=== PATIENT | female | born 1965 | race Two or more races ===

== ENCOUNTER 2020-01-29 10:47 | Emergency (ER) | payer MEDICAID, SELFPAY ==
[2020-01-29 11:01] VITALS: BP 137/85; PULSE 72; RESP 18; TEMP 36.8; O2SAT 95; BMI 30.9
--- NOTE | 2020-01-29 11:06 | ED.BACK ---
HPI - Back Pain/Injury General Chief Complaint: Back Pain/Injury Stated Complaint: back pain Time Seen by Provider: 01/29/20 11:01 Source: patient Mode of arrival: ambulatory Limitations: no limitations History of Present Illness HPI Narrative: 54 yo female with past medical history of anxiety, asthma, migraines, OA here with multiple complaints. Diffuse back pain x 1 week worsened in last 48 hrs. No urinary symptoms. Nausea, vomited once this morning. No diarrhea/constipation or abdominal pain. Tried motrin, apap at home with no relief. Pain radiates to both legs with intermittent numbness/tingling. No bowel or bladder incontinence or saddle anesthesia. MD elicited complaint: back pain Pertinent past history: prior back pain Onset (ago): week(s) (1 week) Timing: constant Severity: mild Quality: sharp Location: lumbar spine and thoracic spine Radiation: none Exacerbating factors: movement Relieving factors: immobilization Context: other (none) Associated symptoms: denies other symptoms Work related injury: No Related Data Previous Rx's Medication Instructions Recorded cyclobenzaprine 10 mg PO TID PRN #10 tab 01/29/20 ketorolac 10 mg PO Q8H PRN #10 tab 01/29/20 lidocaine [Lidoderm] 1 patch TOPICAL DAILY #15 ea 01/29/20 Allergies Allergy/AdvReac Type Severity Reaction Status Date / Time hydroxyzine [HYDROXYZINE] AdvReac Intermediate reports Verified 01/29/20 10:49 redness and swelling Review of Systems Review of Systems: Yes all other systems are reviewed and are negative Constitutional: Constitutional: Reports no additional constitutional complaints, Denies body ache(s), Denies chills, Denies fever(s), Denies headache(s) and Denies weakness Eyes: Eyes: Reports no additional eye complaints and Denies change in vision ENT: Reports system reviewed and no additional complaints, except as documented, Denies dizziness, Denies headache(s), Denies nasal congestion, Denies nasal discharge and Denies neck pain Cardiovascular: Cardiovascular: Reports no additional cardiovascular complaints, Denies chest pain, Denies leg edema and Denies dyspnea Respiratory: Respiratory: Reports no additional respiratory complaints, Denies cough and Denies dyspnea Gastrointestinal: Gastrointestinal: Reports no additional gastrointestinal complaints, Denies abdominal pain, Denies diarrhea, Denies nausea and Denies vomiting Genitourinary: Genitourinary: Reports no additional female genitourinary complaints and Denies urinary incontinence Musculoskeletal: Musculoskeletal: Reports no additional musculoskeletal complaints, Reports back pain, Denies arthralgias, Denies joint swelling, Denies neck pain, Denies numbness and Reports tingling Integumentary/Breasts: Skin/Breast: Reports system reviewed and no additional complaints, except as docu and Denies rash Neurologic: Reports system reviewed and no additional complaints, except as documented, Denies Abnormal speech present, Denies dizziness, Denies headache(s), Denies numbness, Reports tingling and Denies weakness [facility] Past Medical History Attestation statement: The following information was validated with the patient. Source: obtained from family and nursing notes reviewed Medical History Anxiety Asthma Migraine Social History Social History Smoked in Last 30 Days: No Use of substances other than those prescribed or required for medical reasons: Yes Substance Use Type: Heroin Advance Directives: No Advance Directives Information Provided: Yes Physical Exam Vital Signs: Vital Signs: Last Vital Signs Temp 97.8 F 01/29/20 11:58 Pulse 62 01/29/20 11:58 Resp 14 01/29/20 11:58 BP 123/79 01/29/20 11:58 Pulse Ox 97 01/29/20 11:58 Body Mass Index 30.9 Const: General: cooperative, healthy appearing, comfortable and no acute distress Orientation/consciousness: patient oriented x3 Limitations: no limitations HENMT: Head: Yes normal to inspection Ears: hearing grossly normal bilaterally General nose exam: Normal external nose present Face and sinus: Yes normal facial exam Mouth: Normal oral and palatal mucosa present Throat: Yes posterior oropharynx normal Eyes: General: appearance normal, both eyes and all related structures Pupils: Equal, round and reactive pupils present Neck: Neck: Yes normal visual inspection Chest: Chest palpation & inspection: normal inspection of the chest Resp: Effort & Inspection: normal respiratory effort Auscultation: clear to auscultation bilaterally Cardio: Rate: regular rate Rhythm: regular rhythm Peripheral pulses: Peripheral pulses 2+ throughout GI: Inspection: Yes normal to inspection Palpation (GI): Soft to palpation and nontender Auscultation: normal bowel sounds : General: Yes no CVA tenderness Back/Spine/Pelvis: Back: no CVA tenderness Thoracic/Lumbar Spine: thoracic and lumbar spine normal to inspection, pain with thoraco-lumbar ROM (flexion/extension/lateral rotation), paraspinal muscle tenderness on the left and bilaterally, thoracic spinal tenderness, lumbar spinal tenderness and straight leg raise positive (bilateral ) Pelvis: no pain with anterior-posterior compression and no pain with lateral compression Skin: General skin exam: no rashes or lesions noted Neuro: General: patient oriented x3, Normal light touch and pain sensation, no focal motor deficits and normal sensation to monofilament Cranial nerves: Yes CN's II-XII intact bilaterally, Yes Equal, round and reactive pupils present, Yes Bilaterally intact EOM present, Yes Nystagmus not present and Yes Normal facial strength present Cognition (Neuro): normal cognition Speech: No Abnormal speech present Gait exam (Neuro): Normal gait present Motor exam (neuro): 5/5 motor strength present throughout Sensory Exam: Normal double simultaneous stimulation for sensation Deep tendon reflexes (DTR's): Right patellar reflex intensity grade: 2+, Left patellar reflex intensity grade: 2+, Right ankle reflex intensity grade: 2+ and Left ankle reflex intensity grade: 2+ Extrem: General: Yes normal to inspection Course Course Course Narrative: 54 yo female here with diffuse abdominal pain x 1 week with intermittent tingling and radiation in bilateral lower legs. Neuro intact. On exam diffuse lumbar/thoracic tenderness. Will check UA, ur preg, imaging, provide analgesia and re-assess. 1230-UA and negative. X-ray shows arthritic changes. Patient reports pain is nearly resolved after receiving IM Toradol here. Patient up and ambulating, tolerating p.o.. Likely lumbar strain. Reviewed worrisome signs symptoms and when to return to the emergency department. Comfortable discharge home. MDM - Back Pain/Injury Lab Data Labs: Lab Results 01/29/20 Range/Units 12:00 Urine Color YELLOW Urine Appearance HAZY Urine pH 5.5 (5.0-8.0) Ur Specific Hope >= 1.030 H (1.005-1.025) Urine Protein NEG (NEG-TRACE) MG/DL Urine Glucose (UA) NEG (NEG) MG/DL Urine Ketones 5 (NEG) MG/DL Urine Blood NEG (NEG) Urine Nitrite NEG (NEG) Ur Leukocyte Esterase NEG (NEG) Urine Test NEGATIVE (NEGATIVE) Imaging Data lumbar/thoracoc: Attestation: I personally reviewed and interpreted this imaging study as follows: Radiologist's impression: EXAMINATION: LUMBAR AND THORACIC SPINE CLINICAL INFORMATION: Pain COMPARISON: CT abdomen and pelvis of October 12, 2016 TECHNIQUE: Three-view lumbar spine and two-view thoracic spine FINDINGS: AP and lateral views of the thoracic spine demonstrate mild scoliosis convex left at the thoracolumbar junction. No acute fracture identified. No abnormal paraspinal line bulge. Disc spaces are maintained. Pedicles intact. There is mild marginal spurring seen involving the lower thoracic spine. There are 5 nonrib bearing lumbar vertebra. No acute fractures identified. There is a grade 1 spondylolisthesis L4-L5. Facet arthropathy is seen L4-S1 bilaterally. There is significant narrowing of the L5-S1 disc space. No significant sacroiliac joint abnormalities appreciated. XR/XR lumbar spine 2-3V IMPRESSION: Grade 1 spondylolisthesis L4-L5. Facet arthropathy L4-S1. L5-S1 loss of disc space. No acute fracture identified. No significant thoracic spine abnormality identified. Discharge Plan Discharge Clinical Impression: Strain of lumbar region Patient Disposition: Home, Self-Care Instructions: Low Back Strain (ED) Prescriptions: New ketorolac 10 mg tablet 10 mg PO Q8H PRN (Reason: pain) Qty: 10 RF: 0 cyclobenzaprine 10 mg tablet 10 mg PO TID PRN (Reason: muscle spasm) Qty: 10 RF: 0 lidocaine [Lidoderm] 5 % adhesive patch,medicated 1 patch topical DAILY Qty: 15 RF: 0 Referrals: Antonieta Kennedy MD [Primary Care Provider] - 2 days Interventions: ED Discharge Assessment Last Done: 01/29/20 12:48 Discharge Date/Time: 01/29/20 12:50
[2020-01-29] MEDS: Ketorolac Tromethamine 60 MG/2 ML VIAL IM (11:12)
[2020-01-29] MEDS: Cyclobenzaprine HCl 10 MG TABLET PO (11:12)
[2020-01-29 11:58] VITALS: BP 123/79; PULSE 62; RESP 14; TEMP 36.6; O2SAT 97
[2020-01-29 12:06] LABS: Glucose Urine UA NEG (NEG); Leukocyte Esterase Urine NEG (NEG); Nitrite Urine NEG (NEG); PH 5.5 (5.0-8.0); Specific Gravity - Urine >= 1.030 (1.005-1.025); Urine Blood NEG (NEG); Urine Ketones 5 MG/DL (NEG); Urine Protein NEG (NEG-TRACE)
[2020-01-29 12:10] LABS: Appearance Urine HAZY; Color Urine YELLOW; UPreg QC Valid YES; Urine Pregnancy NEGATIVE (NEGATIVE)
== END 2020-01-29 12:50 | disposition home or self-care (01) ==
PROVIDERS: Nurse Practitioner Family; Emergency Provider Emergency Medicine; PCP Family Medicine
DX: S39.012A Strain of muscle, fascia and tendon of lower back, initial encounter (principal); M54.6 Pain in thoracic spine; X58.XXXA Exposure to other specified factors, initial encounter; Y93.9 Activity, unspecified; Y92.9 Unspecified place or not applicable; Y99.9 Unspecified external cause status; Z79.899 Other long term (current) drug therapy
CPT/HCPCS: 72070; 72100; 81003; 81025; 96372; 99284; J1885

== ENCOUNTER → 2020-02-27 14:24 | Outpatient (BNVA) | payer MEDICAID, SELFPAY | PROVIDERS: PCP Family Medicine; Referring Provider Family Medicine; Visit Provider Internal Medicine Gastroenterology | DX: Z76.89 Persons encountering health services in other specified circumstances (principal) ==

== ENCOUNTER 2020-04-25 15:24 | Outpatient (REF) | payer MEDICAID, SELFPAY | END 2020-04-25 15:25 | disposition home or self-care (01) | LOC: HO.LAB 15:24 | PROVIDERS: Visit Provider Internal Medicine | DX: Z20.822 Contact with and (suspected) exposure to COVID-19 (principal) | CPT/HCPCS: 36415; C9803; U0003; U0005 ==

== ENCOUNTER 2020-05-02 08:33 | Day surgery (SDC) | payer MEDICAID, SELFPAY ==
[2020-04-26 15:08] VITALS: BMI 31.8
--- NOTE | 2020-04-27 12:21 | HO.ANESPROP2 ---
Documented by User: Hien Jovel 04/27/20 12:25 HPI - Anesthesia Eval Consult details Narrative: 54yo F for Upper Endoscopy and Colonoscopy h/o IVDA - ? last used PMFSH Past Medical History Medical History (Updated 04/26/20 @ 15:03 by Starla Olivares) Anxiety Asthma Chronic back pain Chronic knee pain Depression History of alcohol dependence History of fatty infiltration of liver History of heroin use History of left bundle branch block (LBBB) History of opioid abuse History of panic disorder History of seizure HTN (hypertension) Migraine Surgical History Surgical History (Updated 04/26/20 @ 15:00 by Starla Olivares) Hx of colonoscopy Hx of exploratory laparotomy Social History Social History Smoking Status: Current every day smoker Use of substances other than those prescribed or required for medical reasons: Yes Substance Use Type: Heroin Advance Directives: No Advance Directives Information Provided: No Advance Directives on File: No Recently lost weight without trying: No Narrative Narrative: 2019 w/u for chest pain was unremarkable 09/2019 Cardiology clearance for knee surgery (new LBBB) Meds Allergies Allergy/AdvReac Type Severity Reaction Status Date / Time hydroxyzine [HYDROXYZINE] AdvReac Intermediate reports Verified 01/29/20 10:49 redness and swelling Home Medications Medication Instructions Recorded Confirmed Type albuterol sulfate [ProAir HFA] 2 puff INHALATION 6XD PRN 04/26/20 04/26/20 History clonidine HCl 0.1 mg PO BID PRN 04/26/20 04/26/20 History fluticasone propionate [Flovent 1 puff INHALATION BID 04/26/20 04/26/20 History HFA] lisinopril 5 mg PO DAILY 04/26/20 04/26/20 History buprenorphine-naloxone [Suboxone] 1 strip SUBLINGUAL BID 05/02/20 05/02/20 History Exam Exam Date and Time: April 27, 2020 1221 Height,Weight and Vital Signs: Height 5 ft 3 in Weight 81.647 kg Pertinent Lab Results Pertinent Lab Results: Laboratory Tests 11/21/19 11/21/19 18:39 18:39 WBC 6.8 Hgb 12.8 Hct 39.8 Plt Count 297 Sodium 138 Potassium 5.3 H Chloride 103 BUN 17 H Creatinine 0.74 Narrative Narrative: Echo 2019 nml study Nuc stress 2019: nml perfusion Assessment and Plan Assessment Anesthesia Assessment: Chart Reviewed Documented by User: Juliette Roque 05/02/20 09:37 PMFSH Past Medical History Medical History (Updated 04/26/20 @ 15:03 by Starla Olivares) Anxiety Asthma Chronic back pain Chronic knee pain Depression History of alcohol dependence History of fatty infiltration of liver History of heroin use History of left bundle branch block (LBBB) History of opioid abuse History of panic disorder History of seizure HTN (hypertension) Migraine Surgical History Surgical History (Updated 04/26/20 @ 15:00 by Starla Olivares) Hx of colonoscopy Hx of exploratory laparotomy Social History Social History Smoking Status: Current every day smoker Use of substances other than those prescribed or required for medical reasons: Yes Substance Use Type: Heroin Advance Directives: No Advance Directives Information Provided: No Advance Directives on File: No Recently lost weight without trying: No Meds Allergies Allergy/AdvReac Type Severity Reaction Status Date / Time hydroxyzine [HYDROXYZINE] AdvReac Intermediate reports Verified 01/29/20 10:49 redness and swelling Home Medications Medication Instructions Recorded Confirmed Type albuterol sulfate [ProAir HFA] 2 puff INHALATION 6XD PRN 04/26/20 04/26/20 History clonidine HCl 0.1 mg PO BID PRN 04/26/20 04/26/20 History fluticasone propionate [Flovent 1 puff INHALATION BID 04/26/20 04/26/20 History HFA] lisinopril 5 mg PO DAILY 04/26/20 04/26/20 History buprenorphine-naloxone [Suboxone] 1 strip SUBLINGUAL BID 05/02/20 05/02/20 History Exam Airway Mallampati Class: II TM Dist: >3cm Neck ROM: Full Heart: RRR Lungs: CtA Bl Assessment and Plan Assessment Anesthesia Assessment: Anesthesia Plan Discussed and Chart Reviewed Final Anesthetic Review NPO: Yes (Sio water with meds) ASA Class: II Final Preanesthetic Review: Meds/Allgs Chart Reviewed and Consent Obtained/Reviewed Patient Risk: Intermediate Procedure Risk: Intermediate Anesthetic Plan Anesthetic Plan: MAC: Disposition: Standard PACU
[2020-05-02 08:41] VITALS: BP 116/66; PULSE 87; RESP 18; TEMP 36.6; O2SAT 96
[2020-05-02] MEDS: Lactated Ringers 1,000 ML 100 ML IVCONT (08:56)
--- NOTE | 2020-05-02 08:58 | PC.NURSE ---
pt arin 3oz of water at 8am aneshtesia and dr marcus aware surgery at 10 pt aware
--- NOTE | 2020-05-02 09:01 | PC.NURSE ---
pt sts last dose of suboxane 05/01/20 also no heroin for 1 mth
--- NOTE | 2020-05-02 09:34 | PM.OP ---
Brief Operative Note Date of Service: 05/02/20 Pre-op diagnosis: abdo pain, nausea Post-op diagnosis: same Procedure: see op note Surgeon: Aaron Duarte MD Anesthesia: MAC Estimated blood loss (mL): 0 Condition: stable Disposition: PACU
--- NOTE | 2020-05-02 09:35 | P.HPSUR_ITS ---
Pre-Procedural Eval Section B Chief Complaint: hemorrhage of anus and rectum,abdominal pain Relevant Social History: Tobacco Use (heroin) Present Medications: see Short Stay Collaborative assessment Medical History: Significant History (Anxiety Asthma Chronic back pain Chronic knee pain Depression History of alcohol dependence History of fatty infiltration of liver History of heroin use History of left bundle branch block (LBBB) History of opioid abuse History of panic disorder History of seizure HTN (hypertension) Migraine) History of Previous Operations: Relevant previous surgery/procedure and date(s) (exp lap) Allergies: Allergies Allergy/AdvReac Type Severity Reaction Status Date / Time hydroxyzine [HYDROXYZINE] AdvReac Intermediate reports Verified 01/29/20 10:49 redness and swelling Review of Systems Sugical H&P ROS: Negative: Constitution, Cardiovascular, Respiratory, Neuro logical, Psychiatric, Hem-Onc, Allergic/Immunologic, Gastrointestinal, Genitourinary, Musculoskeletal, Integumentary, Endocrine and Eyes/Ears/Nose/Throat Exam Surgical H&P Exam: Normal: HEENT, Normal: Heart, Normal: Lungs, Normal: Extremities, Normal: Abdomen, Normal: Skin and Normal: Neurological Plan Diagnosis/Plan: Unchanged I have reviewed the history and physical and performed a pertinent physical examination on my patient. No changes have occurred unless specified.
--- NOTE | 2020-05-02 10:00 | W.PM.OPN ---
Operative Note Operative Note Date of Service: 05/02/20 Narrative: Procedure Description: EGD, (booked for colonoscopy also but aborted as formed stool in rectal vault) FLEXIBLE TRANSORAL UPPER GASTROINTESTINAL ENDOSCOPY UPPER ENDOSCOPY Consent: Indications for the procedure and potential complications of bleeding, perforation, reaction to medications and missed diagnosis were discussed with the patient and informed consent was obtained. Instrument: Olympus GIF H 190 J mid size upper endoscope Monitoring: Vital signs and clinical assessment, continuous EKG monitoring, Pulse oximetry, Carbon Dioxide monitoring and blood pressure monitoring were done throughout the procedure. Procedure: The patient was placed in the left lateral decubitis position and pre-procedure medications were administered and a bite block was placed. The endoscope was inserted into the mouth and advanced under direct vision to the third part of duodenum. A careful inspection was made as the upper endoscope was withdrawn including a retroflexed examination of the proximal stomach; Findings and interventions are described below. Findings: Larynx:normal Esophagus: GE junction at 38 cm, diaphragm hiatus at 38 cm, erosive esophagitis, LA grade C Stomach: Patchy gastric erythema with large amount of food debris noted. Grade 2 flap valve on retroflexed examination of the cardia. Duodenum: Normal bulb and descending duodenum Intervention: no bx taken Impression/Findings: erosive esophagitis possible gastroparesis aborted colonoscopy PLAN: check compliance with prep instructions check if taking PPI, if not then commence pantoprazole 40 mg daily repeat EGD in 3 months, can reattempt colonoscopy same time order gastric emptying study, may have gastroparesis from narc use
[2020-05-02 10:05] VITALS: BP 96/59; PULSE 70; RESP 16; TEMP 36.3; O2SAT 96
[2020-05-02 10:20] VITALS: BP 101/61; PULSE 74; RESP 16; TEMP 36.2; O2SAT 97
--- NOTE | 2020-05-02 11:03 | HO.POSTANES ---
Post Anesthesia Evaluation Post Anesthesia Evaluation Vital Signs: Vital Signs Temp Pulse Resp BP Pulse Ox 05/02/20 10:20 97.2 F 74 16 101/61 97 05/02/20 10:05 97.3 F 70 16 96/59 L 96 05/02/20 08:41 98 F 87 18 116/66 96 Anesthesia: Monitored Mental Status: Awake Pain Control: Satisfactory Nausea/Vomiting: None Hydration: Adequate Anesthesia-Related Issues: No Anes. Related Issues
== END 2020-05-02 10:42 ==
LOC: HO.SSS 08:34
PROVIDERS: PCP Family Medicine; Visit Provider Internal Medicine Gastroenterology
PROC: (CPT 43235; principal; 2020-05-02 09:30)
DX: R10.10 Upper abdominal pain, unspecified (principal); K22.10 Ulcer of esophagus without bleeding; K62.5 Hemorrhage of anus and rectum; I10 Essential (primary) hypertension
CPT/HCPCS: 43235

== ENCOUNTER 2020-06-02 17:20 | Emergency (ER) | payer MEDICAID, SELFPAY ==
[2020-06-02 18:27] VITALS: BP 118/78; PULSE 73; RESP 18; TEMP 37; O2SAT 97; BMI 30.2
--- NOTE | 2020-06-02 18:43 | ED.URI ---
HPI - URI/Sore Throat General Chief Complaint: Upper Respiratory Symptoms Stated Complaint: head pressure, diff breathing Time Seen by Provider: 06/02/20 18:43 Source: patient Mode of arrival: ambulatory Limitations: no limitations History of Present Illness HPI Narrative: Patient been congested for last 2- 3 weeks has occasional epistaxis using cocaine last use was 3 days ago, putting tissue paper in the nose to stop bleeding now comes here for nasal congestion feels nose is blocked. No fever no chills no cough Related Data Home Medications Medication Instructions Recorded Confirmed albuterol sulfate [ProAir HFA] 2 puff INHALATION 6XD PRN 04/26/20 04/26/20 clonidine HCl 0.1 mg PO BID PRN 04/26/20 04/26/20 fluticasone propionate [Flovent 1 puff INHALATION BID 04/26/20 04/26/20 HFA] lisinopril 5 mg PO DAILY 04/26/20 04/26/20 buprenorphine-naloxone [Suboxone] 1 strip SUBLINGUAL BID 05/02/20 05/02/20 Previous Rx's Medication Instructions Recorded cyclobenzaprine 10 mg PO TID PRN #10 tab 01/29/20 ketorolac 10 mg PO Q8H PRN #10 tab 01/29/20 lidocaine [Lidoderm] 1 patch TOPICAL DAILY #15 ea 01/29/20 peg-electrolyte solution 420 gram 240 ml PO Q10M #4000 ml 02/27/20 oral solution bisacodyl 5 mg tablet,delayed 10 mg PO ONCE 1 Days #2 tab 04/30/20 release polyethylene glycol 3350 17 238 g PO ONCE 1 Days #238 g 04/30/20 gram/dose oral powder pantoprazole 40 mg PO DAILY #90 tab 05/02/20 amoxicillin-pot clavulanate 1 tab PO BID #20 tab 06/02/20 [Augmentin] Allergies Allergy/AdvReac Type Severity Reaction Status Date / Time hydroxyzine [HYDROXYZINE] AdvReac Intermediate reports Verified 06/02/20 18:37 redness and swelling Review of Systems Review of Systems: Yes all other systems are reviewed and are negative PMFSH Past Medical History Medical History Anxiety Asthma Chronic back pain Chronic knee pain Depression History of alcohol dependence History of fatty infiltration of liver History of heroin use History of left bundle branch block (LBBB) History of opioid abuse History of panic disorder History of seizure HTN (hypertension) Migraine Surgical History Hx of colonoscopy Hx of exploratory laparotomy Social History Social History Smoking Status: Current every day smoker Substance Use Type: Heroin Advance Directives: No Advance Directives Information Provided: No Physical Exam Vital Signs: Vital Signs: Last Vital Signs Temp 98.6 F 06/02/20 18:27 Pulse 73 06/02/20 18:27 Resp 18 06/02/20 18:27 BP 118/78 06/02/20 18:27 Pulse Ox 97 06/02/20 18:27 Body Mass Index 30.2 Const: General: no acute distress Orientation/consciousness: patient oriented x3 HENMT: Head: Yes normal to inspection Ears: hearing grossly normal bilaterally and TM's normal bilaterally General nose exam: Normal external nose present, Nasal discharge present mucoid and Foreign body present in naris (Toilet paper small amount) bilateral Face and sinus: Yes normal facial exam and Yes sinus tenderness (Bilateral maxillary sinus) Mouth: Normal oral and palatal mucosa present Neck: Neck: Yes full ROM and Yes no lymphadenopathy Resp: Effort & Inspection: normal respiratory effort Auscultation: clear to auscultation bilaterally, no crackles and no rales Cardio: Palpation: normal PMI Rate: regular rate Rhythm: regular rhythm Heart sounds: S1 normal heart sound present and S2 normal heart sound present GI: Inspection: Yes normal to inspection Palpation (GI): Soft to palpation and nontender Neuro: General: patient oriented x3 MDM - URI/Sore Throat MDM Narrative Medical decision making narrative: Patient with nasal congestion clinically sinusitis with slight amount of tissue paper which was cleaned by water irrigation will discharge patient home Discharge Plan Discharge Clinical Impression: Sinusitis Patient Disposition: Home, Self-Care Instructions: Sinusitis (ED) Additional Instructions: Stop using cocaine Take antibiotics as advised Prescriptions: New amoxicillin-pot clavulanate [Augmentin] 875-125 mg tablet 1 tab PO BID Qty: 20 RF: 0 No Action bisacodyl [Dulcolax (bisacodyl)] 5 mg tablet,delayed release (DR/EC) 10 mg PO ONCE 1 Days Qty: 2 RF: 0 polyethylene glycol 3350 [Miralax] 17 gram/dose powder 238 g PO ONCE 1 Days Qty: 238 RF: 0 clonidine HCl 0.1 mg Tablet 0.1 mg PO BID PRN (Reason: Sweating) RF: 0 Flovent HFA 220 mcg/actuation Hfa Aerosol Inhaler 1 puff INHALATION BID RF: 0 lisinopril 5 mg Tablet 5 mg PO DAILY RF: 0 albuterol sulfate [ProAir HFA] 90 mcg/actuation Hfa Aerosol Inhaler 2 puff INHALATION 6XD PRN (Reason: Wheezing) RF: 0 buprenorphine-naloxone [Suboxone] 8-2 mg film 1 strip sublingual BID RF: 0 pantoprazole 40 mg tablet,delayed release (DR/EC) 40 mg PO DAILY Qty: 90 RF: 2 ketorolac 10 mg tablet 10 mg PO Q8H PRN (Reason: pain) Qty: 10 RF: 0 cyclobenzaprine 10 mg tablet 10 mg PO TID PRN (Reason: muscle spasm) Qty: 10 RF: 0 lidocaine [Lidoderm] 5 % adhesive patch,medicated 1 patch topical DAILY Qty: 15 RF: 0 peg-electrolyte soln [TriLyte With Flavor Packets] 420 gram recon soln 240 ml PO Q10M Qty: 4000 RF: 0
[2020-06-02] MEDS: Amoxicillin/Potassium Clav 875 MG TABLET PO (19:31)
--- NOTE | 2020-06-02 19:32 | PC.NURSE ---
pt reports that bleeding has stopped, not present for at least 6 hours. pt understands to return for and reaction to antibiotic.
== END 2020-06-03 08:20 | disposition home or self-care (01) ==
PROVIDERS: Emergency Provider Internal Medicine
DX: J32.9 Chronic sinusitis, unspecified (principal); R04.0 Epistaxis; F11.10 Opioid abuse, uncomplicated; F14.10 Cocaine abuse, uncomplicated; F17.200 Nicotine dependence, unspecified, uncomplicated; Z79.899 Other long term (current) drug therapy; Z71.6 Tobacco abuse counseling
CPT/HCPCS: 99282; 99283

== ENCOUNTER 2020-07-24 17:36 | Emergency (ER) | payer MEDICAID, SELFPAY ==
[2020-07-24 17:49] VITALS: BP 104/67; PULSE 109; RESP 18; TEMP 36.7; O2SAT 96; BMI 30.5
--- NOTE | 2020-07-24 18:16 | ED.GENADULT ---
HPI - General Adult General Chief complaint: Extremity Problem Stated complaint: R Knee Pain S/P Injury Time Seen by Provider: 07/24/20 17:54 Source: patient Mode of arrival: ambulatory Limitations: no limitations History of Present Illness HPI narrative: 54-year-old female with history of osteoarthritis here with right knee pain for months. Worsening over the last few days. Patient denies any new injury or trauma. She tells me that she has intermittent pain and swelling at times. She has no associated redness, warmth or fever. No calf pain or swelling. She has been seen by Orthopedics and recommended that she have a knee replacement but the patient tells me that she has been unable to do so due to COVID. Taking Tylenol for pain Related Data Home Medications Medication Instructions Recorded Confirmed albuterol sulfate [ProAir HFA] 2 puff INHALATION 6XD PRN 04/26/20 04/26/20 clonidine HCl 0.1 mg PO BID PRN 04/26/20 04/26/20 fluticasone propionate [Flovent 1 puff INHALATION BID 04/26/20 04/26/20 HFA] lisinopril 5 mg PO DAILY 04/26/20 04/26/20 buprenorphine-naloxone [Suboxone] 1 strip SUBLINGUAL BID 05/02/20 05/02/20 Previous Rx's Medication Instructions Recorded cyclobenzaprine 10 mg PO TID PRN #10 tab 01/29/20 ketorolac 10 mg PO Q8H PRN #10 tab 01/29/20 lidocaine [Lidoderm] 1 patch TOPICAL DAILY #15 ea 01/29/20 peg-electrolyte solution 420 gram 240 ml PO Q10M #4000 ml 02/27/20 oral solution bisacodyl 5 mg tablet,delayed 10 mg PO ONCE 1 Days #2 tab 04/30/20 release polyethylene glycol 3350 17 238 g PO ONCE 1 Days #238 g 04/30/20 gram/dose oral powder pantoprazole 40 mg PO DAILY #90 tab 05/02/20 amoxicillin-pot clavulanate 1 tab PO BID #20 tab 06/02/20 [Augmentin] cyclobenzaprine 10 mg PO TID PRN #10 tab 07/24/20 ketorolac 10 mg PO Q8H PRN #10 tab 07/24/20 Allergies Allergy/AdvReac Type Severity Reaction Status Date / Time hydroxyzine [HYDROXYZINE] AdvReac Intermediate reports Verified 07/24/20 17:48 redness and swelling Review of Systems Review of Systems: Yes all other systems are reviewed and are negative Constitutional: Constitutional: Reports no additional constitutional complaints, Denies body ache(s), Denies chills, Denies fever(s), Denies headache(s) and Denies weakness Eyes: Eyes: Reports no additional eye complaints and Denies change in vision ENT: Reports system reviewed and no additional complaints, except as documented, Denies dizziness, Denies headache(s), Denies nasal congestion, Denies nasal discharge and Denies neck pain Cardiovascular: Cardiovascular: Reports no additional cardiovascular complaints, Denies chest pain, Denies leg edema and Denies dyspnea Respiratory: Respiratory: Reports no additional respiratory complaints, Denies cough and Denies dyspnea Gastrointestinal: Gastrointestinal: Reports no additional gastrointestinal complaints, Denies abdominal pain, Denies diarrhea, Denies nausea and Denies vomiting Genitourinary: Genitourinary: Reports no additional female genitourinary complaints and Denies urinary incontinence Musculoskeletal: Musculoskeletal: Reports no additional musculoskeletal complaints, Denies back pain, Reports arthralgias, Reports joint swelling, Denies limited range of motion, Denies neck pain, Denies numbness and Denies tingling Integumentary/Breasts: Skin/Breast: Reports system reviewed and no additional complaints, except as docu and Denies rash Neurologic: Reports system reviewed and no additional complaints, except as documented, Denies Abnormal speech present, Denies dizziness, Denies headache(s), Denies numbness, Denies tingling and Denies weakness [facility] Past Medical History Attestation statement: The following information was validated with the patient. Source: old records reviewed and nursing notes reviewed Medical History Anxiety Asthma Chronic back pain Chronic knee pain Depression History of alcohol dependence History of fatty infiltration of liver History of heroin use History of left bundle branch block (LBBB) History of opioid abuse History of panic disorder History of seizure HTN (hypertension) Migraine Surgical History Hx of colonoscopy Hx of exploratory laparotomy Social History Social History Alcohol intake: never Smoking Status: Current every day smoker Smoked in Last 30 Days: No Use of substances other than those prescribed or required for medical reasons: No Substance Use Type: Heroin Any prior treatment program specific to substance use: No Advance Directives: No Advance Directives Information Provided: Yes Physical Exam Vital Signs: Vital Signs: Last Vital Signs Temp 98.0 F 07/24/20 17:49 Pulse 109 H 07/24/20 17:49 Resp 18 07/24/20 17:49 BP 104/67 07/24/20 17:49 Pulse Ox 96 07/24/20 17:49 Body Mass Index 30.5 Const: General: cooperative, healthy appearing, comfortable and no acute distress Orientation/consciousness: patient oriented x3 Limitations: no limitations HENMT: Head: Yes normal to inspection Ears: hearing grossly normal bilaterally General nose exam: Normal external nose present Face and sinus: Yes normal facial exam Mouth: Normal oral and palatal mucosa present Throat: Yes posterior oropharynx normal Eyes: General: appearance normal, both eyes and all related structures Pupils: Equal, round and reactive pupils present Neck: Neck: Yes normal visual inspection Chest: Chest palpation & inspection: normal inspection of the chest Resp: Effort & Inspection: normal respiratory effort Auscultation: clear to auscultation bilaterally Cardio: Rate: regular rate Rhythm: regular rhythm Peripheral pulses: Peripheral pulses 2+ throughout GI: Inspection: Yes normal to inspection Palpation (GI): Soft to palpation and nontender Auscultation: normal bowel sounds Back/Spine/Pelvis: Thoracic/Lumbar Spine: thoracic and lumbar spine normal to inspection Skin: General skin exam: no rashes or lesions noted Neuro: General: patient oriented x3, no focal motor deficits and normal sensation to monofilament Cranial nerves: Yes Equal, round and reactive pupils present Cognition (Neuro): normal cognition Speech: No Abnormal speech present Gait exam (Neuro): Normal gait present Motor exam (neuro): 5/5 motor strength present throughout Extrem: Other: Tenderness to the right anterior knee. There is some mild swelling over the knee and over the medial aspect with no obvious joint effusion. There is no erythema or warmth. No posterior knee pain or posterior calf pain. Full range of motion General: Yes normal to inspection Course Course Course Narrative: Acute on chronic right knee pain secondary to osteoarthritis. No injury or trauma. Discussed with [facility], pain control at home and follow-up with orthopedics. Reviewed worrisome signs and symptoms and when to return to the emergency department. Comfortable with discharge home. Discharge Plan Discharge Clinical Impression: Osteoarthritis Qualifiers: Osteoarthritis location: knee Osteoarthritis type: primary Laterality: right Qualified Code(s): M17.11 - Unilateral primary osteoarthritis, right knee Patient Disposition: Home, Self-Care Instructions: Osteoarthritis (ED) Additional Instructions: Ice, elevation, limit weight bearing, yara wrap for comfort Follow-up with otheropedics Prescriptions: New cyclobenzaprine 10 mg tablet 10 mg PO TID PRN (Reason: muscle spasm) Qty: 10 RF: 0 ketorolac 10 mg tablet 10 mg PO Q8H PRN (Reason: pain) Qty: 10 RF: 0 No Action bisacodyl [Dulcolax (bisacodyl)] 5 mg tablet,delayed release (DR/EC) 10 mg PO ONCE 1 Days Qty: 2 RF: 0 polyethylene glycol 3350 [Miralax] 17 gram/dose powder 238 g PO ONCE 1 Days Qty: 238 RF: 0 clonidine HCl 0.1 mg Tablet 0.1 mg PO BID PRN (Reason: Sweating) RF: 0 Flovent HFA 220 mcg/actuation Hfa Aerosol Inhaler 1 puff INHALATION BID RF: 0 lisinopril 5 mg Tablet 5 mg PO DAILY RF: 0 albuterol sulfate [ProAir HFA] 90 mcg/actuation Hfa Aerosol Inhaler 2 puff INHALATION 6XD PRN (Reason: Wheezing) RF: 0 buprenorphine-naloxone [Suboxone] 8-2 mg film 1 strip sublingual BID RF: 0 pantoprazole 40 mg tablet,delayed release (DR/EC) 40 mg PO DAILY Qty: 90 RF: 2 ketorolac 10 mg tablet 10 mg PO Q8H PRN (Reason: pain) Qty: 10 RF: 0 cyclobenzaprine 10 mg tablet 10 mg PO TID PRN (Reason: muscle spasm) Qty: 10 RF: 0 lidocaine [Lidoderm] 5 % adhesive patch,medicated 1 patch topical DAILY Qty: 15 RF: 0 amoxicillin-pot clavulanate [Augmentin] 875-125 mg tablet 1 tab PO BID Qty: 20 RF: 0 peg-electrolyte soln [TriLyte With Flavor Packets] 420 gram recon soln 240 ml PO Q10M Qty: 4000 RF: 0 Referrals: Mesfin Allen MD [Physician] - 2 days Interventions: ED Discharge Assessment Last Done: 07/24/20 18:25 Discharge Date/Time: 07/24/20 18:26
[2020-07-24] MEDS: Ketorolac Tromethamine 60 MG/2 ML VIAL IM (18:19)
== END 2020-07-24 18:26 | disposition home or self-care (01) ==
PROVIDERS: Emergency Provider Internal Medicine
DX: M17.11 Unilateral primary osteoarthritis, right knee (principal); M25.561 Pain in right knee; I10 Essential (primary) hypertension; F17.200 Nicotine dependence, unspecified, uncomplicated
CPT/HCPCS: 96372; 99284; J1885

== ENCOUNTER 2020-07-30 13:11 | Outpatient (REF) | payer MEDICAID, SELFPAY ==
--- NOTE | ~2020-07-30 | XR_ITS ---
EXAMINATION: KNEE X-RAY CLINICAL INFORMATION: Pain COMPARISON: Previous x-ray July 2019 TECHNIQUE: Standing AP view of both knees and lateral and sunrise view of the right knee FINDINGS: Right: There is mild medial subluxation of the distal femur with respect to the proximal tibia. There is lateral subluxation of the patella on the sunrise view. Bone alignment is otherwise normal. No fracture or dislocation is seen. There is arthritis at the medial femoral tibial and patellofemoral joints with joint space narrowing and osteophyte formation. There is a large joint effusion. Standing AP view of the left knee is unremarkable. XR/XR knee RT 2V IMPRESSION: Right knee: Degenerative changes. Unremarkable standing AP view of the left knee.
--- NOTE | ~2020-07-30 | XR_ITS ---
EXAMINATION: KNEE X-RAY CLINICAL INFORMATION: Pain COMPARISON: Previous x-ray July 2019 TECHNIQUE: Standing AP view of both knees and lateral and sunrise view of the right knee FINDINGS: Right: There is mild medial subluxation of the distal femur with respect to the proximal tibia. There is lateral subluxation of the patella on the sunrise view. Bone alignment is otherwise normal. No fracture or dislocation is seen. There is arthritis at the medial femoral tibial and patellofemoral joints with joint space narrowing and osteophyte formation. There is a large joint effusion. Standing AP view of the left knee is unremarkable. XR/XR knee standing BI IMPRESSION: Right knee: Degenerative changes. Unremarkable standing AP view of the left knee.
== END 2020-07-30 13:12 | disposition home or self-care (01) ==
LOC: HO.HOSX 13:11
PROVIDERS: Visit Provider Orthopaedic Surgery
DX: M25.561 Pain in right knee (principal); M25.562 Pain in left knee
CPT/HCPCS: 73560; 73565

== ENCOUNTER → 2020-07-31 13:53 | Outpatient (BNVA) | payer MEDICAID, SELFPAY | PROVIDERS: Visit Provider Orthopaedic Surgery | DX: M17.11 Unilateral primary osteoarthritis, right knee (principal) | CPT/HCPCS: 99212 ==

== ENCOUNTER → 2020-08-15 12:34 | Outpatient (BNVA) | payer MEDICAID, SELFPAY | PROVIDERS: Visit Provider Orthopaedic Surgery | DX: Z01.812 Encounter for preprocedural laboratory examination (principal); Z01.810 Encounter for preprocedural cardiovascular examination; M17.11 Unilateral primary osteoarthritis, right knee ==

== ENCOUNTER 2020-09-13 00:38 | Inpatient (IN) | payer MEDICAID, SELFPAY ==
--- NOTE | ~2020-09-13 | XR_ITS ---
EXAMINATION: XR PORTABLE CHEST CLINICAL INFORMATION: Shortness of breath. COMPARISON: 11/21/2019 TECHNIQUE: AP portable upright view of the chest FINDINGS: Cardiac leads overlie the chest. Cardiac and mediastinal contours are normal. Pulmonary vasculature is normal. No consolidation, pneumothorax, or pleural effusion. Lungs are hyperexpanded. No acute osseous findings. Mild thoracic degenerative disc disease. XR/XR chest 1V IMPRESSION: No acute pulmonary findings.
[2020-09-13 01:08] VITALS: BP 147/83; PULSE 91; RESP 20; TEMP 36.6; O2SAT 96; BMI 33.3
--- NOTE | 2020-09-13 01:42 | ED_ITS ---
HPI - Allergic Reaction General Chief complaint: Allergic Reaction Stated complaint: swollen face, hard to breathe Time Seen by Provider: 09/13/20 01:33 Source: patient Mode of arrival: ambulatory Limitations: no limitations History of Present Illness HPI narrative: Patient comes emergency room complaining of an allergic reaction. Patient states that earlier today she had headache, her friend gave her an [id number] medication for migraine headache. 4 hours later, patient started having swelling in her face, feeling that her throat was getting swollen, and having shortness of breath. Patient states that now on arrival to the emergency room she feels a bit better, the swelling is not as bad as earlier today. Patient does not know what medication her friend gave her. Patient denies hives or itchiness in her skin. However, discussing with the patient the medication she takes, patient states she takes lisinopril. Related Data Home Medications Medication Instructions Recorded Confirmed albuterol sulfate [ProAir HFA] 2 puff INHALATION 6XD PRN 04/26/20 08/15/20 clonidine HCl 0.1 mg PO BID PRN 04/26/20 08/15/20 fluticasone propionate [Flovent 1 puff INHALATION BID 04/26/20 08/15/20 HFA] lisinopril 5 mg PO DAILY 04/26/20 08/15/20 Previous Rx's Medication Instructions Recorded cyclobenzaprine 10 mg PO TID PRN #10 tab 01/29/20 ketorolac 10 mg PO Q8H PRN #10 tab 01/29/20 lidocaine [Lidoderm] 1 patch TOPICAL DAILY #15 ea 01/29/20 peg-electrolyte solution 420 gram 240 ml PO Q10M #4000 ml 02/27/20 oral solution bisacodyl 5 mg tablet,delayed 10 mg PO ONCE 1 Days #2 tab 04/30/20 release polyethylene glycol 3350 17 238 g PO ONCE 1 Days #238 g 04/30/20 gram/dose oral powder pantoprazole 40 mg PO DAILY #90 tab 05/02/20 amoxicillin-pot clavulanate 1 tab PO BID #20 tab 06/02/20 [Augmentin] cyclobenzaprine 10 mg PO TID PRN #10 tab 07/24/20 ketorolac 10 mg PO Q8H PRN #10 tab 07/24/20 Allergies Allergy/AdvReac Type Severity Reaction Status Date / Time lisinopril Allergy Severe Angioedema Verified 09/13/20 01:39 hydroxyzine [HYDROXYZINE] AdvReac Intermediate reports Verified 07/31/20 14:19 redness and swelling Review of Systems Review of Systems: Constitutional : No Weight loss, No Fever, No Chills, No Night Sweats, No Fatigue, No Malaise ENT/Mouth : No Hearing loss, No Ear Pain, No Nasal Congestion, No Sinus Pain, complaining of hoarseness, throat swelling and discomfort, Eyes: No Eye Pain, No Swelling, No Redness, No Foreign Body, No Discharge, No Vision Changes, complaining of facial swelling Cardiovascular : No Chest Pain, complaining of mild shortness of breath Respiratory : No Cough, No Sputum, No Wheezing, No Smoke Exposure, complaining of shortness of breath Gastrointestinal : No Nausea, No Vomiting, No Diarrhea, No Constipation, No abdominal Pain, No Hematochezia, No Melena Genitourinary : no irregular bleeding, No Dysuria, No Urinary Frequency, No Hematuria, No Urinary Incontinence, No Urgency, No Flank Pain, No Urinary Flow Changes, No Hesitancy Musculoskeletal : No joint pain, No Myalgias, No Joint Swelling Skin : No Skin Lesions, No rash Neuro : No Weakness, No Numbness, No Paresthesias, No Loss of Consciousness, No Dizziness, No Headache Psych : No Anxiety/Panic, No Depression, No SI/HI/AH/VH, No Social Issues, Heme/Lymph: No Bruising, No Bleeding,No Lymphadenopathy Endocrine : No Polyuria, No Polydipsia, No Temperature Intolerance [facility] Past Medical History Medical History Anxiety Asthma Chronic back pain Chronic knee pain Depression History of alcohol dependence History of fatty infiltration of liver History of heroin use History of left bundle branch block (LBBB) History of opioid abuse History of panic disorder History of seizure HTN (hypertension) Migraine Surgical History Hx of colonoscopy Hx of exploratory laparotomy Social History Social History (Updated 07/31/20 @ 14:19 by MITZI Martienz) Alcohol intake: never Substance Use Type: Heroin Advance Directives: No Advance Directives Information Provided: No Current occupational status: unemployed Physical Exam Vital Signs: Vital Signs: Last Vital Signs Temp 97.8 F 09/13/20 01:08 Pulse 91 09/13/20 01:08 Resp 20 09/13/20 01:08 BP 147/83 H 09/13/20 01:08 Pulse Ox 96 09/13/20 01:08 Body Mass Index 33.3 Appearance: Alert. Oriented X3. No acute distress. Eyes: Pupils equal, round and reactive to light, mild periorbital edema. ENT: Uvula and oropharynx is edematous , mild edema around the nose Neck: Normal inspection. Neck supple. No lymph nodes noted. No crepitus CVS: Normal heart rate and rhythm. Pulses normal. Normal S1 and S2 Respiratory: No respiratory distress. Breath sounds normal. No Wheezing. No rales oxygen saturation 100% Abdomen: Soft and nontender. No rigidity. No distention. Skin: Skin warm and dry. Normal skin color. Normal skin turgor. No rash Extremities: No lower extremity edema. No lower extremity edema. No Lacerations. No Rash Neuro: Oriented X 3. No motor deficit. No sensory deficit. Moving all extermities. No slurred speech. Course Course Course Narrative: Patient is likely having angioedema secondary to lisinopril rather than an allergic reaction to whatever medication her friend gave her. Patient is still being treated as an allergic reaction, patient received epinephrine, Solu-Medrol, Pepcid, Benadryl. I discussed with the patient that she should never take lisinopril again Patient has no stridor. Patient's vitals stable. Patient's uvula still remains swollen, the size remains unchanged. Patient is not getting worse, but she did not improve either. However the facial edema especially around the nose and under the eyes improved significantly. I discussed the patient with Dr. Morelos, who requested that we observe the patient for 2 more hours, if the patient remains stable, he will go ahead and admit the patient. Sign out given to Dr. Arias. Physician of observation starting now at 02:31 Critical Care Time Critical Care Time Total Critical Care Time: 65 Discharge Plan Discharge Clinical Impression: Angioedema Patient Disposition: Admitted As Inpatient Prescriptions: No Action bisacodyl [Dulcolax (bisacodyl)] 5 mg tablet,delayed release (DR/EC) 10 mg PO ONCE 1 Days Qty: 2 RF: 0 polyethylene glycol 3350 [Miralax] 17 gram/dose powder 238 g PO ONCE 1 Days Qty: 238 RF: 0 clonidine HCl 0.1 mg Tablet 0.1 mg PO BID PRN (Reason: Sweating) RF: 0 Flovent HFA 220 mcg/actuation Hfa Aerosol Inhaler 1 puff INHALATION BID RF: 0 lisinopril 5 mg Tablet 5 mg PO DAILY RF: 0 albuterol sulfate [ProAir HFA] 90 mcg/actuation Hfa Aerosol Inhaler 2 puff INHALATION 6XD PRN (Reason: Wheezing) RF: 0 pantoprazole 40 mg tablet,delayed release (DR/EC) 40 mg PO DAILY Qty: 90 RF: 2 cyclobenzaprine 10 mg tablet 10 mg PO TID PRN (Reason: muscle spasm) Qty: 10 RF: 0 ketorolac 10 mg tablet 10 mg PO Q8H PRN (Reason: pain) Qty: 10 RF: 0 ketorolac 10 mg tablet 10 mg PO Q8H PRN (Reason: pain) Qty: 10 RF: 0 cyclobenzaprine 10 mg tablet 10 mg PO TID PRN (Reason: muscle spasm) Qty: 10 RF: 0 lidocaine [Lidoderm] 5 % adhesive patch,medicated 1 patch topical DAILY Qty: 15 RF: 0 amoxicillin-pot clavulanate [Augmentin] 875-125 mg tablet 1 tab PO BID Qty: 20 RF: 0 peg-electrolyte soln [TriLyte With Flavor Packets] 420 gram recon soln 240 ml PO Q10M Qty: 4000 RF: 0
[2020-09-13] MEDS: EPINEPHrine 1 MG/ML VIAL 0.3 MG IM (01:47)
[2020-09-13] MEDS: diphenhydrAMINE HCL 50 MG/ML VIAL IVPUSH (01:47)
[2020-09-13] MEDS: methylPREDNISolone Sod Succ 125 MG/2 ML VIAL IVPUSH (01:47)
[2020-09-13] MEDS: Famotidine/PF 20 MG/2 ML VIAL IVPUSH ×2 (01:47→07:29)
[2020-09-13 03:02] VITALS: BP 125/76; PULSE 71; RESP 18; TEMP 36.4; O2SAT 99
--- NOTE | 2020-09-13 04:27 | P.HPHOSP_ITS ---
History of Present Illness Date of Service: 09/13/20 Chief Complaint: SOB 55-year-old female with a past medical history of anxiety, depression, migraine, chronic back pain, hypertension, history of seizure, history of opiate dependence, left bundle branch block presented to the hospital with a chief complaint of shortness of breath. Patient mentions that this evening she came back from work and took her blood pressure medication lisinopril as she has not taken it for almost 2 days; subsequently 4 hours later she felt like her face is flushed, throat tightening, felt short of breath; subsequently came to the ER for further evaluation. Denied any chest pain lightheadedness dizziness palpitations. Denied any rash. Patient mentioned that she looked into the mirror and noted her face is swollen and her tongue is also swollen. Denies any recent travel sick contacts. Denies any fever chills cough. Mentgeoffrey jose that she got her 1st dose of COVID vaccination. Denies any chest pain or palpitations at the time of my entry. At the time of mentor patient reported that her shortness of breath is improving but she still feels discomfort in her throat. Patient is alert awake, mentating well, speaking in full sentences with appropriate affect at the time of my interview. Review of all other systems is negative except mentioned above ER course: Per ER team patient on presentation noted to be tachypneic tachycardic; no stridor noticed, patient's blood stenting is swollen; troponin negative, EKG nonischemic, labs essentially benign except for mild hyperkalemia 5.3. Given concerns for severe allergic reaction / angioedema -patient was given epinephrine, methylprednisone, Benadryl, famotidine; patient not in respiratory distress. Patient placed on supplemental oxygen. Admitted to the hospital for further management. [facility] Medical History (Updated 09/13/20 @ 10:52 by Syed Hardy MD) Anxiety Asthma Chronic back pain Chronic knee pain Depression History of alcohol dependence History of fatty infiltration of liver History of heroin use History of left bundle branch block (LBBB) History of opioid abuse History of panic disorder History of seizure HTN (hypertension) Left against medical advice Migraine Surgical History Hx of colonoscopy Hx of exploratory laparotomy Social History (Updated 07/31/20 @ 14:19 by MITZI Martinez) Household Members: None Housing: House Do you presently have visiting nurse or other home services: No Alcohol intake: never Patient Tobacco Use Status: Never used Tobacco Use of substances other than those prescribed or required for medical reasons: No Substance Use Type: Heroin Currently Displaying Signs/Symptoms of Drug Intoxication Withdrawal: No Have you been hit, kicked, punched, or otherwise hurt by someone within the past year? If so, by whom?: No Do you feel safe in your current relationship?: No Current Relationship Is there a partner from a previous relationship who is making you feel unsafe now?: No Advance Directives: No Advance Directives Information Provided: No Do you have thoughts of harming others: None Do you have a plan to hurt others: No Plan Recently lost weight without trying: No Eating poorly because of decreased appetite: No Nutrition Risks: No Nutritional Risk service: No Current occupational status: unemployed Meds Allergies Allergy/AdvReac Type Severity Reaction Status Date / Time lisinopril Allergy Severe Angioedema Verified 09/13/20 01:39 hydroxyzine [HYDROXYZINE] AdvReac Intermediate reports Verified 07/31/20 14:19 redness and swelling Active Medications: Current Medications Generic Name Dose Route Start Last Admin Trade Name Freq PRN Reason Stop Dose Admin Acetaminophen 650 mg 09/13/20 04:20 Acetaminophen 325 Mg Tablet PO Q6H PRN Pain, Mild (Pain Scale 1-3) Albuterol/Ipratropium 3 ml 09/13/20 04:18 Albuterol/Iprat 2.5/0.5mg 3 Ml Ampul.Neb INHALE RQ4H PRN Shortness of Breath/Wheezing Diphenhydramine HCl 25 mg 09/13/20 04:18 Diphenhydramine Hcl 50 Mg/Ml Vial IVPUSH Q6H PRN Itching Famotidine 20 mg 09/13/20 09:00 Famotidine/Pf 20 Mg/2 Ml Vial IVPUSH BID JUAN Heparin Sodium (Porcine) 5,000 unit 09/13/20 04:30 Heparin Sodium,Porcine 5,000 Unit/Ml Vial SUBCUT Q8H JUAN Dextrose/Sodium Chloride 1,000 mls @ 75 mls/hr 09/13/20 04:30 D51/2ns IVCONT .[id number] JUAN Magnesium Hydroxide 30 ml 09/13/20 04:20 Milk Of Magnesia 30 Ml Oral.Susp PO DAILY PRN Constipation Methylprednisolone Sodium Succinate 40 mg 09/13/20 04:30 Methylprednisolone Sod Succ 40 Mg/Ml Vial IVPUSH Q8H [facility] Morphine Sulfate 1 mg 09/13/20 04:20 Morphine Sulfate 4 Mg/Ml Cartridge IVPUSH Q4H PRN Shortness of Breath Pantoprazole Sodium 40 mg 09/13/20 06:30 Pantoprazole Sodium 40 Mg/10 Ml Vial IVPUSH DAILY@0630 [facility] Sodium Chloride 3 ml 09/13/20 08:00 0.9 % Sodium Chloride Flush 3 Ml Syringe IVFLUSH QSHIFT [facility] Home Medications Medication Instructions Recorded Confirmed Last Taken Type albuterol sulfate [ProAir HFA] 2 puff INHALATION 6XD PRN 04/26/20 09/13/20 05/02/20 History lisinopril 5 mg PO DAILY 04/26/20 09/13/20 Unknown History acamprosate 333 mg PO TID 09/13/20 09/13/20 Unknown History buprenorphine-naloxone [Suboxone] 1 strip SUBLINGUAL BID 09/13/20 09/13/20 Unknown History fluticasone propionate [Flovent 2 puff PO BID 09/13/20 09/13/20 Unknown History HFA] Physical Exam Vital Signs and Narrative: Vital Signs: Last Vital Signs Temp 97.6 F 09/13/20 03:02 Pulse 71 09/13/20 03:02 Resp 18 09/13/20 03:02 BP 125/76 09/13/20 03:02 Pulse Ox 99 09/13/20 03:02 Body Mass Index 33.3 Gen: Appears be in no acute distress HEENT: NCAT, Moist mucosa. Tongue is slightly swollen-improving as per the patient; patient is also slightly flushed Pulmonary: Vesicular breath sounds, fair air entry; no stridor noticed. CVS: Normal S1-S2 Abdomen: BS+, Soft, Nontender Extremities: Warm well perfused Neuro: Alert and awake.; grossly nonfocal Integumentary: No obvious/noticed. Results Labs CBC and Chem 7: 09/13/20 04:55 09/13/20 04:55 Assessment and Plan (1) Angioedema: Qualifiers: Encounter type: initial encounter Qualified Code(s): T78.3XXA - Angioneurotic edema, initial encounter Status: Acute 55-year-old female with a past medical history of hypertension on jarod nopril, chronic back pain, anxiety, depression, migraine headaches presented to the hospital with a chief complaint of shortness of breath, throat tightness, facial flushing, tongue swelling after she took lisinopril fevers prior. Noted to have angioedema. Admitted for further management. Angioedema: Currently patient not in respiratory distress. Patient reported that her shortness of breath, facial swelling, tongue swelling improving. Patient continued to have mild throat discomfort. Patient received epinephrine, Solu-Medrol, Pepcid, Benadryl in the ER. Will continue the patient on Solu-Medrol 40 mg IV t.i.d., Pepcid 20 mg IV b.i.d., pantoprazole 40 mg daily, Benadryl p.r.n. Continuous pulse oximetry NPO Gentle fluids Speech and swallow eval Discontinued home lisinopril Mild hyperkalemia: Will repeat potassium levels in a.m. after hydration. History of hypertension: Will continue to monitor. Currently 125/76. If elevated will consider amlodipine. For all other chronic conditions, home medications will be continued pending med rec. DVT prophylaxis: Subcu heparin Code status: Full code Things to follow by day team at 7:00 a.m: Potassium levels in the a.m. Speech and swallow eval Monitor blood pressure and pulse oximetry Quality Stroke Does the patient have a stroke diagnosis?: No VTE Prior VTE?: No VTE Risk Level:: Medical - moderate - high VTE Device Contraindication: N/A - Device Ordered VTE Drug Contraindication: N/A - Med Ordered
[2020-09-13 05:01] LABS: Basophils Percent Auto 0.4 % (0-2); Eosinophils Percent Auto 0.4 % (0-4); Hematocrit 34.7 % (37-47); Hemoglobin 11.3 g/dl (12.0-16.0); Imm Gran Abs Auto 0.02 X10*3/uL (0.00-0.03); Imm Gran Pct Auto 0.3 % (0.0-0.4); Lymphocytes Absolute Auto 0.4 X10*3/uL (1.2-4.9); Lymphocytes Percent Auto 5.4 % (20-40); MANUAL DIFF FLAG SCAN; Mean Corpuscular HGB Conc 32.6 g/dl (31.0-35.0); Mean Corpuscular Hemoglobin 30.8 pg (27.0-33.0); Mean Corpuscular Volume 94.6 fL (80-98); Mean Platelet Volume 8.8 fL (9.4-12.3); Monocytes Absolute Auto 0.1 X10*3/uL (0.1-1.2); Monocytes Percent Auto 1.9 % (2-11); Neutrophils Absolute Auto 6.7 X10*3/uL (2.0-8.3); Neutrophils Percent Auto 91.6 % (45-73); Platelet Count 269 X10*3/uL (160-400); Red Blood Count 3.67 X10*6/uL (4.20-5.50); Red Cell Distribution Width 12.8 % (11.0-16.0); SCAN SMEAR FLAG 1; White Blood Count 7.3 X10*3/uL (4.8-10.8)
[2020-09-13] MEDS: Heparin Sodium,Porcine 5,000 UNIT/ML VIAL 5000 UNIT SUBCUT (05:09)
[2020-09-13] MEDS: Dextrose 5 % and 0.45 % NaCl 1,000 ML 75 ML IVCONT (05:10)
[2020-09-13] MEDS: Pantoprazole Sodium 40 MG/10 ML VIAL IVPUSH (05:10)
[2020-09-13 05:18] LABS: SLIDE REVIEW VERIFIED
[2020-09-13 05:25] LABS: Alanine Aminotransferase 27 U/L (0-31); Alkaline Phosphatase 130 U/L (39-117); Anion Gap 11 (12-20); Aspartate Amino Transferase 28 U/L (5-31); Bilirubin Direct < 0.2 mg/dL (0.0-0.5); Bilirubin Total 0.3 mg/dL (0.0-1.0); Blood Urea Nitrogen 21 mg/dL (9-16); Calcium 9.3 mg/dL (8.4-10.2); Carbon Dioxide 27 mmol/L (22-29); Chloride 106 mmol/L (96-108); Creatinine Clr Calc Pharmacy 85.5; Estimated Glomerular Filt Rate > 60; Glucose Random 115 mg/dL (60-115); Magnesium 2.1 mg/dL (1.6-2.6); Potassium 4.2 mmol/L (3.3-5.1); Sodium 140 mmol/L (135-145); Total Protein 6.9 g/dL (6.5-8.0)
[2020-09-13 05:48] LABS: COVID-19 Test Negative (Negative); IDNOW Serial# 9DD0AD1C
[2020-09-13 06:37] VITALS: BP 135/79; PULSE 69; RESP 18; TEMP 36.4; O2SAT 100
[2020-09-13] MEDS: Acetaminophen 325 MG TABLET 650 MG PO (07:29)
[2020-09-13] MEDS: 0.9 % Sodium Chloride Flush 3 ML SYRINGE IVFLUSH (07:29)
[2020-09-13 07:52] VITALS: BP 116/70; PULSE 65; RESP 18; TEMP 36.7; O2SAT 100
--- NOTE | 2020-09-13 08:13 | PHA.MEDREC ---
Pharmacy Consult ? Medication Reconciliation Pharmacy has completed the medication reconciliation for an overnight admissions. Additional medications were added for provider to review. Meme TinsleyD
[2020-09-13] MEDS: Buprenorphine/Naloxone 8/2 mg FILM 1 FILM SUBLINGUAL (09:12)
[2020-09-13] MEDS: methylPREDNISolone Sod Succ 40 MG/ML VIAL IVPUSH (09:12)
--- NOTE | 2020-09-13 09:13 | MHC.CM.PN ---
pt lives c her son in her apt. she reports that she is independent in her care. does not use any AD c ambulation and has no svcs in the home. she says her son can help her if she needs it, this will include a ride home at dc. pt denies the need for vna at dc. dc plan is home no svcs. cm to cont. to follow.
--- NOTE | 2020-09-13 10:40 | PM.DS ---
DS: Providers Provider Date of Service: 09/13/20 Date of admission: 09/13/20 04:20 Primary care physician: Antonieta Kennedy MD DS: Diagnosis Discharge Diagnosis (1) Angioedema: Status: Acute (2) Left against medical advice: Status: Acute (3) Hyperkalemia: Status: Acute DS: Medications Discharge Medications Home Medications: Home Medications Medication Instructions Recorded Confirmed albuterol sulfate [ProAir HFA] 2 puff INHALATION 6XD PRN 04/26/20 09/13/20 lisinopril 5 mg PO DAILY 04/26/20 09/13/20 acamprosate 333 mg PO TID 09/13/20 09/13/20 buprenorphine-naloxone [Suboxone] 1 strip SUBLINGUAL BID 09/13/20 09/13/20 fluticasone propionate [Flovent 2 puff PO BID 09/13/20 09/13/20 HFA] DS: Summary Hospital Course Hospital Course: from admission history and physical by hospitalist Karri Morelos, 09/13/20: 55-year-old female with a past medical history of anxiety, depression, migraine, chronic back pain, hypertension, history of seizure, history of opiate dependence, left bundle branch block presented to the hospital with a chief complaint of shortness of breath. Patient mentions that this evening she came back from work and took her blood pressure medication lisinopril as she has not taken it for almost 2 days; subsequently 4 hours later she felt like her face is flushed, throat tightening, felt short of breath; subsequently came to the ER for further evaluation. Denied any chest pain lightheadedness dizziness palpitations. Denied any rash. Patient mentioned that she looked into the mirror and noted her face is swollen and her tongue is also swollen. Denies any recent travel sick contacts. Denies any fever chills cough. Mentioned that she got her 1st dose of COVID vaccination. Denies any chest pain or palpitations at the time of my entry. At the time of mentor patient reported that her shortness of breath is improving but she still feels discomfort in her throat. Patient is alert awake, mentating well, speaking in full sentences with appropriate affect at the time of my interview. Review of all other systems is negative except mentioned above ER course: Per ER team patient on presentation noted to be tachypneic tachycardic; no stridor noticed, patient's blood stenting is swollen; troponin negative, EKG nonischemic, labs essentially benign except for mild hyperkalemia 5.3. Given concerns for severe allergic reaction / angioedema -patient was given epinephrine, methylprednisone, Benadryl, famotidine; patient not in respiratory distress. Patient placed on supplemental oxygen. Admitted to the hospital for further management. The patient was admitted to the medical/surgical floor. Hyperkalemia resolved. Facial, tongue, and lip swelling resolved quickly and she was in no respiratory distress when I saw her. Quite suddenly, soon afterwards, she decieded to sign out AMA despite counseling on the risks of disability and . I sent a prescription for prednisone taper [40 mg daily x2d, then 20 mg daily x2d, then 10 mg daily x2d] as a harm reduction measure and counseled her to avoid lisionpril and all REIC inhibitors; if antihypertensive is needed in the future, she can take amlodipine. I urged her to return to the hospital as soon as possible if she changes her mind. Time Spent with Patient Time attestation: Total time spent providing and/or coordinating discharge services: Discharge coordination time: Less than 30 minutes Quality: Stroke Does the patient have a stroke diagnosis?: No Physical Exam Vital Signs: Vital Signs: Last Vital Signs Temp 98.1 F 09/13/20 07:52 Pulse 65 09/13/20 07:52 Resp 18 09/13/20 07:52 BP 116/70 09/13/20 07:52 Pulse Ox 100 09/13/20 07:52 Body Mass Index 33.3 Gen: in no acute distress HEENT: sclera anicteric, moist mucus membranes Neck: supple Lungs: clear to auscultation bilaterally Heart: regular rate and rhythm, no murmurs Abd: soft, non-tender, non-distended Ext: no edema Skin: warm/well-perfused Neuro: alert and oriented x3, no focal findings Psych: appropriate affect DS: Data Data Completed and Pending Completed studies during hospitalization [Text1]: Laboratory Results WBC 7.3 X10*3/uL (4.8-10.8) 09/13/20 04:55 RBC 3.67 X10*6/uL (4.20-5.50) L 09/13/20 04:55 Hgb 11.3 g/dl (12.0-16.0) L 09/13/20 04:55 Hct 34.7 % (37-47) L 09/13/20 04:55 MCV 94.6 fL (80-98) 09/13/20 04:55 MCH 30.8 pg (27.0-33.0) 09/13/20 04:55 MCHC 32.6 g/dl (31.0-35.0) 09/13/20 04:55 RDW 12.8 % (11.0-16.0) 09/13/20 04:55 Plt Count 269 X10*3/uL (160-400) 09/13/20 04:55 MPV 8.8 fL (9.4-12.3) L 09/13/20 04:55 Immature Gran % (Auto) 0.3 % (0.0-0.4) 09/13/20 04:55 Neut % (Auto) 91.6 % (45-73) H 09/13/20 04:55 Lymph % (Auto) 5.4 % (20-40) L 09/13/20 04:55 Walton % (Auto) 1.9 % (2-11) L 09/13/20 04:55 Eos % (Auto) 0.4 % (0-4) 09/13/20 04:55 Baso % (Auto) 0.4 % (0-2) 09/13/20 04:55 Lymph # (Auto) 0.4 X10*3/uL (1.2-4.9) L 09/13/20 04:55 Walton # (Auto) 0.1 X10*3/uL (0.1-1.2) 09/13/20 04:55 Eos # (Auto) 0.0 X10*3/uL (0.0-0.4) 09/13/20 04:55 Baso # (Auto) 0.0 X10*3/uL (0.0-0.2) 09/13/20 04:55 Abs Immat Gran (auto) 0.02 X10*3/uL (0.00-0.03) 09/13/20 04:55 Absolute Neuts (auto) 6.7 X10*3/uL (2.0-8.3) 09/13/20 04:55 Absolute Nucleated RBC 0.000 X10*3/uL (0.0-0.012) 09/13/20 04:55 Nucleated RBC % (auto) 0.0 /100WBC (0.0-0.2) 09/13/20 04:55 Smear Tech's Comments VERIFIED 09/13/20 04:55 Sodium 140 mmol/L (135-145) 09/13/20 04:55 Potassium 4.2 mmol/L (3.3-5.1) 09/13/20 04:55 Chloride 106 mmol/L (96-108) 09/13/20 04:55 Carbon Dioxide 27 mmol/L (22-29) 09/13/20 04:55 Anion Gap 11 (12-20) L 09/13/20 04:55 BUN 21 mg/dL (9-16) H 09/13/20 04:55 Creatinine 0.75 mg/dL (0.5-1.4) 09/13/20 04:55 Estim Creat Clear Calc 85.5 09/13/20 04:55 Estimated GFR > 60 09/13/20 04:55 Random Glucose 115 mg/dL (60-115) 09/13/20 04:55 Calcium 9.3 mg/dL (8.4-10.2) 09/13/20 04:55 Magnesium 2.0 mg/dL (1.6-2.6) 09/13/20 08:28 Total Bilirubin 0.3 mg/dL (0.0-1.0) 09/13/20 04:55 Direct Bilirubin < 0.2 mg/dL (0.0-0.5) 09/13/20 04:55 AST 28 U/L (5-31) 09/13/20 04:55 ALT 27 U/L (0-31) 09/13/20 04:55 Alkaline Phosphatase 130 U/L (39-117) H 09/13/20 04:55 Total Protein 6.9 g/dL (6.5-8.0) 09/13/20 04:55 Albumin 4.0 g/dL (3.5-5.0) 09/13/20 04:55 COVID-19 (ISHMAEL) Negative (Negative) 09/13/20 05:26 COVID-19 Clin Com See Note 09/13/20 05:26 Impressions Chest X-Ray 09/13/20 05:23 IMPRESSION: No acute pulmonary findings. Discharge Plan Discharge Patient Disposition: Left Against Medical Advice Discharge Diagnosis: angioedema Referrals: Antonieta Kennedy MD [Physician] - 1 Week Discharge Medications: New prednisone 20 mg tablet See Rx Instructions .ROUTE .COMPLEX Qty: 7 RF: 0 Continued albuterol sulfate [ProAir HFA] 90 mcg/actuation Hfa Aerosol Inhaler 2 puff INHALATION 6XD PRN (Reason: Wheezing) RF: 0 Flovent HFA 220 mcg/actuation HFA aerosol inhaler 2 puff PO BID RF: 0 acamprosate 333 mg tablet,delayed release (DR/EC) 333 mg PO TID RF: 0 buprenorphine-naloxone [Suboxone] 8-2 mg film 1 strip sublingual BID RF: 0 Discontinued lisinopril 5 mg Tablet 5 mg PO DAILY RF: 0 Discharge Orders: Discharge Order (Routine); Ordered 09/13/20 Ordered By: Syed Hardy Diet: advance to usual diet Activity on Discharge: returnASAP Care Plan Goals: observation/treatment of angioedema Health Concerns: angioedema suspected due to lisinopril Plan of Treatment: avoid lisinopril and all ERIC inhibitors you signed out against medical advice despite risk of disability and ; if you change your mind, please return to hospital KATE take prednisone 40 mg daily x 2 days, then 20 mg daily x 2 days, then 10 mg daily x 2 days see your facilities maintenance assistant KATE Assessment: SIGNED OUT AGAINST MEDICAL ADVICE Patient Instructions: Angioedema (ED), Against Medical Advice (DC) Discharge Date/Time: 09/13/20 10:30
--- NOTE | 2020-09-13 10:49 | PC.NURSE ---
This RN called to bedside by RECORDS ANALYST due to patient stating that she wants to leave the hospital. This RN spoke to patient at length stating that the patient should stay per doctor's recommendation and that we are continuing to give her steroids to reduce the swelling in her neck. Patient still adamant to leave, threatening to pull out her IV. Hospitalist called to the bedside who was unsuccessful at convincing the patient to stay as well. IV removed, front desk monitor removed, AMA signed, patient discharged without assistance.
--- NOTE | 2020-09-13 10:53 | PC.NURSE ---
Called patient to notify her that hospitalist filled prednisone at patient's preferred pharmacy.
--- NOTE | 2020-09-13 11:30 | MHC.SLORD ---
Speech Language Pathology Order Status: Order for bedside dysphagia evaluation received. Patient had already left hospital.
== END 2020-09-13 10:30 | disposition left against medical advice (07) | DRG 811 ==
LOC: HO.ED 03:20 → HO.EDOVER 05:57 → HO.S3 05:58
PROVIDERS: Emergency Medicine; Admitting Provider Hospitalist; Emergency Provider Emergency Medicine Emergency Medical Services; Visit Provider Family Medicine
DX: T78.3XXA Angioneurotic edema, initial encounter (principal); E87.5 Hyperkalemia; F32.9 Major depressive disorder, single episode, unspecified; F41.9 Anxiety disorder, unspecified; G89.29 Other chronic pain; G40.909 Epilepsy, unspecified, not intractable, without status epilepticus; Z20.822 Contact with and (suspected) exposure to COVID-19; Z79.51 Long term (current) use of inhaled steroids; Z79.899 Other long term (current) drug therapy
CPT/HCPCS: 36415; 71045; 80048; 80076; 83735; 85025; 87635; 99285; J0171; J1200; J2920; J2930

== ENCOUNTER 2020-10-27 10:16 | Emergency (ER) | payer MEDICAID, SELFPAY ==
[2020-10-27 10:26] VITALS: BP 134/77; BP 148/94; PULSE 64; PULSE 71; RESP 16; TEMP 36.8; O2SAT 97; BMI 30.9
--- NOTE | 2020-10-27 10:32 | ECG_ITS ---
Test Reason : DIZZINESS Blood Pressure : / mmHG Vent. Rate : 057 BPM Atrial Rate : 057 BPM P-R Int : 148 ms QRS Dur : 138 ms QT Int : 490 ms P-R-T Axes : 043 -40 055 degrees QTc Int : 476 ms Sinus bradycardia Left axis deviation Left bundle branch block Abnormal ECG When compared with ECG of 21-NOV-2019 18:45, No significant changes seen Referred By: Generic ED Physician Electronically Signed By:Marcelo Wahl
--- NOTE | 2020-10-27 10:42 | ED_ITS ---
HPI - Dizziness General Chief Complaint: Dizziness Stated Complaint: doesn't feel well after morning meds Time Seen by Provider: 10/27/20 10:41 Source: patient and EMS Mode of arrival: EMS Limitations: no limitations History of Present Illness HPI Narrative: 55 y/o female with history of heroin use, osteoarthritis, angioedema, esophagitis, gastroparesis, constipation who presents to the ER from home via EMS after she developed body aches and dizziness after taking her morning medications. She doesn't know the names of her meds but denies any new medications. She reports nausea and abdominal cramping along with diarrhea this morning. She last used heroin yesterday and feels like she is going through withdrawal. She had chest pain this morning for EMS but she was given ASA and Nitro and she no longer has any chest pain. She denies SOB, fever, chills, vomiting. MD elicited complaint: dizziness Onset (ago): hour(s) Timing: gradual onset Severity: moderate Description: lightheadedness Context: other (opiate withdrawal. ) History of similar symptoms: Yes Exacerbating factors: movement/ambulation Relieving factors: rest, lying down and keeping eyes closed Associated symptoms: nausea Related Data Home Medications Medication Instructions Recorded Confirmed albuterol sulfate 90 mcg/actuation 2 puff INHALATION 6XD PRN 04/26/20 09/13/20 aerosol inhaler (ProAir HFA) lisinopril 5 mg tablet 5 mg PO DAILY 04/26/20 09/13/20 acamprosate 333 mg tablet,delayed 333 mg PO TID 09/13/20 09/13/20 release buprenorphine 8 mg-naloxone 2 mg 1 strip SUBLINGUAL BID 09/13/20 09/13/20 sublingual film (Suboxone) fluticasone propionate 220 2 puff PO BID 09/13/20 09/13/20 mcg/actuation HFA aerosol inhaler (Flovent HFA) Previous Rx's Medication Instructions Recorded dicyclomine 20 mg tablet 20 mg PO TID #14 tab 10/27/20 ondansetron HCl 4 mg tablet 4 mg PO Q8H PRN #7 tab 10/27/20 (Zofran) Allergies Allergy/AdvReac Type Severity Reaction Status Date / Time lisinopril Allergy Severe Angioedema Verified 09/13/20 01:39 hydroxyzine [HYDROXYZINE] AdvReac Intermediate reports Verified 07/31/20 14:19 redness and swelling Review of Systems Constitutional: Constitutional: Denies chills, Denies fever(s), Reports headache(s) and Reports malaise Eyes: Eyes: Reports no additional eye complaints ENT: Reports Normal hearing present, Denies vertigo, Reports dizziness, Reports headache(s) and Denies sore throat Cardiovascular: Cardiovascular: Denies chest pain, Denies chest pain at rest, Denies chest pain with activity, Denies syncope and Denies dyspnea Respiratory: Respiratory: Denies cough and Denies dyspnea Gastrointestinal: Gastrointestinal: Reports abdominal pain, Reports bloating, Reports loose stools, Reports nausea and Denies vomiting Genitourinary: Genitourinary: Denies dysuria Musculoskeletal: Musculoskeletal: Reports back pain, Reports myalgias and Denies arthralgias Integumentary/Breasts: Skin/Breast: Denies rash Neurologic: Reports Normal hearing present, Denies vertigo, Reports dizziness, Denies syncope, Reports headache(s) and Denies memory loss Psychiatric: Psychiatric: Denies memory loss Hematologic/Lymphatic: Hematologic/Lymphatic: Denies easy bleeding and Denies easy bruising PMFSH Past Medical History Attestation statement: The following information was validated with the patient. Medical History Angioedema Anxiety Asthma Chronic back pain Chronic knee pain Depression History of alcohol dependence History of fatty infiltration of liver History of heroin use History of left bundle branch block (LBBB) History of opioid abuse History of panic disorder History of seizure HTN (hypertension) Left against medical advice Migraine Surgical History Hx of colonoscopy Hx of exploratory laparotomy Social History Social History (Updated 07/31/20 @ 14:19 by MITZI Martinez) Household Members: None Housing: House Do you presently have visiting nurse or other home services: No Alcohol intake: never Patient Tobacco Use Status: Never used Tobacco Use of substances other than those prescribed or required for medical reasons: Yes Substance Use Type: Heroin, Opiates and Painkillers Substance Use Frequency: Chronic Longstanding Last Used Substance: Days (ago) Any prior treatment program specific to substance use: No Advance Directives: No Advance Directives Information Provided: No Patient : No service: No Current occupational status: unemployed Physical Exam Vital Signs: Vital Signs: Last Vital Signs Temp 98.3 F 10/27/20 10:26 Pulse 64 10/27/20 11:01 Resp 18 10/27/20 10:43 BP 144/89 H 10/27/20 11:01 Pulse Ox 98 10/27/20 10:43 Body Mass Index 30.9 Appearance: Alert middle aged woman laying her side on the stretcher, holding her stomach. Eyes: Pupils equal, round and reactive to light. ENT: Pharynx normal. Neck: Normal inspection. Neck supple. CVS: Normal heart rate and rhythm. Pulses normal. Respiratory: No respiratory distress. Breath sounds normal. Abdomen: Soft, non-tender, no rebound or guarding. +BS x4 Skin: Skin warm and dry. Normal skin color. Normal skin turgor. No rashes. Extremities: No lower extremity edema. No track garzon appreciated. Neuro: Oriented X 3. No motor deficit. No sensory deficit. Neuro: Cranial nerves: Yes Normal hearing present Course Course Course Narrative: 55 y/o female presenting to the ER with dizziness, nausea, abdominal cramping and loose stool in the setting of heroin withdrawal. She wants to go to detox. IVF, Zofran and bentyl ordered for now as well as EKG, labs and orthostatic VS. Dizziness is improved, pain complaint is nausea. Will reassess. Reevaluation(s) Reevaluation #1: Patient feeling much better after meds and IVF. Orthostatic VS are negative. Troponin negative. She is again asking to speak to someone about detox. Reevaluation #2: Sudarshan met with the patient and provided resources and informati on to her for a methadone clinic she plans to go to Thursday morning. She would like to be discharged home. She is medically cleared and feeling better. Stable for d/c home. Consultations Consultation #1: CARE team MDM - Dizziness Medical Records Attestation: I reviewed the patient's medical records. Lab Data Attestation: I reviewed the patient's lab results. Result diagrams: 10/27/20 10:50 10/27/20 10:50 Labs: Lab Results 10/27/20 10/27/20 10/27/20 Range/Units 10:50 10:50 10:50 WBC 9.6 (4.8-10.8) X10*3/uL RBC 4.09 L (4.20-5.50) X10*6/uL Hgb 12.4 (12.0-16.0) g/dl Hct 37.5 (37-47) % MCV 91.7 (80-98) fL MCH 30.3 (27.0-33.0) pg MCHC 33.1 (31.0-35.0) g/dl RDW 12.1 (11.0-16.0) % Plt Count 280 (160-400) X10*3/uL MPV 9.2 L (9.4-12.3) fL Immature Gran % (Auto) 0.3 (0.0-0.4) % Neut % (Auto) 70.6 (45-73) % Lymph % (Auto) 17.2 L (20-40) % Lee % (Auto) 6.1 (2-11) % Eos % (Auto) 5.4 H (0-4) % Baso % (Auto) 0.4 (0-2) % Lymph # (Auto) 1.7 (1.2-4.9) X10*3/uL Lee # (Auto) 0.6 (0.1-1.2) X10*3/uL Eos # (Auto) 0.5 H (0.0-0.4) X10*3/uL Baso # (Auto) 0.0 (0.0-0.2) X10*3/uL Abs Immat Gran (auto) 0.03 (0.00-0.03) X10*3/uL Absolute Neuts (auto) 6.8 (2.0-8.3) X10*3/uL Absolute Nucleated RBC 0.000 (0.0-0.012) X10*3/uL Nucleated RBC % (auto) 0.0 (0.0-0.2) /100WBC Sodium 138 (135-145) mmol/L Potassium 4.1 (3.3-5.1) mmol/L Chloride 106 (96-108) mmol/L Carbon Dioxide 22 (22-29) mmol/L Anion Gap 14 (12-20) BUN 17 H (9-16) mg/dL Creatinine 0.68 (0.5-1.4) mg/dL Estim Creat Clear Calc 94.3 Estimated GFR > 60 Random Glucose 118 H (60-115) mg/dL Calcium 9.3 (8.4-10.2) mg/dL Troponin I High Sens < 3.5 (<3.5-17.0) ng/L Urine Color Urine Appearance Urine pH (5.0-8.0) Ur Specific Pollok (1.005-1.025) Urine Protein (NEG-TRACE) MG/DL Urine Glucose (UA) (NEG) MG/DL Urine Ketones (NEG) MG/DL Urine Blood (NEG) Urine Nitrite (NEG) Ur Leukocyte Esterase (NEG) Urine Opiates Screen (Not Detect) Ur Barbiturates Screen (Not Detect) Ur Phencyclidine Scrn (Not Detect) Ur Amphetamines Screen (Not Detect) U Benzodiazepines Scrn (Not Detect) Urine Cocaine Screen (Not Detect) U Marijuana (THC) Screen (Not Detect) Ethyl Alcohol mg/dL 10/27/20 10/27/20 10/27/20 Range/Units 10:50 10:52 13:35 WBC (4.8-10.8) X10*3/uL RBC (4.20-5.50) X10*6/uL Hgb (12.0-16.0) g/dl Hct (37-47) % MCV (80-98) fL MCH (27.0-33.0) pg MCHC (31.0-35.0) g/dl RDW (11.0-16.0) % Plt Count (160-400) X10*3/uL MPV (9.4-12.3) fL Immature Gran % (Auto) (0.0-0.4) % Neut % (Auto) (45-73) % Lymph % (Auto) (20-40) % Lee % (Auto) (2-11) % Eos % (Auto) (0-4) % Baso % (Auto) (0-2) % Lymph # (Auto) (1.2-4.9) X10*3/uL Lee # (Auto) (0.1-1.2) X10*3/uL Eos # (Auto) (0.0-0.4) X10*3/uL Baso # (Auto) (0.0-0.2) X10*3/uL Abs Immat Gran (auto) (0.00-0.03) X10*3/uL Absolute Neuts (auto) (2.0-8.3) X10*3/uL Absolute Nucleated RBC (0.0-0.012) X10*3/uL Nucleated RBC % (auto) (0.0-0.2) /100WBC Sodium (135-145) mmol/L Potassium (3.3-5.1) mmol/L Chloride (96-108) mmol/L Carbon Dioxide (22-29) mmol/L Anion Gap (12-20) BUN (9-16) mg/dL Creatinine (0.5-1.4) mg/dL Estim Creat Clear Calc Estimated GFR Random Glucose (60-115) mg/dL Calcium (8.4-10.2) mg/dL Troponin I High Sens (<3.5-17.0) ng/L Urine Color YELLOW Urine Appearance CLEAR Urine pH 6.0 (5.0-8.0) Ur Specific Pollok 1.020 (1.005-1.025) Urine Protein NEG (NEG-TRACE) MG/DL Urine Glucose (UA) NEG (NEG) MG/DL Urine Ketones NEG (NEG) MG/DL Urine Blood NEG (NEG) Urine Nitrite NEG (NEG) Ur Leukocyte Esterase NEG (NEG) Urine Opiates Screen POSITIVE H (Not Detect) Ur Barbiturates Screen Not Detected (Not Detect) Ur Phencyclidine Scrn Not Detected (Not Detect) Ur Amphetamines Screen Not Detected (Not Detect) U Benzodiazepines Scrn Not Detected (Not Detect) Urine Cocaine Screen Not Detected (Not Detect) U Marijuana (THC) Screen Not Detected (Not Detect) Ethyl Alcohol < 10 mg/dL ECG Data Attestation: I personally reviewed and interpreted this ECG as follows: ECG interpretation date: 10/27/20 ECG interpretation time: 12:00 Prior ECG tracings: available for review Interpretation: sinus bradycardia, HR 57 bpm, LBBB (old), no ST segment elevations or depressions. Discharge Plan Discharge Clinical Impression: Opiate withdrawal Patient Disposition: Home, Self-Care Instructions: Opioid Withdrawal (ED), Opioid Use Disorder (ED) Additional Instructions: Your workup today was unremarkable. Recommend detox. Take the prescribed medications as needed for your symptoms. Rest and stay hydrated. Follow up with the Methadone clinic on Thursday. DO NOT USE HEROIN Prescriptions: New ondansetron HCl [Zofran] 4 mg tablet 4 mg PO Q8H PRN (Reason: nausea and vomiting) Qty: 7 RF: 0 dicyclomine 20 mg tablet 20 mg PO TID Qty: 14 RF: 0 No Action lisinopril 5 mg Tablet 5 mg PO DAILY RF: 0 albuterol sulfate [ProAir HFA] 90 mcg/actuation Hfa Aerosol Inhaler 2 puff INHALATION 6XD PRN (Reason: Wheezing) RF: 0 Flovent HFA 220 mcg/actuation HFA aerosol inhaler 2 puff PO BID RF: 0 acamprosate 333 mg tablet,delayed release (DR/EC) 333 mg PO TID RF: 0 buprenorphine-naloxone [Suboxone] 8-2 mg film 1 strip sublingual BID RF: 0 Interventions: ED Discharge Assessment Last Done: 10/27/20 15:51 Discharge Date/Time: 10/27/20 15:52
[2020-10-27 10:43] VITALS: BP 130/78; PULSE 56; RESP 18; O2SAT 98
[2020-10-27 10:59] VITALS: BP 135/85; PULSE 59
[2020-10-27 11:00] VITALS: BP 139/87; PULSE 59
[2020-10-27 11:01] VITALS: BP 144/89; PULSE 64
[2020-10-27 11:04] LABS: MANUAL DIFF FLAG NO
[2020-10-27 11:06] LABS: Basophils Percent Auto 0.4 % (0-2); Eosinophils Absolute Auto 0.5 X10*3/uL (0.0-0.4); Eosinophils Percent Auto 5.4 % (0-4); Hematocrit 37.5 % (37-47); Hemoglobin 12.4 g/dl (12.0-16.0); Imm Gran Abs Auto 0.03 X10*3/uL (0.00-0.03); Imm Gran Pct Auto 0.3 % (0.0-0.4); Lymphocytes Absolute Auto 1.7 X10*3/uL (1.2-4.9); Lymphocytes Percent Auto 17.2 % (20-40); Mean Corpuscular HGB Conc 33.1 g/dl (31.0-35.0); Mean Corpuscular Hemoglobin 30.3 pg (27.0-33.0); Mean Corpuscular Volume 91.7 fL (80-98); Mean Platelet Volume 9.2 fL (9.4-12.3); Monocytes Absolute Auto 0.6 X10*3/uL (0.1-1.2); Monocytes Percent Auto 6.1 % (2-11); Neutrophils Absolute Auto 6.8 X10*3/uL (2.0-8.3); Neutrophils Percent Auto 70.6 % (45-73); Platelet Count 280 X10*3/uL (160-400); Red Blood Count 4.09 X10*6/uL (4.20-5.50); Red Cell Distribution Width 12.1 % (11.0-16.0); White Blood Count 9.6 X10*3/uL (4.8-10.8)
[2020-10-27 11:08] LABS: Glucose Urine UA NEG (NEG); Leukocyte Esterase Urine NEG (NEG); Nitrite Urine NEG (NEG); Urine Blood NEG (NEG); Urine Ketones NEG (NEG); Urine Protein NEG (NEG-TRACE)
[2020-10-27 11:09] LABS: Appearance Urine CLEAR; Color Urine YELLOW
[2020-10-27] MEDS: 0.9 % Sodium Chloride 1,000 ML 999 ML IVCONT (11:21)
[2020-10-27] MEDS: Dicyclomine HCl 10 MG CAPSULE PO (11:21)
[2020-10-27 11:29] LABS: Anion Gap 14 (12-20); Blood Urea Nitrogen 17 mg/dL (9-16); Calcium 9.3 mg/dL (8.4-10.2); Carbon Dioxide 22 mmol/L (22-29); Chloride 106 mmol/L (96-108); Creatinine Clr Calc Pharmacy 94.3; Estimated Glomerular Filt Rate > 60; Glucose Random 118 mg/dL (60-115); Potassium 4.1 mmol/L (3.3-5.1); Sodium 138 mmol/L (135-145)
[2020-10-27 11:31] LABS: Amphetamine Screen Urine Not Detected (Not Detect); Barbiturates, Urine Not Detected (Not Detect); Benzodiazepines Screen Urine Not Detected (Not Detect); Cannabinoid Screen Urine Not Detected (Not Detect); Cocaine Screen Urine Not Detected (Not Detect); Opiate Screen Urine POSITIVE (Not Detect); Phencyclidine Screen Urine Not Detected (Not Detect)
[2020-10-27 11:33] LABS: Troponin-I High Sensitivity < 3.5 ng/L (<3.5-17.0)
--- NOTE | 2020-10-27 12:10 | PC.NURSE ---
pt from home, states he fell and has been on the floor for 2 days. He arrives soiled with feces, alert and oriented. Pt has been cleaned of stool, has large non blanchable reddened area to Coccyx with small open area above coccyx. Pt also has deep bruise tp buttocks and multiple small scabs to arms and legs.
[2020-10-27 14:05] LABS: Ethanol < 10 mg/dL
--- NOTE | 2020-10-27 14:55 | MHC.RECOVSUP ---
Recovery Support note: Patient is a 55 year old Kittitian speaking female who presented to [facility] due to dizziness. This chief underwriter met with patient to discuss her substance use and treatment options. Patient declines detox, stating that she plans to go to the [facility] on Thursday and that she has already made plans for this. Patient reports she has been on methadone in the past and has found it helpful. Discussed recovery supports in the community with patient. Patient accepted information on the [facility] and [facility]. Encouraged patient to attend meetings at [facility] and to get connected with a coach operator. Patient signed a release and her information was faxed to the [facility] so that they have her labs and EKG when she presents on Thursday. Discussed case with patient's ED provider.
== END 2020-10-27 15:52 | disposition home or self-care (01) ==
PROVIDERS: Physician Assistant; Emergency Provider Emergency Medicine Emergency Medical Services
DX: F11.13 Opioid abuse with withdrawal (principal); R11.0 Nausea; I10 Essential (primary) hypertension; F10.20 Alcohol dependence, uncomplicated; Y90.0 Blood alcohol level of less than 20 mg/100 ml
CPT/HCPCS: 36415; 80048; 80307; 81003; 82077; 84484; 85025; 93005; 96361; 96374; 99285; J2405

== ENCOUNTER 2020-12-19 21:43 | Emergency (ER) | payer MEDICAID, SELFPAY ==
--- NOTE | ~2020-12-19 | XR_ITS ---
EXAMINATION: XR CHEST CLINICAL INFORMATION: Shortness of breath COMPARISON: 09/13/2020 and multiple prior chest radiographs. CT abdomen pelvis 10/12/2016 TECHNIQUE: Frontal view of the chest was obtained. FINDINGS: Heart size normal. There is a prominent hernia with fat pad on the right. There is also a rounded density seen in the medial left cardiophrenic angle secondary to some herniation of fat through the diaphragm can be seen on prior abdominal CT scan. There is cephalization of pulmonary venous flow suggesting mildly elevated left ventricular end-diastolic pressure with a question of mild pulmonary vascular congestion without gross CHF or edema. XR/XR chest 1V IMPRESSION: Cephalization of pulmonary venous flow suggesting mild pulmonary vascular congestion. No pulmonary edema is seen.
[2020-12-19 21:46] VITALS: BP 136/83; BP 148/83; PULSE 80; PULSE 85; RESP 18; TEMP 36.8; O2SAT 95; O2SAT 97; BMI 30.9
[2020-12-19 21:57] VITALS: BP 148/83; PULSE 77; RESP 13; O2SAT 95
--- NOTE | 2020-12-19 21:57 | ED.CHESTPAIN ---
HPI - Chest Pain General Chief Complaint: General Medical Stated Complaint: chest pain/sob Time Seen by Provider: 12/19/20 21:52 Source: patient Mode of arrival: EMS Limitations: no limitations History of Present Illness HPI narrative: Patient history of asthma, anxiety, depression, migraine headaches, chronic back pain, hypertension, and history of a seizure and opiate dependence, left bundle-branch block for increased shortness of breath with wheezing for last 2 days also notices mid chest pain while breathing in similar to that in the past. Chest pain was located in the midsternum sharp in character increases on deep inspiration and coughing history of similar pain in the past when she gets asthma attack EMS gave her 2 nitro glycerin spray and she felt much better no radiation of pain to the arms or the jaw or diaphoresis or vomiting. Patient also complaining of headache with nausea all day Related Data Home Medications Medication Instructions Recorded Confirmed albuterol sulfate 90 mcg/actuation 2 puff INHALATION 6XD PRN 04/26/20 09/13/20 aerosol inhaler (ProAir HFA) lisinopril 5 mg tablet 5 mg PO DAILY 04/26/20 09/13/20 acamprosate 333 mg tablet,delayed 333 mg PO TID 09/13/20 09/13/20 release buprenorphine 8 mg-naloxone 2 mg 1 strip SUBLINGUAL BID 09/13/20 09/13/20 sublingual film (Suboxone) fluticasone propionate 220 2 puff PO BID 09/13/20 09/13/20 mcg/actuation HFA aerosol inhaler (Flovent HFA) Previous Rx's Medication Instructions Recorded dicyclomine 20 mg tablet 20 mg PO TID #14 tab 10/27/20 ondansetron HCl 4 mg tablet 4 mg PO Q8H PRN #7 tab 10/27/20 (Zofran) albuterol sulfate 90 mcg/actuation 2 puff INHALATION Q4-6H PRN #8.5 g 12/19/20 aerosol inhaler (ProAir HFA) prednisone 20 mg tablet 40 mg PO DAILY #10 tab 12/19/20 Allergies Allergy/AdvReac Type Severity Reaction Status Date / Time lisinopril Allergy Severe Angioedema Verified 09/13/20 01:39 hydroxyzine [HYDROXYZINE] AdvReac Intermediate reports Verified 07/31/20 14:19 redness and swelling Review of Systems Review of Systems: Yes all other systems are reviewed and are negative [facility] Past Medical History Medical History Angioedema Anxiety Asthma Chronic back pain Chronic knee pain Depression History of alcohol dependence History of fatty infiltration of liver History of heroin use History of left bundle branch block (LBBB) History of opioid abuse History of panic disorder History of seizure HTN (hypertension) Left against medical advice Migraine Surgical History Hx of colonoscopy Hx of exploratory laparotomy Social History Social History Household Members: None Housing: House Do you presently have visiting nurse or other home services: No Alcohol intake: never Patient Tobacco Use Status: Never used Tobacco Substance Use Type: Heroin, Opiates and Painkillers Advance Directives: No Advance Directives Information Provided: No Patient : No service: No Current occupational status: unemployed Physical Exam Vital Signs: Vital Signs: Last Vital Signs Temp 98.3 F 12/19/20 21:46 Pulse 95 12/19/20 23:54 Resp 13 12/19/20 23:54 BP 118/64 12/19/20 23:54 Pulse Ox 97 12/19/20 23:54 Body Mass Index 30.9 Appearance: Alert. Oriented X3. No acute distress. Eyes: Pallor /icterus ENT: Pharynx normal. Oral Mucosa moist Neck: Normal inspection. Neck supple. CVS: Normal heart rate and rhythm. Pulses normal. Respiratory: No respiratory distress. Equal air entry bilateral, bilateral wheezing no crackles Abdomen: Soft and nontender. Bowel sounds are present, no mass palpable, no CVA tenderness Skin: Skin warm and dry. Normal skin color. Normal skin turgor. Extremities: No lower extremity edema. No calf tenderness Neuro: Oriented X 3. MDM - Chest Pain MDM Narrative Medical decision making narrative: Patient has atypical chest pain without any EKG changes improved after nebulizing treatment will repeat the troponin to see any delta change patient feeling much better after nebulizing treatment and Solu-Medrol No increase in Delta high sensitive troponin will discharge patient home patient is chest pain-free Medical Records Data Attestation: I reviewed the patient's medical records. Lab Data Attestation: I reviewed the patient's lab results. Result diagrams: 12/19/20 22:10 12/19/20 22:10 Labs: Lab Results 12/19/20 12/19/20 12/19/20 Range/Units 22:05 22:10 22:10 WBC 9.0 (4.8-10.8) X10*3/uL RBC 4.02 L (4.20-5.50) X10*6/uL Hgb 12.0 (12.0-16.0) g/dl Hct 36.4 L (37-47) % MCV 90.5 (80-98) fL MCH 29.9 (27.0-33.0) pg MCHC 33.0 (31.0-35.0) g/dl RDW 12.0 (11.0-16.0) % Plt Count 302 (160-400) X10*3/uL MPV 9.1 L (9.4-12.3) fL Immature Gran % (Auto) 0.2 (0.0-0.4) % Neut % (Auto) 62.0 (45-73) % Lymph % (Auto) 21.8 (20-40) % Angelina % (Auto) 6.9 (2-11) % Eos % (Auto) 8.5 H (0-4) % Baso % (Auto) 0.6 (0-2) % Lymph # (Auto) 2.0 (1.2-4.9) X10*3/uL Angelina # (Auto) 0.6 (0.1-1.2) X10*3/uL Eos # (Auto) 0.8 H (0.0-0.4) X10*3/uL Baso # (Auto) 0.1 (0.0-0.2) X10*3/uL Abs Immat Gran (auto) 0.02 (0.00-0.03) X10*3/uL Absolute Neuts (auto) 5.6 (2.0-8.3) X10*3/uL Absolute Nucleated RBC 0.000 (0.0-0.012) X10*3/uL Nucleated RBC % (auto) 0.0 (0.0-0.2) /100WBC Sodium 138 (135-145) mmol/L Potassium 3.7 (3.3-5.1) mmol/L Chloride 102 (96-108) mmol/L Carbon Dioxide 29 (22-29) mmol/L Anion Gap 11 L (12-20) BUN 16 (9-16) mg/dL Creatinine 0.76 (0.5-1.4) mg/dL Estim Creat Clear Calc 84.4 Estimated GFR > 60 Random Glucose 93 (60-115) mg/dL Calcium 9.3 (8.4-10.2) mg/dL Troponin I High Sens (<3.5-17.0) ng/L COVID-19 (ISHMAEL) Negative (Negative) COVID-19 Clin Com See Note 12/19/20 12/19/20 Range/Units 22:10 23:58 WBC (4.8-10.8) X10*3/uL RBC (4.20-5.50) X10*6/uL Hgb (12.0-16.0) g/dl Hct (37-47) % MCV (80-98) fL MCH (27.0-33.0) pg MCHC (31.0-35.0) g/dl RDW (11.0-16.0) % Plt Count (160-400) X10*3/uL MPV (9.4-12.3) fL Immature Gran % (Auto) (0.0-0.4) % Neut % (Auto) (45-73) % Lymph % (Auto) (20-40) % Angelina % (Auto) (2-11) % Eos % (Auto) (0-4) % Baso % (Auto) (0-2) % Lymph # (Auto) (1.2-4.9) X10*3/uL Angelina # (Auto) (0.1-1.2) X10*3/uL Eos # (Auto) (0.0-0.4) X10*3/uL Baso # (Auto) (0.0-0.2) X10*3/uL Abs Immat Gran (auto) (0.00-0.03) X10*3/uL Absolute Neuts (auto) (2.0-8.3) X10*3/uL Absolute Nucleated RBC (0.0-0.012) X10*3/uL Nucleated RBC % (auto) (0.0-0.2) /100WBC Sodium (135-145) mmol/L Potassium (3.3-5.1) mmol/L Chloride (96-108) mmol/L Carbon Dioxide (22-29) mmol/L Anion Gap (12-20) BUN (9-16) mg/dL Creatinine (0.5-1.4) mg/dL Estim Creat Clear Calc Estimated GFR Random Glucose (60-115) mg/dL Calcium (8.4-10.2) mg/dL Troponin I High Sens 5.0 4.8 (<3.5-17.0) ng/L COVID-19 ([facility]MAEL) (Negative) COVID-19 Clin Com ECG Data ECG #1: Attestation: I personally reviewed and interpreted this ECG as follows: Interpretation: Normal sinus rhythm heart rate 82 beats per minute left axis deviation left bundle-branch block no acute ST T wave changes no acute ischemic Discharge Plan Discharge Clinical Impression: Asthma Qualifiers: Asthma severity: moderate Asthma persistence: persistent Asthma complication type: with acute exacerbation Qualified Code(s): J45.41 - Moderate persistent asthma with (acute) exacerbation Patient Disposition: Home, Self-Care Instructions: Asthma (ED) Additional Instructions: Use inhaler as advised Prednisone as prescribed Follow with PCP if not better Prescriptions: New prednisone 20 mg tablet 40 mg PO DAILY Qty: 10 RF: 0 albuterol sulfate [ProAir HFA] 90 mcg/actuation HFA aerosol inhaler 2 puff inhalation Q4-6H PRN (Reason: Wheezing) Qty: 8.5 RF: 0 No Action lisinopril 5 mg Tablet 5 mg PO DAILY RF: 0 albuterol sulfate [ProAir HFA] 90 mcg/actuation Hfa Aerosol Inhaler 2 puff INHALATION 6XD PRN (Reason: Wheezing) RF: 0 ondansetron HCl [Zofran] 4 mg tablet 4 mg PO Q8H PRN (Reason: nausea and vomiting) Qty: 7 RF: 0 dicyclomine 20 mg tablet 20 mg PO TID Qty: 14 RF: 0 Flovent HFA 220 mcg/actuation HFA aerosol inhaler 2 puff PO BID RF: 0 acamprosate 333 mg tablet,delayed release (DR/EC) 333 mg PO TID RF: 0 buprenorphine-naloxone [Suboxone] 8-2 mg film 1 strip sublingual BID RF: 0
--- NOTE | 2020-12-19 21:58 | ECG_ITS ---
Test Reason : CHEST PAIN Blood Pressure : / mmHG Vent. Rate : 082 BPM Atrial Rate : 082 BPM P-R Int : 142 ms QRS Dur : 138 ms QT Int : 418 ms P-R-T Axes : 064 -56 097 degrees QTc Int : 488 ms Normal sinus rhythm Left axis deviation Left bundle branch block Abnormal ECG When compared with ECG of 27-OCT-2020 10:59, T wave inversion now evident in Lateral leads Referred By: Rico Nevarez Electronically Signed By:LOUISE GONZALEZ
[2020-12-19 22:16] LABS: MANUAL DIFF FLAG NO
[2020-12-19 22:17] LABS: Basophils Absolute Auto 0.1 X10*3/uL (0.0-0.2); Basophils Percent Auto 0.6 % (0-2); Eosinophils Absolute Auto 0.8 X10*3/uL (0.0-0.4); Eosinophils Percent Auto 8.5 % (0-4); Hematocrit 36.4 % (37-47); Imm Gran Abs Auto 0.02 X10*3/uL (0.00-0.03); Imm Gran Pct Auto 0.2 % (0.0-0.4); Lymphocytes Percent Auto 21.8 % (20-40); Mean Corpuscular Hemoglobin 29.9 pg (27.0-33.0); Mean Corpuscular Volume 90.5 fL (80-98); Mean Platelet Volume 9.1 fL (9.4-12.3); Monocytes Absolute Auto 0.6 X10*3/uL (0.1-1.2); Monocytes Percent Auto 6.9 % (2-11); Neutrophils Absolute Auto 5.6 X10*3/uL (2.0-8.3); Platelet Count 302 X10*3/uL (160-400); Red Blood Count 4.02 X10*6/uL (4.20-5.50)
[2020-12-19] MEDS: Albuterol Sulfate (0.083%) 2.5 MG/3 ML VIAL.NEB 5 MG INHALE (22:24)
[2020-12-19] MEDS: Albuterol/Iprat 2.5/0.5MG 3 ML AMPUL.NEB INHALE (22:24)
[2020-12-19 22:25] VITALS: PULSE 85; O2SAT 96
[2020-12-19 22:29] LABS: Anion Gap 11 (12-20); Blood Urea Nitrogen 16 mg/dL (9-16); Calcium 9.3 mg/dL (8.4-10.2); Carbon Dioxide 29 mmol/L (22-29); Chloride 102 mmol/L (96-108); Creatinine Clr Calc Pharmacy 84.4; Estimated Glomerular Filt Rate > 60; Glucose Random 93 mg/dL (60-115); Potassium 3.7 mmol/L (3.3-5.1); Sodium 138 mmol/L (135-145)
[2020-12-19 22:35] LABS: COVID-19 Test Negative (Negative)
[2020-12-19] MEDS: methylPREDNISolone Sod Succ 125 MG/2 ML VIAL IVPUSH (23:53)
[2020-12-19 23:54] VITALS: BP 118/64; PULSE 95; RESP 13; O2SAT 97
[2020-12-20 00:27] LABS: Troponin-I High Sensitivity 4.8 ng/L (<3.5-17.0)
[2020-12-20 01:09] VITALS: BP 121/73; PULSE 88; RESP 20; O2SAT 97
== END 2020-12-20 01:10 | disposition home or self-care (01) ==
PROVIDERS: Emergency Provider Internal Medicine
DX: J45.41 Moderate persistent asthma with (acute) exacerbation (principal); R07.9 Chest pain, unspecified; R06.02 Shortness of breath; F11.20 Opioid dependence, uncomplicated; Z79.899 Other long term (current) drug therapy; Z20.822 Contact with and (suspected) exposure to COVID-19
CPT/HCPCS: 36415; 71045; 80048; 84484; 85025; 87635; 93005; 94640; 94644; 99284; J2930

== ENCOUNTER 2021-05-13 06:05 | Emergency (ER) | payer MEDICAID, SELFPAY ==
[2021-05-13 06:12] VITALS: BP 137/100; BP 144/69; PULSE 81; PULSE 86; RESP 20; TEMP 36.8; O2SAT 93; O2SAT 97; BMI 32.0
--- NOTE | 2021-05-13 06:39 | ED.URI ---
HPI - URI/Sore Throat General Chief Complaint: General Medical Stated Complaint: fever Time Seen by Provider: 05/13/21 06:29 Source: patient Mode of arrival: EMS Limitations: no limitations History of Present Illness HPI Narrative: states she was fine yesterday and woke up like this no sick contacts, no fevers, no exposures, also notes she ran out of her metoprolol 25mg daily x 4 days. triage note not accurate about fevers states she never had a fever. MD elicited complaint: sore throat (burning) and other (wheezing) Pertinent past history: asthma Onset (ago): hour(s) (5am today) Consistency: constant Severity: moderate Description of mucous: clear Able to tolerate fluids by mouth: Yes Exacerbating factors: swallowing Relieving factors: nothing Associated symptoms: sore throat and shortness of breath Treatments prior to arrival: none Related Data Home Medications Medication Instructions Recorded Confirmed albuterol sulfate 90 mcg/actuation 2 puff INHALATION 6XD PRN 04/26/20 09/13/20 aerosol inhaler (ProAir HFA) lisinopril 5 mg tablet 5 mg PO DAILY 04/26/20 09/13/20 acamprosate 333 mg tablet,delayed 333 mg PO TID 09/13/20 09/13/20 release buprenorphine 8 mg-naloxone 2 mg 1 strip SUBLINGUAL BID 09/13/20 09/13/20 sublingual film (Suboxone) fluticasone propionate 220 2 puff PO BID 09/13/20 09/13/20 mcg/actuation HFA aerosol inhaler (Flovent HFA) Previous Rx's Medication Instructions Recorded dicyclomine 20 mg tablet 20 mg PO TID #14 tab 10/27/20 ondansetron HCl 4 mg tablet 4 mg PO Q8H PRN #7 tab 10/27/20 (Zofran) albuterol sulfate 90 mcg/actuation 2 puff INHALATION Q4-6H PRN #8.5 g 12/19/20 aerosol inhaler (ProAir HFA) prednisone 20 mg tablet 40 mg PO DAILY #10 tab 12/19/20 amoxicillin 875 mg-potassium 1 tab PO BID #14 tab 05/13/21 clavulanate 125 mg tablet metoprolol succinate 25 mg 25 mg PO DAILY #30 tab 05/13/21 tablet,extended release 24 hr (Toprol XL) prednisone 20 mg tablet 40 mg PO DAILY 5 Days #10 tab 05/13/21 Allergies Allergy/AdvReac Type Severity Reaction Status Date / Time lisinopril Allergy Severe Angioedema Verified 09/13/20 01:39 hydroxyzine [HYDROXYZINE] AdvReac Intermediate reports Verified 07/31/20 14:19 redness and swelling Review of Systems Review of Systems: Constitutional : No Fever, No Chills ENT/Mouth : pos Hoarseness, pos sore throat, No Rhinorrhea Eyes: No Redness, No Discharge, No Vision Changes Cardiovascular : No Chest Pain, positive SOB, no Dyspnea on Exertion, No Edema Respiratory : positive Cough, No Sputum, positive Wheezing, Gastrointestinal : No Nausea, No Vomiting, No Diarrhea, No abdominal Pain Genitourinary : No Dysuria, No Hematuria Musculoskeletal : No joint pain, No Myalgias Skin : No rash Neuro : No Weakness, No Numbness, No Headache Psych : No anxiety, depression Heme/Lymph: No Bruising, No Bleeding Endocrine : No Polyuria, No Polydipsia All other systems reviewed and are negative [facility] Past Medical History Attestation statement: The following information was validated with the patient. Source: old records reviewed Medical History Angioedema Anxiety Asthma Chronic back pain Chronic knee pain Depression History of alcohol dependence History of fatty infiltration of liver History of heroin use History of left bundle branch block (LBBB) History of opioid abuse History of panic disorder History of seizure HTN (hypertension) Left against medical advice Migraine Surgical History Hx of colonoscopy Hx of exploratory laparotomy Social History Social History Household Members: None Housing: House Do you presently have visiting nurse or other home services: No Alcohol intake: never Patient Tobacco Use Status: Never used Tobacco Substance Use Type: Heroin, Opiates and Painkillers Advance Directives: No Patient : No service: No Current occupational status: unemployed Physical Exam Vital Signs: Vital Signs: Last Vital Signs Temp 98.2 F 05/13/21 06:12 Pulse 80 05/13/21 06:56 Resp 12 05/13/21 06:56 BP 103/57 L 05/13/21 06:56 Pulse Ox 96 02/21/22 06:56 BMI result Body Mass Index 32.0 Appearance: Alert. Oriented X3. No acute distress. Eyes: Pupils equal, round and reactive to light. ENT: Pharynx mild swelling with erythema no patches, uvula midline, normal voice, tolerating secretions. Neck: Normal inspection. Neck supple. CVS: Normal heart rate and rhythm. Pulses normal. Respiratory: No respiratory distress. Breath sounds with mild diffuse end exp wheezes Abdomen: Soft and non-tender. Skin: Skin warm and dry. Normal skin color. Normal skin turgor. Extremities: No lower extremity edema. No calf ttp Neuro: Oriented X 3. No motor deficit. No sensory deficit. Course Course Course Narrative: reports improvement, lungs CTAB, denies oral swelling 96% on RA MDM - URI/Sore Throat MDM Narrative Medical decision making narrative: 55 yo female with hx of asthma, arthritis, HTN, snorts heroin occasionally, notes she woke up this AM with sore burning throat - no sick contacts felt fine yesterday - at this time denies fevers, normal voice, tolerating secretions - COVID/strep swab ordered. Albuterol, IV steroids, IV pepcid/benadryl, observation. Possible allergy vs URI - dispo per results and improvement. Lab Data Labs: Lab Results 05/13/21 05/13/21 Range/Units 06:31 06:31 COVID-19 (ISHMAEL) Negative (Negative) COVID-19 Clin Com See Note S. pyogenes GrpA KELLI Negative (Negative) Discharge Plan Discharge Clinical Impression: Pharyngitis Qualifiers: Pharyngitis/tonsillitis etiology: unspecified etiology Qualified Code(s): J02.9 - Acute pharyngitis, unspecified Asthma Qualifiers: Asthma severity: moderate Asthma persistence: persistent Asthma complication type: with acute exacerbation Qualified Code(s): J45.41 - Moderate persistent asthma with (acute) exacerbation Patient Disposition: Home, Self-Care Instructions: Asthma (ED), Pharyngitis (ED) Additional Instructions: return to ED for any worsening symptoms or concerns Prescriptions: New prednisone 20 mg tablet 40 mg PO DAILY 5 Days Qty: 10 0RF amoxicillin-pot clavulanate 875-125 mg tablet 1 tab PO BID Qty: 14 0RF metoprolol succinate [Toprol XL] 25 mg tablet extended release 24 hr 25 mg PO DAILY Qty: 30 1RF No Action lisinopril 5 mg Tablet 5 mg PO DAILY 0RF albuterol sulfate [ProAir HFA] 90 mcg/actuation Hfa Aerosol Inhaler 2 puff INHALATION 6XD PRN (Reason: Wheezing) 0RF ondansetron HCl [Zofran] 4 mg tablet 4 mg PO Q8H PRN (Reason: nausea and vomiting) Qty: 7 0RF dicyclomine 20 mg tablet 20 mg PO TID Qty: 14 0RF Flovent HFA 220 mcg/actuation HFA aerosol inhaler 2 puff PO BID 0RF acamprosate 333 mg tablet,delayed release (DR/EC) 333 mg PO TID 0RF buprenorphine-naloxone [Suboxone] 8-2 mg film 1 strip sublingual BID 0RF prednisone 20 mg tablet 40 mg PO DAILY Qty: 10 0RF albuterol sulfate [ProAir HFA] 90 mcg/actuation HFA aerosol inhaler 2 puff inhalation Q4-6H PRN (Reason: Wheezing) Qty: 8.5 0RF Referrals: [facility] [Primary Care Provider] - 2 days (if not better)
[2021-05-13 06:45] LABS: Strep A Nucleic Acid Negative (Negative)
[2021-05-13] MEDS: Albuterol Sulfate (0.083%) 2.5 MG/3 ML VIAL.NEB INHALE (06:49)
[2021-05-13 06:51] VITALS: PULSE 74; RESP 14; O2SAT 97
[2021-05-13 06:56] VITALS: BP 103/57; PULSE 80; RESP 12; O2SAT 96
[2021-05-13 07:14] LABS: COVID-19 Test Negative (Negative)
[2021-05-13] MEDS: diphenhydrAMINE HCL 50 MG/ML VIAL 25 MG IVPUSH (07:53)
[2021-05-13] MEDS: Famotidine/PF 20 MG/2 ML VIAL IVPUSH (07:53)
[2021-05-13] MEDS: methylPREDNISolone Sod Succ 125 MG/2 ML VIAL IVPUSH (07:54)
== END 2021-05-13 08:50 | disposition home or self-care (01) ==
PROVIDERS: Emergency Provider Emergency Medicine
DX: J45.41 Moderate persistent asthma with (acute) exacerbation (principal); J02.9 Acute pharyngitis, unspecified; R50.9 Fever, unspecified; R06.02 Shortness of breath; F11.90 Opioid use, unspecified, uncomplicated; Z20.822 Contact with and (suspected) exposure to COVID-19; Z79.899 Other long term (current) drug therapy
CPT/HCPCS: 87635; 87651; 94640; 96374; 96375; 99283; 99284; J1200; J2930

== ENCOUNTER 2021-08-03 18:42 | Emergency (ER) | payer MEDICAID, SELFPAY ==
--- NOTE | ~2021-08-03 | XR_ITS ---
EXAMINATION: XR CHEST CLINICAL INFORMATION: Chest tightness COMPARISON: Chest radiograph 12/19/[address] abdomen pelvis 10/12/2016 TECHNIQUE: Frontal view of the chest was obtained. FINDINGS: Heart size normal. No evidence of CHF. Right prominent epicardial fat pad is again noted as is the rounded density in the medial left costophrenic angle which corresponds to some diaphragmatic fat. New left lower lobe atelectasis/infiltrate is present with some mild obscuration of left hemidiaphragm. No pleural effusions. XR/XR chest 1V IMPRESSION: New area of infiltrate/atelectasis left lower lobe.
--- NOTE | 2021-08-03 19:07 | ECG_ITS ---
Test Reason : SORE THROAT Blood Pressure : / mmHG Vent. Rate : 089 BPM Atrial Rate : 089 BPM P-R Int : 150 ms QRS Dur : 134 ms QT Int : 398 ms P-R-T Axes : 059 -35 101 degrees QTc Int : 484 ms Normal sinus rhythm Left axis deviation Left bundle branch block Abnormal ECG When compared with ECG of 19-DEC-2020 22:02, No significant change was found Referred By: Generic ED Physician Electronically Signed By:KELLY VIGIL MD
[2021-08-03 19:32] VITALS: BP 134/85; PULSE 110; RESP 22; TEMP 36.4; O2SAT 98; BMI 34.0
[2021-08-03 20:23] LABS: COVID-19 Test Negative (Negative)
[2021-08-03 20:23] LABS: IDNOW Serial# 55D5AD1C; Influenza A Negative (Negative); Influenza B2 Negative (Negative)
[2021-08-03 20:43] LABS: MANUAL DIFF FLAG NO
[2021-08-03 20:47] LABS: Basophils Absolute Auto 0.1 X10*3/uL (0.0-0.2); Basophils Percent Auto 0.5 % (0-2); Eosinophils Absolute Auto 0.4 X10*3/uL (0.0-0.4); Eosinophils Percent Auto 3.9 % (0-4); Hematocrit 38.3 % (37.0-47.0); Hemoglobin 12.4 g/dl (12.0-16.0); Imm Gran Abs Auto 0.02 X10*3/uL (0.00-0.03); Imm Gran Pct Auto 0.2 % (0.0-0.4); Lymphocytes Absolute Auto 1.5 X10*3/uL (1.2-4.9); Lymphocytes Percent Auto 14.4 % (20-40); Mean Corpuscular HGB Conc 32.4 g/dl (31.0-35.0); Mean Corpuscular Hemoglobin 29.2 pg (27.0-33.0); Mean Corpuscular Volume 90.3 fL (80.0-98.0); Mean Platelet Volume 9.3 fL (9.4-12.3); Monocytes Absolute Auto 0.7 X10*3/uL (0.1-1.2); Monocytes Percent Auto 6.9 % (2-11); Neutrophils Absolute Auto 7.8 x10*3/uL (2.0-8.3); Neutrophils Percent Auto 74.1 % (45-73); Platelet Count 334 X10*3/uL (160-400); Red Blood Count 4.24 X10*6/uL (4.20-5.50); Red Cell Distribution Width 12.2 % (11.0-16.0); White Blood Count 10.5 X10*3/uL (4.8-10.8)
[2021-08-03 20:59] LABS: Anion Gap 14 (12-20); Blood Urea Nitrogen 19 mg/dL (9-16); Calcium 10.3 mg/dL (8.4-10.2); Carbon Dioxide 28 mmol/L (22-29); Chloride 105 mmol/L (96-108); Creatinine Clr Calc Pharmacy 91.4; Estimated Glomerular Filt Rate > 60; Glucose Random 112 mg/dL (60-115); Potassium 5.1 mmol/L (3.3-5.1); Sodium 142 mmol/L (135-145)
[2021-08-03 21:06] LABS: B Type Natriuretic Peptide 17 pg/mL (<100); Troponin-I High Sensitivity 3.7 ng/L (<3.5-17.0)
== END 2021-08-04 00:27 | disposition left against medical advice (07) ==
LOC: HO.ED 21:51
PROVIDERS: Emergency Provider Emergency Medicine
DX: J02.9 Acute pharyngitis, unspecified (principal); R94.31 Abnormal electrocardiogram [ECG] [EKG]; R07.89 Other chest pain; Z20.822 Contact with and (suspected) exposure to COVID-19
CPT/HCPCS: 36415; 71045; 80048; 83880; 84484; 85025; 87502; 87635; 93005; 99282; 99283

== ENCOUNTER → 2021-08-28 14:24 | Outpatient (BNVA) | payer MEDICAID, SELFPAY | PROVIDERS: PCP Internal Medicine; Visit Provider Internal Medicine Pulmonary Disease | DX: G47.33 Obstructive sleep apnea (adult) (pediatric) (principal); R06.00 Dyspnea, unspecified | CPT/HCPCS: 99202 ==

== ENCOUNTER 2021-09-04 08:35 | Outpatient (REF) | payer MEDICAID, SELFPAY ==
--- NOTE | ~2021-09-04 | CT_ITS ---
EXAMINATION: CT CHEST WITHOUT CONTRAST CLINICAL INFORMATION: Dyspnea COMPARISON: Previous chest x-ray most recent July 2021 TECHNIQUE: Multidetector volumetric CT imaging of the chest was done. Axial MIP volume rendering provided. Sagittal and coronal reformatted images were obtained. This CT examination was performed using dose optimization techniques as appropriate, variously including the following: *Automated exposure control *Adjustment of mA and/or kV according to patient size (this includes techniques or standardized protocols for targeted exams where dose is matched to indication/reason for exam; i.e. extremities or head) *Use of iterative reconstruction technique DLP: 200 mGy-cm FINDINGS: [employer] APPRENTICE: LUNGS: There is a 3 mm calcified peripheral or subpleural right middle lobe nodule axial image 304 and right lower lobe nodule axial image 335 series 7. There is minimal scarring or subsegmental atelectasis at the lung bases. No evidence of emphysema interstitial lung disease or atelectasis. No endobronchial or endotracheal lesion. MEDIASTINUM: Mild coronary artery calcification. There is prominent right epicardial fat. The mediastinum is otherwise normal. PLEURA: There is a small left posterior medial diaphragmatic hernia containing fat. There is no pleural effusion or pleural thickening. AXILLA: No lymphadenopathy. UPPER ABDOMEN: There is a is fatty infiltration of the pancreas. OSSEOUS STRUCTURES: Mild degenerative changes of the spine. CT/CT chest wo con IMPRESSION: 2 small calcified pulmonary nodules probably representing calcified granulomas. Prominent right epicardial fat accounting for chest x-ray findings. Small left posterior medial diaphragmatic hernia containing fat. Fleischner guidelines were followed.
== END 2021-09-04 08:36 | disposition home or self-care (01) ==
LOC: HO.CT 08:35
PROVIDERS: Visit Provider Internal Medicine Pulmonary Disease
DX: R06.00 Dyspnea, unspecified (principal)
CPT/HCPCS: 71250

== ENCOUNTER 2021-10-02 12:51 | Outpatient (REF) | payer MEDICAID, SELFPAY ==
--- NOTE | 2021-10-02 13:39 | PFT_ITS ---
Forced vital capacity 84%, FEV1 78%. FEV1/FVC ratio is 74. IQA02-20 54% and MVV is 97%. Post bronchodilator therapy, there is no significant change. Total lung capacity 92%. Residual volume is 97%. Diffusion capacity 95%. CONCLUSION: There is evidence of mild obstructive airway disorder. There is no significant response to bronchodilator therapy. MD PHOEBE Giron/MODL / [id number]
== END 2021-10-02 12:52 | disposition home or self-care (01) ==
LOC: HO.RESP 12:51
PROVIDERS: Visit Provider Internal Medicine
DX: R06.00 Dyspnea, unspecified (principal)
CPT/HCPCS: 94060; 94727; 94729

== ENCOUNTER → 2021-10-09 12:50 | Outpatient (BNVA) | payer MEDICAID, SELFPAY | PROVIDERS: PCP Internal Medicine; Visit Provider Internal Medicine Pulmonary Disease | DX: R06.00 Dyspnea, unspecified (principal); G47.33 Obstructive sleep apnea (adult) (pediatric) | CPT/HCPCS: 99212 ==

== ENCOUNTER → 2021-12-03 11:05 | Outpatient (BNVA) | payer MEDICAID, SELFPAY | PROVIDERS: PCP Internal Medicine; Visit Provider Internal Medicine Pulmonary Disease | DX: G47.33 Obstructive sleep apnea (adult) (pediatric) (principal); R06.00 Dyspnea, unspecified | CPT/HCPCS: 99212 ==

== ENCOUNTER 2022-05-03 16:18 | Emergency (ER) | payer MEDICAID, SELFPAY ==
--- NOTE | ~2022-05-03 | CT_ITS ---
EXAMINATION: CT HEAD WITHOUT CONTRAST CLINICAL INFORMATION: 56-year-old female with dizziness following head trauma COMPARISON: None TECHNIQUE: Contiguous axial imaging was performed from the skull base to vertex without intravenous administration of contrast. This CT examination was performed using dose optimization techniques as appropriate, variously including the following: *Automated exposure control *Adjustment of mA and/or kV according to patient size (this includes techniques or standardized protocols for targeted exams where dose is matched to indication/reason for exam; i.e. extremities or head) *Use of iterative reconstruction technique DLP: 640 mGy-cm FINDINGS: BRAIN PARENCHYMA: No acute hemorrhage. No mass effect or herniation. Rutherford-white differentiation is maintained. White matter is within normal limits for age. VENTRICLES/EXTRA-AXIAL SPACES: No hydrocephalus or extra-axial fluid collections. EXTRACRANIAL STRUCTURES: Visualized paranasal sinuses revealed opacification of ethmoidal sinuses, sphenoidal sinuses, partially frontal sinuses are well-aerated. Maxillary sinuses are opacified. Mastoids are well aerated. CT/CT head/brain wo IV con IMPRESSION: No acute intracranial pathology. Pansinusitis.
[2022-05-03 16:29] VITALS: BP 110/59; PULSE 93; RESP 20; TEMP 36.8; O2SAT 95; BMI 28.3
--- NOTE | 2022-05-03 16:34 | ED_ITS ---
HPI - General Adult General Chief complaint: Nausea/Vomiting/Diarrhea <JAMYE Olivares - Last Filed: 05/03/22 16:38> Stated complaint: Headache/Dizziness <JAMEY Olivares - Last Filed: 05/03/22 16:38> Time Seen by Provider: 05/03/22 21:03 <JAMEY Olivares - Last Filed: 05/03/22 16:38> Source: patient <Jass Epstein MD - Last Filed: 05/03/22 21:29> Mode of arrival: ambulatory <Jass Epstein MD - Last Filed: 05/03/22 21:29> Limitations: no limitations <Jass Epstein MD - Last Filed: 05/03/22 21:29> History of Present Illness HPI narrative: 56-year-old female presents with headache, nausea, vomiting. Patient reports having received a concussion 1 week ago. She was at a store when something fell on her head. She did not lose consciousness. She had a headache for couple days which went away. However, the symptoms returned yesterday. She describes her headache as right-sided. The pain is a 9/10. It does not radiate. It is associated with photophobia but no phonophobia. She has had nausea and vomiting yesterday, no vomiting today. She denies any fevers or chills. She denies any neck pain, neck stiffness or fevers. She denies any cough, fever, chills, cough or mucus production. She has tried [id number] medications without significant relief. With that <Jass Epstein MD - Last Filed: 05/03/22 21:29> Related Data Home medications: Home Medications Medication Instructions Recorded Confirmed cetirizine 10 mg tablet 10 mg PO DAILY 08/28/21 clonidine HCl 0.1 mg tablet 0.1 mg PO BID 08/28/21 hydrochlorothiazide 12.5 mg tablet 12.5 mg PO DAILY 08/28/21 hydroxyzine HCl 25 mg tablet 25 - 50 mg PO Q6H PRN anxiety 08/28/21 loperamide 2 mg tablet 2 mg PO Q4H PRN diarrhea 08/28/21 (Anti-Diarrheal (loperamide)) naloxone 4 mg/actuation nasal 0 spray intranasal 08/28/21 spray (Narcan) pseudoephedrine HCl 30 mg tablet 60 mg PO Q4-6H PRN 08/28/21 (Sudogest) Previous Rx's Medication Instructions Recorded ondansetron HCl 4 mg tablet 4 mg PO Q8H PRN nausea and 10/27/20 (Zofran) vomiting #7 tabs albuterol sulfate 90 mcg/actuation 2 puff inhalation Q4-6H PRN 12/19/20 aerosol inhaler (ProAir HFA) Wheezing #8.5 grams metoprolol succinate 25 mg 25 mg PO DAILY #30 tabs 05/13/21 tablet,extended release 24 hr (Toprol XL) umeclidinium 62.5 mcg-vilanterol 1 inh inhalation DAILY 30 days #1 08/28/21 25 mcg/actuation powdr for ea inhalation (Anoro Ellipta) ibuprofen 600 mg tablet 600 mg PO Q8H PRN pain #14 tabs 05/03/22 ondansetron 4 mg disintegrating 4 mg PO Q8H PRN nausea and 05/03/22 tablet vomiting #10 tabs <JAMEY Olivares - Last Filed: 05/03/22 16:38> Allergies/adverse reactions: Allergies Allergy/AdvReac Type Severity Reaction Status Date / Time lisinopril Allergy Severe Angioedema Verified 12/03/21 11:07 hydroxyzine [HYDROXYZINE] AdvReac Intermediate reports Verified 12/03/21 11:07 redness and swelling <JAMEY Olivares - Last Filed: 05/03/22 16:38> Review of Systems Review of Systems: CONSTITUTIONAL: Denies weight loss, fever and chills. HEENT: Denies changes in vision and hearing. RESPIRATORY: Denies SOB and cough. CV: Denies palpitations no CP. GI: Denies abdominal pain, positivenausea, vomiting negative diarrhea. : Denies dysuria and urinary frequency. MSK: Denies myalgia and joint pain. SKIN: Denies rash and pruritus. NEUROLOGICAL: positive headache and negativesyncope. PSYCHIATRIC: Denies recent changes in mood. Denies anxiety and depression. All other ROS are negative unless in HPI <Jass Epstein MD - Last Filed: 05/03/22 21:29> PENDING SALE TO [facility] Past Medical History Medical History: Medical History Angioedema Anxiety Asthma Chronic back pain Chronic knee pain Depression History of alcohol dependence History of fatty infiltration of liver History of heroin use History of left bundle branch block (LBBB) History of opioid abuse History of panic disorder History of seizure HTN (hypertension) Left against medical advice Migraine <JAMEY Olivares - Last Filed: 05/03/22 16:38> Surgical History: Surgical History Hx of colonoscopy Hx of exploratory laparotomy <JAMEY Olivares - Last Filed: 05/03/22 16:38> Social History Social History: Social History Household Members: None Housing: House Do you presently have visiting nurse or other home services: No Alcohol intake: never Patient Tobacco Use Status: Never used Tobacco Smoked in Last 30 Days: No Use of substances other than those prescribed or required for medical reasons: No Substance Use Type: Heroin, Opiates and Painkillers Advance Directives: No Advance Directives Information Provided: No Patient : No service: No Current occupational status: unemployed <JAMEY Olivares - Last Filed: 05/03/22 16:38> Physical Exam ED Vital Signs: Vital Signs - 24 hr 05/03/22 16:29 05/03/22 21:02 Temperature 98.3 F 98.6 F Pulse Rate 93 95 Respiratory Rate 20 20 Blood Pressure 110/59 L 104/52 L Pulse Oximetry 95 95 Oxygen Delivery Method Room Air Room Air BMI result Body Mass Index 28.3 <JAMEY Olivares - Last Filed: 05/03/22 16:38> Vital Signs - 24 hr 05/03/22 16:29 05/03/22 21:02 Temperature 98.3 F 98.6 F Pulse Rate 93 95 Respiratory Rate 20 20 Blood Pressure 110/59 L 104/52 L Pulse Oximetry 95 95 Oxygen Delivery Method Room Air Room Air BMI result Body Mass Index 28.3 GEN: Well developed, no acute distress, alert, oriented HEENT: Normocephalic, atraumatic, normal external ears, nose appears normal, no oropharyngeal edema or exudates Eyes: Normal to appearance Neck: Supple, no lymphadenopathy Respiratory: Talks in complete sentences, no respiratory distress, clear to auscultation bilaterally Cardiovascular: Regular rate and rhythm, no murmurs rubs or gallops Abdomen: Soft, nontender, nondistended, no guarding, no rebound Back: No CVA tenderness Extremities: No clubbing cyanosis or edema Neurologic: No focal neurologic deficits, cranial nerves 2-12 intact, strength is 5/5 bilaterally, gait normal Skin: No rash <Jass Epstein MD - Last Filed: 05/03/22 21:29> Course Course Course Narrative: RME- 16:40pm 56yoF with a PMHx of Concussion after 2 weeks ago from a lamp falling on her head at a store. She was seen at [facility] and had the physical exam no imaging although she continues to have persistent dizziness, nausea/vomiting and blurry vision. Also reports abdominal pain/back pain unsure if this is related. Associated diarrhea. She denies any chest pain, shortness of breath, dysuria or any other symptoms complaints or concerns at this time. Plan: Will obtain labs, CT scan of brain. Patient was given 4 mg of Zofran. Patient can be sent back to the waiting to be evaluated in ED. <JAMEY Olivares - Last Filed: 05/03/22 16:38> Reevaluation(s) Reevaluation #1: patient would like to leave at this time. Her workup is complete. Her laboratory analysis revealed an elevated alkaline phosphatase which he can follow up with her primary care provider. CT scan of the head identified no acute intracranial pathology. The rest of her lab work was unremarkable. She does have an abnormal EKG which can also follow up with her primary care provider. She has no cardiac symptoms at this time. Will provide patient with Zofran, Tylenol and ibuprofen. Will send her home with prescriptions for ibuprofen and Zofran. I discussed all results with the patient. I asked discussed her discharge instructions and recommendation for follow-up. She is aware of the reasons to return to the emergency department. <Jass Epstein MD - Last Filed: 05/03/22 21:29> Time: 21:24 <Jass Epstein MD - Last Filed: 05/03/22 21:29> Medications Administered Discontinued Medications Generic Name Dose Route Start Last Admin Trade Name Freq PRN Reason Stop Dose Admin Ondansetron HCl 4 mg 05/03/22 16:33 05/03/22 16:35 Ondansetron Odt 4 Mg Tab.Rapdis TRANSLINGU 05/03/22 16:34 4 mg ONCE ONE Administration <JAMEY Olivares - Last Filed: 05/03/22 16:38> Medications Administered Discontinued Medications Generic Name Dose Route Start Last Admin Trade Name Aman PRN Reason Stop Dose Admin Ondansetron HCl 4 mg 05/03/22 16:33 05/03/22 16:35 Ondansetron Odt 4 Mg Tab.Rapdis TRANSLINGU 05/03/22 16:34 4 mg ONCE ONE Administration <Jass Epstein MD - Last Filed: 05/03/22 21:29> Medical Decision Making Medical Decision Making [facility] Narrative: 56-year-old female presents 1 week after head trauma. She is having right-sided headache. She has no focal neurologic deficits. Her symptoms are associated with nausea, vomiting, photophobia. She has no focal neurologic deficits. Her examination was unremarkable. Patient will have a CT scan of the head, laboratory analysis. We will re-evaluate the patient subsequently. <Jass Epstein MD - Last Filed: 05/03/22 21:29> Differential Diagnosis Differential Diagnoses: The differential diagnosis associated with the presentation includes ( Concussion, postconcussive syndrome, subdural hematoma, epidural hematoma, subarachnoid hemorrhage, viral syndrome, migraine headache, tension headache) <Jass Epstein MD - Last Filed: 05/03/22 21:29> post concussive syndrome <Jass Epstein MD - Last Filed: 05/03/22 21:29> Admission/Observation Consideration of admission/observation: Escalation of care including admission/observation considered <Jass Epstein MD - Last Filed: 05/03/22 21:29> Lab Data [facility] Lab Attestation statement: I reviewed the patient's lab results. <Jass Epstein MD - Last Filed: 05/03/22 21:29> Result Diagrams: 05/03/22 17:25 05/03/22 17:25 <JAMEY Olivares - Last Filed: 05/03/22 16:38> Labs: Lab Results 05/03/22 05/03/22 05/03/22 Range/Units 17:25 17:25 17:25 WBC 8.7 (4.8-10.8) X10*3/uL RBC 4.39 (4.20-5.50) X10*6/uL Hgb 12.4 (12.0-16.0) g/dl Hct 38.6 (37.0-47.0) % MCV 87.9 (80.0-98.0) fL MCH 28.2 (27.0-33.0) pg MCHC 32.1 (31.0-35.0) g/dl RDW 12.4 (11.0-16.0) % Plt Count 362 (160-400) X10*3/uL MPV 8.6 L (9.4-12.3) fL Immature Gran % (Auto) 0.5 H (0.0-0.4) % Neut % (Auto) 87.3 H (45-73) % Lymph % (Auto) 5.0 L (20-40) % Marshall % (Auto) 4.5 (2-11) % Eos % (Auto) 2.6 (0-4) % Baso % (Auto) 0.1 (0-2) % Lymph # (Auto) 0.4 L (1.2-4.9) X10*3/uL Marshall # (Auto) 0.4 (0.1-1.2) X10*3/uL Eos # (Auto) 0.2 (0.0-0.4) X10*3/uL Baso # (Auto) 0.0 (0.0-0.2) X10*3/uL Abs Immat Gran (auto) 0.04 H (0.00-0.03) X10*3/uL Absolute Neuts (auto) 7.6 (2.0-8.3) x10*3/uL Absolute Nucleated RBC 0.000 (0.0-0.012) X10*3/uL Nucleated RBC % (auto) 0.0 (0.0-0.2) /100WBC PT 13.7 H (10.0-13.1) SEC INR 1.2 H (0.9-1.1) Sodium 138 (135-145) mmol/L Potassium 4.3 (3.3-5.1) mmol/L Chloride 100 (96-108) mmol/L Carbon Dioxide 29 (22-29) mmol/L Anion Gap 13 (12-20) BUN 16 (9-16) mg/dL Creatinine 0.68 (0.5-1.4) mg/dL Estim Creat Clear Calc 92.6 Estimated GFR > 60 Random Glucose 111 (60-115) mg/dL Calcium 9.2 D (8.4-10.2) mg/dL Magnesium 1.8 (1.6-2.6) mg/dL Total Bilirubin 0.7 (0.0-1.0) mg/dL AST 28 (5-31) U/L ALT 28 (0-31) U/L Alkaline Phosphatase 180 H (39-117) U/L Total Protein 7.7 (6.5-8.0) g/dL Albumin 4.2 (3.5-5.0) g/dL Urine Color Urine Appearance Urine pH (5.0-9.0) Ur Specific [place] (1.005-1.025) Urine Protein (Neg-Trace) mg/dL Urine Glucose (UA) (Negative) mg/dL Urine Ketones (Negative) mg/dL Urine Blood (Negative) Urine Nitrite (Negative) Ur Leukocyte Esterase (Negative) Urine RBC (0-2) /HPF Urine WBC (0-5) /HPF Ur Squamous Epith Cells (0-2) /HPF Urine Bacteria (None Seen) Hyaline Casts (0-2) /LPF Influenza Type A (PCR) (Negative) Influenza Type B (PCR) (Negative) RSV RNA Qual (PCR) (Negative) SARS-CoV-2 RNA (RT-PCR) (Negative) 05/03/22 05/03/22 Range/Units 17:25 20:41 WBC (4.8-10.8) X10*3/uL RBC (4.20-5.50) X10*6/uL Hgb (12.0-16.0) g/dl Hct (37.0-47.0) % MCV (80.0-98.0) fL MCH (27.0-33.0) pg MCHC (31.0-35.0) g/dl RDW (11.0-16.0) % Plt Count (160-400) X10*3/uL MPV (9.4-12.3) fL Immature Gran % (Auto) (0.0-0.4) % Neut % (Auto) (45-73) % Lymph % (Auto) (20-40) % Marshall % (Auto) (2-11) % Eos % (Auto) (0-4) % Baso % (Auto) (0-2) % Lymph # (Auto) (1.2-4.9) X10*3/uL Marshall # (Auto) (0.1-1.2) X10*3/uL Eos # (Auto) (0.0-0.4) X10*3/uL Baso # (Auto) (0.0-0.2) X10*3/uL Abs Immat Gran (auto) (0.00-0.03) X10*3/uL Absolute Neuts (auto) (2.0-8.3) x10*3/uL Absolute Nucleated RBC (0.0-0.012) X10*3/uL Nucleated RBC % (auto) (0.0-0.2) /100WBC PT (10.0-13.1) SEC INR (0.9-1.1) Sodium (135-145) mmol/L Potassium (3.3-5.1) mmol/L Chloride (96-108) mmol/L Carbon Dioxide (22-29) mmol/L Anion Gap (12-20) BUN (9-16) mg/dL Creatinine (0.5-1.4) mg/dL Estim Creat Clear Calc Estimated GFR Random Glucose (60-115) mg/dL Calcium (8.4-10.2) mg/dL Magnesium (1.6-2.6) mg/dL Total Bilirubin (0.0-1.0) mg/dL AST (5-31) U/L ALT (0-31) U/L Alkaline Phosphatase (39-117) U/L Total Protein (6.5-8.0) g/dL Albumin (3.5-5.0) g/dL Urine Color Yellow Urine Appearance Clear Urine pH 5.5 (5.0-9.0) Ur Specific [place] 1.025 (1.005-1.025) Urine Protein Negative (Neg-Trace) mg/dL Urine Glucose (UA) Negative (Negative) mg/dL Urine Ketones Negative (Negative) mg/dL Urine Blood Negative (Negative) Urine Nitrite Negative (Negative) Ur Leukocyte Esterase Trace H (Negative) Urine RBC 0-2 (0-2) /HPF Urine WBC 0-5 (0-5) /HPF Ur Squamous Epith Cells 11-20 (0-2) /HPF Urine Bacteria 2+ (None Seen) Hyaline Casts 0-2 (0-2) /LPF Influenza Type A (PCR) NEGATIVE (Negative) Influenza Type B (PCR) NEGATIVE (Negative) RSV RNA Qual (PCR) NEGATIVE (Negative) SARS-CoV-2 RNA (RT-PCR) NEGATIVE (Negative) <JAMEY Olivares - Last Filed: 05/03/22 16:38> Lab Results 05/03/22 05/03/22 05/03/22 Range/Units 17:25 17:25 17:25 WBC 8.7 (4.8-10.8) X10*3/uL RBC 4.39 (4.20-5.50) X10*6/uL Hgb 12.4 (12.0-16.0) g/dl Hct 38.6 (37.0-47.0) % MCV 87.9 (80.0-98.0) fL MCH 28.2 (27.0-33.0) pg MCHC 32.1 (31.0-35.0) g/dl RDW 12.4 (11.0-16.0) % Plt Count 362 (160-400) X10*3/uL MPV 8.6 L (9.4-12.3) fL Immature Gran % (Auto) 0.5 H (0.0-0.4) % Neut % (Auto) 87.3 H (45-73) % Lymph % (Auto) 5.0 L (20-40) % Marshall % (Auto) 4.5 (2-11) % Eos % (Auto) 2.6 (0-4) % Baso % (Auto) 0.1 (0-2) % Lymph # (Auto) 0.4 L (1.2-4.9) X10*3/uL Marshall # (Auto) 0.4 (0.1-1.2) X10*3/uL Eos # (Auto) 0.2 (0.0-0.4) X10*3/uL Baso # (Auto) 0.0 (0.0-0.2) X10*3/uL Abs Immat Gran (auto) 0.04 H (0.00-0.03) X10*3/uL Absolute Neuts (auto) 7.6 (2.0-8.3) x10*3/uL Absolute Nucleated RBC 0.000 (0.0-0.012) X10*3/uL Nucleated RBC % (auto) 0.0 (0.0-0.2) /100WBC PT 13.7 H (10.0-13.1) SEC INR 1.2 H (0.9-1.1) Sodium 138 (135-145) mmol/L Potassium 4.3 (3.3-5.1) mmol/L Chloride 100 (96-108) mmol/L Carbon Dioxide 29 (22-29) mmol/L Anion Gap 13 (12-20) BUN 16 (9-16) mg/dL Creatinine 0.68 (0.5-1.4) mg/dL Estim Creat Clear Calc 92.6 Estimated GFR > 60 Random Glucose 111 (60-115) mg/dL Calcium 9.2 D (8.4-10.2) mg/dL Magnesium 1.8 (1.6-2.6) mg/dL Total Bilirubin 0.7 (0.0-1.0) mg/dL AST 28 (5-31) U/L ALT 28 (0-31) U/L Alkaline Phosphatase 180 H (39-117) U/L Total Protein 7.7 (6.5-8.0) g/dL Albumin 4.2 (3.5-5.0) g/dL Urine Color Urine Appearance Urine pH (5.0-9.0) Ur Specific [place] (1.005-1.025) Urine Protein (Neg-Trace) mg/dL Urine Glucose (UA) (Negative) mg/dL Urine Ketones (Negative) mg/dL Urine Blood (Negative) Urine Nitrite (Negative) Ur Leukocyte Esterase (Negative) Urine RBC (0-2) /HPF Urine WBC (0-5) /HPF Ur Squamous Epith Cells (0-2) /HPF Urine Bacteria (None Seen) Hyaline Casts (0-2) /LPF Influenza Type A (PCR) (Negative) Influenza Type B (PCR) (Negative) RSV RNA Qual (PCR) (Negative) SARS-CoV-2 RNA (RT-PCR) (Negative) 05/03/22 05/03/22 Range/Units 17:25 20:41 WBC (4.8-10.8) X10*3/uL RBC (4.20-5.50) X10*6/uL Hgb (12.0-16.0) g/dl Hct (37.0-47.0) % MCV (80.0-98.0) fL MCH (27.0-33.0) pg MCHC (31.0-35.0) g/dl RDW (11.0-16.0) % Plt Count (160-400) X10*3/uL MPV (9.4-12.3) fL Immature Gran % (Auto) (0.0-0.4) % Neut % (Auto) (45-73) % Lymph % (Auto) (20-40) % Marshall % (Auto) (2-11) % Eos % (Auto) (0-4) % Baso % (Auto) (0-2) % Lymph # (Auto) (1.2-4.9) X10*3/uL Marshall # (Auto) (0.1-1.2) X10*3/uL Eos # (Auto) (0.0-0.4) X10*3/uL Baso # (Auto) (0.0-0.2) X10*3/uL Abs Immat Gran (auto) (0.00-0.03) X10*3/uL Absolute Neuts (auto) (2.0-8.3) x10*3/uL Absolute Nucleated RBC (0.0-0.012) X10*3/uL Nucleated RBC % (auto) (0.0-0.2) /100WBC PT (10.0-13.1) SEC INR (0.9-1.1) Sodium (135-145) mmol/L Potassium (3.3-5.1) mmol/L Chloride (96-108) mmol/L Carbon Dioxide (22-29) mmol/L Anion Gap (12-20) BUN (9-16) mg/dL Creatinine (0.5-1.4) mg/dL Estim Creat Clear Calc Estimated GFR Random Glucose (60-115) mg/dL Calcium (8.4-10.2) mg/dL Magnesium (1.6-2.6) mg/dL Total Bilirubin (0.0-1.0) mg/dL AST (5-31) U/L ALT (0-31) U/L Alkaline Phosphatase (39-117) U/L Total Protein (6.5-8.0) g/dL Albumin (3.5-5.0) g/dL Urine Color Yellow Urine Appearance Clear Urine pH 5.5 (5.0-9.0) Ur Specific [place] 1.025 (1.005-1.025) Urine Protein Negative (Neg-Trace) mg/dL Urine Glucose (UA) Negative (Negative) mg/dL Urine Ketones Negative (Negative) mg/dL Urine Blood Negative (Negative) Urine Nitrite Negative (Negative) Ur Leukocyte Esterase Trace H (Negative) Urine RBC 0-2 (0-2) /HPF Urine WBC 0-5 (0-5) /HPF Ur Squamous Epith Cells 11-20 (0-2) /HPF Urine Bacteria 2+ (None Seen) Hyaline Casts 0-2 (0-2) /LPF Influenza Type A (PCR) NEGATIVE (Negative) Influenza Type B (PCR) NEGATIVE (Negative) RSV RNA Qual (PCR) NEGATIVE (Negative) SARS-CoV-2 RNA (RT-PCR) NEGATIVE (Negative) <Jass Epstein MD - Last Filed: 05/03/22 21:29> Independent Interpretation I performed an independent interpretation of an: EKG (Normal sinus rhythm heart rate 87, left axis deviation, left bundle- branch block, no acute ST elevations or depressions, no significant changes from August 03, 2021) and CT Scan ( head: No acute intracranial pathology) <Jass Epstein MD - Last Filed: 05/03/22 21:29> Radiology Impression Discussion of test interpretation with radiology: I have reviewed the radiologist's reading. (IMPRESSION: No acute intracranial pathology. Pansinusitis. Dictated By:Tri Holder MDSigned By:<Electronically signed by Tri Holder MD in [place]>05/03/22 1722) <Jass Epstein MD - Last Filed: 05/03/22 21:29> Discharge Plan Discharge Clinical Impression: Post concussion syndrome, History of left bundle branch block, Alkaline phosphatase elevation <JAMEY Olivares - Last Filed: 05/03/22 16:38> Patient Disposition: Home, Self-Care <JAMEY Olivares - Last Filed: 05/03/22 16:38> Instructions: Post Concussion Syndrome (ED) <JAMEY Olivares - Last Filed: 05/03/22 16:38> Additional Instructions: he recited today with headache, nausea, vomiting. Her examination was unremarkable. He had a CT scan which did not identify any acute intracranial process. There is no evidence of bleeding. Most likely her headache as a result of post concussive syndrome. This can happen after a trauma. For your symptoms, I am recommending Tylenol and ibuprofen as needed for pain and discomfort. You may use Zofran as needed for nausea. I am recommending close follow-up with her primary care provider. Should you have continued symptoms, I would recommend potential follow-up with a neurologist. Additionally, you had an ECG which identified a left bundle branch block. This is an abnormality of the electrical activity in your heart. This has been present in the past. If you have not had a workup for this, I am recommending a follow-up with her primary care provider for consideration of an echocardiogram and/ or a cardiac consultation. Finally, 1 of your lab test was at this tests: Alkaline phosphatase. You have had this elevation in the past. I would recommend following up with her primary care doctor in 1-2 weeks for repeat lab testing. <JAMEY Olivares - Last Filed: 05/03/22 16:38> Prescriptions: New ondansetron 4 mg tablet,disintegrating 4 mg PO Q8H PRN (Reason: nausea and vomiting) Qty: 10 0RF ibuprofen 600 mg tablet 600 mg PO Q8H PRN (Reason: pain) Qty: 14 0RF No Action ondansetron HCl [Zofran] 4 mg tablet 4 mg PO Q8H PRN (Reason: nausea and vomiting) Qty: 7 0RF metoprolol succinate [Toprol XL] 25 mg tablet extended release 24 hr 25 mg PO DAILY Qty: 30 1RF albuterol sulfate [ProAir HFA] 90 mcg/actuation HFA aerosol inhaler 2 puff inhalation Q4-6H PRN (Reason: Wheezing) Qty: 8.5 0RF hydrochlorothiazide 12.5 mg tablet 12.5 mg PO DAILY cetirizine 10 mg tablet 10 mg PO DAILY pseudoephedrine HCl [Sudogest] 30 mg tablet 60 mg PO Q4-6H PRN hydroxyzine HCl 25 mg tablet 25 - 50 mg PO Q6H PRN (Reason: anxiety) clonidine HCl 0.1 mg tablet 0.1 mg PO BID naloxone [Narcan] 4 mg/actuation spray,non-aerosol 0 spray intranasal loperamide [Anti-Diarrheal (loperamide)] 2 mg tablet 2 mg PO Q4H PRN (Reason: diarrhea) Anoro Ellipta 62.5-25 mcg/actuation blister with device 1 inh inhalation DAILY 30 Days Qty: 1 6RF <JAMEY Olivares - Last Filed: 05/03/22 16:38>
[2022-05-03] MEDS: Ondansetron ODT 4 MG TAB.RAPDIS TRANSLINGU ×2 (16:35→21:26)
--- NOTE | 2022-05-03 16:37 | ECG_ITS ---
Test Reason : DIZZINESS Blood Pressure : / mmHG Vent. Rate : 087 BPM Atrial Rate : 087 BPM P-R Int : 148 ms QRS Dur : 134 ms QT Int : 394 ms P-R-T Axes : 045 -34 094 degrees QTc Int : 474 ms Normal sinus rhythm Left axis deviation Left bundle branch block Abnormal ECG When compared with ECG of 03-AUG-2021 20:28, No significant change was found Referred By: Roma Martinez Electronically Signed By:KELLY VIGIL MD
[2022-05-03 17:31] LABS: Basophils Percent Auto 0.1 % (0-2); Eosinophils Absolute Auto 0.2 X10*3/uL (0.0-0.4); Eosinophils Percent Auto 2.6 % (0-4); Hematocrit 38.6 % (37.0-47.0); Hemoglobin 12.4 g/dl (12.0-16.0); Imm Gran Abs Auto 0.04 X10*3/uL (0.00-0.03); Imm Gran Pct Auto 0.5 % (0.0-0.4); Lymphocytes Absolute Auto 0.4 X10*3/uL (1.2-4.9); MANUAL DIFF FLAG NO; Mean Corpuscular HGB Conc 32.1 g/dl (31.0-35.0); Mean Corpuscular Hemoglobin 28.2 pg (27.0-33.0); Mean Corpuscular Volume 87.9 fL (80.0-98.0); Mean Platelet Volume 8.6 fL (9.4-12.3); Monocytes Absolute Auto 0.4 X10*3/uL (0.1-1.2); Monocytes Percent Auto 4.5 % (2-11); Neutrophils Absolute Auto 7.6 x10*3/uL (2.0-8.3); Neutrophils Percent Auto 87.3 % (45-73); Platelet Count 362 X10*3/uL (160-400); Red Blood Count 4.39 X10*6/uL (4.20-5.50); Red Cell Distribution Width 12.4 % (11.0-16.0); White Blood Count 8.7 X10*3/uL (4.8-10.8)
[2022-05-03 17:37] LABS: INTERNATIONAL NORM RATIO 1.2 (0.9-1.1); Prothrombin Time 13.7 SEC (10.0-13.1)
[2022-05-03 17:52] LABS: Alanine Aminotransferase 28 U/L (0-31); Albumin Level 4.2 g/dL (3.5-5.0); Alkaline Phosphatase 180 U/L (39-117); Anion Gap 13 (12-20); Aspartate Amino Transferase 28 U/L (5-31); Bilirubin Total 0.7 mg/dL (0.0-1.0); Blood Urea Nitrogen 16 mg/dL (9-16); Calcium 9.2 mg/dL (8.4-10.2); Carbon Dioxide 29 mmol/L (22-29); Chloride 100 mmol/L (96-108); Creatinine Clr Calc Pharmacy 92.6; Estimated Glomerular Filt Rate > 60; Glucose Random 111 mg/dL (60-115); Magnesium 1.8 mg/dL (1.6-2.6); Potassium 4.3 mmol/L (3.3-5.1); Sodium 138 mmol/L (135-145); Total Protein 7.7 g/dL (6.5-8.0)
[2022-05-03 18:19] LABS: Influenza A PCR NEGATIVE (Negative); Influenza B PCR NEGATIVE (Negative); Resp Syncy Virus RNA Qual PCR NEGATIVE (Negative); SARS COV2 PCR INHOUSE NEGATIVE (Negative)
--- NOTE | 2022-05-03 20:39 | PC.NURSE ---
pt states she has had n/v and headache for about 2 weeks
[2022-05-03 20:53] LABS: Appearance Urine Clear; Color Urine Yellow; Glucose Urine UA Negative (Negative); Leukocyte Esterase Urine Trace (Negative); Nitrite Urine Negative (Negative); PH 5.5 (5.0-9.0); Specific Gravity - Urine 1.025 (1.005-1.025); UMIC TRIGGER UACC YES; Urine Blood Negative (Negative); Urine Ketones Negative (Negative); Urine Protein Negative (Neg-Trace)
[2022-05-03 20:56] LABS: Bacteria Urine 2+ (None Seen); Hyaline Casts Urine 0-2 /LPF (0-2); RBC Urine 0-2 /HPF (0-2); WBC Urine 0-5 /HPF (0-5)
[2022-05-03 21:02] VITALS: BP 104/52; PULSE 95; RESP 20; TEMP 37; O2SAT 95
[2022-05-03] MEDS: Ibuprofen 600 MG TABLET PO (21:25)
[2022-05-03] MEDS: Acetaminophen 325 MG TABLET 975 MG PO (21:25)
--- NOTE | 2022-05-03 21:40 | PC.NURSE ---
pt left prior to being given discharge paperwork; prior to her leaving no sob, no respiratory distress, able to speak in full sentences, ambulated to restroom independently/safely
== END 2022-05-03 21:42 | disposition home or self-care (01) ==
PROVIDERS: Physician Assistant Medical; Emergency Provider Emergency Medicine
DX: G44.309 Post-traumatic headache, unspecified, not intractable (principal); F07.81 Postconcussional syndrome; I44.7 Left bundle-branch block, unspecified; E83.39 Other disorders of phosphorus metabolism
CPT/HCPCS: 0241U; 70450; 80053; 81001; 83735; 85025; 85610; 93005; 99284; 99285

== ENCOUNTER 2022-05-07 12:55 | Outpatient (REF) | payer MEDICAID, SELFPAY ==
--- NOTE | ~2022-05-07 | CT_ITS ---
EXAMINATION: CT HEAD WITHOUT CONTRAST CLINICAL INFORMATION: Blunt head trauma COMPARISON: Previous head CT 05/03/2022 TECHNIQUE: Contiguous axial imaging was performed from the skull base to vertex without intravenous administration of contrast. This CT examination was performed using dose optimization techniques as appropriate, variously including the following: *Automated exposure control *Adjustment of mA and/or kV according to patient size (this includes techniques or standardized protocols for targeted exams where dose is matched to indication/reason for exam; i.e. extremities or head) *Use of iterative reconstruction technique DLP: 709 mGy-cm FINDINGS: There is no evidence of an extra-axial collection. There is no evidence of intra or extra-axial hemorrhage. The ventricles and extra-axial CSF spaces are appropriate. Rutherford-white matter differentiation is normal. No mass, mass effect or infarct. Pansinusitis. No skull fracture. CT/CT head/brain wo IV con IMPRESSION: No acute intracranial findings. Pansinusitis.
== END 2022-05-07 12:56 | disposition home or self-care (01) ==
LOC: HO.CT 12:55
PROVIDERS: Visit Provider Emergency Medicine
DX: S09.8XXA Other specified injuries of head, initial encounter (principal); R11.0 Nausea
CPT/HCPCS: 70450

== ENCOUNTER 2022-07-22 12:36 | Emergency (ER) | payer MEDICAID, SELFPAY ==
--- NOTE | ~2022-07-22 | XR_ITS ---
EXAMINATION: XR CHEST CLINICAL INFORMATION: Chest pain COMPARISON: Chest radiographs 08/03/2021, 12/19/2020, 11/21/2019, CT chest noncontrast 09/04/2021. TECHNIQUE: 2 views of the chest were obtained. FINDINGS: No pneumothorax, pleural reaction, infiltrate, or effusion. The costophrenic sulci are well-defined. The heart is within normal size and the hilar contours are normal. 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 No free air beneath the diaphragms. XR/XR chest 2V IMPRESSION: -Lungs clear. No pneumothorax, infiltrate, or effusion. 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
[2022-07-22 12:40] VITALS: BP 119/87; PULSE 102; RESP 18; TEMP 36; O2SAT 95; BMI 31.2
--- NOTE | 2022-07-22 12:41 | ED.CHESTPAIN ---
HPI - Chest Pain General Chief Complaint: Chest Pain Stated Complaint: CP R Knee Swollen Related Data Home Medications Medication Instructions Recorded Confirmed cetirizine 10 mg tablet 10 mg PO DAILY 08/28/21 clonidine HCl 0.1 mg tablet 0.1 mg PO BID 08/28/21 hydrochlorothiazide 12.5 mg tablet 12.5 mg PO DAILY 08/28/21 hydroxyzine HCl 25 mg tablet 25 - 50 mg PO Q6H PRN anxiety 08/28/21 loperamide 2 mg tablet 2 mg PO Q4H PRN diarrhea 08/28/21 (Anti-Diarrheal (loperamide)) naloxone 4 mg/actuation nasal 0 spray intranasal 08/28/21 spray (Narcan) pseudoephedrine HCl 30 mg tablet 60 mg PO Q4-6H PRN 08/28/21 (Sudogest) Previous Rx's Medication Instructions Recorded ondansetron HCl 4 mg tablet 4 mg PO Q8H PRN nausea and 10/27/20 (Zofran) vomiting #7 tabs albuterol sulfate 90 mcg/actuation 2 puff inhalation Q4-6H PRN 12/19/20 aerosol inhaler (ProAir HFA) Wheezing #8.5 grams metoprolol succinate 25 mg 25 mg PO DAILY #30 tabs 05/13/21 tablet,extended release 24 hr (Toprol XL) umeclidinium 62.5 mcg-vilanterol 1 inh inhalation DAILY 30 days #1 08/28/21 25 mcg/actuation powdr for ea inhalation (Anoro Ellipta) ibuprofen 600 mg tablet 600 mg PO Q8H PRN pain #14 tabs 05/03/22 ondansetron 4 mg disintegrating 4 mg PO Q8H PRN nausea and 05/03/22 tablet vomiting #10 tabs Allergies Allergy/AdvReac Type Severity Reaction Status Date / Time lisinopril Allergy Severe Angioedema Verified 07/22/22 12:40 hydroxyzine [HYDROXYZINE] AdvReac Intermediate reports Verified 07/22/22 12:40 redness and swelling PMFSH Past Medical History Medical History Angioedema Anxiety Asthma Chronic back pain Chronic knee pain Depression History of alcohol dependence History of fatty infiltration of liver History of heroin use History of left bundle branch block (LBBB) History of opioid abuse History of panic disorder History of seizure HTN (hypertension) Left against medical advice Migraine Surgical History Hx of colonoscopy Hx of exploratory laparotomy Social History Social History Household Members: None Housing: House Do you presently have visiting nurse or other home services: No Alcohol intake: never Patient Tobacco Use Status: Never used Tobacco Substance Use Type: Heroin, Opiates and Painkillers service: No Current occupational status: unemployed Physical Exam Vital Signs: Vital Signs: Last Vital Signs Temp 96.8 F 07/22/22 12:40 Pulse 102 H 07/22/22 12:40 Resp 18 07/22/22 12:40 BP 119/87 07/22/22 12:40 Pulse Ox 95 07/22/22 12:40 O2 Del Method Room Air 07/22/22 12:40 BMI result Body Mass Index 31.2 Course Course Course Narrative: RME - 56 yo female with history of heroin use, osteoarthritis, angioedema, esophagitis, gastroparesis, constipation who presents to ER for evaluation of intermittent, nonradiating, sharp, central chest pains that started at 6am today at rest. +nausea, no SOB. Reports just finding out she has a heart murmur last week when went to [facility] for chest pains. Plan: EKG, CXR, lab workup Reevaluation(s) Reevaluation #1: patient eloped from the ER prior to discussion of results and findings. Medical Decision Making Lab Data 07/22/22 13:35 07/22/22 13:35 Labs: Lab Results 07/22/22 07/22/22 07/22/22 Range/Units 13:35 13:35 13:35 WBC 6.8 (4.8-10.8) X10*3/uL RBC 4.57 (4.20-5.50) X10*6/uL Hgb 12.5 (12.0-16.0) g/dl Hct 38.8 (37.0-47.0) % MCV 84.9 (80.0-98.0) fL MCH 27.4 (27.0-33.0) pg MCHC 32.2 (31.0-35.0) g/dl RDW 12.9 (11.0-16.0) % Plt Count 333 (160-400) X10*3/uL MPV 8.8 L (9.4-12.3) fL Immature Gran % (Auto) 0.1 (0.0-0.4) % Neut % (Auto) 55.4 (45-73) % Lymph % (Auto) 27.8 (20-40) % Christian % (Auto) 6.9 (2-11) % Eos % (Auto) 8.8 H (0-4) % Baso % (Auto) 1.0 (0-2) % Lymph # (Auto) 1.9 (1.2-4.9) X10*3/uL Christian # (Auto) 0.5 (0.1-1.2) X10*3/uL Eos # (Auto) 0.6 H (0.0-0.4) X10*3/uL Baso # (Auto) 0.1 (0.0-0.2) X10*3/uL Abs Immat Gran (auto) 0.01 (0.00-0.03) X10*3/uL Absolute Neuts (auto) 3.8 (2.0-8.3) x10*3/uL Absolute Nucleated RBC 0.000 (0.0-0.012) X10*3/uL Nucleated RBC % (auto) 0.0 (0.0-0.2) /100WBC Sodium 137 (135-145) mmol/L Potassium 3.7 (3.3-5.1) mmol/L Chloride 101 (96-108) mmol/L Carbon Dioxide 27 (22-29) mmol/L Anion Gap 13 (12-20) BUN 12 (9-16) mg/dL Creatinine 0.67 (0.5-1.4) mg/dL Estim Creat Clear Calc 94.9 Estimated GFR > 60 Random Glucose 110 (60-115) mg/dL Calcium 9.4 (8.4-10.2) mg/dL Magnesium 1.8 (1.6-2.6) mg/dL Total Bilirubin 0.6 (0.0-1.0) mg/dL Direct Bilirubin 0.2 (0.0-0.5) mg/dL AST 18 (5-31) U/L ALT 16 (0-31) U/L Alkaline Phosphatase 157 H (39-117) U/L Troponin I High Sens < 2.7 (<3.5-17.0) ng/L Total Protein 7.7 (6.5-8.0) g/dL Albumin 4.2 (3.5-5.0) g/dL Ethyl Alcohol mg/dL 07/22/22 Range/Units 13:35 WBC (4.8-10.8) X10*3/uL RBC (4.20-5.50) X10*6/uL Hgb (12.0-16.0) g/dl Hct (37.0-47.0) % MCV (80.0-98.0) fL MCH (27.0-33.0) pg MCHC (31.0-35.0) g/dl RDW (11.0-16.0) % Plt Count (160-400) X10*3/uL MPV (9.4-12.3) fL Immature Gran % (Auto) (0.0-0.4) % Neut % (Auto) (45-73) % Lymph % (Auto) (20-40) % Christian % (Auto) (2-11) % Eos % (Auto) (0-4) % Baso % (Auto) (0-2) % Lymph # (Auto) (1.2-4.9) X10*3/uL Christian # (Auto) (0.1-1.2) X10*3/uL Eos # (Auto) (0.0-0.4) X10*3/uL Baso # (Auto) (0.0-0.2) X10*3/uL Abs Immat Gran (auto) (0.00-0.03) X10*3/uL Absolute Neuts (auto) (2.0-8.3) x10*3/uL Absolute Nucleated RBC (0.0-0.012) X10*3/uL Nucleated RBC % (auto) (0.0-0.2) /100WBC Sodium (135-145) mmol/L Potassium (3.3-5.1) mmol/L Chloride (96-108) mmol/L Carbon Dioxide (22-29) mmol/L Anion Gap (12-20) BUN (9-16) mg/dL Creatinine (0.5-1.4) mg/dL Estim Creat Clear Calc Estimated GFR Random Glucose (60-115) mg/dL Calcium (8.4-10.2) mg/dL Magnesium (1.6-2.6) mg/dL Total Bilirubin (0.0-1.0) mg/dL Direct Bilirubin (0.0-0.5) mg/dL AST (5-31) U/L ALT (0-31) U/L Alkaline Phosphatase (39-117) U/L Troponin I High Sens (<3.5-17.0) ng/L Total Protein (6.5-8.0) g/dL Albumin (3.5-5.0) g/dL Ethyl Alcohol 19 mg/dL Discharge Plan Discharge Clinical Impression: Chest pain Patient Disposition: Elopement Prescriptions: No Action ondansetron HCl [Zofran] 4 mg tablet 4 mg PO Q8H PRN (Reason: nausea and vomiting) Qty: 7 0RF metoprolol succinate [Toprol XL] 25 mg tablet extended release 24 hr 25 mg PO DAILY Qty: 30 1RF ondansetron 4 mg tablet,disintegrating 4 mg PO Q8H PRN (Reason: nausea and vomiting) Qty: 10 0RF ibuprofen 600 mg tablet 600 mg PO Q8H PRN (Reason: pain) Qty: 14 0RF albuterol sulfate [ProAir HFA] 90 mcg/actuation HFA aerosol inhaler 2 puff inhalation Q4-6H PRN (Reason: Wheezing) Qty: 8.5 0RF hydrochlorothiazide 12.5 mg tablet 12.5 mg PO DAILY cetirizine 10 mg tablet 10 mg PO DAILY pseudoephedrine HCl [Sudogest] 30 mg tablet 60 mg PO Q4-6H PRN hydroxyzine HCl 25 mg tablet 25 - 50 mg PO Q6H PRN (Reason: anxiety) clonidine HCl 0.1 mg tablet 0.1 mg PO BID naloxone [Narcan] 4 mg/actuation spray,non-aerosol 0 spray intranasal loperamide [Anti-Diarrheal (loperamide)] 2 mg tablet 2 mg PO Q4H PRN (Reason: diarrhea) Anoro Ellipta 62.5-25 mcg/actuation blister with device 1 inh inhalation DAILY 30 Days Qty: 1 6RF Interventions: ED Discharge Assessment Last Done: 07/22/22 21:13 Discharge Date/Time: 07/22/22 21:13
--- NOTE | 2022-07-22 12:43 | ECG_ITS ---
Test Reason : chest pain Blood Pressure : / mmHG Vent. Rate : 085 BPM Atrial Rate : 085 BPM P-R Int : 148 ms QRS Dur : 138 ms QT Int : 412 ms P-R-T Axes : 059 -36 093 degrees QTc Int : 490 ms Normal sinus rhythm Left axis deviation Left bundle branch block Abnormal ECG When compared with ECG of 03-MAY-2022 17:12, No significant change was found Referred By: Yessy Ardon Electronically Signed By:KELLY VIGIL MD
[2022-07-22 13:40] LABS: MANUAL DIFF FLAG NO
[2022-07-22 13:46] LABS: Basophils Absolute Auto 0.1 X10*3/uL (0.0-0.2); Eosinophils Absolute Auto 0.6 X10*3/uL (0.0-0.4); Eosinophils Percent Auto 8.8 % (0-4); Hematocrit 38.8 % (37.0-47.0); Hemoglobin 12.5 g/dl (12.0-16.0); Imm Gran Abs Auto 0.01 X10*3/uL (0.00-0.03); Imm Gran Pct Auto 0.1 % (0.0-0.4); Lymphocytes Absolute Auto 1.9 X10*3/uL (1.2-4.9); Lymphocytes Percent Auto 27.8 % (20-40); Mean Corpuscular HGB Conc 32.2 g/dl (31.0-35.0); Mean Corpuscular Hemoglobin 27.4 pg (27.0-33.0); Mean Corpuscular Volume 84.9 fL (80.0-98.0); Mean Platelet Volume 8.8 fL (9.4-12.3); Monocytes Absolute Auto 0.5 X10*3/uL (0.1-1.2); Monocytes Percent Auto 6.9 % (2-11); Neutrophils Absolute Auto 3.8 x10*3/uL (2.0-8.3); Neutrophils Percent Auto 55.4 % (45-73); Platelet Count 333 X10*3/uL (160-400); Red Blood Count 4.57 X10*6/uL (4.20-5.50); Red Cell Distribution Width 12.9 % (11.0-16.0); White Blood Count 6.8 X10*3/uL (4.8-10.8)
[2022-07-22 13:59] LABS: Ethanol 19 mg/dL
[2022-07-22 14:02] LABS: Alanine Aminotransferase 16 U/L (0-31); Albumin Level 4.2 g/dL (3.5-5.0); Alkaline Phosphatase 157 U/L (39-117); Anion Gap 13 (12-20); Aspartate Amino Transferase 18 U/L (5-31); Bilirubin Direct 0.2 mg/dL (0.0-0.5); Bilirubin Total 0.6 mg/dL (0.0-1.0); Blood Urea Nitrogen 12 mg/dL (9-16); Calcium 9.4 mg/dL (8.4-10.2); Carbon Dioxide 27 mmol/L (22-29); Chloride 101 mmol/L (96-108); Creatinine Clr Calc Pharmacy 94.9; Estimated Glomerular Filt Rate > 60; Glucose Random 110 mg/dL (60-115); Magnesium 1.8 mg/dL (1.6-2.6); Potassium 3.7 mmol/L (3.3-5.1); Sodium 137 mmol/L (135-145); Total Protein 7.7 g/dL (6.5-8.0)
[2022-07-22 14:13] LABS: Troponin-I High Sensitivity < 2.7 ng/L (<3.5-17.0)
== END 2022-07-22 21:13 | disposition left against medical advice (07) ==
LOC: HO.ED 20:58
PROVIDERS: Physician Assistant; Emergency Provider Emergency Medicine
DX: R07.89 Other chest pain (principal); M25.461 Effusion, right knee; Z79.899 Other long term (current) drug therapy
CPT/HCPCS: 36415; 71046; 80048; 80076; 80307; 83735; 84484; 85025; 93005; 99282; 99283

== ENCOUNTER 2022-08-04 16:33 | Emergency (ER) | payer MEDICAID, SELFPAY ==
--- NOTE | 2022-08-04 16:42 | ED.GENADULT ---
HPI - General Adult General Chief complaint: Animal Bite Stated complaint: leg lac Time Seen by Provider: 08/04/22 16:42 Source: patient and EMS Mode of arrival: EMS Limitations: no limitations History of Present Illness HPI narrative: Patient is a 57 year old assigned female at with a history of KENDRA presenting to the emergency department today with a dog bite to her right lower leg. Patient states that she was at her friends when she got bit on her right lower leg by a pitbull. Patient states that the friend claims the dog is up to date but she really isn't sure. Patient states that she does not know when her last tetanus was. Patient denies any dizziness, lightheadedness, abdominal pain, nausea, vomiting, fever, chills, blurry vision, double vision, loss of vision, chest pain, difficulty breathing, shortness of breath, back pain, night sweats, pain with urination, increased urinary frequency, increased urinary urgency, blood in her urine or stool, syncope or a near syncopal episode, bowel incontinence, bladder incontinence, bowel retention, bladder retention, or any other complaints at this time. Onset (ago): minute(s) Location: right and lower extremity Radiation: non-radiation Severity: mild Severity scale (1-10): 3 Relieving factors: none Exacerbating factors: none Associated symptoms: denies other symptoms Treatments prior to arrival: none Related Data Home Medications Medication Instructions Recorded Confirmed cetirizine 10 mg tablet 10 mg PO DAILY 08/28/21 clonidine HCl 0.1 mg tablet 0.1 mg PO BID 08/28/21 hydrochlorothiazide 12.5 mg tablet 12.5 mg PO DAILY 08/28/21 hydroxyzine HCl 25 mg tablet 25 - 50 mg PO Q6H PRN anxiety 08/28/21 loperamide 2 mg tablet 2 mg PO Q4H PRN diarrhea 08/28/21 (Anti-Diarrheal (loperamide)) naloxone 4 mg/actuation nasal 0 spray intranasal 08/28/21 spray (Narcan) pseudoephedrine HCl 30 mg tablet 60 mg PO Q4-6H PRN 08/28/21 (Sudogest) Previous Rx's Medication Instructions Recorded ondansetron HCl 4 mg tablet 4 mg PO Q8H PRN nausea and 10/27/20 (Zofran) vomiting #7 tabs albuterol sulfate 90 mcg/actuation 2 puff inhalation Q4-6H PRN 12/19/20 aerosol inhaler (ProAir HFA) Wheezing #8.5 grams metoprolol succinate 25 mg 25 mg PO DAILY #30 tabs 05/13/21 tablet,extended release 24 hr (Toprol XL) umeclidinium 62.5 mcg-vilanterol 1 inh inhalation DAILY 30 days #1 08/28/21 25 mcg/actuation powdr for ea inhalation (Anoro Ellipta) ibuprofen 600 mg tablet 600 mg PO Q8H PRN pain #14 tabs 05/03/22 ondansetron 4 mg disintegrating 4 mg PO Q8H PRN nausea and 05/03/22 tablet vomiting #10 tabs amoxicillin 875 mg-potassium 1 tab PO BID 7 days #14 tabs 08/04/22 clavulanate 125 mg tablet Allergies Allergy/AdvReac Type Severity Reaction Status Date / Time lisinopril Allergy Severe Angioedema Verified 07/22/22 12:40 hydroxyzine [HYDROXYZINE] AdvReac Intermediate reports Verified 07/22/22 12:40 redness and swelling Review of Systems Constitutional: Constitutional: Reports no additional constitutional complaints, Denies chills, Denies fever(s) and Denies night sweats Eyes: Eyes: Reports no additional eye complaints, Denies blurry vision, Denies change in vision, Denies diplopia, Denies eye discharge, Denies loss of vision and Denies eye pain ENT: Denies dizziness Cardiovascular: Cardiovascular: Reports no additional cardiovascular complaints, Denies chest pain, Denies lightheadedness, Denies Loss of Consciousness and Denies dyspnea Respiratory: Respiratory: Reports no additional respiratory complaints and Denies dyspnea Gastrointestinal: Gastrointestinal: Reports no additional gastrointestinal complaints, Denies abdominal pain, Denies melena, Denies hematochezia, Denies change in bowel habits and Denies change in stool character Genitourinary: Genitourinary: Denies hematuria, Denies urinary frequency, Denies dysuria, Denies urinary incontinence, Denies urinary hesitancy and Denies urinary urgency Musculoskeletal: Musculoskeletal: Reports no additional musculoskeletal complaints, Denies numbness and Denies tingling Comments: right lower leg dog bite Neurologic: Denies dizziness, Denies loss of vision, Denies numbness and Denies tingling Psychiatric: Psychiatric: Reports no additional psychiatric complaints Endocrine: Endocrine: Reports no additional endocrine complaints Hematologic/Lymphatic: Hematologic/Lymphatic: Reports no additional hematologic/lymphatic complaints Allergic/Immunologic: Allergic/Immunologic: Reports no additional allergic/immunologic complaints PMFSH Past Medical History Attestation statement: The following information was validated with the patient. Source: old records reviewed and nursing notes reviewed Medical History Angioedema Anxiety Asthma Chronic back pain Chronic knee pain Depression History of alcohol dependence History of fatty infiltration of liver History of heroin use History of left bundle branch block (LBBB) History of opioid abuse History of panic disorder History of seizure HTN (hypertension) Left against medical advice Migraine Surgical History Hx of colonoscopy Hx of exploratory laparotomy Social History Social History Household Members: None Housing: House Do you presently have visiting nurse or other home services: No Alcohol intake: never Patient Tobacco Use Status: Never used Tobacco Substance Use Type: Heroin, Opiates and Painkillers Advance Directives: No Advance Directives Information Provided: Yes service: No Current occupational status: unemployed Physical Exam ED Vital Signs: Vital Signs - 24 hr 08/04/22 16:45 Temperature 98.7 F Pulse Rate 98 Respiratory Rate 18 Blood Pressure 148/76 H Pulse Oximetry 97 Oxygen Delivery Method Room Air BMI result Body Mass Index 39.6 Const General: cooperative, no acute distress, alert and awake Nutritional Appearance: well nourished Orientation/consciousness: patient oriented x3 Limitations: no limitations [facility] Head: Yes normal to inspection and Yes atraumatic Ears: hearing grossly normal bilaterally and external ears normal General nose exam: Normal external nose present, no nasal discharge noted and no epistaxis Face and sinus: Yes normal facial exam, No abrasion and No laceration Mouth: Normal oral and palatal mucosa present, no drooling and no muffled voice Eyes General: appearance normal, both eyes and all related structures Periorbital: periorbital findings normal Eyelids: Yes eyelids normal Conjunctivae: conjunctivae normal Pupils: Equal, round and reactive pupils present EOM: EOMs intact bilaterally Neck Neck: Yes normal visual inspection, Yes full ROM and Yes no lymphadenopathy Chest Chest palpation & inspection: normal inspection of the chest Resp Effort & Inspection: normal respiratory effort and able to speak in complete sentences GI Inspection: Yes normal to inspection Neuro General: patient oriented x3 and moves all extremities Cranial nerves: Yes Equal, round and reactive pupils present Cognition (Neuro): normal cognition Motor exam (neuro): 5/5 motor strength present throughout Sensory Exam: Normal double simultaneous stimulation for sensation Coordination: [id number] test normal Extrem Other: 4 small puncture wounds present to the left posterior lower leg, no active bleeding, no gaping, minimal bruising surrounding the puncture wounds General: Yes full ROM and Yes capillary refill normal Psych Appearance: grossly normal Mental Status: mental status grossly normal Affect: normal affect Attitude: cooperative Thought process: Normal thought process present Thought content: Normal thought content present Insight: Good insight present (Psych) Medical Decision Making Medical Decision Making MDM Narrative: Patient is a 57 year old assigned female at with a history of KENDRA presenting to the emergency department today with a dog bite. Patient's physical exam was as noted in the physical exam portion of this chart. I explained my physical exam findings as well to the patient. I answered all questions asked by the patient. Patient was brought up to date on tetanus, given rabies vaccinations, and her first dose of augmentin. I stressed the importance of the patient taking her medication as prescribed. I stressed the importance of the patient following up with her primary care provider. I stressed the importance of the patient returning to the emergency department immediately if her symptoms were to worsen or if she were to develop any dizziness, shortness of breath, difficulty breathing, chest pain, blurry vision, loss of vision, nausea, vomiting, abdominal pain, fever, chills, back pain, or any other complaints. Patient verbalized agreement and understanding with this treatment plan and discharge. Differential Diagnosis Differential Diagnoses: The differential diagnosis associated with the presentation includes dog bite to the right lower leg Discharge Plan Discharge Clinical Impression: Dog bite Patient Disposition: Home, Self-Care Instructions: Animal Bite (ED), Rabies (ED) Additional Instructions: Follow up with your primary care provider. Return to the emergency department immediately if your symptoms worsen or if you develop any dizziness, shortness of breath, difficulty breathing, chest pain, blurry vision, loss of vision, nausea, vomiting, abdominal pain, fever, chills, back pain, or any other complaints. Call Medical Day Stay tomorrow at [phone] to schedule an appointment to receive the remainder of your required Rabies Vaccines. You will need a total of 3 more injections. Bring the Rabies Vaccine Order Set sheet and your Rabies Vaccination Record with you to these appointments. If the day you are supposed to come back for the rabies vaccine falls on a weekend or a holiday, proceed to the Emergency Department to receive the required vaccination. Follow up with your primary care provider after completion of the vaccine to have a titer drawn to ensure the vaccines effectiveness. Prescriptions: New amoxicillin-pot clavulanate 875-125 mg tablet 1 tab PO BID 7 Days Qty: 14 0RF No Action ondansetron HCl [Zofran] 4 mg tablet 4 mg PO Q8H PRN (Reason: nausea and vomiting) Qty: 7 0RF metoprolol succinate [Toprol XL] 25 mg tablet extended release 24 hr 25 mg PO DAILY Qty: 30 1RF ondansetron 4 mg tablet,disintegrating 4 mg PO Q8H PRN (Reason: nausea and vomiting) Qty: 10 0RF ibuprofen 600 mg tablet 600 mg PO Q8H PRN (Reason: pain) Qty: 14 0RF albuterol sulfate [ProAir HFA] 90 mcg/actuation HFA aerosol inhaler 2 puff inhalation Q4-6H PRN (Reason: Wheezing) Qty: 8.5 0RF hydrochlorothiazide 12.5 mg tablet 12.5 mg PO DAILY cetirizine 10 mg tablet 10 mg PO DAILY pseudoephedrine HCl [Sudogest] 30 mg tablet 60 mg PO Q4-6H PRN hydroxyzine HCl 25 mg tablet 25 - 50 mg PO Q6H PRN (Reason: anxiety) clonidine HCl 0.1 mg tablet 0.1 mg PO BID naloxone [Narcan] 4 mg/actuation spray,non-aerosol 0 spray intranasal loperamide [Anti-Diarrheal (loperamide)] 2 mg tablet 2 mg PO Q4H PRN (Reason: diarrhea) Anoro Ellipta 62.5-25 mcg/actuation blister with device 1 inh inhalation DAILY 30 Days Qty: 1 6RF Referrals: [facility] Family Medicine [Provider Group] (Call to establish and follow up with a primary care provider. If you already have a primary care provider, please follow up with them.) [facility] [Provider Group] (Call to establish and follow up with a primary care provider. If you already have a primary care provider, please follow up with them.) [facility] [Provider Group] (Call to establish and follow up with a primary care provider. If you already have a primary care provider, please follow up with them.) Stand Alone Forms: Work/School Release Print Language: Vincentian
[2022-08-04 16:44] VITALS: BP 150/74; PULSE 103; O2SAT 96
[2022-08-04 16:45] VITALS: BP 148/76; PULSE 98; RESP 18; TEMP 37.1; O2SAT 97; BMI 39.6
[2022-08-04] MEDS: Rabies Immune Globulin/PF 900 UNIT/3 ML VIAL 1964 UNIT IM (17:24)
[2022-08-04] MEDS: Amoxicillin/Potassium Clav 875 MG TABLET PO (17:24)
[2022-08-04] MEDS: Diphth,Pertus(ACell),Tet Adult 0.5 ML SYRINGE IM (17:25)
--- NOTE | 2022-08-04 17:47 | PC.NURSE ---
pt medicated per MAR - rabies order set faxed to [facility], and Pharmacy (see confirmation in binder) pt verbalizes understanding that she will need to follow up woth [facility] for subsequent injections
== END 2022-08-04 17:49 | disposition home or self-care (01) ==
PROVIDERS: Emergency Provider Emergency Medicine
DX: S81.851A Open bite, right lower leg, initial encounter (principal); W54.0XXA Bitten by dog, initial encounter; Y93.89 Activity, other specified; Y92.039 Unspecified place in apartment as the place of occurrence of the external cause; Y99.9 Unspecified external cause status; Z20.3 Contact with and (suspected) exposure to rabies
CPT/HCPCS: 90375; 90471; 90472; 90675; 90715; 96372; 99282; 99284

== ENCOUNTER 2022-08-07 14:21 | Outpatient (REF) | payer MEDICAID, SELFPAY | END 2022-08-07 14:22 | disposition home or self-care (01) | LOC: HO.MDS 14:21 | PROVIDERS: Visit Provider Physician Assistant Medical | DX: S81.851D Open bite, right lower leg, subsequent encounter (principal); W54.0XXD Bitten by dog, subsequent encounter; Z20.3 Contact with and (suspected) exposure to rabies | CPT/HCPCS: 90471; 90675 ==

== ENCOUNTER 2022-08-19 07:38 | Emergency (ER) | payer MEDICAID, SELFPAY ==
--- NOTE | ~2022-08-19 | CT_ITS ---
EXAMINATION: CT HEAD WITHOUT CONTRAST CLINICAL INFORMATION: Revision and pain COMPARISON: Previous head CT April 2022 TECHNIQUE: Contiguous axial imaging was performed from the skull base to vertex without intravenous administration of contrast. This CT examination was performed using dose optimization techniques as appropriate, variously including the following: *Automated exposure control *Adjustment of mA and/or kV according to patient size (this includes techniques or standardized protocols for targeted exams where dose is matched to indication/reason for exam; i.e. extremities or head) *Use of iterative reconstruction technique DLP: 605 mGy-cm FINDINGS: There is no evidence of an extra-axial collection. There is no evidence of intra or extra-axial hemorrhage. The ventricles and extra-axial CSF spaces are appropriate. Rutherford-white matter differentiation is normal. No mass, mass effect or infarct. Bilateral ethmoid sinusitis. There is also membranous soft tissue thickening in the left maxillary sinus and sphenoid sinus. Mastoid air cells and middle ears are clear. No skull fracture. CT/CT head/brain wo IV con IMPRESSION: No acute intracranial findings. Sinusitis.
--- NOTE | ~2022-08-19 | XR_ITS ---
EXAMINATION: XR CHEST CLINICAL INFORMATION: Chest pain COMPARISON: Previous chest x-ray July [address] August 2016 TECHNIQUE: 2 views of the chest were obtained. FINDINGS: The cardiac and mediastinal contours are stable. Increased convexity at the right cardiophrenic angle and left lung base adjacent to the spine corresponding to fat and likely related to bilateral diaphragmatic hernias when compared with previous CT. The lungs are clear. No pleural effusion or pneumothorax. Degenerative changes of the spine. XR/XR chest 2V IMPRESSION: No evidence for acute disease in the chest.
--- NOTE | 2022-08-19 07:42 | ECG_ITS ---
Test Reason : CHEST PAIN Blood Pressure : / mmHG Vent. Rate : 073 BPM Atrial Rate : 073 BPM P-R Int : 150 ms QRS Dur : 132 ms QT Int : 428 ms P-R-T Axes : 055 -12 094 degrees QTc Int : 471 ms Normal sinus rhythm Left bundle branch block Abnormal ECG When compared with ECG of 22-JUL-2022 13:26, No significant change was found Referred By: Dana Berrios Electronically Signed By:KELLY VIGIL MD
--- NOTE | 2022-08-19 07:42 | ED.GENADULT ---
HPI - General Adult General Chief complaint: Chest Pain Stated complaint: sob, headaches, chest pains, per ems Time Seen by Provider: 08/19/22 07:41 Source: patient and EMS Mode of arrival: EMS Limitations: no limitations History of Present Illness HPI narrative: Patient is a 57 year old assigned female at with a history of IVDU presenting to the emergency department today with a headache and intermittent chest pain. Patient states that over the last few hours she has had a cough and a headache with intermittent chest pain. Patient denies any dizziness, lightheadedness, abdominal pain, nausea, vomiting, fever, chills, blurry vision, double vision, loss of vision, difficulty breathing, shortness of breath, back pain, night sweats, pain with urination, increased urinary frequency, increased urinary urgency, blood in her urine or stool, syncope or a near syncopal episode, recent trauma or falls, bowel incontinence, bladder incontinence, bowel retention, bladder retention, or any other complaints at this time. Onset (ago): hour(s) (12) Location: head and chest Severity: mild Severity scale (1-10): 4 Pain Consistency: intermittent Relieving factors: none Exacerbating factors: none Associated symptoms: chest pain and headaches Treatments prior to arrival: none Related Data Home Medications Medication Instructions Recorded Confirmed cetirizine 10 mg tablet 10 mg PO DAILY 08/28/21 clonidine HCl 0.1 mg tablet 0.1 mg PO BID 08/28/21 hydrochlorothiazide 12.5 mg tablet 12.5 mg PO DAILY 08/28/21 hydroxyzine HCl 25 mg tablet 25 - 50 mg PO Q6H PRN anxiety 08/28/21 loperamide 2 mg tablet 2 mg PO Q4H PRN diarrhea 08/28/21 (Anti-Diarrheal (loperamide)) naloxone 4 mg/actuation nasal 0 spray intranasal 08/28/21 spray (Narcan) pseudoephedrine HCl 30 mg tablet 60 mg PO Q4-6H PRN 08/28/21 (Sudogest) Previous Rx's Medication Instructions Recorded ondansetron HCl 4 mg tablet 4 mg PO Q8H PRN nausea and 10/27/20 (Zofran) vomiting #7 tabs albuterol sulfate 90 mcg/actuation 2 puff inhalation Q4-6H PRN 12/19/20 aerosol inhaler (ProAir HFA) Wheezing #8.5 grams metoprolol succinate 25 mg 25 mg PO DAILY #30 tabs 05/13/21 tablet,extended release 24 hr (Toprol XL) umeclidinium 62.5 mcg-vilanterol 1 inh inhalation DAILY 30 days #1 08/28/21 25 mcg/actuation powdr for ea inhalation (Anoro Ellipta) ibuprofen 600 mg tablet 600 mg PO Q8H PRN pain #14 tabs 05/03/22 ondansetron 4 mg disintegrating 4 mg PO Q8H PRN nausea and 05/03/22 tablet vomiting #10 tabs amoxicillin 875 mg-potassium 1 tab PO BID 7 days #14 tabs 08/04/22 clavulanate 125 mg tablet doxycycline hyclate 100 mg tablet 100 mg PO BID 7 days #14 tabs 08/19/22 Allergies Allergy/AdvReac Type Severity Reaction Status Date / Time lisinopril Allergy Severe Angioedema Verified 08/19/22 07:54 hydroxyzine [HYDROXYZINE] AdvReac Intermediate reports Verified 08/19/22 07:54 redness and swelling Review of Systems Constitutional: Constitutional: Reports no additional constitutional complaints, Denies chills, Denies fever(s), Reports headache(s) and Denies night sweats Eyes: Eyes: Reports no additional eye complaints, Denies blurry vision, Denies change in vision, Denies diplopia, Denies eye discharge, Denies loss of vision and Denies eye pain ENT: Denies dizziness and Reports headache(s) Cardiovascular: Cardiovascular: Reports no additional cardiovascular complaints, Reports chest pain (intermittent), Denies lightheadedness, Denies Loss of Consciousness and Denies dyspnea Respiratory: Respiratory: Reports no additional respiratory complaints, Reports cough and Denies dyspnea Gastrointestinal: Gastrointestinal: Reports no additional gastrointestinal complaints, Denies abdominal pain, Denies melena, Denies hematochezia, Denies change in bowel habits and Denies change in stool character Genitourinary: Genitourinary: Denies hematuria, Denies urinary frequency, Denies dysuria, Denies urinary incontinence, Denies urinary hesitancy and Denies urinary urgency Musculoskeletal: Musculoskeletal: Reports no additional musculoskeletal complaints, Denies numbness and Denies tingling Neurologic: Denies dizziness, Reports headache(s), Denies loss of vision, Denies numbness and Denies tingling Psychiatric: Psychiatric: Reports no additional psychiatric complaints Endocrine: Endocrine: Reports no additional endocrine complaints Hematologic/Lymphatic: Hematologic/Lymphatic: Reports no additional hematologic/lymphatic complaints Allergic/Immunologic: Allergic/Immunologic: Reports no additional allergic/immunologic complaints [facility] Past Medical History Attestation statement: The following information was validated with the patient. Source: old records reviewed and nursing notes reviewed Medical History Angioedema Anxiety Asthma Chronic back pain Chronic knee pain Depression History of alcohol dependence History of fatty infiltration of liver History of heroin use History of left bundle branch block (LBBB) History of opioid abuse History of panic disorder History of seizure HTN (hypertension) Left against medical advice Migraine Surgical History Hx of colonoscopy Hx of exploratory laparotomy Social History Social History Household Members: None Housing: House Do you presently have visiting nurse or other home services: No Alcohol intake: never Patient Tobacco Use Status: Never used Tobacco Substance Use Type: Heroin, Opiates and Painkillers Advance Directives: No Advance Directives Information Provided: Yes Patient : No service: No Current occupational status: unemployed Physical Exam ED Vital Signs: Vital Signs - 24 hr 08/19/22 07:45 Temperature 97.8 F Pulse Rate 69 Respiratory Rate 20 Blood Pressure 137/69 Pulse Oximetry 97 Oxygen Delivery Method Room Air BMI result Body Mass Index 36.2 Const General: other (appears uncomfortable) Nutritional Appearance: overweight Orientation/consciousness: patient oriented x3 Limitations: no limitations [facility] Head: Yes normal to inspection Ears: hearing grossly normal bilaterally and external ears normal General nose exam: Normal external nose present, no nasal discharge noted and no epistaxis Face and sinus: Yes normal facial exam, No abrasion and No laceration Mouth: Normal oral and palatal mucosa present, no drooling and no muffled voice Eyes General: appearance normal, both eyes and all related structures Visual Sanchez: normal visual sanchez by confrontation Periorbital: periorbital findings normal Eyelids: Yes eyelids normal Conjunctivae: conjunctivae normal Pupils: Equal, round and reactive pupils present, Pupil accommodation reflex normal and Pinpoint pupils EOM: EOMs intact bilaterally Neck Neck: Yes normal visual inspection Chest Chest palpation & inspection: normal inspection of the chest Resp Effort & Inspection: normal respiratory effort and able to speak in complete sentences Auscultation: clear to auscultation bilaterally and no wheezes Cardio Rate: regular rate Rhythm: regular rhythm GI Inspection: Yes normal to inspection Palpation (GI): Soft to palpation and Tenderness to palpation present (GI) (mild tenderness in RLQ) Neuro General: patient oriented x3 Cranial nerves: Yes CN's II-XII intact bilaterally, Yes Equal, round and reactive pupils present and Yes Other cranial nerve findings present (endorses increased pain with palpation of right side of face) Cognition (Neuro): normal cognition Motor exam (neuro): 5/5 motor strength present throughout Sensory Exam: other (Endorses tingling sensation in left arm with palpation) Coordination: [id number] test normal and lbbh-[id number] test normal Extrem General: Yes normal to inspection, Yes full ROM and Yes capillary refill normal Psych Appearance: grossly normal Mental Status: mental status grossly normal Affect: normal affect Attitude: cooperative Thought process: Normal thought process present Thought content: Normal thought content present Insight: Good insight present (Psych) Medical Decision Making Medical Decision Making [facility] Narrative: Patient is a 57 year old assigned female at with a history of IVDU presenting to the emergency department today with a headache and intermittent chest pain. Patient's physical exam was unremarkable. Patient's blood work was unremarkable. Patient's EKG was unremarkable. Patient's chest x-ray showed no acute process. Patient's head CT showed sinusitis. I explained my physical exam findings as well as all test results to the patient. I answered all questions asked by the patient. I stressed the importance of the patient taking her medication as prescribed. I stressed the importance of the patient following up with her primary care provider. I stressed the importance of the patient returning to the emergency department immediately if her symptoms were to worsen or if she were to develop any dizziness, shortness of breath, difficulty breathing, chest pain, blurry vision, loss of vision, nausea, vomiting, abdominal pain, fever, chills, back pain, or any other complaints. Patient verbalized agreement and understanding with this treatment plan and discharge. Differential Diagnosis Differential Diagnoses: The differential diagnosis associated with the presentation includes anxiety, sinusitis Lab Data [facility] Lab Attestation statement: I reviewed the patient's lab results. 08/19/22 08:41 08/19/22 08:41 Labs: Lab Results 08/19/22 08/19/22 08/19/22 Range/Units 08:41 08:41 08:41 WBC 7.5 (4.8-10.8) X10*3/uL RBC 4.19 L (4.20-5.50) X10*6/uL Hgb 11.4 L (12.0-16.0) g/dl Hct 36.3 L (37.0-47.0) % MCV 86.6 (80.0-98.0) fL MCH 27.2 (27.0-33.0) pg MCHC 31.4 (31.0-35.0) g/dl RDW 13.8 (11.0-16.0) % Plt Count 307 (160-400) X10*3/uL MPV 9.0 L (9.4-12.3) fL Immature Gran % (Auto) 0.3 (0.0-0.4) % Neut % (Auto) 55.8 (45-73) % Lymph % (Auto) 22.7 (20-40) % Ray % (Auto) 8.2 (2-11) % Eos % (Auto) 12.2 H (0-4) % Baso % (Auto) 0.8 (0-2) % Lymph # (Auto) 1.7 (1.2-4.9) X10*3/uL Ray # (Auto) 0.6 (0.1-1.2) X10*3/uL Eos # (Auto) 0.9 H (0.0-0.4) X10*3/uL Baso # (Auto) 0.1 (0.0-0.2) X10*3/uL Abs Immat Gran (auto) 0.02 (0.00-0.03) X10*3/uL Absolute Neuts (auto) 4.2 (2.0-8.3) x10*3/uL Absolute Nucleated RBC 0.000 (0.0-0.012) X10*3/uL Nucleated RBC % (auto) 0.0 (0.0-0.2) /100WBC Sodium 139 (135-145) mmol/L Potassium 4.0 (3.3-5.1) mmol/L Chloride 105 (96-108) mmol/L Carbon Dioxide 27 (22-29) mmol/L Anion Gap 11 L (12-20) BUN 17 H (9-16) mg/dL Creatinine 0.71 (0.5-1.4) mg/dL Estim Creat Clear Calc 102.9 Estimated GFR > 60 Random Glucose 124 H (60-115) mg/dL Calcium 9.0 (8.4-10.2) mg/dL Magnesium 2.0 (1.6-2.6) mg/dL Total Bilirubin 0.5 (0.0-1.0) mg/dL AST 16 (5-31) U/L ALT 19 (0-31) U/L Alkaline Phosphatase 143 H (39-117) U/L Troponin I High Sens < 2.7 (<3.5-17.0) ng/L B-Natriuretic Peptide (<100) pg/mL Total Protein 7.1 (6.5-8.0) g/dL Albumin 3.8 (3.5-5.0) g/dL COVID-19 (ISHMAEL) (Negative) COVID-19 Clin Com Influenza Type A (KELLI) (Negative) Influenza Type B (KELLI) (Negative) Influenza A & B Note 08/19/22 08/19/22 08/19/22 Range/Units 08:41 08:42 08:42 WBC (4.8-10.8) X10*3/uL RBC (4.20-5.50) X10*6/uL Hgb (12.0-16.0) g/dl Hct (37.0-47.0) % MCV (80.0-98.0) fL MCH (27.0-33.0) pg MCHC (31.0-35.0) g/dl RDW (11.0-16.0) % Plt Count (160-400) X10*3/uL MPV (9.4-12.3) fL Immature Gran % (Auto) (0.0-0.4) % Neut % (Auto) (45-73) % Lymph % (Auto) (20-40) % Ray % (Auto) (2-11) % Eos % (Auto) (0-4) % Baso % (Auto) (0-2) % Lymph # (Auto) (1.2-4.9) X10*3/uL Ray # (Auto) (0.1-1.2) X10*3/uL Eos # (Auto) (0.0-0.4) X10*3/uL Baso # (Auto) (0.0-0.2) X10*3/uL Abs Immat Gran (auto) (0.00-0.03) X10*3/uL Absolute Neuts (auto) (2.0-8.3) x10*3/uL Absolute Nucleated RBC (0.0-0.012) X10*3/uL Nucleated RBC % (auto) (0.0-0.2) /100WBC Sodium (135-145) mmol/L Potassium (3.3-5.1) mmol/L Chloride (96-108) mmol/L Carbon Dioxide (22-29) mmol/L Anion Gap (12-20) BUN (9-16) mg/dL Creatinine (0.5-1.4) mg/dL Estim Creat Clear Calc Estimated GFR Random Glucose (60-115) mg/dL Calcium (8.4-10.2) mg/dL Magnesium (1.6-2.6) mg/dL Total Bilirubin (0.0-1.0) mg/dL AST (5-31) U/L ALT (0-31) U/L Alkaline Phosphatase (39-117) U/L Troponin I High Sens (<3.5-17.0) ng/L B-Natriuretic Peptide 65 (<100) pg/mL Total Protein (6.5-8.0) g/dL Albumin (3.5-5.0) g/dL COVID-19 (ISHMAEL) Negative (Negative) COVID-19 Clin Com See Note Influenza Type A (KELLI) Negative (Negative) Influenza Type B (KELLI) Negative (Negative) Influenza A & B Note See Note Independent Interpretation I performed an independent interpretation of an: EKG, Plain X-Ray and CT Scan Interpretation: Vent. Rate: 073 BPM ? ? Atrial Rate: 073 BPM P-R Int: 150 ms? QRS Dur: 132 ms QT Int: 428 ms ? ? ? P-R-T Axes: 055 -12 094 degrees QTc Int: 471 ms ? Normal sinus rhythm Left bundle branch block Abnormal ECG When compared with ECG of 22-JUL-2022 13:26, No significant change was found DD/ 0745 My interpretation is in agreement with the radiologist's impression of this imaging study. EXAMINATION: CT HEAD WITHOUT CONTRAST CLINICAL INFORMATION: Revision and pain? COMPARISON: Previous head CT April 2022 TECHNIQUE: Contiguous axial imaging was performed from the skull base to vertex without intravenous administration of contrast. This CT examination was performed using dose optimization techniques as appropriate, variously including the following: *Automated exposure control *Adjustment of mA and/or kV according to patient size (this includes techniques or standardized protocols for targeted exams where dose is matched to indication/reason for exam; i.e. extremities or head) *Use of iterative reconstruction technique DLP: 605 mGy-cm FINDINGS: There is no evidence of an extra-axial collection. There is no evidence of intra or extra-axial hemorrhage. The ventricles and extra-axial CSF spaces are appropriate. Rutherford-white matter differentiation is normal. No mass, mass effect or infarct. Bilateral ethmoid sinusitis. There is also membranous soft tissue thickening in the left maxillary sinus and sphenoid sinus. Mastoid air cells and middle ears are clear. No skull fracture. ? CT/CT head/brain wo IV con IMPRESSION: No acute intracranial findings. Sinusitis. Dictated By: Cierra Atkins MD Signed By: Electronically signed by Cierra Atkins MD 08/19/22 0957 EXAMINATION: XR CHEST CLINICAL INFORMATION: Chest pain COMPARISON: Previous chest x-ray July [address] August 2016 TECHNIQUE: 2 views of the chest were obtained. FINDINGS: The cardiac and mediastinal contours are stable. Increased convexity at the right cardiophrenic angle and left lung base adjacent to the spine corresponding to fat and likely related to bilateral diaphragmatic hernias when compared with previous CT. The lungs are clear. No pleural effusion or pneumothorax. Degenerative changes of the spine. XR/XR chest 2V IMPRESSION: No evidence for acute disease in the chest. Dictated By: Cierra Atkins MD Signed By: Electronically signed by Cierra Atkins MD 08/19/22 0846 Independent Historian Clinical information obtained from an independent historian. History obtained from or confirmed by: EMS Discharge Plan Discharge Clinical Impression: Sinusitis Patient Disposition: Home, Self-Care Instructions: Sinusitis (ED) Additional Instructions: Follow up with your primary care provider. Return to the emergency department immediately if your symptoms worsen or if you develop any dizziness, shortness of breath, difficulty breathing, chest pain, blurry vision, loss of vision, nausea, vomiting, abdominal pain, fever, chills, back pain, or any other complaints. Prescriptions: New doxycycline hyclate 100 mg tablet 100 mg PO BID 7 Days Qty: 14 0RF No Action ondansetron HCl [Zofran] 4 mg tablet 4 mg PO Q8H PRN (Reason: nausea and vomiting) Qty: 7 0RF metoprolol succinate [Toprol XL] 25 mg tablet extended release 24 hr 25 mg PO DAILY Qty: 30 1RF ondansetron 4 mg tablet,disintegrating 4 mg PO Q8H PRN (Reason: nausea and vomiting) Qty: 10 0RF ibuprofen 600 mg tablet 600 mg PO Q8H PRN (Reason: pain) Qty: 14 0RF albuterol sulfate [ProAir HFA] 90 mcg/actuation HFA aerosol inhaler 2 puff inhalation Q4-6H PRN (Reason: Wheezing) Qty: 8.5 0RF amoxicillin-pot clavulanate 875-125 mg tablet 1 tab PO BID 7 Days Qty: 14 0RF hydrochlorothiazide 12.5 mg tablet 12.5 mg PO DAILY cetirizine 10 mg tablet 10 mg PO DAILY pseudoephedrine HCl [Sudogest] 30 mg tablet 60 mg PO Q4-6H PRN hydroxyzine HCl 25 mg tablet 25 - 50 mg PO Q6H PRN (Reason: anxiety) clonidine HCl 0.1 mg tablet 0.1 mg PO BID naloxone [Narcan] 4 mg/actuation spray,non-aerosol 0 spray intranasal loperamide [Anti-Diarrheal (loperamide)] 2 mg tablet 2 mg PO Q4H PRN (Reason: diarrhea) Anoro Ellipta 62.5-25 mcg/actuation blister with device 1 inh inhalation DAILY 30 Days Qty: 1 6RF Referrals: [facility] [place] Family Medicine [Provider Group] (Call to establish and follow up with a primary care provider. If you already have a primary care provider, please follow up with them.) [facility] [place] Primary CareAbhay [Provider Group] (Call to establish and follow up with a primary care provider. If you already have a primary care provider, please follow up with them.) [facility] [place] Primary Care,Yaquelin [Provider Group] (Call to establish and follow up with a primary care provider. If you already have a primary care provider, please follow up with them.) Stand Alone Forms: Work/School Release Interventions: ED Discharge Assessment Last Done: 08/19/22 10:30 Discharge Date/Time: 08/19/22 10:31 Print Language: Gibraltarian
[2022-08-19 07:45] VITALS: BP 133/78; BP 137/69; PULSE 69; RESP 20; TEMP 36.6; O2SAT 97; BMI 36.2
[2022-08-19 08:52] LABS: Basophils Absolute Auto 0.1 X10*3/uL (0.0-0.2); Basophils Percent Auto 0.8 % (0-2); Eosinophils Absolute Auto 0.9 X10*3/uL (0.0-0.4); Eosinophils Percent Auto 12.2 % (0-4); Hematocrit 36.3 % (37.0-47.0); Hemoglobin 11.4 g/dl (12.0-16.0); Imm Gran Abs Auto 0.02 X10*3/uL (0.00-0.03); Imm Gran Pct Auto 0.3 % (0.0-0.4); Lymphocytes Absolute Auto 1.7 X10*3/uL (1.2-4.9); Lymphocytes Percent Auto 22.7 % (20-40); MANUAL DIFF FLAG NO; Mean Corpuscular HGB Conc 31.4 g/dl (31.0-35.0); Mean Corpuscular Hemoglobin 27.2 pg (27.0-33.0); Mean Corpuscular Volume 86.6 fL (80.0-98.0); Monocytes Absolute Auto 0.6 X10*3/uL (0.1-1.2); Monocytes Percent Auto 8.2 % (2-11); Neutrophils Absolute Auto 4.2 x10*3/uL (2.0-8.3); Neutrophils Percent Auto 55.8 % (45-73); Platelet Count 307 X10*3/uL (160-400); Red Blood Count 4.19 X10*6/uL (4.20-5.50); Red Cell Distribution Width 13.8 % (11.0-16.0); White Blood Count 7.5 X10*3/uL (4.8-10.8)
[2022-08-19 09:06] LABS: Alanine Aminotransferase 19 U/L (0-31); Albumin Level 3.8 g/dL (3.5-5.0); Alkaline Phosphatase 143 U/L (39-117); Anion Gap 11 (12-20); Aspartate Amino Transferase 16 U/L (5-31); Bilirubin Total 0.5 mg/dL (0.0-1.0); Blood Urea Nitrogen 17 mg/dL (9-16); Carbon Dioxide 27 mmol/L (22-29); Chloride 105 mmol/L (96-108); Creatinine Clr Calc Pharmacy 102.9; Estimated Glomerular Filt Rate > 60; Glucose Random 124 mg/dL (60-115); Sodium 139 mmol/L (135-145); Total Protein 7.1 g/dL (6.5-8.0)
[2022-08-19 09:08] LABS: COVID-19 Test Negative (Negative); IDNOW Serial# 08D9AD1C
[2022-08-19 09:12] LABS: B Type Natriuretic Peptide 65 pg/mL (<100)
[2022-08-19 09:14] LABS: IDNOW Serial# BCCEAD1C; Influenza A Negative (Negative); Influenza B2 Negative (Negative)
--- NOTE | 2022-08-19 09:14 | PC.NURSE ---
pt reported sob/nonproductive cough/cp w/cough, sinus headache, hx of asthma did neb tx, no improvement. started 3 am. no n/v/d/fever. LSCA. O2 sat 97-98% r/a
[2022-08-19 09:18] LABS: Troponin-I High Sensitivity < 2.7 ng/L (<3.5-17.0)
== END 2022-08-19 10:31 | disposition home or self-care (01) ==
PROVIDERS: Physician Assistant Medical; Emergency Provider Emergency Medicine
DX: J32.9 Chronic sinusitis, unspecified (principal); R51.9 Headache, unspecified; Z20.822 Contact with and (suspected) exposure to COVID-19
CPT/HCPCS: 36415; 70450; 71046; 80053; 83735; 83880; 84484; 85025; 87502; 87635; 93005; 99284

== ENCOUNTER 2022-10-07 08:15 | Emergency (ER) | payer MEDICAID, SELFPAY ==
--- NOTE | ~2022-10-07 | XR_ITS ---
EXAMINATION: XR CHEST CLINICAL INFORMATION: Chest pain and shortness of breath COMPARISON: Radiograph 08/19/2022. CT 09/04/2021. TECHNIQUE: 2 views of the chest were obtained. FINDINGS: The lungs are well expanded. There is no focal consolidation, edema, or effusion. No pneumothorax. The cardiomediastinal silhouette is within normal limits. Unchanged appearance of a prominent fat pad along the right heart border. No acute osseous abnormality. XR/XR chest 2V IMPRESSION: No acute pulmonary disease.
--- NOTE | 2022-10-07 08:20 | ECG_ITS ---
Test Reason : chest pain Blood Pressure : / mmHG Vent. Rate : 077 BPM Atrial Rate : 077 BPM P-R Int : 160 ms QRS Dur : 134 ms QT Int : 414 ms P-R-T Axes : 044 -14 101 degrees QTc Int : 468 ms Normal sinus rhythm Left bundle branch block Abnormal ECG When compared with ECG of 19-AUG-2022 07:45, No significant change was found Referred By: Generic ED Physician Electronically Signed By:Marcelo Wahl
[2022-10-07 08:33] VITALS: BP 129/74; PULSE 72; RESP 16; TEMP 36.1; O2SAT 94; BMI 32.0
[2022-10-07 08:39] LABS: MANUAL DIFF FLAG NO
[2022-10-07 08:40] LABS: Basophils Percent Auto 0.6 % (0-2); Eosinophils Absolute Auto 0.6 X10*3/uL (0.0-0.4); Eosinophils Percent Auto 8.8 % (0-4); Hematocrit 38.7 % (37.0-47.0); Hemoglobin 12.4 g/dl (12.0-16.0); Imm Gran Abs Auto 0.01 X10*3/uL (0.00-0.03); Imm Gran Pct Auto 0.1 % (0.0-0.4); Lymphocytes Absolute Auto 1.9 X10*3/uL (1.2-4.9); Mean Corpuscular Hemoglobin 27.7 pg (27.0-33.0); Mean Corpuscular Volume 86.4 fL (80.0-98.0); Monocytes Absolute Auto 0.5 X10*3/uL (0.1-1.2); Monocytes Percent Auto 7.5 % (2-11); Neutrophils Absolute Auto 3.7 x10*3/uL (2.0-8.3); Platelet Count 333 X10*3/uL (160-400); Red Blood Count 4.48 X10*6/uL (4.20-5.50); Red Cell Distribution Width 13.3 % (11.0-16.0); White Blood Count 6.8 X10*3/uL (4.8-10.8)
[2022-10-07 08:56] LABS: Anion Gap 14 (12-20); Blood Urea Nitrogen 17 mg/dL (9-16); Calcium 9.6 mg/dL (8.4-10.2); Carbon Dioxide 26 mmol/L (22-29); Chloride 103 mmol/L (96-108); Creatinine Clr Calc Pharmacy 82.8; Estimated Glomerular Filt Rate > 60; Glucose Random 129 mg/dL (60-115); Potassium 3.9 mmol/L (3.3-5.1); Sodium 139 mmol/L (135-145)
[2022-10-07 09:05] LABS: Troponin-I High Sensitivity < 2.7 ng/L (<3.5-17.0)
[2022-10-07 09:32] VITALS: BP 129/74; PULSE 71; RESP 15; O2SAT 97
[2022-10-07 10:59] VITALS: BP 105/75; PULSE 83; RESP 18; O2SAT 97
--- NOTE | 2022-10-07 12:46 | ED.CHESTPAIN ---
HPI - Chest Pain General Chief Complaint: Chest Pain Stated Complaint: SOB, chest pain Time Seen by Provider: 10/07/22 09:32 Source: patient Mode of arrival: EMS Limitations: no limitations History of Present Illness HPI narrative: 57-year-old female presents with chest pain. Chest pain is left-sided. It has been intermittent. This severe. The sharp stabbing pain that lasts briefly. It does not radiate. Not associated with exertion. There is no clear relieving or exacerbating features. Is not associated with nausea, vomiting or shortness of breath. Patient has never had this pain before. Patient reports having had previous cardiac workup but she is unaware of with results are. She denies any lightheadedness, palpitations. Again, patient describes the pain as sharp, brief, intermittent and moderate to severe in nature. Related Data Home Medications Medication Instructions Recorded Confirmed cetirizine 10 mg tablet 10 mg PO DAILY 08/28/21 clonidine HCl 0.1 mg tablet 0.1 mg PO BID 08/28/21 hydrochlorothiazide 12.5 mg tablet 12.5 mg PO DAILY 08/28/21 hydroxyzine HCl 25 mg tablet 25 - 50 mg PO Q6H PRN anxiety 08/28/21 loperamide 2 mg tablet 2 mg PO Q4H PRN diarrhea 08/28/21 (Anti-Diarrheal (loperamide)) naloxone 4 mg/actuation nasal 0 spray intranasal 08/28/21 spray (Narcan) pseudoephedrine HCl 30 mg tablet 60 mg PO Q4-6H PRN 08/28/21 (Sudogest) Previous Rx's Medication Instructions Recorded ondansetron HCl 4 mg tablet 4 mg PO Q8H PRN nausea and 10/27/20 (Zofran) vomiting #7 tabs albuterol sulfate 90 mcg/actuation 2 puff inhalation Q4-6H PRN 12/19/20 aerosol inhaler (ProAir HFA) Wheezing #8.5 grams metoprolol succinate 25 mg 25 mg PO DAILY #30 tabs 05/13/21 tablet,extended release 24 hr (Toprol XL) umeclidinium 62.5 mcg-vilanterol 1 inh inhalation DAILY 30 days #1 08/28/21 25 mcg/actuation powdr for ea inhalation (Anoro Ellipta) ibuprofen 600 mg tablet 600 mg PO Q8H PRN pain #14 tabs 05/03/22 ondansetron 4 mg disintegrating 4 mg PO Q8H PRN nausea and 05/03/22 tablet vomiting #10 tabs amoxicillin 875 mg-potassium 1 tab PO BID 7 days #14 tabs 08/04/22 clavulanate 125 mg tablet doxycycline hyclate 100 mg tablet 100 mg PO BID 7 days #14 tabs 08/19/22 meloxicam 15 mg tablet 15 mg PO DAILY #10 tabs 10/07/22 Allergies Allergy/AdvReac Type Severity Reaction Status Date / Time lisinopril Allergy Severe Angioedema Verified 08/19/22 07:54 hydroxyzine [HYDROXYZINE] AdvReac Intermediate reports Verified 08/19/22 07:54 redness and swelling Review of Systems Review of Systems: CONSTITUTIONAL: Denies weight loss, fever and chills. HEENT: Denies changes in vision and hearing. RESPIRATORY: Denies SOB and cough. CV: Denies palpitations no CP. GI: Denies abdominal pain, nausea, vomiting and diarrhea. : Denies dysuria and urinary frequency. MSK: Denies myalgia and joint pain. SKIN: Denies rash and pruritus. NEUROLOGICAL: Denies headache and syncope. PSYCHIATRIC: Denies recent changes in mood. Denies anxiety and depression. All other ROS are negative unless in HPI PMFSH Past Medical History Medical History Angioedema Anxiety Asthma Chronic back pain Chronic knee pain Depression History of alcohol dependence History of fatty infiltration of liver History of heroin use History of left bundle branch block (LBBB) History of opioid abuse History of panic disorder History of seizure HTN (hypertension) Left against medical advice Migraine Surgical History Hx of colonoscopy Hx of exploratory laparotomy Social History Social History Household Members: None Housing: House Do you presently have visiting nurse or other home services: No Alcohol intake: current Alcohol intake frequency: holidays/special occasions only Patient Tobacco Use Status: Never used Tobacco Smoked in Last 30 Days: No Use of substances other than those prescribed or required for medical reasons: No Substance Use Type: Heroin, Opiates and Painkillers Advance Directives: No Advance Directives Information Provided: Yes Patient : No service: No Current occupational status: unemployed Physical Exam Vital Signs: Vital Signs: Last Vital Signs Temp 97 F 10/07/22 08:33 Pulse 83 10/07/22 10:59 Resp 18 10/07/22 10:59 BP 105/75 10/07/22 10:59 Pulse Ox 97 10/07/22 10:59 O2 Del Method Room Air 10/07/22 10:59 BMI result Body Mass Index 32.0 GEN: Well developed, no acute distress, alert, oriented HEENT: Normocephalic, atraumatic, normal external ears, nose appears normal, no oropharyngeal edema or exudates Eyes: Normal to appearance Neck: Supple, no lymphadenopathy Respiratory: Talks in complete sentences, no respiratory distress, clear to auscultation bilaterally Cardiovascular: Regular rate and rhythm, no murmurs rubs or gallops Abdomen: Soft, nontender, nondistended, no guarding, no rebound Back: No CVA tenderness Extremities: No clubbing cyanosis or edema Neurologic: No focal neurologic deficits, cranial nerves 2-12 intact, strength is 5/5 bilaterally Skin: No rash Chest: Reproducible chest wall tenderness along the midclavicular line Course Course Course Narrative: The workup is complete, patient's EKG is consistent with an old left bundle-branch block. Her troponin is negative. Her story is atypical and has been going on intermittently for at least 24-36 hours. With a negative troponin, this is not to be appear to be cardiac in nature. The chest pain is reproducible most consistent with acute costochondritis. Will treat the patient with NSAIDs and recommend close follow-up the primary care provider as well as a leak detector to do any additional testing that may be appropriate. There is no indication for hospitalization at this time. Medical Decision Making Medical Decision Making MDM Narrative: Patient presents with left-sided chest pain. Is atypical, sharp, intermittent, brief and reproducible on examination. She has an old left bundle-branch block that does not appear to show any evidence of acute ischemic changes. Will order routine laboratory analysis including troponin. Would like to get a chest x-ray to rule out any acute cardiopulmonary disease. Should any abnormalities occur, I will recommend hospitalization for further evaluation. Differential diagnosis includes:Atypical chest pain, musculoskeletal chest pain, chest wall pain, myocardial infarction, pericarditis, myocarditis, anxiety, stress, reflux, pneumonia, pulmonary embolus, dissection Differential Diagnosis Differential Diagnoses: The differential diagnosis associated with the presentation includes (See above) Admission/Observation Consideration of admission/observation: Escalation of care including admission/observation considered Lab Data MDM Lab Attestation statement: I reviewed the patient's lab results. 10/07/22 08:33 10/07/22 08:33 Labs: Lab Results 10/07/22 10/07/22 10/07/22 Range/Units 08:33 08:33 08:33 WBC 6.8 (4.8-10.8) X10*3/uL RBC 4.48 (4.20-5.50) X10*6/uL Hgb 12.4 (12.0-16.0) g/dl Hct 38.7 (37.0-47.0) % MCV 86.4 (80.0-98.0) fL MCH 27.7 (27.0-33.0) pg MCHC 32.0 (31.0-35.0) g/dl RDW 13.3 (11.0-16.0) % Plt Count 333 (160-400) X10*3/uL MPV 9.0 L (9.4-12.3) fL Immature Gran % (Auto) 0.1 (0.0-0.4) % Neut % (Auto) 55.0 (45-73) % Lymph % (Auto) 28.0 (20-40) % [place] % (Auto) 7.5 (2-11) % Eos % (Auto) 8.8 H (0-4) % Baso % (Auto) 0.6 (0-2) % Lymph # (Auto) 1.9 (1.2-4.9) X10*3/uL [place] # (Auto) 0.5 (0.1-1.2) X10*3/uL Eos # (Auto) 0.6 H (0.0-0.4) X10*3/uL Baso # (Auto) 0.0 (0.0-0.2) X10*3/uL Abs Immat Gran (auto) 0.01 (0.00-0.03) X10*3/uL Absolute Neuts (auto) 3.7 (2.0-8.3) x10*3/uL Absolute Nucleated RBC 0.000 (0.0-0.012) X10*3/uL Nucleated RBC % (auto) 0.0 (0.0-0.2) /100WBC Sodium 139 (135-145) mmol/L Potassium 3.9 (3.3-5.1) mmol/L Chloride 103 (96-108) mmol/L Carbon Dioxide 26 (22-29) mmol/L Anion Gap 14 (12-20) BUN 17 H (9-16) mg/dL Creatinine 0.74 (0.5-1.4) mg/dL Estim Creat Clear Calc 82.8 Estimated GFR > 60 Random Glucose 129 H (60-115) mg/dL Calcium 9.6 D (8.4-10.2) mg/dL Troponin I High Sens < 2.7 (<3.5-17.0) ng/L Independent Interpretation I performed an independent interpretation of an: EKG (Normal sinus rhythm heart rate 77, left bundle-branch block, no significant changes compared to August 19, 2022) and Plain X-Ray (Chest: No acute cardiopulmonary disease) Tests considered The following testing was considered but not selected: CT chest, not indicated Prescription Management I considered prescription management with: Pain Medication Discharge Plan Discharge Clinical Impression: Chest pain, Costalchondritis Patient Disposition: Home, Self-Care Instructions: Chest Pain (DC), Costochondritis (ED) Additional Instructions: I am recommending follow up with a leak detector. Prescriptions: New meloxicam 15 mg tablet 15 mg PO DAILY Qty: 10 0RF No Action ondansetron HCl [Zofran] 4 mg tablet 4 mg PO Q8H PRN (Reason: nausea and vomiting) Qty: 7 0RF metoprolol succinate [Toprol XL] 25 mg tablet extended release 24 hr 25 mg PO DAILY Qty: 30 1RF ondansetron 4 mg tablet,disintegrating 4 mg PO Q8H PRN (Reason: nausea and vomiting) Qty: 10 0RF ibuprofen 600 mg tablet 600 mg PO Q8H PRN (Reason: pain) Qty: 14 0RF albuterol sulfate [ProAir HFA] 90 mcg/actuation HFA aerosol inhaler 2 puff inhalation Q4-6H PRN (Reason: Wheezing) Qty: 8.5 0RF amoxicillin-pot clavulanate 875-125 mg tablet 1 tab PO BID 7 Days Qty: 14 0RF doxycycline hyclate 100 mg tablet 100 mg PO BID 7 Days Qty: 14 0RF hydrochlorothiazide 12.5 mg tablet 12.5 mg PO DAILY cetirizine 10 mg tablet 10 mg PO DAILY pseudoephedrine HCl [Sudogest] 30 mg tablet 60 mg PO Q4-6H PRN hydroxyzine HCl 25 mg tablet 25 - 50 mg PO Q6H PRN (Reason: anxiety) clonidine HCl 0.1 mg tablet 0.1 mg PO BID naloxone [Narcan] 4 mg/actuation spray,non-aerosol 0 spray intranasal loperamide [Anti-Diarrheal (loperamide)] 2 mg tablet 2 mg PO Q4H PRN (Reason: diarrhea) Anoro Ellipta 62.5-25 mcg/actuation blister with device 1 inh inhalation DAILY 30 Days Qty: 1 6RF Referrals: [facility] [Provider Group] Interventions: ED Discharge Assessment Last Done: 10/07/22 11:00 Discharge Date/Time: 10/07/22 11:01
== END 2022-10-07 11:01 | disposition home or self-care (01) ==
PROVIDERS: Emergency Provider Emergency Medicine
DX: R07.89 Other chest pain (principal); R06.02 Shortness of breath; M94.0 Chondrocostal junction syndrome [Tietze]; Z79.899 Other long term (current) drug therapy
CPT/HCPCS: 36415; 71046; 80048; 84484; 85025; 93005; 99283; 99284

== ENCOUNTER → 2022-10-07 08:20 | Outpatient (BNV) | payer MEDICAID, SELFPAY | PROVIDERS: Emergency Provider Emergency Medicine; Visit Provider Internal Medicine Cardiovascular Disease | DX: R94.31 Abnormal electrocardiogram [ECG] [EKG] (principal) | CPT/HCPCS: 93010 ==

== ENCOUNTER 2022-10-15 10:23 | Outpatient (AMB) | payer MEDICAID, SELFPAY ==
--- NOTE | 2022-10-15 10:23 | A.OFFVIS_ITS ---
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 Dobby Loom Fixer Required: No Accompanied by: Self / Same As Patient Allergies lisinopril Allergy (Severe, Verified 10/15/22 10:25) Angioedema hydroxyzine [HYDROXYZINE] Adverse Reaction (Intermediate, Verified 10/15/22 10:25) reports redness and swelling Medication List - Last Reconciled 10/15/22 by Marcelo Wahl MD albuterol sulfate 90 mcg/actuation (ProAir HFA) 2 puffs inhalation Q4-6H PRN buprenorphine-naloxone 8-2 mg (Suboxone) 10 mg sublingual BID cetirizine 10 mg PO DAILY clonidine HCl 0.1 mg PO BID docusate sodium 100 mg PO hydrochlorothiazide 12.5 mg PO DAILY loperamide (Anti-Diarrheal (loperamide)) 2 mg PO Q4H PRN meloxicam 15 mg PO DAILY metoprolol succinate ER (Toprol XL) 25 mg PO DAILY naloxone 4 mg/actuation (Narcan) 0 sprays intranasal ondansetron HCl (Zofran) 4 mg PO Q8H PRN pseudoephedrine HCl (Sudogest) 60 mg PO Q4-6H PRN umeclidinium-vilanterol 62.5-25 mcg/actuation (Anoro Ellipta) 1 inh inhalation DAILY 30 days HPI HPI Comments History of Present Illness Details [age] year female who is here for assessment of chest pain. She has been experiencing left-sided sharp chest pains. She has background of heroin abuse. She said she used a week ago. She is currently taking Suboxone. The left-sided chest pains are very localized and she can put 1 finger over the area of the pain. There is exquisite tenderness at the site. The area hurts with breathing as well as with movements. EKG has shown left bundle-branch block which is ordered. She was assessed in the emergency department in September and high sensitivity troponin levels were less than 2.7. She walks with a walker because she has arthritis. She is a former smoker. She has some dyspnea on exertion but does not feel bothered by that currently. [facility] Medical History Angioedema Anxiety Asthma Chronic back pain Chronic knee pain Depression History of alcohol dependence History of fatty infiltration of liver History of heroin use History of left bundle branch block (LBBB) History of opioid abuse History of panic disorder History of seizure HTN (hypertension) Left against medical advice Migraine Surgical History Hx of colonoscopy Hx of exploratory laparotomy Family History (Updated 10/15/22 @ 10:27 by MITZI Garsia) Mother Heart disease Arthritis HTN (hypertension) Social History (Updated 10/15/22 @ 10:28 by MITZI Garsia) Household Members: None Housing: House Do you presently have visiting nurse or other home services: No Alcohol intake: current Alcohol intake frequency: a few times a month Patient Tobacco Use Status: Former Tobacco user Quit Date: 2021 Years Smoked: 10 +/- Substance Use Type: Heroin, Opiates and Painkillers service: No Current occupational status: unemployed Review of Systems Const Denies chills, Denies daytime sleepiness, Denies fatigue, Denies fever(s), Denies frequent falls, Denies night sweats, Denies snoring, Denies weakness, Denies weight gain and Denies weight loss Eyes Denies loss of vision ENT Denies dizziness and Denies hearing loss Card Denies chest pain, Denies chest pain with activity, Denies syncope, Denies rapid heart rate, Denies edema, Denies claudication, Denies leg edema, Denies lightheadedness, Denies palpitations, Denies dyspnea, Denies dyspnea on exertion and Denies orthopnea Resp Denies cough, Denies excessive phlegm production, Denies dyspnea, Denies dyspnea on exertion, Denies snoring and Denies wheezing GI Denies abdominal pain, Denies hematochezia, Denies change in bowel habits, Denies change in stool character, Denies heartburn, Denies nausea and Denies vomiting Denies hematuria, Denies urinary frequency and Denies dysuria Musc Denies arthralgias, Denies muscle weakness, Denies numbness and Denies tingling Skin/Breast Denies nail changes and Denies rash Neuro Denies Abnormal speech present, Denies dizziness, Denies syncope, Denies frequent falls, Denies loss of vision, Denies memory loss, Denies numbness, Denies tingling and Denies weakness Psych Denies depression and Denies memory loss Endo Denies fatigue and Denies palpitations Aller/Immun Denies wheezing Physical Exam Vital Signs: Last Vital Signs Pulse 106 H 10/15/22 10:24 BP 104/70 10/15/22 10:24 BMI result Body Mass Index 32.0 GENERAL APPEARANCE: in no acute distress, pleasant. NECK: no carotid bruit, no jugular venous distention. SKIN: no suspicious lesions, warm and dry. HEART: no murmurs, regular rate and rhythm. LUNGS: clear to auscultation bilaterally. Left-sided chest wall tenderness. ABDOMEN: soft, nontender. EXTREMITIES: no edema. PERIPHERAL PULSES: equal. NEUROLOGIC: No gross deficits, AAO X 3 Neuro Speech: No Abnormal speech present Assessment & Plan Assessment & Plan (1) Chest pain: Code(s): R07.9 - Chest pain, unspecified (2) LBBB (left bundle branch block): Code(s): I44.7 - Left bundle-branch block, unspecified Plan 57-year-old female who is here for assessment of chest pain. She has known anginal chest pain and likely causes costochondritis. I have advised her to take Tylenol and use some analgesic gel at the side. No stress testing is indicated. She has chronic left bundle-branch block. We will arrange an echocardiogram to assess LV for any structural issues as left bundle-branch block sometime is a marker for underlying cardiomyopathy. Clinically compensated. Dyspnea on exertion due to poor mobility due to arthritis as well as previous smoking. She will see us back in 4 months. Thank you for allowing me to participate in the care of your patient. Please feel free to contact me if you have any questions. Orders: Orders CA echo transthoracic complete Today I44.7 - Left bundle-branch block, unspecified Coding Level of Care Code New Pt Level 4 (95336) Diagnoses Chest pain R07.9 LBBB (left bundle branch block) I44.7
[2022-10-15 10:24] VITALS: BP 104/70; PULSE 106; BMI 32.0
== END 2022-10-15 10:46 | disposition home or self-care (01) ==
LOC: HO.HCSM 10:23
PROVIDERS: PCP Nurse Practitioner Primary Care; Visit Provider Internal Medicine Cardiovascular Disease
DX: R07.9 Chest pain, unspecified (principal); I44.7 Left bundle-branch block, unspecified
CPT/HCPCS: 99204

== ENCOUNTER → 2022-10-15 10:23 | Outpatient (BNVA) | payer MEDICAID, SELFPAY | PROVIDERS: PCP Nurse Practitioner Primary Care; Visit Provider Internal Medicine Cardiovascular Disease | DX: I44.7 Left bundle-branch block, unspecified (principal); R07.9 Chest pain, unspecified | CPT/HCPCS: 99202 ==

== ENCOUNTER 2022-10-25 18:17 | Emergency (ER) | payer MEDICAID, SELFPAY ==
--- NOTE | 2022-10-25 18:38 | ECG_ITS ---
Test Reason : CHEST PAIN Blood Pressure : / mmHG Vent. Rate : 081 BPM Atrial Rate : 081 BPM P-R Int : 144 ms QRS Dur : 126 ms QT Int : 396 ms P-R-T Axes : 040 -27 083 degrees QTc Int : 460 ms Normal sinus rhythm Left bundle branch block Abnormal ECG When compared with ECG of 07-OCT-2022 08:20, No significant change was found Referred By: Generic ED Physician Electronically Signed By:DARIUS MUSTAFA
[2022-10-25 18:39] VITALS: BP 106/66; BP 97/62; PULSE 113; PULSE 91; RESP 16; TEMP 36.7; O2SAT 94; O2SAT 96; BMI 40.2
[2022-10-25 18:43] VITALS: PULSE 90
[2022-10-25 19:46] LABS: MANUAL DIFF FLAG NO
[2022-10-25 19:47] LABS: Basophils Absolute Auto 0.1 X10*3/uL (0.0-0.2); Basophils Percent Auto 0.5 % (0-2); Eosinophils Absolute Auto 0.6 X10*3/uL (0.0-0.4); Hematocrit 35.6 % (37.0-47.0); Hemoglobin 11.5 g/dl (12.0-16.0); Imm Gran Abs Auto 0.03 X10*3/uL (0.00-0.03); Imm Gran Pct Auto 0.3 % (0.0-0.4); Lymphocytes Absolute Auto 1.5 X10*3/uL (1.2-4.9); Lymphocytes Percent Auto 15.6 % (20-40); Mean Corpuscular HGB Conc 32.3 g/dl (31.0-35.0); Mean Corpuscular Hemoglobin 27.7 pg (27.0-33.0); Mean Corpuscular Volume 85.8 fL (80.0-98.0); Mean Platelet Volume 8.8 fL (9.4-12.3); Monocytes Absolute Auto 0.7 X10*3/uL (0.1-1.2); Monocytes Percent Auto 7.4 % (2-11); Neutrophils Absolute Auto 6.6 x10*3/uL (2.0-8.3); Neutrophils Percent Auto 70.2 % (45-73); Platelet Count 339 X10*3/uL (160-400); Red Blood Count 4.15 X10*6/uL (4.20-5.50); Red Cell Distribution Width 13.1 % (11.0-16.0); White Blood Count 9.4 X10*3/uL (4.8-10.8)
[2022-10-25 20:07] LABS: Alanine Aminotransferase 20 U/L (0-31); Alkaline Phosphatase 141 U/L (39-117); Anion Gap 16 (12-20); Aspartate Amino Transferase 15 U/L (5-31); Bilirubin Total 0.3 mg/dL (0.0-1.0); Blood Urea Nitrogen 28 mg/dL (9-16); Calcium 9.2 mg/dL (8.4-10.2); Carbon Dioxide 24 mmol/L (22-29); Chloride 102 mmol/L (96-108); Creatinine Clr Calc Pharmacy 84.6; Estimated Glomerular Filt Rate > 60; Glucose Random 123 mg/dL (60-115); Potassium 4.6 mmol/L (3.3-5.1); Sodium 137 mmol/L (135-145); Total Protein 7.6 g/dL (6.5-8.0)
[2022-10-25 20:19] LABS: Troponin-I High Sensitivity < 2.7 ng/L (<3.5-17.0)
--- NOTE | 2022-10-25 20:50 | ED.CHESTPAIN ---
HPI - Chest Pain General Chief Complaint: Chest Pain Stated Complaint: chest pain Time Seen by Provider: 10/25/22 20:47 Source: patient Mode of arrival: ambulatory Limitations: no limitations History of Present Illness HPI narrative: 57 yo female with PMH of KENDRA, arthritis, asthma, LBBB, gastroparesis who comes in with c/o at 5am developing wheezing and dry cough but no fevers or sputum production. she notes a cough and some resolved sharp chest pain with it that has resolved. the patient gets chest pain like that with her asthma at times. she denies prior blood clots. she used an INH which helped. she states she feels much better now other than mild wheeze MD complaint: chest pain Pertinent past history: asthma Onset (ago): hour(s) (since 5am) Timing of current episode: now resolved Prior episodes: Yes Onset: during rest Pain location: left chest Pain radiation: none Severity: mild Quality: tightness, aching and sharp Relieving factors: nothing Exacerbating factors: movement and other (coughing, breathing) Context: other (hx of similar episodes) Associated symptoms: cough Treatment prior to arrival: none Related Data Home Medications Medication Instructions Recorded Confirmed cetirizine 10 mg tablet 10 mg PO DAILY 08/28/21 10/15/22 clonidine HCl 0.1 mg tablet 0.1 mg PO BID 08/28/21 10/15/22 hydrochlorothiazide 12.5 mg tablet 12.5 mg PO DAILY 08/28/21 10/15/22 loperamide 2 mg tablet 2 mg PO Q4H PRN diarrhea 08/28/21 10/15/22 (Anti-Diarrheal (loperamide)) naloxone 4 mg/actuation nasal 0 spray intranasal 08/28/21 10/15/22 spray (Narcan) pseudoephedrine HCl 30 mg tablet 60 mg PO Q4-6H PRN 08/28/21 10/15/22 (Sudogest) buprenorphine 8 mg-naloxone 2 mg 10 mg sublingual BID 10/15/22 10/15/22 sublingual film (Suboxone) docusate sodium 100 mg capsule 100 mg PO constipation 10/15/22 10/15/22 Previous Rx's Medication Instructions Recorded ondansetron HCl 4 mg tablet 4 mg PO Q8H PRN nausea and 10/27/20 (Zofran) vomiting #7 tabs albuterol sulfate 90 mcg/actuation 2 puff inhalation Q4-6H PRN 12/19/20 aerosol inhaler (ProAir HFA) Wheezing #8.5 grams metoprolol succinate 25 mg 25 mg PO DAILY #30 tabs 05/13/21 tablet,extended release 24 hr (Toprol XL) umeclidinium 62.5 mcg-vilanterol 1 inh inhalation DAILY 30 days #1 08/28/21 25 mcg/actuation powdr for ea inhalation (Anoro Ellipta) meloxicam 15 mg tablet 15 mg PO DAILY #10 tabs 10/07/22 prednisone 20 mg tablet 40 mg PO DAILY 5 days #10 tabs 10/25/22 Allergies Allergy/AdvReac Type Severity Reaction Status Date / Time lisinopril Allergy Severe Angioedema Verified 10/15/22 10:25 hydroxyzine [HYDROXYZINE] AdvReac Intermediate reports Verified 10/15/22 10:25 redness and swelling Review of Systems Review of Systems: Constitutional : No Fever, No Chills ENT/Mouth : No Hoarseness, No sore throat, No Rhinorrhea Eyes: No Redness, No Discharge, No Vision Changes Cardiovascular : pos Chest Pain, positive SOB, positive Dyspnea on Exertion, No Edema Respiratory : positive Cough, No Sputum, positive Wheezing, Gastrointestinal : No Nausea, No Vomiting, No Diarrhea, No abdominal Pain Genitourinary : No Dysuria, No Hematuria Musculoskeletal : No joint pain, No Myalgias Skin : No rash Neuro : No Weakness, No Numbness, No Headache Psych : No anxiety, depression Heme/Lymph: No Bruising, No Bleeding Endocrine : No Polyuria, No Polydipsia All other systems reviewed and are negative [facility] Past Medical History Attestation statement: The following information was validated with the patient. Medical History Angioedema Anxiety Asthma Chronic back pain Chronic knee pain Depression History of alcohol dependence History of fatty infiltration of liver History of heroin use History of left bundle branch block (LBBB) History of opioid abuse History of panic disorder History of seizure HTN (hypertension) Left against medical advice Migraine Surgical History Hx of colonoscopy Hx of exploratory laparotomy Family History Family History (Updated 10/15/22 @ 10:27 by MITZI Garsia) Mother Heart disease Arthritis HTN (hypertension) Social History Social History Household Members: None Housing: House Do you presently have visiting nurse or other home services: No Alcohol intake: current Alcohol intake frequency: does not drink Patient Tobacco Use Status: Former Tobacco user Quit Date: 2021 Smoked: 10 +/- Smoked in Last 30 Days: No Use of substances other than those prescribed or required for medical reasons: No Substance Use Type: Heroin, Opiates and Painkillers Advance Directives: No Advance Directives Information Provided: Yes service: No Current occupational status: unemployed Physical Exam Vital Signs: Vital Signs: Last Vital Signs Temp 98.1 F 10/25/22 18:39 Pulse 91 10/25/22 18:39 Resp 16 10/25/22 18:39 BP 106/66 10/25/22 18:39 Pulse Ox 94 10/25/22 18:39 O2 Del Method Room Air 10/25/22 18:39 BMI result Body Mass Index 40.2 Appearance: Alert. Oriented X3. No acute distress. Eyes: Pupils equal, round and reactive to light. ENT: Pharynx normal. Neck: Normal inspection. Neck supple. CVS: Normal heart rate and rhythm. Pulses normal. chest wall non-tender Respiratory: No respiratory distress. Breath sounds very faint exp wheeze upper lobe no rales otherwise clear Abdomen: Soft and non-tender. Skin: Skin warm and dry. Normal skin color. Normal skin turgor. Extremities: No lower extremity edema. Neuro: Oriented X 3. No motor deficit. No sensory deficit. Medical Decision Making Medical Decision Making MDM Narrative: 57 yo female with PMH of KENDRA, arthritis, asthma, LBBB, gastroparesis here with c/o asthma exacerbation and improved wheeze after INH she has no fevers or sputum production to suggest infection - she feels better after treatment. she notes some resolved chest pain that was sharp with coughing and breathing that has resolved - she has no signs of DVT she is not tachycardic on testing and she has no symptoms now I do not think she has a PE she has hx of same in past with her asthma. Differential Diagnosis Differential Diagnoses: The differential diagnosis associated with the presentation includes asthma, viral bronchitis Admission/Observation Consideration of admission/observation: Escalation of care including admission/observation considered no hypoxia, symptoms resolved, EKG unchanged and negative trop > 6 hours from onset Lab Data MDM Lab Attestation statement: I reviewed the patient's lab results. 10/25/22 19:42 10/25/22 19:42 Labs: Lab Results 10/25/22 10/25/22 10/25/22 Range/Units 19:42 19:42 19:42 WBC 9.4 (4.8-10.8) X10*3/uL RBC 4.15 L (4.20-5.50) X10*6/uL Hgb 11.5 L (12.0-16.0) g/dl Hct 35.6 L (37.0-47.0) % MCV 85.8 (80.0-98.0) fL MCH 27.7 (27.0-33.0) pg MCHC 32.3 (31.0-35.0) g/dl RDW 13.1 (11.0-16.0) % Plt Count 339 (160-400) X10*3/uL MPV 8.8 L (9.4-12.3) fL Immature Gran % (Auto) 0.3 (0.0-0.4) % Neut % (Auto) 70.2 (45-73) % Lymph % (Auto) 15.6 L (20-40) % Jones % (Auto) 7.4 (2-11) % Eos % (Auto) 6.0 H (0-4) % Baso % (Auto) 0.5 (0-2) % Lymph # (Auto) 1.5 (1.2-4.9) X10*3/uL Jones # (Auto) 0.7 (0.1-1.2) X10*3/uL Eos # (Auto) 0.6 H (0.0-0.4) X10*3/uL Baso # (Auto) 0.1 (0.0-0.2) X10*3/uL Abs Immat Gran (auto) 0.03 (0.00-0.03) X10*3/uL Absolute Neuts (auto) 6.6 (2.0-8.3) x10*3/uL Absolute Nucleated RBC 0.000 (0.0-0.012) X10*3/uL Nucleated RBC % (auto) 0.0 (0.0-0.2) /100WBC Sodium 137 (135-145) mmol/L Potassium 4.6 (3.3-5.1) mmol/L Chloride 102 (96-108) mmol/L Carbon Dioxide 24 (22-29) mmol/L Anion Gap 16 (12-20) BUN 28 H (9-16) mg/dL Creatinine 0.82 (0.5-1.4) mg/dL Estim Creat Clear Calc 84.6 Estimated GFR > 60 Random Glucose 123 H (60-115) mg/dL Calcium 9.2 (8.4-10.2) mg/dL Total Bilirubin 0.3 (0.0-1.0) mg/dL AST 15 (5-31) U/L ALT 20 (0-31) U/L Alkaline Phosphatase 141 H (39-117) U/L Troponin I High Sens < 2.7 (<3.5-17.0) ng/L Total Protein 7.6 (6.5-8.0) g/dL Albumin 4.0 (3.5-5.0) g/dL Independent Interpretation I performed an independent interpretation of an: EKG Interpretation: Rate: 81 Rhythm: NSR Marion: left Normal P waves. Normal EMMY. LBBB ST T wave : no CAROL, inverted T waves in I and aVL qTC: normal prior studies: unchanged The study has been interpreted contemporaneously by me. . External Record Review External record reviewed: Inpatient record Tests considered The following testing was considered but not selected: CXR - clear lungs no infectious symptoms doubt pneumonia Prescription Management I considered prescription management with: Other Discharge Plan Discharge Clinical Impression: Atypical chest pain Asthma Qualifiers: Asthma severity: moderate Asthma persistence: persistent Asthma complication type: with acute exacerbation Qualified Code(s): J45.41 - Moderate persistent asthma with (acute) exacerbation Patient Disposition: Home, Self-Care Instructions: Asthma (ED) Additional Instructions: return for fevers, worsening pain, dizziness, fainting or any other concerns. Prescriptions: New prednisone 20 mg tablet 40 mg PO DAILY 5 Days Qty: 10 0RF No Action ondansetron HCl [Zofran] 4 mg tablet 4 mg PO Q8H PRN (Reason: nausea and vomiting) Qty: 7 0RF metoprolol succinate [Toprol XL] 25 mg tablet extended release 24 hr 25 mg PO DAILY Qty: 30 1RF albuterol sulfate [ProAir HFA] 90 mcg/actuation HFA aerosol inhaler 2 puff inhalation Q4-6H PRN (Reason: Wheezing) Qty: 8.5 0RF meloxicam 15 mg tablet 15 mg PO DAILY Qty: 10 0RF hydrochlorothiazide 12.5 mg tablet 12.5 mg PO DAILY cetirizine 10 mg tablet 10 mg PO DAILY pseudoephedrine HCl [Sudogest] 30 mg tablet 60 mg PO Q4-6H PRN clonidine HCl 0.1 mg tablet 0.1 mg PO BID naloxone [Narcan] 4 mg/actuation spray,non-aerosol 0 spray intranasal loperamide [Anti-Diarrheal (loperamide)] 2 mg tablet 2 mg PO Q4H PRN (Reason: diarrhea) Anoro Ellipta 62.5-25 mcg/actuation blister with device 1 inh inhalation DAILY 30 Days Qty: 1 6RF buprenorphine-naloxone [Suboxone] 8-2 mg film 10 mg sublingual BID docusate sodium 100 mg capsule 100 mg PO
[2022-10-25 21:54] VITALS: PULSE 84; RESP 16; O2SAT 94
[2022-10-25] MEDS: Albuterol/Iprat 2.5/0.5MG 3 ML AMPUL.NEB INHALE (21:54)
[2022-10-25] MEDS: predniSONE 20 MG TABLET 60 MG PO (22:00)
== END 2022-10-25 22:20 | disposition home or self-care (01) ==
PROVIDERS: Emergency Provider Emergency Medicine
DX: R07.89 Other chest pain (principal); J45.41 Moderate persistent asthma with (acute) exacerbation; I44.7 Left bundle-branch block, unspecified; I10 Essential (primary) hypertension; F11.20 Opioid dependence, uncomplicated; Z79.899 Other long term (current) drug therapy
CPT/HCPCS: 36415; 80053; 84484; 85025; 93005; 94640; 99284; 99285

== ENCOUNTER → 2022-10-25 18:38 | Outpatient (BNV) | payer MEDICAID, SELFPAY | PROVIDERS: Emergency Provider Emergency Medicine; Visit Provider Internal Medicine | DX: R94.31 Abnormal electrocardiogram [ECG] [EKG] (principal); R07.9 Chest pain, unspecified | CPT/HCPCS: 93010 ==

== ENCOUNTER 2022-11-11 16:25 | Emergency (ER) | payer MEDICAID, SELFPAY ==
--- NOTE | 2022-11-11 | ECG_ITS ---
Test Reason : Chest pain Blood Pressure : / mmHG Vent. Rate : 078 BPM Atrial Rate : 078 BPM P-R Int : 146 ms QRS Dur : 134 ms QT Int : 408 ms P-R-T Axes : 049 -26 091 degrees QTc Int : 465 ms Normal sinus rhythm Left bundle branch block Abnormal ECG When compared with ECG of 25-OCT-2022 18:51, No significant change was found Referred By: Generic ED Physician Electronically Signed By:LOUISE GONZALEZ
--- NOTE | ~2022-11-11 | XR_ITS ---
EXAMINATION: XR CHEST CLINICAL INFORMATION: Pain COMPARISON: 10/07/2022. TECHNIQUE: Frontal view of the chest was obtained. FINDINGS: The cardiomediastinal silhouette is stable. There is no focal lung consolidation or pleural effusion. The bony structures and soft tissues are unremarkable. XR/XR chest 1V IMPRESSION: No active cardiopulmonary disease.
[2022-11-11 16:31] VITALS: BP 122/66; BP 124/68; PULSE 86; PULSE 95; RESP 16; TEMP 36.3; O2SAT 95; O2SAT 96; BMI 33.5
--- NOTE | 2022-11-11 16:49 | PC.NURSE ---
BIBA for c/o left sided chest pain that radiates down left arm w/ numbness/ tingling. Has been occurring off and on for a month. Today has been happening for about two hours. Pt reported that she drank one nip prior to coming in after being in sobriety for 2 years. Pt calm and coopertive. placed on bedside monitor. Resting quietly in bed. No apparent distress.
--- NOTE | 2022-11-11 16:52 | ED.CHESTPAIN ---
HPI - Chest Pain General Chief Complaint: Chest Pain Stated Complaint: L SIDED CHEST PAIN Time Seen by Provider: 11/11/22 16:47 Source: patient Mode of arrival: ambulatory Limitations: no limitations History of Present Illness HPI narrative: 57-year-old female presented to the ED for evaluation of chest pain, patient describes chest pain as left-sided with no radiation pain has been constant since it started this morning, describes the pain as dull aching pain localized to the chest started at a 7/10 now it is about 5/10, no clear relieving or exacerbating features, pain is not associated with nausea, vomiting or shortness of breath, patient get this pain frequently at least once a month had a previous workup for similar pain which was negative, patient quit smoking 1 year ago, quit drinking alcohol 2 years ago patient admitted to drinking today. No recent travel, no prolonged immobilization, no lower extremities tenderness or swelling. Related Data Home Medications Medication Instructions Recorded Confirmed cetirizine 10 mg tablet 10 mg PO DAILY 08/28/21 10/15/22 clonidine HCl 0.1 mg tablet 0.1 mg PO BID 08/28/21 10/15/22 hydrochlorothiazide 12.5 mg tablet 12.5 mg PO DAILY 08/28/21 10/15/22 loperamide 2 mg tablet 2 mg PO Q4H PRN diarrhea 08/28/21 10/15/22 (Anti-Diarrheal (loperamide)) naloxone 4 mg/actuation nasal 0 spray intranasal 08/28/21 10/15/22 spray (Narcan) pseudoephedrine HCl 30 mg tablet 60 mg PO Q4-6H PRN 08/28/21 10/15/22 (Sudogest) buprenorphine 8 mg-naloxone 2 mg 10 mg sublingual BID 10/15/22 10/15/22 sublingual film (Suboxone) docusate sodium 100 mg capsule 100 mg PO constipation 10/15/22 10/15/22 Previous Rx's Medication Instructions Recorded ondansetron HCl 4 mg tablet 4 mg PO Q8H PRN nausea and 10/27/20 (Zofran) vomiting #7 tabs albuterol sulfate 90 mcg/actuation 2 puff inhalation Q4-6H PRN 12/19/20 aerosol inhaler (ProAir HFA) Wheezing #8.5 grams metoprolol succinate 25 mg 25 mg PO DAILY #30 tabs 05/13/21 tablet,extended release 24 hr (Toprol XL) umeclidinium 62.5 mcg-vilanterol 1 inh inhalation DAILY 30 days #1 08/28/21 25 mcg/actuation powdr for ea inhalation (Anoro Ellipta) meloxicam 15 mg tablet 15 mg PO DAILY #10 tabs 10/07/22 prednisone 20 mg tablet 40 mg PO DAILY 5 days #10 tabs 10/25/22 Allergies Allergy/AdvReac Type Severity Reaction Status Date / Time lisinopril Allergy Severe Angioedema Verified 11/11/22 16:38 hydroxyzine [HYDROXYZINE] AdvReac Intermediate reports Verified 11/11/22 16:38 redness and swelling Review of Systems Review of Systems: All other systems are reviewed and are negative Constitutional: Reports as per HPI and Reports no additional constitutional complaints Eyes: Reports as per HPI and Reports no additional eye complaints Reports system reviewed and no additional complaints, except as documented Cardiovascular: Reports as per HPI and Reports no additional cardiovascular complaints Respiratory: Reports as per HPI and Reports no additional respiratory complaints Gastrointestinal: Reports as per HPI and Reports no additional gastrointestinal complaints Genitourinary: Reports no additional female genitourinary complaints Musculoskeletal: Reports no additional musculoskeletal complaints Skin/Breast: Reports system reviewed and no additional complaints, except as docu Psychiatric: Reports no additional psychiatric complaints Endocrine: Reports no additional endocrine complaints Hematologic/Lymphatic: Reports no additional hematologic/lymphatic complaints Allergic/Immunologic: Reports no additional allergic/immunologic complaints Reports system reviewed and no additional complaints, except as documented and Reports Abnormal speech present PMFSH Past Medical History Medical History Angioedema Anxiety Asthma Chronic back pain Chronic knee pain Depression History of alcohol dependence History of fatty infiltration of liver History of heroin use History of left bundle branch block (LBBB) History of opioid abuse History of panic disorder History of seizure HTN (hypertension) Left against medical advice Migraine Surgical History Hx of colonoscopy Hx of exploratory laparotomy Family History Family History Mother Heart disease Arthritis HTN (hypertension) Social History Social History Household Members: None Housing: House Do you presently have visiting nurse or other home services: No Alcohol intake: current Alcohol intake frequency: does not drink Patient Tobacco Use Status: Former Tobacco user Quit Date: 2021 Smoked: 10 +/- Substance Use Type: Heroin, Opiates and Painkillers Advance Directives: No Advance Directives Information Provided: No service: No Current occupational status: unemployed Physical Exam Vital Signs: Vital Signs: Last Vital Signs Temp 97.4 F 11/11/22 16:31 Pulse 90 11/11/22 18:14 Resp 14 11/11/22 18:14 BP 114/62 11/11/22 18:14 Pulse Ox 96 11/11/22 18:14 O2 Del Method Room Air 11/11/22 18:14 BMI result Body Mass Index 33.5 Vital signs have been reviewed as appeared to be correct. Blood pressure normal. Heart rate normal. Respiration rate normal. Temperature normal. Oxygen saturation normal. Appearance: Alert. Oriented X3. No acute distress. Head: Normal external exam. Normocephalic. Atraumatic. No Naik signs noted. No raccoon eyes noted Eyes: PERRLA. EOMI. Conjunctiva and sclera normal. Eyelids normal. ENT: TM's Normal. Pharynx normal. Uvula midline. Moist mucous membranes. No trismus noted. No drooling noted. No muffled voice noted. Neck: Normal inspection. Neck supple. FROM. No adenopathy. Thyroid Normal. No meningeal signs. No neck mass noted. CVS: Normal heart rate and rhythm. Heart sound normal. No murmurs noted. Pulses normal throughout. Respiratory: No respiratory distress. Painless inspiration. Breath sounds normal. No wheezes/rales/rhonchi noted. Chest nontender. No accessory muscle usage noted or decreased air movement noted. Abdomen: Soft and nontender. Bowel sounds normal in all 4 quadrants. No distention noted. No organomegaly noted. No visible injury noted. Back: No CVA tenderness. Full range of motion noted. Skin: Skin warm and dry. Normal skin color. Normal skin turgor. No rashes/lesions/lacerations noted. Extremities: No lower extremity edema. Extremities exhibit normal range of motion. Extremities nontender. Neuro: Oriented X 3. Cranial nerve exam: II-XII are grossly intact No motor deficit. No sensory deficit. Reflexes normal. Course Course Course Narrative: 57-year-old female came in for evaluation of chest pain, patient with low heart score, no risk for pulmonary embolism with negative D-dimer, chest x-ray is unremarkable for other intrathoracic pathology. Will reassure and discharge home with close follow-up with PCP. Medical Decision Making Differential Diagnosis Differential Diagnoses: The differential diagnosis associated with the presentation includes (ACS, pulmonary embolism, pneumonia, pneumothorax, pleural effusion, rib fracture, electrolyte abnormality, severe anemia.) Admission/Observation Consideration of admission/observation: Escalation of care including admission/observation considered Lab Data MDM Lab Attestation statement: I reviewed the patient's lab results. 11/11/22 17:40 11/11/22 17:40 Labs: Lab Results 11/11/22 11/11/22 11/11/22 Range/Units 17:40 17:40 17:40 WBC 9.8 (4.8-10.8) X10*3/uL RBC 4.39 (4.20-5.50) X10*6/uL Hgb 12.2 (12.0-16.0) g/dl Hct 37.8 (37.0-47.0) % MCV 86.1 (80.0-98.0) fL MCH 27.8 (27.0-33.0) pg MCHC 32.3 (31.0-35.0) g/dl RDW 12.8 (11.0-16.0) % Plt Count 338 (160-400) X10*3/uL MPV 8.9 L (9.4-12.3) fL Immature Gran % (Auto) 0.3 (0.0-0.4) % Neut % (Auto) 80.0 H (45-73) % Lymph % (Auto) 10.6 L (20-40) % [place] % (Auto) 5.3 (2-11) % Eos % (Auto) 3.3 (0-4) % Baso % (Auto) 0.5 (0-2) % Lymph # (Auto) 1.0 L (1.2-4.9) X10*3/uL [place] # (Auto) 0.5 (0.1-1.2) X10*3/uL Eos # (Auto) 0.3 (0.0-0.4) X10*3/uL Baso # (Auto) 0.1 (0.0-0.2) X10*3/uL Abs Immat Gran (auto) 0.03 (0.00-0.03) X10*3/uL Absolute Neuts (auto) 7.8 (2.0-8.3) x10*3/uL Absolute Nucleated RBC 0.000 (0.0-0.012) X10*3/uL Nucleated RBC % (auto) 0.0 (0.0-0.2) /100WBC D-Dimer High Sensitivty NG/ML Sodium 137 (135-145) mmol/L Potassium 4.5 (3.3-5.1) mmol/L Chloride 101 (96-108) mmol/L Carbon Dioxide 26 (22-29) mmol/L Anion Gap 15 (12-20) BUN 21 H (9-16) mg/dL Creatinine 0.79 (0.5-1.4) mg/dL Estim Creat Clear Calc 82.5 Estimated GFR > 60 Random Glucose 104 (60-115) mg/dL Calcium 9.9 D (8.4-10.2) mg/dL Total Bilirubin 0.4 (0.0-1.0) mg/dL Direct Bilirubin 0.1 (0.0-0.5) mg/dL AST 23 (5-31) U/L ALT 28 (0-31) U/L Alkaline Phosphatase 141 H (39-117) U/L Troponin I High Sens 3.4 (<3.5-17.0) ng/L B-Natriuretic Peptide (<100) pg/mL Total Protein 8.1 H (6.5-8.0) g/dL Albumin 4.2 (3.5-5.0) g/dL Lipase 9 (8-78) U/L Ethyl Alcohol mg/dL 11/11/22 11/11/22 11/11/22 Range/Units 17:40 17:40 18:49 WBC (4.8-10.8) X10*3/uL RBC (4.20-5.50) X10*6/uL Hgb (12.0-16.0) g/dl Hct (37.0-47.0) % MCV (80.0-98.0) fL MCH (27.0-33.0) pg MCHC (31.0-35.0) g/dl RDW (11.0-16.0) % Plt Count (160-400) X10*3/uL MPV (9.4-12.3) fL Immature Gran % (Auto) (0.0-0.4) % Neut % (Auto) (45-73) % Lymph % (Auto) (20-40) % [place] % (Auto) (2-11) % Eos % (Auto) (0-4) % Baso % (Auto) (0-2) % Lymph # (Auto) (1.2-4.9) X10*3/uL [place] # (Auto) (0.1-1.2) X10*3/uL Eos # (Auto) (0.0-0.4) X10*3/uL Baso # (Auto) (0.0-0.2) X10*3/uL Abs Immat Gran (auto) (0.00-0.03) X10*3/uL Absolute Neuts (auto) (2.0-8.3) x10*3/uL Absolute Nucleated RBC (0.0-0.012) X10*3/uL Nucleated RBC % (auto) (0.0-0.2) /100WBC D-Dimer High Sensitivty < 150 NG/ML Sodium (135-145) mmol/L Potassium (3.3-5.1) mmol/L Chloride (96-108) mmol/L Carbon Dioxide (22-29) mmol/L Anion Gap (12-20) BUN (9-16) mg/dL Creatinine (0.5-1.4) mg/dL Estim Creat Clear Calc Estimated GFR Random Glucose (60-115) mg/dL Calcium (8.4-10.2) mg/dL Total Bilirubin (0.0-1.0) mg/dL Direct Bilirubin (0.0-0.5) mg/dL AST (5-31) U/L ALT (0-31) U/L Alkaline Phosphatase (39-117) U/L Troponin I High Sens (<3.5-17.0) ng/L B-Natriuretic Peptide 22 (<100) pg/mL Total Protein (6.5-8.0) g/dL Albumin (3.5-5.0) g/dL Lipase (8-78) U/L Ethyl Alcohol < 10 mg/dL Independent Interpretation I performed an independent interpretation of an: EKG (Normal sinus rhythm at 70 beats per minute, left BBB, no change from previous EKG.) and Plain X-Ray (No active cardiopulmonary disease.) Radiology Impression Discussion of test interpretation with radiology: I have reviewed the radiologist's reading. Discharge Plan Discharge Clinical Impression: Chest pain, Atypical chest pain Patient Disposition: Home, Self-Care Instructions: Chest Pain (ED) Prescriptions: No Action ondansetron HCl [Zofran] 4 mg tablet 4 mg PO Q8H PRN (Reason: nausea and vomiting) Qty: 7 0RF metoprolol succinate [Toprol XL] 25 mg tablet extended release 24 hr 25 mg PO DAILY Qty: 30 1RF albuterol sulfate [ProAir HFA] 90 mcg/actuation HFA aerosol inhaler 2 puff inhalation Q4-6H PRN (Reason: Wheezing) Qty: 8.5 0RF meloxicam 15 mg tablet 15 mg PO DAILY Qty: 10 0RF prednisone 20 mg tablet 40 mg PO DAILY 5 Days Qty: 10 0RF hydrochlorothiazide 12.5 mg tablet 12.5 mg PO DAILY cetirizine 10 mg tablet 10 mg PO DAILY pseudoephedrine HCl [Sudogest] 30 mg tablet 60 mg PO Q4-6H PRN clonidine HCl 0.1 mg tablet 0.1 mg PO BID naloxone [Narcan] 4 mg/actuation spray,non-aerosol 0 spray intranasal loperamide [Anti-Diarrheal (loperamide)] 2 mg tablet 2 mg PO Q4H PRN (Reason: diarrhea) Anoro Ellipta 62.5-25 mcg/actuation blister with device 1 inh inhalation DAILY 30 Days Qty: 1 6RF buprenorphine-naloxone [Suboxone] 8-2 mg film 10 mg sublingual BID docusate sodium 100 mg capsule 100 mg PO Referrals: [facility] [Primary Care Provider] -
[2022-11-11 17:46] LABS: MANUAL DIFF FLAG NO
[2022-11-11 17:53] LABS: Basophils Absolute Auto 0.1 X10*3/uL (0.0-0.2); Basophils Percent Auto 0.5 % (0-2); Eosinophils Absolute Auto 0.3 X10*3/uL (0.0-0.4); Eosinophils Percent Auto 3.3 % (0-4); Hematocrit 37.8 % (37.0-47.0); Hemoglobin 12.2 g/dl (12.0-16.0); Imm Gran Abs Auto 0.03 X10*3/uL (0.00-0.03); Imm Gran Pct Auto 0.3 % (0.0-0.4); Lymphocytes Percent Auto 10.6 % (20-40); Mean Corpuscular HGB Conc 32.3 g/dl (31.0-35.0); Mean Corpuscular Hemoglobin 27.8 pg (27.0-33.0); Mean Corpuscular Volume 86.1 fL (80.0-98.0); Mean Platelet Volume 8.9 fL (9.4-12.3); Monocytes Absolute Auto 0.5 X10*3/uL (0.1-1.2); Monocytes Percent Auto 5.3 % (2-11); Neutrophils Absolute Auto 7.8 x10*3/uL (2.0-8.3); Platelet Count 338 X10*3/uL (160-400); Red Blood Count 4.39 X10*6/uL (4.20-5.50); Red Cell Distribution Width 12.8 % (11.0-16.0); White Blood Count 9.8 X10*3/uL (4.8-10.8)
[2022-11-11 18:01] LABS: Alanine Aminotransferase 28 U/L (0-31); Albumin Level 4.2 g/dL (3.5-5.0); Alkaline Phosphatase 141 U/L (39-117); Anion Gap 15 (12-20); Aspartate Amino Transferase 23 U/L (5-31); Bilirubin Direct 0.1 mg/dL (0.0-0.5); Bilirubin Total 0.4 mg/dL (0.0-1.0); Blood Urea Nitrogen 21 mg/dL (9-16); Calcium 9.9 mg/dL (8.4-10.2); Carbon Dioxide 26 mmol/L (22-29); Chloride 101 mmol/L (96-108); Creatinine Clr Calc Pharmacy 82.5; Estimated Glomerular Filt Rate > 60; Glucose Random 104 mg/dL (60-115); Lipase 9 U/L (8-78); Potassium 4.5 mmol/L (3.3-5.1); Sodium 137 mmol/L (135-145); Total Protein 8.1 g/dL (6.5-8.0)
[2022-11-11 18:03] LABS: Ethanol < 10 mg/dL
[2022-11-11 18:08] LABS: Troponin-I High Sensitivity 3.4 ng/L (<3.5-17.0)
[2022-11-11 18:14] VITALS: BP 114/62; PULSE 90; RESP 14; O2SAT 96
[2022-11-11 19:06] LABS: D Dimer High Sensitivity < 150 NG/ML
[2022-11-11 19:06] LABS: Appearance Urine Clear; Color Urine Yellow; Glucose Urine UA Negative (Negative); Leukocyte Esterase Urine Negative (Negative); Nitrite Urine Negative (Negative); Specific Gravity - Urine <= 1.005 (1.005-1.025); Urine Blood Negative (Negative); Urine Ketones Negative (Negative); Urine Protein Negative (Neg-Trace)
[2022-11-11 19:28] LABS: B Type Natriuretic Peptide 22 pg/mL (<100)
== END 2022-11-11 19:56 | disposition home or self-care (01) ==
PROVIDERS: Emergency Provider Emergency Medicine
DX: R07.89 Other chest pain (principal); I10 Essential (primary) hypertension; Z87.891 Personal history of nicotine dependence; Z79.899 Other long term (current) drug therapy
CPT/HCPCS: 36415; 71045; 80048; 80076; 80307; 81003; 83690; 83880; 84484; 85025; 85379; 93005; 99283; 99284

== ENCOUNTER 2023-01-18 18:43 | Emergency (ER) | payer MEDICAID, SELFPAY ==
[2023-01-18 18:51] VITALS: BP 114/76; PULSE 100; O2SAT 94; BMI 41.9
--- NOTE | 2023-01-18 18:56 | ECG_ITS ---
Test Reason : CHEST PAIN Blood Pressure : / mmHG Vent. Rate : 071 BPM Atrial Rate : 071 BPM P-R Int : 142 ms QRS Dur : 106 ms QT Int : 386 ms P-R-T Axes : 043 -07 -14 degrees QTc Int : 419 ms Sinus rhythm with frequent Premature ventricular complexes Moderate voltage criteria for LVH, may be normal variant ( R in aVL , Rogers product ) Nonspecific ST and T wave abnormality Abnormal ECG When compared with ECG of 11-NOV-2022 16:46, Premature ventricular complexes are now Present Left bundle branch block is intermittent Referred By: Generic ED Physician Electronically Signed By:NORM FINNEY MD
[2023-01-18 18:58] VITALS: BP 106/64; PULSE 86; RESP 14; TEMP 36.9; O2SAT 93
[2023-01-18 19:04] LABS: MANUAL DIFF FLAG NO
[2023-01-18 19:05] LABS: Basophils Absolute Auto 0.1 X10*3/uL (0.0-0.2); Basophils Percent Auto 0.9 % (0-2); Eosinophils Absolute Auto 0.4 X10*3/uL (0.0-0.4); Eosinophils Percent Auto 6.6 % (0-4); Hemoglobin 12.1 g/dl (12.0-16.0); Imm Gran Abs Auto 0.02 X10*3/uL (0.00-0.03); Imm Gran Pct Auto 0.3 % (0.0-0.4); Lymphocytes Absolute Auto 1.6 X10*3/uL (1.2-4.9); Lymphocytes Percent Auto 24.4 % (20-40); Mean Corpuscular HGB Conc 32.7 g/dl (31.0-35.0); Mean Corpuscular Hemoglobin 27.6 pg (27.0-33.0); Mean Corpuscular Volume 84.3 fL (80.0-98.0); Mean Platelet Volume 8.7 fL (9.4-12.3); Monocytes Absolute Auto 0.5 X10*3/uL (0.1-1.2); Monocytes Percent Auto 8.1 % (2-11); Neutrophils Percent Auto 59.7 % (45-73); Platelet Count 316 X10*3/uL (160-400); Red Blood Count 4.39 X10*6/uL (4.20-5.50); Red Cell Distribution Width 13.6 % (11.0-16.0); White Blood Count 6.7 X10*3/uL (4.8-10.8)
[2023-01-18 19:19] LABS: Anion Gap 16 (12-20); Blood Urea Nitrogen 14 mg/dL (9-16); Calcium 9.2 mg/dL (8.4-10.2); Carbon Dioxide 22 mmol/L (22-29); Chloride 105 mmol/L (96-108); Creatinine Clr Calc Pharmacy 93.5; Estimated Glomerular Filt Rate > 60; Glucose Random 109 mg/dL (60-115); Potassium 3.3 mmol/L (3.3-5.1); Sodium 140 mmol/L (135-145)
[2023-01-18 19:28] LABS: Troponin-I High Sensitivity 4.2 ng/L (<3.5-17.0)
--- NOTE | 2023-01-18 20:34 | ED_ITS ---
HPI - Chest Pain General Chief Complaint: Chest Pain Stated Complaint: CHEST PAIN , DIZZINESS Time Seen by Provider: 01/18/23 19:16 Source: patient Mode of arrival: EMS Limitations: no limitations History of Present Illness HPI narrative: Patient is a 57-year-old female who presents emergency department for evaluation of chest pain. She reports 2 days ago at 0500 began developing pain that is described as a sharp pain in the midsternal region 09/29 nonradiating occurring intermittently for approximately 30 minutes and then self-resolving. She states that occurs frequently throughout the day but cannot specify how frequently. She does status typically worse at night and while she is supine. She reports a history of GERD, with medication compliant on PPI, when asked she does states that it feels somewhat like heartburn but slightly different. Her symptoms were worse this evening and more painful which prompted her to come to the emergency department. She states last week she was treated with prednisone for exacerbation, she has continued to have a mild cough still. EMS administered aspirin and 1 nitro prior to arrival, she states that this did not change her symptoms. At this time she is currently symptom free. When asked, she denies headache, dizziness, lightheadedness, neck pain, jaw pain, shortness of breath, nausea, vomiting, abdominal pain, numbness or tingling of the extremities, weakness, lower extremity edema, erythema, warmth. Related Data Home Medications Medication Instructions Recorded Confirmed cetirizine 10 mg tablet 10 mg PO DAILY 08/28/21 10/15/22 clonidine HCl 0.1 mg tablet 0.1 mg PO BID 08/28/21 10/15/22 hydrochlorothiazide 12.5 mg tablet 12.5 mg PO DAILY 08/28/21 10/15/22 loperamide 2 mg tablet 2 mg PO Q4H PRN diarrhea 08/28/21 10/15/22 (Anti-Diarrheal (loperamide)) naloxone 4 mg/actuation nasal 0 spray intranasal 08/28/21 10/15/22 spray (Narcan) pseudoephedrine HCl 30 mg tablet 60 mg PO Q4-6H PRN 08/28/21 10/15/22 (Sudogest) buprenorphine 8 mg-naloxone 2 mg 10 mg sublingual BID 10/15/22 10/15/22 sublingual film (Suboxone) docusate sodium 100 mg capsule 100 mg PO constipation 10/15/22 10/15/22 Previous Rx's Medication Instructions Recorded ondansetron HCl 4 mg tablet 4 mg PO Q8H PRN nausea and 10/27/20 (Zofran) vomiting #7 tabs albuterol sulfate 90 mcg/actuation 2 puff inhalation Q4-6H PRN 12/19/20 aerosol inhaler (ProAir HFA) Wheezing #8.5 grams metoprolol succinate 25 mg 25 mg PO DAILY #30 tabs 05/13/21 tablet,extended release 24 hr (Toprol XL) umeclidinium 62.5 mcg-vilanterol 1 inh inhalation DAILY 30 days #1 08/28/21 25 mcg/actuation powdr for ea inhalation (Anoro Ellipta) meloxicam 15 mg tablet 15 mg PO DAILY #10 tabs 10/07/22 prednisone 20 mg tablet 40 mg (2 x 20 mg) PO DAILY 5 days 10/25/22 #10 tabs Allergies Allergy/AdvReac Type Severity Reaction Status Date / Time lisinopril Allergy Severe Angioedema Verified 11/11/22 16:38 hydroxyzine [HYDROXYZINE] AdvReac Intermediate reports Verified 11/11/22 16:38 redness and swelling Review of Systems 2 Review of Systems: Yes all other systems are reviewed and are negative [facility] Past Medical History Attestation statement: The following information was validated with the patient. Source: old records reviewed Medical History Left against medical advice Angioedema History of fatty infiltration of liver History of alcohol dependence History of heroin use Chronic knee pain Chronic back pain History of seizure History of panic disorder History of opioid abuse Depression HTN (hypertension) History of left bundle branch block (LBBB) Migraine Anxiety Asthma Surgical History Hx of exploratory laparotomy Hx of colonoscopy Family History Family History Mother Heart disease Arthritis HTN (hypertension) Social History Social History Household Members: None Housing: House Do you presently have visiting nurse or other home services: No Alcohol intake: current Alcohol intake frequency: does not drink Patient Tobacco Use Status: Former Tobacco user Quit Date: 2021 Smoked: 10 +/- Smoked in Last 30 Days: No Substance Use Type: Heroin, Opiates and Painkillers Advance Directives: No Advance Directives Information Provided: No service: No Current occupational status: unemployed Physical Exam 2 Vital Signs: Vital Signs: Last Vital Signs Temp 98.5 F 01/18/23 18:58 Pulse 86 01/18/23 18:58 Resp 14 01/18/23 18:58 BP 106/64 01/18/23 18:58 Pulse Ox 93 01/18/23 18:58 O2 Del Method Room Air 01/18/23 18:58 BMI result Body Mass Index 41.9 Appearance: Alert.?Oriented to person, place and time. No acute distress.?Normal affect. Eyes: Pupils equal, round and reactive to light.? ENT: Pharynx normal.?? Neck: Normal inspection.? Neck supple.?? CVS: Heart sounds normal. Normal heart rate and rhythm.? Pulses normal.?? Respiratory: No respiratory distress.? Lung sounds clear to auscultation bilaterally?? Abdomen: Soft and non-tender. Normoactive bowel sounds. .?? Skin: Skin warm and dry.? Normal skin color.? Extremities: No lower extremity edema.? No calf ttp? Neuro: Moves all extremities spontaneously. Sensation intact bilaterally. No focal neuro deficits. Ambulates with normal steady gait. Medical Decision Making Medical Decision Making MDM Narrative: Patient is 57-year-old female who presents emergency department for evaluation of chest pain shortness of breath or cough over the past 2 days as per HPI. At the time my examination she is overall well-appearing, nontoxic, afebrile, without tachycardia. She speaking clear full sentences. Wells score negative for PE. Discussed with patient possibility of pneumonia given recent asthma exacerbation/URI symptoms, she declines to have chest x-ray obtained. Lung sounds are clear bilaterally. I discussed etiology for possible current as well, she was offered treatment for this she however declines given she is currently asymptomatic. She reports she only wanted to know whether she was having a heart attack. Reviewed her labs CBC is without leukocytosis or anemia, BMP is unremarkable. High sensitive troponin 4.2 which is consistent with baseline, given duration of her symptoms I do not suspect ACS at this time, EKG revealing in sinus rhythm with left bundle-branch block ventricular rate of 78, QTC 465, consistent with prior EKGs no acute ischemic findings. Discussed worrisome signs and symptoms that would warrant re-evaluation in the emergency department, at this time feel that patient is stable for discharge home as per her request and outpatient follow-up with her primary care provider Differential Diagnosis Differential Diagnoses: The differential diagnosis associated with the presentation includes (As noted above) Admission/Observation Consideration of admission/observation: Escalation of care including admission/observation considered (Considered admission for chest see course narrative above, patient was discharged) Lab Data MDM Lab Attestation statement: I reviewed the patient's lab results. (See narrative above) 01/18/23 19:01 01/18/23 19:01 Labs: Lab Results 01/18/23 Range/Units 19:01 WBC 6.7 (4.8-10.8) X10*3/uL RBC 4.39 (4.20-5.50) X10*6/uL Hgb 12.1 (12.0-16.0) g/dl Hct 37.0 (37.0-47.0) % MCV 84.3 (80.0-98.0) fL MCH 27.6 (27.0-33.0) pg MCHC 32.7 (31.0-35.0) g/dl RDW 13.6 (11.0-16.0) % Plt Count 316 (160-400) X10*3/uL MPV 8.7 L (9.4-12.3) fL Immature Gran % (Auto) 0.3 (0.0-0.4) % Neut % (Auto) 59.7 (45-73) % Lymph % (Auto) 24.4 (20-40) % Weston % (Auto) 8.1 (2-11) % Eos % (Auto) 6.6 H (0-4) % Baso % (Auto) 0.9 (0-2) % Lymph # (Auto) 1.6 (1.2-4.9) X10*3/uL Weston # (Auto) 0.5 (0.1-1.2) X10*3/uL Eos # (Auto) 0.4 (0.0-0.4) X10*3/uL Baso # (Auto) 0.1 (0.0-0.2) X10*3/uL Abs Immat Gran (auto) 0.02 (0.00-0.03) X10*3/uL Absolute Neuts (auto) 4.0 (2.0-8.3) x10*3/uL Absolute Nucleated RBC 0.000 (0.0-0.012) X10*3/uL Nucleated RBC % (auto) 0.0 (0.0-0.2) /100WBC Sodium 140 (135-145) mmol/L Potassium 3.3 D (3.3-5.1) mmol/L Chloride 105 (96-108) mmol/L Carbon Dioxide 22 (22-29) mmol/L Anion Gap 16 (12-20) BUN 14 (9-16) mg/dL Creatinine 0.73 (0.5-1.4) mg/dL Estim Creat Clear Calc 93.5 Estimated GFR > 60 Random Glucose 109 (60-115) mg/dL Calcium 9.2 D (8.4-10.2) mg/dL Troponin I High Sens 4.2 (<3.5-17.0) ng/L Independent Interpretation I performed an independent interpretation of an: EKG (See narrative above) Independent Historian Clinical information obtained from an independent historian. History obtained from or confirmed by: EMS External Record Review External record reviewed: Outpatient record and Prior outpatient labs Chronic Conditions Patient?s care impacted by: Hypertension Discharge Plan Discharge Clinical Impression: Atypical chest pain Patient Disposition: Home, Self-Care Instructions: Chest Pain (ED), Chest Wall Pain (ED) Additional Instructions: As discussed, your labs an EKG today are reassuring. Your offered to have chest x-ray obtained PE however return on. Please follow-up with primary care provider within 1-3 days, you may return back to the emergency department any new or worsening symptoms or concerns. Prescriptions: No Action ondansetron HCl [Zofran] 4 mg tablet 4 mg PO Q8H PRN (Reason: nausea and vomiting) Qty: 7 0RF metoprolol succinate [Toprol XL] 25 mg tablet extended release 24 hr 25 mg PO DAILY Qty: 30 1RF albuterol sulfate [ProAir HFA] 90 mcg/actuation HFA aerosol inhaler 2 puff inhalation Q4-6H PRN (Reason: Wheezing) Qty: 8.5 0RF meloxicam 15 mg tablet 15 mg PO DAILY Qty: 10 0RF prednisone 20 mg tablet 40 mg PO DAILY 5 Days Qty: 10 0RF hydrochlorothiazide 12.5 mg tablet 12.5 mg PO DAILY cetirizine 10 mg tablet 10 mg PO DAILY pseudoephedrine HCl [Sudogest] 30 mg tablet 60 mg PO Q4-6H PRN clonidine HCl 0.1 mg tablet 0.1 mg PO BID naloxone [Narcan] 4 mg/actuation spray,non-aerosol 0 spray intranasal loperamide [Anti-Diarrheal (loperamide)] 2 mg tablet 2 mg PO Q4H PRN (Reason: diarrhea) Anoro Ellipta 62.5-25 mcg/actuation blister with device 1 inh inhalation DAILY 30 Days Qty: 1 6RF buprenorphine-naloxone [Suboxone] 8-2 mg film 10 mg sublingual BID docusate sodium 100 mg capsule 100 mg PO Referrals: Juani Sosa, [facility] [Primary Care Provider] -
[2023-01-18 20:44] VITALS: BP 113/61; PULSE 74; RESP 12; TEMP 36.6; O2SAT 96
== END 2023-01-18 20:56 | disposition home or self-care (01) ==
PROVIDERS: Emergency Provider Emergency Medicine; PCP Nurse Practitioner Primary Care
DX: R07.89 Other chest pain (principal); R42 Dizziness and giddiness; Z79.899 Other long term (current) drug therapy
CPT/HCPCS: 36415; 80048; 84484; 85025; 93005; 99285

== ENCOUNTER 2023-02-11 13:51 | Outpatient (AMB) | payer MEDICAID, SELFPAY ==
[2023-02-11 13:52] VITALS: BMI 41.8
--- NOTE | 2023-02-11 13:52 | A.OFFVIS_ITS ---
Intake Vital Signs 02/11/23 13:52 Height 5 ft 1 in Weight 221 lb BMI 41.8 Intake Visit Reasons: Right knee pain Intake Note: Gaby is a 57 year old female who presents with complaints of progressively worsening right knee pain. The patient describes her pain as sharp and severe in nature, 12/30. She did undergo right knee arthroscopic surgery several years ago. The patient got temporary relief from that procedure. Over the last year her symptoms have gotten worse in spite of continued non operative treatments. She has had multiple injections. The most recent injection gave her no relief. She has also tried Tylenol and anti-inflammatory medicines as well as Percocet which gave her minimal relief. The patient walks with a rolling walker because of her pain. The patient has difficulty walking even short distances. Her right knee pain is now interfering with her activities of daily living and her ability to sleep well through the night. Allergies lisinopril Allergy (Severe, Verified 02/11/23 13:53) Angioedema hydroxyzine [HYDROXYZINE] Adverse Reaction (Intermediate, Verified 02/11/23 13:53) reports redness and swelling Medication List - Last Reconciled 02/11/23 by Tim Mcdermott MD albuterol sulfate 90 mcg/actuation (ProAir HFA) 2 puffs inhalation Q4-6H PRN buprenorphine-naloxone 8-2 mg (Suboxone) 10 mg sublingual BID cetirizine 10 mg PO DAILY clonidine HCl 0.1 mg PO BID docusate sodium 100 mg PO hydrochlorothiazide 12.5 mg PO DAILY loperamide (Anti-Diarrheal (loperamide)) 2 mg PO Q4H PRN meloxicam 15 mg PO DAILY metoprolol succinate ER (Toprol XL) 25 mg PO DAILY naloxone 4 mg/actuation (Narcan) 0 sprays intranasal ondansetron HCl (Zofran) 4 mg PO Q8H PRN prednisone 40 mg (2 x 20 mg) PO DAILY 5 days pseudoephedrine HCl (Sudogest) 60 mg PO Q4-6H PRN umeclidinium-vilanterol 62.5-25 mcg/actuation (Anoro Ellipta) 1 inh inhalation DAILY 30 days [facility] Medical History Left against medical advice Angioedema History of fatty infiltration of liver History of alcohol dependence History of heroin use Chronic knee pain Chronic back pain History of seizure History of panic disorder History of opioid abuse Depression HTN (hypertension) History of left bundle branch block (LBBB) Migraine Anxiety Asthma Surgical History Hx of exploratory laparotomy Hx of colonoscopy Family History Mother Heart disease Arthritis HTN (hypertension) Household Members: None Housing: House Do you presently have visiting nurse or other home services: No Alcohol intake: current Alcohol intake frequency: does not drink Patient Tobacco Use Status: Former Tobacco user Quit Date: 2021 Smoked: 10 +/- Substance Use Type: Heroin, Opiates and Painkillers service: No Current occupational status: unemployed Physical Exam Vital Signs: BMI result Body Mass Index 41.8 Const Other: Well-nourished well-developed very friendly female awake alert and oriented x3 in no acute distress Extrem Other: Bilateral lower extremity examination shows good capillary refill, no skin lesions noted, normal sensation light touch Right knee examination shows a minimal effusion, palpable crepitus with range of motion, pain with range of motion, range of motion from -3 degrees to 115 degrees, no instability Results Reviewed Results Reviewed: X-rays of the patient's right knee show severe joint space narrowing with grade 4 [id number] arthritis in the patellofemoral joint, subchondral sclerosis, osteophyte formation, no acute bony abnormalities Assessment & Plan Assessment & Plan (1) Right knee pain: Code(s): M25.561 - Pain in right knee Plan Ms. Arteaga presents with progressively worsening right knee pain due to end- stage degenerative joint disease. I had a lengthy discussion with the patient regarding the treatment options. At this point she has failed continued non operative treatments as well as arthroscopic surgery. The risks and benefits of right total knee replacement surgery were discussed at length with the patient. The patient wishes to proceed. She will contact my office to pick a surgery date. I will see her back 1 week prior to her surgery to answer any final questions that she might have. Feel free to call me at any time should questions regarding her orthopedic management arise. Thank you very much for asking me to see this very friendly patient. I spent 22 minutes in reviewing the patient's records and imaging studies, seeing the patient and documenting in the medical record. Orders: Orders XR knee RT 3V Today M25.561 - Pain in right knee Coding Level of Care Code New Pt Level 2 (72980) Diagnoses Right knee pain M25.561
== END 2023-02-11 14:24 | disposition home or self-care (01) ==
PROVIDERS: PCP Nurse Practitioner Primary Care; Visit Provider Orthopaedic Surgery
DX: M25.561 Pain in right knee (principal)
CPT/HCPCS: 99202

== ENCOUNTER 2023-02-11 14:54 | Outpatient (REF) | payer MEDICAID, SELFPAY ==
--- NOTE | ~2023-02-11 | XR_ITS ---
EXAMINATION: XR KNEE, RIGHT CLINICAL INFORMATION: Pain COMPARISON: Right knee radiograph from 07/31/2010 TECHNIQUE: Four views of the right knee. FINDINGS: No acute visible fracture or dislocation. Moderate multicompartment arthritic changes. Moderate to severe narrowing of the medial femorotibial compartment. Slight subluxation medially of the femur in relation to the tibial plateau. Moderate narrowing of the lateral patellofemoral compartment. Particularly aspect along the distal femoral condyle, tibial plateau, and inferior margins of the patella. Joint space alignment are otherwise maintained. Trace knee joint effusion. Soft tissues are unremarkable. XR/XR knee RT 3V IMPRESSION: 1. No acute visible fracture or dislocation. 2. Moderate multicompartment arthritic changes with moderate to severe narrowing of the medial femorotibial compartment. 3. Trace knee joint effusion.
== END 2023-02-11 14:55 | disposition home or self-care (01) ==
LOC: HO.HOSX 14:54
PROVIDERS: Visit Provider Orthopaedic Surgery
DX: M25.561 Pain in right knee (principal)
CPT/HCPCS: 73562; 99202

== ENCOUNTER 2023-03-30 15:22 | Emergency (ER) | payer MEDICAID, SELFPAY ==
[2023-03-30 15:32] VITALS: BP 152/90; PULSE 84; O2SAT 97
[2023-03-30 16:07] VITALS: BP 112/65; PULSE 83; RESP 20; TEMP 37.1; O2SAT 92; BMI 34.6
--- NOTE | 2023-03-30 16:07 | ED.GENADULT ---
HPI - General Adult General Chief complaint: Upper Respiratory Symptoms Stated complaint: FLU LIKE SYMPTOMS + COVID Time Seen by Provider: 03/30/23 17:50 Source: patient, RN notes reviewed and old records reviewed Mode of arrival: ambulatory History of Present Illness HPI narrative: 57-year-old female w/ past medical history of HTN, migraines, anxiety, asthma, presenting to the ED c/o sore throat and headache x2 days. Admits called her PCP and was instructed to take home COVID-19 test which was positive then presented to the ED. Denies ear pain, cough, chest pain/shortness of breath, travel, sick contacts Related Data Home Medications Medication Instructions Recorded Confirmed cetirizine 10 mg tablet 10 mg PO DAILY 08/28/21 02/11/23 clonidine HCl 0.1 mg tablet 0.1 mg PO BID 08/28/21 02/11/23 hydrochlorothiazide 12.5 mg tablet 12.5 mg PO DAILY 08/28/21 02/11/23 loperamide 2 mg tablet 2 mg PO Q4H PRN diarrhea 08/28/21 02/11/23 (Anti-Diarrheal (loperamide)) naloxone 4 mg/actuation nasal 0 spray intranasal 08/28/21 02/11/23 spray (Narcan) pseudoephedrine HCl 30 mg tablet 60 mg PO Q4-6H PRN 08/28/21 02/11/23 (Sudogest) buprenorphine 8 mg-naloxone 2 mg 10 mg sublingual BID 10/15/22 02/11/23 sublingual film (Suboxone) docusate sodium 100 mg capsule 100 mg PO constipation 10/15/22 02/11/23 Previous Rx's Medication Instructions Recorded ondansetron HCl 4 mg tablet 4 mg PO Q8H PRN nausea and 10/27/20 (Zofran) vomiting #7 tabs albuterol sulfate 90 mcg/actuation 2 puff inhalation Q4-6H PRN 12/19/20 aerosol inhaler (ProAir HFA) Wheezing #8.5 grams metoprolol succinate 25 mg 25 mg PO DAILY #30 tabs 05/13/21 tablet,extended release 24 hr (Toprol XL) umeclidinium 62.5 mcg-vilanterol 1 inh inhalation DAILY 30 days #1 08/28/21 25 mcg/actuation powdr for ea inhalation (Anoro Ellipta) meloxicam 15 mg tablet 15 mg PO DAILY #10 tabs 10/07/22 prednisone 20 mg tablet 40 mg (2 x 20 mg) PO DAILY 5 days 10/25/22 #10 tabs Allergies Allergy/AdvReac Type Severity Reaction Status Date / Time lisinopril Allergy Severe Angioedema Verified 03/30/23 16:09 hydroxyzine [HYDROXYZINE] AdvReac Intermediate reports Verified 03/30/23 16:09 redness and swelling Review of Systems Review of Systems: Constitutional: No Fever, No Chills ENT/Mouth: No Ear Pain, +chrystal Congestion, No Sinus Pain, No Hoarseness, +sore throat, +Rhinorrhea, No Swallowing Difficulty Cardiovascular: No Chest Pain, No SOB Respiratory: No Cough, No Sputum, No Wheezing Gastrointestinal: No Nausea, No Vomiting, No Diarrhea, No Constipation, No Abdominal pain Musculoskeletal: No joint pain, No Myalgias, No Joint Swelling Skin: No Skin Lesions, No rash Neuro: No Weakness, No Numbness, No Paresthesias, +PADILLA Yes all other systems are reviewed and are negative Constitutional: Constitutional: Reports as per [facility] Past Medical History Attestation statement: The following information was validated with the patient. Source: old records reviewed Onset Date is defined in the Problem List Problems that require an onset date and time if occurred within 24 hrs of arrival to the ED Aortic Dissection and Rupture; Neurologic impairment; Cardiopulmonary Arrest; Endotracheal Intubation; Insertion or Replacement of Mechanical Circulatory Assist Device Medical History Left against medical advice Angioedema History of fatty infiltration of liver History of alcohol dependence History of heroin use Chronic knee pain Chronic back pain History of seizure History of panic disorder History of opioid abuse Depression HTN (hypertension) History of left bundle branch block (LBBB) Migraine Anxiety Asthma Surgical History Hx of exploratory laparotomy Hx of colonoscopy Family History Family History Mother Heart disease Arthritis HTN (hypertension) Social History Social History Household Members: None Housing: House Do you presently have visiting nurse or other home services: No Alcohol intake: current Alcohol intake frequency: does not drink Patient Tobacco Use Status: Former Tobacco user Quit Date: 2021 Years Smoked: 10 +/- Substance Use Type: Heroin, Opiates and Painkillers Advance Directives: No Advance Directives Information Provided: No service: No Current occupational status: unemployed Physical Exam ED Vital Signs: Vital Signs - 24 hr 03/30/23 16:07 Temperature 98.8 F Pulse Rate 83 Respiratory Rate 20 Blood Pressure 112/65 Pulse Oximetry 92 Oxygen Delivery Method Room Air BMI result Body Mass Index 34.6 Const General: cooperative, healthy appearing and no acute distress Orientation/consciousness: patient oriented x3 Limitations: no limitations HENMT Head: Yes normal to inspection and Yes atraumatic Ears: hearing grossly normal bilaterally and external ears normal General nose exam: Normal external nose present Face and sinus: Yes normal facial exam Mouth: Normal oral and palatal mucosa present and no drooling Throat: Yes tonsils normal, Yes uvula midline, Yes posterior oropharynx abnormal (Mild erythema), No uvula laterally displaced and No uvular edema Eyes General: appearance normal, both eyes and all related structures EOM: EOMs intact bilaterally Neck Neck: Yes normal visual inspection and Yes no meningeal signs Resp Effort & Inspection: normal respiratory effort and no respiratory distress Auscultation: clear to auscultation bilaterally, no crackles, no rales, no rhonchi and no wheezes Cardio Rate: regular rate Heart sounds: S1 normal heart sound present and S2 normal heart sound present Skin Rashes: no rashes Wounds: no wounds Neuro General: patient oriented x3, gait normal, tone normal, moves all extremities, no meningeal signs, no focal motor deficits and CN's II-XI intact bilaterally Cranial nerves: Yes CN's II-XII intact bilaterally Gait exam (Neuro): Normal gait present Extrem General: Yes normal to inspection Course Course Course Narrative: RME performed by Dana Berrios PA-C. Patient is a 57 year old assigned female at presenting to the emergency department with a headache and sore throat. Patient tested COVID-19 positive at home. Detailed physical exam and review of systems are deferred to the psychology clinician. Swabs ordered. Patient placed back in the waiting room pending room availability and results. -COVID-19 positive Results discussed with patient including worrisome signs and symptoms and strict return precautions, and when to return to the emergency department. They verbalized understanding and feel safe for discharge at this time. Medical Decision Making Medical Decision Making [facility] Narrative: 57-year-old female w/ past medical history of HTN, migraines, anxiety, asthma, presenting to the ED c/o sore throat and headache x2 days. On exam vital signs stable, NAD, nontoxic appearing, mild posterior oropharyngeal erythema, no exudates, talking in complete sentences. Lungs CTA. Concern for COVID-19 and strep pharyngitis/viral illness. Lower suspicion for ACS/PE, pneumonia or bronchitis. No evidence of BOTTOM WORKER/retropharyngeal abscess Plan: Viral testing, rapid strep Please refer to course for remaining clinical decision making, interpretation of labs/imaging results, and discussions with consultants and/or family members. Differential Diagnosis Differential Diagnoses: The differential diagnosis associated with the presentation includes As above Lab Data [facility] Lab Attestation statement: I reviewed the patient's lab results. Labs: Lab Results 03/30/23 Range/Units 16:18 Influenza Type A (PCR) NEGATIVE (Negative) Influenza Type B (PCR) NEGATIVE (Negative) RSV RNA Qual (PCR) NEGATIVE (Negative) SARS-CoV-2 RNA (RT-PCR) POSITIVE A (Negative) S. pyogenes GrpA KELLI Negative (Negative) External Record Review External record reviewed: Inpatient record, Office record, Outpatient record, Prior outpatient labs, Prior outpatient radiology, Primary care record and Outside ED record Tests considered The following testing was considered but not selected: As above Chronic Conditions Patient?s care impacted by: Other (KENDRA, LBBB) Discharge Plan Discharge Clinical Impression: COVID-19 Patient Disposition: Home, Self-Care Instructions: COVID-19 (Coronavirus Disease 2019) (ED) Additional Instructions: YOU HAVE COVID-19 At this time you will be okay for discharge. Please self isolate for 5 days. Do not expose yourself to others. You may not go to work or school. Please continue to follow cold instructions and wash your hands frequently. You may take Tylenol / Motrin as directed on the bottle for pain or fever. If you have constant or persistent shortness of breath, fever unresolved with medications, chest pain, or your unable to eat or drink please return to the ED CDC Guidelines for home isolation: - Stay away from others - WEAR A MASK if you are sick AND STAY HOME - Cover your mouth and nose with a tissue when you cough or sneeze. Dispose of tissues in a lined trash can and wash your hands immediately with soap and water for at least 20 seconds. If soap and water are not available, clean hands with alcohol-based hand brine tank tender that contains at least 60% alcohol. - Clean your hands often with soap and water for at least 20 seconds - Avoid touching your eyes, nose and mouth with unwashed hands - Do not share dishes, drinking glasses, cups, eating utensils, towels, or bedding with other people in your home. After using these items, wash them thoroughly with soap and water or put in the pulmonary fellow. - Clean high-touch surfaces in your isolation area ( sick room and bathroom) every day; let a caregiver clean and disinfect high-touch surfaces in other areas of the home. Clean the area or item with soap and water or another detergent if it is dirty. Then, use a household disinfectant. - Limit contact with pets and animals: If you must care for a pet, wash your hands before and after interacting with them) Prescriptions: No Action ondansetron HCl [Zofran] 4 mg tablet 4 mg PO Q8H PRN (Reason: nausea and vomiting) Qty: 7 0RF metoprolol succinate [Toprol XL] 25 mg tablet extended release 24 hr 25 mg PO DAILY Qty: 30 1RF albuterol sulfate [ProAir HFA] 90 mcg/actuation HFA aerosol inhaler 2 puff inhalation Q4-6H PRN (Reason: Wheezing) Qty: 8.5 0RF meloxicam 15 mg tablet 15 mg PO DAILY Qty: 10 0RF prednisone 20 mg tablet 40 mg PO DAILY 5 Days Qty: 10 0RF hydrochlorothiazide 12.5 mg tablet 12.5 mg PO DAILY cetirizine 10 mg tablet 10 mg PO DAILY pseudoephedrine HCl [Sudogest] 30 mg tablet 60 mg PO Q4-6H PRN clonidine HCl 0.1 mg tablet 0.1 mg PO BID naloxone [Narcan] 4 mg/actuation spray,non-aerosol 0 spray intranasal loperamide [Anti-Diarrheal (loperamide)] 2 mg tablet 2 mg PO Q4H PRN (Reason: diarrhea) Anoro Ellipta 62.5-25 mcg/actuation blister with device 1 inh inhalation DAILY 30 Days Qty: 1 6RF buprenorphine-naloxone [Suboxone] 8-2 mg film 10 mg sublingual BID docusate sodium 100 mg capsule 100 mg PO Referrals: Physician,Unknown J [Primary Care Provider] - Stand Alone Forms: Work/School Release
[2023-03-30 16:38] LABS: IDNOW Serial# 08D9AD1C; Strep A Nucleic Acid Negative (Negative)
[2023-03-30 17:41] LABS: Influenza A PCR NEGATIVE (Negative); Influenza B PCR NEGATIVE (Negative); Resp Syncy Virus RNA Qual PCR NEGATIVE (Negative); SARS COV2 PCR INHOUSE POSITIVE (Negative)
[2023-03-30 18:21] VITALS: BP 128/74; PULSE 78; RESP 20; TEMP 37; O2SAT 95
[2023-03-30] MEDS: Butalb/Acetamin/Caff 50/325/40 TABLET 1 TAB PO (19:05)
[2023-03-30] MEDS: Lidocaine HCl Viscous 2 % 15 ML SOLUTION 5 ML MUCOUS MEM (19:05)
== END 2023-03-30 19:07 | disposition home or self-care (01) ==
PROVIDERS: Physician Assistant Medical; Emergency Provider Emergency Medicine
DX: U07.1 COVID-19 (principal); J02.9 Acute pharyngitis, unspecified; R51.9 Headache, unspecified
CPT/HCPCS: 0241U; 87651; 99283

== ENCOUNTER 2023-04-23 14:46 | Outpatient (AMB) | payer MEDICAID, SELFPAY ==
[2023-04-23 14:54] VITALS: BP 114/72; PULSE 105; BMI 38.7
--- NOTE | 2023-04-23 14:54 | MHC.OFFVIS ---
Intake Vital Signs 04/23/23 14:54 Height 5 ft 2 in Weight 211 lb 10.3 oz BMI 38.7 BP 114/72 Blood Pressure Location Lt brachial Position Sitting Pulse 105 H Pulse Source Monitor Intake Visit Reasons: Pre-op Rt TKA 05/31 Dr. Mcdermott Software Engineering Associate Manager Required: No Allergies lisinopril Allergy (Severe, Verified 04/23/23 14:56) Angioedema hydroxyzine [HYDROXYZINE] Adverse Reaction (Intermediate, Verified 04/23/23 14:56) reports redness and swelling Medication List - Last Reconciled 04/23/23 by Yelena López, BASKETBALL REFEREE-C albuterol sulfate 90 mcg/actuation (ProAir HFA) 2 puffs inhalation Q4-6H PRN buprenorphine-naloxone 8-2 mg (Suboxone) 10 mg sublingual BID cetirizine 10 mg PO DAILY clonidine HCl 0.1 mg PO BID hydrochlorothiazide 12.5 mg PO DAILY metoprolol succinate ER (Toprol XL) 25 mg PO DAILY naloxone 4 mg/actuation (Narcan) 0 sprays intranasal prednisone 40 mg (2 x 20 mg) PO DAILY 5 days HPI Pre-op Rt TKA 05/31 Dr. Mcdermott HPI Details Gaby is a 57-year-old female with past medical history of hypertension, prior smoking, prior heroin use, now on Suboxone, who has been seen in the ER for evaluation of chest discomfort with normal troponins, newer left bundle branch block who presents for follow-up. Today she reports that she lives on the 3rd floor and she will get chest discomfort if she climbs the stairs carrying her walker or a bag of groceries. She does also have shortness of breath with that activity. She does walk frequently but has to take rest periods. She walked to this office appointment from [address]. She denies having chest discomfort but admits to the shortness of breath. No heart palpitations, lightheadedness, presyncope, syncope, falls. No PND, orthopnea or edema. Taking meds as directed. Tells me that her left knee is bad and that she is hoping to have knee replacement surgery in the near future. [facility] Medical History (Updated 04/23/23 @ 17:34 by Yelena López, BASKETBALL REFEREE-C) Left against medical advice Angioedema History of fatty infiltration of liver History of alcohol dependence History of heroin use Chronic knee pain Chronic back pain History of seizure History of panic disorder History of opioid abuse Depression HTN (hypertension) History of left bundle branch block (LBBB) Migraine Anxiety Asthma Surgical History Hx of exploratory laparotomy Hx of colonoscopy Family History Mother Heart disease Arthritis HTN (hypertension) Social History Household Members: None Housing: House Do you presently have visiting nurse or other home services: No Alcohol intake: current Alcohol intake frequency: does not drink Patient Tobacco Use Status: Former Tobacco user Quit Date: 2021 Smoked: 10 +/- Substance Use Type: Heroin, Opiates and Painkillers service: No Current occupational status: unemployed Review of Systems Const All systems reviewed & are unremarkable except as noted in HPI and below ENT Denies dizziness Card Denies chest pain, Denies chest pain at rest, Reports chest pain with activity, Denies rapid heart rate, Denies pedal edema, Denies edema, Denies leg edema, Denies lightheadedness, Denies palpitations, Denies dyspnea, Reports dyspnea on exertion and Denies orthopnea Resp Denies cough, Denies dyspnea and Reports dyspnea on exertion GI Denies hematochezia and Denies change in stool character Musc Details: Uses walker Denies abnormal gait, Denies limited range of motion, Denies muscle cramps, Denies muscle weakness, Denies numbness, Denies radiating pain into limb, Denies stiffness and Denies tingling Neuro Denies abnormal gait, Denies dizziness, Denies numbness and Denies tingling Endo Denies palpitations Physical Exam Vital Signs: Last Vital Signs Pulse 105 H 04/23/23 14:54 BP 114/72 04/23/23 14:54 BMI result Body Mass Index 38.7 Const General: cooperative, comfortable and no acute distress Orientation/consciousness: patient oriented x3 Neck Neck: Yes normal visual inspection and Yes no JVD Chest Chest palpation & inspection: normal inspection of the chest Resp Effort & Inspection: normal respiratory effort Auscultation: clear to auscultation bilaterally, no crackles, no rales, no rhonchi and no wheezes Cardio Jugular venous distension: no JVD Rate: regular rate Rhythm: regular rhythm Heart sounds: S1 normal heart sound present, S2 normal heart sound present, no murmurs and no rubs Neuro General: patient oriented x3 Extrem General: Yes normal to inspection, No no pedal edema and No calf tenderness Psych Appearance: grossly normal Mental Status: mental status grossly normal Speech and movement: Normal speech and movement present Office Procedures EKG Details: Today, read by me, sinus tachycardia, left bundle branch block, rate 105, QTC 499 milliseconds, falsely prolonged due to wide QRS [id number], Complete Assessment & Plan Assessment & Plan (1) Chest pain: Code(s): R07.9 - Chest pain, unspecified Plan: Reports of chest discomfort which occur with stair climbing and carrying objects at the same time. She has shortness of breath with this activity as well as when walking distances. She needs to rest frequently and take her time for any prolonged walking. She uses a walker. She was seen in the emergency room on 11/11/2022 and 01/18/2023 for chest discomfort and ruled out for ACS. Her EKGs show left bundle branch block, which makes them nondiagnostic for ischemia. She tells me she has knee arthritis and is hoping to have a total knee replacement surgery in the near future. With her chest discomfort, will need to evaluate for ischemia. Will order an echocardiogram to assess for any structural heart disease. Will order a pharmacological nuclear stress test to evaluate for any ischemia. Patient will be unable to exercise on the treadmill. Plan to call her with with results once available. Cardiology follow-up 4-6 weeks. (2) LBBB (left bundle branch block): Code(s): I44.7 - Left bundle-branch block, unspecified Plan: Present on EKGs (3) HTN (hypertension): Code(s): I10 - Essential (primary) hypertension Plan: Well controlled at present. No med changes made. Continue hydrochlorothiazide and metoprolol. Plan Time spent on chart review, documentation, interview and assessment Orders: Orders CA lexiscan stress w stacia 04/23/23 I44.7 - Left bundle-branch block, unspecified, R07.9 - Chest pain, unspecified NM cardiolite stress test 04/23/23 I44.7 - Left bundle-branch block, unspecified, R07.9 - Chest pain, unspecified Coding Level of Care Code Est Pt Level 4 (82877) Diagnoses Chest pain R07.9 LBBB (left bundle branch block) I44.7 HTN (hypertension) I10 CPT Codes EKG - CPT: 73916-[id number], Complete ([id number]) Time Spent (min) 28
== END 2023-04-23 15:18 | disposition home or self-care (01) ==
PROVIDERS: Visit Provider Nurse Practitioner Family
DX: R07.9 Chest pain, unspecified (principal); I44.7 Left bundle-branch block, unspecified; I10 Essential (primary) hypertension
CPT/HCPCS: 93010; 99214

== ENCOUNTER → 2023-04-23 14:46 | Outpatient (BNVA) | payer MEDICAID, SELFPAY | PROVIDERS: Visit Provider Nurse Practitioner Family | DX: R07.9 Chest pain, unspecified (principal); I44.7 Left bundle-branch block, unspecified; I10 Essential (primary) hypertension | CPT/HCPCS: 93005; 99212 ==

== ENCOUNTER → 2023-04-29 09:45 | Outpatient (REF) | payer MEDICAID, SELFPAY ==
--- NOTE | 2023-04-29 09:54 | CA_ITS ---
Transthoracic Echocardiogram Patient (Last, First, Middle): Gaby Arteaga, Gender: Female Date of : 1965 Age: 57 Procedure Date: 04/29/2023 Procedure Type: Transthoracic Echocardiogram Location: OP Height: 160.02 cm Weight: 92.53 kg BSA: 1.95 m2 Heart Rate: bpm BP: 124 / 70 mmHg Well Cleaner: RADHA Referring MD: Marcelo Wahl MD Symptoms: I44.7 - Left bundle-branch block, unspecified Study Quality: Adequate ECG Rhythm: Sinus Conclusions: - The left ventricular systolic function is normal. The calculated ejection fraction is 64% by biplane method. - No obvious valvular pathology seen on this study. Findings Left Ventricle Normal left ventricular cavity size. There is mildly increased left ventricular wall thickness. The left ventricular systolic function is normal. The calculated ejection fraction is 64% by biplane method. There is no evidence of regional wall motion abnormalities. Diastolic function is normal for age. LV peak GLS -19.5%. Right Ventricle Normal right ventricular cavity size and systolic function. Atria Both atria are normal in size. Aortic Valve There is a normal trileaflet aortic valve. There is no aortic valve stenosis. There is no aortic valve regurgitation. Mitral Valve The mitral valve appears normal. There is no mitral valve regurgitation. There is no mitral valve stenosis. Pulmonic Valve The pulmonic valve is likely normal. Tricuspid Valve There is trace tricuspid valve regurgitation. There is no evidence of pulmonary hypertension. Great Vessels The asc aorta is normal in size. Venous The inferior vena cava is normal in size and collapses greater than 50% with inspiration. Pericardium/Pleural There is no evidence of pericardial effusion. Prior Study Comparison No significant change compared to prior study dated: 01/24/2019. Recommendations, Care & Conclusions No obvious valvular pathology seen on this study. Measurements 2D Linear Measurements IVSd: 1.19 0.6-0.9/0.6-1.0 cm LVIDd: 4.15 3.9-5.3/4.2-5.9 cm LVIDd Index: 2.13 2.4-3.2/2.2-3.1 cm/m2 LVIDs: 2.88 2.0-3.6 cm LVPWd: 1.02 0.7-1.1 cm LA Diam: 3.70 2.7-3.8/3.0-4.0 cm LAIDs Index: 1.90 1.5-2.3 cm/m2 LV Mass: 193.22 67-162/88-224 g LV Mass Index: 99.09 43-95/49-115 g/m2 LVOT Diam: 2.00 3.0+(-)1.3 cm 2D Systolic Function EF 4C: 65.50 >55% EF 2C: 63.00 >55% EF BiP: 64.10 >55% Mitral Valve MV Pk E: 0.94 MV PK A: 0.93 MV Decel Time: 249.00 E/A: 1.00 E'Lateral: 7.62 E'Medial: 6.31 E/E' Med: 14.90 E/E' Lat: 12.40 PHT: 73.00 MVA PHT: 3.01 Decel Dickinson: 3.79 Aortic Valve AoV Pk Cooper: 1.84 AoV Mn Cooper: 1.35 AoV VTI: 0.44 AoV Pk Grad: 14.00 Aov Mn Grad: 8.00 FRANCISCO Cont.VTI: 2.48 LVOT LVOT Pk Cooper: 1.63 LVOT Mn Cooper: 0.92 LVOT VTI: 0.35 LVOT Pk Grad: 11.00 LVOT Mn Grad: 4.00 LVOT Diam: 2.00 LVOT Area: 3.14 Diastolic Function MV Pk E: 0.94 MV Pk A: 0.93 E/A: 1.00 E'Medial: 6.31 E/E' Med: 14.90 E' Laterial: 7.62 E/E' Lat: 12.40 Right Ventricle TAPSE (mm): 23.00 TVS' Cooper: 15.00 Tricuspid Valve TR Pk Cooper: 2.14 TR Pk Grad: 18.00 RA Press: 3.00 RVSP: 21.00 Great Vessels Aorta Sinus of Valsalva: 3.13 2.0-3.[address] [place]: 2.65 1.7-3.4 cm Ao Asc: 3.30 2.1-3.4 cm Updated in Other Vendor System with Status of Final Lemuel Snell MD electronically signed on 05/01/2023 12:52:02 PM with status of Final
== END ==
LOC: HO.CARD 09:45
PROVIDERS: Visit Provider Nurse Practitioner Family
DX: I44.7 Left bundle-branch block, unspecified (principal); R07.9 Chest pain, unspecified
CPT/HCPCS: 93306; 93356

== ENCOUNTER → 2023-04-29 09:54 | Outpatient (BNV) | payer MEDICAID, SELFPAY | PROVIDERS: Visit Provider Internal Medicine | DX: R94.31 Abnormal electrocardiogram [ECG] [EKG] (principal); R00.0 Tachycardia, unspecified; I44.7 Left bundle-branch block, unspecified | CPT/HCPCS: 93306 ==

== ENCOUNTER → 2023-05-08 08:26 | Outpatient (REF) | payer MEDICAID, SELFPAY ==
--- NOTE | ~2023-05-08 | NM_ITS ---
Lexiscan Myocardial perfusion study Indication: Chest pain, left bundle branch block Technique: The patient was brought in for a Lexiscan perfusion study on 05/08/2023 and was injected 0.4 mg of Lexiscan intravenously. Within a minute of this injection 35 mCi of sestamibi was given intravenously. Images were obtained using the SPECT gamma camera interlaced with the gating device. Images were obtained in supine position. Resting perfusion study was performed on 05/14/2023. Patient was administered 35 mCi of sestamibi intravenously at rest. Images were then obtained in supine position. Images were processed with the software and compared side to side in short axis, horizontal long axis and vertical long axis views. Total DLP 120mGy-cm. Findings: Raw acquisition reviewed. The stress perfusion study showed diminished tracer uptake along the apical anterior wall. Also seen during CT attenuation correction. The gated study shows normal LV systolic function with calculated LVEF of 60%. LV cavity is normal in size. The gated study shows normal wall thickening and contraction of segments. Resting study shows no significant perfusion abnormality. Gating at rest reveals normal wall motion with visually normal LVEF. The findings are consistent with mild reversible panchito-apical perfusion defect, but with normal contractility. NM/NM cardiolite stress test Impression: 1. Myocardial perfusion imaging study shows reversible anteroapical perfusion defect. Could indicate mild ischemia. Artifact not excluded. 2. Gated LVEF is 60% during stress and visually normal during rest. 3. Transient ischemic dilatation not present. EKG component of the test reported separately.
--- NOTE | 2023-05-08 08:28 | CA_ITS ---
Acquisition Time: 2023-05-08 10:13:01 Total Exercise Time: 00:02:00 Test Indications: CP, LBBB, PREOP Medications: SEE H Protocol: LEXISCAN Max HR: 092 BPM 56% of Pred: 164 BPM Max BP: 126/082 mmHG Max Work Load: 1.0 METS Pharmacological stress test with Lexiscan injection, while slowly kicking her legs, without anginal symptoms, with rate related incomplete LBBB, with normotensive response to injection, with nondiagnostic EKG for ischemia.In recovery she reported headache and was treated with Aminophylline 75mg IVP to reverse Lexiscan with resolution of symptom. Nuclear images pending. Test reviewed with Dr Forrest. Referred By: Yelena López Overread By: YELENA LÓPEZ
== END ==
LOC: HO.CARD 08:26
PROVIDERS: Visit Provider Nurse Practitioner Family
DX: R07.9 Chest pain, unspecified (principal); I44.7 Left bundle-branch block, unspecified
CPT/HCPCS: 78452; 93017; A9500; J0280; J2785

== ENCOUNTER → 2023-05-08 08:28 | Outpatient (BNV) | payer MEDICAID, SELFPAY | PROVIDERS: Visit Provider Nurse Practitioner Family | DX: R07.9 Chest pain, unspecified (principal); I44.7 Left bundle-branch block, unspecified | CPT/HCPCS: 78452; 93016; 93018 ==

== ENCOUNTER 2023-05-19 10:40 | Outpatient (AMB) | payer MEDICAID, SELFPAY ==
[2023-05-19 10:53] VITALS: BP 114/77; PULSE 97; O2SAT 93; BMI 38.9
--- NOTE | 2023-05-19 10:53 | MHC.OFFVIS ---
Intake Vital Signs 05/19/23 10:53 Height 5 ft 2 in Weight 212 lb 11.937 oz BMI 38.9 BP 114/77 Blood Pressure Location Lt brachial Position Sitting Pulse 97 Pulse Source Doppler Pulse Oximetry (%) 93 Oxygen Delivery Method Room Air Intake Visit Reasons: Pre op clearance Allergies lisinopril Allergy (Severe, Verified 05/19/23 10:56) Angioedema hydroxyzine [HYDROXYZINE] Adverse Reaction (Intermediate, Verified 05/19/23 10:56) reports redness and swelling HPI Pre op clearance HPI Details 57-year-old lady, former smoker, with underlying history of what appears to be asthma, last in in 2021, then lost to follow-up, now returns for preoperative evaluation for knee replacement under general anesthesia. Patient states that her prior asthma symptoms are well controlled on as needed albuterol MDI. She denies any recent exacerbations. [facility] Medical History (Updated 05/19/23 @ 11:34 by Sheldon Plasencia MD) Left against medical advice Angioedema History of fatty infiltration of liver History of alcohol dependence History of heroin use Chronic knee pain Chronic back pain History of seizure History of panic disorder History of opioid abuse Depression HTN (hypertension) History of left bundle branch block (LBBB) Migraine Anxiety Asthma Surgical History Hx of exploratory laparotomy Hx of colonoscopy Family History Mother Heart disease Arthritis HTN (hypertension) Social History Household Members: None Housing: House Do you presently have visiting nurse or other home services: No Alcohol intake: current Alcohol intake frequency: does not drink Patient Tobacco Use Status: Former Tobacco user Quit Date: 2021 Years Smoked: 10 +/- Substance Use Type: Heroin, Opiates and Painkillers service: No Current occupational status: unemployed Review of Systems Const Denies daytime sleepiness, Denies excessive sweating, Denies fatigue, Denies fever(s), Denies lethargy, Denies malaise, Denies night sweats, Denies snoring and Denies weight loss Eyes Denies blurry vision and Denies itchy eyes ENT Denies nasal congestion, Denies post nasal drip, Denies sinus pain, Denies sinus pressure and Denies other ( Thrush) Card Denies chest pain, Denies pedal edema, Denies dyspnea, Denies orthopnea and Denies paroxysmal nocturnal dyspnea Resp Denies cough, Denies hemoptysis, Denies excessive phlegm production, Denies dyspnea, Denies snoring and Denies wheezing GI Denies abdominal pain and Denies heartburn Skin/Breast Denies rash Neuro Denies memory loss and Denies seizure-like activity Psych Denies abnormal sleep pattern, Denies anxiety and Denies memory loss Endo Denies excessive sweating, Denies fatigue and Denies heat intolerance Js/Lymph Denies easy bruising Aller/Immun Denies itchy eyes, Denies seasonal rhinorrhea and Denies wheezing Physical Exam Vital Signs: Last Vital Signs Pulse 97 05/19/23 10:53 BP 114/77 05/19/23 10:53 Pulse Ox 93 05/19/23 10:53 Oxygen Delivery Method Room Air 05/19/23 10:53 BMI result Body Mass Index 38.9 Const General: no acute distress and alert Nutritional Appearance: obese Orientation/consciousness: Other orientation findings ( oriented) HEENT Head: Yes atraumatic Eyes General: appearance normal, both eyes and all related structures Sclerae: sclerae normal EOM: EOMs intact bilaterally Neck Neck: Yes supple Lymphatic: no lymphadenopathy noted Resp Effort & Inspection: normal respiratory effort and no use of accessory muscles Auscultation: clear to auscultation bilaterally Cardio Rate: regular rate Rhythm: regular rhythm Heart sounds: no gallops, no murmurs and no rubs Skin General skin exam: other ( warm) Extrem General: No clubbing, No cyanosis and No edema Assessment & Plan Assessment & Plan (1) Asthma: Code(s): J45.909 - Unspecified asthma, uncomplicated Plan: Well controlled on as needed albuterol MDI. Continue current regimen. (2) Encounter for preoperative pulmonary examination: Code(s): Z01.811 - Encounter for preprocedural respiratory examination Plan: At this time patient is at low risk for pulmonary perioperative complications for the proposed total knee replacement under general anesthesia. Coding Level of Care Code Est Pt Level 4 (53116) Diagnoses Asthma J45.909 Encounter for preoperative pulmonary examination Z01.811
== END 2023-05-19 11:06 | disposition home or self-care (01) ==
PROVIDERS: PCP Nurse Practitioner Primary Care; Visit Provider Internal Medicine Pulmonary Disease
DX: J45.909 Unspecified asthma, uncomplicated (principal); Z01.811 Encounter for preprocedural respiratory examination
CPT/HCPCS: 99214

== ENCOUNTER → 2023-05-19 10:40 | Outpatient (BNVA) | payer MEDICAID, SELFPAY | PROVIDERS: PCP Nurse Practitioner Primary Care; Visit Provider Internal Medicine Pulmonary Disease | DX: Z01.811 Encounter for preprocedural respiratory examination (principal); J45.909 Unspecified asthma, uncomplicated | CPT/HCPCS: 99212 ==

== ENCOUNTER 2023-06-19 11:31 | Emergency (ER) | payer MEDICAID, SELFPAY ==
--- NOTE | ~2023-06-19 | XR_ITS ---
EXAMINATION: XR CHEST CLINICAL INFORMATION: Chest pain. Shortness of breath. COMPARISON: Previous chest x-ray most recent October [address] August 2021 TECHNIQUE: Frontal view of the chest was obtained. FINDINGS: The cardiac and mediastinal contours are stable. There is abnormal soft tissue at the right cardiophrenic angle similar to previous exams. 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 The lungs are clear. No pleural effusion or pneumothorax. There are degenerative changes of the spine. XR/XR chest 1V IMPRESSION: No evidence for acute disease in the chest.
--- NOTE | 2023-06-19 11:33 | ECG_ITS ---
Test Reason : CHEST PAIN Blood Pressure : / mmHG Vent. Rate : 074 BPM Atrial Rate : 074 BPM P-R Int : 140 ms QRS Dur : 094 ms QT Int : 384 ms P-R-T Axes : 008 -11 035 degrees QTc Int : 426 ms Normal sinus rhythm Minimal voltage criteria for LVH, may be normal variant ( [place] product ) Borderline ECG When compared with ECG of 18-JAN-2023 19:00, Premature ventricular complexes are no longer Present T wave inversion no longer evident in Inferior leads Nonspecific T wave abnormality no longer evident in Anterolateral leads Referred By: Cierra Montoya Electronically Signed By:Marcelo Wahl
[2023-06-19 11:44] VITALS: BP 105/62; BP 111/89; PULSE 73; PULSE 82; RESP 18; TEMP 36.4; O2SAT 96; O2SAT 98; BMI 39.0
--- NOTE | 2023-06-19 12:01 | ED.CHESTPAIN ---
HPI - Chest Pain General Chief Complaint: Chest Pain Stated Complaint: Abnormal ECG, per ems Time Seen by Provider: 06/19/23 11:33 Source: patient Mode of arrival: EMS History of Present Illness HPI narrative: 57-year-old female who is scheduled for cardiac catheterization according to her charge attendant whom she sees through [facility], she presents via EMS with complaints of 1 week sharp chest pain that worsens with deep inspiration, she does report associated dizziness but otherwise denies fever, chills, new cough, she has a prior smoker and denies any body aches. Related Data Home Medications Medication Instructions Recorded Confirmed cetirizine 10 mg tablet 10 mg PO DAILY 08/28/21 04/23/23 clonidine HCl 0.1 mg tablet 0.1 mg PO BID 08/28/21 04/23/23 hydrochlorothiazide 12.5 mg tablet 12.5 mg PO DAILY 08/28/21 04/23/23 naloxone 4 mg/actuation nasal 0 spray intranasal 08/28/21 04/23/23 spray (Narcan) buprenorphine 8 mg-naloxone 2 mg 10 mg sublingual BID 10/15/22 04/23/23 sublingual film (Suboxone) Previous Rx's Medication Instructions Recorded albuterol sulfate 90 mcg/actuation 2 puff inhalation Q4-6H PRN 12/19/20 aerosol inhaler (ProAir HFA) Wheezing #8.5 grams metoprolol succinate 25 mg 25 mg PO DAILY #30 tabs 05/13/21 tablet,extended release 24 hr (Toprol XL) prednisone 20 mg tablet 40 mg (2 x 20 mg) PO DAILY 5 days 10/25/22 #10 tabs aspirin 81 mg tablet,delayed 81 mg PO DAILY #30 tabs 05/19/23 release (Adult Low Dose Aspirin) isosorbide mononitrate 30 mg 30 mg PO DAILY #30 tabs 05/19/23 tablet,extended release 24 hr prednisone 50 mg tablet 50 mg PO DAILY 4 days #4 tabs 06/19/23 Allergies Allergy/AdvReac Type Severity Reaction Status Date / Time lisinopril Allergy Severe Angioedema Verified 06/19/23 11:44 hydroxyzine [HYDROXYZINE] AdvReac Intermediate reports Verified 06/19/23 11:44 redness and swelling Review of Systems Review of Systems: Pertinent positives and negatives as stated in HPI PMFSH Past Medical History Source: nursing notes reviewed Medical History Left against medical advice Angioedema History of fatty infiltration of liver History of alcohol dependence History of heroin use Chronic knee pain Chronic back pain History of seizure History of panic disorder History of opioid abuse Depression HTN (hypertension) History of left bundle branch block (LBBB) Migraine Anxiety Asthma Surgical History Hx of exploratory laparotomy Hx of colonoscopy Family History Family History Mother Heart disease Arthritis HTN (hypertension) Social History Social History Household Members: None Housing: House Do you presently have visiting nurse or other home services: No Alcohol intake: current Alcohol intake frequency: does not drink Patient Tobacco Use Status: Former Tobacco user Quit Date: 2021 Smoked: 10 +/- Smoked in Last 30 Days: No Use of substances other than those prescribed or required for medical reasons: No Substance Use Type: Heroin, Opiates and Painkillers Advance Directives: No Advance Directives Information Provided: Yes Patient : No service: No Current occupational status: unemployed Physical Exam Vital Signs: Vital Signs: Last Vital Signs Temp 97.6 F 06/19/23 11:44 Pulse 73 06/19/23 11:44 Resp 18 06/19/23 11:44 BP 105/62 06/19/23 11:44 Pulse Ox 96 06/19/23 11:44 O2 Del Method Room Air 06/19/23 11:44 BMI result Body Mass Index 39.0 VITAL SIGNS: Reviewed. GENERAL: Well developed, well nourished, in no acute distress. HEAD: Normocephalic/atraumatic EYES: PERRLA, EOMI EARS: Ext canals without abnormality NOSE: Nares patent bilateral OROPHARYNX: no oral lesions noted, posterior pharynx clear NECK: Supple, no adenopathy LUNGS: Good inspiratory effort, decreased breath sounds noted in left upper lobe, otherwise no tachypnea. SpO2<96> CARDIOVASCULAR: Regular rate and rhythm without noted murmurs, no JVD or lower extremity edema. ABDOMEN: Soft, non-tender, non-distended with bowel sounds. MUSCULOSKELETAL: No tenderness, deformities, or effusions noted on gross inspection. EXTREMITIES: No cyanosis, clubbing or edema. SKIN: Inspection of the skin reveals no rashes NEUROLOGIC: Alert and oriented x 4. Strength and sensation to light touch were grossly intact x 4. Medical Decision Making Medical Decision Making [facility] Narrative: 57-year-old female with history and clinical presentation, DDX: Viral illness, pneumonia, lower clinical suspicion for ACS. I reviewed all investigations and hematologic indices negative for leukocytosis/left shift/anemia/thrombocytopenia. Coagulation studies are within normal limits. Chemistry indices demonstrate a chronically stable alkaline phosphatase and trace elevation of transaminases but otherwise no evidence of PAUL or electrolyte derangements, high sensitivity troponin is undetectable without acute changes on EKG. Viral testing is negative for influenza/RSV/COVID-19. Chest x-ray is negative for infiltrate or venous congestion otherwise my interpretation is in agreement with radiology's impression. Patient received combination analgesics as well as being treated for suspected bronchitis Differential Diagnosis Differential Diagnoses: The differential diagnosis associated with the presentation includes Please see the discussion above Admission/Observation Consideration of admission/observation: Escalation of care including admission/observation considered Please see the discussion above Lab Data [facility] Lab Attestation statement: I reviewed the patient's lab results. Please see the discussion above 06/19/23 12:14 06/19/23 12:14 Labs: Lab Results 06/19/23 06/19/23 Range/Units 12:14 12:57 WBC 5.9 (4.8-10.8) X10*3/uL RBC 4.67 (4.20-5.50) X10*6/uL Hgb 12.8 (12.0-16.0) g/dl Hct 40.0 (37.0-47.0) % MCV 85.7 (80.0-98.0) fL MCH 27.4 (27.0-33.0) pg MCHC 32.0 (31.0-35.0) g/dl RDW 13.7 (11.0-16.0) % Plt Count 342 (160-400) X10*3/uL MPV 9.1 L (9.4-12.3) fL Immature Gran % (Auto) 0.3 (0.0-0.4) % Neut % (Auto) 54.3 (45-73) % Lymph % (Auto) 27.8 (20-40) % [place] % (Auto) 10.2 (2-11) % Eos % (Auto) 6.5 H (0-4) % Baso % (Auto) 0.9 (0-2) % Lymph # (Auto) 1.6 (1.2-4.9) X10*3/uL [place] # (Auto) 0.6 (0.1-1.2) X10*3/uL Eos # (Auto) 0.4 (0.0-0.4) X10*3/uL Baso # (Auto) 0.1 (0.0-0.2) X10*3/uL Abs Immat Gran (auto) 0.02 (0.00-0.03) X10*3/uL Absolute Neuts (auto) 3.2 (2.0-8.3) x10*3/uL Absolute Nucleated RBC 0.000 (0.0-0.012) X10*3/uL Nucleated RBC % (auto) 0.0 (0.0-0.2) /100WBC PT 13.2 (11.1-13.3) SEC INR 1.1 (0.9-1.1) Sodium 137 (135-145) mmol/L Potassium 3.9 (3.3-5.1) mmol/L Chloride 100 (96-108) mmol/L Carbon Dioxide 26 (22-29) mmol/L Anion Gap 15 (12-20) BUN 15 (9-16) mg/dL Creatinine 0.73 (0.5-1.4) mg/dL Estim Creat Clear Calc 96.9 Estimated GFR > 60 Random Glucose 109 (60-115) mg/dL Calcium 9.8 D (8.4-10.2) mg/dL Total Bilirubin 0.6 (0.0-1.0) mg/dL AST 37 H (5-31) U/L ALT 42 H (0-31) U/L Alkaline Phosphatase 157 H (39-117) U/L Troponin I High Sens < 2.7 (<3.5-17.0) ng/L Total Protein 8.2 H (6.5-8.0) g/dL Albumin 4.1 (3.5-5.0) g/dL Influenza Type A (PCR) NEGATIVE (Negative) Influenza Type B (PCR) NEGATIVE (Negative) RSV RNA Qual (PCR) NEGATIVE (Negative) SARS-CoV-2 RNA (RT-PCR) NEGATIVE (Negative) Independent Interpretation I performed an independent interpretation of an: EKG Interpretation: Sinus rhythm, HR-74, no STEMI, OH/QRS/QTC is within normal limits. Radiology Impression Discussion of test interpretation with radiology: I have reviewed the radiologist's reading. Radiologist Impression: Please see the discussion above External Record Review External record reviewed: Outpatient record, Prior outpatient labs and Prior outpatient radiology Critical Care Time Critical Care Time Critical Care Time: Yes Total Critical Care Time: 45 Attestation: I personally attest to this time spent taking care of the patient. Discharge Plan Discharge Clinical Impression: Atypical chest pain, COPD with acute bronchitis Patient Disposition: Home, Self-Care Instructions: Acute Bronchitis (ED), COPD (Chronic Obstructive Pulmonary Disease) (ED) Additional Instructions: 1. Resume all home medications as prescribed. 2. Please complete the course steroids for your bronchitis as prescribed. Recommend that you utilize either Mylanta or Tums during the use of this medication to help reduce the effects of acid production. 3. Follow-up with your primary care doctor in the next 3-4 days. Return to the ER for any worsening symptoms. Prescriptions: New prednisone 50 mg tablet 50 mg PO DAILY 4 Days Qty: 4 0RF No Action isosorbide mononitrate 30 mg tablet extended release 24 hr 30 mg PO DAILY Qty: 30 5RF aspirin [Adult Low Dose Aspirin] 81 mg tablet,delayed release (DR/EC) 81 mg PO DAILY Qty: 30 5RF metoprolol succinate [Toprol XL] 25 mg tablet extended release 24 hr 25 mg PO DAILY Qty: 30 1RF albuterol sulfate [ProAir HFA] 90 mcg/actuation HFA aerosol inhaler 2 puff inhalation Q4-6H PRN (Reason: Wheezing) Qty: 8.5 0RF prednisone 20 mg tablet 40 mg PO DAILY 5 Days Qty: 10 0RF hydrochlorothiazide 12.5 mg tablet 12.5 mg PO DAILY cetirizine 10 mg tablet 10 mg PO DAILY clonidine HCl 0.1 mg tablet 0.1 mg PO BID naloxone [Narcan] 4 mg/actuation spray,non-aerosol 0 spray intranasal buprenorphine-naloxone [Suboxone] 8-2 mg film 10 mg sublingual BID Referrals: Sosa,Juani, DOCUMENT MANAGEMENT ANALYST [Primary Care Provider] -
[2023-06-19 12:19] LABS: MANUAL DIFF FLAG NO
--- NOTE | 2023-06-19 12:20 | PC.NURSE ---
patient a&ox3, iv inserted, labs drawn, ekg performed, pt placed on cardiac cath tech, c/o headache, call grossman within reach, will continue to monitor
[2023-06-19 12:22] LABS: Basophils Absolute Auto 0.1 X10*3/uL (0.0-0.2); Basophils Percent Auto 0.9 % (0-2); Eosinophils Absolute Auto 0.4 X10*3/uL (0.0-0.4); Eosinophils Percent Auto 6.5 % (0-4); Hemoglobin 12.8 g/dl (12.0-16.0); Imm Gran Abs Auto 0.02 X10*3/uL (0.00-0.03); Imm Gran Pct Auto 0.3 % (0.0-0.4); Lymphocytes Absolute Auto 1.6 X10*3/uL (1.2-4.9); Lymphocytes Percent Auto 27.8 % (20-40); Mean Corpuscular Hemoglobin 27.4 pg (27.0-33.0); Mean Corpuscular Volume 85.7 fL (80.0-98.0); Mean Platelet Volume 9.1 fL (9.4-12.3); Monocytes Absolute Auto 0.6 X10*3/uL (0.1-1.2); Monocytes Percent Auto 10.2 % (2-11); Neutrophils Absolute Auto 3.2 x10*3/uL (2.0-8.3); Neutrophils Percent Auto 54.3 % (45-73); Platelet Count 342 X10*3/uL (160-400); Red Blood Count 4.67 X10*6/uL (4.20-5.50); Red Cell Distribution Width 13.7 % (11.0-16.0); White Blood Count 5.9 X10*3/uL (4.8-10.8)
[2023-06-19 12:35] LABS: Alanine Aminotransferase 42 U/L (0-31); Albumin Level 4.1 g/dL (3.5-5.0); Alkaline Phosphatase 157 U/L (39-117); Anion Gap 15 (12-20); Aspartate Amino Transferase 37 U/L (5-31); Bilirubin Total 0.6 mg/dL (0.0-1.0); Blood Urea Nitrogen 15 mg/dL (9-16); Calcium 9.8 mg/dL (8.4-10.2); Carbon Dioxide 26 mmol/L (22-29); Chloride 100 mmol/L (96-108); Creatinine Clr Calc Pharmacy 96.9; Estimated Glomerular Filt Rate > 60; Glucose Random 109 mg/dL (60-115); Potassium 3.9 mmol/L (3.3-5.1); Sodium 137 mmol/L (135-145); Total Protein 8.2 g/dL (6.5-8.0)
[2023-06-19 12:43] LABS: Troponin-I High Sensitivity < 2.7 ng/L (<3.5-17.0)
[2023-06-19 13:00] LABS: Influenza A PCR NEGATIVE (Negative); Influenza B PCR NEGATIVE (Negative); Resp Syncy Virus RNA Qual PCR NEGATIVE (Negative); SARS COV2 PCR INHOUSE NEGATIVE (Negative)
[2023-06-19 13:10] LABS: INTERNATIONAL NORM RATIO 1.1 (0.9-1.1); Prothrombin Time 13.2 SEC (11.1-13.3)
[2023-06-19] MEDS: Ibuprofen 400 MG TABLET PO (13:54)
[2023-06-19] MEDS: Acetaminophen 325 MG TABLET 975 MG PO (13:54)
[2023-06-19] MEDS: predniSONE 10 MG TABLET 50 MG PO (13:54)
[2023-06-19 14:24] VITALS: BP 108/68; PULSE 74; RESP 18; TEMP 36.8; O2SAT 96
--- NOTE | 2023-06-19 14:24 | PC.NURSE ---
pt medicated per order, vss, pt to discharge home
== END 2023-06-19 14:25 | disposition home or self-care (01) ==
PROVIDERS: Emergency Provider Student in an Organized Health Care Education/Training Program; PCP Nurse Practitioner Primary Care
DX: J44.0 Chronic obstructive pulmonary disease with (acute) lower respiratory infection (principal); J20.9 Acute bronchitis, unspecified; R07.89 Other chest pain; R42 Dizziness and giddiness; I10 Essential (primary) hypertension; Z03.818 Encounter for observation for suspected exposure to other biological agents ruled out
CPT/HCPCS: 0241U; 71045; 80053; 84484; 85025; 85610; 93005; 99283; 99284

== ENCOUNTER → 2023-06-19 11:33 | Outpatient (BNV) | payer MEDICAID, SELFPAY | PROVIDERS: Emergency Provider Student in an Organized Health Care Education/Training Program; PCP Nurse Practitioner Primary Care; Visit Provider Internal Medicine Cardiovascular Disease | DX: R07.9 Chest pain, unspecified (principal) | CPT/HCPCS: 93010 ==

== ENCOUNTER 2023-06-29 16:38 | Outpatient (REF) | payer MEDICAID, SELFPAY ==
[2023-07-08 11:28] LABS: Codeine, Ur NEGATIVE; Hydrocodone, Ur NEGATIVE
[2023-07-08 11:29] LABS: Hydromorphone, Ur NEGATIVE; Morphine, Ur NEGATIVE; Norhydrocodone, Ur NEGATIVE; Noroxycodone, Ur NEGATIVE; Oxycodone, Ur NEGATIVE; Oxymorphone, Ur NEGATIVE
== END 2023-06-29 16:39 | disposition home or self-care (01) ==
LOC: HO.HHCLNP 16:38
PROVIDERS: Visit Provider Family Medicine
DX: F11.20 Opioid dependence, uncomplicated (principal)
CPT/HCPCS: 80354; 80365; G0480

== ENCOUNTER 2023-07-09 13:44 | Outpatient (AMB) | payer MEDICAID, SELFPAY ==
--- NOTE | 2023-07-09 13:48 | MHC.OFFVIS ---
Vital Signs 07/09/23 13:52 Height 5 ft 3 in Weight 229 lb 4.492 oz BMI 40.6 BP 130/72 Blood Pressure Location Lt brachial Position Sitting Pulse 98 Pulse Source Pulse Oximeter Pulse Oximetry (%) 98 Oxygen Delivery Method Room Air Intake Visit Reasons: Follow up/No-showed cath x2, discuss r/s per KM Intake Note: pt feels good Allergies lisinopril Allergy (Severe, Verified 06/19/23 11:44) Angioedema hydroxyzine [HYDROXYZINE] Adverse Reaction (Intermediate, Verified 06/19/23 11:44) reports redness and swelling HPI Comments Details: 57-year-old female presents today to discuss not presenting for her cardiac catherization twice. She was scheduled for a cardiac catherization due to an abnormal nuclear stress test and pre-operative evlauation for a TKA. She reports she was having trouble with her arthritis and could not get out of bed. She reports she is very sedentary and avoids leaving the house as she lives on the third floor and she becomes short of breath and has chest discomfort with the stairs. [facility] Medical History Left against medical advice Angioedema History of fatty infiltration of liver History of alcohol dependence History of heroin use Chronic knee pain Chronic back pain History of seizure History of panic disorder History of opioid abuse Depression HTN (hypertension) History of left bundle branch block (LBBB) Migraine Anxiety Asthma Surgical History Hx of exploratory laparotomy Hx of colonoscopy Family History Mother Heart disease Arthritis HTN (hypertension) Social History Household Members: None Housing: House Do you presently have visiting nurse or other home services: No Alcohol intake: current Alcohol intake frequency: does not drink Patient Tobacco Use Status: Former Tobacco user Quit Date: 2021 Years Smoked: 10 +/- Substance Use Type: Heroin, Opiates and Painkillers service: No Current occupational status: unemployed Review of Systems Const Denies weakness ENT Denies dizziness Card Denies chest pain, Denies chest pain with activity, Denies syncope, Denies rapid heart rate, Denies pedal edema, Denies edema, Denies leg edema, Denies lightheadedness, Denies palpitations, Denies dyspnea, Denies dyspnea on exertion and Denies orthopnea Resp Denies cough, Denies dyspnea and Denies dyspnea on exertion GI Denies hematochezia and Denies change in stool character Musc Denies abnormal gait, Denies muscle cramps, Denies muscle weakness, Denies numbness, Denies radiating pain into limb and Denies tingling Neuro Denies abnormal gait, Denies dizziness, Denies syncope, Denies numbness, Denies tingling and Denies weakness Endo Denies palpitations Physical Exam Vital Signs: Last Vital Signs Pulse 98 07/09/23 13:52 BP 130/72 07/09/23 13:52 Pulse Ox 98 07/09/23 13:52 Oxygen Delivery Method Room Air 07/09/23 13:52 BMI result Body Mass Index 40.6 Const General: healthy appearing and no acute distress Orientation/consciousness: patient oriented x3 Limitations: ambulation with walker HEENT Head: Yes normal to inspection Eyes General: appearance normal, both eyes and all related structures Neck Neck: Yes normal visual inspection Chest Chest palpation & inspection: normal inspection of the chest Resp Effort & Inspection: normal respiratory effort Auscultation: clear to auscultation bilaterally Cardio Jugular venous distension: no JVD Palpation: normal PMI Rate: regular rate Rhythm: regular rhythm Heart sounds: S1 normal heart sound present, S2 normal heart sound present, no click, no gallops, no murmurs and no rubs GI Inspection: Yes normal to inspection Palpation (GI): Soft to palpation Skin General skin exam: no rashes or lesions noted Neuro General: patient oriented x3 Extrem General: Yes normal to inspection Psych Appearance: grossly normal Assessment & Plan Assessment & Plan (1) Abnormal nuclear stress test: Code(s): R94.39 - Abnormal result of other cardiovascular function study Category: Medical Plan Discussed in detail about the cardiac catherization procedure, the importance of the test, and the importance of showing up. She reports she did not understand the importance of the procedure but does now. She states her arthritis was very painful due to the weather. Discussed techniques for her to ensure arrival to appointments on time such as having family near by to help her get up and ready, alarms set earlier, and later start times for appointments. She reports she fully understands and promises to show up for any further testing. Will discuss with Dr Wahl further.
[2023-07-09 13:52] VITALS: BP 130/72; PULSE 98; O2SAT 98; BMI 40.6
== END 2023-07-09 14:34 | disposition home or self-care (01) ==
PROVIDERS: PCP Nurse Practitioner Primary Care; Visit Provider Nurse Practitioner
DX: R94.39 Abnormal result of other cardiovascular function study (principal)
CPT/HCPCS: 99213

== ENCOUNTER → 2023-07-09 13:44 | Outpatient (BNVA) | payer MEDICAID, SELFPAY | PROVIDERS: PCP Nurse Practitioner Primary Care; Visit Provider Nurse Practitioner | DX: R94.39 Abnormal result of other cardiovascular function study (principal); Z98.890 Other specified postprocedural states | CPT/HCPCS: 99212 ==

== ENCOUNTER 2023-07-13 16:58 | Outpatient (REF) | payer MEDICAID, SELFPAY | END 2023-07-13 16:59 | disposition home or self-care (01) | LOC: HO.HHCLNP 16:58 | PROVIDERS: Visit Provider Family Medicine | DX: F11.20 Opioid dependence, uncomplicated (principal) | CPT/HCPCS: 80307 ==

== ENCOUNTER 2023-08-10 15:54 | Outpatient (REF) | payer MEDICAID, SELFPAY ==
[2023-08-10 17:35] LABS: MANUAL DIFF FLAG NO
[2023-08-10 17:42] LABS: Basophils Absolute Auto 0.1 X10*3/uL (0.0-0.2); Eosinophils Percent Auto 11.9 % (0-4); Hematocrit 41.5 % (37.0-47.0); Hemoglobin 13.4 g/dl (12.0-16.0); Imm Gran Abs Auto 0.03 X10*3/uL (0.00-0.03); Imm Gran Pct Auto 0.4 % (0.0-0.4); Lymphocytes Absolute Auto 2.5 X10*3/uL (1.2-4.9); Lymphocytes Percent Auto 30.8 % (20-40); Mean Corpuscular HGB Conc 32.3 g/dl (31.0-35.0); Mean Corpuscular Hemoglobin 28.5 pg (27.0-33.0); Mean Corpuscular Volume 88.1 fL (80.0-98.0); Mean Platelet Volume 9.5 fL (9.4-12.3); Monocytes Absolute Auto 0.6 X10*3/uL (0.1-1.2); Monocytes Percent Auto 7.3 % (2-11); Neutrophils Percent Auto 48.6 % (45-73); Platelet Count 377 X10*3/uL (160-400); Red Blood Count 4.71 X10*6/uL (4.20-5.50); Red Cell Distribution Width 13.4 % (11.0-16.0); White Blood Count 8.2 X10*3/uL (4.8-10.8)
[2023-08-10 17:58] LABS: Anion Gap 13 (12-20); Blood Urea Nitrogen 13 mg/dL (9-16); Carbon Dioxide 31 mmol/L (22-29); Chloride 102 mmol/L (96-108); Estimated Glomerular Filt Rate > 60; Glucose Random 109 mg/dL (60-115); Potassium 4.1 mmol/L (3.3-5.1); Sodium 142 mmol/L (135-145)
== END 2023-08-10 15:55 | disposition home or self-care (01) ==
LOC: HO.HHCL 15:54
PROVIDERS: Nurse Practitioner Primary Care; Visit Provider Nurse Practitioner Family
DX: L65.9 Nonscarring hair loss, unspecified (principal); R94.39 Abnormal result of other cardiovascular function study
CPT/HCPCS: 36415; 80048; 84443; 85025; 85610

== ENCOUNTER → 2023-08-20 23:59 | Outpatient (BNV) | payer MEDICAID, SELFPAY | PROVIDERS: PCP Nurse Practitioner Primary Care; Visit Provider Internal Medicine Cardiovascular Disease | DX: R93.1 Abnormal findings on diagnostic imaging of heart and coronary circulation (principal); Z01.810 Encounter for preprocedural cardiovascular examination | CPT/HCPCS: 93458; 99152 ==

== ENCOUNTER 2023-10-16 10:18 | Outpatient (REF) | payer MEDICAID, SELFPAY ==
--- NOTE | ~2023-10-16 | US_ITS ---
EXAMINATION: US VENOUS ULTRASOUND WITH DOPPLER LOWER EXTREMITY, LEFT CLINICAL INFORMATION: Left leg swelling. COMPARISON: None available. TECHNIQUE: Ultrasound of the deep veins is performed from the hip to the calf with compression sonography and color and pulse Doppler assessment. Spectral analysis with color-flow imaging is performed. FINDINGS: There is normal venous compression and respiratory variation and augmented flow. The visualized common femoral vein, superficial femoral vein, profunda femoral vein, popliteal vein, and the trifurcation region shows no evidence of deep venous thrombosis. If the patient's symptoms persist, followup ultrasound in 5 days 7 days might be of value to exclude proximal propagation from a non-visualized calf vein. US/US venous duplex LE IMPRESSION: No DVT demonstrated in the left lower extremity.
== END 2023-10-16 10:19 | disposition home or self-care (01) ==
LOC: HO.US 10:18
PROVIDERS: PCP Nurse Practitioner Primary Care; Visit Provider Emergency Medicine
DX: R60.0 Localized edema (principal)
CPT/HCPCS: 93971

== ENCOUNTER 2023-10-25 05:51 | Emergency (ER) | payer MEDICAID, SELFPAY ==
--- NOTE | 2023-10-25 | ECG_ITS ---
Test Reason : CP Blood Pressure : / mmHG Vent. Rate : 089 BPM Atrial Rate : 089 BPM P-R Int : 138 ms QRS Dur : 134 ms QT Int : 414 ms P-R-T Axes : 062 -12 115 degrees QTc Int : 503 ms Normal sinus rhythm Left bundle branch block Abnormal ECG When compared with ECG of 19-JUN-2023 11:42, Left bundle branch block is now Present Referred By: Generic ED Physician Electronically Signed By:Marcelo Wahl
[2023-10-25 05:54] VITALS: BP 110/76; PULSE 90; O2SAT 98
[2023-10-25 06:03] VITALS: BP 106/61; PULSE 96; RESP 14; TEMP 37.3; O2SAT 98; BMI 32.0
--- NOTE | 2023-10-25 06:11 | PC.NURSE ---
Pt ca7ox4, no signs of distress. Pt reports sharp intermittent 10/10 left cp that radiates to the right of chest Pt denies n/v/visual changes ekg done Pt placed on bedside monitor. vitals stable Plan of care ongoing.
--- NOTE | 2023-10-25 06:30 | ED_ITS ---
HPI - Chest Pain General Chief Complaint: Chest Pain Stated Complaint: chest pain Time Seen by Provider: 10/25/23 06:30 History of Present Illness ED Provider: Rock POWELL narrative: The patient is a 58-year-old female who says that she was awoken from sleep by sharp chest pain this morning. She says the pain was sharp and worse with movements and deep breaths. She says that she has had pains like this in the past before but not recently. No fever, sweats, chills. Related Data Home Medications ?Medication ?Instructions ?Recorded ?Confirmed cetirizine 10 mg tablet 10 mg PO DAILY 08/28/21 04/23/23 clonidine HCl 0.1 mg tablet 0.1 mg PO BID 08/28/21 04/23/23 hydrochlorothiazide 12.5 mg tablet 12.5 mg PO DAILY 08/28/21 04/23/23 naloxone 4 mg/actuation nasal 0 spray intranasal 08/28/21 04/23/23 spray (Narcan) buprenorphine 8 mg-naloxone 2 mg 10 mg sublingual BID 10/15/22 04/23/23 sublingual film (Suboxone) Previous Rx's ?Medication ?Instructions ?Recorded albuterol sulfate 90 mcg/actuation 2 puff inhalation Q4-6H PRN 12/19/20 aerosol inhaler (ProAir HFA) Wheezing #8.5 grams metoprolol succinate 25 mg 25 mg PO DAILY #30 tabs 05/13/21 tablet,extended release 24 hr (Toprol XL) prednisone 20 mg tablet 40 mg (2 x 20 mg) PO DAILY 5 days 10/25/22 #10 tabs aspirin 81 mg tablet,delayed 81 mg PO DAILY #30 tabs 05/19/23 release (Adult Low Dose Aspirin) isosorbide mononitrate 30 mg 30 mg PO DAILY #30 tabs 05/19/23 tablet,extended release 24 hr prednisone 50 mg tablet 50 mg PO DAILY 4 days #4 tabs 06/19/23 Allergies Allergy/AdvReac Type Severity Reaction Status Date / Time lisinopril Allergy Severe Angioedema Verified 10/25/23 06:05 hydroxyzine [HYDROXYZINE] AdvReac Intermediate reports Verified 10/25/23 06:05 redness and swelling Review of Systems 2 Review of Systems: Yes all other systems are reviewed and are negative [facility] Past Medical History Medical History Left against medical advice Angioedema History of fatty infiltration of liver History of alcohol dependence History of heroin use Chronic knee pain Chronic back pain History of seizure History of panic disorder History of opioid abuse Depression HTN (hypertension) History of left bundle branch block (LBBB) Migraine Anxiety Asthma Surgical History Hx of exploratory laparotomy Hx of colonoscopy Family History Family History Mother Heart disease Arthritis HTN (hypertension) Social History Social History Household Members: None Housing: House Do you presently have visiting nurse or other home services: No Alcohol intake: current Alcohol intake frequency: holidays/special occasions only Patient Tobacco Use Status: Former Tobacco user Years Smoked: 10 +/- Smoked in Last 30 Days: No Use of substances other than those prescribed or required for medical reasons: Yes Substance Use Type: Inhalants Advance Directives: No Advance Directives Information Provided: No Do you have a plan to hurt others: No Plan service: No Current occupational status: unemployed Physical Exam 2 Vital Signs: Vital Signs: Last Vital Signs Temp 97.6 F 10/25/23 08:40 Pulse 69 10/25/23 08:40 Resp 14 10/25/23 08:40 BP 109/76 10/25/23 08:40 Pulse Ox 96 10/25/23 08:40 O2 Del Method Room Air 10/25/23 08:40 BMI result Body Mass Index 32.0 Const: Other: The patient is awake and alert. The patient does not appear in overt distress. HEENT: Other: Face is symmetrical. Mucous membranes moist. Eyes: Other: Pupils are round equal, conjunctivae clear Neck: Neck: Yes no JVD Chest: Other: There is distinct chest wall tenderness on the sternal borders. Palpation seems to reproduce the patient's pain. Resp: Effort & Inspection: normal respiratory effort Auscultation: clear to auscultation bilaterally Cardio: Rate: regular rate Rhythm: regular rhythm Heart sounds: S1 normal heart sound present and S2 normal heart sound present GI: Other: Abdomen is soft and nontender Skin: Other: Skin is dry and unremarkable Neuro: Other: The patient is awake and alert. Cranial nerves are grossly intact. She moves all 4 extremities symmetrically. She walks with a cane. She walks steadily. She has no obvious neurological deficits. Extrem: Other: No peripheral edema. No calf swelling or tenderness. No asymmetry. Medications Administered Discontinued Medications Generic Name Dose Route Start Last Admin Trade Name Aman PRN Reason Stop Dose Admin Ketorolac Tromethamine 10 mg 10/25/23 07:36 10/25/23 07:44 Ketorolac Tromethamine 15 Mg/Ml Vial IVPUSH 10/25/23 07:37 10 mg ONCE ONE Administration Medical Decision Making Medical Decision Making [facility] Narrative: The patient is a 58-year-old woman who presents for evaluation of chest pain that started at 03:00 this morning. Clinically the pain seems more like chest wall pain then either an acute coronary syndrome or a pulmonary embolism or other significant process. The patient's EKG shows a left bundle branch block and there is ST segment elevation in V2 and V1 which is prominent. There are no reciprocal changes. The patient's old medical records indicate a history of a right bundle branch block. Interestingly the the patient's most recent previous EKG does not show a significant left bundle branch block but going further back into her history there are EKGs that are fairly close in appearance to today's EKG. My overall impression was that the patient probably had chest wall pain. A D- dimer was done that was undetectable. Two troponins were done that were flat. She felt better after a dose of ketorolac. I think she may be discharged. I think her EKG findings are simply part of her left bundle branch block syndrome rather than signs of true ischemia. Lab Data 10/25/23 06:35 10/25/23 06:35 Labs: Lab Results 10/25/23 10/25/23 Range/Units 06:35 07:42 WBC 6.3 (4.8-10.8) X10*3/uL RBC 4.47 (4.20-5.50) X10*6/uL Hgb 13.0 (12.0-16.0) g/dl Hct 37.9 (37.0-47.0) % MCV 84.8 (80.0-98.0) fL MCH 29.1 (27.0-33.0) pg MCHC 34.3 (31.0-35.0) g/dl RDW 13.3 (11.0-16.0) % Plt Count 319 (160-400) X10*3/uL MPV 8.7 L (9.4-12.3) fL Immature Gran % (Auto) 0.3 (0.0-0.4) % Neut % (Auto) 51.3 (45-73) % Lymph % (Auto) 24.0 (20-40) % [place] % (Auto) 10.7 (2-11) % Eos % (Auto) 12.9 H (0-4) % Baso % (Auto) 0.8 (0-2) % Lymph # (Auto) 1.5 (1.2-4.9) X10*3/uL [place] # (Auto) 0.7 (0.1-1.2) X10*3/uL Eos # (Auto) 0.8 H (0.0-0.4) X10*3/uL Baso # (Auto) 0.1 (0.0-0.2) X10*3/uL Abs Immat Gran (auto) 0.02 (0.00-0.03) X10*3/uL Absolute Neuts (auto) 3.2 (2.0-8.3) x10*3/uL Absolute Nucleated RBC 0.000 (0.0-0.012) X10*3/uL Nucleated RBC % (auto) 0.0 (0.0-0.2) /100WBC D-Dimer High Sensitivty < 150 NG/ML Sodium 140 (135-145) mmol/L Potassium 3.3 (3.3-5.1) mmol/L Chloride 101 (96-108) mmol/L Carbon Dioxide 30 H (22-29) mmol/L Anion Gap 12 (12-20) BUN 13 (9-16) mg/dL Creatinine 0.74 (0.5-1.4) mg/dL Estim Creat Clear Calc 81.8 Estimated GFR > 60 Random Glucose 132 H (60-115) mg/dL Calcium 9.5 (8.4-10.2) mg/dL Total Bilirubin 1.0 (0.0-1.0) mg/dL AST 25 (5-31) U/L ALT 38 H (0-31) U/L Alkaline Phosphatase 132 H (39-117) U/L Troponin I High Sens 3.5 2.9 (<3.5-17.0) ng/L B-Natriuretic Peptide 12 (<100) pg/mL Total Protein 8.0 (6.5-8.0) g/dL Albumin 4.3 (3.5-5.0) g/dL Urine Color Yellow Urine Appearance Cloudy Urine pH 6.0 (5.0-9.0) Ur Specific [place] 1.020 (1.005-1.025) Urine Protein Negative (Neg-Trace) mg/dL Urine Glucose (UA) Negative (Negative) mg/dL Urine Ketones Negative (Negative) mg/dL Urine Blood Negative (Negative) Urine Nitrite Negative (Negative) Ur Leukocyte Esterase Small (1+) H (Negative) Urine RBC 0-2 (0-2) /HPF Urine WBC 6-10 (0-5) /HPF Ur Squamous Epith Cells >20 (0-2) /HPF Urine Bacteria 1+ (None Seen) Hyaline Casts 0-2 (0-2) /LPF Independent Interpretation I performed an independent interpretation of an: EKG Interpretation: EKG at 06:00 shows normal sinus rhythm at 89 beats per minute. There is a left bundle branch block present. There is a suggestion of ST segment elevation in V1 and V2 but I think this is probably consistent with a left bundle branch block pattern rather than a manifestation of ischemia. Previous EKGs are somewhat variable but there are previous EKGs that resemble today's EKG. Discharge Plan Discharge Clinical Impression: Acute chest wall pain Patient Disposition: Home, Self-Care Instructions: Chest Wall Pain (ED) Additional Instructions: Your testing in the emergency room is very reassuring. Your testing shows no evidence of a heart attack. Additionally there is no sign of a blood clot in your lungs. I think that your pain is likely coming from your chest wall. The chest wall is made a ribs, cartilage, and muscles. You may use acetaminophen and ibuprofen as needed for pain. Please follow up soon with your regular doctor. Return to the emergency room if worse. Prescriptions: No Action isosorbide mononitrate 30 mg tablet extended release 24 hr 30 mg PO DAILY Qty: 30 5RF aspirin [Adult Low Dose Aspirin] 81 mg tablet,delayed release (DR/EC) 81 mg PO DAILY Qty: 30 5RF metoprolol succinate [Toprol XL] 25 mg tablet extended release 24 hr 25 mg PO DAILY Qty: 30 1RF albuterol sulfate [ProAir HFA] 90 mcg/actuation HFA aerosol inhaler 2 puff inhalation Q4-6H PRN (Reason: Wheezing) Qty: 8.5 0RF prednisone 20 mg tablet 40 mg PO DAILY 5 Days Qty: 10 0RF prednisone 50 mg tablet 50 mg PO DAILY 4 Days Qty: 4 0RF hydrochlorothiazide 12.5 mg tablet 12.5 mg PO DAILY cetirizine 10 mg tablet 10 mg PO DAILY clonidine HCl 0.1 mg tablet 0.1 mg PO BID naloxone [Narcan] 4 mg/actuation spray,non-aerosol 0 spray intranasal buprenorphine-naloxone [Suboxone] 8-2 mg film 10 mg sublingual BID Referrals: Juani Sosa, [employer] [facility] [Primary Care Provider] - (Chest wall pain) Interventions: ED Discharge Assessment Last Done: 10/25/23 08:40 Discharge Date/Time: 10/25/23 08:40 Print Language: New Zealander
[2023-10-25 06:39] LABS: MANUAL DIFF FLAG NO
[2023-10-25 06:44] LABS: Appearance Urine Cloudy; Color Urine Yellow; Glucose Urine UA Negative (Negative); Leukocyte Esterase Urine Small (1+) (Negative); Nitrite Urine Negative (Negative); UMIC TRIGGER UACC YES; Urine Blood Negative (Negative); Urine Ketones Negative (Negative); Urine Protein Negative (Neg-Trace)
[2023-10-25 06:55] LABS: Basophils Absolute Auto 0.1 X10*3/uL (0.0-0.2); Basophils Percent Auto 0.8 % (0-2); Eosinophils Absolute Auto 0.8 X10*3/uL (0.0-0.4); Eosinophils Percent Auto 12.9 % (0-4); Hematocrit 37.9 % (37.0-47.0); Imm Gran Abs Auto 0.02 X10*3/uL (0.00-0.03); Imm Gran Pct Auto 0.3 % (0.0-0.4); Lymphocytes Absolute Auto 1.5 X10*3/uL (1.2-4.9); Mean Corpuscular HGB Conc 34.3 g/dl (31.0-35.0); Mean Corpuscular Hemoglobin 29.1 pg (27.0-33.0); Mean Corpuscular Volume 84.8 fL (80.0-98.0); Mean Platelet Volume 8.7 fL (9.4-12.3); Monocytes Absolute Auto 0.7 X10*3/uL (0.1-1.2); Monocytes Percent Auto 10.7 % (2-11); Neutrophils Absolute Auto 3.2 x10*3/uL (2.0-8.3); Neutrophils Percent Auto 51.3 % (45-73); Platelet Count 319 X10*3/uL (160-400); Red Blood Count 4.47 X10*6/uL (4.20-5.50); Red Cell Distribution Width 13.3 % (11.0-16.0); White Blood Count 6.3 X10*3/uL (4.8-10.8)
[2023-10-25 07:07] LABS: Alanine Aminotransferase 38 U/L (0-31); Albumin Level 4.3 g/dL (3.5-5.0); Alkaline Phosphatase 132 U/L (39-117); Anion Gap 12 (12-20); Aspartate Amino Transferase 25 U/L (5-31); Blood Urea Nitrogen 13 mg/dL (9-16); Calcium 9.5 mg/dL (8.4-10.2); Carbon Dioxide 30 mmol/L (22-29); Chloride 101 mmol/L (96-108); Creatinine Clr Calc Pharmacy 81.8; Estimated Glomerular Filt Rate > 60; Glucose Random 132 mg/dL (60-115); Potassium 3.3 mmol/L (3.3-5.1); Sodium 140 mmol/L (135-145)
[2023-10-25 07:08] LABS: B Type Natriuretic Peptide 12 pg/mL (<100)
[2023-10-25 07:09] LABS: D Dimer High Sensitivity < 150 NG/ML
[2023-10-25 07:14] LABS: Troponin-I High Sensitivity 3.5 ng/L (<3.5-17.0)
[2023-10-25 07:43] VITALS: BP 109/76; PULSE 69; RESP 14; TEMP 36.4; O2SAT 96
[2023-10-25] MEDS: Ketorolac Tromethamine 15 MG/ML VIAL 10 MG IVPUSH (07:44)
[2023-10-25 07:48] LABS: Bacteria Urine 1+ (None Seen); Hyaline Casts Urine 0-2 /LPF (0-2); RBC Urine 0-2 /HPF (0-2); Squamous Epithelial Cell Urine >20 /HPF (0-2); UACC Culture Trigger YES
[2023-10-25 08:19] LABS: Troponin-I High Sensitivity 2.9 ng/L (<3.5-17.0)
[2023-10-25 08:40] VITALS: BP 109/76; PULSE 69; RESP 14; TEMP 36.4; O2SAT 96
== END 2023-10-25 08:40 | disposition home or self-care (01) ==
PROVIDERS: Emergency Provider Emergency Medicine; PCP Nurse Practitioner Primary Care
DX: R07.89 Other chest pain (principal); R06.02 Shortness of breath; Z79.899 Other long term (current) drug therapy; Z87.891 Personal history of nicotine dependence
CPT/HCPCS: 36415; 80053; 81001; 83880; 84484; 85025; 85379; 87086; 93005; 96372; 99284; 99285; J1885

== ENCOUNTER → 2023-10-25 06:00 | Outpatient (BNV) | payer MEDICAID, SELFPAY | PROVIDERS: Emergency Provider Emergency Medicine; PCP Nurse Practitioner Primary Care; Visit Provider Internal Medicine Cardiovascular Disease | DX: I44.7 Left bundle-branch block, unspecified (principal) | CPT/HCPCS: 93010 ==

== ENCOUNTER 2023-11-09 18:30 | Emergency (ER) | payer MEDICAID, SELFPAY ==
--- NOTE | ~2023-11-09 | XR_ITS ---
EXAMINATION: XR CHEST CLINICAL INFORMATION: Chest pain COMPARISON: Chest 06/19/2023 TECHNIQUE: 2 views of the chest were obtained. FINDINGS: The lungs are well-expanded and clear. The heart size is enlarged. There is prominent right paracardiac density likely fat. It is stable. Pulmonary vascularity is normal. No gross bony abnormality seen except for mild dorsal spine spondylosis. XR/XR chest 2V IMPRESSION: Mild cardiomegaly. No acute process seen. Mild cardiomegaly otherwise no acute process seen. No major change to previous exam 06/19/2023.
--- NOTE | ~2023-11-09 | US_ITS ---
EXAMINATION: US VENOUS ULTRASOUND WITH DOPPLER LOWER EXTREMITY, LEFT CLINICAL INFORMATION: Left lower extremity swelling and pain. COMPARISON: None available. TECHNIQUE: Ultrasound of the deep veins is performed from the hip to the calf with compression sonography and color and pulse Doppler assessment. Spectral analysis with color-flow imaging is performed. FINDINGS: There is normal venous compression and respiratory variation and augmented flow. The visualized common femoral vein, superficial femoral vein, profunda femoral vein, popliteal vein, and the trifurcation region shows no evidence of deep venous thrombosis. There is no significant popliteal fossa cyst. If the patient's symptoms persist, followup ultrasound in 5 days 7 days might be of value to exclude proximal propagation from a non-visualized calf vein. US/US venous duplex LE LT IMPRESSION: No DVT demonstrated in the left lower extremity.
[2023-11-09 18:55] VITALS: BP 107/61; PULSE 81; RESP 20; TEMP 36.8; O2SAT 96; BMI 36.3
[2023-11-09 19:00] VITALS: BP 104/69; PULSE 74; O2SAT 97
--- NOTE | 2023-11-09 19:00 | ECG_ITS ---
Test Reason : CP Blood Pressure : / mmHG Vent. Rate : 076 BPM Atrial Rate : 076 BPM P-R Int : 150 ms QRS Dur : 090 ms QT Int : 400 ms P-R-T Axes : 054 011 048 degrees QTc Int : 450 ms Normal sinus rhythm Normal ECG When compared with ECG of 25-OCT-2023 06:00, Left bundle branch block is no longer Present Referred By: Amna Morris Electronically Signed By:LOUISE GONZALEZ
[2023-11-09] MEDS: Ketorolac Tromethamine 15 MG/ML VIAL IVPUSH (19:17)
[2023-11-09 19:35] VITALS: BP 97/55; PULSE 71; RESP 16; TEMP 36.9; O2SAT 96
--- NOTE | 2023-11-09 19:36 | MHC.EDTECH ---
This tech took over care of patient at 1900,patient BIBDarrel,changed into hospital attire,RN placed patient on the ekg monitor, EKG taken per order and signed by provider,vitals taken at this time BP is low 97/55 RN made aware,call grossman in reach
--- NOTE | 2023-11-09 19:45 | ED_ITS ---
HPI - Chest Pain General Chief Complaint: Chest Pain Stated Complaint: MID STENAL CHEST PAIN,HEADACHE,NAUSEA Time Seen by Provider: 11/09/23 18:38 Source: patient History of Present Illness ED Provider: Amna Morris PA-C HPI narrative: 58-year-old female with history of morbid obesity, KENDRA, asthma, hypertension, prior heroin abuse presents with chest pain x4 days. Pain over central to left chest, unable to describe the nature of her pain, however it is worse with heavy lifting, breathing and palpation of chest wall. Patient states, prior to the onset of her symptoms, that she did lift a heavy object. In addition, patient states she has had cough and cold symptoms with wheezing over the past 4 days. Patient states she has been using her home inhalers without relief from symptoms. Lastly, patient complains of worsening left lower calf pain and swelling. Denies history of DVT, recent travel, recent surgery, hemoptysis. Related Data Home Medications ?Medication ?Instructions ?Recorded ?Confirmed cetirizine 10 mg tablet 10 mg PO DAILY 08/28/21 04/23/23 clonidine HCl 0.1 mg tablet 0.1 mg PO BID 08/28/21 04/23/23 hydrochlorothiazide 12.5 mg tablet 12.5 mg PO DAILY 08/28/21 04/23/23 naloxone 4 mg/actuation nasal 0 spray intranasal 08/28/21 04/23/23 spray (Narcan) buprenorphine 8 mg-naloxone 2 mg 10 mg sublingual BID 10/15/22 04/23/23 sublingual film (Suboxone) Previous Rx's ?Medication ?Instructions ?Recorded albuterol sulfate 90 mcg/actuation 2 puff inhalation Q4-6H PRN 12/19/20 aerosol inhaler (ProAir HFA) Wheezing #8.5 grams metoprolol succinate 25 mg 25 mg PO DAILY #30 tabs 05/13/21 tablet,extended release 24 hr (Toprol XL) prednisone 20 mg tablet 40 mg (2 x 20 mg) PO DAILY 5 days 10/25/22 #10 tabs aspirin 81 mg tablet,delayed 81 mg PO DAILY #30 tabs 05/19/23 release (Adult Low Dose Aspirin) isosorbide mononitrate 30 mg 30 mg PO DAILY #30 tabs 05/19/23 tablet,extended release 24 hr prednisone 50 mg tablet 50 mg PO DAILY 4 days #4 tabs 06/19/23 Allergies Allergy/AdvReac Type Severity Reaction Status Date / Time lisinopril Allergy Severe Angioedema Verified 11/09/23 18:57 hydroxyzine [HYDROXYZINE] AdvReac Intermediate reports Verified 11/09/23 18:57 redness and swelling Review of Systems 2 Review of Systems: Yes all other systems are reviewed and are negative ENT: Reports nasal discharge and Reports post nasal drip Cardiovascular: Cardiovascular: Reports chest pain and Reports dyspnea Respiratory: Respiratory: Reports cough, Reports dyspnea and Reports wheezing Gastrointestinal: Gastrointestinal: Denies abdominal pain and Denies nausea Allergic/Immunologic: Allergic/Immunologic: Reports wheezing PMFSH Past Medical History Attestation statement: The following information was validated with the patient. Medical History Left against medical advice Angioedema History of fatty infiltration of liver History of alcohol dependence History of heroin use Chronic knee pain Chronic back pain History of seizure History of panic disorder History of opioid abuse Depression HTN (hypertension) History of left bundle branch block (LBBB) Migraine Anxiety Asthma Surgical History Hx of exploratory laparotomy Hx of colonoscopy Family History Family History Mother Heart disease Arthritis HTN (hypertension) Social History Social History Household Members: None Housing: House Do you presently have visiting nurse or other home services: No Alcohol intake: current Alcohol intake frequency: holidays/special occasions only Patient Tobacco Use Status: Former Tobacco user Years Smoked: 10 +/- Smoked in Last 30 Days: No Use of substances other than those prescribed or required for medical reasons: No Substance Use Type: Inhalants Advance Directives: No Advance Directives Information Provided: Yes Do you have a plan to hurt others: No Plan service: No Current occupational status: unemployed Physical Exam 2 Vital Signs: Vital Signs: Last Vital Signs Temp 98.5 F 11/09/23 19:35 Pulse 71 11/09/23 19:35 Resp 16 11/09/23 19:35 BP 97/55 L 11/09/23 19:35 Pulse Ox 96 11/09/23 19:35 O2 Del Method Room Air 11/09/23 19:35 BMI result Body Mass Index 36.3 Const: Other: Alert, appears older than stated age Orientation/consciousness: patient oriented x3 Chest: Other: Pain elicited with palpation of left anterior chest wall, no deformity, no overlying erythema or ecchymosis Resp: Other: Nonlabored respirations, lungs clear to auscultation, no wheezing Cardio: Other: Peripheral edema is bilateral Skin: Other: Warm dry no rash Neuro: General: patient oriented x3, no focal motor deficits and CN's II-XI intact bilaterally Extrem: Other: Objectively, the left calf is larger than the right, it is not tense, compartments are soft, neurovascularly intact Psych: Other: Calm cooperative Course Reevaluation(s) Reevaluation #1: Patient wants to leave against medical advice, her assessment is not complete, she has several diagnostics pending. Time: 20:35 Medications Administered Discontinued Medications Generic Name Dose Route Start Last Admin Trade Name Freq PRN Reason Stop Dose Admin Ketorolac Tromethamine 15 mg 11/09/23 19:05 11/09/23 19:17 Ketorolac Tromethamine 15 Mg/Ml Vial IVPUSH 11/09/23 19:06 15 mg ONCE ONE Administration Medical Decision Making Medical Decision Making MDM Narrative: 58-year-old female with history of morbid obesity, KENDRA, asthma, hypertension, prior heroin abuse presents with chest pain x4 days. Pain over central to left chest, unable to describe the nature of her pain, however it is worse with heavy lifting, breathing and palpation of chest wall. Patient states, prior to the onset of her symptoms, that she did lift a heavy object. In addition, patient states she has had cough and cold symptoms with wheezing over the past 4 days. Patient states she has been using her home inhalers without relief from symptoms. Lastly, patient complains of worsening left lower calf pain and swelling. Denies history of DVT, recent travel, recent surgery, hemoptysis. Problem: Age, obesity, hypertension History: Per patient I have considered the following differential diagnoses: DVT, PE, ACS, costochondritis, viral syndrome, asthma exacerbation, pneumonia, compartment syndrome Plan: ACS considered, the patient has had an abnormal stress test in the past, she has risk factors for vascular disease. Screening labs including cardiac enzymes, EKG and chest x-ray ordered. I am concerned for DVT, she has objective evidence of unilateral calf pain and swelling, we will add a Doppler study. I am also concerned for potential PE despite the fact that she is not tachycardic nor hypoxic, she is having sciatic chest pain, adding a D-dimer. She does have a mechanism of injury for chest wall strain, we will give Toradol. Given concurrent cough cold symptoms with report of wheezing, this could also be viral syndrome. Her pain could be related to costochondritis. Doubtful to be pneumonia, her lungs are clear, she has not had a productive cough. Again, her pulmonary exam was unremarkable, she has no wheezing, this is not an asthma exacerbation. Lastly, considered compartment syndrome of the left lower extremity, however she has not had recent trauma, the compartments are soft and she is neurovascularly intact. I have independently reviewed the following tests: Labs: Labs in process EKG: Normal sinus rhythm, rate of 76, no ischemic changes no ectopy, QT 450, question delta waves V5 and V6 Chest x-ray: Doppler left lower extremity: Lab Data 11/09/23 19:57 11/09/23 19:57 Labs: Lab Results 11/09/23 Range/Units 19:57 WBC 8.5 (4.8-10.8) X10*3/uL RBC 4.08 L (4.20-5.50) X10*6/uL Hgb 11.7 L (12.0-16.0) g/dl Hct 35.1 L (37.0-47.0) % MCV 86.0 (80.0-98.0) fL MCH 28.7 (27.0-33.0) pg MCHC 33.3 (31.0-35.0) g/dl RDW 13.0 (11.0-16.0) % Plt Count 332 (160-400) X10*3/uL MPV 8.9 L (9.4-12.3) fL Immature Gran % (Auto) 0.2 (0.0-0.4) % Neut % (Auto) 68.1 (45-73) % Lymph % (Auto) 15.8 L (20-40) % [place] % (Auto) 8.4 (2-11) % Eos % (Auto) 6.7 H (0-4) % Baso % (Auto) 0.8 (0-2) % Lymph # (Auto) 1.3 (1.2-4.9) X10*3/uL [place] # (Auto) 0.7 (0.1-1.2) X10*3/uL Eos # (Auto) 0.6 H (0.0-0.4) X10*3/uL Baso # (Auto) 0.1 (0.0-0.2) X10*3/uL Abs Immat Gran (auto) 0.02 (0.00-0.03) X10*3/uL Absolute Neuts (auto) 5.8 (2.0-8.3) x10*3/uL Absolute Nucleated RBC 0.000 (0.0-0.012) X10*3/uL Nucleated RBC % (auto) 0.0 (0.0-0.2) /100WBC D-Dimer High Sensitivty < 150 NG/ML Sodium 138 (135-145) mmol/L Potassium 3.8 (3.3-5.1) mmol/L Chloride 103 (96-108) mmol/L Carbon Dioxide 26 (22-29) mmol/L Anion Gap 13 (12-20) BUN 21 H (9-16) mg/dL Creatinine 0.79 (0.5-1.4) mg/dL Estim Creat Clear Calc 94.7 Estimated GFR > 60 Random Glucose 131 H (60-115) mg/dL Calcium 9.4 (8.4-10.2) mg/dL Magnesium 1.8 (1.6-2.6) mg/dL Total Bilirubin 0.3 (0.0-1.0) mg/dL AST 21 (5-31) U/L ALT 30 (0-31) U/L Alkaline Phosphatase 123 H (39-117) U/L Troponin I High Sens 3.6 (<3.5-17.0) ng/L B-Natriuretic Peptide 32 (<100) pg/mL Total Protein 7.3 (6.5-8.0) g/dL Albumin 3.8 (3.5-5.0) g/dL Discharge Plan Discharge Clinical Impression: Left leg pain Chest pain Qualifiers: Chest pain type: other chest pain Qualified Code(s): R07.89 - Other chest pain Patient Disposition: Left Against Medical Advice Additional Instructions: You chose to leave against medical advice, your assessment is yet to be complete. You can access your patient portal to review the results of the diagnostic studies that were ordered. Follow up with your primary care provider as needed. Prescriptions: No Action isosorbide mononitrate 30 mg tablet extended release 24 hr 30 mg PO DAILY Qty: 30 5RF aspirin [Adult Low Dose Aspirin] 81 mg tablet,delayed release (DR/EC) 81 mg PO DAILY Qty: 30 5RF metoprolol succinate [Toprol XL] 25 mg tablet extended release 24 hr 25 mg PO DAILY Qty: 30 1RF albuterol sulfate [ProAir HFA] 90 mcg/actuation HFA aerosol inhaler 2 puff inhalation Q4-6H PRN (Reason: Wheezing) Qty: 8.5 0RF prednisone 20 mg tablet 40 mg PO DAILY 5 Days Qty: 10 0RF prednisone 50 mg tablet 50 mg PO DAILY 4 Days Qty: 4 0RF hydrochlorothiazide 12.5 mg tablet 12.5 mg PO DAILY cetirizine 10 mg tablet 10 mg PO DAILY clonidine HCl 0.1 mg tablet 0.1 mg PO BID naloxone [Narcan] 4 mg/actuation spray,non-aerosol 0 spray intranasal buprenorphine-naloxone [Suboxone] 8-2 mg film 10 mg sublingual BID Print Language: Ukrainian
--- NOTE | 2023-11-09 20:00 | MHC.EDTECH ---
Labs drawn at this time,sent to lab.
[2023-11-09 20:04] LABS: MANUAL DIFF FLAG NO
[2023-11-09 20:12] LABS: Basophils Absolute Auto 0.1 X10*3/uL (0.0-0.2); Basophils Percent Auto 0.8 % (0-2); Eosinophils Absolute Auto 0.6 X10*3/uL (0.0-0.4); Eosinophils Percent Auto 6.7 % (0-4); Hematocrit 35.1 % (37.0-47.0); Hemoglobin 11.7 g/dl (12.0-16.0); Imm Gran Abs Auto 0.02 X10*3/uL (0.00-0.03); Imm Gran Pct Auto 0.2 % (0.0-0.4); Lymphocytes Absolute Auto 1.3 X10*3/uL (1.2-4.9); Lymphocytes Percent Auto 15.8 % (20-40); Mean Corpuscular HGB Conc 33.3 g/dl (31.0-35.0); Mean Corpuscular Hemoglobin 28.7 pg (27.0-33.0); Mean Platelet Volume 8.9 fL (9.4-12.3); Monocytes Absolute Auto 0.7 X10*3/uL (0.1-1.2); Monocytes Percent Auto 8.4 % (2-11); Neutrophils Absolute Auto 5.8 x10*3/uL (2.0-8.3); Neutrophils Percent Auto 68.1 % (45-73); Platelet Count 332 X10*3/uL (160-400); Red Blood Count 4.08 X10*6/uL (4.20-5.50); White Blood Count 8.5 X10*3/uL (4.8-10.8)
[2023-11-09 20:23] LABS: B Type Natriuretic Peptide 32 pg/mL (<100); Troponin-I High Sensitivity 3.6 ng/L (<3.5-17.0)
[2023-11-09 20:26] LABS: Alanine Aminotransferase 30 U/L (0-31); Albumin Level 3.8 g/dL (3.5-5.0); Alkaline Phosphatase 123 U/L (39-117); Anion Gap 13 (12-20); Aspartate Amino Transferase 21 U/L (5-31); Bilirubin Total 0.3 mg/dL (0.0-1.0); Blood Urea Nitrogen 21 mg/dL (9-16); Calcium 9.4 mg/dL (8.4-10.2); Carbon Dioxide 26 mmol/L (22-29); Chloride 103 mmol/L (96-108); Creatinine Clr Calc Pharmacy 94.7; Estimated Glomerular Filt Rate > 60; Glucose Random 131 mg/dL (60-115); Magnesium 1.8 mg/dL (1.6-2.6); Potassium 3.8 mmol/L (3.3-5.1); Sodium 138 mmol/L (135-145); Total Protein 7.3 g/dL (6.5-8.0)
[2023-11-09 20:39] LABS: D Dimer High Sensitivity < 150 NG/ML
[2023-11-09 20:43] VITALS: BP 97/55; PULSE 71; RESP 16; TEMP 36.9; O2SAT 96
--- NOTE | 2023-11-09 20:45 | PC.NURSE ---
Patient informed JAMARCUST Neyda she needed to go home because here ride was here, offered ride home once assessment complete, patient refused, says the last time she was in the ER she was told that and ultimately had to walk home, assured patient ride home would be acquired, patient was set on going home, stating she thought the whole work up would be done quicker. Explained to patient work up for chest pain does take some time if no immediate obvious cause determined. Provider Karyn made aware, patient DC'd w/ [facility] paperwork.
== END 2023-11-09 20:48 | disposition left against medical advice (07) ==
PROVIDERS: Physician Assistant Medical; Emergency Provider Internal Medicine; PCP Nurse Practitioner Primary Care
DX: R07.89 Other chest pain (principal); M79.662 Pain in left lower leg; R05.9 Cough, unspecified; Z53.29 Procedure and treatment not carried out because of patient's decision for other reasons; I10 Essential (primary) hypertension; J45.909 Unspecified asthma, uncomplicated; F11.20 Opioid dependence, uncomplicated; E66.9 Obesity, unspecified; Z68.36 Body mass index [BMI] 36.0-36.9, adult; Z79.899 Other long term (current) drug therapy; Z79.82 Long term (current) use of aspirin; Z87.891 Personal history of nicotine dependence
CPT/HCPCS: 36415; 71046; 80053; 83735; 83880; 84484; 85025; 85379; 93005; 93971; 96374; 99284; 99285; J1885

== ENCOUNTER 2023-11-17 08:47 | Outpatient (REF) | payer MEDICAID, SELFPAY | END 2023-11-17 08:48 | disposition home or self-care (01) | LOC: HO.HOSX 08:47 | PROVIDERS: Visit Provider Orthopaedic Surgery | DX: M25.572 Pain in left ankle and joints of left foot (principal) | CPT/HCPCS: 20610; 99212; J1010 ==

== ENCOUNTER 2023-11-17 10:35 | Outpatient (AMB) | payer MEDICAID, SELFPAY ==
--- NOTE | 2023-11-17 10:39 | MHC.OFFVIS ---
Intake Visit Reasons: Left knee pain Intake Note: Gaby is a 58 year old female who presents with complaints of progressively worsening left knee pain. The patient describes her pain as sharp in nature. Her pain has gotten worse over the last few months in spite of continued non operative treatments. She has tried Tylenol and ibuprofen which gave her minimal relief. She has also worn a compression sleeve which gives her mild relief. She would like to hold off on surgery for as long as possible. Allergies lisinopril Allergy (Severe, Verified 11/17/23 10:43) Angioedema hydroxyzine [HYDROXYZINE] Adverse Reaction (Intermediate, Verified 11/17/23 10:43) reports redness and swelling Medication List - Last Reconciled 11/17/23 by Tim Mcdermott MD albuterol sulfate 90 mcg/actuation (ProAir HFA) 2 puffs inhalation Q4-6H PRN aspirin 81 mg PO DAILY buprenorphine-naloxone 8-2 mg (Suboxone) 10 mg sublingual BID cetirizine 10 mg PO DAILY clonidine HCl 0.1 mg PO BID hydrochlorothiazide 12.5 mg PO DAILY metoprolol succinate ER (Toprol XL) 25 mg PO DAILY naloxone 4 mg/actuation (Narcan) 0 sprays intranasal prednisone 40 mg (2 x 20 mg) PO DAILY 5 days [facility] Medical History Left against medical advice Angioedema History of fatty infiltration of liver History of alcohol dependence History of heroin use Chronic knee pain Chronic back pain History of seizure History of panic disorder History of opioid abuse Depression HTN (hypertension) History of left bundle branch block (LBBB) Migraine Anxiety Asthma Surgical History Hx of exploratory laparotomy Hx of colonoscopy Family History Mother Heart disease Arthritis HTN (hypertension) Social History Household Members: None Housing: House Do you presently have visiting nurse or other home services: No Alcohol intake: current Alcohol intake frequency: holidays/special occasions only Patient Tobacco Use Status: Former Tobacco user Years Smoked: 10 +/- Substance Use Type: Inhalants service: No Current occupational status: unemployed Physical Exam Const Other: Well-nourished well-developed very friendly female awake alert and oriented x3 in no acute distress Extrem Other: Bilateral lower extremity examination shows good capillary refill, no skin lesions noted, normal sensation light touch Left knee examination shows a minimal effusion, palpable crepitus with range of motion, pain with range of motion, no instability Office Procedures Joint Injection/Aspiration Joint Injection/Aspiration Primary Site: left knee Prep: site was prepped using aseptic technique Injected: 40 mg of, DepoMedrol and 1% plain lidocaine Procedure: The patient tolerated the procedure well Coding 75712 - Large joint Procedure code (CPT) selection complete Assessment & Plan Assessment & Plan (1) Left knee pain: Code(s): M25.562 - Pain in left knee Category: Medical Plan Ms. Arteaga presents with left knee pain due to degenerative joint disease. I had a lengthy discussion with the patient regarding the treatment options. She wishes to hold off on surgery for as long as possible. I agree with this plan. The risks and benefits of a left knee cortisone injection were discussed at length with the patient. The patient wished to proceed. She tolerated the injection well. She will continue with her activity modifications. She will follow up with me on an as-needed basis should her symptoms not plateau at an unacceptable level over the next few months. Feel free to call me at any time should questions regarding her orthopedic management arise. I spent 20 minutes in reviewing the patient's records and imaging studies, seeing the patient and documenting in the medical record. Orders: Orders AMB Joint Injection/Aspiration 11/17/23 M25.562 - Pain in left knee XR knee LT 3V 11/17/23 M25.562 - Pain in left knee Coding Level of Care Code Est Pt Level 3 (96047) Diagnoses Left knee pain M25.562 CPT Codes Coding - 48597 Large joint: 40226 - Large joint ([id number])
== END 2023-11-17 11:07 | disposition home or self-care (01) ==
PROVIDERS: PCP Nurse Practitioner Primary Care; Visit Provider Orthopaedic Surgery
DX: M25.562 Pain in left knee (principal)
CPT/HCPCS: 20610; 99213

== ENCOUNTER 2023-11-24 17:13 | Outpatient (REF) | payer MEDICAID, SELFPAY ==
[2023-11-25 13:21] LABS: H Pylori Breath Test Negative (Negative)
== END 2023-11-24 17:14 | disposition home or self-care (01) ==
LOC: HO.HHCLNP 17:13
PROVIDERS: Visit Provider Nurse Practitioner Primary Care
DX: R10.13 Epigastric pain (principal)
CPT/HCPCS: 83013

== ENCOUNTER 2023-11-25 23:41 | Emergency (ER) | payer MEDICAID, SELFPAY ==
--- NOTE | 2023-11-25 | ECG_ITS ---
Test Reason : CHEST PAIN Blood Pressure : / mmHG Vent. Rate : 068 BPM Atrial Rate : 068 BPM P-R Int : 132 ms QRS Dur : 094 ms QT Int : 396 ms P-R-T Axes : 016 015 035 degrees QTc Int : 421 ms Normal sinus rhythm Normal ECG When compared with ECG of 09-NOV-2023 19:07, No significant change was found Referred By: Generic ED Physician Electronically Signed By:LOUISE GONZALEZ
--- NOTE | ~2023-11-25 | XR_ITS ---
EXAMINATION: XR CHEST CLINICAL INFORMATION: Chest pain, shortness of breath and cough COMPARISON: Chest radiograph 11/09/2023, CT chest 09/04/2021 TECHNIQUE: Frontal view of the chest was obtained. FINDINGS: No significant abnormality is noted involving the heart, lungs, mediastinum, bony thorax or soft tissues. Again noted is a prominent right epicardial fat pad with appearances similar to prior. XR/XR chest 1V IMPRESSION: No acute intrathoracic disease. Electronically signed by: Kelby Carter MD 11/26/2023 12:54 AM EDT
[2023-11-25 23:44] VITALS: BP 144/110; PULSE 80; O2SAT 94
[2023-11-25 23:48] VITALS: BP 103/52; PULSE 69; RESP 19; TEMP 36.6; O2SAT 98
[2023-11-25 23:52] VITALS: BMI 34.7
--- NOTE | 2023-11-26 00:02 | MHC.EDTECH ---
Pt was changed over into a hospital gown and placed on a desk monitor. EKG completed and handed over to a provider. Bloodwork sent to the lab for processing. Pt is on 2liters O2 nasal canula
[2023-11-26 00:06] LABS: Hematocrit 37.1 % (37.0-47.0); Hemoglobin 12.1 g/dl (12.0-16.0); Mean Corpuscular HGB Conc 32.6 g/dl (31.0-35.0); Mean Corpuscular Hemoglobin 28.6 pg (27.0-33.0); Mean Corpuscular Volume 87.7 fL (80.0-98.0); Mean Platelet Volume 8.7 fL (9.4-12.3); Platelet Count 325 X10*3/uL (160-400); Red Blood Count 4.23 X10*6/uL (4.20-5.50); Red Cell Distribution Width 13.4 % (11.0-16.0); White Blood Count 7.9 X10*3/uL (4.8-10.8)
[2023-11-26 00:19] LABS: Alanine Aminotransferase 60 U/L (0-31); Albumin Level 3.9 g/dL (3.5-5.0); Alkaline Phosphatase 151 U/L (39-117); Anion Gap 13 (12-20); Aspartate Amino Transferase 18 U/L (5-31); Bilirubin Total 0.4 mg/dL (0.0-1.0); Blood Urea Nitrogen 19 mg/dL (9-16); Calcium 9.1 mg/dL (8.4-10.2); Carbon Dioxide 26 mmol/L (22-29); Chloride 104 mmol/L (96-108); Estimated Glomerular Filt Rate > 60; Glucose Random 154 mg/dL (60-115); Potassium 3.6 mmol/L (3.3-5.1); Sodium 139 mmol/L (135-145); Total Protein 7.5 g/dL (6.5-8.0)
[2023-11-26 00:28] VITALS: PULSE 70; RESP 16; O2SAT 95
[2023-11-26 00:28] LABS: Troponin-I High Sensitivity < 2.7 ng/L (<3.5-17.0)
[2023-11-26 00:52] LABS: Influenza A PCR NEGATIVE (Negative); Influenza B PCR NEGATIVE (Negative); Resp Syncy Virus RNA Qual PCR NEGATIVE (Negative); SARS COV2 PCR INHOUSE NEGATIVE (Negative)
--- NOTE | 2023-11-26 02:24 | ED.CHESTPAIN ---
HPI - Chest Pain General Chief Complaint: Chest Pain Stated Complaint: CHEST PAIN/SOB Time Seen by Provider: 11/26/23 02:19 Source: patient and EMS Mode of arrival: EMS Limitations: no limitations History of Present Illness ED Provider: DR. Bolden HPI narrative: 58-year-old female came in for evaluation of chest pain and difficulty breathing started around 13:00 yesterday pain was localized to the mid chest went down to the left arm, lasted for 3 hours, pain was associated with shortness of breath, patient also stated that the pain get worse with deep breath, no chest injury or trauma. No recent travel, no lower extremity swelling or tenderness, no history of PE or DVT. Patient now has no chest pain, no difficulty breathing. Related Data Home Medications ?Medication ?Instructions ?Recorded ?Confirmed cetirizine 10 mg tablet 10 mg PO DAILY 08/28/21 04/23/23 clonidine HCl 0.1 mg tablet 0.1 mg PO BID 08/28/21 04/23/23 hydrochlorothiazide 12.5 mg tablet 12.5 mg PO DAILY 08/28/21 04/23/23 naloxone 4 mg/actuation nasal 0 spray intranasal 08/28/21 11/17/23 spray (Narcan) buprenorphine 8 mg-naloxone 2 mg 10 mg sublingual BID 10/15/22 04/23/23 sublingual film (Suboxone) Previous Rx's ?Medication ?Instructions ?Recorded albuterol sulfate 90 mcg/actuation 2 puff inhalation Q4-6H PRN 12/19/20 aerosol inhaler (ProAir HFA) Wheezing #8.5 grams metoprolol succinate 25 mg 25 mg PO DAILY #30 tabs 05/13/21 tablet,extended release 24 hr (Toprol XL) prednisone 20 mg tablet 40 mg (2 x 20 mg) PO DAILY 5 days 10/25/22 #10 tabs aspirin 81 mg tablet,delayed 81 mg PO DAILY #90 tabs 11/16/23 release Allergies Allergy/AdvReac Type Severity Reaction Status Date / Time lisinopril Allergy Severe Angioedema Verified 11/25/23 23:53 hydroxyzine [HYDROXYZINE] AdvReac Intermediate reports Verified 11/25/23 23:53 redness and swelling Review of Systems Review of Systems: All other systems are reviewed and are negative Constitutional: Reports as per HPI and Reports no additional constitutional complaints Eyes: Reports as per HPI and Reports no additional eye complaints Reports system reviewed and no additional complaints, except as documented Cardiovascular: Reports as per HPI and Reports no additional cardiovascular complaints Respiratory: Reports as per HPI and Reports no additional respiratory complaints Gastrointestinal: Reports as per HPI and Reports no additional gastrointestinal complaints Genitourinary: Reports no additional female genitourinary complaints Musculoskeletal: Reports no additional musculoskeletal complaints Skin/Breast: Reports system reviewed and no additional complaints, except as docu Psychiatric: Reports no additional psychiatric complaints Endocrine: Reports no additional endocrine complaints Hematologic/Lymphatic: Reports no additional hematologic/lymphatic complaints Allergic/Immunologic: Reports no additional allergic/immunologic complaints Reports system reviewed and no additional complaints, except as documented and Reports Abnormal speech present PMFSH Past Medical History Medical History Left against medical advice Angioedema History of fatty infiltration of liver History of alcohol dependence History of heroin use Chronic knee pain Chronic back pain History of seizure History of panic disorder History of opioid abuse Depression HTN (hypertension) History of left bundle branch block (LBBB) Migraine Anxiety Asthma Surgical History Hx of exploratory laparotomy Hx of colonoscopy Family History Family History Mother Heart disease Arthritis HTN (hypertension) Social History Social History Household Members: None Housing: House Do you presently have visiting nurse or other home services: No Alcohol intake: current Alcohol intake frequency: holidays/special occasions only Patient Tobacco Use Status: Former Tobacco user Years Smoked: 10 +/- Smoked in Last 30 Days: No Use of substances other than those prescribed or required for medical reasons: No Substance Use Type: Inhalants Advance Directives: No Advance Directives Information Provided: Yes Patient : No service: No Current occupational status: unemployed Physical Exam Vital Signs: Vital Signs: Last Vital Signs Temp 97.9 F 11/25/23 23:48 Pulse 70 11/26/23 00:28 Resp 16 11/26/23 00:28 BP 103/52 L 11/25/23 23:48 Pulse Ox 95 11/26/23 00:28 O2 Del Method Room Air 11/26/23 00:28 O2 Flow Rate 2 11/25/23 23:48 BMI result Body Mass Index 34.7 Vital signs have been reviewed and appear to be correct. Blood pressure elevated. Heart rate normal. Respiratory rate normal. Temperature normal. Oxygen saturation normal. Appearance: Alert. Oriented X3. No acute distress. Head: Normal external exam. Normocephalic. Atraumatic. No Naik signs noted. No raccoon eyes noted Eyes: PERRLA. EOMI. Conjunctiva and sclera normal. Eyelids normal. ENT: TM's Normal. Pharynx normal. Uvula midline. Moist mucous membranes. No trismus noted. No drooling noted. No muffled voice noted. Neck: Normal inspection. Neck supple. FROM. No adenopathy. Thyroid Normal. No meningeal signs. No neck mass noted. CVS: Normal heart rate and rhythm. Heart sound normal. No murmurs noted. Pulses normal throughout. Respiratory: No respiratory distress. Painless inspiration. Breath sounds normal. No wheezes/rales/rhonchi noted. Mild mid chest tenderness, no step-off, no deformity. No accessory muscle usage noted or decreased air movement noted. Abdomen: Soft and nontender. Bowel sounds normal in all 4 quadrants. No distention noted. No organomegaly noted. No visible injury noted. Back: No CVA tenderness. Full range of motion noted. Skin: Skin warm and dry. Normal skin color. Normal skin turgor. No rashes/lesions/lacerations noted. Extremities: No lower extremity edema. Extremities exhibit normal range of motion. Extremities nontender. Neuro: Oriented X 3. Cranial nerve exam: II-XII are grossly intact No motor deficit. No sensory deficit. Reflexes normal. Course Reevaluation(s) Reevaluation #1: No chest pain, vital signs stable, cardiac marker negative x2, nonischemic change in the EKG, negative D-dimer with low risk for PE/DVT. Mild reproducible tenderness to the chest wall Time: 04:00 Medical Decision Making Differential Diagnosis Differential Diagnoses: The differential diagnosis associated with the presentation includes (ACS, pulmonary embolism, pneumonia, pneumothorax, pleural effusion, electrolyte derangement, severe anemia, costochondritis, chest wall pain.) Admission/Observation Consideration of admission/observation: Escalation of care including admission/observation considered Lab Data MDM Lab Attestation statement: I reviewed the patient's lab results. 11/25/23 23:59 11/25/23 23:59 Labs: Lab Results 11/25/23 11/26/23 Range/Units 23:59 00:05 WBC 7.9 (4.8-10.8) X10*3/uL RBC 4.23 (4.20-5.50) X10*6/uL Hgb 12.1 (12.0-16.0) g/dl Hct 37.1 (37.0-47.0) % MCV 87.7 (80.0-98.0) fL MCH 28.6 (27.0-33.0) pg MCHC 32.6 (31.0-35.0) g/dl RDW 13.4 (11.0-16.0) % Plt Count 325 (160-400) X10*3/uL MPV 8.7 L (9.4-12.3) fL Absolute Nucleated RBC 0.000 (0.0-0.012) X10*3/uL Nucleated RBC % (auto) 0.0 (0.0-0.2) /100WBC Sodium 139 (135-145) mmol/L Potassium 3.6 (3.3-5.1) mmol/L Chloride 104 (96-108) mmol/L Carbon Dioxide 26 (22-29) mmol/L Anion Gap 13 (12-20) BUN 19 H (9-16) mg/dL Creatinine 0.81 (0.5-1.4) mg/dL Estim Creat Clear Calc 78.0 Estimated GFR > 60 Random Glucose 154 H (60-115) mg/dL Calcium 9.1 (8.4-10.2) mg/dL Total Bilirubin 0.4 (0.0-1.0) mg/dL AST 18 (5-31) U/L ALT 60 H (0-31) U/L Alkaline Phosphatase 151 H (39-117) U/L Troponin I High Sens < 2.7 (<3.5-17.0) ng/L Total Protein 7.5 (6.5-8.0) g/dL Albumin 3.9 (3.5-5.0) g/dL Influenza Type A (PCR) NEGATIVE (Negative) Influenza Type B (PCR) NEGATIVE (Negative) RSV RNA Qual (PCR) NEGATIVE (Negative) SARS-CoV-2 RNA (RT-PCR) NEGATIVE (Negative) Independent Interpretation I performed an independent interpretation of an: EKG (Rhythm at 68 beats per minutes, normal intervals, no ST-T changes, no change from previous EKG.) and Plain X-Ray (Chest: No acute intrathoracic pathology) Radiology Impression Discussion of test interpretation with radiology: I have reviewed the radiologist's reading. Discharge Plan Discharge Clinical Impression: Chest wall pain, Atypical chest pain Patient Disposition: Home, Self-Care Instructions: Chest Pain (ED) Prescriptions: No Action aspirin 81 mg tablet,delayed release (DR/EC) 81 mg PO DAILY Qty: 90 3RF metoprolol succinate [Toprol XL] 25 mg tablet extended release 24 hr 25 mg PO DAILY Qty: 30 1RF albuterol sulfate [ProAir HFA] 90 mcg/actuation HFA aerosol inhaler 2 puff inhalation Q4-6H PRN (Reason: Wheezing) Qty: 8.5 0RF prednisone 20 mg tablet 40 mg PO DAILY 5 Days Qty: 10 0RF hydrochlorothiazide 12.5 mg tablet 12.5 mg PO DAILY cetirizine 10 mg tablet 10 mg PO DAILY clonidine HCl 0.1 mg tablet 0.1 mg PO BID naloxone [Narcan] 4 mg/actuation spray,non-aerosol 0 spray intranasal buprenorphine-naloxone [Suboxone] 8-2 mg film 10 mg sublingual BID Referrals: [facility] [Primary Care Provider] - Print Language: Divehi
[2023-11-26 03:08] VITALS: BP 117/60; PULSE 66; RESP 13; TEMP 36.6; O2SAT 96
[2023-11-26 03:11] LABS: D Dimer High Sensitivity < 150 NG/ML
[2023-11-26 03:22] LABS: Troponin-I High Sensitivity < 2.7 ng/L (<3.5-17.0)
[2023-11-26 04:43] VITALS: BP 130/65; PULSE 73; RESP 16; TEMP 36.7; O2SAT 97
[2023-11-26 04:50] VITALS: BP 130/65; PULSE 73; RESP 16; TEMP 36.7; O2SAT 97
== END 2023-11-26 04:51 | disposition home or self-care (01) ==
PROVIDERS: Emergency Provider Emergency Medicine
DX: R07.89 Other chest pain (principal); R06.02 Shortness of breath; Z03.818 Encounter for observation for suspected exposure to other biological agents ruled out; I10 Essential (primary) hypertension; J45.909 Unspecified asthma, uncomplicated; F11.20 Opioid dependence, uncomplicated; Z79.899 Other long term (current) drug therapy; Z79.82 Long term (current) use of aspirin
CPT/HCPCS: 0241U; 36415; 71045; 80053; 84484; 85027; 85379; 93005; 99283; 99285

== ENCOUNTER 2023-12-22 10:50 | Outpatient (AMB) | payer MEDICAID, SELFPAY ==
--- NOTE | 2023-12-22 11:03 | A.OFFVIS_ITS ---
Intake Visit Reasons: Bilateral knee pains Intake Note: Gaby is a 58 year old female who presents with complaints of progressively worsening bilateral knee pains. She describes her pains as sharp in nature. She has undergone knee arthroscopic surgery in the past. She got only temporary relief from that surgery. She has also had multiple cortisone injections in the past. The most recent injections seem to worsen her pain. She has not had a viscosupplementation injection. She has failed the last 3 months of conservative treatment which includes a home exercise program, Tylenol, anti- inflammatory medicines and topical creams. At this point her bilateral knee pains are interfering with her activities of daily living and her ability to sleep well through the night. Allergies lisinopril Allergy (Severe, Verified 12/22/23 11:10) Angioedema hydroxyzine [HYDROXYZINE] Adverse Reaction (Intermediate, Verified 12/22/23 11:10) reports redness and swelling Medication List - Last Reconciled 12/22/23 by Tim Mcdermott MD albuterol sulfate 90 mcg/actuation (ProAir HFA) 2 puffs inhalation Q4-6H PRN aspirin 81 mg PO DAILY buprenorphine-naloxone 8-2 mg (Suboxone) 10 mg sublingual BID cetirizine 10 mg PO DAILY clonidine HCl 0.1 mg PO BID hydrochlorothiazide 12.5 mg PO DAILY metoprolol succinate ER (Toprol XL) 25 mg PO DAILY naloxone 4 mg/actuation (Narcan) 0 sprays intranasal prednisone 40 mg (2 x 20 mg) PO DAILY 5 days [facility] S[facility] TO [facility] Medical History Left against medical advice Angioedema History of fatty infiltration of liver History of alcohol dependence History of heroin use Chronic knee pain Chronic back pain History of seizure History of panic disorder History of opioid abuse Depression HTN (hypertension) History of left bundle branch block (LBBB) Migraine Anxiety Asthma Surgical History Hx of exploratory laparotomy Hx of colonoscopy Family History Mother Heart disease Arthritis HTN (hypertension) Social History Household Members: None Housing: House Do you presently have visiting nurse or other home services: No Alcohol intake: current Alcohol intake frequency: holidays/special occasions only Patient Tobacco Use Status: Former Tobacco user Years Smoked: 10 +/- Substance Use Type: Inhalants service: No Current occupational status: unemployed Physical Exam Const Other: Well-nourished well-developed very friendly female awake alert and oriented x3 in no acute distress Extrem Other: Bilateral lower extremity examination shows good capillary refill, no skin lesions noted, normal sensation light touch Bilateral knee examination shows minimal effusions, palpable crepitus with range of motion, pain with range of motion, range of motion from -3 degrees to 115 degrees, no instability Results Reviewed Results Reviewed: Standing full weight-bearing x-rays of the patient's bilateral knee show joint space narrowing, subchondral sclerosis, no acute bony abnormalities Assessment & Plan Assessment & Plan (1) Osteoarthritis of left knee: Code(s): M17.12 - Unilateral primary osteoarthritis, left knee Category: Medical (2) Osteoarthritis of right knee: Code(s): M17.11 - Unilateral primary osteoarthritis, right knee Category: Medical Plan Ms. Arteaga presents with progressively worsening bilateral knee pains due to osteoarthritis. I had a lengthy discussion with the patient regarding the treatment options. She has not gotten good relief from cortisone injections in the past. She has failed the last 3 months of conservative treatment. Thus, I will see whether or not the patient's insurance company will cover a visco supplementation injection, such as Durolane, for both of her knees. I will see her back once the injections are available. I spent 20 minutes in reviewing the patient's records and imaging studies, seeing the patient and documenting in the medical record. Coding Level of Care Code Est Pt Level 3 (35702) Complex EM visit Add On G2211 Diagnoses Osteoarthritis of left knee M17.12 Osteoarthritis of right knee M17.11
== END 2023-12-22 11:42 | disposition home or self-care (01) ==
PROVIDERS: Visit Provider Orthopaedic Surgery
DX: M17.0 Bilateral primary osteoarthritis of knee (principal)
CPT/HCPCS: 99213

== ENCOUNTER → 2023-12-22 10:50 | Outpatient (BNVA) | payer MEDICAID, SELFPAY | PROVIDERS: Visit Provider Orthopaedic Surgery | DX: M17.0 Bilateral primary osteoarthritis of knee (principal) | CPT/HCPCS: 99212 ==

== ENCOUNTER 2024-01-13 11:43 | Outpatient (AMB) | payer MEDICAID, SELFPAY ==
--- NOTE | 2024-01-13 11:51 | A.OFFVIS_ITS ---
Intake Visit Reasons: Bilateral knee pains Intake Note: Gaby is a 58-year-old female who presents with complaints of progressively worsening bilateral knee pains. The patient describes her pains as sharp in nature. She has had cortisone injections in the past which gave her minimal relief. She has also done physical therapy exercises which aggravated her pain. She has tried Tylenol and anti-inflammatory medicines which gave her minimal relief. Allergies lisinopril Allergy (Severe, Verified 01/13/24 11:56) Angioedema hydroxyzine [HYDROXYZINE] Adverse Reaction (Intermediate, Verified 01/13/24 11:56) reports redness and swelling Medication List - Last Reconciled 01/13/24 by Tim Mcdermott MD albuterol sulfate 90 mcg/actuation (ProAir HFA) 2 puffs inhalation Q4-6H PRN aspirin 81 mg PO DAILY buprenorphine-naloxone 8-2 mg (Suboxone) 10 mg sublingual BID cetirizine 10 mg PO DAILY clonidine HCl 0.1 mg PO BID hydrochlorothiazide 12.5 mg PO DAILY metoprolol succinate ER (Toprol XL) 25 mg PO DAILY naloxone 4 mg/actuation (Narcan) 0 sprays intranasal prednisone 40 mg (2 x 20 mg) PO DAILY 5 days [facility] Medical History Left against medical advice Angioedema History of fatty infiltration of liver History of alcohol dependence History of heroin use Chronic knee pain Chronic back pain History of seizure History of panic disorder History of opioid abuse Depression HTN (hypertension) History of left bundle branch block (LBBB) Migraine Anxiety Asthma Surgical History Hx of exploratory laparotomy Hx of colonoscopy Family History Mother Heart disease Arthritis HTN (hypertension) Social History Household Members: None Housing: House Do you presently have visiting nurse or other home services: No Alcohol intake: current Alcohol intake frequency: holidays/special occasions only Patient Tobacco Use Status: Former Tobacco user Years Smoked: 10 +/- Substance Use Type: Inhalants service: No Current occupational status: unemployed Physical Exam Const Other: Well-nourished well-developed very friendly female awake alert and oriented x3 in no acute distress Extrem Other: Bilateral lower extremity examination shows good capillary refill, no skin lesions noted, normal sensation light touch Bilateral knee examination shows minimal effusions, palpable crepitus with range of motion, pain with range of motion, no instability Office Procedures Joint Injection/Aspiration Joint Injection/Aspiration Primary Site: left knee Prep: site was prepped using aseptic technique Injected: 20 mg of (Euflexxa viscosupplementation ) and 1% plain lidocaine Procedure: The patient tolerated the procedure well Coding - Large joint Procedure code (CPT) selection complete Joint Injection/Aspiration Joint Injection/Aspiration Primary Site: right knee Prep: site was prepped using aseptic technique Injected: 20 mg of (Euflexxa viscosupplementation) and 1% plain lidocaine Procedure: The patient tolerated the procedure well Coding - Large joint Procedure code (CPT) selection complete Results Reviewed Results Reviewed: X-rays of the patient's bilateral knees taken previously show joint space narrowing, subchondral sclerosis, no acute bony abnormalities Assessment & Plan Assessment & Plan (1) Osteoarthritis of left knee: Code(s): M17.12 - Unilateral primary osteoarthritis, left knee Category: Medical (2) Osteoarthritis of right knee: Code(s): M17.11 - Unilateral primary osteoarthritis, right knee Category: Medical Plan Gaby presents with bilateral knee pains due to osteoarthritis. I had a lengthy discussion with the patient regarding the treatment options. The risks and benefits of bilateral knee Euflexxa viscosupplementation injections were discussed at length with the patient. The patient wished to proceed. She tolerated the injections well. She will continue with her home exercise program. She will follow up next week as scheduled. I spent 21 minutes in reviewing the patient's records and imaging studies, seeing the patient and documenting in the medical record. Orders: Orders AMB Joint Injection/Aspiration Today M17.12 - Unilateral primary osteoarthritis, left knee AMB Joint Injection/Aspiration Today M17.11 - Unilateral primary osteoarthritis, right knee Coding Level of Care Code Est Pt Level 3 (28568) Complex EM visit Add On G2211 Diagnoses Osteoarthritis of left knee M17.12 Osteoarthritis of right knee M17.11 CPT Codes Coding - 81066 Large joint: 59029 - Large joint ([id number]) Coding - 71472 Large joint: 59738 - Large joint ([id number])
== END 2024-01-13 12:13 | disposition home or self-care (01) ==
PROVIDERS: Visit Provider Orthopaedic Surgery
DX: M17.0 Bilateral primary osteoarthritis of knee (principal)
CPT/HCPCS: 20610; 99213

== ENCOUNTER → 2024-01-13 11:43 | Outpatient (BNVA) | payer MEDICAID, SELFPAY | PROVIDERS: Visit Provider Orthopaedic Surgery | DX: M17.0 Bilateral primary osteoarthritis of knee (principal) | CPT/HCPCS: 20610; 99212; J2003; J7323 ==

== ENCOUNTER 2024-01-20 11:40 | Outpatient (AMB) | payer MEDICAID, SELFPAY ==
--- NOTE | 2024-01-20 11:46 | MHC.OFFVIS ---
Intake Visit Reasons: B/L knee Euflexxa Gel Inj #2 Intake Note: Gaby is a 58 year old female who presents today for her 2nd Euflexxa gel injections for both of her knees. She states that she got mild relief from the injections that she was given at her last visit. She denies any fevers or chills. Allergies lisinopril Allergy (Severe, Verified 01/20/24 11:47) Angioedema hydroxyzine [HYDROXYZINE] Adverse Reaction (Intermediate, Verified 01/20/24 11:47) reports redness and swelling Medication List - Last Reconciled 01/20/24 by Tim Mcdermott MD albuterol sulfate 90 mcg/actuation (ProAir HFA) 2 puffs inhalation Q4-6H PRN aspirin 81 mg PO DAILY buprenorphine-naloxone 8-2 mg (Suboxone) 10 mg sublingual BID cetirizine 10 mg PO DAILY clonidine HCl 0.1 mg PO BID hydrochlorothiazide 12.5 mg PO DAILY metoprolol succinate ER (Toprol XL) 25 mg PO DAILY naloxone 4 mg/actuation (Narcan) 0 sprays intranasal prednisone 40 mg (2 x 20 mg) PO DAILY 5 days [facility] Medical History Left against medical advice Angioedema History of fatty infiltration of liver History of alcohol dependence History of heroin use Chronic knee pain Chronic back pain History of seizure History of panic disorder History of opioid abuse Depression HTN (hypertension) History of left bundle branch block (LBBB) Migraine Anxiety Asthma Surgical History Hx of exploratory laparotomy Hx of colonoscopy Family History Mother Heart disease Arthritis HTN (hypertension) Social History Household Members: None Housing: House Do you presently have visiting nurse or other home services: No Alcohol intake: current Alcohol intake frequency: holidays/special occasions only Patient Tobacco Use Status: Former Tobacco user Years Smoked: 10 +/- Substance Use Type: Inhalants service: No Current occupational status: unemployed Physical Exam Extrem Other: Bilateral knee examination shows minimal effusions, palpable crepitus with range of motion, pain with range of motion, no instability Office Procedures AMB Joint Injection/Aspiration Joint Injection/Aspiration Primary Site: left knee Prep: site was prepped using aseptic technique Injected: 20 mg of (Euflexxa viscosupplementation) and 1% plain lidocaine Procedure: The patient tolerated the procedure well Coding - Large joint Procedure code (CPT) selection complete AMB Joint Injection/Aspiration Joint Injection/Aspiration Primary Site: right knee Prep: site was prepped using aseptic technique Injected: 20 mg of (Euflexxa viscosupplementation) and 1% plain lidocaine Procedure: The patient tolerated the procedure well Coding - Large joint Procedure code (CPT) selection complete Results Reviewed Results Reviewed: X-rays of the patient's bilateral knees taken previously show joint space narrowing, subchondral sclerosis, no acute bony abnormalities Assessment & Plan Assessment & Plan (1) Osteoarthritis of left knee: Code(s): M17.12 - Unilateral primary osteoarthritis, left knee Category: Medical (2) Osteoarthritis of right knee: Code(s): M17.11 - Unilateral primary osteoarthritis, right knee Category: Medical Plan Gaby presents with bilateral knee pains due to degenerative joint disease. The risks and benefits of her 2nd Euflexxa injections were discussed at length with the patient. The patient wished to proceed. She tolerated the bilateral knee injections well. She will continue with her home exercise program. She will follow up next week as scheduled. Orders: Orders AMB Joint Injection/Aspiration Today M17.11 - Unilateral primary osteoarthritis, right knee AMB Joint Injection/Aspiration Today M17.12 - Unilateral primary osteoarthritis, left knee Coding Level of Care Code Procedure Only Diagnoses Osteoarthritis of left knee M17.12 Osteoarthritis of right knee M17.11 CPT Codes Coding - 70418 Large joint: 32539 - Large joint ([id number]) Coding - 39820 Large joint: 54768 - Large joint ([id number])
== END 2024-01-20 12:04 | disposition home or self-care (01) ==
LOC: HO.HOS 11:40
PROVIDERS: Visit Provider Orthopaedic Surgery
DX: M17.0 Bilateral primary osteoarthritis of knee (principal)
CPT/HCPCS: 20610

== ENCOUNTER → 2024-01-20 11:40 | Outpatient (BNVA) | payer MEDICAID, SELFPAY | PROVIDERS: Visit Provider Orthopaedic Surgery | DX: M17.0 Bilateral primary osteoarthritis of knee (principal) | CPT/HCPCS: 20610; J2003; J7323 ==

== ENCOUNTER 2024-01-27 11:02 | Outpatient (AMB) | payer MEDICAID, SELFPAY ==
--- NOTE | 2024-01-27 11:07 | A.OFFVIS_ITS ---
Intake Visit Reasons: B/L knee Euflexxa Gel Inj #3 Intake Note: Gaby is a 58 year old female who presents today for her 3rd bilateral knee Euflexxa injections. She states that she has gotten mild relief from the 1st 2 injections. She continues with her home exercise program. Allergies lisinopril Allergy (Severe, Verified 01/27/24 11:07) Angioedema hydroxyzine [HYDROXYZINE] Adverse Reaction (Intermediate, Verified 01/27/24 11:07) reports redness and swelling Medication List - Last Reconciled 01/27/24 by Tim Mcdermott MD albuterol sulfate 90 mcg/actuation (ProAir HFA) 2 puffs inhalation Q4-6H PRN aspirin 81 mg PO DAILY buprenorphine-naloxone 8-2 mg (Suboxone) 10 mg sublingual BID cetirizine 10 mg PO DAILY clonidine HCl 0.1 mg PO BID hydrochlorothiazide 12.5 mg PO DAILY metoprolol succinate ER (Toprol XL) 25 mg PO DAILY naloxone 4 mg/actuation (Narcan) 0 sprays intranasal prednisone 40 mg (2 x 20 mg) PO DAILY 5 days [facility] Medical History Left against medical advice Angioedema History of fatty infiltration of liver History of alcohol dependence History of heroin use Chronic knee pain Chronic back pain History of seizure History of panic disorder History of opioid abuse Depression HTN (hypertension) History of left bundle branch block (LBBB) Migraine Anxiety Asthma Surgical History Hx of exploratory laparotomy Hx of colonoscopy Family History Mother Heart disease Arthritis HTN (hypertension) Social History Household Members: None Housing: House Do you presently have visiting nurse or other home services: No Alcohol intake: current Alcohol intake frequency: holidays/special occasions only Patient Tobacco Use Status: Former Tobacco user Years Smoked: 10 +/- Substance Use Type: Inhalants service: No Current occupational status: unemployed Physical Exam Extrem Other: Bilateral knee examination shows minimal effusions, palpable crepitus with range of motion, pain with range of motion, no instability Office Procedures AMB Joint Injection/Aspiration Joint Injection/Aspiration Primary Site: right knee Prep: site was prepped using aseptic technique Injected: 20 mg of (Euflexxa viscosupplementation) Procedure: The patient tolerated the procedure well Coding - Large joint Procedure code (CPT) selection complete AMB Joint Injection/Aspiration Joint Injection/Aspiration Primary Site: left knee Prep: site was prepped using aseptic technique Injected: 20 mg of (Euflexxa viscosupplementation) and 1% plain lidocaine Procedure: The patient tolerated the procedure well Coding - Large joint Procedure code (CPT) selection complete Results Reviewed Results Reviewed: X-rays of the patient's bilateral knees taken previously show joint space narrowing, subchondral sclerosis, no acute bony abnormalities Assessment & Plan Assessment & Plan (1) Osteoarthritis of left knee: Code(s): M17.12 - Unilateral primary osteoarthritis, left knee Category: Medical (2) Osteoarthritis of right knee: Code(s): M17.11 - Unilateral primary osteoarthritis, right knee Category: Medical Plan Gaby presents with bilateral knee pains due to osteoarthritis. The risks and benefits of a 3rd set of Euflexxa injections were discussed at length with the patient. The patient wished to proceed. She tolerated the injections well. She will continue with her home exercise program. She will contact me prior to her follow-up appointment in 3 months should any questions or concerns arise. Feel free to call me at any time should questions regarding her orthopedic management arise. Orders: Orders AMB Joint Injection/Aspiration Today M17.12 - Unilateral primary osteoarthritis, left knee AMB Joint Injection/Aspiration Today M17.11 - Unilateral primary osteoarthritis, right knee Coding Level of Care Code Procedure Only Diagnoses Osteoarthritis of left knee M17.12 Osteoarthritis of right knee M17.11 CPT Codes Coding - 88570 Large joint: 54872 - Large joint ([id number]) Coding - 37039 Large joint: 41891 - Large joint ([id number])
== END 2024-01-27 11:22 | disposition home or self-care (01) ==
LOC: HO.HOS 11:03
PROVIDERS: Visit Provider Orthopaedic Surgery
DX: M17.0 Bilateral primary osteoarthritis of knee (principal)
CPT/HCPCS: 20610

== ENCOUNTER → 2024-01-27 11:02 | Outpatient (BNVA) | payer MEDICAID, SELFPAY | PROVIDERS: Visit Provider Orthopaedic Surgery | DX: M17.0 Bilateral primary osteoarthritis of knee (principal) | CPT/HCPCS: 20610; J2003; J7323 ==

== ENCOUNTER 2024-05-11 01:06 | Emergency (ER) | payer MEDICAID, SELFPAY ==
--- NOTE | ~2024-05-11 | XR_ITS ---
CLINICAL HISTORY: cp 1 view chest x-ray Comparison: CR/MO/SR - XR CHEST 1V - 11/26/23 00:23 EDT Findings: The lungs are clear. Cardiomediastinal silhouette is stable with prominent right epicardial fat. No acute fracture. IMPRESSION: 1. No acute findings. This document has been electronically signed by: Donna Owens MD on 05/11/2024 04:46:48
[2024-05-11 01:12] VITALS: BP 130/76; PULSE 75; PULSE 77; RESP 14; TEMP 36.8; O2SAT 95; O2SAT 98; BMI 41.8
--- NOTE | 2024-05-11 01:15 | ECG_ITS ---
Test Reason : CHEST PAIN Blood Pressure : */* mmHG Vent. Rate : 76 BPM Atrial Rate : 76 BPM P-R Int : 150 ms QRS Dur : 150 ms QT Int : 432 ms P-R-T Axes : 50 -26 101 degrees QTcB Int : 486 ms Normal sinus rhythm Left bundle branch block Abnormal ECG When compared with ECG of 25-Nov-2023 23:48, Left bundle branch block is now Present Referred By: Generic ED Physician Electronically Signed By: DARIUS MUSTAFA
[2024-05-11 01:35] LABS: MANUAL DIFF FLAG NO
[2024-05-11 01:36] LABS: Basophils Absolute Auto 0.1 X10*3/uL (0.0-0.2); Basophils Percent Auto 0.7 % (0-2); Eosinophils Absolute Auto 0.7 X10*3/uL (0.0-0.4); Eosinophils Percent Auto 9.8 % (0-4); Hematocrit 34.8 % (37.0-47.0); Hemoglobin 11.4 g/dl (12.0-16.0); Imm Gran Abs Auto 0.02 X10*3/uL (0.00-0.03); Imm Gran Pct Auto 0.3 % (0.0-0.4); Lymphocytes Absolute Auto 1.9 X10*3/uL (1.2-4.9); Lymphocytes Percent Auto 25.7 % (20-40); Mean Corpuscular HGB Conc 32.8 g/dl (31.0-35.0); Mean Corpuscular Hemoglobin 27.9 pg (27.0-33.0); Mean Corpuscular Volume 85.3 fL (80.0-98.0); Mean Platelet Volume 8.9 fL (9.4-12.3); Monocytes Absolute Auto 0.7 X10*3/uL (0.1-1.2); Monocytes Percent Auto 9.6 % (2-11); Neutrophils Percent Auto 53.9 % (45-73); Platelet Count 286 X10*3/uL (160-400); Red Blood Count 4.08 X10*6/uL (4.20-5.50); Red Cell Distribution Width 12.4 % (11.0-16.0); White Blood Count 7.3 X10*3/uL (4.8-10.8)
[2024-05-11 01:41] LABS: IDNOW Serial# 58CA691E; Strep A Nucleic Acid Negative (Negative)
--- NOTE | 2024-05-11 01:50 | ED_ITS ---
HPI - Chest Pain General Chief Complaint: Chest Pain Stated Complaint: CP & throat pain, pain radiating to Rarm& L chest Time Seen by Provider: 05/11/24 01:42 Source: patient and EMS Mode of arrival: EMS Limitations: no limitations History of Present Illness ED Provider: DR. Bolden HPI narrative: 58-year-old female brought in by EMS for evaluation of chest pain that started at 22:30 last night, patient was getting ready to go to bed started to have burning sensation in the throat followed by mid chest pain that radiated to the right arm, pain lasted for 30 minutes then pain is gone now, no fever, no chills, no sick contacts. No recent travel, no lower extremity swelling or tenderness, no recent prolonged immobilization. Related Data Home Medications ?Medication ?Instructions ?Recorded ?Confirmed cetirizine 10 mg tablet 10 mg PO DAILY 08/28/21 01/27/24 clonidine HCl 0.1 mg tablet 0.1 mg PO BID 08/28/21 01/27/24 hydrochlorothiazide 12.5 mg tablet 12.5 mg PO DAILY 08/28/21 01/27/24 naloxone 4 mg/actuation nasal 0 spray intranasal 08/28/21 01/27/24 spray (Narcan) buprenorphine 8 mg-naloxone 2 mg 10 mg sublingual BID 10/15/22 01/27/24 sublingual film (Suboxone) Previous Rx's ?Medication ?Instructions ?Recorded albuterol sulfate 90 mcg/actuation 2 puff inhalation Q4-6H PRN 12/19/20 aerosol inhaler (ProAir HFA) Wheezing #8.5 grams metoprolol succinate 25 mg 25 mg PO DAILY #30 tabs 05/13/21 tablet,extended release 24 hr (Toprol XL) prednisone 20 mg tablet 40 mg (2 x 20 mg) PO DAILY 5 days 10/25/22 #10 tabs aspirin 81 mg tablet,delayed 81 mg PO DAILY #90 tabs 11/16/23 release Allergies Allergy/AdvReac Type Severity Reaction Status Date / Time lisinopril Allergy Severe Angioedema Verified 05/11/24 01:15 hydroxyzine [HYDROXYZINE] AdvReac Intermediate reports Verified 05/11/24 01:15 redness and swelling Review of Systems 2 Review of Systems: All other systems are reviewed and are negative Constitutional: Reports as per HPI and Reports no additional constitutional complaints Eyes: Reports as per HPI and Reports no additional eye complaints Reports system reviewed and no additional complaints, except as documented Cardiovascular: Reports as per HPI and Reports no additional cardiovascular complaints Respiratory: Reports as per HPI and Reports no additional respiratory complaints Gastrointestinal: Reports as per HPI and Reports no additional gastrointestinal complaints Genitourinary: Reports no additional female genitourinary complaints Musculoskeletal: Reports no additional musculoskeletal complaints Skin/Breast: Reports system reviewed and no additional complaints, except as docu Psychiatric: Reports no additional psychiatric complaints Endocrine: Reports no additional endocrine complaints Hematologic/Lymphatic: Reports no additional hematologic/lymphatic complaints Allergic/Immunologic: Reports no additional allergic/immunologic complaints Reports system reviewed and no additional complaints, except as documented and Reports Abnormal speech present [facility] Past Medical History Medical History Left against medical advice Angioedema History of fatty infiltration of liver History of alcohol dependence History of heroin use Chronic knee pain Chronic back pain History of seizure History of panic disorder History of opioid abuse Depression HTN (hypertension) History of left bundle branch block (LBBB) Migraine Anxiety Asthma Surgical History Hx of exploratory laparotomy Hx of colonoscopy Family History Family History Mother Heart disease Arthritis HTN (hypertension) Social History Social History Household Members: None Housing: House Do you presently have visiting nurse or other home services: No Alcohol intake: current Alcohol intake frequency: holidays/special occasions only Patient Tobacco Use Status: Former Tobacco user Years Smoked: 10 +/- Substance Use Type: Inhalants Advance Directives: No Advance Directives Information Provided: Yes Do you have a plan to hurt others: No Plan Patient : No service: No Current occupational status: unemployed Physical Exam 2 Vital Signs: Vital Signs: Last Vital Signs Temp 97.6 F 05/11/24 02:36 Pulse 81 05/11/24 02:36 Resp 14 05/11/24 02:36 BP 119/52 L 05/11/24 02:36 Pulse Ox 94 05/11/24 02:36 O2 Del Method Room Air 05/11/24 02:36 BMI result Body Mass Index 41.8 Vital signs have been reviewed and appear to be correct. Blood pressure elevated. Heart rate normal. Respiratory rate normal. Temperature normal. Oxygen saturation normal. Appearance: Alert. Oriented X3. No acute distress. Head: Normal external exam. Normocephalic. Atraumatic. No Naik signs noted. No raccoon eyes noted Eyes: PERRLA. EOMI. Conjunctiva and sclera normal. Eyelids normal. ENT: TM's Normal. Pharynx normal. Uvula midline. Moist mucous membranes. No trismus noted. No drooling noted. No muffled voice noted. Neck: Normal inspection. Neck supple. FROM. No adenopathy. Thyroid Normal. No meningeal signs. No neck mass noted. CVS: Normal heart rate and rhythm. Heart sound normal. No murmurs noted. Pulses normal throughout. Respiratory: No respiratory distress. Painless inspiration. Breath sounds normal. No wheezes/rales/rhonchi noted. reproducible tenderness over the sternum, no deformity, no step-off. No accessory muscle usage noted or decreased air movement noted. Abdomen: Soft and nontender. Bowel sounds normal in all 4 quadrants. No distention noted. No organomegaly noted. No visible injury noted. Back: No CVA tenderness. Full range of motion noted. Skin: Skin warm and dry. Normal skin color. Normal skin turgor. No rashes/lesions/lacerations noted. Extremities: No lower extremity edema. Extremities exhibit normal range of motion. Extremities nontender. Neuro: Oriented X 3. Cranial nerve exam: II-XII are grossly intact No motor deficit. No sensory deficit. Reflexes normal. Course Reevaluation(s) Reevaluation #1: Presented with chest pain that is resolved in the ED, physical exam reveals reproducible tenderness over the chest wall, ACS is unlikely with a negative cardiac markers x2 and unchanged EKG. Time: 05:30 Medical Decision Making Differential Diagnosis Differential Diagnoses: The differential diagnosis associated with the presentation includes ( ACS, ACS, pneumonia, pneumothorax, pleural effusion, chest wall pain, electrolyte derangement, severe anemia, viral upper respiratory infection.) Admission/Observation Consideration of admission/observation: Escalation of care including admission/observation considered Lab Data MDM Lab Attestation statement: I reviewed the patient's lab results. 05/11/24 01:28 05/11/24 01:28 Labs: Lab Results 05/11/24 Range/Units 01:28 WBC 7.3 (4.8-10.8) X10*3/uL RBC 4.08 L (4.20-5.50) X10*6/uL Hgb 11.4 L (12.0-16.0) g/dl Hct 34.8 L (37.0-47.0) % MCV 85.3 (80.0-98.0) fL MCH 27.9 (27.0-33.0) pg MCHC 32.8 (31.0-35.0) g/dl RDW 12.4 (11.0-16.0) % Plt Count 286 (160-400) X10*3/uL MPV 8.9 L (9.4-12.3) fL Immature Gran % (Auto) 0.3 (0.0-0.4) % Neut % (Auto) 53.9 (45-73) % Lymph % (Auto) 25.7 (20-40) % Ripley % (Auto) 9.6 (2-11) % Eos % (Auto) 9.8 H (0-4) % Baso % (Auto) 0.7 (0-2) % Lymph # (Auto) 1.9 (1.2-4.9) X10*3/uL Ripley # (Auto) 0.7 (0.1-1.2) X10*3/uL Eos # (Auto) 0.7 H (0.0-0.4) X10*3/uL Baso # (Auto) 0.1 (0.0-0.2) X10*3/uL Abs Immat Gran (auto) 0.02 (0.00-0.03) X10*3/uL Absolute Neuts (auto) 4.0 (2.0-8.3) x10*3/uL Absolute Nucleated RBC 0.000 (0.0-0.012) X10*3/uL Nucleated RBC % (auto) 0.0 (0.0-0.2) /100WBC Sodium 140 (135-145) mmol/L Potassium 3.3 (3.3-5.1) mmol/L Chloride 100 (96-108) mmol/L Carbon Dioxide 31 H (22-29) mmol/L Anion Gap 12 (12-20) BUN 19 H (9-16) mg/dL Creatinine 0.63 (0.5-1.4) mg/dL Estim Creat Clear Calc 111.3 Estimated GFR > 60 Random Glucose 127 H (60-115) mg/dL Calcium 9.2 (8.4-10.2) mg/dL Total Bilirubin 0.4 (0.0-1.0) mg/dL AST 24 (5-31) U/L ALT 23 (0-31) U/L Alkaline Phosphatase 134 H (39-117) U/L Troponin I High Sens < 2.7 (<3.5-17.0) ng/L Total Protein 7.6 (6.5-8.0) g/dL Albumin 3.7 (3.5-5.0) g/dL Influenza Type A (PCR) NEGATIVE (Negative) Influenza Type B (PCR) NEGATIVE (Negative) RSV RNA Qual (PCR) NEGATIVE (Negative) SARS-CoV-2 RNA (RT-PCR) NEGATIVE (Negative) S. pyogenes GrpA KELLI Negative (Negative) Independent Interpretation I performed an independent interpretation of an: EKG ( Normal sinus rhythm, LBBB unchanged from 11/11 and 08/12) and Plain X-Ray ( Chest: No acute intrathoracic pathology.) Radiology Impression Discussion of test interpretation with radiology: I have reviewed the radiologist's reading. Discharge Plan Discharge Clinical Impression: Anterior chest wall pain Patient Disposition: Home, Self-Care Instructions: Chest Wall Pain (ED) Prescriptions: No Action aspirin 81 mg tablet,delayed release (DR/EC) 81 mg PO DAILY Qty: 90 3RF metoprolol succinate [Toprol XL] 25 mg tablet extended release 24 hr 25 mg PO DAILY Qty: 30 1RF albuterol sulfate [ProAir HFA] 90 mcg/actuation HFA aerosol inhaler 2 puff inhalation Q4-6H PRN (Reason: Wheezing) Qty: 8.5 0RF prednisone 20 mg tablet 40 mg PO DAILY 5 Days Qty: 10 0RF hydrochlorothiazide 12.5 mg tablet 12.5 mg PO DAILY cetirizine 10 mg tablet 10 mg PO DAILY clonidine HCl 0.1 mg tablet 0.1 mg PO BID naloxone [Narcan] 4 mg/actuation spray,non-aerosol 0 spray intranasal buprenorphine-naloxone [Suboxone] 8-2 mg film 10 mg sublingual BID Referrals: Sherry Barker MD [Primary Care Provider] - Print Language: Malian
[2024-05-11 01:57] LABS: Alanine Aminotransferase 23 U/L (0-31); Albumin Level 3.7 g/dL (3.5-5.0); Anion Gap 12 (12-20); Aspartate Amino Transferase 24 U/L (5-31); Bilirubin Total 0.4 mg/dL (0.0-1.0); Blood Urea Nitrogen 19 mg/dL (9-16); Calcium 9.2 mg/dL (8.4-10.2); Carbon Dioxide 31 mmol/L (22-29); Chloride 100 mmol/L (96-108); Creatinine Clr Calc Pharmacy 111.3; Estimated Glomerular Filt Rate > 60; Glucose Random 127 mg/dL (60-115); Potassium 3.3 mmol/L (3.3-5.1); Sodium 140 mmol/L (135-145); Total Protein 7.6 g/dL (6.5-8.0)
[2024-05-11 01:59] LABS: Troponin-I High Sensitivity < 2.7 ng/L (<3.5-17.0)
[2024-05-11 02:13] LABS: Influenza A PCR NEGATIVE (Negative); Influenza B PCR NEGATIVE (Negative); Resp Syncy Virus RNA Qual PCR NEGATIVE (Negative); SARS COV2 PCR INHOUSE NEGATIVE (Negative)
[2024-05-11 02:16] LABS: Alkaline Phosphatase 134 U/L (39-117)
[2024-05-11 02:36] VITALS: BP 119/52; PULSE 81; RESP 14; TEMP 36.4; O2SAT 94
--- OUTSIDE RECORDS SUMMARY | 2024-05-11 02:43 | XMS_ITS | Encounter Summary ---
Author Organization [employer] Address [address] [place] [address] Care Team Providers Care Fish Cutter Name Role Phone Juani Sosa Primary Care Provider [phone] Encounter Details Date Type Department Care Team (Latest Contact Info) Description 04/18/2024 2:15 PM EST Telemedicine [facility] [address] [place], [place] [phone] Jacoby Donald MD [address] [place], [place] [phone] Uncomplicated opioid dependence (CMS/HCC) (Primary Dx) Social History Tobacco Use Types Packs/Day Years Used Date Smoking Tobacco: Former Cigarettes Q uit: 01/21/2022 Smokeless Tobacco: Never Alcohol Use Standard Drinks/Week Comments Never 0 (1 standard drink = 0.6 oz pur e alcohol) Depression Answer Date Recorded Patient Health Questionnaire-9 Score 9 10/06/2023 Patient Health Questionnaire-9 Score 9 10/06/2023 Last PHQ-9: Questionnaire Data Not on file 0 10/06/2023 Housing Stability Answer Date Recorded What is your housing situation today? I have kayden aguilar 04/08/[address] you li ve. Do you have problems with any of the following? Pests such as bugs, ants, or mice;Mold 04/08/2023 Food Insecurity Answer Date Recorded Within the past 12 months, y ou worried that your food would run out before you got money to buy more: Never True 04/01/2023 Within the past 12 months,th e food you bought just didn't last and you didn't have enough money to get more: Never True 12/2023 Transportation Answer Date Recorded In the past 12 months, has l ack of transportation kept you from medical appts, meetings, work or from getting things needed for daily living? Yes, it has kept me from medical appointments or getting medications. 01/02/2023 Utilities Answer Date Recorded In the past 12 months, has t he electric, gas, oil or water company threatened to shut off services in your home? No 01/05/2023 Depression Answer Date Recorded Patient Health Questionnaire-2 Score 2 10/06/2023 Comments Unknown Sex and Gender Information Value Date Recorded Sex Assigned at Female 01/20/2022 10:14 AM EDT Legal Sex Female 10:14 AM EDT Gender Identity Female 01/20/2022 10:14 AM EDT Sexual Orientation Straight 01/20/2022 10 :14 AM EDT documented as of this encounter Progress Notes * Jacoby Donald MD - 04/18/2024 2:15 PM EST Subjective Patient ID: Gaby Arteaga is a 58 y.o. female. HPI Patient on current Suboxone dose of 24/6 mg. Visit interval was increased to 2 week schedule on 03/28/2024. Patient has been in the program for 1 year, 9 months Induction date: 07/08/22. LFT's: pending Hep A status: pending (prev fully Iz'd) Hep B status: pending (prev fully Iz'd) Hep C status: pending HIV status: pending Covid Vaccine status: Psych provider: pending Therapist: Nilson MENDOZA reviewed by provider. [facility] States that [facility]opedic surgeon told her that she needs to be free of illicit substances for 1 year before he will schedule knee replacement surgery, which would be about 12/2024. Had 3rd knee injections done 02/01/2024, states minimal pain relief. States did not take any oxycodone recently; knee pain has slightly improved, possibly because she no longer needs to climb stairs to get to her apartment. Has rented friend's room in [place] from Feb to May 2024. Gaby applied for an apartment with housing location service on [address] [facility], Labs done 10/25/2023. No constipation. Quit smoking 01/2022 Has 3 sons, eldest is in psychiatric residential program, one lives in [place] and one in [place]. Has 2 daughters, one is disabled and lives with her grandmother in [place], and one lives in [place] and works at [employer] in [place]. Patient gave verbal consent to be seen in this manner. A complete assessment and plan is detailed in the note, all of which were conducted remotely using virtual technology. Patient identity was verbally confirmed with 2 identifiers at the start of the visit. [facility] Provider was located in the clinic during the visit. The following portions of the chart were reviewed this encounter and updated as appropriate: Review of Systems Constitutional: Negative for fever. Respiratory: Negative for shortness of breath. Cardiovascular: Negative for chest pain. Gastrointestinal: Negative for abdominal pain. Musculoskeletal: Positive for arthralgias and back pain. Skin: Negative for rash. Neurological: Negative for headaches. Objective Physical Exam Procedures Assessment/Plan Diagnoses and all orders for this visit: Uncomplicated opioid dependence ([facility]) Recovery support, harm reduction (including Narcan) and behavioral health attendance reviewed. Continue Suboxone 24/6 mg on 2 week schedule. documented in this encounter Plan of Treatment Upcoming Encounters Date Type Department Care Team (Late st Contact Info) Description 05/16/2024 2:45 PM EST Office Visit [address] [address] Jacoby Donald MD [address] [place] [id number] 05/23/2024 2:45 PM EST Clinical Support [address] [address] Triny Brody, SIRISHA [address] [place] [phone] 06/07/2024 1:45 PM EDT Procedure Visit [address] [address] Chelsey Mckenzie CNM [address] [place] [phone] 08/04/2024 11:00 AM EDT Office Visit [facility] [address] [place] [address] Juani Sosa ANP [address] [place] [address] documented as of this encounter Visit Diagnoses Diagnosis Uncomplicated opioid dependence (CMS/HCC)- Primary documented in this encounter Additional Health Concerns Assessment Noted Time PHQ-9 Depression Total Score: 9 10/06/19 11:29 AM EDT documented as of this encounter Care Teams Fish Cutter Relationship Specialty Start Date End Date Juani Sosa ANP [address] [place] [address] PCP - General Family Medicine 02/11/22 Lilian Varghese [employer] Supervisor 07/02/23 documented as of this encounter
--- OUTSIDE RECORDS SUMMARY | 2024-05-11 02:43 | XMS_ITS | Encounter Summary ---
Author Organization [employer] Address [address] [place] [address] [address] [place] [address] Care Team Providers Care Signals Officer Name Role Phone Juani Sosa Primary Care Provider Reason for Visit * Reason Comments OBAT Encounter Details Date Type Department Care Team (Latest Contact Info) Description 05/02/2024 1:15 PM EST Office Visit [facility] MEDICINE [address] [place], [place] [phone] Jacoby Donald MD [address] [place] [address] Uncomplicated opioid dependence (CMS/HCC) (Primary Dx) Social History Tobacco Use Types Packs/Day Years Used Date Smoking Tobacco: Former Cigarettes Q uit: 01/21/2022 Smokeless Tobacco: Never Alcohol Use Standard Drinks/Week Comments Never 0 (1 standard drink = 0.6 oz pur e alcohol) Alcohol Answer Date Recorded How often do you have a drink containing alcohol ? 1 05/02/2024 Average Number of Drinks Not on file 025 Frequency of Binge Drinking Not on file 04/23 Depression Answer Date Recorded Patient Health Questionnaire-9 Score 16 05/02/2024 Patient Health Questionnaire-9 Score 16 05/02/2024 Last PHQ-9: Questionnaire Data Not on file 0 05/02/2024 Housing Stability Answer Date Recorded What is your housing situation today? I do not have housing (Staying with others, in a hotel, in a long-term, living outside on the street, on a beach, in a car, or in a park 04/20/[address] you li ve. Do you have problems with any of the following? None of the above 04/20/2024 Food Insecurity Answer Date Recorded Within the past 12 months, y ou worried that your food would run out before you got money to buy more: Never True 04/20/2024 Within the past 12 months,th e food you bought just didn't last and you didn't have enough money to get more: Never True Transportation Answer Date Recorded In the past 12 months, has l ack of transportation kept you from medical appts, meetings, work or from getting things needed for daily living? Yes, it has kept me from medical appointments or getting medications. 04/20/2024 Utilities Answer Date Recorded In the past 12 months, has t he electric, gas, oil or water company threatened to shut off services in your home? No 04/20/2024 Depression Answer Date Recorded Patient Health Questionnaire-2 Score 4 05/02/2024 Internet Access Answer Date Recorded Internet Access Q1 No 04/20/2024 Internet Access Q2 I do not want or need it 03/24 Comments Unknown Sex and Gender Information Value Date Recorded Sex Assigned at Female 01/20/2022 10:14 AM EDT Legal Sex Female 10:14 AM EDT Gender Identity Female 01/20/2022 10:14 AM EDT Sexual Orientation Straight 01/20/2022 10 :14 AM EDT documented as of this encounter Progress Notes * Jacoby Donald MD - 05/02/2024 1:15 PM EST Subjective Patient ID: Gaby Arteaga [...] reviewed by provider. Last PCP appt: 11/24/23 [facility] reviewed. States that orthopedic surgeon told her [...] her apartment. Has rented friend's room in [place] from Feb to May 2024. Gaby applied for an apartment with housing location service on [facility], Labs done 10/25/2023. No constipation. Quit smoking 01/2022 Has 3 sons, eldest is in psychiatric residential program, one lives in [place] and one in [place]. Has 2 daughters, one is disabled and lives with her grandmother in [place], and one lives in [place] and works at [employer] in [place]. Patient gave verbal consent to be seen in this manner. A complete assessment and plan is detailed in the note, all of which were conducted remotely using virtual technology. Patient identity was verbally confirmed with 2 identifiers at the start of the visit. [facility] Provider was located in the clinic during the visit. The following portions of the chart were reviewed this encounter and updated as appropriate: The following portions of the chart were reviewed this encounter and updated as appropriate: Review of Systems Constitutional: Negative for fever. Respiratory: Negative for shortness of breath. Cardiovascular: Negative for chest pain. Gastrointestinal: Negative for abdominal pain. Musculoskeletal: Positive for arthralgias and back pain. Skin: Negative for rash. Neurological: Negative for headaches. Objective Physical Exam Vitals and nursing note reviewed. Constitutional: Appearance: Normal appearance. HENT: Head: Normocephalic and atraumatic. Nose: Nose normal. Eyes: Conjunctiva/sclera: Conjunctivae normal. Pupils: Pupils are equal, round, and reactive to light. Pulmonary: Effort: Pulmonary effort is normal. Skin: General: Skin is warm and dry. Neurological: Mental Status: She is alert. Gait: Gait is intact. Psychiatric: Mood and Affect: Mood and affect normal. Behavior: Behavior normal. Procedures Assessment/Plan Diagnoses and all orders for this visit: Uncomplicated opioid dependence (CMS/HCC) Recovery support, harm reduction (including Narcan) and behavioral health attendance reviewed. Continue Suboxone 24/6 mg on 2 week schedule. - POCT JENNY-14 Urine Drug Screen documented in this encounter Plan of Treatment Upcoming Encounters Date Type Department Care Team (Late st Contact Info) Description 05/16/2024 2:45 PM EST Office Visit [address] [address] Jacoby Donald MD [address] [place] [phone] 05/23/2024 2:45 PM EST Clinical Support [address] [address] Triny Brody, SIRISHA [address] [place] [address] 06/07/2024 1:45 PM EDT Procedure Visit [address] [address] Chelsey Mckenzie CNM [address] [place] [phone] 08/04/2024 11:00 AM EDT Office Visit [address] [address] Juani Sosa ANP [address] [place] [phone] documented as of this encounter Procedures Procedure Name Priority Date/Time Associated Diagnosis Comments POCT JENNY-14 URINE DRUG SCREEN Routine 05/02/2024 1:17 PM EST Uncomplicated opioid dependence ([facility]) documented in this encounter Results * POCT JENNY-14 Urine Drug Screen (05/02/2024 1:17 PM EST) THC Negative Cocaine Screen, Urine Negative Opiate Screen, Urine Negative Methamphetamine Screen Urine Negative Amphetamine Screen, Urine Negative Benzodiazepines Screen, Urine Negative Barbiturate Screen, Urine Negative Methadone Screen, Urine Negative Buprenophine Screen, Urine Positive TCA, Urine Negative MDMA Urine Negative ng/mL Oxycodone Screen, Urine Negative Phencyclidine (PCP), Urine Negative Propoxyphene, Urine Negative Fentanyl, Urine Negative Urine Urine specimen obtained by clean catch procedure / Unknown 05/02/2024 1:17 PM EST Jacoby Donald MD POINT OF CARE TEST ENTER/EDIT OR DERABLES Final Result documented in this encounter Visit Diagnoses Diagnosis Uncomplicated opioid dependence (CMS/HCC)- Primary documented in this encounter Additional Health Concerns Assessment Noted Time PHQ-9 Depression Total Score: 16 025 1:30 PM EST documented as of this encounter Care Teams Signals Officer Relationship Specialty Start Date End Date Juani Sosa ANP [address] [place] [address] PCP - General Family Medicine 02/11/22 Lilian Varghese Chipping Machine OperatorAutomotive Internet Sales Manager 07/02/23 documented as of this encounter
--- OUTSIDE RECORDS SUMMARY | 2024-05-11 02:43 | XMS_ITS | Encounter Summary ---
Author Organization [employer] Address [address] [facility] [address] [place] [address] Care Team Providers Care Schedule Checker Name Role Phone Juani Sosa Primary Care Provider [phone] Reason for Visit * Reason Onset Date Comments Med Refill 04/26/2024 Encounter Details Date Type Department Care Team (Late st Contact Info) Description 04/26/2024 Refill [facility] MED[facility]INE [address] [place] [address] Nalini Blum RN Opioid use disorder Social History Tobacco Use Types Packs/Day Years [...] with others, in a hotel, in a senior living, living outside on the street, on a [...] Recorded Patient Health Questionnaire-2 Score 2 10/06/2023 Internet Access Answer Date Recorded Internet Access [...] AM EDT documented as of this encounter Plan of Treatment Upcoming Encounters Date Type Department Care Team (Late st Contact Info) Description 05/16/2024 2:45 PM EST Office Visit [address] [address] Jacoby Donald MD [address] [place] [phone] 05/23/2024 2:45 PM EST Clinical Support [address] [address] Triny Brody, RN [address] [place] [phone] 06/07/2024 1:45 PM EDT Procedure Visit [address] [address] Chelsey Mckenzie CNM [address] [place] [address] 08/04/2024 11:00 AM EDT Office Visit [address] [address] Juani Sosa ANP [address] [place] [phone] documented as of this encounter Visit Diagnoses Diagnosis Opioid use disorder documented in this encounter Additional Health Concerns Assessment Noted Time PHQ-9 Depression Total Score: 9 10/06/19 24 11:29 AM EDT documented as of this encounter Care Teams Schedule Checker Relationship Specialty Start Date End Date Juani Sosa ANP [address] [place] [address] PCP - General Family Medicine 02/11/22 Lilian Varghese Food And Beverage DirectorEconomic Analyst 07/02/23 documented as of this encounter
--- OUTSIDE RECORDS SUMMARY | 2024-05-11 02:43 | XMS_ITS | Encounter Summary ---
Author Organization [employer] Address [address] [place] [address] 7t [place] [address] Care Team Providers Care Glue Spreader Name Role Phone Alona Crane Primary Care Provider [phone] Reason for Referral * Consultation (Routine) - Authorized Specialty Diagnoses / Procedures Referred By Toni milan Referred To Contact Vascular Surgery Diagnoses Bilateral leg edema Alona Crane ANP [address] [place] [address] Phone: tel: fax: [facility] Referral ID Status Reason Start Date Expiration Date Visits Requested Visits Authorized [id number] Authorized Specialty Services Required 05/02/2024 05/02/2025 1 1 * Imaging (Routine) - Closed Specialty Diagnoses / Procedures Referred By Toni milan Referred To Contact Radiology Diagnoses Screening mammogram for breast cancer Procedures BI Mammogram Screening Bilateral Alona Crane ANP [address] [place] [address] Phone: tel: fax: [facility] [address] [place] [address] Phone: tel: fax: Referral ID Status Reason Start Date Expiration Date Visits Re quested Visits Authorized [id number] Closed 05/02/2024 05/02/2025 1 1 Encounter Details Date Type Department Care Team (Late st Contact Info) Description 05/02/2024 1:30 PM EST Office Visit [facility] [address] [place] [address] Alona Crane, ANP [address] [place] [address] Screening mammogram for breast cancer (Primary Dx); Moderate persistent asthma without complication; Bilateral leg edema; Screening for colon cancer; Chronic pain of both knees; Bilateral hand pain; Essential hypertension; Homeless; Screening for cervical cancer Social History Tobacco Use Types Packs/Day Years [...] with others, in a hotel, in a fci, living outside on the street, on a [...] AM EDT documented as of this encounter Last Filed Vital Signs Vital Sign Reading Time Taken Comments Blood Pressure 142/83 05/02/2024 1:24 PM EST Pulse 102 05/02/2024 1:24 PM EST Temperature 36.5 ??C (97.7 ??F) 05/02/2024 1:24 PM ES T Respiratory Rate 22 05/02/2024 1:24 PM EST Oxygen Saturation 96% 05/02/2024 1:24 PM EST Inhaled Oxygen Concentration - - Weight 102 kg (224 lb) 05/02/2024 1:24 PM EST Height 157.5 cm (5' 2 ) 05/02/2024 1:24 PM EST Body Mass Index 40.97 05/02/2024 1:24 PM EST documented in this encounter Progress Notes * BLANKA Pham - 05/02/2024 1:30 PM EST SUBJECTIVE: Gaby Arteaga is a 58 y.o. year old female who presents for routine physical exam. Denies recent illness, injury, or hospitalization. PMH hypertension, anxiety, polysubstance use, major depression, epigastric pain, asthma, PTSD, bipolar disorder, LBBB, KENDRA, gastroparesis Engaged in [facility]AT program, on Suboxone Acute Concerns: Bilateral knee pain: Follows with [facility] for Euflexxa injections. She is going to get R knee replacement she tells me. BLE edema: taking 12.5 hydrochlorothiazide daily without relief. Eats low salt diet. Does report FARMER (, no CP or orthopnea. Echo normal 04/29/23. SOB: as above. Has also been out of ellipta. Has albuterol for prn use. Was scheduled with CNM for Pap-prefers female provider-did not attend appointment as scheduled. Does agree to reschedule. She is going to be homeless soon - the place where she is staying her friend's roommate is coming back after being away. Is working with way finders and has put in multiple applications for housing. She continues to need JUNIOR MECHANICAL ENGINEER assistance w/ ADLs. Plan today will be : Reschedule with CNM Increase HCTZ to 25 mg daily Refer to vascular, compression socks rx x 2, check labs to r/o CHF or electrolyte abn. 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 pylori) infection Obesity Tear of medial meniscus of knee Asthma PTSD (post-traumatic stress disorder) Bipolar disorder (CMS/HCC) Abnormal nuclear stress test Acute bronchitis with chronic obstructive pulmonary disease (COPD) (CMS/HCC) (CMS/HCC) History of left bundle branch block Dyspnea on exertion Gastroparesis History of heroin use LBBB (left bundle branch block) KENDRA (obstructive sleep apnea) Allergic reaction Constipation by delayed colonic transit Primary osteoarthritis of right knee Sinusitis Chronic pain of both knees History reviewed. No pertinent surgical history. Family History Problem Relation Name Age of Onset Cancer Mother 55 breast Review of Systems Constitutional: Negative for chills, fatigue, fever and unexpected weight change. HENT: Positive for congestion. Negative for sore throat. Eyes: Negative for visual disturbance. Respiratory: Positive for shortness of breath. Negative for wheezing. Cardiovascular: Positive for leg swelling. Negative for chest pain and palpitations. Gastrointestinal: Negative for abdominal pain, constipation, nausea and vomiting. Endocrine: Negative for polydipsia, polyphagia and polyuria. Genitourinary: Negative for dysuria. Musculoskeletal: Positive for arthralgias. Neurological: Negative for dizziness, weakness, numbness and headaches. Psychiatric/Behavioral: The patient is nervous/anxious. OBJECTIVE: Vitals: 05/02/24 1324 BP: (!) 142/83 BP Location: Left arm Patient Position: Sitting BP Cuff Size: Adult Pulse: 102 Resp: 22 Temp: 97.7 ??F (36.5 ??C) TempSrc: Temporal SpO2: 96% Weight: 224 lb (102 kg) Height: 5' 2 (1.575 m) Physical Exam Vitals reviewed. Constitutional: General: She is not in acute distress. Appearance: Normal appearance. She is not ill-appearing. HENT: Head: Normocephalic and atraumatic. Eyes: General: No scleral icterus. Extraocular Movements: Extraocular movements intact. Pupils: Pupils are equal, round, and reactive to light. Cardiovascular: Rate and Rhythm: Normal rate and regular rhythm. Pulmonary: Effort: Pulmonary effort is normal. No accessory muscle usage or respiratory distress. Breath sounds: Normal breath sounds. No wheezing, rhonchi or rales. Musculoskeletal: Right lower leg: Edema present. Left lower leg: Edema present. Lymphadenopathy: Cervical: No cervical adenopathy. Skin: General: Skin is warm and dry. Neurological: Mental Status: She is alert and oriented to person, place, and time. Cranial Nerves: No cranial nerve deficit. Psychiatric: Mood and Affect: Mood normal. Behavior: Behavior normal. ASSESSMENT/PLAN Plan today will be : Reschedule with KUN Ocasio for CRC screening Increase HCTZ to 25 mg daily Refer to vascular, compression socks rx x 2, check labs to r/o CHF or electrolyte abn. Diagnoses and all orders for this visit: Screening mammogram for breast cancer (Primary) Comments: Agreed to schedule Orders: - BI Mammogram Screening Bilateral; Future Moderate persistent asthma without complication Comments: Lungs CTAB. Refilled Ellipta and albuterol for as needed use Orders: - fluticasone furoate (Arnuity Ellipta) 100 MCG/ACT inhaler; Inhale 2 puffs Once per day. Rinse mouth with water after use to reduce aftertaste and incidence of candidiasis. Do not swallow. - albuterol (ProAir HFA) 108 (90 Base) MCG/ACT inhaler; Inhale 2 puffs every 4 (four) hours if needed for shortness of breath or wheezing. Bilateral leg edema On exam, lungs CTAB, has BLE edema, pitting 1+ on R, no pitting on L, pulses present - B Type Natriuretic Peptide (BNP); Future - Comprehensive Metabolic Panel; Future - TSH W/Reflex to FT4; Future - CBC auto differential; Future - hydroCHLOROthiazide (HYDRODiuril) 25 MG tablet; Take 1 tablet (25 mg) by mouth Once per day. - vascular referral - DME compression socks - cont low salt diet, elevate BLE Screening for colon cancer - Cologuard?? colon cancer screening Chronic pain of both knees Cont plan per ortho - Diclofenac Sodium (Voltaren) 1 % gel; Apply 2g up to 4x/d to affected joint(s) for pain/swelling Bilateral hand pain - Diclofenac Sodium (Voltaren) 1 % gel; Apply 2g up to 4x/d to affected joint(s) for pain/swelling Essential hypertension Goal 130/80 Cont: Isosorbide mononitrate ER 30 mg, metronidazole succinate XL 25 mg, HCTZ 25 mg (increased today) BP above goal, Continue to encourage low salt diet, regular exercise, home BP monitoring, compliance with medications. Call clinic if BP is frequently >150/90 Go to ED/call 911 if > 170/100 and having sx such as PADILLA, visual changes, chest pain, SOB Last renal function: Lab Results Component Value Date GLUCOSE 132 (H) 10/25/2023 NA 140 10/25/2023 K 3.3 10/25/2023 CO2 30 (H) 10/25/2023 CL 101 10/25/2023 BUN 13 10/25/2023 CREATININE 0.74 10/25/2023 EGFR >60 10/25/2023 Lab Results Component Value Date MICROALBCREA 3 04/03/2020 No results found for: MICROALBCREU - hydroCHLOROthiazide (HYDRODiuril) 25 MG tablet; Take 1 tablet (25 mg) by mouth Once per day. Homeless Has been referred previously to [facility] team Screening for cervical cancer Comments: Agreed to reschedule with CNM. Prefers female provider. Follow Up: 2 mo BLE edema Current Outpatient Medications on File Prior to Visit Medication Sig Dispense Refill Aspirin Low Dose 81 MG EC tablet Take 81 mg by mouth Once per day. Blood Pressure Monitoring (Omron 3 Series BP Monitor) device USE TO CHECK BLOOD PRESSURE TWICE DAILY Buprenorphine HCl-Naloxone HCl (Suboxone) 8-[address] 1 Film under the tongue 2 times daily for 14 days. 28 Film 0 Buprenorphine HCl-Naloxone HCl (Suboxone) 8-[address] 1 Film under the tongue 2 times daily for 14 days. 28 Film 0 Buprenorphine HCl-Naloxone HCl (Suboxone) 8-[address] 1 Film under the tongue 3 times daily for 14 days. 42 Film 0 buprenorphine-naloxone (Suboxone) 4-1 MG per sublingual film Place 1 Film under the tongue Once perday for 14 days. 14 Film 0 cetirizine (ZyrTEC) 10 MG tablet Take 1 tablet (10 mg) by mouth Once per day. 90 tablet 1 docusate sodium (Colace) 100 MG capsule TAKE 1 CAPSULE BY MOUTH TWICE DAILY IN THE MORNING AND IN THE EVENING NEEDED FOR CONSTIPATION 180 capsule 1 fluticasone (Flonase) 50 MCG/ACT nasal spray [place] 2 sprays into each nostril every day as needed 48 mL 0 isosorbide mononitrate ER (Imdur) 30 MG 24 hr tablet Take 30 mg by mouth Once per day. metoprolol succinate XL (Toprol-XL) 25 MG 24 hr tablet Take 25 mg by mouth in the morning. mineral oil-hydrophilic petrolatum (Aquaphor) ointment Apply topically if needed for dry skin. 396 g 0 naloxone (Narcan) 4 mg/0.1 mL nasal spray Administer 1 spray (4 mg) into affected nostril(s) if needed for opioid reversal. May repeat every 2-3 minutes if needed, alternating nostrils, until medicalassistance becomes available. 2 each 2 omeprazole (PriLOSEC) [address] capsule TAKE 1 CAPSULE BY MOUTH BEFORE BREAKFAST. DO NOT BREAK, CRUSH, DISSOLVE OR CHEW 90 capsule 0 ondansetron ODT (Zofran-ODT) 4 MG disintegrating tablet TAKE 1 TABLET ORALLY EVERY 8 HOURS NEEDED FOR NAUSEA AND VOMITING risperiDONE (RisperDAL) 1 MG tablet Take 1 tablet (1 mg) by mouth at bedtime. 90 tablet 1 senna-docusate sodium (Senokot-S) 8.6-50 MG tablet Take 1-2 tabs once daily as needed for constipation 90 tablet 3 Spacer/Aero-Holding Chambers device Use with albuterol 1 each 0 tiZANidine (Zanaflex) 2 MG tablet Take 1 tablet (2 mg) by mouth every 6 (six) hours if needed for muscle spasms for up to 10 days. 30 tablet 0 triamcinolone (Kenalog) 0.1 % cream Apply topically 2 times daily. Call clinic if no improvement in2 weeks 45 g 0 [DISCONTINUED] albuterol (ProAir HFA) 108 (90 Base) MCG/ACT inhaler Inhale 2 puffs every 4 (four) hours if needed for shortness of breath or wheezing. 18 g 11 [DISCONTINUED] amoxicillin (Amoxil) 500 MG capsule Take 1 tab po bid for 10 days 20 capsule 0 [DISCONTINUED] Buprenorphine HCl-Naloxone HCl (Suboxone) 8-[address] 1 Film under the tongue 3 times daily for 14 days. 42 Film 0 [DISCONTINUED] fluticasone furoate (Arnuity Ellipta) 100 MCG/ACT inhaler Inhale 2 puffs Once per day. Rinse mouth with water after use to reduce aftertaste and incidence of candidiasis. Do not swallow. 1 each 0 [DISCONTINUED] hydroCHLOROthiazide 12.5 MG tablet TAKE 1 TABLET BY MOUTH EVERY DAY IN THE MORNING 90 tablet 0 No current facility-administered medications on file prior to visit. documented in this encounter Miscellaneous Notes * Addendum Note - BLANKA Pham - 05/02/2024 1:30 PM ESTAddended by: ALONA CRANE on: 05/02/2024 03:23 PM Modules accepted: Orders documented in this encounter Plan of Treatment Upcoming Encounters Date Type Department Care Team (Late st Contact Info) Description 05/16/2024 2:45 PM EST Office Visit [address] [address] Jacoby Donald MD [address] [place] [address] 05/23/2024 2:45 PM EST Clinical Support [address] [address] Triny Brody RN [address] [place] [phone] 06/07/2024 1:45 PM EDT Procedure Visit [address] [address] Chelsey Mckenzie CNM [address] [place] [address] 08/04/2024 11:00 AM EDT Office Visit [facility] [address] [place] [address] Alona Crane ANP [address] [place] [address] Scheduled Orders Name Type Priority Associated Diagnoses Orde r Schedule BI Mammogram Screening Bilateral Imaging Routine Screening mammogram for breast cancer Expected: 05/02/2024, Expires: 05/03/2025 B Type Natriuretic Peptide (BNP) Lab Routine Bilateral leg edema Expected: 05/02/2024, Expires: 05/02/2025 Comprehensive Metabolic Panel Lab Routine Bilateral leg edema Expected: 05/02/2024 (Approximate), Expires: 05/02/2025 TSH W/Reflex to FT4 Lab Routine Bilateral leg edema Expected: 05/02/2024 (Approximate), Expires: 05/02/2025 Cologuard?? colon cancer screening Lab Routine Screening for colon cancer Ordered: 05/02/2024 CBC auto differential Lab Routine Bilateral leg edema Expected: 05/02/2024 (Approximate), Expires: 05/02/2025 Scheduled Referrals Name Type Priority Associated Diagnoses Orde r Schedule Referral to Vascular Surgery Outpatient Referral Routine Bilateral leg edema Expected: 05/02/2024 (Approximate), Expires: 05/02/2025 documented as of this encounter Visit Diagnoses Diagnosis Screening mammogram for breast cancer- Primary Moderate persistent asthma without complication Bilateral leg edema Edema Screening for colon cancer Special screening for malignant neoplasms, colon Chronic pain of both knees Bilateral hand pain Essential hypertension Unspecified essential hypertension Homeless Lack of housing Screening for cervical cancer Screening for malignant neoplasm of the cervix documented in this encounter Additional Health Concerns Assessment Noted Time PHQ-9 Depression Total Score: 16 025 1:30 PM EST documented as of this encounter Care Teams Glue Spreader Relationship Specialty Start Date End Date Alona Crane ANP [address] [place] [address] PCP - General Family Medicine 02/11/22 Lilian Varghese Residential Life DirectorCannoneer 07/02/23 documented as of this encounter
--- OUTSIDE RECORDS SUMMARY | 2024-05-11 02:43 | XMS_ITS | Encounter Summary ---
Author Organization [employer] Address [address] [place] [address] Care Team Providers Care Valet Attendant Name Role Phone Juani Sosa Primary Care Provider [phone] Reason for Visit * Reason Onset Date Comments Pre op 04/13/2023 Encounter Details Date Type Department Care Team ([facility] st Contact Info) Description 04/13/2023 Telephone [facility] [address] [place], [place] [phone] Juani Sosa ANP [address] [place], [place] [phone] Pre op Social History Tobacco Use Types Packs/Day Years Used Date Smoking Tobacco: Former Cigarettes Q uit: 01/21/2022 Smokeless Tobacco: Never Alcohol Use Standard Drinks/Week Comments Never 0 (1 standard drink = 0.6 oz pur e alcohol) Depression Answer Date Recorded Patient Health Questionnaire-9 Score 14 04/09/2023 Patient Health Questionnaire-9 Score 14 04/09/2023 Last PHQ-9: Questionnaire Data Not on file 0 04/09/2023 Housing Stability Answer Date Recorded What is [...] Date Recorded Patient Health Questionnaire-2 Score 4 04/09/2023 Comments Unknown Sex and Gender Information Value Date Recorded Sex Assigned at Female 01/20/2022 10:14 AM EDT Legal Sex Female 10:14 AM EDT Gender Identity Female 01/20/2022 10:14 AM EDT Sexual Orientation Straight 01/20/2022 10 :14 AM EDT documented as of this encounter Miscellaneous Notes * Telephone Encounter - Gertrude Chow - 04/13/2023 12:30 PM EST Date of Surgery: 06/01/2023 Surgical procedure being done: right total knee arthroplasty Type of anesthesia: spinal block anesthesia Lab needed: Yes EKG: Yes Surgeon's name: Dr Tim Mcdermott Facility name: [facility] Surgeon's office number: [phone] Surgeon's office fax number: [phone] Contact name (person you spoke with): Ngoc [facility] Last office note from surgeon requested: no documented in this encounter Plan of Treatment Upcoming Encounters Date Type Department Care Team (Late st Contact Info) Description 05/16/2024 2:45 PM EST Office Visit [facility] [address] [place] [address] Jacoby Donald MD [address] [place] [address] 05/23/2024 2:45 PM EST Clinical Support [facility] [address] [place] [address] Triny Brody, SIRISHA [address] [place] [address] 06/07/2024 1:45 PM EDT Procedure Visit [facility] [address] [place], [place] [phone] Chelsey Mckenzie CNM [address] [place], [place] [phone] 08/04/2024 11:00 AM EDT Office Visit [facility] [address] [place] [address] Juani Sosa ANP [address] [place], [place] [phone] documented as of this encounter Visit Diagnoses Not on filedocumented in this encounter Additional Health Concerns Assessment Noted Time PHQ-9 Depression Total Score: 14 024 10:44 AM EST documented as of this encounter Care Teams Valet Attendant Relationship Specialty Start Date End Date Juani Sosa ANP [address] [place] [phone] PCP - General Family Medicine 02/11/22 Lilian Varghese Technology TrainerEditor Managing Director 07/02/23 documented as of this encounter
--- OUTSIDE RECORDS SUMMARY | 2024-05-11 02:43 | XMS_ITS | Encounter Summary ---
Author Organization [employer] Address [address] [place] [address] Care Team Providers Care Mid Level Practitioner Name Role Phone Juani Sosa Primary Care Provider [phone] Encounter Details Date Type Department Care Team (Late st Contact Info) Description 08/07/2023 Orders Only [facility] [address] [place], [place] [phone] Leeanne Mandel FNP Social History Tobacco Use Types Packs/Day Years Used Date Smoking Tobacco: Former Cigarettes Q uit: 01/21/2022 Smokeless Tobacco: Never Alcohol Use Standard Drinks/Week Comments Never 0 (1 standard drink = 0.6 oz pur e alcohol) Depression Answer Date Recorded Patient Health Questionnaire-9 Score 10 04/28/2023 Patient Health Questionnaire-9 Score 10 04/28/2023 Last PHQ-9: Questionnaire Data Not on file 0 04/28/2023 Housing Stability Answer Date Recorded What is your housing situation today? I have kayden sing 04/08/[address] you li [...] Answer Date Recorded Patient Health Questionnaire-2 Score 1 04/28/2023 Comments Unknown Sex and Gender Information Value [...] Description 05/16/2024 2:45 PM EST Office Visit [address] [address] Jacoby Donald MD [address] [place] [address] 05/23/2024 2:45 PM EST Clinical Support [address] [address] Triny Brody, RN [address] [place] [phone] 06/07/2024 1:45 PM EDT Procedure Visit [address] [address] Chelsey Mckenzie CNM [address] [place] [address] 08/04/2024 11:00 AM EDT Office Visit [address] [address] Juani Sosa ANP [address] [place] [address] documented as of this encounter Visit Diagnoses Not on filedocumented in this encounter Additional Health Concerns Assessment Noted Time PHQ-9 Depression Total Score: 10 024 10:06 AM EST documented as of this encounter Care Teams Mid Level Practitioner Relationship Specialty Start Date End Date Juani Sosa ANP [address] [place] [address] PCP - General Family Medicine 02/11/22 Lilian Varghese Oracle Application ArchitectForestry Instructor 07/02/23 documented as of this encounter
--- OUTSIDE RECORDS SUMMARY | 2024-05-11 02:43 | XMS_ITS | Encounter Summary ---
Author Organization [employer] Address [address] [place] [address] Care Team Providers Care Content Publisher Name Role Phone Juani Sosa Primary Care Provider [phone] Reason for Visit * Reason Onset Date Comments Med Refill Appointment 09/10/2023 [facility] Encounter Details Date Type Department Care Team (Late st Contact Info) Description 09/10/2023 Refill [facility] [address] [place] [address] Rafael Shahid FNP Social History Tobacco Use Types Packs/Day [...] encounter Miscellaneous Notes * Telephone Encounter - Janeth Charles MA - 09/11/2023 9:28 AM EDT T/C placed to pt regarding message below. Pt states she is not seeing any other med prescriber. Abhi-schedule an apt for 10/06/23 as [id number] documented in this encounter Plan of Treatment Upcoming Encounters Date Type Department Care Team (Late st Contact Info) Description 05/16/2024 2:45 PM EST Office Visit [address] [address] Jacoby Donald MD [address] [place] [address] 05/23/2024 2:45 PM EST Clinical Support [address] [address] Triny Brody, SIRISHA [address] [place] [address] 06/07/2024 1:45 PM EDT Procedure Visit [facility] [address] [place] [address] Chelsey Mckenzie CNM [address] [place] [phone] 08/04/2024 11:00 AM EDT Office Visit [facility] [address] [place] [address] Juani Sosa ANP [address] [place] [address] documented as of this encounter Visit Diagnoses Not on filedocumented in this encounter Additional Health Concerns Assessment Noted Time PHQ-9 Depression Total Score: 10 024 10:06 AM EST documented as of this encounter Care Teams Content Publisher Relationship Specialty Start Date End Date Juani Sosa ANP [address] [place] [address] PCP - General Family Medicine 02/11/22 Lilian Varghese Yard HandTraffic Enumerator 07/02/23 documented as of this encounter
--- OUTSIDE RECORDS SUMMARY | 2024-05-11 02:43 | XMS_ITS | Encounter Summary ---
Author Organization [employer] Address [address] [facility] 7t [place] [address] Care Team Providers Care Metal Technician Name Role Phone Juani Sosa Primary Care Provider [phone] Reason for Visit * Reason Onset Date Comments Durable Medical Equipment 02/17/2023 Edvin Encounter Details Date Type Department Care Team ([facility] Contact Info) Description 02/17/2023 Telephone [facility] [address] [place], [place] [phone] Juani Sosa ANP [address] [place] [address] Durable Medical Equipment (Walker) Social History Tobacco Use Types Packs/Day Years Used Date Smoking Tobacco: Former Cigarettes Q uit: 01/21/2022 Smokeless Tobacco: Never Alcohol Use Standard Drinks/Week Comments Never 0 (1 standard drink = 0.6 oz pur e alcohol) Depression Answer Date Recorded Patient Health Questionnaire-9 Score 16 08/04/2022 Housing Stability Answer Date Recorded What is your housing situation today? I have kayden aguilar 01/02/[address] you li ve. Do you have problems with any of the following? Pests such as bugs, ants, or mice 01/02/2023 Food Insecurity Answer Date Recorded Within the past 12 months, y ou worried that your food would run out before you got money to buy more: Sometimes True 2022 Within the past 12 months,th e food you bought just didn't last and you didn't have enough money to get more: Sometimes True 01/05/2023 Transportation Answer Date Recorded In the past [...] Answer Date Recorded Patient Health Questionnaire-2 Score 6 08/04/2022 Comments Unknown Sex and Gender Information Value Date Recorded Sex Assigned at Female 01/20/2022 10:14 AM EDT Legal Sex Female 10:14 AM EDT Gender Identity Female 01/20/2022 10:14 AM EDT Sexual Orientation Straight 01/20/2022 10 :14 AM EDT documented as of this encounter Miscellaneous Notes * Telephone Encounter - Lisa Muse - 02/19/2023 10:38 AM EST Please see message below and advise. Thank you * Telephone Encounter - Ariel Jones - 02/17/2023 2:26 PM EST Tc from patient requesting status of Wheel Rollator Walker With Seat, Steel Rolling Walker states requested back in November however policy writer typist does not see it on patients chart. documented in this encounter Plan of Treatment Upcoming Encounters Date Type Department Care Team (Late st Contact Info) Description 05/16/2024 2:45 PM EST Office Visit [facility] [address] [place] [phone] Jacoby Donald MD [address] [place] [address] 05/23/2024 2:45 PM EST Clinical Support [address] [address] Triny Brody, SIRISHA [address] [place] [address] 06/07/2024 1:45 PM EDT Procedure Visit [address] [address] Chelsey Mckenzie CNM [address] [place] [address] 08/04/2024 11:00 AM EDT Office Visit [facility] [address] [place], [place] [phone] Juani Sosa ANP [address] [place] [address] documented as of this encounter Visit Diagnoses Not on filedocumented in this encounter Additional Health Concerns Assessment Noted Time PHQ-9 Depression Total Score: 16 023 9:58 AM EDT documented as of this encounter Care Teams Metal Technician Relationship Specialty Start Date End Date Juani Sosa ANP [address] [place] [phone] PCP - General Family Medicine 02/11/22 Lilian Varghese Printing TechnicianWax Pattern Coater 07/02/23 documented as of this encounter
--- OUTSIDE RECORDS SUMMARY | 2024-05-11 02:43 | XMS_ITS | Encounter Summary ---
Author Organization [employer] Address [address] [facility] [address] 7[address] [place] [address] Care Team Providers Care City Dispatch Supervisor Name Role Phone Juani Sosa Primary Care Provider [phone] Encounter Details Date Type Department Care Team (Latest Contact Info) Description 04/18/2024 Travel Social History Tobacco Use Types Packs/Day Years [...] Description 05/16/2024 2:45 PM EST Office Visit [address] [address] Jacoby Donald MD [address] [place] [address] 05/23/2024 2:45 PM EST Clinical Support [address] [address] Triny Brody RN [address] [place] [address] 06/07/2024 1:45 PM EDT Procedure Visit [address] [address] Chelsey Mckenzie CNM [address] [place] [address] 08/04/2024 11:00 AM EDT Office Visit [address] [address] Juani Sosa ANP [address] [place] [address] documented as of this encounter Visit Diagnoses Not on filedocumented in this encounter Additional Health Concerns Assessment Noted Time PHQ-9 Depression Total Score: 9 10/06/19 24 11:29 AM EDT documented as of this encounter Care Teams City Dispatch Supervisor Relationship Specialty Start Date End Date Juani Sosa ANP [address] [place] [address] PCP - General Family Medicine 02/11/22 Lilian Varghese Table And Desk FinisherPolytechnic Teacher 07/02/23 documented as of this encounter
--- OUTSIDE RECORDS SUMMARY | 2024-05-11 02:43 | XMS_ITS | Encounter Summary ---
Author Organization [employer] Address [address] [place] [address] 7t [place] [address] Care Team Providers Care Filler And Trimmer Name Role Phone Juani Sosa Primary Care Provider [phone] Reason for Visit * Reason Comments Pre-visit Planning SDOH Screening posit jean and Tobacco screening negative Encounter Details Date Type Department Care Team ([facility] Contact Info) Description 04/20/2024 Patient Outreach [facility] [address] [place], [place] [phone] Juani Sosa ANP [address] [place] [address] Pre-visit Planning (SDOH Screening positive and Tobacco screening negative) Social History Tobacco Use Types Packs/Day Years [...] with others, in a hotel, in a longterm, living outside on the street, on a [...] as of this encounter Progress Notes * Shannon Smiley - 04/20/2024 1:53 PM EST GRACIE Middleton placed successful outbound call to patient for pre-visit planning. Patient name and confirmed. Patient confirms appt date and time, and has transportation arrangements. Biggest concern for appointment at this time is both knee swollen and pain.Patient educated on extended clinic hours. Patient advised to bring to appointment a photo id and insurance card. Appropriate screenings completed in anticipation of appointment. SDOH positive. Patient looking for assistance with Housing(Homeless) and transportation. Referral will be placed. documented in this encounter Plan of Treatment Upcoming Encounters Date Type Department Care Team (Late st Contact Info) Description 05/16/2024 2:45 PM EST Office Visit [facility] [address] [place] [address] Jacoby Donald MD [address] [place] [address] 05/23/2024 2:45 PM EST Clinical Support [facility] [address] [place] [phone] Triny Brody, RN [address] [place] [address] 06/07/2024 1:45 PM EDT Procedure Visit [address] [address] Chelsey Mckenzie CNM [address] [place] [address] 08/04/2024 11:00 AM EDT Office Visit [address] [address] Juani Sosa ANP [address] [place] [address] documented as of this encounter Visit Diagnoses Not on filedocumented in this encounter Additional Health Concerns Assessment Noted Time PHQ-9 Depression Total Score: 9 10/06/19 24 11:29 AM EDT documented as of this encounter Care Teams Filler And Trimmer Relationship Specialty Start Date End Date Juani Sosa ANP [address] [place] [phone] PCP - General Family Medicine 02/11/22 Lilian Varghese Senior Corporate RecruiterBilling Machine Operator 07/02/23 documented as of this encounter
--- OUTSIDE RECORDS SUMMARY | 2024-05-11 02:43 | XMS_ITS | Encounter Summary ---
Author Organization [employer] Address [address] [facility] [address] 7[address] [place] [address] Care Team Providers Care Jewelry Bench Worker Name Role Phone Juani Sosa Primary Care Provider [phone] Encounter Details Date Type Department Care Team (Late st Contact Info) Description 04/09/2023 Orders Only [facility] [address] [place], [place] [phone] Nalini Blum RN Uncomplicated opioid dependence (CMS/HCC) Social History Tobacco Use Types Packs/Day Years [...] your housing situation today? I have kayden jeff 04/08/[address] you li [...] 05/16/2024 2:45 PM EST Office Visit [address] [address] Jacoby Donald MD [address] [place] [address] 05/23/2024 2:45 PM EST Clinical Support [address] [address] Triny Brody, SIRISHA [address] [place] [address] 06/07/2024 1:45 PM EDT Procedure Visit [address] [address] Chelsey Mckenzie CNM [address] [place] [address] 08/04/2024 11:00 AM EDT Office Visit [address] [address] Juani Sosa ANP [address] [place] [address] Scheduled Orders Name Type Priority Associated Diagnoses Orde r Schedule Hepatic Function Panel Lab Routine Uncomplicated opioid dependence (CMS/HCC) Expected: 04/09/2023 (Approximate), Expires: 04/09/2024 Hepatitis B Core Antibody, Total Lab Routine Uncomplicated opioid dependence (CMS/HCC) Expected: 04/09/2023 (Approximate), Expires: 04/09/2024 Hepatitis A Antibody, Total Lab Routine Uncomplicated opioid dependence (CMS/HCC) Expected: 04/09/2023 (Approximate), Expires: 04/09/2024 Hepatitis B Surface Antibody, Qualitative Lab Routine Uncomplicated opioid dependence (CMS/HCC) Expected: 04/09/2023 (Approximate), Expires: 04/09/2024 Hepatitis B surface antigen, EIA Lab Routine Uncomplicated opioid dependence (CMS/HCC) Expected: 04/09/2023 (Approximate), Expires: 04/09/2024 Hepatitis C Antibody with Reflex to HCV, RNA, Quantitative, Real-Time PCR Lab Routine Uncomplicated opioid dependence (CMS/HCC) Expected: 04/09/2023 (Approximate), Expires: 04/09/2024 HIV-1/2 Antigen and Antibodies, Fourth Generation, with Reflexes Lab Routine Uncomplicated opioid dependence (CMS/HCC) Expected: 04/09/2023 (Approximate), Expires: 04/09/2024 Syphilis Screen Lab Routine Uncomplicated opioid dependence (CMS/HCC) Expected: 04/09/2023 (Approximate), Expires: 04/09/2024 T-SPOT??[email or web address] Lab Routine Uncomplicated opioid dependence (CMS/HCC) Expected: 04/09/2023 (Approximate), Expires: 04/09/2024 documented as of this encounter Visit Diagnoses Diagnosis Uncomplicated opioid dependence (CMS/HCC) documented in this encounter Additional Health Concerns Assessment Noted Time PHQ-9 Depression Total Score: 14 024 10:44 AM EST documented as of this encounter Care Teams Jewelry Bench Worker Relationship Specialty Start Date End Date Juani Sosa ANP [address] [place] [address] PCP - General Family Medicine 02/11/22 Lilian Varghese Journey LinemanDynamometer Tuner 07/02/23 documented as of this encounter
--- OUTSIDE RECORDS SUMMARY | 2024-05-11 02:43 | XMS_ITS | Encounter Summary ---
Author Organization [employer] Address [address] [facility] 7t [place] [address] Care Team Providers Care Warranty Clerk Name Role Phone Juani Sosa Primary Care Provider [phone] Reason for Visit * Reason Onset Date Comments Med Refill 05/05/2024 Encounter Details Date Type Department Care Team ([facility] st Contact Info) Description 05/05/[address] [facility] [address] [place] [address] Nalini Blum RN Opioid use disorder Social [...] with others, in a hotel, in a care home, living outside on the street, on a [...] Description 05/16/2024 2:45 PM EST Office Visit [address] [address] Jacoby Donald MD [address] [place] [address] 05/23/2024 2:45 PM EST Clinical Support [address] [address] Triny Brody, SIRISHA [address] [place] [address] 06/07/2024 1:45 PM EDT Procedure Visit [address] [address] Chelsey Mckenzie CNM [address] [place] [address] 08/04/2024 11:00 AM EDT Office Visit [address] [address] Juani Sosa ANP [address] [place] [address] documented as of this encounter Visit Diagnoses Diagnosis Opioid use disorder documented in this encounter Additional Health Concerns Assessment Noted Time PHQ-9 Depression Total Score: 16 025 1:30 PM EST documented as of this encounter Care Teams Warranty Clerk Relationship Specialty Start Date End Date Juani Sosa ANP [address] [place] [address] PCP - General Family Medicine 02/11/22 Lilian Varghese Motor Vehicle ExaminerCell Coverer 07/02/23 documented as of this encounter
--- OUTSIDE RECORDS SUMMARY | 2024-05-11 02:43 | XMS_ITS | Clinical Summary ---
Author Organization [employer] Address [address] [place] [address] Care Team Providers Care Device Repair Technician Name Role Phone Juani Sosa Primary Care Provider [phone] Allergies Active Allergy Reactions Criticality Noted Date Comments Hydroxyzine High 06/19/2023 Other Reaction(s): reports redness and swelling Ibuprofen Swelling 11/03/2023 Lisinopril Angioedema 09/21/2020 Medications * This document contains information received from the source organization and may not represent a complete record from that organization. Buprenorphine HCl-Naloxone HCl (Suboxone) 8-2 MG SL filmIndications:O pioid use disorder Place 1 Film under the tongue 2 times daily for 14 days. 28 Film 023 Active docusate sodium (Colace) 100 MG capsule TAKE 1 CAPSULE BY MOUTH TWICE DAILY IN THE MORNING AND IN THE EVENING NEEDED FOR CONSTIPATION 180 capsule 1 023 Active metoprolol succinate XL (Toprol-XL) 25 MG 24 hr tablet Take 25 mg by mouth in the morning. 022 Active ondansetron ODT (Zofran-ODT) 4 MG disintegrating tablet TAKE 1 TABLET ORALLY EVERY 8 HOURS NEEDED FOR NAUSEA AND VOMITING 023 Active Blood Pressure Monitoring (Omron 3 Series BP Monitor) device USE TO CHECK BLOOD PRESSURE TWICE DAILY 023 Active triamcinolone (Kenalog) 0.1 % creamIndications: Rash of foot Apply topically 2 times daily. Call clinic if no improvement in 2 weeks 45 g 024 Active Spacer/Aero-Holdi ng Chambers deviceIndications :Moderate persistent asthma with exacerbation Use with albuterol 1 each 024 Active mineral oil-hydrophilic petrolatum (Aquaphor) ointmentIndicatio ns:Contact dermatitis, unspecified contact dermatitis type, unspecified trigger Apply topically if needed for dry skin. 396 g 024 2024 Active isosorbide mononitrate ER (Imdur) 30 MG 24 hr tablet Take 30 mg by mouth Once per day. Active Aspirin Low Dose 81 MG EC tablet Take 81 mg by mouth Once per day. Active Buprenorphine HCl-Naloxone HCl (Suboxone) 8-2 MG SL filmIndications:U ncomplicated opioid dependence (CMS/HCC) Place 1 Film under the tongue 2 times daily for 14 days. 28 Film 024 Active risperiDONE (RisperDAL) 1 MG tablet Take 1 tablet (1 mg) by mouth at bedtime. 90 tablet 1 024 Active tiZANidine (Zanaflex) 2 MG tablet Take 1 tablet (2 mg) by mouth every 6 (six) hours if needed for muscle spasms for up to 10 days. 30 tablet 024 Active cetirizine (ZyrTEC) 10 MG tabletIndications :Nasal congestion Take 1 tablet (10 mg) by mouth Once per day. 90 tablet 1 024 Active senna-docusate sodium (Senokot-S) 8.6-50 MG tabletIndications :Constipation by delayed colonic transit Take 1-2 tabs once daily as needed for constipation 90 tablet 3 024 Active buprenorphine-nal oxone (Suboxone) 4-1 MG per sublingual filmIndications:O pioid type dependence, continuous (CMS/HCC) Place 1 Film under the tongue Once per day for 14 days. 14 Film 024 Active naloxone (Narcan) 4 mg/0.1 mL nasal spray Administer 1 spray (4 mg) into affected nostril(s) if needed for opioid reversal. May repeat every 2-3 minutes if needed, alternating nostrils, until medical assistance becomes available. 2 each 2 024 2024 Active fluticasone (Flonase) 50 MCG/ACT nasal sprayIndications: Non-seasonal allergic rhinitis due to other allergic trigger Mullens 2 sprays into each nostril every day as needed 48 mL Active omeprazole (PriLOSEC) [address] capsuleIndication s:Epigastric pain TAKE 1 CAPSULE BY MOUTH DAILY BEFORE BREAKFAST. DO NOT BREAK, CRUSH, DISSOLVE OR CHEW 90 capsule 1 Active albuterol (ProAir HFA) 108 (90 Base) MCG/ACT inhalerIndication s:Moderate persistent asthma without complication Inhale 2 puffs every 4 (four) hours if needed for shortness of breath or wheezing. 18 g 2 025 Active Diclofenac Sodium (Voltaren) 1 % gelIndications:Ch ronic pain of both knees,Bilateral hand pain Apply 2g up to 4x/d to affected joint(s) for pain/swelling 100 g 025 Active hydroCHLOROthiazi de (HYDRODiuril) 25 MG tabletIndications :Bilateral leg edema,Essential hypertension Take 1 tablet (25 mg) by mouth Once per day. 90 tablet 025 2025 Active fluticasone furoate (Arnuity Ellipta) 200 MCG/ACT inhalerIndication s:Moderate persistent asthma without complication Inhale 1 puff Once per day. Rinse mouth with water after use to reduce aftertaste and incidence of candidiasis. Do not swallow. 30 each Active Buprenorphine HCl-Naloxone HCl (Suboxone) 8-2 MG SL filmIndications:O pioid use disorder Place 1 Film under the tongue 3 times daily for 14 days. 42 Film 025 2024 Active albuterol (ProAir HFA) 108 (90 Base) MCG/ACT inhalerIndication s:Acute bronchitis, unspecified organism Inhale 2 puffs every 4 (four) hours if needed for shortness of breath or wheezing. 18 g 11 024 2024 Discontinued(R eorder (will not trigger notification to Pharmacy)) fluticasone furoate (Arnuity Ellipta) 100 MCG/ACT inhalerIndication s:Moderate persistent asthma with exacerbation Inhale 2 puffs Once per day. Rinse mouth with water after use to reduce aftertaste and incidence of candidiasis. Do not swallow. 1 each 024 2024 Discontinued(R eorder (will not trigger notification to Pharmacy)) amoxicillin (Amoxil) 500 MG capsule Take 1 tab po bid for 10 days 20 capsule 024 2024 Discontinued(T herapy completed) hydroCHLOROthiazi de 12.5 MG tabletIndications :Primary hypertension TAKE 1 TABLET BY MOUTH EVERY DAY IN THE MORNING 90 tablet 024 2024 Discontinued(D ose adjustment) omeprazole (PriLOSEC) [address] capsuleIndication s:Epigastric pain TAKE 1 CAPSULE BY MOUTH BEFORE BREAKFAST. DO NOT BREAK, CRUSH, DISSOLVE OR CHEW 90 capsule 024 2024 Discontinued Buprenorphine HCl-Naloxone HCl (Suboxone) 8-2 MG SL filmIndications:O pioid use disorder Place 1 Film under the tongue 3 times daily for 14 days. 42 Film 025 2024 Discontinued(R eorder (will not trigger notification to Pharmacy)) Buprenorphine HCl-Naloxone HCl (Suboxone) 8-2 MG SL filmIndications:O pioid use disorder Place 1 Film under the tongue 3 times daily for 14 days. 42 Film 025 2024 Discontinued(R eorder (will not trigger notification to Pharmacy)) Buprenorphine HCl-Naloxone HCl (Suboxone) 8-2 MG SL filmIndications:O pioid use disorder Place 1 Film under the tongue 3 times daily for 14 days. 42 Film 025 2024 Discontinued(R eorder (will not trigger notification to Pharmacy)) fluticasone furoate (Arnuity Ellipta) 100 MCG/ACT inhalerIndication s:Moderate persistent asthma without complication Inhale 2 puffs Once per day. Rinse mouth with water after use to reduce aftertaste and incidence of candidiasis. Do not swallow. 30 each 025 2024 Discontinued(D ose adjustment) Active Problems Problem Noted Date Diagnosed Date Chronic pain of both knees 05/02/2024 Sinusitis 12/31/2023 Assessment & Plan (12/31/2023 2:35 PM EDT): Moderate congestion on exam. Reports sins congestion and pressure x2 months. Denies previous abx treatment. Dicussed treating with abx today. -prescribed Amoxicillin 500 mg 12/31/23 -prescribed Fluticasone nasal spray 12/31/23 Constipation by delayed colonic transit 11/24/19 Primary osteoarthritis of right knee 11/24/2023 Allergic reaction 11/03/2023 Assessment & Plan (11/03/2023 3:14 PM EDT): Patient is here for a sick visit. Yesterday at around 4:00 PM she got stung by a bee. Pt describes redness around her right finger but no other symptoms. Around 9:00 PM she decided to take Ibuprofen for the pain despite the fact that she knew Ibuprofen had given her an allergic reaction in the past. Approximately 4 hours later ( 1:00 Am ) pt developed swelling of her lips and a burning sensation in her throat but no difficulty breathing and no sob, so she decided to present herself to the ER but left after she kept waiting. Today she tells me she is insure if her symptoms were a result of the bee sting or the Ibuprofen. Today her symptoms are almost completely resolved aside from the throat discomfort. Pt description of her symptoms seems suggestive of angiodema. Unclear if this was related to the bee sting, although the onset seems rather delayed, and the fact that she took Ibuprofen that has also caused similar symptoms in the past is confusing the picture. Given this, I think is appropriate to refer to an sustainability specialist she may require further testing. In the meantime I have recommended against the use of NSAIDS going forward and protect herself when outdoors. Since her symptoms are resolved no need for treatment at the moment. Pt has Zyrtec at home which she will continue to take. Abnormal nuclear stress test 08/05/2023 Acute bronchitis with chroni c obstructive pulmonary disease (COPD) ([facility]) 08/05/2023 History of left bundle branch block 08/05/2023 Dyspnea on exertion 08/05/2023 Gastroparesis 08/05/2023 History of heroin use 08/05/2023 LBBB (left bundle branch block) 08/05/2023 KENDRA (obstructive sleep apnea) 08/05/2023 PTSD (post-traumatic stress disorder) 02/26/2023 Assessment & Plan (10/06/2023 1:30 PM EDT): With trauma hx beginning in childhood (did not explore details), with flashbacks, nightmares, anxiety and hypervigilance. Auditory and visual hallucinations. Also appears to meet criteria for BPD, with mood swings, depression lasting several weeks alternating with hypomania and excessive energy. OCD features: Compulsive cleaning and handwashing. Opioid use disorder on Suboxone. Hx alcohol and tobacco, has been abstinent (x how long?). Today reports that Seroquel has caused nightmares as well as excessive daytime sedation, even with 1/2 tab of Seroquel 100 mg at bedtime. She karen stop the Seroquel. Instead she will start Risperidone 1 mg at bedtime. Since this provider will be retiring, pt will be referred to new [facility] Psychiatric provider. Pt is aware that appts will be via televisit and that provider will not be an [facility] employee. She gives permission to share PHI. Any issues or concerns, contact the health center. All her questions were answered and I have wished her well. She agrees with the plan. Assessment & Plan (04/28/2023 10:56 AM EST): With trauma hx beginning in childhood (did not explore details), with flashbacks, nightmares, anxiety and hypervigilance. Auditory and visual hallucinations. Also appears to meet criteria for BPD, with mood swings, depression lasting several weeks alternating with hypomania and excessive energy. OCD features: Compulsive cleaning and handwashing. Opioid use disorder on Suboxone, but not completely abstinent of heroin. Hx alcohol and tobacco, has been abstinent (x how long?). Has not taken Seroquel 50 mg consistently, but reports no problems with it and some improvement in sleep. Will now increase to Seroquel 100 mg at bedtime. Reviewed that this medication would help with sleep, but also with depression, anxiety, mood swings, and other symptoms. Urged to take it every night. On02/26/2023 provider informed pt that I would be retiring, but we would work to have her more stable by then and facilitate smooth transition of care. F/U with me in 1 month. She agrees with the plan. Assessment & Plan (02/26/2023 11:42 AM EST): With trauma hx beginning in childhood (did not explore details), with flashbacks, nightmares, anxiety and hypervigilance. Also appears to meet criteria for BPD, with mood swings, depression lasting several weeks alternating with hypomania and excessive energy. OCD features: Compulsive cleaning and handwashing. Opioid use disorder with good early response to Suboxone. Hx alcohol and tobacco, has been abstinent (x how long?). She reports no problems with starting dose of Seroquel 25 mg several months ago, but also no improvement. Will now re-start with Seroquel 50 mg at bedtime. Today 02/26/2023 provider informed pt that I would be retiring in approx 1/2 year, but we would work to have her more stable by then and facilitate smooth transition of care. F/U with me in 1 month. She agrees with the plan. Bipolar disorder 02/26/2023 Assessment & Plan (02/26/2023 11:43 AM EST): See note re PTSD. Epigastric pain 01/30/2023 01/30/2023 Helicobacter pylori (H. pylori) infection 202201/30/2023 Asthma 01/30/2023 Assessment & Plan (11/10/2023 3:00 PM EDT): Followup/ER precautions for worsening SOB, low O2 sats pulm referral for frequent exacerbations this year Assessment & Plan (01/30/2023 2:55 PM EST): Followup/ER precautions for worsening SOB, low O2 sats pulm referral for frequent exacerbations this year Depressive disorder 08/04/2022 Assessment & Plan (08/04/2022 11:19 AM EDT): With trauma hx beginning in childhood (did not explore details), with flashbacks, nightmares, anxiety and hypervigilance. Also appears to meet criteria for BPD, with mood swings, depression lasting several weeks alternating with hypomania and excessive energy. OCD features: Compulsive cleaning and handwashing. Opioid use disorder with good early response to Suboxone. Hx alcohol and tobacco, has been abstinent (x how long?). Reviewed that my objective was for her to feel more In control of her feelings and better able to manage her life. Medication management will be a process, so please be patient. Will start with Seroquel 25 mg at bedtime. Reviewed that Klonopin would not be appropriate as it is addictive and dangerous with opiates and Suboxone. She will also F/U with [facility] clinician Nilson and the supports of the [facility] program. F/U with me in 2-3 weeks. She agrees with the plan. 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 07/18/2022 Opioid abuse 07/02/2022 Tear of medial meniscus of knee 01/27/2020 01/30/2023 Anxiety 11/18/2017 Essential hypertension 09/03/2016 Moderate alcohol dependence 09/03/2016 Uncomplicated opioid dependence 09/03/2016 Panic disorder 09/03/2016 Tobacco dependence in remission 09/03/2016 Obesity 09/03/2016 01/30/2023 Encounters Date Type Department Care Team Description 05/06/[address] [address] Juani Sosa ANP [employer] (2 A4500 15-mmHg Black CT RTS L) 05/05/2024 Refill [facility] [address] [place] [address] Nalini Blum RN Opioid use disorder 05/02/2024 1:30 PM EST Office Visit [address] [address] Juani Sosa ANP Screening mammogram for breast cancer (Primary Dx); Moderate persistent asthma without complication; Bilateral leg edema; Screening for colon cancer; Chronic pain of both knees; Bilateral hand pain; Essential hypertension; Homeless; Screening for cervical cancer 05/02/2024 1:15 PM EST Office Visit [facility] [address] [place] [address] Jacoby Donald MD Uncomplicated opioid dependence (CMS/HCC) (Primary Dx) 05/02/2024 Travel 05/02/2024 Telephone [facility] [address] [place] [address] Nalini Blum RN 05/02/[address] [address] Juani Sosa ANP Epigastric pain 04/26/2024 Refill [facility] [address] [place] [address] Nalini Blum RN Opioid use disorder 04/20/2024 Patient Outreach [facility] [address] [place] [phone] Juani Sosa ANP Care Coordination (CHW outreach for SDOH housing search-referral completed ) 04/20/2024 Patient Outreach [facility] [address] [place] [address] Juani Sosa ANP Pre-visit Planning (SDOH Screening positive and Tobacco screening negative) 04/18/2024 2:15 PM EST Telemedicine [facility] [address] [place] [address] Jacoby Donald MD Uncomplicated opioid dependence (CMS/HCC) (Primary Dx) 04/18/2024 Travel 04/13/2024 Refill [facility] [address] [place] [address] Nalini Blum RN Opioid use disorder 03/28/2024 3:15 PM EST Telemedicine [facility] [address] [place] [address] Jacoby Donald MD Uncomplicated opioid dependence (CMS/HCC) (Primary Dx) 03/28/2024 Refill [facility] [address] [place] [address] Nalini Blum RN Opioid use disorder 03/28/2024 Refill [facility] [address] [place] [phone] Nalini Blum RN Opioid use disorder 03/28/2024 Travel 03/22/2024 Refill [facility] [address] [place] [phone] Nalini Blum RN Opioid use disorder 03/21/2024 2:45 PM EST Office Visit [facility] [address] [place] [phone] Jacoby Donald MD Uncomplicated opioid dependence (CMS/HCC) (Primary Dx) 03/21/2024 Patient Outreach [facility] [address] [place] [phone] Jom[facility] 03/21/2024 Travel 03/15/2024 Refill [facility] [place] [address] Nalini Blum RN Opioid use disorder 03/14/2024 1:30 PM EST Telemedicine [address] [place] [address] Jacoby Donald MD Uncomplicated opioid dependence (CMS/HCC) (Primary Dx) 03/14/2024 Travel 03/14/2024 Telephone [facility] [address] [place] [phone] Tanesha Shukla [place] March recall 03/08/2024 Refill [facility] [address] [place] [phone] Nalini Blum RN Opioid use disorder 03/07/2024 2:15 PM EST Telemedicine [address] [address] Jacoby Donald MD Uncomplicated opioid dependence (CMS/HCC) (Primary Dx) 03/07/2024 Travel 03/03/2024 Refill [facility] [address] [place] [address] Nalini Blum RN Opioid use disorder 02/29/2024 2:00 PM EST Telemedicine [facility] [address] [place], [place] [address] [address] Jacoby Donald MD Uncomplicated opioid dependence (CMS/HCC) (Primary Dx) 02/29/2024 Travel 02/23/2024 1:45 PM EST Office Visit [facility] [address] [place] [phone] Jacoby Donald MD Uncomplicated opioid dependence (CMS/HCC) (Primary Dx) 02/23/2024 Travel 02/23/2024 Refill [facility] [address] [place] [address] Nalini Blum RN Opioid use disorder 02/16/2024 Refill [facility] [address] [place] [address] Nalini Blum RN Opioid use disorder 02/15/2024 2:15 PM EST Clinical Support [facility] [address] [place] [phone] Nalini lBum RN Uncomplicated opioid dependence (CMS/HCC) (Primary Dx) 02/15/2024 Travel 02/11/2024 Refill [facility] [address] [place] [address] Nalini Blum RN Opioid use disorder 02/11/2024 Refill [facility] [address] [place] [address] Nalini Blum RN Opioid use disorder 02/09/2024 Refill [facility] [address] [place] [address] Nalini Blum RN Opioid use disorder 02/09/2024 Refill [facility] [address] [place] [address] Juani Sosa ANP Epigastric pain from Last 3 Months Immunizations Name Administration Dates Next Due Hep A / Hep B 06/04/2010,04/09/2010 Hep B, adult 01/09/2017 HepB-CpG 06/09/2023 Influenza injectable quadriv alent IIV4 with preservative 01/09/2017,01/24/2016 Influenza injectable quadrivalent preservative f ree 05/17/2019 Influenza, IIV3, injectable 01/01/2010, 6 Moderna Covid-19 Vaccine 12+ 07/24/2020 Pfizer Covid-19 Vaccine 12+ 11/01/2021, 2 Pfizer Covid-19 Vaccine 12+ jessica-sucrose ([place] C ap) 11/01/2021 Pneumococcal Polysaccharide PPSV23 08/19/2014 Rabies, IM Diploid Cell Culture 08/04/2022 Tdap 08/04/2022,01/01/2010 Zoster, Recombinant 06/09/2023 Family History Medical History Relation Name Comments Cancer Mother breast Relation Name Status Comments Mother Social History Tobacco Use Types Packs/Day Years Used Date Smoking Tobacco: Former Cigarettes Q uit: 01/21/2022 Smokeless Tobacco: Never Tobacco Cessation:Counseling Given: Not Answered Alcohol Use Standard Drinks/Week Comments Never 0 [...] with others, in a hotel, in a detention, living outside on the street, on a [...] Orientation Straight 01/20/2022 10 :14 AM EDT Last Filed Vital Signs Vital Sign Reading [...] Mass Index 40.97 05/02/2024 1:24 PM EST Plan of Treatment Upcoming Encounters Date Type Department Care Team (Late st Contact Info) Description 05/16/2024 2:45 PM EST Office Visit [address] [address] Jacoby Donald MD [address] [place] [address] 05/23/2024 2:45 PM EST Clinical Support [address] [address] Triny Brody, SIRISHA [address] [place] [phone] 06/07/2024 1:45 PM EDT Procedure Visit [address] [address] Chelsey Mckenzie, CNM [address] [place] [address] 08/04/2024 11:00 AM EDT Office Visit [address] [address] Juani Sosa ANP [address] [place] [address] Health Maintenance Due Date Last Done Comments CT Colonography 1966 Colonoscopy 1966 FIT DNA/Cologuard 1966 FIT 1966 Sigmoidoscopy 1966 Pap Smear 07/30/1987 Cervical Cancer Screening 1996 HPV/Cotest 1996 Hepatitis A Vaccines (3 of 3 - Hep A Twinrix risk 3-dose series) 11/04/2010 06/04/2010, 04/09/2010 Pneumococcal Vaccine: 50+ Years (2 of 2 - PCV) 08/20/2015 08/19/2014 Mammogram 04/13/2020 04/13/2018 Colorectal Cancer Screening 11/07/2020 FOBT 11/07/2020 11/08/2019 Zoster Vaccines (2 of 2) 08/04/2023 06/09/2023 Influenza Vaccine (#1) 2024 0, 01/09/2017, 01/24/2016, Additional history exists Postponed from 11/22/2023 (Patient Refused) Depression Monitoring (PHQ-9) 10/30/2024 05/02/2024, 05/02/2024 Lipid Panel 04/03/2025 04/03/2020 SDOH Screening 04/20/2025 04/20/2024 Alcohol/Substance Use Screening 05/02/2025 05/02/2024 COVID-19 Vaccine ( season) 2025 11/01/2021, 11/01/2021, 04/12/2021, Additional history exists Postponed from 11/22/2023 (Patient Refused) Depression Screening 05/02/2025 05/02/2024, 05/02/19 Tobacco Screening 05/02/2025 05/02/2024 DTaP/Tdap/Td Vaccines (3 - Td or Tdap) 08/04/2032 08/04/2022, 01/01/2010 RSV Patients and Patients Aged 60 years or older (1 - 1-dose 75+ series) 2041 HIV Screening Completed 04/03/2020 Hepatitis C Screening Completed 04/03/2020 Hepatitis B Vaccines Completed 06/09/2023, 01/09/2017, 06/04/2010, Additional history exists HIB Vaccines Aged Out No longer eligi ble based on patient's age to complete this topic HPV Vaccines Aged Out No longer eligi ble based on patient's age to complete this topic IPV Vaccines Aged Out No longer eligi ble based on patient's age to complete this topic Meningococcal Vaccine Aged Out No fany tao eligible based on patient's age to complete this topic RSV under 20 months Aged Out No longe r eligible based on patient's age to complete this topic Rotavirus Vaccines Aged Out No longer eligible based on patient's age to complete this topic Procedures Procedure Name Priority Date/Time Associated Diagnosis Comments POCT JENNY-14 URINE DRUG SCREEN Routine 05/02/2024 1:17 PM EST Uncomplicated opioid dependence (CMS/HCC) POCT JENNY-14 URINE DRUG SCREEN Routine 03/21/2024 2:41 PM EST Uncomplicated opioid dependence (CMS/HCC) POCT JENNY-14 URINE DRUG SCREEN Routine 02/23/2024 1:46 PM EST Uncomplicated opioid dependence (CMS/HCC) POCT JENNY-14 URINE DRUG SCREEN Routine 02/15/2024 2:11 PM EST Uncomplicated opioid dependence (CMS/HCC) LIPID PANEL, STANDARD Routine 04/03/2020 2:27 PM EST ZZZ HISTORICAL HEPATITIS C AB W/REFL TO HCV RNA, QN, PCR Routine 04/03/2020 2:26 PM EST HIV 1/2 ANTIGEN/ANTIBODY, FOURTH GENERATION W/RFL Routine 04/03/2020 2:26 PM EST OCCULT BLOOD, FECAL, IMMUNOASSAY Routine 11/08/2019 11:25 AM EDT BI MAMMOGRAM SCREENING BILATERAL Routine 04/13/2018 12:51 PM EST from Last 3 Months or Most Recently Relevant to Health Maintenance Results * POCT JENNY-14 Urine Drug Screen (05/02/2024 1:17 PM EST) Only the most recent of4 resultswithin the time period is included. THC Negative Cocaine Screen, Urine Negative Opiate [...] CARE TEST ENTER/EDIT OR DERABLES Final Result * (ABNORMAL) LIPID PANEL, STANDARD (04/03/2020 2:27 PM EST) Pathologist [facility] Chol/HDLC Ratio 3.5 <5.0 (calc) [facility] Cholesterol, Total 220(H) <200 mg/dL [facility] HDL Cholesterol 63 > OR = 50 mg/dL [facility] LDL Cholesterol 129(H) mg/dL (calc) [facility] Comment: Reference range: <100 ?? Desirable range <100 mg/dL for primary prevention; ?? <70 mg/dL for patients with CHD or diabetic patients ?? with > or = 2 CHD risk factors. ?? LDL-C is now calculated using the Faustino-Douglas ?? calculation, which is a validated novel method providing ?? better accuracy than the Friedewald equation in the ?? estimation of LDL-C. ?? Faustino SS et al. NICHOLAS. 2013;310(19): 2574-3605 ?? (http://education.[employer]/faq/UGD063) Non-HDL Cholesterol 157(H) <130 mg/dL (calc) [facility] Comment: For patients with diabetes plus 1 major ASCVD risk ?? factor, treating to a non-HDL-C goal of <100 mg/dL ?? (LDL-C of <70 mg/dL) is considered a therapeutic ?? option. Triglycerides 165(H) <150 mg/dL [facility] 04/03/2020 2:27 PM EST Syed Hardy MD LAB BLOOD ORDERABLES Final Resul t [facility] [address] * HEPATITIS C AB W/REFL TO HCV RNA, QN, PCR (04/03/2020 2:26 PM EST) Pathologist [facility] HEPATITIS C ANTIBODY NON-REACT BATSHEVA NON-REACT BATSHEVA [facility] INDEX 0.04 <1.00 [facility] Comment: ?? HCV antibody was non-reactive. There is no laboratory ?? evidence of HCV infection. ?? In most cases, no further action is required. However, if recent HCV exposure is suspected, a test for HCV RNA (test code 41545) is suggested. ?? For additional information please refer to http://[employer]/faq/FRP47x6 (This link is being provided for informational/ educational purposes only.) ?? 04/03/2020 2:26 PM EST Hyacinth Alvarez MD HISTORICAL/NON ORDERABLE LABS Fi nal Result Performing Organization Address [facility] Phone Number [facility] [address] [place] [address], * HIV 1/2 ANTIGEN/ANTIBODY,FOURTH GENERATION W/RFL (04/03/2020 2:26 PM EST) HIV-1/2 ANTIGEN AND ANTIBODIES, 4TH GENERATION W/ REFLEX NON-REACT BATSHEVA NON-REACT BATSHEVA [facility] Comment: HIV-1 antigen and HIV-1/HIV-2 antibodies were not detected. There is no laboratory evidence of HIV infection. ?? PLEASE NOTE: This information has been disclosed to you from records whose confidentiality may be protected by state law. ??If your state requires such protection, then the state law prohibits you from making any further disclosure of the information without the specific written consent of the person to whom it pertains, or as otherwise permitted by law. A general authorization for the release of medical or other information is NOT sufficient for this purpose. ? For additional information please refer to http://Alum.[employer]/faq/LTW350 (This link is being provided for informational/ educational purposes only.) ? The performance of this assay has not been clinically validated in patients less than 2 years old. ?? 04/03/2020 2:26 PM EST Hyacinth Alvarez MD LAB BLOOD ORDERABLES Final Resul t Performing Organization Address [facility] Phone Number [facility] [address] [place] [address], * (ABNORMAL) OCCULT BLOOD STOOL (11/08/2019 11:25 AM EDT) OCCULT BLOOD STOOL POS(AA) NEG [facility] 11/08/2019 11:2 5 AM EDT Historical Provider LAB BODY FLUIDS AND STOOL S ORDERABLES Final Result [facility] [address] * Req: Mammogram (Screening); Bilateral (04/13/2018 12:51 PM EST) Anatomical Region Laterality Modality Breast Bilateral Mammography 04/13/2018 12:5 1 PM EST Narrative 04/13/2018 12:53 PM EST Refer to the Notes tab for result details [facility] Procedure: Req: Mammogram (Screening); Bilateral Procedure Note Provider, Milton, - 06/14/2022 Refer to the Notes tab for result details [facility] Procedure: Req: Mammogram (Screening); Bilateral George Cano MD IMG BI PROCEDURES Final Resul t from Last 3 Months or Most Recently Relevant to Health Maintenance Insurance [facility] C3 Care Teams Device Repair Technician Relationship Specialty Start Date End Date Juani Sosa ANP [address] [place] [address] PCP - General Family Medicine 02/11/22 Lilian Varghese Customer Service Correspondence ClerkCustomer Retention Specialist 07/02/23
--- OUTSIDE RECORDS SUMMARY | 2024-05-11 02:43 | XMS_ITS | Encounter Summary ---
Author Organization [employer] Address 75 [facility] 7t [place] [address] Care Team Providers Care Framing Mill Operator Name Role Phone Juani Sosa Primary Care Provider [phone] Reason for Visit * Reason Onset Date Comments ER Follow-up 11/10/2023 Encounter Details Date Type Department Care Team ([facility] Contact Info) Description 11/10/2023 Telephone [facility] [address] [place], [place] [phone] Juani Sosa ANP 230 [place] [address] ER Follow-up Social History Tobacco Use Types Packs/Day Years [...] encounter Miscellaneous Notes * Telephone Encounter - Sean Arnold - 11/10/2023 9:40 AM EDT Patient calling to report ED visit on : Date: 11/09/23 Hospital: [facility] Seen for: Chest Pain, breathing trouble, and Leg swelling. Patient advised will forward to team nurse for follow up documented in this encounter Plan of Treatment Upcoming Encounters Date Type Department Care Team (Late st Contact Info) Description 05/16/2024 2:45 PM EST Office Visit [address] [address] Jacoby Donald MD [address] [place] [address] 05/23/2024 2:45 PM EST Clinical Support [address] [address] Triny Brody, SIRISHA [address] [place] [address] 06/07/2024 1:45 PM EDT Procedure Visit [facility] [address] [place] [address] Chelsey Mckenzie CNM [address] [place] [address] 08/04/2024 11:00 AM EDT Office Visit [facility] [address] [place] [address] Juani Sosa ANP [address] [place] [address] documented as of this encounter Visit Diagnoses Not on filedocumented in this encounter Additional Health Concerns Assessment Noted Time PHQ-9 Depression Total Score: 9 10/06/19 24 11:29 AM EDT documented as of this encounter Care Teams Framing Mill Operator Relationship Specialty Start Date End Date Juani oSsa ANP 230 [place] [address] PCP - General Family Medicine 02/11/22 Lilian Varghese Commander Police ReservesBlock Cableman 07/02/23 documented as of this encounter
--- OUTSIDE RECORDS SUMMARY | 2024-05-11 02:43 | XMS_ITS | Encounter Summary ---
Author Organization [facility] Address 75 [facility] 7t [place] [address] Care Team Providers Care Photo Cartographer Name Role Phone Juani Sosa Primary Care Provider [phone] Reason for Visit * Reason Onset Date Comments [facility] [employer] 05/06/2024 2 A4500 15-mmHg Black CT RTS L Encounter Details Date Type Department Care Team ([facility] Contact Info) Description 05/06/[address] [facility] MEDICINE 230 [place], [place] [phone] Juani Sosa ANP 230 [place] [address] [facility] [employer] (2 A4500 15-mmHg Black CT RTS L) Social History Tobacco Use Types Packs/Day Years [...] the past 12 months, has t he [email or web address], gas, oil or water [employer] threatened to shut off services in your [...] encounter Miscellaneous Notes * Telephone Encounter - Ailyn Alanis MA - 05/10/2024 11:26 AM EST Received forms below signed by PCP, I fax them back to [employer] and sent to scan. * Telephone Encounter - Duke Khan MA - 05/06/2024 11:18 AM EST Received medical necessity form from [employer] for 2 A4500 15-mmHg Black CT RTS L. Form has been filled out and placed on PCP's desk for their signature. documented in this encounter Plan of Treatment Upcoming Encounters Date Type Department Care Team ([facility] Contact Info) Description 05/16/2024 2:45 PM EST Office Visit [facility] [place] [address] Jacoby Donald MD 230 [place] [address] 05/23/2024 2:45 PM EST Clinical Support [facility] [place] [address] Triny Brody, SIRISHA [address] [facility] [place] [address] 06/07/2024 1:45 PM EDT Procedure Visit [facility] [place] [address] Chelsey Mckenzie CNM [address] [facility] [place] [address] 08/04/2024 11:00 AM EDT Office Visit [facility] [place] [address] Juani Sosa ANP [address] [facility] [place] [address] documented as of this encounter Visit Diagnoses Not on filedocumented in this encounter Additional Health Concerns Assessment Noted Time PHQ-9 Depression Total Score: 16 025 1:30 PM EST documented as of this encounter Care Teams Photo Cartographer Relationship Specialty Start Date End Date Juani Sosa ANP [facility] [place] [address] PCP - General Family Medicine 02/11/22 Lilian Varghese Fox RaiserPercolator Operator 07/02/23 documented as of this encounter
--- OUTSIDE RECORDS SUMMARY | 2024-05-11 02:43 | XMS_ITS | Encounter Summary ---
Author Organization [employer] [facility] Address [address] [facility] 7t [place] [address] Care Team Providers Care Jig Boring Machine Set Up Operator Name Role Phone Juani Sosa Primary Care Provider [phone] Encounter Details Date Type Department Care Team (Late st Contact Info) Description 05/02/2024 Telephone [facility] MEDICINE 230 [place] [address] Nalini Blum RN Social History Tobacco Use Types Packs/Day Years [...] with others, in a hotel, in a halfway, living outside on the street, on a [...] encounter Miscellaneous Notes * Telephone Encounter - Nalini Blum RN - 05/02/2024 10:02 AM EST Gaby called creative services writer today and said she has an appt with her PCP today and will likely not make itto the OBAT appt and requested Dr. Donald call her this afternoon. Airplane Flight Attendant asked her if she can come in after her PCP appt, but she again said Please have Dr. Barnett call me, and hung up the phone. documented in this encounter Plan of Treatment Upcoming Encounters Date Type Department Care Team (Late st Contact Info) Description 05/16/2024 2:45 PM EST Office Visit [facility] MEDICINE [address] [place] [address] Jacoby Donald MD 230 [place] [address] 05/23/2024 2:45 PM EST Clinical Support [facility] MEDICINE [address] [place] [address] Triny Brody RN 230 [place] [address] 06/07/2024 1:45 PM EDT Procedure Visit [facility]INE [address] [place] [address] Chelsey Mckenzie CNM 230 [place], [place] 08/04/2024 11:00 AM EDT Office Visit [address] [address] Juani Sosa ANP 230 [place] [address] documented as of this encounter Visit Diagnoses Not on filedocumented in this encounter Additional Health Concerns Assessment Noted Time PHQ-9 Depression Total Score: 16 025 1:30 PM EST documented as of this encounter Care Teams Jig Boring Machine Set Up Operator Relationship Specialty Start Date End Date Juani Sosa ANP [address] [place] [address] PCP - General Family Medicine 02/11/22 Lilian Varghese Bottle BlowerSecurity Officer Supervisor 07/02/23 documented as of this encounter
--- OUTSIDE RECORDS SUMMARY | 2024-05-11 02:43 | XMS_ITS | Encounter Summary ---
Author Organization [employer] Address 75 [facility] 7t [place] [address] Care Team Providers Care Defense Attorney Name Role Phone Juani Sosa Primary Care Provider [phone] Reason for Visit * Reason Onset Date Comments Med Refill 04/13/2024 Encounter Details Date Type Department Care Team (Late st Contact Info) Description 04/13/2024 Refill [facility] MEDICINE 230 [place] [address] Nalini Blum RN Opioid use disorder Social [...] Description 05/16/2024 2:45 PM EST Office Visit [address] [address] Jacoby Donald MD [address] [place] [address] 05/23/2024 2:45 PM EST Clinical Support [address] [address] Triny Brody, SIRISHA [address] [place] [address] 06/07/2024 1:45 PM EDT Procedure Visit [address] [address] Chelsey Mckenzie CNM [address] [place] [address] 08/04/2024 11:00 AM EDT Office Visit [address] [address] Juani Sosa ANP [address] [place] [address] documented as of this encounter Visit Diagnoses Diagnosis Opioid use disorder documented in this encounter Additional Health Concerns Assessment Noted Time PHQ-9 Depression Total Score: 9 10/06/19 24 11:29 AM EDT documented as of this encounter Care Teams Defense Attorney Relationship Specialty Start Date End Date Juani Sosa ANP 230 [place] [address] PCP - General Family Medicine 02/11/22 Lilian Varghese Therapeutic Program WorkerResearch Technologist 07/02/23 documented as of this encounter
--- OUTSIDE RECORDS SUMMARY | 2024-05-11 02:43 | XMS_ITS | Encounter Summary ---
Author Organization [employer] Address [address] [facility] [address] 7t [place] [address] Care Team Providers Care Academic Tutor Name Role Phone Juani Sosa BLANKA Primary Care Provider [phone] Reason for Visit * Reason Comments Med Change Request Encounter Details Date Type Department Care Team ([facility] Contact Info) Description 01/13/2023 Refill [facility] 230 [place], [place] [phone] Jacoby Donald MD 230 [place] [address] Social History Tobacco Use Types Packs/Day Years [...] Description 05/16/2024 2:45 PM EST Office Visit [address] [address] Jacoby Donald MD [address] [place] [address] 05/23/2024 2:45 PM EST Clinical Support [address] [address] Triny Brody, SIRISHA [address] [place] [address] 06/07/2024 1:45 PM EDT Procedure Visit [address] [address] Chelsey Mckenzie CNM [address] [place] [address] 08/04/2024 11:00 AM EDT Office Visit [address] [address] Juani Sosa ANP [address] [place] [address] documented as of this encounter Visit Diagnoses Not on filedocumented in this encounter Additional Health Concerns Assessment Noted Time PHQ-9 Depression Total Score: 16 023 9:58 AM EDT documented as of this encounter Care Teams Academic Tutor Relationship Specialty Start Date End Date Juani Sosa ANP [address] [place] [address] PCP - General Family Medicine 02/11/22 Lilian Varghese Electronic OperatorFinish Patcher 07/02/23 documented as of this encounter
--- OUTSIDE RECORDS SUMMARY | 2024-05-11 02:43 | XMS_ITS | Encounter Summary ---
Author Organization [employer] Address 75 [facility] 7t [place] [address] Care Team Providers Care Mortgage Originator Name Role Phone Juani Sosa Primary Care Provider [phone] Reason for Visit * Reason Comments Med Refill Encounter Details Date Type Department Care Team ([facility] st Contact Info) Description 05/02/2024 Refill [facility] MEDICINE 230 [place], [place] [phone] Juani Sosa ANP 230 [place], [place] [phone] Epigastric pain Social History Tobacco Use Types Packs/Day Years [...] with others, in a hotel, in a correction, living outside on the street, on a [...] Description 05/16/2024 2:45 PM EST Office Visit [address] [address] Jacoby Donald MD [address] [place] [address] 05/23/2024 2:45 PM EST Clinical Support [address] [address] Triny Brody, SIRISHA [address] [place] [address] 06/07/2024 1:45 PM EDT Procedure Visit [address] [address] Chelsey Mckenzie CNM [address] [place] [address] 08/04/2024 11:00 AM EDT Office Visit [facility] 230 [place] [address] Juani Sosa ANP 230 [place] [address] documented as of this encounter Visit Diagnoses Diagnosis Epigastric pain Abdominal pain, epigastric documented in this encounter Additional Health Concerns Assessment Noted Time PHQ-9 Depression Total Score: 16 025 1:30 PM EST documented as of this encounter Care Teams Mortgage Originator Relationship Specialty Start Date End Date Juani Sosa ANP 230 [place] [address] PCP - General Family Medicine 02/11/22 Lilian Varghese Manager Market IntelligenceMat Packer 07/02/23 documented as of this encounter
--- OUTSIDE RECORDS SUMMARY | 2024-05-11 02:43 | XMS_ITS | Encounter Summary ---
Author Organization [employer] Address 75 [facility] 7t [place] [address] Care Team Providers Care Kennel Operator Name Role Phone Juani Sosa Primary Care Provider [phone] Reason for Visit * Reason Comments Care Coordination CHW outreach for SDO H housing search-referral completed Encounter Details Date Type Department Care Team (Latest Contact Info) Description 04/20/2024 Patient Outreach [facility] MEDICINE 230 [place] [address] Juani Sosa ANP 230 [place] [address] Care Coordination (CHW outreach for SDOH housing search-referral completed ) Social History Tobacco Use Types Packs/Day Years [...] as of this encounter Progress Notes * Jad Charles - 04/20/2024 2:23 PM EST CHW Jad Charles, placed outbound call to patient for assistance with SDOH as a referral was received by the provider. Patient's name and were confirmed. Patient screened positive for the following SDOH food insecurities. Patient states family in on SNAP program at this time. CHW referral patient to the local list of pantries in the area for help. PT-1 requested was send out in behalf of patient for futures appt. Patient verbalizes understanding, and able to agree with plan to follow up.Patient educated on extended clinic hours on Mondays through Wednesdays, and Walk-In Urgent Care Located in [place]. Patient provided with after-hours line for [facility], , which offer night time triage service and option to transfer to director of consulting services provider if needed. documented in this encounter Plan of Treatment Upcoming Encounters Date Type Department Care Team (Late st Contact Info) Description 05/16/2024 2:45 PM EST Office Visit [address] [address] Jacoby Donald MD 230 [facility] [place] [address] 05/23/2024 2:45 PM EST Clinical Support [address] [address] Triny Brody, SIRISHA [address] [place] [address] 06/07/2024 1:45 PM EDT Procedure Visit [address] [address] Chelsey Mckenzie CNM [address] [place] [address] 08/04/2024 11:00 AM EDT Office Visit [address] [address] Juani Sosa ANP [address] [place] [address] documented as of this encounter Visit Diagnoses Not on filedocumented in this encounter Additional Health Concerns Assessment Noted Time PHQ-9 Depression Total Score: 9 10/06/19 24 11:29 AM EDT documented as of this encounter Care Teams Kennel Operator Relationship Specialty Start Date End Date Juani Sosa ANP [address] [place] [address] PCP - General Family Medicine 02/11/22 Lilian Varghese Etcher AircraftDrawing Kiln Operator 07/02/23 documented as of this encounter
--- OUTSIDE RECORDS SUMMARY | 2024-05-11 02:43 | XMS_ITS ---
Author Organization [facility] Address [address] [place], [place] [phone] Care Team Providers Care Traffic Sign Erection Supervisor Name Role Phone [facility] Primary Care Provider Tessie Dominguez Unavailable [phone] Housing, Search Unavailable Unavailable Encounters Encounter Location Date Provider Diagnosis [facility] [address] [place] [phone] 09/23/2023 Tessie Aldridge Plan Of Treatment No Information Progress Notes * GARZA, JonathanOB: 7 (58 yo F)Acc No.[id number]:09/23/2023 Case Management New Patient:?Gaby Garza Provider:?Tessie Aldridge :1965???Age:58 Y???Sex:Female D ate:09/23/2023 Address:[address] [place], [place] [phone] Pcp:[facility] Subjective: * Chief Complaints: * ??? * HPI: ???Social Service:?Referral Source?walk-in.?Interpretation for medical provider?housing.? Client came in seeking assistance with housing search client reports living in a room in [place] and the need to move due to deplorable conditions(mice and roaches, Mold) client was given a list of properties to apply to client reports being on a fixed income. Objective: Assessment: Plan: * Treatment: * Images: Billing Information: * Visit Code:? * Procedure Codes:? Care Plan Details* * Sign off status: Completed true * Provider:?Tessie Aldridge Date:? Generated for Shanti eldridge/Constantine/Yesy on:?05/11/2024 02:42 AM EST History and Physical Notes * HPI (History of Present Illness) Category Sub-Category Detail Notes Social Service Referral Source walk-in Interpretation for medical provider hous ing
--- OUTSIDE RECORDS SUMMARY | 2024-05-11 02:43 | XMS_ITS | Encounter Summary ---
Author Organization [employer] Address 75 [facility] 7t [place] [address] Care Team Providers Care Car Salter Name Role Phone Juani Sosa Primary Care Provider [phone] Encounter Details Date Type Department Care Team (Latest Contact Info) Description 05/02/2024 Travel Social History Tobacco Use Types Packs/Day [...] with others, in a hotel, in a half-way, living outside on the street, on a [...] Description 05/16/2024 2:45 PM EST Office Visit [address] [address] Jacoby Donald MD [address] [place] [address] 05/23/2024 2:45 PM EST Clinical Support [address] [address] Triny Brody, RN [address] [place] [address] 06/07/2024 1:45 PM EDT Procedure Visit [address] [address] Chelsey Mckenzie CNM [address] [place] [address] 08/04/2024 11:00 AM EDT Office Visit [address] [address] Juani Sosa ANP [address] [place] [address] documented as of this encounter Visit Diagnoses Not on filedocumented in this encounter Additional Health Concerns Assessment Noted Time PHQ-9 Depression Total Score: 16 025 1:30 PM EST documented as of this encounter Care Teams Car Salter Relationship Specialty Start Date End Date Juani Sosa ANP 230 [place] [address] PCP - General Family Medicine 02/11/22 Lilian Varghese Sink MakerBonding Supervisor 07/02/23 documented as of this encounter
--- OUTSIDE RECORDS SUMMARY | 2024-05-11 02:43 | XMS_ITS | Encounter Summary ---
Author Organization [employer] Address [address] [facility] [address] 7[address] [place] [address] Care Team Providers Care Proofer Prepress Name Role Phone Juani Sosa Primary Care Provider [phone] Reason for Visit * Reason Comments Med Change Request Encounter Details Date Type Department Care Team ([facility] Contact Info) Description 08/05/2023 Refill [facility] [address] [place] [address] Leeanne Mandel FNP Moderate persistent asthma with acute exacerbation Social History Tobacco Use Types Packs/Day Years [...] encounter Miscellaneous Notes * Telephone Encounter - MIGEL Quintana - 08/05/2023 6:22 PM EDT Already responded by other means documented in this encounter Plan of Treatment Upcoming Encounters Date Type Department Care Team (Late st Contact Info) Description 05/16/2024 2:45 PM EST Office Visit [address] [address] Jacoby Donald MD [address] [place] [address] 05/23/2024 2:45 PM EST Clinical Support [address] [address] Triny Brody, SIRISHA [address] [place] [address] 06/07/2024 1:45 PM EDT Procedure Visit [address] [address] Chelsey Mckenzie CNM [address] [place] [address] 08/04/2024 11:00 AM EDT Office Visit [address] [address] Juani Sosa, BLANKA [address] [place] [address] documented as of this encounter Visit Diagnoses Diagnosis Moderate persistent asthma with acute exacerbation documented in this encounter Additional Health Concerns Assessment Noted Time PHQ-9 Depression Total Score: 10 024 10:06 AM EST documented as of this encounter Care Teams Proofer Prepress Relationship Specialty Start Date End Date Juani Sosa ANP [address] [place] [address] PCP - General Family Medicine 02/11/22 Lilian Varghese Cut Off Saw Set Up OperatorCentral Supply Technician Supervisor 07/02/23 documented as of this encounter
--- NOTE | 2024-05-11 05:11 | PC.NURSE ---
ambulated steadily with cane to bathroom with standby assist. back in bed now with call grossman in reach
[2024-05-11 05:13] VITALS: BP 101/63; PULSE 75; RESP 20; TEMP 36.6; O2SAT 93
[2024-05-11 05:39] LABS: Troponin-I High Sensitivity < 2.7 ng/L (<3.5-17.0)
[2024-05-11 06:42] VITALS: BP 117/63; PULSE 69; RESP 18; TEMP 36.6; O2SAT 94
== END 2024-05-11 06:47 | disposition home or self-care (01) ==
PROVIDERS: Emergency Provider Emergency Medicine; PCP Family Medicine
DX: R07.89 Other chest pain (principal); J02.9 Acute pharyngitis, unspecified; Z03.818 Encounter for observation for suspected exposure to other biological agents ruled out; J45.909 Unspecified asthma, uncomplicated; I10 Essential (primary) hypertension; I44.7 Left bundle-branch block, unspecified; Z87.891 Personal history of nicotine dependence
CPT/HCPCS: 0241U; 36415; 71045; 80053; 84484; 85025; 87651; 93005; 99283; 99285

== ENCOUNTER → 2024-05-11 01:15 | Outpatient (BNV) | payer MEDICAID, SELFPAY | PROVIDERS: Emergency Provider Emergency Medicine; PCP Family Medicine; Visit Provider Internal Medicine | DX: I44.7 Left bundle-branch block, unspecified (principal) | CPT/HCPCS: 93010 ==

== ENCOUNTER → 2024-05-11 04:10 | Outpatient (BNV) | payer MEDICAID, SELFPAY | PROVIDERS: Emergency Provider Emergency Medicine; PCP Family Medicine; Visit Provider Radiology Diagnostic Radiology | DX: R07.9 Chest pain, unspecified (principal) | CPT/HCPCS: 71045 ==

== ENCOUNTER 2024-06-16 13:51 | Outpatient (AMB) | payer MEDICAID, SELFPAY ==
[2024-06-16 13:56] VITALS: BMI 41.7
--- NOTE | 2024-06-16 13:56 | MHC.OFFVIS ---
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 Pt states swelling is bad consistantly, does not worsen or improve w/ elevation. Pt states it started 3 years ago. Oracle Fusion Middleware Developer Required: No Accompanied by: Self / Same As Patient Allergies lisinopril Allergy (Severe, Verified 06/16/24 14:01) Angioedema hydroxyzine [HYDROXYZINE] Adverse Reaction (Intermediate, Verified 06/16/24 14:01) reports redness and swelling HPI HPI [facility]/HHC referral for : Details: Gaby, a pleasant 58 yo female patient, is presenting today on referral from her PCP for ongoing bilateral lower extremity swelling. Complaints include pain, swelling of lower extremities, cramping, fatigue, and heaviness of the lower extremities. It has been affecting their daily activities including walking, standing, and physical activity It is noted equally in bilateral legs. She currently utilizes a rollator to ambulate. She is a nonsmoker and not a diabetic. She states this swelling has been going on for >3y, worsening over the last year. She denies any injuries or wounds. She states she has bilateral knee pain and will need a knee replacement at some point. Patient denies any previous venous surgery or injections. Patient denies any history of DVT/ PE. Patient denies any history of phlebitis. Trial of compression includes - elevation and compression stockings; she states compression stockings help more They now present for vascular evaluation regarding their varicose veins. [facility] Medical History Left against medical advice Angioedema History of fatty infiltration of liver History of alcohol dependence History of heroin use Chronic knee pain Chronic back pain History of seizure History of panic disorder History of opioid abuse Depression HTN (hypertension) History of left bundle branch block (LBBB) Migraine Anxiety Asthma Surgical History Hx of exploratory laparotomy Hx of colonoscopy Family History Mother Heart disease Arthritis HTN (hypertension) Social History Household Members: None Housing: House Do you presently have visiting nurse or other home services: No Alcohol intake: current Alcohol intake frequency: holidays/special occasions only Patient Tobacco Use Status: Former Tobacco user Years Smoked: 10 +/- Substance Use Type: Inhalants service: No Current occupational status: unemployed Review of Systems Const Reports as per HPI and Denies weakness ENT Reports Normal hearing present and Denies dizziness Card Reports as per HPI, Denies chest pain, Denies chest pain at rest, Denies chest pain with activity, Denies dyspnea and Denies dyspnea on exertion Resp Reports as per HPI, Denies cough, Denies dyspnea and Denies dyspnea on exertion GI Reports as per HPI, Denies abdominal pain, Denies nausea and Denies vomiting Musc Denies numbness Skin/Breast Reports as per HPI, Denies erythema and Denies wounds Neuro Reports Normal hearing present, Denies dizziness, Denies numbness, Denies Sensory deficit (Neuro) and Denies weakness Psych Reports no additional complaints Endo Reports no additional complaints Physical Exam Vital Signs: BMI result Body Mass Index 41.7 Const General: healthy appearing and no acute distress Orientation/consciousness: patient oriented x3 HEENT Head: Yes normal to inspection Ears: hearing grossly normal bilaterally Mouth: Normal oral and palatal mucosa present Resp Effort & Inspection: normal respiratory effort and able to speak in complete sentences Auscultation: clear to auscultation bilaterally Cardio Jugular venous distension: no JVD Rate: regular rate Rhythm: regular rhythm Heart sounds: S1 normal heart sound present and S2 normal heart sound present Bruits: no abdominal aortic bruits, no carotid bruits, no femoral bruits and no renal bruits Peripheral pulses: Peripheral pulses 2+ throughout GI Inspection: Yes normal to inspection Palpation (GI): No Abdominal aortic bruit present Skin General skin exam: no rashes or lesions noted Wounds: no wounds Hair: normal Neuro General: patient oriented x3 Cranial nerves: Yes Normal hearing present Cognition (Neuro): normal cognition Gait exam (Neuro): Normal gait present Motor exam (neuro): 5/5 motor strength present throughout Sensory Exam: No Sensory deficit (Neuro) Extrem Other: Bilateral lower extremities: +2 pitting edema. Slight discoloration noted around the ankles and into her feet. Palpable DP pulses. CEAP: C - 3/4 E - primary A - superficial P - reflux General: Yes normal to inspection, Yes full ROM, Yes capillary refill normal and Yes normal gait Assessment & Plan Assessment & Plan (1) Varicose veins of both lower extremities with inflammation: Code(s): I83.11 - Varicose veins of right lower extremity with inflammation; I83.12 - Varicose veins of left lower extremity with inflammation Category: Medical Plan: Gaby is presenting today on a referral from her PCP for bilateral lower extremity swelling. She states this has been going on for over 3y but worsening over the last year. She does wear compression socks daily, which helps a little, and elevates her legs as much as possible. I discussed with her that we are not able to do much with the knee pain. In short, the patient has evidence of venous insufficiency. I have discussed the pathophysiology with the patient. In addition I have provided informational material regarding venous disease to the patient. We have discussed conservative measures including compression, elevation, and exercise. We were able to provide her with compression socks today to wear and discussed to wear them 8-12h/day. I have taken the liberty of ordering venous insufficiency testing with the patient. They will follow up with me after testing. The patient had an opportunity to ask questions regarding the treatment plan. All questions were answered. Imaging studies, laboratory studies and physical exam results were discussed and reviewed in detail. No major barriers to understanding were identified. The patient expressed understanding and agreement with the above treatment plan. The patient is aware they should contact our office by phone for worsening of the current condition or the appearance of new symptoms. Thank you for allowing me to participate in the vascular care of this patient. If you have any questions or concerns regarding the treatment for the above condition please do not hesitate to contact me. The office telephone contact is [phone]. This note is constructed using voice recognition software. While every effort has been made to ensure accuracy, field project manager errors may have been included. Thank you for allowing me to participate in the care of your patient. Yours sincerely, JAMEY Jimenez Orders: Orders US venous duplex LE BI 1 Week I83.11 - Varicose veins of right lower extremity with inflammation, I83.12 - Varicose veins of left lower extremity with inflammation Coding Level of Care Code New Pt Level 4 (70788) Diagnoses Varicose veins of both lower extremities with inflammation I83.11; I83.12
--- OUTSIDE RECORDS SUMMARY | 2024-06-16 17:20 | XMS_ITS | Encounter Summary ---
Author Organization [employer] Address [address] [facility] 7t [place] [address] Care Team Providers Care Assembler Corncob Pipes Name Role Phone Juani Sosa Primary Care Provider [phone] Reason for Visit * Reason Onset Date Comments Durable Medical Equipment 02/17/2023 Edvin Encounter Details Date Type Department Care Team ([facility] Contact Info) Description 02/17/2023 Telephone [facility] [address] [place], [place] [phone] Juani Sosa ANP [address] [place] [address] Durable Medical Equipment (Walker) Social History Tobacco [...] Walker states requested back in November however engineering writer does not see it on patients chart. documented in this encounter Plan of Treatment Upcoming Encounters Date Type Department Care Team (Late st Contact Info) Description 07/04/2024 1:30 PM EDT Telemedicine [facility] [address] [place] [address] Jacoby Donald MD [address] [place] [address] 08/04/2024 11:00 AM EDT Office Visit [facility] [address] [place] [address] Juani Sosa ANP [address] [place] [address] documented as of this encounter Visit Diagnoses Not on filedocumented in this encounter Additional Health Concerns Assessment Noted Time PHQ-9 Depression Total Score: 16 023 9:58 AM EDT documented as of this encounter Care Teams Assembler Corncob Pipes Relationship Specialty Start Date End Date Juani Sosa ANP [address] [place] [address] PCP - General Family Medicine 02/11/22 Lilian Varghese Accreditation SpecialistTag Writer 07/02/23 documented as of this encounter
--- OUTSIDE RECORDS SUMMARY | 2024-06-16 17:20 | XMS_ITS | Encounter Summary ---
Author Organization [employer] Address [address] [facility] 7t [place] [address] Care Team Providers Care Wet End Operator Name Role Phone Juani Sosa Primary Care Provider [phone] Reason for Visit * Reason Onset Date Comments Med Refill 05/17/2024 Encounter Details Date Type Department Care Team ([facility] st Contact Info) Description 05/17/2024 Refill [facility] [address] [place] [address] Nalini Blum RN Opioid use disorder Social [...] Date Recorded Patient Health Questionnaire-9 Score 16 05/17/2024 Patient Health Questionnaire-9 Score 16 05/17/2024 Last PHQ-9: Questionnaire Data Not on file 0 05/17/2024 Housing Stability Answer Date Recorded What is your housing situation today? I do not have housing (Staying with others, in a hotel, in a retirement, living outside on the street, on a [...] Date Recorded Patient Health Questionnaire-2 Score 4 05/17/2024 Internet Access Answer Date Recorded Internet Access [...] Info) Description 07/04/2024 1:30 PM EDT Telemedicine [facility] [address] [place] [address] Jacoby Donald MD [address] [place] [address] 08/04/2024 11:00 AM EDT Office Visit [facility] [address] [place] [address] Juani Sosa ANP [address] [place] [address] documented as of this encounter Visit Diagnoses Diagnosis Opioid use disorder documented in this encounter Additional Health Concerns Assessment Noted Time PHQ-9 Depression Total Score: 16 025 11:09 AM EST documented as of this encounter Care Teams Wet End Operator Relationship Specialty Start Date End Date Juani Sosa ANP [address] [place] [address] PCP - General Family Medicine 02/11/22 Lilian Varghese Lead Retail Sales AssociateDirector Radiation Oncology 07/02/23 documented as of this encounter
--- OUTSIDE RECORDS SUMMARY | 2024-06-16 17:20 | XMS_ITS | Encounter Summary ---
Author Organization [employer] Address [address] [facility] 7t [place] [address] Care Team Providers Care Rug Inspector Name Role Phone Juani Sosa Primary Care Provider [phone] Encounter Details Date Type Department Care Team ([facility] st Contact Info) Description 06/03/2024 Population Health Risk Score [facility] (C3) Department [address] [phone] Provider, Population Health Generic Social History Tobacco Use Types Packs/Day Years [...] with others, in a hotel, in a [place] [facility] [place], living outside on the street, on a [...] Info) Description 07/04/2024 1:30 PM EDT Telemedicine [facility] [address] [place] [address] Jacoby Donald MD [address] [place] [address] 08/04/2024 11:00 AM EDT Office Visit [facility] [address] [place] [address] Juani Sosa ANP [address] [place] [address] documented as of this encounter Visit Diagnoses Not on filedocumented in this encounter Additional Health Concerns Assessment Noted Time PHQ-9 Depression Total Score: 16 025 11:09 AM EST documented as of this encounter Care Teams Rug Inspector Relationship Specialty Start Date End Date Juani Sosa ANP [address] [place] [address] PCP - General Family Medicine 02/11/22 Lilian Varghese Tank Terminal GaugerDigital Production Operator 07/02/23 documented as of this encounter
--- OUTSIDE RECORDS SUMMARY | 2024-06-16 17:20 | XMS_ITS | Encounter Summary ---
Author Organization [employer] Address [address] [facility] [address] [address] 7[address] [place] [address] Care Team Providers Care Drilling Field Specialist Name Role Phone Juani Sosa Primary Care Provider [phone] Reason for Visit * Reason Onset Date Comments Med Refill Appointment 09/10/2023 [facility] Encounter Details Date Type Department Care Team (Late st Contact Info) Description 09/10/2023 Refill [facility] [address] [place] [address] Rafael Shahid FNP Social History Tobacco Use [...] prescriber. Abhi-schedule an apt for 10/06/23 as [id number] documented in this encounter Plan of Treatment Upcoming Encounters Date Type Department Care Team (Late st Contact Info) Description 07/04/2024 1:30 PM EDT Telemedicine [facility] [address] [place] [address] Jacoby Donald MD [address] [place] [address] 08/04/2024 11:00 AM EDT Office Visit [facility] [address] [place] [address] Juani Sosa ANP [address] [place] [address] documented as of this encounter Visit Diagnoses Not on filedocumented in this encounter Additional Health Concerns Assessment Noted Time PHQ-9 Depression Total Score: 10 024 10:06 AM EST documented as of this encounter Care Teams Drilling Field Specialist Relationship Specialty Start Date End Date Juani Sosa ANP [address] [place] [address] PCP - General Family Medicine 02/11/22 Lilian Varghese PodiatristVoice Data Communications Engineer 07/02/23 documented as of this encounter
--- OUTSIDE RECORDS SUMMARY | 2024-06-16 17:20 | XMS_ITS ---
Author Organization [facility] Address [address] [place], [place] [phone] Care Team Providers Care Catalogue Librarian Name Role Phone [facility] Primary Care Provider Tessie Dominguez Unavailable Housing, Search Unavailable Unavailable Encounters Encounter Location Date Provider Diagnosis [facility] [address] [place] [phone] 09/23/2023 Tessie Aldridge Plan Of Treatment No Information Progress Notes * GARZAJazzmine MCDONALDKeithOB: 7 (58 yo F)Acc No.[id number]:09/23/2023 Case Management New Patient:?Gaby Garza Provider:?Tessie Aldridge :1965???Age:58 Y???Sex:Female D ate:09/23/2023 Address:[address] [place], [place] [phone] Pcp:[facility] Subjective: * Chief Complaints: * ??? * HPI: ???Social Service:?Referral Source?walk-in.?Interpretation for medical provider?housing.? Client came in seeking assistance with housing search client reports living in a room in [place] and the need to move due to deplorable conditions(mice and roaches, Mold) client was given a list of properties to apply to client reports being on a fixed income. Objective: Assessment: Plan: * Treatment: * Images: Billing Information: * Visit Code:? * Procedure Codes:? Care Plan Details* * Sign off status: Completed true * Provider:?Tessie Aldridge Date:? Generated for Shnati eldridge/Constantine/Yesy on:?06/16/2024 05:20 PM EDT History and Physical Notes * HPI (History of Present Illness) Category Sub-Category Detail Notes Social Service Referral Source walk-in Interpretation for medical provider hous ing
--- OUTSIDE RECORDS SUMMARY | 2024-06-16 17:20 | XMS_ITS | Encounter Summary ---
Author Organization [employer] Address [address] [address] [place] [address] Care Team Providers Care Woodworking Machine Offbearer Name Role Phone Juani Sosa Primary Care Provider [phone] Encounter Details Date Type Department Care Team (Latest Contact Info) Description 06/13/2024 2:30 PM EDT Telemedicine [facility] [address] [place], [place] [phone] Jacoby Donald MD [address] [place] [address] Uncomplicated opioid dependence (CMS/HCC) (Primary Dx) Social [...] with others, in a hotel, in a alf, living outside on the street, on a [...] Progress Notes * Jacoby Donald MD - 06/13/2024 2:30 PM EDT Subjective Patient ID: Gaby [place] is a 58 y.o. female. HPI Patient on current Suboxone dose of 24/6 mg. Increased visit interval to 3 week schedule starting 07/04. Induction date: 07/08/22. LFT's: 10/25/2023 Hep A status: pending (prev fully Iz'd) Hep B status: pending (prev fully Iz'd) Hep C status: pending HIV status: pending Covid Vaccine status: Psych provider: pending Therapist: Nilson MENDOZA reviewed by provider. Last PCP appt: 11/24/23 [facility] reviewed. UTOX: + bup States that orthopedic surgeon told her that she needs to be free of illicit substances for 1 year before he will schedule knee replacement surgery, which would be about 12/2024. Had 3rd knee injections done 02/01/2024, states minimal pain relief. did not take any oxycodone recently; knee pain has slightly improved, possibly because she no longer needs to climb stairs to get to her apartment. Has rented friend's room in [place] from Feb to end of May 2024. has appointment for her own apartment in [place]; will let us know. Jocedest son is scheduled to have neurosurgery in [place] due to ?aneurysm. Her daughter from [place] will be driving her there. Labs done 10/25/2023. No constipation. Quit smoking 01/2022 Has 3 sons, montez is in psychiatric residential program, one lives in [place] and one in [place]. Has 2 daughters, one is disabled and lives with her grandmother in [place], and one lives in [place] and works at [employer] in [place]. Patient gave verbal consent to be seen in this manner. A complete assessment and plan is detailed in the note, all of which were conducted remotely using virtual technology. Patient identity was verbally confirmed with 2 identifiers at the start of the visit. [facility] Provider was located in the clinic during the visit. The following portions of the chart were reviewed this encounter and updated as appropriate: Review of Systems Constitutional: Negative for fever. Respiratory: Negative for shortness of breath. Cardiovascular: Negative for chest pain. Gastrointestinal: Negative for abdominal pain. Skin: Negative for rash. Neurological: Negative for headaches. Objective Physical Exam Procedures Assessment/Plan Diagnoses and all orders for this visit: Uncomplicated opioid dependence ([facility]) Recovery support, harm reduction (including Narcan) and behavioral health attendance reviewed. Continue Suboxone 24/6 mg; visit interval increased to 3 week schedule. documented in this encounter Plan of Treatment Upcoming Encounters Date Type Department Care Team (Late st Contact Info) Description 07/04/2024 1:30 PM EDT Telemedicine [facility] [address] [place] [address] Jacoby Donald MD [address] [place] [address] 08/04/2024 11:00 AM EDT Office Visit [facility] [address] [place] [address] Junai Sosa ANP [address] [place] [address] documented as of this encounter Visit Diagnoses Diagnosis Uncomplicated opioid dependence (CMS/HCC)- Primary documented in this encounter Additional Health Concerns Assessment Noted Time PHQ-9 Depression Total Score: 16 025 11:09 AM EST documented as of this encounter Care Teams Woodworking Machine Offbearer Relationship Specialty Start Date End Date Juani Sosa ANP [address] [place] [address] PCP - General Family Medicine 02/11/22 Lilian Varghese Flower Buncher Or PickerPainter Drum 07/02/23 documented as of this encounter
--- OUTSIDE RECORDS SUMMARY | 2024-06-16 17:20 | XMS_ITS | Encounter Summary ---
Author Organization [employer] Address [address] [facility] [address] 7t [place] [address] Care Team Providers Care Precinct Captain Name Role Phone Juani Sosa Primary Care Provider [phone] Reason for Visit * Reason Comments Med Change Request Encounter Details Date Type Department Care Team ([facility] Contact Info) Description 08/05/2023 Refill [facility] [address] [place] [address] Leeanne Mandel FNP Moderate persistent asthma with [...] 07/04/2024 1:30 PM EDT Telemedicine [facility] [address] [place] [address] Jacoby Donald MD [address] [place] [address] 08/04/2024 11:00 AM EDT Office Visit [facility] [address] [place] [address] Juani Sosa ANP [address] [place] [address] documented as of this encounter Visit Diagnoses Diagnosis Moderate persistent asthma with acute exacerbation documented in this encounter Additional Health Concerns Assessment Noted Time PHQ-9 Depression Total Score: 10 024 10:06 AM EST documented as of this encounter Care Teams Precinct Captain Relationship Specialty Start Date End Date Juani Sosa ANP [address] [place] [address] PCP - General Family Medicine 02/11/22 Lilian Varghese Value EngineerInsurance Claim Approver 07/02/23 documented as of this encounter
--- OUTSIDE RECORDS SUMMARY | 2024-06-16 17:20 | XMS_ITS | Encounter Summary ---
Author Organization [employer] Address [address] [facility] 7t [place] [address] Care Team Providers Care Assistant Professor Of Drama Name Role Phone Juani Sosa Primary Care Provider [phone] Reason for Visit * Reason Onset Date Comments ER Follow-up 11/10/2023 Encounter Details Date Type Department Care Team ([facility] Contact Info) Description 11/10/[address] [facility] 230 [place], [place] [phone] Juani Sosa ANP 230 [place] [address] ER Follow-up Social History Tobacco Use Types [...] ED visit on : Date: 11/09/23 Hospital: [facility] Seen for: Chest Pain, breathing trouble, and Leg swelling. Patient advised will forward to team nurse for follow up documented in this encounter Plan of Treatment Upcoming Encounters Date Type Department Care Team (Late st Contact Info) Description 07/04/2024 1:[address] [facility] [address] [place] [address] Jacoby Donald MD [address] [place] [address] 08/04/2024 11:00 AM EDT Office Visit [facility] [address] [place] [address] Juani Sosa ANP [address] [place] [address] documented as of this encounter Visit Diagnoses Not on filedocumented in this encounter Additional Health Concerns Assessment Noted Time PHQ-9 Depression Total Score: 9 10/06/19 24 11:29 AM EDT documented as of this encounter Care Teams Assistant Professor Of Drama Relationship Specialty Start Date End Date Juani Sosa ANP 230 [place] [address] PCP - General Family Medicine 02/11/22 Lilian Varghese Billet WorkerBellows Charger Assembler 07/02/23 documented as of this encounter
--- OUTSIDE RECORDS SUMMARY | 2024-06-16 17:20 | XMS_ITS | Encounter Summary ---
Author Organization [employer] Address [address] [facility] 7t [place] [address] Care Team Providers Care Oracle Soa Developer Name Role Phone Juani Sosa Primary Care Provider [phone] Reason for Visit * Reason Onset Date Comments Med Refill 06/13/2024 Encounter Details Date Type Department Care Team ([facility] st Contact Info) Description 06/13/2024 Refill [facility] 230 [place] [address] Nalini Blum RN Opioid use disorder Social [...] with others, in a hotel, in a intermediate, living outside on the street, on a [...] Info) Description 07/04/2024 1:30 PM EDT Telemedicine [facility] [address] [place] [address] Jacoby Donald MD [address] [place] [address] 08/04/2024 11:00 AM EDT Office Visit [facility] [address] [place] [address] Juani Sosa ANP [address] [place] [address] documented as of this encounter Visit Diagnoses Diagnosis Opioid use disorder documented in this encounter Additional Health Concerns Assessment Noted Time PHQ-9 Depression Total Score: 16 025 11:09 AM EST documented as of this encounter Care Teams Oracle Soa Developer Relationship Specialty Start Date End Date Juani Sosa ANP [address] [place] [address] PCP - General Family Medicine 02/11/22 Lilian Varghese Children'S Ministry DirectorElectric Motor Tester Assembler 07/02/23 documented as of this encounter
--- OUTSIDE RECORDS SUMMARY | 2024-06-16 17:20 | XMS_ITS | Encounter Summary ---
Author Organization [email or web address] Address [address] [place] [address] 7t [place] [address] Care Team Providers Care Structural Layout Worker Name Role Phone Juani Sosa Primary Care Provider Reason for Visit * Reason Comments OBAT F/U Encounter Details Date Type Department Care Team (Latest Contact Info) Description 05/30/2024 2:45 PM EDT Office Visit [facility] 230 [place], [place] [phone] Jacoby Donald MD 230 [place], [place] [phone] Uncomplicated opioid dependence (CMS/HCC) (Primary Dx) Social [...] with others, in a hotel, in a group home, living outside on the street, on [...] Progress Notes * Jacoby Donald MD - 05/30/2024 2:45 PM EDT Subjective Patient ID: Gaby Arteaga is a 58 y.o. female. HPI Patient on current Suboxone dose of 24/6 mg. Visit interval was increased to 2 week schedule on 03/28/2024; will increase visit interval to 3 weekschedule at next visit 06/13 if doing OK. Patient has been in the program for 1 year, 10 months Induction date: 07/08/22. LFT's: 10/25/2023 Hep A [...] climb stairs to get to her apartment. Eldest son is scheduled to have neurosurgery in [place] due to ?aneurysm. Her daughter from [place] will be driving her there. Has rented friend's room in [place] from Feb to end May 2024. Gaby applied for an apartment with housing location service on [address] Labs done 10/25/2023. No constipation. Quit smoking 01/2022 Has 3 sons, catherinedest is in psychiatric residential program, one lives in [place] and one in [place]. Has 2 daughters, one is disabled and lives with her grandmother in [place], and one lives in [place] and works at [employer] in [place]. The following portions of the chart were reviewed this encounter and updated as appropriate: Tobacco Allergies Meds Problems Med Hx Surg Hx Fam Hx Review of Systems Constitutional: Negative for fever. Respiratory: Negative for shortness of breath. Cardiovascular: Negative for chest pain. Gastrointestinal: Negative for abdominal pain. Musculoskeletal: Positive for arthralgias. Skin: Negative for rash. Neurological: Negative for [...] orders for this visit: Uncomplicated opioid dependence (CMS/[facility]) Recovery support, harm reduction (including Narcan) and behavioral health attendance reviewed. Continue Suboxone 24/6 mg on 2 week schedule. Will increase visit interval to 3 week schedule at next visit 06/13 if doing OK. - POCT JENNY-14 Urine Drug Screen documented in this encounter Plan of Treatment Upcoming Encounters Date Type Department Care Team (Late st Contact Info) Description 07/04/2024 1:30 PM EDT Telemedicine [facility] [address] [place] [address] Jacoby Donald MD [address] [place] [address] 08/04/2024 11:00 AM EDT Office Visit [facility] [address] [place] [address] Juani Sosa ANP [address] [place] [address] [phone] documented as of this encounter Procedures Procedure Name Priority Date/Time Associated Diagnosis Comments POCT JENNY-14 URINE DRUG SCREEN Routine 05/30/2024 2:57 PM EDT Uncomplicated opioid dependence (CMS/HCC) documented in this encounter Results * POCT JENNY-14 Urine Drug Screen (05/30/2024 2:57 PM EDT) THC Negative Cocaine Screen, Urine Negative Opiate [...] obtained by clean catch procedure / Unknown 05/30/2024 2:57 PM EDT us Jacoby Donald MD POINT OF CARE TEST ENTER/EDIT OR DERABLES Final Result documented in this encounter Visit Diagnoses Diagnosis Uncomplicated opioid dependence (CMS/HCC)- Primary documented in this encounter Additional Health Concerns Assessment Noted Time PHQ-9 Depression Total Score: 16 05/17/ 025 11:09 AM EST documented as of this encounter Care Teams Structural Layout Worker Relationship Specialty Start Date End Date Juani Sosa ANP [address] [place] [address] PCP - General Family Medicine 02/11/22 Lilian Varghese Powder Press OperatorProperty Man 07/02/23 documented as of this encounter
--- OUTSIDE RECORDS SUMMARY | 2024-06-16 17:20 | XMS_ITS | Encounter Summary ---
Author Organization [employer] Address [address] [facility] [address] 7t [place] [address] Care Team Providers Care Gas Singer Name Role Phone Juani Sosa Primary Care Provider [phone] Encounter Details Date Type Department Care Team (Late st Contact Info) Description 04/09/2023 Orders Only [facility] 230 [place], [place] [phone] Nalini Blum RN Uncomplicated opioid dependence (CMS/HCC) [...] Info) Description 07/04/2024 1:30 PM EDT Telemedicine [facility] [address] [place] [address] Jacoby Donald MD 230 [place] [address] 08/04/2024 11:00 AM EDT Office Visit [facility] [address] [place] [address] Juani Sosa ANP 230 [place] [address] Scheduled Orders Name Type Priority Associated Diagnoses [...] with Reflexes Lab Routine Uncomplicated opioid dependence ([facility]/HCC) Expected: 04/09/2023 (Approximate), Expires: 04/09/2024 Syphilis Screen Lab Routine Uncomplicated opioid dependence ([facility]) Expected: 04/09/2023 (Approximate), Expires: 04/09/2024 T-SPOT??.TB Lab Routine Uncomplicated opioid dependence ([facility]) Expected: 04/09/2023 (Approximate), Expires: 04/09/2024 documented as of this encounter Visit Diagnoses Diagnosis Uncomplicated opioid dependence (CMS/HCC) documented in this encounter Additional Health Concerns Assessment Noted Time PHQ-9 Depression Total Score: 14 024 10:44 AM EST documented as of this encounter Care Teams Gas Singer Relationship Specialty Start Date End Date Juani Sosa ANP [address] [place] [address] PCP - General Family Medicine 02/11/22 Lilian Varghese Continuous Mining Machine OperatorAgricultural Purchasing Agent 07/02/23 documented as of this encounter
--- OUTSIDE RECORDS SUMMARY | 2024-06-16 17:20 | XMS_ITS | Encounter Summary ---
Author Organization [employer] Address [address] [place] [address] 7t [place] [address] Care Team Providers Care Glass Science Engineer Name Role Phone Juani Sosa Primary Care Provider [phone] Reason for Referral * Consultation (Urgent) - Authorized Specialty Diagnoses / Procedures Referred By Toni milan Referred To Contact Gastroenterology Diagnoses Positive colorectal cancer screening using Cologuard test Juani Sosa ANP 230 [place] [address] Phone: tel: fax: Inna Hdz MD [address] [place] [address] [place] [address] Phone: tel: fax: Referral ID Status Reason Start Date Expiration Date Visits Requested Visits Authorized [id number] Authorized Specialty Services Required 06/06/2024 06/06/2025 1 1 Encounter Details Date Type Department Care Team (Late st Contact Info) Description 06/06/2024 Orders Only [facility] 230 [place] [address] Juani Sosa ANP 230 [place] [address] Positive colorectal cancer screening using Cologuard test (Primary Dx) Social History Tobacco Use Types [...] with others, in a hotel, in a usp, living outside on the street, on a [...] 07/04/2024 1:30 PM EDT Telemedicine [facility] 230 [place] [address] Jacoby Donald MD [address] [place] [address] 08/04/2024 11:00 AM EDT Office Visit [facility] [address] [place] [address] Juani Sosa ANP [address] [place] [address] Scheduled Referrals Name Type Priority Associated Diagnoses Order Schedule Referral to Gastroenterology Outpatient Referral Urgent Positive colorectal cancer screening using Cologuard test Expected: 06/06/2024 (Approximate), Expires: 06/06/2025 documented as of this encounter Visit Diagnoses Diagnosis Positive colorectal cancer screening using Cologuard test- Primary documented in this encounter Additional Health Concerns Assessment Noted Time PHQ-9 Depression Total Score: 16 025 11:09 AM EST documented as of this encounter Care Teams Glass Science Engineer Relationship Specialty Start Date End Date Juani Sosa ANP [address] [place] [address] PCP - General Family Medicine 02/11/22 Lilian Varghese Grain Mill WorkerCommunity Service Organization Director 07/02/23 documented as of this encounter
--- OUTSIDE RECORDS SUMMARY | 2024-06-16 17:20 | XMS_ITS | Encounter Summary ---
Author Organization [employer] Address [address] [place] [address] 7t [place] [address] Care Team Providers Care Staff Interpreter Name Role Phone Juani Sosa Primary Care Provider [phone] Reason for Visit * Reason Onset Date Comments No Show 06/07/2024 Encounter Details Date Type Department Care Team ([facility] Contact Info) Description 06/07/2024 Telephone [facility] 230 [place], [place] [phone] Juani Sosa ANP 230 [place], [place] [phone] No Show Social History Tobacco Use Types Packs/Day Years [...] others, in a hotel, in a senior care, living outside on the street, on a [...] encounter Miscellaneous Notes * Telephone Encounter - Mily Samona - 06/07/2024 2:28 PM EDT PT NS FOR PAP documented in this encounter Plan of Treatment Upcoming Encounters Date Type Department Care Team (Late st Contact Info) Description 07/04/2024 1:30 PM EDT Telemedicine [facility] [address] [place] [address] [phone] Jacoby Donald MD 230 [place], [place] [phone] 08/04/2024 11:00 AM EDT Office Visit [facility] [address] [place] [address] [phone] Juani Sosa ANP [address] [place], [place] [phone] documented as of this encounter Visit Diagnoses Not on filedocumented in this encounter Additional Health Concerns Assessment Noted Time PHQ-9 Depression Total Score: 16 05/17/ 025 11:09 AM EST documented as of this encounter Care Teams Staff Interpreter Relationship Specialty Start Date End Date Juani Sosa ANP 230 [place] [address] PCP - General Family Medicine 02/11/22 Lilian Varghese Welt RougherTutoring Manager 07/02/23 documented as of this encounter
--- OUTSIDE RECORDS SUMMARY | 2024-06-16 17:20 | XMS_ITS | Encounter Summary ---
Author Organization [employer] Address 75 [facility] 7t [place] [address] Care Team Providers Care Grease Buffer Name Role Phone Juani Sosa Primary Care Provider [phone] Encounter Details Date Type Department Care Team (Latest Contact Info) Description 05/30/2024 Travel Social History Tobacco Use Types Packs/Day [...] with others, in a hotel, in a jail, living outside on the street, on a [...] Info) Description 07/04/2024 1:30 PM EDT Telemedicine [facility] [address] [place] [address] Jacoby Donald MD [address] [place] [address] 08/04/2024 11:00 AM EDT Office Visit [facility] [address] [place] [address] Juani Sosa ANP [address] [place] [address] documented as of this encounter Visit Diagnoses Not on filedocumented in this encounter Additional Health Concerns Assessment Noted Time PHQ-9 Depression Total Score: 16 025 11:09 AM EST documented as of this encounter Care Teams Grease Buffer Relationship Specialty Start Date End Date Juani Sosa ANP [address] [place] [address] PCP - General Family Medicine 02/11/22 Lilian Varghese Drag DownValue Advisor 07/02/23 documented as of this encounter
--- OUTSIDE RECORDS SUMMARY | 2024-06-16 17:20 | XMS_ITS | Encounter Summary ---
Author Organization [employer] Address [address] [facility] 7t [place] [address] Care Team Providers Care Video Control Engineer Name Role Phone Juani Sosa Primary Care Provider [phone] Reason for Visit * Reason Onset Date Comments Med Refill 05/25/2024 Encounter Details Date Type Department Care Team ([facility] st Contact Info) Description 05/25/2024 Refill [facility] 230 [place] [address] Nalini Blum RN Opioid use disorder Social [...] with others, in a hotel, in a prison, living outside on the street, on a [...] Info) Description 07/04/2024 1:30 PM EDT Telemedicine [facility] [address] [place] [address] Jacoby Donald MD [address] [place] [address] 08/04/2024 11:00 AM EDT Office Visit [facility] [address] [place] [address] Juani Sosa ANP [address] [place] [address] documented as of this encounter Visit Diagnoses Diagnosis Opioid use disorder documented in this encounter Additional Health Concerns Assessment Noted Time PHQ-9 Depression Total Score: 16 025 11:09 AM EST documented as of this encounter Care Teams Video Control Engineer Relationship Specialty Start Date End Date Juani Sosa ANP [address] [place] [address] PCP - General Family Medicine 02/11/22 Lilian Varghese Apron TrimmerLining Baster 07/02/23 documented as of this encounter
--- OUTSIDE RECORDS SUMMARY | 2024-06-16 17:20 | XMS_ITS | Encounter Summary ---
Author Organization [employer] Address [address] [address] 7t [place] [address] Care Team Providers Care Fabrication Technician Name Role Phone Juani Sosa Primary Care Provider [phone] Reason for Visit * Reason Onset Date Comments Pre op 04/13/2023 Encounter Details Date Type Department Care Team ([facility] st Contact Info) Description 04/13/2023 Telephone [facility] 230 [place], [place] [phone] Juani Sosa ANP 230 [place], [place] [phone] Pre op Social History Tobacco Use Types [...] Surgeon's name: Dr Tim Mcdermott Facility name: [facility]'s office number: [phone] Surgeon's office fax number: [phone] Contact name (person you spoke with): [facility]oc [facility] Last office note from surgeon requested: no documented in this encounter Plan of Treatment Upcoming Encounters Date Type Department Care Team (Late st Contact Info) Description 07/04/2024 1:30 PM EDT Telemedicine [facility] [address] [place] [address] Jacoby Donald MD [address] [place] [address] 08/04/2024 11:00 AM EDT Office Visit [facility] [address] [place] [address] Juani Sosa ANP 230 [place] [address] documented as of this encounter Visit Diagnoses Not on filedocumented in this encounter Additional Health Concerns Assessment Noted Time PHQ-9 Depression Total Score: 14 024 10:44 AM EST documented as of this encounter Care Teams Fabrication Technician Relationship Specialty Start Date End Date Juani Sosa ANP 230 [place] [address] PCP - General Family Medicine 02/11/22 Lilian Varghese Perforator TypistAnimal Doctor 07/02/23 documented as of this encounter
--- OUTSIDE RECORDS SUMMARY | 2024-06-16 17:20 | XMS_ITS | Encounter Summary ---
Author Organization [employer] Address [address] [facility] [address] 7t [place] [address] Care Team Providers Care Portal Administrator Name Role Phone Juani Sosa Primary Care Provider [phone] Encounter Details Date Type Department Care Team (Late st Contact Info) Description 08/07/2023 Orders Only [facility] 230 [place], [place] [phone] Leeanne Mandel FNP Social History Tobacco Use [...] Info) Description 07/04/2024 1:30 PM EDT Telemedicine [facility] [address] [place] [address] Jacoby Donald MD [address] [place] [address] 08/04/2024 11:00 AM EDT Office Visit [facility] [address] [place] [address] Juani Sosa ANP [address] [place] [address] documented as of this encounter Visit Diagnoses Not on filedocumented in this encounter Additional Health Concerns Assessment Noted Time PHQ-9 Depression Total Score: 10 024 10:06 AM EST documented as of this encounter Care Teams Portal Administrator Relationship Specialty Start Date End Date Juani Sosa ANP [address] [place] [address] PCP - General Family Medicine 02/11/22 Lilian Varghese Tube Molder FiberglassGrinder Gear 07/02/23 documented as of this encounter
--- OUTSIDE RECORDS SUMMARY | 2024-06-16 17:20 | XMS_ITS | Encounter Summary ---
Author Organization [employer] Address [address] [facility] [address] 7t [place] [address] Care Team Providers Care Director Of Psychology Name Role Phone Juani Sosa BLANKA Primary Care Provider [phone] Reason for Visit * Reason Comments Med Change Request Encounter Details Date Type Department Care Team ([facility] Contact Info) Description 01/13/[address] [facility] 230 [place], [place] [phone] Jacoby Donald MD 230 [place] [address] Social History Tobacco Use Types Packs/Day Years [...] 07/04/2024 1:30 PM EDT Telemedicine [facility] [address] [place] [address] Jacoby Donald MD [address] [place] [address] 08/04/2024 11:00 AM EDT Office Visit [facility] [address] [place] [address] Juani Sosa ANP [address] [place] [address] documented as of this encounter Visit Diagnoses Not on filedocumented in this encounter Additional Health Concerns Assessment Noted Time PHQ-9 Depression Total Score: 16 023 9:58 AM EDT documented as of this encounter Care Teams Director Of Psychology Relationship Specialty Start Date End Date Juani Sosa ANP [address] [place] [address] PCP - General Family Medicine 02/11/22 Lilian Varghese Longshore Equipment OperatorInsulation Blower 07/02/23 documented as of this encounter
--- OUTSIDE RECORDS SUMMARY | 2024-06-16 17:20 | XMS_ITS | Encounter Summary ---
Author Organization [employer] Address [address] [facility] 7t [place] [address] Care Team Providers Care Tree Marker Name Role Phone Juani Sosa Primary Care Provider [phone] Encounter Details Date Type Department Care Team (Latest Contact Info) Description 06/13/2024 Travel Social History Tobacco Use Types Packs/Day [...] Info) Description 07/04/2024 1:30 PM EDT Telemedicine [facility] [address] [place] [phone] Jacoby Donald MD [address] [place] [address] [phone] 08/04/2024 11:00 AM EDT Office Visit [facility] [address] [place] [address] Juani Sosa ANP [address] [place] [address] 11717 documented as of this encounter Visit Diagnoses Not on filedocumented in this encounter Additional Health Concerns Assessment Noted Time PHQ-9 Depression Total Score: 16 025 11:09 AM EST documented as of this encounter Care Teams Tree Marker Relationship Specialty Start Date End Date Juani Sosa ANP [address] [place] [phone] PCP - General Family Medicine 02/11/22 Lilian Varghese Wood Type FinisherPrep Cook 07/02/23 documented as of this encounter
--- OUTSIDE RECORDS SUMMARY | 2024-06-16 17:20 | XMS_ITS | Encounter Summary ---
Author Organization [employer] Address [address] [place] [address] 7t [place] [address] Care Team Providers Care Insole Rasper Name Role Phone Juani Sosa Primary Care Provider [phone] Reason for Visit * Reason Onset Date Comments Results 06/06/2024 Encounter Details Date Type Department Care Team ([facility] Contact Info) Description 06/06/2024 Telephone [facility] [address] [place], [place] [phone] Juani Sosa ANP [address] [place] [address] Results Social History Tobacco Use Types Packs/Day Years [...] with others, in a hotel, in a custodial, living outside on the street, on a [...] encounter Miscellaneous Notes * Telephone Encounter - Zhanna Ochoa RN - 06/06/2024 10:47 AM EDT Telephone call to pt to advise of positive Cologuard results. Advised pt this is screening test that found blood or DNA in stool sample and that it is not diagnostic for cancer however it requires colonoscopy follow up for further evaluation. Advised pt of urgent GI referral placed and that letter with details to be sent and to expect call regarding appt. Pt verbalized understanding. Pt then asked about appt with PCP for right wrist pain, states that she fell against a wall 3 weeks ago and has had right wrist pain and swelling since then, denies redness or open areas. No sick on sites available today, pt declined [facility] today, offered pt sick on site appt with other provider tomorrow, pt declined, stated she prefers PCP, stated I will try to go to [facility] on Thursday advertising copy writer advised of extended hours. Advised pt reasons to call back, pt verbalized understanding. * Telephone Encounter - Zhanna Ochoa RN - 06/06/2024 10:34 AM EDT ----- Message from Juani Sosa sent at 06/06/2024 10:16 AM EDT ----- Please let patient know that her Cologuard test was positive. A positive Cologuard test means that the test detected altered DNA and/or blood in your stool. This could be due to precancerous growths,colorectal cancer, or some other reason. This needs further evaluation with a colonoscopy. Please note that??a positive Cologuard test is NOT diagnostic of cancer. I will place referral to gastroenterology for colonoscopy for further evaluation. Cologuard is a screening test, which means that it is used to look for cancer or precancerous growths in people who do not have any symptoms. Screening tests are important because they can help to find cancer early, when it is most treatable. documented in this encounter Plan of Treatment Upcoming Encounters Date Type Department Care Team (Late st Contact Info) Description 07/04/2024 1:30 PM EDT Telemedicine [facility] [address] [place] [address] Jacoby Donald MD [address] [place] [phone] 08/04/2024 11:00 AM EDT Office Visit [facility] [address] [place] [address] Juani Sosa ANP [address] [place] [phone] documented as of this encounter Visit Diagnoses Not on filedocumented in this encounter Additional Health Concerns Assessment Noted Time PHQ-9 Depression Total Score: 16 05/17/ 025 11:09 AM EST documented as of this encounter Care Teams Insole Rasper Relationship Specialty Start Date End Date Juani Sosa ANP [address] [place] [address] [place] [address] PCP - General Family Medicine 02/11/22 Lilian Varghese Soloist DancerCase Work Aide 07/02/23 documented as of this encounter
--- OUTSIDE RECORDS SUMMARY | 2024-06-16 17:20 | XMS_ITS | Patient Health Record ---
Author Organization [facility] Address [address] [place], [place] [id number] Care Team Providers Care Weight Guesser Name Role Phone [facility] Primary Care Provider Tessie Dominguez Unavailable [phone] Housing, Search Unavailable Unavailable Reason For Referral No Information Encounters Encounter Location Date Provider Diagnosis [facility] [address] [place], [place] [phone] 09/23/2023 Tessie Aldridge Plan Of Treatment No Information Insurance Providers Payer Name Payer Address Payer Phone Subscriber Number Group Number Insured Name Patient Relationship to Insured Coverage Start Date Coverage End Date [place] C3 [address] [place], [place] [id number] [phone] [id number] Gaby Arteaga Self - patient is the insured 4 4
--- OUTSIDE RECORDS SUMMARY | 2024-06-16 17:20 | XMS_ITS | Clinical Summary ---
Author Organization [employer] Address [address] [facility] [address] 7t [place] [address] Care Team Providers Care Institutional Nutrition Consultant Name Role Phone Juani Sosa Primary Care Provider [phone] Allergies Active Allergy Reactions Criticality Noted Date [...] allergic rhinitis due to other allergic trigger [place] 2 sprays into each nostril every day as needed 48 mL 024 Active omeprazole (PriLOSEC) [address] capsuleIndication s:Epigastric pain TAKE 1 CAPSULE BY MOUTH DAILY BEFORE BREAKFAST. DO NOT BREAK, CRUSH, DISSOLVE OR CHEW 90 capsule 1 025 Active albuterol (ProAir HFA) 108 (90 Base) MCG/ACT inhalerIndication s:Moderate persistent asthma without complication Inhale 2 puffs every 4 (four) hours if needed for shortness of breath or wheezing. 18 g 2 025 Active Diclofenac Sodium (Voltaren) 1 % gelIndications:Ch ronic pain of both knees,Bilateral hand pain Apply 2g up to 4x/d to affected joint(s) for pain/swelling 100 g 2 025 Active hydroCHLOROthiazi de (HYDRODiuril) 25 MG tabletIndications :Bilateral leg edema,Essential hypertension Take 1 tablet (25 mg) by mouth Once per day. 90 tablet 025 2025 Active fluticasone furoate (Arnuity Ellipta) 200 MCG/ACT inhalerIndication s:Moderate persistent asthma without complication Inhale 1 puff Once per day. Rinse mouth with water after use to reduce aftertaste and incidence of candidiasis. Do not swallow. 30 each 11 025 Active Buprenorphine HCl-Naloxone HCl (Suboxone) 8-2 MG SL filmIndications:O pioid use disorder Place 1 Film under the tongue 3 times daily for 21 days. 63 Film 025 2024 Active Buprenorphine HCl-Naloxone HCl (Suboxone) 8-2 MG [...] eorder (will not trigger notification to Pharmacy)) Active Problems Problem Noted Date Diagnosed Date [...] think is appropriate to refer to an it technical support specialist she may require further testing. In the meantime I have recommended against the use of NSAIDS going forward and protect herself when outdoors. Since her symptoms are resolved no need for treatment at the moment. Pt has Zyrtec at home which she will continue to take. Abnormal nuclear stress test 08/05/2023 Acute bronchitis with chroni c obstructive pulmonary disease (COPD) ([facility]) 08/05/2023 History of left bundle branch [...] retiring, pt will be referred to new [facility] Psychiatric provider. Pt is aware that appts will be via televisit and that provider will not be an [facility] employee. She gives permission to share PHI. 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 She will also F/U with [facility] clinician Nilson and the supports of the [facility] program. F/U with me in 2-3 weeks. She agrees with the plan. Opioid abuse 07/02/2022 05/17/2024 Encounters * This document contains information received from the source organization and may not represent a complete record from that organization. Date Type Department Care Team Description 06/13/2024 2:30 PM EDT Telemedicine [facility] [place] [address] Jacoby Donald MD Uncomplicated opioid dependence (CMS/HCC) (Primary Dx) 06/13/2024 Refill [facility] [address] [facility] [place] [address] Nalini Blum RN Opioid use disorder 06/13/2024 Travel 06/07/2024 Telephone [facility] [address] [place] [address] Juani Sosa ANP No Show 06/06/2024 Telephone [facility] [address] [place] [address] Juani Sosa ANP Results 06/06/2024 Orders Only [facility] [address] [place] [address] Juani Sosa ANP Positive colorectal cancer screening using Cologuard test (Primary Dx) 06/03/2024 Population Health Risk Score [facility] (C3) [address] [phone] Provider, Population Health Generic 05/30/2024 2:45 PM EDT Office Visit [facility] [address] [place] [address] Jacoby Donald MD Uncomplicated opioid dependence (CMS/HCC) (Primary Dx) 05/30/2024 Travel 05/25/2024 Refill [facility] [address] [place] [address] Nalini Blum RN Opioid use disorder 05/17/2024 Refill [facility] [address] [place] [address] Nalini Blum RN Opioid use disorder 05/16/2024 2:45 PM EST Telemedicine [address] [address] Jacoby Donald MD Uncomplicated opioid dependence (CMS/HCC) (Primary Dx) 05/16/[address] [address] Marielos Almeida [place] 05/16/2024 Travel 05/06/2024 Telephone [facility] [address] [place] [address] Juani Sosa ANP Leonidas Formotus (2 A4500 15-mmHg Black CT RTS L) 05/05/2024 Refill [facility] [address] [place] [address] Nalini Blum RN Opioid use disorder 05/02/2024 1:30 PM EST Office Visit [facility] [address] [place] [address] Juani Sosa ANP Screening mammogram for breast cancer (Primary Dx); Moderate persistent asthma without complication; Bilateral leg edema; Screening for colon cancer; Chronic pain of both knees; Bilateral hand pain; Essential hypertension; Homeless; Screening for cervical cancer 05/02/2024 1:15 PM EST Office Visit [facility] [address] [place] [address] Jacoby Donald MD Uncomplicated opioid dependence (CMS/HCC) (Primary Dx) 05/02/2024 Travel 05/02/2024 Telephone [facility] [address] [place] [address] Nalini Blum RN 05/02/2024 Refill [facility] [address] [place] [address] Juani Sosa ANP Epigastric pain 04/26/2024 Refill [facility] [address] [place] [address] Nalini Blum RN Opioid use disorder 04/20/2024 Patient Outreach [facility] [address] [place] [address] Juani Sosa ANP Care Coordination (CHW outreach for SDOH housing search-referral completed ) 04/20/2024 Patient Outreach [facility] [address] [place] [address] Juani Sosa ANP Pre-visit Planning (SDOH Screening positive and Tobacco screening negative) 04/18/2024 2:15 PM EST Telemedicine [facility] [address] [place] [address] Jacoby Donald MD Uncomplicated opioid dependence (CMS/HCC) (Primary Dx) 04/18/2024 Travel 04/13/2024 Refill [facility] [address] [place] [address] Nalini Blum RN Opioid use disorder 03/28/2024 3:15 PM EST Telemedicine [facility] [address] [place] [address] Jacoby Donald MD Uncomplicated opioid dependence (CMS/HCC) (Primary Dx) 03/28/2024 Refill [facility] [address] [place] [address] Nalini Blum, RN Opioid use disorder 03/28/2024 Refill [facility] [address] [place] [address] Nalini Blum RN Opioid use disorder 03/28/2024 Travel 03/22/2024 Refill [facility] [address] [place] [address] Nalini Blum RN Opioid use disorder 03/21/2024 2:45 PM EST Office Visit [facility] [address] [place] [address] Jacoby Donald MD Uncomplicated opioid dependence (CMS/HCC) (Primary Dx) 03/21/2024 Patient Outreach [facility] [address] [place] [address] Jomar Rivers [facility] Supports 03/21/2024 Travel from Last 3 Months Immunizations Name Administration Dates Next Due Hep A / Hep B 06/04/2010,04/09/2010 Hep B, adult 01/09/2017 HepB-CpG 06/09/2023 Influenza injectable quadriv alent IIV4 with preservative 01/09/2017,01/24/2016 Influenza injectable quadrivalent preservative f ree 05/17/2019 Influenza, IIV3, injectable 01/01/2010, 6 Moderna Covid-19 Vaccine 12+ 07/24/2020 Pfizer Covid-19 Vaccine 12+ 11/01/2021, 2 Pfizer Covid-19 Vaccine 12+ jessica-sucrose (Krish dumas) 11/01/2021 Pneumococcal Polysaccharide PPSV23 08/19/2014 Rabies, IM [...] with others, in a hotel, in a fpc, living outside on the street, on a [...] Info) Description 07/04/2024 1:30 PM EDT Telemedicine [facility] [address] [place], [place] [phone] Jacoby Donald MD [address] [place], [place] [phone] 08/04/2024 11:00 AM EDT Office Visit [facility] [address] [place], [place] [phone] Juani Sosa, BLANKA [address] [place], [place] [phone] Health Maintenance Due Date Last Done Comments CT Colonography 1966 Colonoscopy 1966 FIT 1966 Sigmoidoscopy 1966 Pap Smear 07/30/1987 Cervical Cancer Screening 1996 HPV/Cotest 1996 Pneumococcal Vaccine: 50+ Years (2 of 2 - PCV) 08/20/2015 08/19/2014 Mammogram 04/13/2020 04/13/2018 FOBT 11/07/2020 11/08/2019 Zoster Vaccines (2 of 2) 08/04/2023 06/09/2023 Influenza Vaccine (#1) 2024 , 01/09/2017, 01/24/2016, Additional history exists Postponed from 11/22/2023 (Patient Refused) Depression Monitoring (PHQ-9) 11/14/2024 05/17/2024, 05/17/2024 Lipid Panel 04/03/2025 04/03/2020 SDOH Screening 04/20/2025 04/20/2024 Alcohol/Substance Use Screening 05/02/2025 05/02/2024 COVID-19 Vaccine ( season) 2025 11/01/2021, 11/01/2021, 04/12/2021, Additional history exists Postponed from 11/22/2023 (Patient Refused) Depression Screening 05/17/2025 05/17/2024, 05/17/19 Tobacco Screening 06/13/2025 06/13/2024 Colorectal Cancer Screening 05/28/2027 FIT DNA/Cologuard 05/28/2027 05/27/2024 DTaP/Tdap/Td Vaccines (3 - Td or Tdap) 08/04/2032 08/04/2022, 01/01/2010 RSV Patients and Patients Aged 60 years or older (1 - 1-dose 75+ series) 2041 Hepatitis A Vaccines Aged Out 06/04/2010, 04/09/19 11 No longer eligible based on patient's age to complete this topic HIV Screening Completed 04/03/2020 Hepatitis C Screening [...] 2:57 PM EDT Uncomplicated opioid dependence (CMS/HCC) LAB COLOGUARD?? COLON CANCER SCREEN Routine 05/27/2024 2:49 PM EST Screening for colon cancer POCT JENNY-14 URINE DRUG SCREEN Routine 05/02/2024 1:17 PM EST Uncomplicated opioid dependence (CMS/HCC) POCT JENNY-14 URINE DRUG SCREEN Routine 03/21/2024 2:41 PM EST Uncomplicated opioid dependence (CMS/HCC) LIPID [...] Urine Drug Screen (05/30/2024 2:57 PM EDT) Only the most recent of3 resultswithin the time period is included. THC [...] procedure / Unknown 05/30/2024 2:57 PM EDT Jacoby Donald MD POINT OF CARE TEST ENTER/EDIT OR DERABLES Final Result * (ABNORMAL) Cologuard?? colon cancer screening (05/27/2024 2:49 PM EST) Cologuard Result Positive( A) Negative 06/04/2024 5:36 PM EDT [employer] (CLIA #:[id number]) Comment: POSITIVE TEST RESULT. A positive Cologuard result should be followed with a colonoscopy or visual examination of the colon. The normal value (reference range) for this assay is negative. TEST DESCRIPTION: Composite algorithmic analysis of stool DNA-biomarkers with hemoglobin immunoassay. ?? Quantitative values of individual biomarkers are not reportable and are not associated with individual biomarker result reference ranges. Cologuard is intended for colorectal cancer screening of adults of either sex, 45 years or older, who are at average-risk for colorectal cancer (CRC). Cologuard has been approved for use by the U.S. FDA. The performance of Cologuard was established in a cross sectional study of average-risk adults aged 50-84. Cologuard performance in patients ages 45 to 49 years was estimated by sub-group analysis of near-age groups. Colonoscopies performed for a positive result may find as the most clinically significant lesion: colorectal cancer [4.0%], advanced adenoma (including sessile serrated polyps greater than or equal to 1cm diameter) [20%] or non- advanced adenoma [31%]; or no colorectal neoplasia [45%]. These estimates are derived from a prospective cross-sectional screening study of 10,000 individuals at average risk for colorectal cancer who were screened with both Cologuard and colonoscopy. (Roverto Sims et al, N Engl J Med 2014;370(14):1472-2911.) Cologuard may produce a false negative or false positive result (no colorectal cancer or precancerous polyp present at colonoscopy follow up). A negative Cologuard test result does not guarantee the absence of CRC or advanced adenoma (pre-cancer). The current Cologuard screening interval is every 3 years. ([place] Cancer Society and U.S. Multi-Society Task Force). Cologuard performance data in a 10,000 patient pivotal study using colonoscopy as the reference method can be accessed at the following location: www.Publicfast/results. Additional description of the Cologuard test process, warnings and precautions can be found at www.Combat StrokeogJans Digital Plansrd.com. Stool specimen (specimen) 05/27/2024 2:49 PM EST 05/29/2024 11:29 PM EDT [facility] MOLECULAR DIAGNOSTICS ORDERA BLES Final Result [employer] (CLIA #:[id number]) [place] [address], * (ABNORMAL) LIPID PANEL, STANDARD (04/03/2020 2:27 PM EST) Chol/HDLC Ratio 3.5 <5.0 (calc) [facility] [...] ?? LDL-C is now calculated using the Jeimy ?? calculation, which is a validated novel method providing ?? better accuracy than the Friedewald equation in the ?? estimation of LDL-C. ?? Faustino MCLAIN et al. NICHOLAS. 2013;310(19): 8803-4588 ?? (http://First Aid Shot Therapy/faq/YBR667) Non-HDL Cholesterol 157(H) <130 mg/dL (calc) [facility] Comment: For patients with diabetes plus 1 major ASCVD risk ?? factor, treating to a non-HDL-C goal of <100 mg/dL ?? (LDL-C of <70 mg/dL) is considered a therapeutic ?? option. Triglycerides 165(H) <150 mg/dL [facility] 04/03/2020 2:27 PM EST Syed Hardy MD LAB BLOOD ORDERABLES Final Resul t [facility] [address] * HEPATITIS C AB W/REFL TO HCV RNA, QN, PCR (04/03/2020 2:26 PM EST) HEPATITIS C ANTIBODY NON-REACT BATS[place]VA NON-REACT B[facility]VA [facility] INDEX 0.04 <1.00 [facility] Comment: ?? HCV antibody was non-reactive. There is no laboratory ?? evidence of HCV infection. ?? In most cases, no further action is required. However, if recent HCV exposure is suspected, a test for HCV RNA (test code 18828) is suggested. ?? For additional information please refer to http://Samplesaint.Digiscend/faq/RIQ99r3 (This link is being provided for informational/ educational purposes only.) ?? 04/03/2020 2:26 PM EST Hyacinth Alvarez MD HISTORICAL/NON ORDERABLE LABS Fi nal Result Performing Organization Address [facility] de Phone Number [facility] [address] [place] [address], * HIV 1/2 ANTIGEN/ANTIBODY,FOURTH GENERATION W/RFL (04/03/2020 2:26 PM EST) HIV-1/2 ANTIGEN AND ANTIBODIES, 4TH GENERATION W/ REFLEX NON-REACT BATSHEVA NON-REACT BATSHEVA [facility] Comment: HIV-1 antigen and HIV-1/HIV-2 [...] ? For additional information please refer to http://education.Advisor Client Match.AirPair/faq/TRT886 (This link is being provided for informational/ educational purposes only.) ? The performance of this assay has not been clinically validated in patients less than 2 years old. ?? 04/03/2020 2:26 PM EST Hyacinth Alvarez MD LAB BLOOD ORDERABLES Final Resul t Performing Organization Address [facility] de Phone Number [facility] [address] [place] [address], * (ABNORMAL) OCCULT BLOOD STOOL (11/08/2019 11:25 AM EDT) OCCULT BLOOD STOOL POS(AA) NEG [facility] 11/08/2019 11:2 5 AM EDT Historical Provider LAB BODY FLUIDS AND STOOL S ORDERABLES Final Result [facility] [address] * Req: Mammogram (Screening); Bilateral (04/13/2018 12:51 PM EST) Anatomical Region Laterality Modality Breast Bilateral Mammography 04/13/2018 12:5 1 PM EST Narrative 04/13/2018 12:53 PM EST Refer to the Notes tab for result details [facility] Procedure: Req: Mammogram (Screening); Bilateral Procedure Note Provider, MD Milton - 06/14/2022 Refer to the Notes tab for result details [facility] Procedure: Req: Mammogram (Screening); Bilateral George Cano MD IMG BI PROCEDURES Final Resul t from Last 3 Months or Most Recently Relevant to Health Maintenance Insurance [facility] Care Teams Institutional Nutrition Consultant Relationship Specialty Start Date End Date Juani Sosa ANP [address] [place] [address] PCP - General Family Medicine 02/11/22 Lilian Varghese Rope Laying Machine OperatorVocational Rehabilitation Counselor 07/02/23
== END 2024-06-16 14:15 | disposition home or self-care (01) ==
LOC: HO.HVS 13:52
PROVIDERS: PCP Nurse Practitioner Primary Care; Visit Provider Physician Assistant Surgical
DX: I83.11 Varicose veins of right lower extremity with inflammation (principal); I83.12 Varicose veins of left lower extremity with inflammation
CPT/HCPCS: 99204

== ENCOUNTER → 2024-06-16 13:51 | Outpatient (BNVA) | payer MEDICAID, SELFPAY | PROVIDERS: PCP Nurse Practitioner Primary Care; Visit Provider Physician Assistant Surgical | DX: I83.11 Varicose veins of right lower extremity with inflammation (principal); I83.12 Varicose veins of left lower extremity with inflammation | CPT/HCPCS: 99212 ==

== ENCOUNTER 2024-06-17 14:09 | Outpatient (REF) | payer MEDICAID, SELFPAY | END 2024-06-17 14:10 | disposition home or self-care (01) | LOC: HO.MAMMO 14:09 | PROVIDERS: PCP Nurse Practitioner Primary Care; Visit Provider Nurse Practitioner Primary Care | DX: Z12.31 Encounter for screening mammogram for malignant neoplasm of breast (principal) | CPT/HCPCS: 77063; 77067 ==

== ENCOUNTER → 2024-06-17 14:30 | Outpatient (BNV) | payer MEDICAID, SELFPAY | PROVIDERS: PCP Nurse Practitioner Primary Care; Visit Provider Internal Medicine | DX: Z12.31 Encounter for screening mammogram for malignant neoplasm of breast (principal) | CPT/HCPCS: 77063; 77067 ==

== ENCOUNTER 2024-07-04 14:28 | Outpatient (REF) | payer MEDICAID, SELFPAY ==
[2024-07-04 16:04] LABS: MANUAL DIFF FLAG NO
[2024-07-04 16:11] LABS: Basophils Absolute Auto 0.1 X10*3/uL (0.0-0.2); Basophils Percent Auto 0.7 % (0-2); Eosinophils Absolute Auto 0.7 X10*3/uL (0.0-0.4); Hemoglobin 12.6 g/dl (12.0-16.0); Imm Gran Abs Auto 0.02 X10*3/uL (0.00-0.03); Imm Gran Pct Auto 0.2 % (0.0-0.4); Lymphocytes Percent Auto 23.9 % (20-40); Mean Corpuscular HGB Conc 32.3 g/dl (31.0-35.0); Mean Corpuscular Hemoglobin 27.6 pg (27.0-33.0); Mean Corpuscular Volume 85.3 fL (80.0-98.0); Mean Platelet Volume 9.9 fL (9.4-12.3); Monocytes Absolute Auto 0.5 X10*3/uL (0.1-1.2); Monocytes Percent Auto 5.3 % (2-11); Neutrophils Absolute Auto 5.3 x10*3/uL (2.0-8.3); Neutrophils Percent Auto 61.9 % (45-73); Platelet Count 357 X10*3/uL (160-400); Red Blood Count 4.57 X10*6/uL (4.20-5.50); Red Cell Distribution Width 12.9 % (11.0-16.0); White Blood Count 8.5 X10*3/uL (4.8-10.8)
[2024-07-04 16:24] LABS: B Type Natriuretic Peptide 54 pg/mL (<100)
[2024-07-04 16:25] LABS: Alanine Aminotransferase 27 U/L (0-31); Albumin Level 4.2 g/dL (3.5-5.0); Alkaline Phosphatase 174 U/L (39-117); Anion Gap 13 (12-20); Aspartate Amino Transferase 31 U/L (5-31); Bilirubin Direct 0.2 mg/dL (0.0-0.5); Bilirubin Total 0.4 mg/dL (0.0-1.0); Blood Urea Nitrogen 15 mg/dL (9-16); Calcium 9.7 mg/dL (8.4-10.2); Carbon Dioxide 28 mmol/L (22-29); Chloride 102 mmol/L (96-108); Estimated Glomerular Filt Rate > 60; Glucose Random 183 mg/dL (60-115); Potassium 3.8 mmol/L (3.3-5.1); Sodium 139 mmol/L (135-145); Total Protein 8.3 g/dL (6.5-8.0)
[2024-07-04 16:46] LABS: TSH reflex Free T4 1.14 uIU/mL (0.32-4.0)
--- OUTSIDE RECORDS SUMMARY | 2024-07-04 16:51 | XMS_ITS | Encounter Summary ---
Author Organization [employer] Address [address] [facility] [address] 7t [place] [address] Care Team Providers Care Scale And Skip Car Operator Name Role Phone Juani Sosa Primary Care Provider [phone] Reason for Visit * Reason Onset Date Comments Pre op 04/13/2023 Encounter Details Date Type Department Care Team ([facility] st Contact Info) Description 04/13/2023 Telephone [facility] MEDICINE [address] [place], [place] [phone] Juani Sosa ANP [address] [place], [place] [phone] Pre op Social History Tobacco Use Types [...] your housing situation today? I have kayden augilar 04/08/[address] you li [...] Surgeon's name: Dr Tim Mcdermott Facility name: [facility] Surgeon's office number: [phone] Surgeon's office fax number: [phone] Contact name (person you spoke with): Ngoc from [facility] office Last office note from surgeon requested: no documented in this encounter Plan of Treatment Upcoming Encounters Date Type Department Care Team (Late st Contact Info) Description 07/25/2024 2:15 PM EDT Office Visit [facility] MEDICINE [address] [place] [phone] Jacoby Donald MD [address] [place] [address] 08/04/2024 11:00 AM EDT Office Visit [facility] MEDICINE [address] [place] [address] Juani Sosa ANP [address] [place] [address] documented as of this encounter Visit Diagnoses Not on filedocumented in this encounter Additional Health Concerns Assessment Noted Time PHQ-9 Depression Total Score: 14 024 10:44 AM EST documented as of this encounter Care Teams Scale And Skip Car Operator Relationship Specialty Start Date End Date Juani Sosa ANP [address] [place] [address] PCP - General Family Medicine 02/11/22 Lilian Varghese Senior Ux DesignerCarrier Washer 07/02/23 documented as of this encounter
--- OUTSIDE RECORDS SUMMARY | 2024-07-04 16:51 | XMS_ITS | Encounter Summary ---
Author Organization [employer] Address [address] [place] [address] 7t [place] [address] Care Team Providers Care Youth Court Judge Name Role Phone Juani Sosa Primary Care Provider [phone] Reason for Visit * Reason Comments TELE OBAT F/U Encounter Details Date Type Department Care Team (Latest Contact Info) Description 07/04/2024 1:30 PM EDT Telemedicine [facility] MEDICINE [address] [place], [place] [phone] Jacoby Donald MD [address] [place], [place] [phone] Uncomplicated opioid dependence (CMS/HCC) (Primary Dx) Social [...] with others, in a hotel, in a skilled nursing, living outside on the street, on a [...] Progress Notes * Jacoby Donald MD - 07/04/2024 1:30 PM EDT Subjective Patient ID: Gaby Arteaga [...] her apartment. Has rented friend's room in [place] from Feb to end of May 2024, and he is giving her a 2 States has appointment for her own apartment in [place]; will let us know. Eldest son had neurosurgery in [place] due to ?aneurysm, and he has moved back and is staying with Gaby. Labs done 10/25/2023. No constipation. Quit smoking 01/2022 Has 3 sons, montez is in psychiatric residential program, one lives in [place] and one in [place]. Has 2 daughters, one is disabled and lives with her grandmother in [place], and one lives in [place] and works at [employer] in [place]. Patient gave verbal consent to be seen in this manner. A complete assessment and plan is detailed in the note, all of which were conducted remotely using virtual technology. Patient identity was verbally confirmed with 2 identifiers at the start of the visit. [facility] Provider was located [...] orders for this visit: Uncomplicated opioid dependence (CMS/[facility]) Recovery support, harm reduction (including Narcan) and behavioral health attendance reviewed. Continue Suboxone 24/6 mg on 3 week schedule. documented in this encounter Plan of Treatment Upcoming Encounters Date Type Department Care Team (Late st Contact Info) Description 07/25/2024 2:15 PM EDT Office Visit [facility] MEDICINE [address] [place] [address] Jacoby Donald MD [address] [place] [address] 08/04/2024 11:00 AM EDT Office Visit [facility] MEDICINE [address] [place], [place] [phone] Juani Sosa ANP [address] [place] [address] documented as of this encounter Visit Diagnoses Diagnosis Uncomplicated opioid dependence (CMS/HCC)- Primary documented in this encounter Additional Health Concerns Assessment Noted Time PHQ-9 Depression Total Score: 16 025 11:09 AM EST documented as of this encounter Care Teams Youth Court Judge Relationship Specialty Start Date End Date Juani Sosa ANP [address] [place] [address] PCP - General Family Medicine 02/11/22 Lilian Varghese Nuclear Auxiliary OperatorInvestment Strategist 07/02/23 documented as of this encounter
--- OUTSIDE RECORDS SUMMARY | 2024-07-04 16:51 | XMS_ITS | Encounter Summary ---
Author Organization [employer] Address [address] [facility] [address] 7t [place] [address] Care Team Providers Care Chisel Worker Name Role Phone Juani Sosa Primary Care Provider [phone] Reason for Visit * Reason Comments Med Change Request Encounter Details Date Type Department Care Team ([facility] Contact Info) Description 08/05/[address] [facility] [address] [place] [address] Leeanne Mandel FNP Moderate persistent asthma with [...] Description 07/25/2024 2:15 PM EDT Office [facility] MEDICINE [address] [place] [address] Jacoby Donald MD [address] [place] [address] 08/04/2024 11:00 AM EDT Office Visit [facility] [address] [place] [address] Juani Sosa ANP [address] [place] [address] documented as of this encounter Visit Diagnoses Diagnosis Moderate persistent asthma with acute exacerbation documented in this encounter Additional Health Concerns Assessment Noted Time PHQ-9 Depression Total Score: 10 024 10:06 AM EST documented as of this encounter Care Teams Chisel Worker Relationship Specialty Start Date End Date Juani Sosa ANP [address] [place] [address] PCP - General Family Medicine 02/11/22 Lilian Varghese Configuration Management SpecialistMaster Planner 07/02/23 documented as of this encounter
--- OUTSIDE RECORDS SUMMARY | 2024-07-04 16:51 | XMS_ITS | Encounter Summary ---
Author Organization [employer] Address [address] [facility] [address] 7t [place] [address] Care Team Providers Care Ball Fringe Machine Operator Name Role Phone Juani Sosa Primary Care Provider [phone] Reason for Visit * Reason Onset Date Comments Med Refill Appointment 09/10/2023 [facility] Encounter Details Date Type Department Care Team (Late st Contact Info) Description 09/10/2023 Refill [facility] [address] [place] [address] Rafael Shahid FNP Social History Tobacco Use [...] prescriber. Abhi-schedule an apt for 10/06/23 as [id number] documented in this encounter Plan of Treatment Upcoming Encounters Date Type Department Care Team (Late st Contact Info) Description 07/25/2024 2:15 PM EDT Office Visit [facility] MEDICINE [address] [place] [address] Jacoby Donald MD [address] [place] [address] 08/04/2024 11:00 AM EDT Office Visit [facility] MED[facility]INE [address] [place] [address] Juani Sosa ANP 230 [place] [address] documented as of this encounter Visit Diagnoses Not on filedocumented in this encounter Additional Health Concerns Assessment Noted Time PHQ-9 Depression Total Score: 10 024 10:06 AM EST documented as of this encounter Care Teams Ball Fringe Machine Operator Relationship Specialty Start Date End Date Juani Sosa ANP [address] [place], [place] [phone] [address] PCP - General Family Medicine 02/11/22 Lilian Varghese Almond SorterPyrotechnic Mixer 07/02/23 documented as of this encounter
--- OUTSIDE RECORDS SUMMARY | 2024-07-04 16:51 | XMS_ITS | Encounter Summary ---
Author Organization [employer] Address [address] [facility] 7t [place] [address] Care Team Providers Care Electric Deicer Inspector Name Role Phone Juani Sosa Primary Care Provider [phone] Reason for Visit * Reason Onset Date Comments Med Refill 06/29/2024 Encounter Details Date Type Department Care Team (Late st Contact Info) Description 06/29/2024 Refill [facility] [address] [place] [address] Nalini Blum RN Opioid use disorder Social [...] Description 07/25/2024 2:15 PM EDT Office Visit [facility] [address] [place] [address] Jacoby Donald MD [address] [place] [address] 08/04/2024 11:00 AM EDT Office Visit [facility] [address] [place] [address] Juani Sosa ANP [address] [place] [address] documented as of this encounter Visit Diagnoses Diagnosis Opioid use disorder documented in this encounter Additional Health Concerns Assessment Noted Time PHQ-9 Depression Total Score: 16 025 11:09 AM EST documented as of this encounter Care Teams Electric Deicer Inspector Relationship Specialty Start Date End Date Juani Sosa ANP [address] [place] [address] PCP - General Family Medicine 02/11/22 Lilian Varghese Telehealth Nurse EducatorRoulette Dealer 07/02/23 documented as of this encounter
--- OUTSIDE RECORDS SUMMARY | 2024-07-04 16:51 | XMS_ITS | Encounter Summary ---
Author Organization [email or web address] Address [address] [facility] 7t [place] [address] Care Team Providers Care Fire Extinguisher Installer Name Role Phone Juani Sosa Primary Care Provider [phone] Encounter Details Date Type Department Care Team (Latest Contact Info) Description 07/04/2024 Travel Social History Tobacco Use Types Packs/Day [...] Description 07/25/2024 2:15 PM EDT Office Visit [facility] MEDICINE [address] [place] [address] Jacoby Donald MD [address] [place] [address] 08/04/2024 11:00 AM EDT Office Visit [facility] MED[facility]INE [address] [place] [address] Juani Sosa ANP [address] [place] [address] documented as of this encounter Visit Diagnoses Not on filedocumented in this encounter Additional Health Concerns Assessment Noted Time PHQ-9 Depression Total Score: 16 025 11:09 AM EST documented as of this encounter Care Teams Fire Extinguisher Installer Relationship Specialty Start Date End Date Juani Sosa ANP [address] [place] [address] PCP - General Family Medicine 02/11/22 Lilian Varghese Bulwark CarpenterTruck Washer 07/02/23 documented as of this encounter
--- OUTSIDE RECORDS SUMMARY | 2024-07-04 16:51 | XMS_ITS | Encounter Summary ---
Author Organization [employer] Address [address] [facility] [address] 7t [place] [address] Care Team Providers Care Sanitary Engineering Teacher Name Role Phone Juani Sosa Primary Care Provider [phone] Encounter Details Date Type Department Care Team (Late st Contact Info) Description 07/04/2024 Orders Only [facility] 230 [place], [place] [phone] Jacoby Donald MD [address] [place], [place] [phone] Social History Tobacco Use Types Packs/Day Years [...] the past 12 months, has t he [employer], gas, oil or water company threatened to [...] Description 07/25/2024 2:15 PM EDT Office Visit [facility] MEDICINE [address] [place] [address] Jacoby Donald MD [address] [place] [address] 08/04/2024 11:00 AM EDT Office Visit [facility] MEDICINE [address] [place] [address] Juani Sosa ANP [address] [place] [address] documented as of this encounter Procedures Procedure Name Priority Date/Time Associated Diagnosis Comments HEPATIC FUNCTION PANEL Routine 07/04/2024 2:31 PM EDT documented in this encounter Results * Hepatic Function Panel (07/04/2024 2:31 PM EDT) Bilirubin, Direct 0.2 0.0 - 0.5 mg/dL [facility] 07/04/2024 2:31 PM EDT 07/04/2024 4:02 PM EDT us Jacoby Donald MD LAB BLOOD ORDERABLES Final Resul t [facility] [address] [place] [address] [phone] documented in this encounter Visit Diagnoses Not on filedocumented in this encounter Additional Health Concerns Assessment Noted Time PHQ-9 Depression Total Score: 16 025 11:09 AM EST documented as of this encounter Care Teams Sanitary Engineering Teacher Relationship Specialty Start Date End Date Juani Sosa ANP [address] [place] [address] PCP - General Family Medicine 02/11/22 Lilian Varghese Dope MixerAuto Design Detailer 07/02/23 documented as of this encounter
--- OUTSIDE RECORDS SUMMARY | 2024-07-04 16:51 | XMS_ITS | Encounter Summary ---
Author Organization [employer] Address [address] [facility] 7t [place] [address] Care Team Providers Care Associate Attorney Name Role Phone Juani Sosa Primary Care Provider [phone] Reason for Visit * Reason Onset Date Comments Med Refill 07/04/2024 Encounter Details Date Type Department Care Team ([facility] st Contact Info) Description 07/04/[address] [facility] MEDICINE [address] [place] [address] Nalini Blum RN Opioid use disorder Social [...] Description 07/25/2024 2:15 PM EDT Office Visit [facility] MEDICINE [address] [place] [address] Jacoby Donald MD [address] [place] [address] 08/04/2024 11:00 AM EDT Office Visit [facility] MEDICINE [address] [place] [address] Juani Sosa ANP [address] [place] [address] documented as of this encounter Visit Diagnoses Diagnosis Opioid use disorder documented in this encounter Additional Health Concerns Assessment Noted Time PHQ-9 Depression Total Score: 16 025 11:09 AM EST documented as of this encounter Care Teams Associate Attorney Relationship Specialty Start Date End Date Juani Sosa ANP [address] [place] [address] PCP - General Family Medicine 02/11/22 Lilian Varghese Director Data ProcessingSupervisor Sunglasses 07/02/23 documented as of this encounter
--- OUTSIDE RECORDS SUMMARY | 2024-07-04 16:51 | XMS_ITS | Encounter Summary ---
Author Organization [email or web address] Address [address] [facility] [address] 7t [place] [address] Care Team Providers Care Manganese Breaker Name Role Phone Juani Sosa Primary Care Provider [phone] Encounter Details Date Type Department Care Team (Late st Contact Info) Description 04/09/2023 Orders Only [facility] MEDICINE [address] [place] [address] Nalini Blum RN Uncomplicated opioid dependence (CMS/HCC) [...] [facility] MEDICINE [address] [place] [address] Jacoby Donald MD [address] [place] [address] 08/04/2024 11:00 AM EDT Office Visit [facility] MEDICINE [address] [place] [address] Juani Sosa ANP [address] [place] [address] Scheduled Orders Name Type Priority Associated Diagnoses [...] Syphilis Screen Lab Routine Uncomplicated opioid dependence ([facility]) Expected: 04/09/2023 (Approximate), Expires: 04/09/2024 [email or web address] Lab Routine Uncomplicated opioid dependence ([facility]/HCC) Expected: 04/09/2023 (Approximate), Expires: 04/09/2024 documented as of this encounter Visit Diagnoses Diagnosis Uncomplicated opioid dependence (CMS/HCC) documented in this encounter Additional Health Concerns Assessment Noted Time PHQ-9 Depression Total Score: 14 024 10:44 AM EST documented as of this encounter Care Teams Manganese Breaker Relationship Specialty Start Date End Date Juani Sosa ANP [address] [place] [address] PCP - General Family Medicine 02/11/22 Lilian Varghese Undercover OperatorLevi Maker 07/02/23 documented as of this encounter
--- OUTSIDE RECORDS SUMMARY | 2024-07-04 16:51 | XMS_ITS | Clinical Summary ---
Author Organization [employer] Address [address] [facility] [address] [place] [address] Care Team Providers Care Roving Frame Tender Name Role Phone Alona Crane Primary Care Provider [phone] Allergies Active Allergy Reactions Criticality Noted Date Comments Hydroxyzine High 06/19/2023 Other Reaction(s): reports redness and swelling Ibuprofen Swelling 11/03/2023 Lisinopril Angioedema 09/21/2020 Medications * This document contains information received from the source organization and may not represent a complete record from that organization. docusate sodium (Colace) 100 MG capsule TAKE [...] Use with albuterol 1 each 024 Active isosorbide mononitrate ER (Imdur) 30 MG 24 hr tablet Take 30 mg by mouth Once per day. 024 Active Aspirin Low Dose 81 MG EC tablet Take 81 mg by mouth Once per day. 024 Active Buprenorphine HCl-Naloxone HCl (Suboxone) 8-2 MG [...] allergic rhinitis due to other allergic trigger Mckenzie 2 sprays into each nostril every day [...] candidiasis. Do not swallow. 30 each 11 Active Buprenorphine HCl-Naloxone HCl (Suboxone) 8-2 MG SL filmIndications:O pioid use disorder Place 1 Film under the tongue 3 times daily for 21 days. 63 Film 025 2024 Active mineral oil-hydrophilic petrolatum (Aquaphor) ointmentIndicatio ns:Contact dermatitis, unspecified contact dermatitis type, unspecified trigger Apply topically if needed for dry skin. 396 g 024 2024 Buprenorphine HCl-Naloxone HCl (Suboxone) 8-2 MG SL filmIndications:O pioid use disorder Place 1 Film under the tongue 3 times daily for 14 days. 42 Film 025 2024 Discontinued(R eorder (will not trigger notification to Pharmacy)) Buprenorphine HCl-Naloxone HCl (Suboxone) 8-2 MG SL filmIndications:O pioid use disorder Place 1 Film under the tongue 3 times daily for 21 days. 63 Film 025 2024 Discontinued(R eorder (will not [...] think is appropriate to refer to an technical maintenance specialist she may require further testing. In the meantime I have recommended against the use of NSAIDS going forward and protect herself when outdoors. Since her symptoms are resolved no need for treatment at the moment. Pt has Zyrtec at home which she will continue to take. Abnormal nuclear stress test 08/05/2023 Acute bronchitis with chroni c obstructive pulmonary disease (COPD) ([facility]) 08/05/2023 History of left bundle branch block [...] retiring, pt will be referred to new [facility] Psychiatric provider. Pt is aware that appts will be via televisit and that provider will not be an [facility] employee. She gives permission to share [...] Date Resolved Date Depressive disorder 08/04/2022 05/17/19 25 Assessment & Plan (08/04/2022 11:19 AM EDT): [...] and Suboxone. She will also F/U with [facility] clinician Nilson and the supports of the [facility] program. F/U with me in 2-3 weeks. She agrees with the plan. Opioid abuse 07/02/2022 05/17/2024 Encounters * This document contains information received from the source organization and may not represent a complete record from that organization. Date Type Department Care Team Description 07/04/2024 1:30 PM EDT Telemedicine [facility] MEDICINE [address] [place] [phone] Jacoby Donald MD Uncomplicated opioid dependence (CMS/HCC) (Primary Dx) 07/04/2024 Orders Only [facility] [address] [place] [phone] Jacoby Donald MD 07/04/2024 Refill [facility] [address] [place] [phone] Nalini Blum, RN Opioid use disorder 07/04/2024 Travel 06/29/2024 Refill [facility] [address] [place] [phone] Nalini Blum, RN Opioid use disorder 06/13/2024 2:30 PM EDT Telemedicine [facility] [address] [place] [phone] Jacoby Donald MD Uncomplicated opioid dependence (CMS/HCC) (Primary Dx) 06/13/2024 Refill [facility] [place] [address] Nalini Blum RN Opioid use disorder 06/13/2024 Travel 06/07/2024 Telephone [facility] [place] [address] Alona Crane ANP No Show 06/06/2024 Telephone [facility] [place] [address] Alona Crane ANP Results 06/06/2024 Orders Only [facility] [place] [address] Alona Crane ANP Positive colorectal cancer screening using Cologuard test (Primary Dx) 06/03/2024 Population Health Risk Score [facility] () Department [address] [place] [phone] Provider, Population Health Generic 05/30/2024 2:45 PM EDT Office Visit [facility] [place] [address] Jacoby Donald MD Uncomplicated opioid dependence (CMS/HCC) (Primary Dx) 05/30/2024 Travel 05/25/2024 Refill [facility] [place] [address] Nalini Blum RN Opioid use disorder 05/17/2024 Refill [facility] [place] [address] Nalini Blum RN Opioid use disorder 05/16/2024 2:45 PM EST Telemedicine [facility] [place] [address] Jacoby Donald MD Uncomplicated opioid dependence (CMS/HCC) (Primary Dx) 05/16/2024 Telephone [facility] [place] [address] Marielos Almeida [place] 05/16/2024 Travel 05/06/2024 Telephone [facility] [place] [address] Alona Crane ANP Louis [employer] Placido Engagio (2 A4500 15-mmHg Black CT RTS L) 05/05/2024 Refill [facility] [place] [address] Nalini Blum RN Opioid use disorder 05/02/2024 1:30 PM EST Office Visit [facility] [address] [place] [phone] Alona Crane ANP Screening mammogram for breast cancer (Primary Dx); Moderate persistent asthma without complication; Bilateral leg edema; Screening for colon cancer; Chronic pain of both knees; Bilateral hand pain; Essential hypertension; Homeless; Screening for cervical cancer 05/02/2024 1:15 PM EST Office Visit [facility] [address] [place] [phone] Jacoby Donald MD Uncomplicated opioid dependence (CMS/HCC) (Primary Dx) 05/02/2024 Travel 05/02/[address] [address] Nalini Blum RN 05/02/[address] [address] Alona Crane ANP Epigastric pain 04/26/[address] [address] Nalini Blum RN Opioid use disorder 04/20/2024 Patient Outreach [address] [address] Alona Crane ANP Care Coordination (CHW outreach for SDOH housing search-referral completed ) 04/20/2024 Patient Outreach [address] [address] Alona Crane ANP Pre-visit Planning (SDOH Screening positive and Tobacco screening negative) 04/18/2024 2:15 PM EST Telemedicine [address] [address] Jacoby Donald MD Uncomplicated opioid dependence (CMS/HCC) (Primary Dx) 04/18/2024 Travel 04/13/2024 Refill [facility] [address] [place] [phone] Nalini Blum RN Opioid use disorder from Last 3 Months Immunizations Name Administration [...] with others, in a hotel, in a snf, living outside on the street, on a [...] PM EDT Office Visit [facility] [address] [place] [phone] Jacoby Donald MD [address] [place] [phone] 08/04/2024 11:00 AM EDT Office Visit [facility] [address] [place] [phone] Alona Crane ANP [address] [place] [address] Health Maintenance Due Date Last Done Comments CT Colonography 1965 Colonoscopy 1965 FIT 1965 Sigmoidoscopy 1965 Pap Smear 07/30/1987 Cervical Cancer Screening 1996 HPV/Cotest 1996 Pneumococcal Vaccine: 50+ Years (2 of 2 - PCV) 08/20/2015 08/19/2014 FOBT 11/07/2020 11/08/2019 Zoster Vaccines (2 of 2) 08/04/2023 06/09/2023 Influenza Vaccine (#1) 2024 , 01/09/2017, 01/24/2016, Additional history exists Postponed from 11/22/2023 (Patient Refused) Depression Monitoring 11/14/2024 05/17/2024, 025 Lipid Panel 04/03/2025 04/03/2020 SDOH Screening 04/20/2025 04/20/2024 Alcohol/Substance Use Screening 05/02/2025 05/02/2024 COVID-19 Vaccine ( season) 2025 11/01/2021, 11/01/2021, 04/12/2021, Additional history exists Postponed from 11/22/2023 (Patient Refused) Depression Screening 05/17/2025 05/17/2024, 05/17/19 Mammogram 06/17/2025 06/17/2024, 04/13/2018 Tobacco Screening 07/04/2025 07/04/2024 Colorectal Cancer Screening 05/28/2027 FIT DNA/Cologuard 05/28/2027 [...] Associated Diagnosis Comments HEPATIC FUNCTION PANEL Routine 2:31 PM EDT CBC WITH AUTO DIFFERENTIAL Routine 07/04/2024 2:31 PM EDT Bilateral leg edema TSH W/REFLEX TO FT4 Routine 07/04/2024 2 :31 PM EDT Bilateral leg edema COMPREHENSIVE METABOLIC PANEL Routine 07/04/2024 2:31 PM EDT Bilateral leg edema B TYPE NATRIURETIC PEPTIDE (BNP) Routine 07/04/2024 2:31 PM EDT Bilateral leg edema BI MAMMOGRAM SCREENING TOMOSYNTHESIS BILATERAL Routine 06/17/2024 2:15 PM EDT POCT JENNY-14 URINE DRUG SCREEN Routine 05/30/2024 2:57 PM EDT Uncomplicated opioid dependence (CMS/HCC) LAB COLOGUARD?? COLON CANCER SCREEN Routine 05/27/2024 2:49 PM EST Screening for colon cancer POCT JENNY-14 URINE DRUG SCREEN Routine 05/02/2024 1:17 PM EST Uncomplicated opioid dependence (CMS/HCC) LIPID PANEL, STANDARD Routine 04/03/2020 2:27 PM EST ZZZ HISTORICAL HEPATITIS C AB W/REFL TO HCV RNA, QN, PCR Routine 04/03/2020 2:26 PM EST HIV 1/2 ANTIGEN/ANTIBODY, FOURTH GENERATION W/RFL Routine 04/03/2020 2:26 PM EST OCCULT BLOOD, FECAL, IMMUNOASSAY Routine 11/08/2019 11:25 AM EDT from Last 3 Months or Most Recently Relevant to Health Maintenance Results * TSH W/Reflex to FT4 (07/04/2024 2:31 PM EDT) TSH reflex Free T4 1.14 0.32 - 4.0 uIU/mL [facility] Blood Venous blood specimen / Unknown 07/04/2024 2:31 PM EDT 07/04/2024 4:02 PM EDT [facility] LAB BLOOD ORDERABLES Final Resul t [facility] [address] [place] [phone] * (ABNORMAL) CBC auto differential (07/04/2024 2:31 PM EDT) Pathologist [facility] White Blood Count 8.5 4.8 - 10.8 X10*3/uL [facility] Red Blood Count 4.57 4.20 - 5.50 X10*6/uL [facility] Hemoglobin 12.6 12.0 - 16.0 g/dl [facility] Hematocrit 39.0 37.0 - 47.0 % [facility] Mean Corpuscular Volume 85.3 80.0 - 98.0 fL [facility] Mean Corpuscular Hemoglobin 27.6 27.0 - 33.0 pg [facility] Mean Corpuscular HGB Conc 32.3 31.0 - 35.0 g/dl [facility] Red Cell Distribution Width 12.9 11.0 - 16.0 % [facility] Platelet Count 357 160 - 400 X10*3/uL [facility] Mean Platelet Volume 9.9 9.4 - 12.3 fL [facility] Neutrophils Percent Auto 61.9 45 - 73 % [facility] Imm Gran Pct Auto 0.2 0.0 - 0.4 % [facility] Lymphocytes Percent Auto 23.9 20 - 40 % [facility] Monocytes Percent Auto 5.3 2 - 11 % [facility] Eosinophils Percent Auto 8.0(H) 0 - 4 % [facility] Basophils Percent Auto 0.7 0 - 2 % [facility] NRBC Pct Auto 0.0 0.0 - 0.2 /100WBC [facility] Neutrophils Absolute Auto 5.3 2.0 - 8.3 x10*3/uL [facility] Imm Gran Abs Auto 0.02 0.00 - 0.03 X10*3/uL [facility] Lymphocytes Absolute Auto 2.0 1.2 - 4.9 X10*3/uL [facility] Monocytes Absolute Auto 0.5 0.1 - 1.2 X10*3/uL [facility] Eosinophils Absolute Auto 0.7(H) 0.0 - 0.4 X10*3/uL [facility] Basophils Absolute Auto 0.1 0.0 - 0.2 X10*3/uL [facility] NRBC Abs Auto 0.000 0.0 - 0.012 X10*3/uL [facility] Blood Venous blood specimen / Unknown 07/04/2024 2:31 PM EDT 07/04/2024 4:02 PM EDT Alona Crane [facility] LAB BLOOD ORDERABLES Final Resul t [facility] [address] [place] [address] [phone] * B Type Natriuretic Peptide (BNP) (07/04/2024 2:31 PM EDT) B Type Natriuretic Peptide 54 <100 pg/mL [facility] Blood Venous blood specimen / Unknown 07/04/2024 2:31 PM EDT 07/04/2024 3:58 PM EDT us Alona MOSCOSO LAB BLOOD ORDERABLES Final Resul t Performing Organization Address City/[facility]/ZIP Co de Phone Number [facility] [address] [place] [phone] * Hepatic Function Panel (07/04/2024 2:31 PM EDT) Bilirubin, Direct 0.2 0.0 - 0.5 mg/dL [facility] 07/04/2024 2:31 PM EDT 07/04/2024 4:02 PM EDT us Jacoby Donald MD LAB BLOOD ORDERABLES Final Resul t Performing Organization Address [facility] Co de Phone Number [facility] [address] [place] [phone] * (ABNORMAL) Comprehensive Metabolic Panel (07/04/2024 2:31 PM EDT) Sodium 139 135 - 145 mmol/L [facility] Potassium 3.8 3.3 - 5.1 mmol/L [facility] Chloride 102 96 - 108 mmol/L [facility] Carbon Dioxide 28 22 - 29 mmol/L [facility] Anion Gap 13 12 - 20 [facility] Urea Nitrogen (BUN) 15 9 - 16 mg/dL [facility] Creatinine, Serum 0.77 0.5 - 1.4 mg/dL [facility] Estimated Glomerular Filt Rate >60 [facility] Comment:Chronic Kidney Disea se: Estimated GFR < 60 mL/min/1.56h4Noxhfd Kidney Disease: Estimated GFR < 15 mL/min/1.73m2 Glucose 183(H) 60 - 115 mg/dL [facility] Calcium 9.7 8.4 - 10.2 mg/dL [facility] Bilirubin, Total 0.4 0.0 - 1.0 mg/dL [facility] Aspartate Amino Transferase 31 5 - 31 U/L [facility] Alanine Aminotransferase 27 0 - 31 U/L [facility] Total Protein 8.3(H) 6.5 - 8.0 g/dL [facility] Albumin Level 4.2 3.5 - 5.0 g/dL [facility] Alkaline Phosphatase 174(H) 39 - 117 U/L [facility] Blood Venous blood specimen / Unknown 07/04/2024 2:31 PM EDT 07/04/2024 4:02 PM EDT us Alona Crane ANP LAB BLOOD ORDERABLES Final Resul t [facility] [address] [place] [address] [phone] * BI Mammogram Screening Tomosynthesis Bilateral (06/17/2024 2:15 PM EDT) Anatomical Region Laterality Modality Breast Bilateral Mammography 06/17/2024 2:15 PM EDT Narrative 06/25/2024 3:10 PM EDT ? [facility] [place] ? [address] ?[place] [address] ?[phone] ? Mammography Report ? Signed ? Patient: Arteaga,Gaby ?MR#: [id number] ?? 46 ? : 1965 ?Acct:[id number] ? Age/Sex: 58 / F ?ADM Date: //25 ? Loc: HO.MAMMO ? Attending Dr: Alona Crane DICE MANAGER ? Ordering Physician: ALONA CRANE NP ?Results: 1Negative ? Date of Service: 06/17/24 ?Follow Up: 1 Year From Orig ?? inal Mammogram ? Procedure(s): MM tomosynthesis screening BI ?? Accession Number(s): [id number] ? cc: ROSA MARIA,ALONA GARDNER ? EXAMINATION: ?? MM SCREENING DIGITAL BREAST TOMOSYNTHESIS, BILATERAL ? CLINICAL INFORMATION: ? Screening. Asymptomatic. ? COMPARISON: ?? Mammography: No prior imaging is available on PACS at this time. ? TECHNIQUE: ?? Digital breast mammography with tomosynthesis is performed in both the ?? craniocaudal and mediolateral oblique views along with computer-aided ?? detection (CAD). ? FINDINGS: ?? There are scattered areas of fibroglandular density (ACR BI-RADS breast ?? composition Category b). ? There are no significant masses, abnormal calcifications, or other ?? abnormalities. ? MM/MM tomosynthesis screening BI ?? IMPRESSION: ?? No mammographic evidence of malignancy. ? ASSESSMENT: ? BI-RADS BI-RADS 1 - Negative ? RECOMMENDATION: ?? Routine annual mammography screening. ? 1 year F/U ? This examination should not preclude the clinical evaluation of a ?? suspicious palpable abnormality. ? This patient's information was entered into a reminder system with a ?? target due date for their next mammogram. ? Electronically signed by: ??Carleen Cedeno DO ??06/25/2024 03:06 PM EDT ?? RP ? Dictated By: ?Carleen Cedeno DO ? Signed By: ?<Electronically signed by Carleen Cedeno, DO in OV> ? 06/25/24 1506 ? DD/ 1415 ? TD/TT: 06/17/24 1440 ? Cash Control Specialist: ? Procedure Note Alexi Vogt - 06/25/2024 [place] [facility] [address] [place], [place] [address] Mammography Report Signed Patient: Wyatt Arteaga#: [id number] 46 : 1965Acct:[id number] Age/Sex: 58 / FADM Date: 06/17/24 Loc: HO.MAMMO Attending Dr: Alona Crane NP Ordering Physician: ALONA CRANE NPResults: 1Negative Date of Service: 06/17/24Follow Up: 1 Year From Orig inal Mammogram Procedure(s): MM tomosynthesis screening BI Accession Number(s): [id number] cc: ALONA CRANE NP EXAMINATION: MM SCREENING DIGITAL BREAST TOMOSYNTHESIS, BILATERAL CLINICAL INFORMATION: Screening. Asymptomatic. COMPARISON: Mammography: No prior imaging is available on PACS at this time. TECHNIQUE: Digital breast mammography with tomosynthesis is performed in both the craniocaudal and mediolateral oblique views along with computer-aided detection (CAD). FINDINGS: There are scattered areas of fibroglandular density (ACR BI-RADS breast composition Category b). There are no significant masses, abnormal calcifications, or other abnormalities. MM/MM tomosynthesis screening BI IMPRESSION: No mammographic evidence of malignancy. ASSESSMENT: BI-RADS BI-RADS 1 - Negative RECOMMENDATION: Routine annual mammography screening. 1 year F/U This examination should not preclude the clinical evaluation of a suspicious palpable abnormality. This patient's information was entered into a reminder system with a target due date for their next mammogram. Electronically signed by: Carleen Cedeno DO 06/25/2024 03:06 PM EDT Dictated By: Carleen Cedeno DO Signed By: <Electronically signed by Carleen Cedeno DO in OV> 06/25/24 1506 DD/ 1415 TD/TT: 06/17/24 1440 Cash Control Specialist: Alona Crane ANP IMG BI PROCEDURES Edited Result - Final * POCT JENNY-14 Urine Drug Screen (05/30/2024 2:57 PM EDT) Only the most recent of2 resultswithin the time period is included. THC [...] Positive( A) Negative 06/04/2024 5:36 PM EDT [facility] (CLIA #:[id number]) Comment: POSITIVE TEST RESULT. A positive Cologuard [...] screened with both Cologuard and colonoscopy. (Roverto Camargo al, N Engl J Med 2014;370(14):2811-2248.) Cologuard may produce a false negative or false positive result (no colorectal cancer or precancerous polyp present at colonoscopy follow up). A negative Cologuard test result does not guarantee the absence of CRC or advanced adenoma (pre-cancer). The current Cologuard screening interval is every 3 years. ([place] [employer] Society and U.S. Multi-Society Task Force). Cologuard performance data in a 10,000 patient pivotal study using colonoscopy as the reference method can be accessed at the following location: www.[employer]results. Additional description of the Cologuard test process, warnings and precautions can be found at www.AVdirectrd.com. Stool specimen (specimen) 05/27/2024 2:49 PM EST 05/29/2024 11:29 PM EDT [facility] MOLECULAR DIAGNOSTICS ORDERA BLE Final Result [facility] (CLIA #:[id number]) [place] [address], * (ABNORMAL) LIPID PANEL, STANDARD (04/03/2020 2:27 PM EST) Chol/HDLC Ratio 3.5 <5.0 (calc) [facility] Cholesterol, Total 220(H) <200 mg/dL [facility] HDL Cholesterol 63 > OR = 50 mg/dL [facility] LDL Cholesterol 129(H) mg/dL (calc) [facility] Comment: Reference range: <100 ?? [...] ?? Faustino MCLAIN et al. NICHOLAS. 2013;310(19): 6679-4082 ?? (http://education.SP3H/faq/IRK523) Non-HDL Cholesterol 157(H) <130 mg/dL (calc) [facility] Comment: For patients with diabetes plus 1 major ASCVD risk ?? factor, treating to a non-HDL-C goal of <100 mg/dL ?? (LDL-C of <70 mg/dL) is considered a therapeutic ?? option. Triglycerides 165(H) <150 mg/dL [facility] 04/03/2020 2:27 PM EST Syed Hardy MD LAB BLOOD ORDERABLES Final Resul t Performing Organization Address [facility] Co de Phone Number [facility] [address] [place] [address], * HEPATITIS C AB W/REFL TO HCV RNA, QN, PCR (04/03/2020 2:26 PM EST) HEPATITIS C ANTIBODY NON-REACT BATSHEVA NON-REACT BATSHEVA [facility] INDEX 0.04 <1.00 [facility] Comment: ?? HCV antibody was non-reactive. There is no laboratory ?? evidence of HCV infection. ?? In most cases, no further action is required. However, if recent HCV exposure is suspected, a test for HCV RNA (test code 68644) is suggested. ?? For additional information please refer to http://education.[employer]paris/faq/IFE78r9 (This link is being provided for informational/ educational purposes only.) ?? 04/03/2020 2:26 PM EST Hyacinth Alvarez MD HISTORICAL/NON ORDERABLE LABS Fi nal Result Performing Organization Address [facility] Co de Phone Number [facility] [address] [place] [address], * HIV 1/2 ANTIGEN/ANTIBODY,FOURTH GENERATION W/RFL (04/03/2020 [...] ? For additional information please refer to http://education.[employer]/faq/ZUP657 (This link is being provided for informational/ educational purposes only.) ? The performance of this assay has not been clinically validated in patients less than 2 years old. ?? 04/03/2020 2:26 PM EST Hyacinth Alvarez MD LAB BLOOD ORDERABLES Final Resul t Performing Organization Address [facility] Phone Number [facility] [address] * (ABNORMAL) OCCULT BLOOD STOOL (11/08/2019 11:25 AM EDT) OCCULT BLOOD STOOL POS(AA) NEG [facility] 11/08/2019 11:2 5 AM EDT us Historical Provider LAB BODY FLUIDS AND STOOL S ORDERABLES Final Result Performing Organization Address [facility] Phone Number [facility] [address] from Last 3 Months or Most Recently Relevant to Health Maintenance Insurance [facility] C3 Care Teams Roving Frame Tender Relationship Specialty Start Date End Date Alona Crane ANP [address] [place] [phone] PCP - General Family Medicine 02/11/22 Lilian Varghese Lending ManagerMedia Reconciliation Specialist 07/02/23
--- OUTSIDE RECORDS SUMMARY | 2024-07-04 16:51 | XMS_ITS | Encounter Summary ---
Author Organization [employer] Address [address] [facility] [address] [place] [address] Care Team Providers Care Busher Helper Name Role Phone Juani Sosa Primary Care Provider [phone] Encounter Details Date Type Department Care Team (Late st Contact Info) Description 08/07/2023 Orders Only [facility] [address] [place], [place] [phone] Leeanne Mandel FNP Social History Tobacco Use [...] Description 07/25/2024 2:15 PM EDT Office Visit [facility] [address] [place] [phone] Jacoby Donald MD [address] [place] [phone] 08/04/2024 11:00 AM EDT Office Visit [facility] [address] [place] [phone] Juani Sosa ANP [address] [place] [address] documented as of this encounter Visit Diagnoses Not on filedocumented in this encounter Additional Health Concerns Assessment Noted Time PHQ-9 Depression Total Score: 10 024 10:06 AM EST documented as of this encounter Care Teams Busher Helper Relationship Specialty Start Date End Date Juani Sosa ANP [address] [place] [phone] PCP - General Family Medicine 02/11/22 Lilian Varghese Sewer BricklayerMold Holder 07/02/23 documented as of this encounter
--- OUTSIDE RECORDS SUMMARY | 2024-07-04 16:51 | XMS_ITS | Encounter Summary ---
Author Organization [employer] Address [address] [facility] 7t [place] [address] Care Team Providers Care Hosiery Mender Name Role Phone Juani Sosa Primary Care Provider [phone] Reason for Visit * Reason Onset Date Comments Durable Medical Equipment 02/17/2023 Edvin Encounter Details Date Type Department Care Team ([facility] Contact Info) Description 02/17/2023 Telephone [facility] [address] [place], [place] [phone] Juani Sosa ANP [address] [place] [address] Durable Medical Equipment (Walker) Social History Tobacco [...] Walker states requested back in November however greeting card writer does not see it on patients chart. documented in this encounter Plan of Treatment Upcoming Encounters Date Type Department Care Team (Late st Contact Info) Description 07/25/2024 2:15 PM EDT Office Visit [facility] [address] [place] [phone] Jacoby Donald MD [address] [place] [address] 08/04/2024 11:00 AM EDT Office Visit [facility] [address] [place] [address] Juani Sosa ANP [address] [place] [address] documented as of this encounter Visit Diagnoses Not on filedocumented in this encounter Additional Health Concerns Assessment Noted Time PHQ-9 Depression Total Score: 16 023 9:58 AM EDT documented as of this encounter Care Teams Hosiery Mender Relationship Specialty Start Date End Date Juani Sosa ANP [address] [place] [address] PCP - General Family Medicine 02/11/22 Lilian Varghese Molded Frames AssemblerOffice Assistance 07/02/23 documented as of this encounter
--- OUTSIDE RECORDS SUMMARY | 2024-07-04 16:52 | XMS_ITS | Encounter Summary ---
Author Organization [employer] Address [address] [facility] 7t [place] [address] Care Team Providers Care Biomedical Equipment Technician Name Role Phone Juani Sosa Primary Care Provider [phone] Reason for Visit * Reason Onset Date Comments ER Follow-up 11/10/2023 Encounter Details Date Type Department Care Team ([facility] Contact Info) Description 11/10/2023 Telephone [facility] [address] [place], [place] [phone] Juani Sosa ANP [address] [place] [address] ER Follow-up Social History Tobacco Use Types [...] ED visit on : Date: 11/09/23 Hospital: [facility] Seen for: Chest Pain, breathing trouble, and Leg swelling. Patient advised will forward to team nurse for follow up documented in this encounter Plan of Treatment Upcoming Encounters Date Type Department Care Team (Late st Contact Info) Description 07/25/2024 2:15 PM EDT Office Visit [facility] [address] [place] [phone] Jacoby Donald MD [address] [place] [address] 08/04/2024 11:00 AM EDT Office Visit [facility] [address] [place] [address] Juani Sosa ANP [address] [place] [address] documented as of this encounter Visit Diagnoses Not on filedocumented in this encounter Additional Health Concerns Assessment Noted Time PHQ-9 Depression Total Score: 9 10/06/19 24 11:29 AM EDT documented as of this encounter Care Teams Biomedical Equipment Technician Relationship Specialty Start Date End Date Juani Sosa ANP [address] [place] [address] PCP - General Family Medicine 02/11/22 Lilian Varghese Coffee SupervisorLidar Technician 07/02/23 documented as of this encounter
--- OUTSIDE RECORDS SUMMARY | 2024-07-04 16:52 | XMS_ITS | Encounter Summary ---
Author Organization [employer] Address [address] [facility] [address] [place] [address] Care Team Providers Care Table Attendant Name Role Phone Juani Sosa Primary Care Provider [phone] Reason for Visit * Reason Comments Med Change Request Encounter Details Date Type Department Care Team ([facility] Contact Info) Description 01/13/2023 Refill [facility] [address] [place], [place] [phone] Jacoby Donald MD [address] [place] [address] Social History Tobacco Use Types Packs/Day Years [...] 2:15 PM EDT Office Visit [facility] [address] [place] [address] Jacoby Donald MD [address] [place] [address] 08/04/2024 11:00 AM EDT Office Visit [facility] [address] [place] [address] Juani Sosa ANP [address] [place] [phone] documented as of this encounter Visit Diagnoses Not on filedocumented in this encounter Additional Health Concerns Assessment Noted Time PHQ-9 Depression Total Score: 16 023 9:58 AM EDT documented as of this encounter Care Teams Table Attendant Relationship Specialty Start Date End Date Juani Sosa ANP [address] [place] [phone] PCP - General Family Medicine 02/11/22 Lilian Varghese Car PackerBuildings And Grounds Director 07/02/23 documented as of this encounter
[2024-07-05 08:20] LABS: Hepatitis A Antibody IgG REACTIVE (Nonreactive); ~Hepatitis A Antibody IgG 2.12 S/CO (0.00-0.99)
[2024-07-05 08:21] LABS: Syphilis Screen Nonreactive (Nonreactive)
[2024-07-05 08:25] LABS: HBS Num1 > 1000.00 mIU/mL (0-7.99); HBc Num1 0.12 S/CO (0.00-0.79); HBsAGNum1 0.26 S/CO (0.00-0.99); HIV AB/AG Nonreactive (Nonreactive); HIV Num 1 0.07 S/CO (0.00-0.99); Hepatitis B Core Antibody Nonreactive (Nonreactive); Hepatitis B Surface Antigen Negative (Negative); ~Hepatitis B Surface Antibody REACTIVE (Nonreactive); ~Hepatitis C Antibody Nonreactive (Nonreactive)
[2024-07-05 09:50] LABS: Estimated Average Glucose 123 mg/dL; Hemoglobin A1c % 5.9 % (<6.0); Total Hemoglobin (HGBA1C) 3274.9949 umol/L
[2024-07-06 20:38] LABS: TS Negative Control Passed; TS Panel A 0; TS Panel B 0; TS Positive Control Passed; TSpotTB Negative (Negative)
== END 2024-07-04 14:29 | disposition home or self-care (01) ==
LOC: HO.HHCL 14:28
PROVIDERS: Emergency Medicine; Visit Provider Nurse Practitioner Primary Care
DX: F11.20 Opioid dependence, uncomplicated (principal); R60.0 Localized edema; Z11.59 Encounter for screening for other viral diseases
CPT/HCPCS: 36415; 80053; 80076; 82248; 83036; 83880; 84443; 85025; 86481; 86704; 86706; 86708; 86780; 86803; 87340; 87389

== ENCOUNTER 2024-07-21 13:11 | Outpatient (REF) | payer MEDICAID, SELFPAY ==
--- NOTE | ~2024-07-21 | XR_ITS ---
EXAMINATION: XR HAND 3 OR MORE VIEWS RIGHT, XR WRIST 3 OR MORE VIEWS RIGHT HISTORY: right wrist and hand pain COMPARISON: There are no prior studies available for comparison. FINDINGS: Eight views of the right hand and wrist, including a scaphoid view of the wrist are submitted. Osseous mineralization is normal. There is no fracture or dislocation. The joint spaces are preserved. The soft tissues are unremarkable. XR/XR hand RT min 3V IMPRESSION: Unremarkable examination of the right hand and wrist. Electronically signed by: Darío Galindo MD 07/22/2024 10:48 AM EDT
--- NOTE | ~2024-07-21 | XR_ITS ---
EXAMINATION: XR HAND 3 OR MORE VIEWS RIGHT, XR WRIST 3 OR MORE VIEWS RIGHT HISTORY: right wrist and hand pain COMPARISON: There are no prior studies available for comparison. FINDINGS: Eight views of the right hand and wrist, including a scaphoid view of the wrist are submitted. Osseous mineralization is normal. There is no fracture or dislocation. The joint spaces are preserved. The soft tissues are unremarkable. XR/XR wrist RT min 3V IMPRESSION: Unremarkable examination of the right hand and wrist. Electronically signed by: Darío Galindo MD 07/22/2024 10:48 AM EDT
[2024-07-21 13:21] LABS: MANUAL DIFF FLAG NO
[2024-07-21 14:17] LABS: Basophils Absolute Auto 0.1 X10*3/uL (0.0-0.2); Basophils Percent Auto 0.8 % (0-2); Eosinophils Absolute Auto 0.5 X10*3/uL (0.0-0.4); Eosinophils Percent Auto 6.7 % (0-4); Hematocrit 38.6 % (37.0-47.0); Hemoglobin 12.4 g/dl (12.0-16.0); Imm Gran Abs Auto 0.03 X10*3/uL (0.00-0.03); Imm Gran Pct Auto 0.4 % (0.0-0.4); Lymphocytes Absolute Auto 1.7 X10*3/uL (1.2-4.9); Lymphocytes Percent Auto 24.1 % (20-40); Mean Corpuscular HGB Conc 32.1 g/dl (31.0-35.0); Mean Corpuscular Hemoglobin 27.3 pg (27.0-33.0); Mean Corpuscular Volume 84.8 fL (80.0-98.0); Mean Platelet Volume 9.3 fL (9.4-12.3); Monocytes Absolute Auto 0.5 X10*3/uL (0.1-1.2); Monocytes Percent Auto 6.8 % (2-11); Neutrophils Absolute Auto 4.4 x10*3/uL (2.0-8.3); Neutrophils Percent Auto 61.2 % (45-73); Platelet Count 400 X10*3/uL (160-400); Red Blood Count 4.55 X10*6/uL (4.20-5.50); Red Cell Distribution Width 12.9 % (11.0-16.0); White Blood Count 7.2 X10*3/uL (4.8-10.8)
[2024-07-21 14:44] LABS: Estimated Average Glucose 120 mg/dL; Hemoglobin A1C 130.5209 umol/L; Hemoglobin A1c % 5.8 % (<6.0); Total Hemoglobin (HGBA1C) 3240.7697 umol/L
[2024-07-21 14:49] LABS: Uric Acid 6.1 mg/dL (2.4-5.7)
--- OUTSIDE RECORDS SUMMARY | 2024-07-21 15:34 | XMS_ITS | Encounter Summary ---
Author Organization [employer] Address [address] [facility] [facility] [address] [place] [address] Care Team Providers Care Sawdust Drier Name Role Phone Juani Sosa Primary Care Provider [phone] Reason for Visit * Reason Onset Date Comments Med Refill Appointment 09/10/2023 [facility] Encounter Details Date Type Department Care Team (Late st Contact Info) Description 09/10/2023 Refill [facility] [address] [place] [address] Rafael Shahid FNP Social History Tobacco Use [...] prescriber. Abhi-schedule an apt for 10/06/23 as [id number] documented in this encounter Plan of Treatment Upcoming Encounters Date Type Department Care Team (Late st Contact Info) Description 07/25/2024 2:15 PM EDT Office Visit [facility] [address] [place] [phone] Jacoby Donald MD [address] [place] [phone] 08/04/2024 11:00 AM EDT Office Visit [facility] [address] [place] [address] Juani Sosa ANP [address] [place] [phone] 09/05/2024 1:00 PM EDT Office Visit [facility] [address] [place] [address] Jacoby Donald MD [address] [place] [address] documented as of this encounter Visit Diagnoses Not on filedocumented in this encounter Additional Health Concerns Assessment Noted Time PHQ-9 Depression Total Score: 10 04/28/ 024 10:06 AM EST documented as of this encounter Care Teams Sawdust Drier Relationship Specialty Start Date End Date Juani Sosa ANP [address] [place] [address] PCP - General Family Medicine 02/11/22 Lilian Varghese Millinery Department ManagerActing Professor 07/02/23 documented as of this encounter
--- OUTSIDE RECORDS SUMMARY | 2024-07-21 15:34 | XMS_ITS | Clinical Summary ---
Author Organization [employer] Address [address] [facility] [address] [place] [address] Care Team Providers Care Extractor Filler Name Role Phone Alona Crane Primary Care Provider [phone] Allergies Active Allergy Reactions Criticality Noted Date [...] allergic rhinitis due to other allergic trigger [place] 2 sprays into each nostril every day [...] of breath or wheezing. 18 g 2 Active Diclofenac Sodium (Voltaren) 1 % gelIndications:Ch ronic pain of both knees,Bilateral hand pain Apply 2g up to 4x/d to affected joint(s) for pain/swelling 100 g 2 Active hydroCHLOROthiazi de (HYDRODiuril) 25 MG tabletIndications [...] Do not swallow. 30 each 11 Active predniSONE (Deltasone) 20 MG tabletIndications :Asthma Take 3 tablets (60 mg) by mouth Once per day for 3 days, THEN 2 tablets (40 mg) Once per day for 3 days, THEN 1 tablet (20 mg) Once per day for 2 days, THEN 0.5 tablets (10 mg) Once per day for 2 days. 18 tablet 025 2024 Active acetaminophen (Tylenol Extra Strength) 500 MG tabletIndications :Right wrist pain Take 1 tablet (500 mg) by mouth every 6 (six) hours if needed for mild pain for up to 10 days. 30 tablet 025 2024 Active Buprenorphine HCl-Naloxone HCl (Suboxone) 8-2 MG SL filmIndications:O pioid use disorder Place 1 Film under the tongue 3 times daily. 63 Film 1 025 2024 Active mineral oil-hydrophilic petrolatum (Aquaphor) [...] eorder (will not trigger notification to Pharmacy)) predniSONE (Deltasone) 20 MG tabletIndications :Asthma Take 3 tablets (60 mg) by mouth Once per day for 3 days, THEN 2 tablets (40 mg) Once per day for 3 days, THEN 1 tablet (20 mg) Once per day for 2 days, THEN 0.5 tablets (10 mg) Once per day for 2 days. 18 tablet 025 2024 Discontinued(R eorder (will not trigger notification to Pharmacy)) acetaminophen (Tylenol Extra Strength) 500 MG tabletIndications :Right wrist pain Take 1 tablet (500 mg) by mouth every 6 (six) hours if needed for mild pain for up to 10 days. 30 tablet 025 2024 Discontinued(R eorder (will not trigger notification to Pharmacy)) Active Problems Problem Noted Date Diagnosed Date Right wrist pain 07/16/2024 Assessment & Plan (07/16/2024 11:33 AM EDT): Pt here with c/o new onset of right wrist pain, moderate intensity, no trauma On exam she has tenderness to palpation, decreased rom, no redness, no swelling, no warmth, pulses are normal, so is sensation Etiology? Gout ? , VS OA, VS CTS Plan: Splinting with cock up wrist splint, Pt cannot take NSAIDS, will give a prednisone taper, obtain CBC and Uric acid as well as plain films and NCS If no improvement, pt asked to come back Chronic pain of both knees 05/02/2024 Sinusitis 12/31/2023 Assessment & Plan (12/31/2023 2:35 PM EDT): Moderate congestion on exam. Reports sins congestion and pressure x2 months. Denies previous abx treatment. Dicussed treating with abx today. -prescribed Amoxicillin 500 mg 12/31/23 -prescribed Fluticasone nasal spray 10/10/24 Constipation by delayed colonic transit 11/24/19 24 Primary osteoarthritis of right knee 11/24/2023 Allergic [...] think is appropriate to refer to an coronary clinical specialist she may require further testing. In [...] disease (COPD) ([facility]) 08/05/2023 History of left bundle branch [...] retiring, pt will be referred to new [facility] Psychiatric provider. Pt is aware that appts will be via televisit and that provider will not be an [facility] employee. She gives permission to share [...] organization. Date Type Department Care Team Description 07/21/2024 Orders Only [facility] MEDICINE [address] [place] [phone] Alona Crane ANP 07/21/2024 Telephone [facility] [address] [place] [phone] Alona Crane ANP Med Refill 07/18/2024 Telephone [facility] [address] [place] [phone] Alona Crane ANP Med Refill 07/18/[address] [address] Nalini Blum RN Opioid use disorder 07/16/2024 11:00 AM EDT Office Visit [facility] [address] [place] [phone] Maxwell Denson MD Right wrist pain (Primary Dx) 07/05/2024 Orders Only [facility] [address] [place] [phone] Alona Crane ANP Elevated glucose level (Primary Dx) 07/04/2024 1:30 PM EDT Telemedicine [facility] [address] [place] [phone] Jacoby Donald MD Uncomplicated opioid dependence (CMS/HCC) (Primary Dx) 07/04/2024 Orders Only [facility] [address] [place] [address] Jacoby Donald MD 07/04/2024 Refill [facility] [address] [place] [address] Nalini Blum RN Opioid use disorder 07/04/2024 Travel 06/29/2024 Refill [facility] [address] [facility] [place] [address] Nalini Blum RN Opioid use disorder 06/13/2024 2:30 PM EDT Telemedicine [facility] [place] [address] Jacoby Donald MD Uncomplicated opioid dependence (CMS/HCC) (Primary Dx) 06/13/2024 Refill [facility] [place] [address] Nalini Blum RN Opioid use disorder 06/13/2024 Travel 06/07/2024 Telephone [facility] [place] [address] Alona Crane ANP No Show 06/06/2024 Telephone [facility] [place] [address] Alona Crane ANP Results 06/06/2024 Orders Only [facility] [place] [address] Alona Crane, ANP Positive colorectal cancer screening using Cologuard test (Primary Dx) 06/03/2024 Population Health Risk Score [facility] () Department [address] [place] [address] [phone] Provider, Population Health Generic 05/30/2024 2:45 PM EDT Office Visit [facility] [place] [address] Jacoby Donald MD Uncomplicated opioid dependence (CMS/HCC) (Primary Dx) 05/30/2024 Travel 05/25/2024 Refill [facility] [place] [address] Nalini Blum RN Opioid use disorder 05/17/2024 Refill [facility] [address] [place] [address] Nalini Blum RN Opioid use disorder 05/16/2024 2:45 PM EST Telemedicine [address] [phone] Jacoby Donald MD Uncomplicated opioid dependence (CMS/HCC) (Primary Dx) 05/16/[address] [address] Marielos Almeida [place] 05/16/2024 Travel 05/06/[address] [address] Alona Crane ANP Advaction (2 A4500 15-mmHg Black CT RTS L) 05/05/2024 Refill [facility] [address] [place] [address] Nalini Blum RN Opioid use disorder 05/02/2024 1:30 PM EST Office Visit [address] [phone] Alona Crane ANP Screening mammogram for breast cancer (Primary Dx); Moderate persistent asthma without complication; Bilateral leg edema; Screening for colon cancer; Chronic pain of both knees; Bilateral hand pain; Essential hypertension; Homeless; Screening for cervical cancer 05/02/2024 1:15 PM EST Office Visit [address] [address] Jacoby Donald MD Uncomplicated opioid dependence (CMS/HCC) (Primary Dx) 05/02/2024 Travel 05/02/2024 Telephone [facility] [address] [place] [address] Nalini Blum RN 05/02/2024 Refill [facility] [address] [place] [address] Alona Crane ANP Epigastric pain 04/26/2024 Refill [facility] [address] [place] [address] [phone] Nalini Blum RN Opioid use disorder from [...] with others, in a hotel, in a nursing home, living outside on the street, on [...] Sign Reading Time Taken Comments Blood Pressure 124/75 07/16/2024 10:49 AM EDT Pulse 88 07/16/2024 10:49 AM EDT Temperature 37.2 ??C (98.9 ??F) 07/16/2024 10:49 AM E DT Respiratory Rate 16 07/16/2024 10:49 AM EDT Oxygen Saturation 92% 07/16/2024 10:49 AM EDT Inhaled Oxygen Concentration - - Weight 102 kg (225 lb) 07/16/2024 10:49 AM EDT Height 157.5 cm (5' 2 ) 07/16/2024 10:49 AM EDT Body Mass Index 41.15 07/16/2024 10:49 AM EDT Plan of Treatment Upcoming Encounters Date Type Department Care Team (Late st Contact Info) Description 07/25/2024 2:15 PM EDT Office Visit [facility] [address] [place] [phone] Jacoby Donald MD [address] [place] [phone] 08/04/2024 11:00 AM EDT Office Visit [facility] [address] [place] [phone] Alona Crane ANP [address] [place] [address] 09/05/2024 1:00 PM EDT Office Visit [facility] [address] [place] [address] Jacoby Donald MD [address] [place] [address] Health Maintenance Due Date Last Done Comments CT Colonography 1966 Colonoscopy 1966 FIT 1966 Sigmoidoscopy 1966 Pap Smear 07/30/1987 Cervical Cancer Screening 1996 HPV/Cotest 1996 Pneumococcal Vaccine: 50+ Years (2 of 2 - PCV) 08/20/2015 08/19/2014 FOBT 11/07/2020 11/08/2019 Zoster Vaccines (2 of 2) 08/04/2023 06/09/2023 Influenza Vaccine (#1) 2024 , 01/09/2017, 01/24/2016, Additional history exists Postponed from 11/22/2023 (Patient Refused) Lipid Panel 04/03/2025 04/03/2020 SDOH Screening 04/20/2025 04/20/2024 Alcohol/Substance Use Screening 05/02/2025 05/02/2024 COVID-19 Vaccine ( season) 2025 11/01/2021, 11/01/2021, 04/12/2021, Additional history exists Postponed from 11/22/2023 (Patient Refused) Depression Screening 05/17/2025 05/17/2024, 05/17/19 25 Mammogram 06/17/2025 06/17/2024, 04/13/2018 Tobacco Screening 07/04/2025 07/04/2024 Diabetes: Hemoglobin A1C 07/21/2025 025, 07/04/2024, 04/03/2020 Colorectal Cancer Screening 05/28/2027 FIT DNA/Cologuard 05/28/2027 05/27/2024 DTaP/Tdap/Td Vaccines (3 - Td or Tdap) 08/04/2032 08/04/2022, 01/01/2010 RSV Patients and Patients Aged 60 years or older (1 - 1-dose 75+ series) 2041 Hepatitis A Vaccines Aged Out 06/04/2010, 04/09/19 11 No longer eligible based on patient's age to complete this topic Hepatitis B Vaccines Completed 06/09/2023, 01/09/2017, 06/04/2010, Additional history exists HIV Screening Completed 07/04/2024, 04/03/2020 Hepatitis C Screening Completed 07/04/2024, 021 HIB Vaccines Aged Out No longer eligi [...] Procedure Name Priority Date/Time Associated Diagnosis Comments HEMOGLOBIN A1C Routine 07/21/2024 1:20 PM EDT URIC ACID Routine 07/21/2024 1:20 PM EDT Right wrist pain CBC WITH AUTO DIFFERENTIAL Routine 07/21/2024 1:20 PM EDT Right wrist pain T-SPOT(R).TB Routine 07/04/2024 2:31 PM EDT HEMOGLOBIN A1C Routine 07/04/2024 2:31 PM EDT Elevated glucose level HEPATITIS B SURFACE ANTIGEN, EIA Routine 07/04/2024 2:31 PM EDT HIV 1/2 ANTIGEN/ANTIBODY, FOURTH GENERATION W/RFL Routine 07/04/2024 2:31 PM EDT HEPATITIS C AB W/REFL TO HCV RNA, QN, PCR Routine 07/04/2024 2:31 PM EDT HEPATITIS B CORE AB TOTAL Routine 07/04/2024 2:31 PM EDT HEPATITIS B SURFACE ANTIBODY, QUALITATIVE Routine 07/04/2024 2:31 PM EDT HEPATITIS A ANTIBODY, TOTAL Routine 07/04/2024 2:31 PM EDT SYPHILIS SCREEN Routine 07/04/2024 2:31 PM EDT HEPATIC FUNCTION PANEL Routine 2:31 PM EDT [...] PANEL, STANDARD Routine 04/03/2020 2:27 PM EST OCCULT BLOOD, FECAL, IMMUNOASSAY Routine 11/08/2019 11:25 AM EDT from Last 3 Months or Most Recently Relevant to Health Maintenance Results * (ABNORMAL) CBC auto differential (07/21/2024 1:20 PM EDT) Only the most recent of2 resultswithin the time period is included. White Blood Count 7.2 4.8 - 10.8 X10*3/uL [facility] Red Blood Count 4.55 4.20 - 5.50 X10*6/uL [facility] Hemoglobin 12.4 12.0 - 16.0 g/dl [facility] Hematocrit 38.6 37.0 - 47.0 % [facility] Mean Corpuscular Volume 84.8 80.0 - 98.0 fL [facility] Mean Corpuscular Hemoglobin 27.3 27.0 - 33.0 pg [facility] Mean Corpuscular HGB Conc 32.1 31.0 - 35.0 g/dl [facility] Red Cell Distribution Width 12.9 11.0 - 16.0 % [facility] Platelet Count 400 160 - 400 X10*3/uL [facility] Mean Platelet Volume 9.3(L) 9.4 - 12.3 fL [facility] Neutrophils Percent Auto 61.2 45 - 73 % [facility] Imm Gran Pct Auto 0.4 0.0 - 0.4 % [facility] Lymphocytes Percent Auto 24.1 20 - 40 % [facility] Monocytes Percent Auto 6.8 2 - 11 % [facility] Eosinophils Percent Auto 6.7(H) 0 - 4 % [facility] Basophils Percent Auto 0.8 0 - 2 % [facility] NRBC Pct Auto 0.0 0.0 - 0.2 /100WBC [facility] Neutrophils Absolute Auto 4.4 2.0 - 8.3 x10*3/uL [facility] Imm Gran Abs Auto 0.03 0.00 - 0.03 X10*3/uL [facility] Lymphocytes Absolute Auto 1.7 1.2 - 4.9 X10*3/uL [facility] Monocytes Absolute Auto 0.5 0.1 - 1.2 X10*3/uL [facility] Eosinophils Absolute Auto 0.5(H) 0.0 - 0.4 X10*3/uL [facility] Basophils Absolute Auto 0.1 0.0 - 0.2 X10*3/uL [facility] NRBC Abs Auto 0.000 0.0 - 0.012 X10*3/uL [facility] Blood Venous blood specimen / Unknown 07/21/2024 1:20 PM EDT 07/21/2024 1:20 PM EDT Maxwell Jones MD LAB BLOOD ORDERABLES Final Result Performing Organization Address City/[facility]/ZIP Co de Phone Number [facility] [address] [place] [phone] * (ABNORMAL) Uric acid (07/21/2024 1:20 PM EDT) Uric Acid 6.1(H) 2.4 - 5.7 mg/dL [facility] Blood Venous blood specimen / Unknown 07/21/2024 1:20 PM EDT 07/21/2024 1:20 PM EDT Maxwell Jones MD LAB BLOOD ORDERABLES Final Result Performing Organization Address City/[facility]/ZIP Co de Phone Number [facility] [address] [place] [phone] * Hemoglobin A1c (07/21/2024 1:20 PM EDT) Only the most recent of2 resultswithin the time period is included. Hemoglobin A1c 5.8 <6.0 % [facility] Comment:Hemoglobin A1C Refer ence Range Adults: 4.8 - 6.0 % Non diabetic: < 6.0 % Goal: < 7.0 %Additional Action Suggested: > 8.0 %Note: Hemoglobin A1c results are invalid for patients with abnormal amounts of HbF. Blood transfusions may impact the HbA1c concentration in the patient sample. Estimated Average Glucose 120 mg/dL [facility] Comment:eAG = Estimated ave rage glucose which is %A1C expressed asaverage glucose, using the formula of the T6Y-UjyklshKxuscjr Glucose study (ADAG), Diabetes Care, Vol.31,#8,Oct. 2007 07/21/2024 1:20 PM EDT 07/21/2024 1:20 PM EDT Alona MOSCOSO LAB BLOOD ORDERABLES Final Resul t Performing Organization Address [facility] Co de Phone Number [facility] [address] [place] [phone] * Syphilis Screen (07/04/2024 2:31 PM EDT) Syphilis Screen Nonreactive Nonreactive [facility] 07/04/2024 2:31 PM EDT 07/04/2024 4:02 PM EDT Jacoby Donald MD LAB BLOOD ORDERABLES Final Resul t Performing Organization Address [facility] de Phone Number [facility] [address] [place] [phone] * T-SPOT??.TB (07/04/2024 2:31 PM EDT) T Spot TB Negative Negative [facility] Comment:A negative test resu lt does not exclude the possibilityof exposure to or infection with Mycobacteriumtuberculosis (M. tuberculosis). Patients with recentexposure to TB infected individuals exhibiting anegative T-SPOT.TB result should be considered forretesting within 6 weeks or if other relevant clinicalsymptoms indicate. Results from T-SPOT.TB testing mustbe used in conjunction with each individual'sepidemiological history, current medical status,and results of other diagnostic evaluations.The T-SPOT.TB test is qualitative and results arereported as positive, borderline, or negative, giventhat the test controls perform as expected. In linewith the Centers for Disease Control and Prevention's2010 recommendation to report quantitative measurementsalongside the qualitative result, the laboratoryprovides spot counts for informational purposes only.The T-SPOT.TB test should not be interpreted as aquantitative test. TS PANEL A 0 [facility] TS PANEL B 0 [facility] Negative Control Passed [facility] Positive Control Passed [facility] Comment:For additional infor abraham, please refer [email or web address]/[email or web address](This link is being provided for informational/educational purposes only.)REPORT COMMENT:REC'D AT [facility] TEST WAS PERFORMED AT:[employer]/[id number] [place] [address]PYAXDUGDANITA MORALES MD,PHD 07/04/2024 2:31 PM EDT 07/04/2024 4:02 PM EDT Jacoby Donald MD LAB BLOOD ORDERABLES Final Resul t Performing Organization Address [facility]/ZIP Co de Phone Number [facility] [address] [place] [phone] * TSH W/Reflex to FT4 (07/04/2024 2:31 PM EDT) TSH reflex Free T4 1.14 0.32 - 4.0 uIU/mL [facility] Blood Venous blood specimen / Unknown 07/04/2024 2:31 PM EDT 07/04/2024 4:02 PM EDT Alona MOSCOSO LAB BLOOD ORDERABLES Final Resul t Performing Organization Address [facility] Co de Phone Number [facility] [address] [place] [address] [phone] * Hepatitis C Antibody with Reflex to HCV, RNA, Quantitative, Real-Time PCR (07/04/2024 2:31 PM EDT) Hepatitis C Antibody Nonreactive Nonreactive [facility] Comment:Antibodies to HCV no t detected; does not exclude early acuteHCV infection. 07/04/2024 2:31 PM EDT 07/04/2024 4:02 PM EDT us Jacoby Donald MD LAB BLOOD ORDERABLES Final Resul t Performing Organization Address [facility] de Phone Number [facility] [address] [place] [phone] * Hepatitis A Antibody, Total (07/04/2024 2:31 PM EDT) Hepatitis A Antibody IgG REACTIVE Nonreactive [facility] Comment:The presence of IgG anti-HAV implies past HAV infection(recent or distant) or vaccination against HAV. 07/04/2024 2:31 PM EDT 07/04/2024 4:02 PM EDT us Jacoby Donald MD LAB BLOOD ORDERABLES Final Resul t Performing Organization Address [facility] de Phone Number [facility] [address] [place] [phone] * Hepatitis B surface antigen, EIA (07/04/2024 2:31 PM EDT) Hepatitis B Surface Ag Negative Negative [facility] 07/04/2024 2:31 PM EDT 07/04/2024 4:02 PM EDT us Jacoby Donald MD LAB BLOOD ORDERABLES Final Resul t Performing Organization Address [facility] Co de Phone Number [facility] [address] [place] [phone] * Hepatitis B Core Antibody, Total (07/04/2024 2:31 PM EDT) Hepatitis B Core Antibody Nonreactive Nonreactive [facility] 07/04/2024 2:31 PM EDT 07/04/2024 4:02 PM EDT us Jacoby Donald MD LAB BLOOD ORDERABLES Final Resul t Performing Organization Address [facility]/ZIP Co de Phone Number [facility] [address] [place] [phone] * HIV-1/2 Antigen and Antibodies, Fourth Generation, with Reflexes (07/04/2024 2:31 PM EDT) HIV AB/AG Nonreactive Nonreactive [facility] Comment:HIV-1 p24 Ag and/or HIV-1/HIV-2 Ab not detected.A test result that is nonreactive does not exclude thepossibility of exposure to or infection with HIV-1 and/orHIV-2. Nonreactive results in this assay for individualswith prior exposure to HIV-1 and/or HIV-2 may be due toantigen and antibody levels that are below the limit ofdetection of this assay.The [employer] HIV Ag/Ab Combo assay result andsupplemental assay results should be interpreted inconjunction with the patient's clinical presentation,history and other laboratory results. If the results areinconsistent with clinical evidence, additional testing issuggested to confirm the result. 07/04/2024 2:31 PM EDT 07/04/2024 4:02 PM EDT us Jacoby Donald MD LAB BLOOD ORDERABLES Final Resul t Performing Organization Address [facility]/ZIP Co de Phone Number [facility] [address] [place] [address] [phone] * Hepatitis B Surface Antibody, Qualitative (07/04/2024 2:31 PM EDT) ~Hepatitis B Surface Antibody REACTIVE Nonreactive [facility] Comment:REACTIVE: > 11.99 mI U/mL 07/04/2024 2:31 PM EDT 07/04/2024 4:02 PM EDT us Jacoby Donald MD LAB BLOOD ORDERABLES Final Resul t Performing Organization Address City/[facility]/ZIP Co de Phone Number [facility] [address] [place] [phone] * B Type Natriuretic Peptide (BNP) (07/04/2024 2:31 PM EDT) Pathologist [facility] B Type Natriuretic Peptide 54 <100 pg/mL [facility] Blood Venous blood specimen / Unknown 07/04/2024 2:31 PM EDT 07/04/2024 3:58 PM EDT Alona MOSCOSO LAB BLOOD ORDERABLES Final Resul t Performing Organization Address City/[facility]/ZIP Co de Phone Number [facility] [address] [place] [address] [phone] * Hepatic Function Panel (07/04/2024 2:31 PM EDT) [facility] Bilirubin, Direct 0.2 0.0 - 0.5 mg/dL [facility] 07/04/2024 2:31 PM EDT 07/04/2024 4:02 PM EDT Jacoby Donald MD LAB BLOOD ORDERABLES Final Resul t Performing Organization Address City/[facility]/ZIP Co de Phone Number [facility] [address] [place] [phone] * (ABNORMAL) Comprehensive Metabolic Panel (07/04/2024 2:31 PM EDT) [facility] Sodium 139 135 - 145 mmol/L [facility] Potassium 3.8 3.3 - 5.1 mmol/L [facility] Chloride 102 96 - 108 mmol/L [facility] Carbon Dioxide 28 22 - 29 mmol/L [facility] Anion Gap 13 12 - 20 [facility] Urea Nitrogen (BUN) 15 9 - 16 mg/dL [facility] Creatinine, Serum 0.77 0.5 - 1.4 mg/dL [facility] Estimated Glomerular Filt Rate >60 [facility] Comment:Chronic Kidney Disea se: Estimated GFR < 60 mL/min/[id number] Kidney Disease: Estimated GFR < 15 mL/min/1.73m2 Glucose 183(H) 60 - 115 mg/dL [facility] Calcium 9.7 8.4 - 10.2 mg/dL [facility] Bilirubin, Total 0.4 0.0 - 1.0 mg/dL [facility] Aspartate Amino Transferase 31 5 - 31 U/L [facility] Alanine Aminotransferase 27 0 - 31 U/L [facility] Total Protein 8.3(H) 6.5 - 8.0 g/dL [facility] Albumin Level 4.2 3.5 - 5.0 g/dL [facility] Alkaline Phosphatase 174(H) 39 - 117 U/L [facility] Blood Venous blood specimen / Unknown 07/04/2024 2:31 PM EDT 07/04/2024 4:02 PM EDT Alona Crane [facility] LAB BLOOD ORDERABLES Final Resul t Performing Organization Address City/State/[facility] Co de Phone Number [facility] [address] [place] [phone] * BI Mammogram Screening Tomosynthesis Bilateral (06/17/2024 2:15 PM EDT) Anatomical Region Laterality Modality Breast Bilateral Mammography 06/17/2024 2:15 PM EDT Narrative 06/25/2024 3:10 PM EDT ? [facility] ? 2 [facility] ?[place] [address] ?[phone] ? Mammography Report ? Signed ? Patient: Arteaag,Gaby ?MR#: [id number] ?? 46 ? : 1965 ?Acct:[id number] ? Age/Sex: 58 / F ?ADM Date: 03/28/25 ? Loc: HO.MAMMO ? Attending Dr: Alona Crane INSIGHT LEADER ? Ordering Physician: ALONA CRANE NP ?Results: 1Negative ? Date of Service: 06/17/24 ?Follow Up: 1 Year From Orig ?? inal Mammogram ? Procedure(s): MM tomosynthesis screening BI ?? Accession Number(s): [id number] ? cc: ALONA CRANE NP ? EXAMINATION: ?? MM SCREENING DIGITAL BREAST [...] DD/ 1415 ? TD/TT: 06/17/24 1440 ? Associate Business Analyst: ? Procedure Note Donotuseinterpreter, Image - 06/25/2024 [facility] [address] [place] [address] Mammography Report Signed Patient: Wyatt Arteaga#: [id number] 46 : 1965Acct:[id number] Age/Sex: 58 / FADM Date: 06/17/24 Loc: HO.MAMMO Attending Dr: Alona Crane INSIGHT LEADER Ordering Physician: ALONA CRANE NPResults: 1Negative Date of Service: 06/17/24Follow Up: 1 Year From Orig inal Mammogram Procedure(s): MM tomosynthesis screening BI Accession Number(s): [id number] cc: ALONA CRANE NP EXAMINATION: MM SCREENING [...] 06/25/24 1506 DD/ 1415 TD/TT: 06/17/24 1440 Associate Business Analyst: us Alona MOSCOSO IMMicheal BI PROCEDURES Edited Result - Final * [...] Positive( A) Negative 06/04/2024 5:36 PM EDT [facility] (CLIA #:[id number]) Comment: POSITIVE TEST RESULT. A positive Cologuard [...] (Roverto Camargo al, N Engl J Med 2014;370(14):3002-8624.) Cologuard may produce a false negative or false positive result (no colorectal cancer or precancerous polyp present at colonoscopy follow up). A negative Cologuard test result does not guarantee the absence of CRC or advanced adenoma (pre-cancer). The current Cologuard screening interval is every 3 years. ([place] [employer] Society and U.S. Multi-Society Task Force). Cologuard performance data in a 10,000 patient pivotal study using colonoscopy as the reference method can be accessed at the following location: www.In[employer]/results. Additional description of the Cologuard test process, warnings and precautions can be found at www.[employer]rd.com. Stool specimen (specimen) 05/27/2024 2:49 PM EST 05/29/2024 11:29 PM EDT [facility] MOLECULAR DIAGNOSTICS ORDERA BLES Final Result [facility] (CLIA #:[id number]) [place] [address], * (ABNORMAL) LIPID PANEL, STANDARD (04/03/2020 2:27 [...] ?? Faustino MCLAIN et al. NICHOLAS. 2013;310(19): 8816-1098 ?? (http://education.[employer]/faq/NCM300) Non-HDL Cholesterol 157(H) <130 mg/dL (calc) [facility] Comment: For patients with diabetes plus 1 major ASCVD risk ?? factor, treating to a non-HDL-C goal of <100 mg/dL ?? (LDL-C of <70 mg/dL) is considered a therapeutic ?? option. Triglycerides 165(H) <150 mg/dL [facility] 04/03/2020 2:27 PM EST Syed Hardy MD LAB BLOOD ORDERABLES Final Resul t Performing Organization Address [facility] Number [facility] [address] * (ABNORMAL) OCCULT BLOOD STOOL (11/08/2019 11:25 AM EDT) OCCULT BLOOD STOOL POS(AA) NEG [facility] 11/08/2019 11:2 5 AM EDT [place] Provider LAB BODY FLUIDS AND STOOL S ORDERABLES Final Result Performing Organization Address [facility] [address] from Last 3 Months or Most Recently Relevant to Health Maintenance Insurance [employer] C3 Care Teams Extractor Filler Relationship Specialty Start Date End Date Alona Crane ANP [address] [place] [address] PCP - General Family Medicine 02/11/22 Lilian Varghese Runstitching Machine OperatorMedical Technician Assistant 07/02/23
--- OUTSIDE RECORDS SUMMARY | 2024-07-21 15:34 | XMS_ITS | Encounter Summary ---
Author Organization [employer] Address [address] [facility] 7t [place] [address] Care Team Providers Care Work From Home Name Role Phone Juani Sosa Primary Care Provider [phone] Encounter Details Date Type Department Care Team (Late st Contact Info) Description 07/21/2024 Orders Only [facility] [address] [place], [place] [phone] Juani Sosa ANP [address] [place], [place] [phone] Social History Tobacco Use Types Packs/Day Years [...] the past 12 months, has t he [employer], gas, oil or water [employer] threatened to shut off services in your [...] Description 07/25/2024 2:15 PM EDT Office Visit [facility] [address] [place] [address] Jacoby Donald MD [address] [place] [address] 08/04/2024 11:00 AM EDT Office Visit [facility] [address] [place] [address] Juani Sosa ANP [address] [place] [address] 09/05/2024 1:00 PM EDT Office Visit [facility] [address] [place] [address] Jacoby Donald MD [address] [place] [address] documented as of this encounter Procedures Procedure Name Priority Date/Time Associated Diagnosis Comments HEMOGLOBIN A1C Routine 07/21/2024 1:20 PM EDT documented in this encounter Results * Hemoglobin A1c (07/21/2024 1:20 PM EDT) Hemoglobin A1c 5.8 <6.0 % [facility] Comment:Hemoglobin A1C Refer ence Range Adults: 4.8 - 6.0 % Non diabetic: < 6.0 % Goal: < 7.0 %Additional Action Suggested: > 8.0 %Note: Hemoglobin A1c results are invalid for patients with abnormal amounts of HbF. Blood transfusions may impact the HbA1c concentration in the patient sample. Estimated Average Glucose 120 mg/dL [facility] Comment:eAG = Estimated ave rage glucose which is %A1C expressed asaverage glucose, using the formula of the T7R-FcqjtdaGnvphrw Glucose study (ADAG), Diabetes Care, Vol.31,#8,Oct. 2007 07/21/2024 1:20 PM EDT 07/21/2024 1:20 PM EDT us Juani MOSCOSO LAB BLOOD ORDERABLES Final Resul t [facility] [address] [place] [phone] documented in this encounter Visit Diagnoses Not on filedocumented in this encounter Additional Health Concerns Assessment Noted Time PHQ-9 Depression Total Score: 16 05/17/ 025 11:09 AM EST documented as of this encounter Care Teams Work From Home Relationship Specialty Start Date End Date Juani Sosa ANP [address] [place] [address] PCP - General Family Medicine 02/11/22 Lilian Varghese Motor Vehicle Licence ExaminerRerecording Mixer 07/02/23 documented as of this encounter
--- OUTSIDE RECORDS SUMMARY | 2024-07-21 15:34 | XMS_ITS | Encounter Summary ---
Author Organization [employer] Address [address] [facility] [address] 7t [place] [address] Care Team Providers Care Prototype Deicer Assembler Name Role Phone Juani Sosa Primary Care Provider [phone] Reason for Visit * Reason Comments Med Change Request Encounter Details Date Type Department Care Team ([facility] Contact Info) Description 08/05/2023 Refill [facility] [address] [place] [address] Leeanne Mandel FNP Moderate persistent asthma with [...] Description 07/25/2024 2:15 PM EDT Office Visit [facility] MEDICINE [address] [place] [address] Jacoby Donald MD [address] [place] [address] 08/04/2024 11:00 AM EDT Office Visit [facility] [address] [place] [address] Juani Sosa ANP [address] [place] [address] 09/05/2024 1:00 PM EDT Office Visit [facility] [address] [place] [address] Jacoby Donald MD [address] [place] [address] documented as of this encounter Visit Diagnoses Diagnosis Moderate persistent asthma with acute exacerbation documented in this encounter Additional Health Concerns Assessment Noted Time PHQ-9 Depression Total Score: 10 024 10:06 AM EST documented as of this encounter Care Teams Prototype Deicer Assembler Relationship Specialty Start Date End Date Juani Sosa ANP [address] [place] [address] PCP - General Family Medicine 02/11/22 Lilian Varghese Car WhackerPower Plant Installer 07/02/23 documented as of this encounter
--- OUTSIDE RECORDS SUMMARY | 2024-07-21 15:34 | XMS_ITS | Encounter Summary ---
Author Organization [employer] Address [address] [facility] [address] 7[address] [place] [address] Care Team Providers Care Assigner Name Role Phone Juani Sosa Primary Care Provider [phone] Encounter Details Date Type Department Care Team (Late st Contact Info) Description 08/07/[address] [facility] [address] [place], [place] [phone] Leeanne Mandel FNP Social History Tobacco Use [...] Description 07/25/2024 2:15 PM EDT Office Visit [address] [address] Jacoby Donald MD [address] [place] [address] 08/04/2024 11:00 AM EDT Office Visit [address] [address] Juani Sosa ANP [address] [place] [address] 09/05/2024 1:00 PM EDT Office Visit [address] [address] Jacoby Donald MD [address] [place] [address] documented as of this encounter Visit Diagnoses Not on filedocumented in this encounter Additional Health Concerns Assessment Noted Time PHQ-9 Depression Total Score: 10 024 10:06 AM EST documented as of this encounter Care Teams Assigner Relationship Specialty Start Date End Date Juani Sosa ANP [address] [place] [address] PCP - General Family Medicine 02/11/22 Lilian Varghese Filter AssemblerAuto Body Builder Apprentice 07/02/23 documented as of this encounter
--- OUTSIDE RECORDS SUMMARY | 2024-07-21 15:34 | XMS_ITS | Encounter Summary ---
Author Organization [employer] Address [address] [facility] 7t [place] [address] Care Team Providers Care Electric Motor Repairing Supervisor Name Role Phone Juani Sosa Primary Care Provider [phone] Reason for Visit * Reason Onset Date Comments ER Follow-up 11/10/2023 Encounter Details Date Type Department Care Team ([facility] Contact Info) Description 11/10/2023 Telephone [facility] [address] [place], [place] [phone] Juani Sosa ANP 230 [place] [address] ER Follow-up Social History Tobacco Use Types [...] ED visit on : Date: 11/09/23 Hospital: [facility] Seen for: Chest Pain, breathing trouble, and Leg swelling. Patient advised will forward to team nurse for follow up documented in this encounter Plan of Treatment Upcoming Encounters Date Type Department Care Team (Late st Contact Info) Description 07/25/2024 2:15 PM EDT Office Visit [facility] [address] [place] [address] Jacoby Donald MD [address] [place] [address] 08/04/2024 11:00 AM EDT Office Visit [facility] [address] [place] [address] Juani Sosa ANP [address] [place] [address] 09/05/2024 1:00 PM EDT Office Visit [address] [address] Jacoby Donald MD [address] [place] [address] documented as of this encounter Visit Diagnoses Not on filedocumented in this encounter Additional Health Concerns Assessment Noted Time PHQ-9 Depression Total Score: 9 10/06/19 24 11:29 AM EDT documented as of this encounter Care Teams Electric Motor Repairing Supervisor Relationship Specialty Start Date End Date Juani Sosa ANP 230 [place] [address] PCP - General Family Medicine 02/11/22 Lilian Varghese Social SecretaryStarchmaker 07/02/23 documented as of this encounter
--- OUTSIDE RECORDS SUMMARY | 2024-07-21 15:34 | XMS_ITS | Encounter Summary ---
Author Organization [employer] Address [address] [facility] 7t [place] [address] Care Team Providers Care Agate Setter Name Role Phone Juani Sosa Primary Care Provider [phone] Reason for Visit * Reason Onset Date Comments Durable Medical Equipment 02/17/2023 Edvin Encounter Details Date Type Department Care Team ([facility] Contact Info) Description 02/17/2023 Telephone [facility] [address] [place], [place] [phone] Juani Sosa ANP [address] [place] [address] Durable Medical Equipment (Walker) Social History Tobacco [...] Walker states requested back in November however jingle writer does not see it on patients chart. documented in this encounter Plan of Treatment Upcoming Encounters Date Type Department Care Team (Late st Contact Info) Description 07/25/2024 2:15 PM EDT Office Visit [facility] [address] [place] [address] Jacoby Donald MD [address] [place] [address] 08/04/2024 11:00 AM EDT Office Visit [facility] [address] [place] [address] Juani Sosa ANP [address] [place] [address] 09/05/2024 1:00 PM EDT Office Visit [facility] [address] [place] [address] Jacoby Donald MD [address] [place] [address] documented as of this encounter Visit Diagnoses Not on filedocumented in this encounter Additional Health Concerns Assessment Noted Time PHQ-9 Depression Total Score: 16 023 9:58 AM EDT documented as of this encounter Care Teams Agate Setter Relationship Specialty Start Date End Date Juani Sosa ANP [address] [place] [address] PCP - General Family Medicine 02/11/22 Lilian Varghese Front Desk RepresentativeWool Sorter 07/02/23 documented as of this encounter
--- OUTSIDE RECORDS SUMMARY | 2024-07-21 15:34 | XMS_ITS | Encounter Summary ---
Author Organization [employer] Address [address] [facility] [address] 7t [place] [address] Care Team Providers Care Senior Trial Attorney Name Role Phone Juani Sosa Primary Care Provider [phone] Reason for Visit * Reason Onset Date Comments Pre op 04/13/2023 Encounter Details Date Type Department Care Team ([facility] st Contact Info) Description 04/13/2023 Telephone [facility] [address] [place], [place] [phone] Juani Sosa ANP 230 [place], [place] [phone] Pre op Social History Tobacco Use Types [...] Surgeon's name: Dr Tim Mcdermott Facility name: [facility] Ortho Surgeon's office number: [phone] Surgeon's office fax number: [phone] Contact name (person you spoke with): Ngoc from [facility] ortho office Last office note from surgeon requested: no documented in this encounter Plan of Treatment Upcoming Encounters Date Type Department Care Team (Late st Contact Info) Description 07/25/2024 2:15 PM EDT Office Visit [facility] [address] [place] [address] Jacoby Donald MD [address] [place] [address] 08/04/2024 11:00 AM EDT Office Visit [facility] [address] [place] [address] Juani Sosa ANP [address] [place] [address] 09/05/2024 1:00 PM EDT Office Visit [facility] [address] [place] [address] Jacoby Donald MD [address] [place] [address] documented as of this encounter Visit Diagnoses Not on filedocumented in this encounter Additional Health Concerns Assessment Noted Time PHQ-9 Depression Total Score: 14 024 10:44 AM EST documented as of this encounter Care Teams Senior Trial Attorney Relationship Specialty Start Date End Date Juani Sosa ANP [address] [place] [address] PCP - General Family Medicine 02/11/22 Lilian Varghese Gmat InstructorTop Stitcher 07/02/23 documented as of this encounter
--- OUTSIDE RECORDS SUMMARY | 2024-07-21 15:34 | XMS_ITS | Encounter Summary ---
Author Organization [employer] Address [address] [facility] [address] 7t [place] [address] Care Team Providers Care Cargo And Container Inspector Name Role Phone Juani Sosa BLANKA Primary Care Provider [phone] Reason for Visit * Reason Comments Med Change Request Encounter Details Date Type Department Care Team ([facility] Contact Info) Description 01/13/2023 Refill [facility] [address] [place], [place] [phone] Jacoby Donald MD [address] [place] [address] Social History Tobacco Use Types Packs/Day Years [...] 2:15 PM EDT Office Visit [facility] [address] [place] [address] Jacoby Donald MD [address] [place] [address] 08/04/2024 11:00 AM EDT Office Visit [facility] [address] [place] [address] Juani Sosa ANP [address] [place] [address] 09/05/2024 1:00 PM EDT Office Visit [address] [address] Jacoby Donald MD [address] [place] [address] documented as of this encounter Visit Diagnoses Not on filedocumented in this encounter Additional Health Concerns Assessment Noted Time PHQ-9 Depression Total Score: 16 023 9:58 AM EDT documented as of this encounter Care Teams Cargo And Container Inspector Relationship Specialty Start Date End Date Juani Sosa ANP [address] [place] [address] PCP - General Family Medicine 02/11/22 Lilian Varghese Household Appliances Service TechnicianClipper Operator 07/02/23 documented as of this encounter
--- OUTSIDE RECORDS SUMMARY | 2024-07-21 15:34 | XMS_ITS | Encounter Summary ---
Author Organization [employer] Address [address] [facility] 7t [place] [address] Care Team Providers Care Drafting Instructor Name Role Phone Juani Sosa Primary Care Provider [phone] Reason for Visit * Reason Onset Date Comments Med Refill 07/18/2024 Encounter Details Date Type Department Care Team ([facility] st Contact Info) Description 07/18/2024 Refill [facility] [address] [place] [address] Nalini Blum RN Opioid use disorder Social [...] with others, in a hotel, in a assisted, living outside on the street, on a [...] Description 07/25/2024 2:15 PM EDT Office Visit [facility] MEDICINE [address] [place] [address] Jaocby Donald MD [address] [place] [address] 08/04/2024 11:00 AM EDT Office Visit [facility] MED[facility] [address] [place] [address] Juani Sosa ANP [address] [place] [address] 09/05/2024 1:00 PM EDT Office Visit [facility] [address] [place] [address] Jacoby Donald MD [address] [place] [address] documented as of this encounter Visit Diagnoses Diagnosis Opioid use disorder documented in this encounter Additional Health Concerns Assessment Noted Time PHQ-9 Depression Total Score: 16 05/17/ 025 11:09 AM EST documented as of this encounter Care Teams Drafting Instructor Relationship Specialty Start Date End Date Juani Sosa ANP [address] [facility] [place] [address] PCP - General Family Medicine 02/11/22 Lilian Varghese Regional Owner Operator Truck DriverPolice Or Patrol Park Officer 07/02/23 documented as of this encounter
--- OUTSIDE RECORDS SUMMARY | 2024-07-21 15:34 | XMS_ITS | Encounter Summary ---
Author Organization [employer] Address [address] [place] [address] 7[address] [place] [address] Care Team Providers Care Cloth Spreader Name Role Phone Juani Sosa Primary Care Provider [phone] Reason for Referral * Neurology (Routine) - Authorized Specialty Diagnoses / Procedures Referred By Contac t Referred To Contact Diagnoses Right wrist pain Procedures Nerve conduction test Maxwell Denson MD [address] [place] [address] Phone: tel: fax: [address] Phone: tel: fax: Referral ID Status Reason Start Date Expiration Date V isits Requested Visits Authorized [id number] Authorized 07/16/2024 07/16/2025 1 1 * Neurology (Routine) - Authorized Specialty Diagnoses / Procedures Referred By Contac t Referred To Contact Diagnoses Right wrist pain Procedures EMG Maxwell Denson MD [address] [place] [address] Phone: tel: fax: [address] Phone: tel: fax: Referral ID Status Reason Start Date Expiration Date V isits Requested Visits Authorized [id number] Authorized 07/16/2024 07/16/2025 1 1 Encounter Details Date Type Department Care Team (Late st Contact Info) Description 07/16/2024 11:00 AM EDT Office Visit [facility] [address] [place] [address] Maxwell Denson MD [address] [place] [address] Right wrist pain (Primary Dx) Social History Tobacco Use Types [...] the past 12 months, has t he [employer], gas, oil or water company threatened to [...] Mass Index 41.15 07/16/2024 10:49 AM EDT documented in this encounter Progress Notes * Maxwell Jones MD - 07/16/2024 11:00 AM EDT MAIRA Arteaga is a 58 y.o. female who presents for No chief complaint on file.. Wrist Pain The pain is present in the right wrist and right hand. This is a new problem. The current episode started 1 to 4 weeks ago. There has been no history of extremity trauma. The problem occurs constantly. The pain is at a severity of 7/10. The pain is moderate. Pertinent negatives include no fever or tingling. She has tried nothing for the symptoms. Review of Systems Constitutional: Negative for fever. HENT: Negative for sore throat. Respiratory: Negative for cough and shortness of breath. Cardiovascular: Negative for chest pain. Gastrointestinal: Negative for abdominal pain. Neurological: Negative for tingling and headaches. Allergies Allergen Reactions Hydroxyzine Other Reaction(s): reports redness and swelling Ibuprofen Swelling Lisinopril Angioedema OBJECTIVE Vitals: 07/16/24 1049 BP: 124/75 BP Location: Left arm Patient Position: Sitting BP Cuff Size: Large adult Pulse: 88 Resp: 16 Temp: 98.9 ??F (37.2 ??C) TempSrc: Oral SpO2: 92% Weight: 225 lb (102 kg) Height: 5' 2 (1.575 m) Physical Exam Vitals reviewed. Constitutional: Appearance: Normal appearance. HENT: Head: Normocephalic and atraumatic. Right Ear: External ear normal. Left Ear: External ear normal. Nose: Nose normal. Mouth/Throat: Mouth: Mucous membranes are moist. Eyes: Conjunctiva/sclera: Conjunctivae normal. Cardiovascular: Rate and Rhythm: Normal rate and regular rhythm. Pulmonary: Effort: Pulmonary effort is normal. Breath sounds: Normal breath sounds. Musculoskeletal: Right wrist: Tenderness present. No swelling, deformity or effusion. Decreased range of motion. Left wrist: Normal. Skin: General: Skin is warm. Neurological: Mental Status: She is alert. Mental status is at baseline. Assessment/Plan Problem List Items Addressed This Visit Right wrist pain - Primary Pt here with c/o new onset of [...] no improvement, pt asked to come back Relevant Medications predniSONE (Deltasone) 20 MG tablet acetaminophen (Tylenol Extra Strength) 500 MG tablet Other Relevant Orders XR Wrist 3+ Views Right XR Hand 3+ Views Right EMG Nerve conduction test CBC auto differential Uric acid documented in this encounter Miscellaneous Notes * Assessment & Plan Note - Maxwell Jones MD - 07/16/2024 11:33 AM EDT Associated Problem(s): Right wrist pain Pt here with c/o new onset of [...] no improvement, pt asked to come back documented in this encounter Plan of Treatment Upcoming Encounters Date Type Department Care Team (Late st Contact Info) Description 07/25/2024 2:15 PM EDT Office Visit [facility] [address] [place] [phone] Jacoby Donald MD [address] [place] [phone] 08/04/2024 11:00 AM EDT Office Visit [facility] [address] [place] [address] Juani Sosa ANP [address] [place] [address] 09/05/2024 1:00 PM EDT Office Visit [address] [address] Jacoby Donald MD [address] [place] [address] Scheduled Orders Name Type Priority Associated Diagnoses Orde r Schedule XR Wrist 3+ Views Right Imaging Routine Right wrist pain Expected: 07/16/2024, Expires: 07/16/2025 XR Hand 3+ Views Right Imaging Routine Right wrist pain Expected: 07/16/2024, Expires: 07/16/2025 EMG Neurology Routine Right wrist pain Expected: 07/16/2024 (Approximate), Expires: 07/16/2025 Nerve conduction test Neurology Routine Right wrist pain Expected: 07/16/2024 (Approximate), Expires: 07/16/2025 documented as of this encounter Procedures Procedure Name Priority Date/Time Associated Diagnosis Comments CBC WITH AUTO DIFFERENTIAL Routine 07/21/2024 1:20 PM EDT Right wrist pain URIC ACID Routine 07/21/2024 1:20 PM EDT Right wrist pain documented in this encounter Results * (ABNORMAL) Uric acid (07/21/2024 1:20 PM EDT) Uric Acid 6.1(H) 2.4 - 5.7 mg/dL [facility] Blood Venous blood specimen / Unknown 07/21/2024 1:20 PM EDT 07/21/2024 1:20 PM EDT Maxwell Jones MD LAB BLOOD ORDERABLES Final Result [facility] [address] [place] [phone] * (ABNORMAL) CBC auto differential (07/21/2024 1:20 PM EDT) White Blood Count 7.2 4.8 - 10.8 X10*3/uL [facility] Red Blood Count 4.55 4.20 - 5.50 X10*6/uL [facility] Hemoglobin 12.4 12.0 - 16.0 g/dl [facility] Hematocrit 38.6 37.0 - 47.0 % [facility] Mean Corpuscular Volume 84.8 80.0 - 98.0 fL [facility] Mean Corpuscular Hemoglobin 27.3 27.0 - 33.0 pg [facility] Mean Corpuscular HGB Conc 32.1 31.0 - 35.0 g/dl [facility] Red Cell Distribution Width 12.9 11.0 - 16.0 % [facility] Platelet Count 400 160 - 400 X10*3/uL [facility] Mean Platelet Volume 9.3(L) 9.4 - 12.3 fL [facility] Neutrophils Percent Auto 61.2 45 - 73 % [facility] Imm Gran Pct Auto 0.4 0.0 - 0.4 % [facility] Lymphocytes Percent Auto 24.1 20 - 40 % [facility] Monocytes Percent Auto 6.8 2 - 11 % [facility] Eosinophils Percent Auto 6.7(H) 0 - 4 % [facility] Basophils Percent Auto 0.8 0 - 2 % [facility] NRBC Pct Auto 0.0 0.0 - 0.2 /100WBC [facility] Neutrophils Absolute Auto 4.4 2.0 - 8.3 x10*3/uL [facility] Imm Gran Abs Auto 0.03 0.00 - 0.03 X10*3/uL [facility] Lymphocytes Absolute Auto 1.7 1.2 - 4.9 X10*3/uL [facility] Monocytes Absolute Auto 0.5 0.1 - 1.2 X10*3/uL [facility] Eosinophils Absolute Auto 0.5(H) 0.0 - 0.4 X10*3/uL [facility] Basophils Absolute Auto 0.1 0.0 - 0.2 X10*3/uL [facility] NRBC Abs Auto 0.000 0.0 - 0.012 X10*3/uL [facility] Blood Venous blood specimen / Unknown 07/21/2024 1:20 PM EDT 07/21/2024 1:20 PM EDT us Maxwell Jones MD LAB BLOOD ORDERABLES Final Result [facility] [address] [place] [phone] documented in this encounter Visit Diagnoses Diagnosis Right wrist pain- Primary Pain in joint, forearm documented in this encounter Additional Health Concerns Assessment Noted Time PHQ-9 Depression Total Score: 16 025 11:09 AM EST documented as of this encounter Care Teams Cloth Spreader Relationship Specialty Start Date End Date Juani Sosa ANP [address] [place] [phone] PCP - General Family Medicine 02/11/[address] Traffic Control TechnicianCashiers Supervisor 07/02/23 documented as of this encounter
--- OUTSIDE RECORDS SUMMARY | 2024-07-21 15:34 | XMS_ITS | Encounter Summary ---
Author Organization [employer] Address [address] [facility] 7t [place] [address] Care Team Providers Care Loss Prevention Manager Name Role Phone Juani Sosa Primary Care Provider [phone] Reason for Visit * Reason Onset Date Comments Med Refill 07/18/2024 Encounter Details Date Type Department Care Team ([facility] Contact Info) Description 07/18/2024 Telephone [facility] [address] [place], [place] [phone] Juani Sosa ANP [address] [place], [place] [phone] Med Refill Social History Tobacco Use Types Packs/Day Years [...] the past 12 months, has t he [employer], gas, oil or water [employer] threatened to shut off services in your [...] encounter Miscellaneous Notes * Telephone Encounter - Selina Scott LPN - 07/18/2024 11:26 AM EDT Medications requested were sent to [facility] on 05/02/24 90 day supply and Aspirin not prescribedby PCP. * Telephone Encounter - Sean Arnold - 07/18/2024 11:11 AM EDT TC from pt requesting medication refill. Medications needing refill: albuterol (ProAir HFA) 108 (90 Base) MCG/ACT inhaler Aspirin Low Dose 81 MG EC tablet hydroCHLOROthiazide (HYDRODiuril) 25 MG tablet omeprazole (PriLOSEC) [address] capsule To be sent to: [facility] [place] - [address] [facility] documented in this encounter Plan of Treatment Upcoming Encounters Date Type Department Care Team (Late st Contact Info) Description 07/25/2024 2:15 PM EDT Office Visit [address] [address] Jacoby Donald MD [address] [place] [phone] 08/04/2024 11:00 AM EDT Office Visit [address] [address] Juani Sosa ANP [address] [place] [address] [phone] 09/05/2024 1:00 PM EDT Office Visit [address] [address] Jacoby Donald MD [address] [place], [place] [phone] documented as of this encounter Visit Diagnoses Not on filedocumented in this encounter Additional Health Concerns Assessment Noted Time PHQ-9 Depression Total Score: 16 025 11:09 AM EST documented as of this encounter Care Teams Loss Prevention Manager Relationship Specialty Start Date End Date Juani Sosa ANP [address] [place] [address] PCP - General Family Medicine 02/11/22 Lilian Varghese Topographic ComputatorRadio Personality 07/02/23 documented as of this encounter
--- OUTSIDE RECORDS SUMMARY | 2024-07-21 15:34 | XMS_ITS | Encounter Summary ---
Author Organization [employer] Address [address] [place] [address] Care Team Providers Care Registered Nurse Cardiac Name Role Phone Juani Sosa Primary Care Provider [phone] Encounter Details Date Type Department Care Team (Late st Contact Info) Description 04/09/2023 Orders Only [facility] [address] [place] [address] Nalini Blum RN Uncomplicated opioid dependence (CMS/HCC) [...] Description 07/25/2024 2:15 PM EDT Office Visit [facility] [address] [place] [address] Jacoby Donald MD [address] [place] [phone] 08/04/2024 11:00 AM EDT Office Visit [facility] [address] [place] [address] Juani Sosa ANP [address] [place] [phone] 09/05/2024 1:00 PM EDT Office Visit [address] [address] Jacoby Donald MD [address] [place] [address] Scheduled Orders Name Type Priority Associated Diagnoses [...] documented as of this encounter Care Teams Registered Nurse Cardiac Relationship Specialty Start Date End Date Juani Sosa ANP [address] [place] [phone] PCP - General Family Medicine 02/11/22 Lilian Varghese Plastic TechnicianHeat Treat Inspector 07/02/23 documented as of this encounter
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
== END 2024-07-21 13:12 | disposition home or self-care (01) ==
LOC: HO.XRAY 13:11
PROVIDERS: PCP Nurse Practitioner Primary Care; Visit Provider Internal Medicine
DX: M25.531 Pain in right wrist (principal); R73.09 Other abnormal glucose
CPT/HCPCS: 36415; 73110; 73130; 83036; 84550; 85025

== ENCOUNTER → 2024-07-21 13:22 | Outpatient (BNV) | payer MEDICAID, SELFPAY | PROVIDERS: PCP Nurse Practitioner Primary Care; Visit Provider Radiology Diagnostic Radiology | DX: M25.541 Pain in joints of right hand (principal); M25.531 Pain in right wrist | CPT/HCPCS: 73110; 73130 ==

== ENCOUNTER 2024-08-16 23:22 | Emergency (ER) | payer MEDICAID, SELFPAY ==
--- NOTE | 2024-08-16 | ECG_ITS ---
Test Reason : ABD PAIN Blood Pressure : */* mmHG Vent. Rate : 75 BPM Atrial Rate : 75 BPM P-R Int : 150 ms QRS Dur : 138 ms QT Int : 438 ms P-R-T Axes : 9 -22 90 degrees QTcB Int : 489 ms Normal sinus rhythm Left bundle branch block Abnormal ECG When compared with ECG of 11-May-2024 01:17, No significant change was found Referred By: Generic ED Physician Electronically Signed By: KELLY VIGIL MD
--- NOTE | ~2024-08-16 | CT_ITS ---
CLINICAL HISTORY: Epigastric pain, distended, N V R O perf SBO, Exam: CT abdomen and pelvis with intravenous contrast. Comparison: None. Findings: CT abdomen: Minor areas of atelectasis within the lung bases. No focal infiltrate or pleural effusion. No acute bony lesions. Multilevel degenerative disc disease and degenerative facet disease throughout the thoracolumbar spine, especially at the lumbosacral junction. Small hiatal hernia. Prominent herniated fat through the esophageal hiatus. No dilated small bowel. Many of the small bowel loops are fluid-filled with scattered small bowel air-fluid levels. No free fluid or free air. Minor nonspecific induration within the central mesenteric fat. Low-attenuation throughout the liver is indicative of fatty infiltration. There are areas of peripheral nodularity on the long the inferior right lobe of the liver. No discrete hepatic mass lesion. Main portal vein is patent. Spleen is unremarkable. Diffuse fatty replacement of the pancreas without mass or peripancreatic inflammatory stranding. Moderate distention of the gallbladder without calcified gallstone. Adrenal glands and kidneys are unremarkable. CT pelvis: Liquid stool seen throughout the majority of the colon. More desiccated stool seen within the distal sigmoid colon and rectum. Colonic air-fluid levels are seen throughout. There is borderline fluid distention of the appendix measuring up to 7-8 mm. However, there is no focal appendiceal wall thickening or periappendiceal inflammatory stranding. No free fluid or free air. No pathologically enlarged lymph nodes. Impression: Fluid-filled small and large bowel is most characteristic of an infectious or inflammatory enterocolitis. Although there is borderline fluid distention of the appendix, I suspect that this is simply related to the diffuse process throughout the gastrointestinal tract given the lack of appendiceal wall thickening or focal periappendiceal inflammatory stranding. Please see above for full details. This document has been electronically signed by: Damien Madrigal MD on 08/17/2024 06:06:37
[2024-08-16 23:37] VITALS: BP 126/63; PULSE 80; RESP 20; O2SAT 98
[2024-08-16 23:42] VITALS: TEMP 36.5
[2024-08-16 23:48] VITALS: BP 126/63; BP 142/90; PULSE 80; PULSE 82; RESP 20; TEMP 36.5; O2SAT 98; BMI 36.6
[2024-08-16 23:49] LABS: MANUAL DIFF FLAG NO
[2024-08-16 23:54] LABS: Basophils Percent Auto 0.2 % (0-2); Eosinophils Absolute Auto 0.6 X10*3/uL (0.0-0.4); Eosinophils Percent Auto 5.3 % (0-4); Hematocrit 37.8 % (37.0-47.0); Hemoglobin 12.3 g/dl (12.0-16.0); Imm Gran Abs Auto 0.03 X10*3/uL (0.00-0.03); Imm Gran Pct Auto 0.3 % (0.0-0.4); Lymphocytes Absolute Auto 1.6 X10*3/uL (1.2-4.9); Lymphocytes Percent Auto 15.7 % (20-40); Mean Corpuscular HGB Conc 32.5 g/dl (31.0-35.0); Mean Corpuscular Volume 83.1 fL (80.0-98.0); Mean Platelet Volume 8.9 fL (9.4-12.3); Monocytes Absolute Auto 0.8 X10*3/uL (0.1-1.2); Monocytes Percent Auto 7.8 % (2-11); Neutrophils Absolute Auto 7.3 x10*3/uL (2.0-8.3); Neutrophils Percent Auto 70.7 % (45-73); Platelet Count 332 X10*3/uL (160-400); Red Blood Count 4.55 X10*6/uL (4.20-5.50); Red Cell Distribution Width 13.3 % (11.0-16.0); White Blood Count 10.4 X10*3/uL (4.8-10.8)
[2024-08-17 00:03] LABS: Alanine Aminotransferase 17 U/L (0-31); Albumin Level 4.1 g/dL (3.5-5.0); Alkaline Phosphatase 151 U/L (39-117); Anion Gap 12 (12-20); Aspartate Amino Transferase 25 U/L (5-31); Bilirubin Total 0.6 mg/dL (0.0-1.0); Blood Urea Nitrogen 16 mg/dL (9-16); Calcium 9.3 mg/dL (8.4-10.2); Carbon Dioxide 27 mmol/L (22-29); Chloride 104 mmol/L (96-108); Creatinine Clr Calc Pharmacy 94.4; Estimated Glomerular Filt Rate > 60; Glucose Fasting 101 mg/dL (60-99); Lipase 9 U/L (8-78); Potassium 3.6 mmol/L (3.3-5.1); Sodium 139 mmol/L (135-145); Total Protein 7.7 g/dL (6.5-8.0)
[2024-08-17 00:15] LABS: Troponin-I High Sensitivity < 2.7 ng/L (<3.5-17.0)
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
[2024-08-17] MEDS: 0.9 % Sodium Chloride 1,000 ML 999 ML IV (01:45)
[2024-08-17] MEDS: Ketorolac Tromethamine 15 MG/ML VIAL IVPUSH (01:46)
[2024-08-17] MEDS: ondansetron HCL 4 MG/2 ML VIAL IVPUSH (01:47)
[2024-08-17] MEDS: Morphine Sulfate 4 MG/ML CARTRIDGE IVPUSH (01:47)
--- NOTE | 2024-08-17 01:53 | PC.NURSE ---
provider into to assess pt, medicated per mar, pt awaiting CT Scan
[2024-08-17] MEDS: iohexoL 350 MG/ML 100 ML INFUS..BTL 85 ML IV (02:14)
[2024-08-17 02:47] VITALS: BP 112/60; PULSE 77; RESP 18; TEMP 36.7; O2SAT 95
--- NOTE | 2024-08-17 05:19 | PC.NURSE ---
pt awaiting Ct-Scan result, pt sleeping no sign of distress.
[2024-08-17 05:55] VITALS: BP 110/61; PULSE 66; RESP 18; TEMP 36.7; O2SAT 95
[2024-08-17] MEDS: metroNIDAZOLE 500 MG TABLET PO (06:41)
[2024-08-17] MEDS: levoFLOXacin 500 MG TABLET PO (06:41)
--- NOTE | 2024-08-17 06:46 | PC.NURSE ---
Iv removed, medicated per may, reviewed discharge instructions with pt. pt verbalized understanding, no sign of distress upon discharge.
[2024-08-17 06:47] VITALS: BP 110/61; PULSE 66; RESP 18; TEMP 36.7; O2SAT 95
== END 2024-08-17 06:48 | disposition home or self-care (01) ==
PROVIDERS: Emergency Provider Emergency Medicine Emergency Medical Services
DX: A42.1 Abdominal actinomycosis (principal); K52.9 Noninfective gastroenteritis and colitis, unspecified; R10.13 Epigastric pain; R11.10 Vomiting, unspecified; R10.2 Pelvic and perineal pain; I44.7 Left bundle-branch block, unspecified; R94.31 Abnormal electrocardiogram [ECG] [EKG]; Z79.899 Other long term (current) drug therapy
CPT/HCPCS: 36415; 74177; 80053; 83690; 84484; 85025; 93005; 96361; 96374; 96375; 99285; J1885; J2270; J2405; Q9967

== ENCOUNTER → 2024-08-16 23:31 | Outpatient (BNV) | payer MEDICAID, SELFPAY | PROVIDERS: Emergency Provider Emergency Medicine Emergency Medical Services; Visit Provider Internal Medicine Cardiovascular Disease | DX: I44.7 Left bundle-branch block, unspecified (principal) | CPT/HCPCS: 93010 ==

== ENCOUNTER → 2024-08-17 01:33 | Outpatient (BNV) | payer MEDICAID, SELFPAY | PROVIDERS: Emergency Provider Emergency Medicine Emergency Medical Services; Visit Provider Radiology Diagnostic Radiology | DX: A09 Infectious gastroenteritis and colitis, unspecified (principal) | CPT/HCPCS: 74177 ==

== ENCOUNTER 2024-08-22 14:37 | Outpatient (AMB) | payer MEDICAID, SELFPAY ==
--- NOTE | 2024-08-22 14:44 | A.OFFVIS_ITS ---
Vital Signs 08/22/24 14:48 Height 5 ft 2 in Weight 227 lb 8.273 oz BMI 41.6 BP 110/69 Blood Pressure Location Lt brachial Position Sitting Pulse 76 Pulse Source Monitor Pulse Oximetry (%) 93 Oxygen Delivery Method Room Air Intake Visit Reasons: r/s 07/26/24 htn Intake Note: follow up for HTN. Pt states does not monitor at home Manager Library Required: No Accompanied by: Self / Same As Patient Allergies lisinopril Allergy (Severe, Verified 08/22/24 14:50) Angioedema hydroxyzine [HYDROXYZINE] Adverse Reaction (Intermediate, Verified 08/22/24 14:50) reports redness and swelling Medication List - Last Reconciled 08/22/24 by Yelena López, MEDICAL INSURANCE CLAIMS SPECIALIST-C albuterol sulfate 90 mcg/actuation (ProAir HFA) 2 puffs inhalation Q4-6H PRN aspirin 81 mg PO DAILY buprenorphine-naloxone 8-2 mg (Suboxone) 10 mg sublingual BID cetirizine 10 mg PO DAILY clonidine HCl 0.1 mg PO BID hydrochlorothiazide 12.5 mg PO DAILY levofloxacin 500 mg PO DAILY 5 days metoprolol succinate ER (Toprol XL) 25 mg PO DAILY metronidazole 500 mg PO TID 5 days morphine 15 mg PO Q8H PRN naloxone 4 mg/actuation (Narcan) 0 sprays intranasal prednisone 40 mg (2 x 20 mg) PO DAILY 5 days HPI HPI r/s 07/26/24 htn: Details: Gaby is a 59-year-old female with past medical history of hypertension, prior smoking, prior heroin use, now on Suboxone, left bundle branch block, prior reports of chest discomfort with normal cardiac catheterization who presents for follow-up. Today she reports that she has been doing well since her last visit 07/09/2023. She has not been getting chest discomfort like she had in the past. She does get shortness of breath with exertion which is not new. She does not feel this is changing. No concerning heart palpitations, no lightheadedness, presyncope, syncope, falls. She reports being sedentary due to bilateral knee discomfort. She is hoping to have knee replacement surgery but is still waiting for a phone call regarding this. She reports compliance with her medications. [facility] Medical History Left against medical advice Angioedema History of fatty infiltration of liver History of alcohol dependence History of heroin use Chronic knee pain Chronic back pain History of seizure History of panic disorder History of opioid abuse Depression HTN (hypertension) History of left bundle branch block (LBBB) Migraine Anxiety Asthma Surgical History Hx of exploratory laparotomy Hx of colonoscopy Family History Mother Heart disease Arthritis HTN (hypertension) Social History Household Members: None Housing: House Do you presently have visiting nurse or other home services: No Alcohol intake: current Alcohol intake frequency: does not drink Patient Tobacco Use Status: Former Tobacco user Years Smoked: 10 +/- Substance Use Type: Inhalants service: No Current occupational status: unemployed Review of Systems Const All systems reviewed & are unremarkable except as noted in HPI and below Denies fever(s) and Denies weight gain Card Denies chest pain, Denies chest pain at rest, Denies chest pain with activity, Denies rapid heart rate, Denies lightheadedness, Denies dyspnea, Denies dyspnea on exertion, Denies orthopnea and Denies other (loss of consciousness) Resp Denies dyspnea and Denies dyspnea on exertion GI Denies hematochezia and Denies change in stool character Musc Details: bilateral knee pain Reports abnormal gait and Denies radiating pain into limb Neuro Reports abnormal gait Physical Exam Vital Signs: Last Vital Signs Pulse 76 08/22/24 14:48 BP 110/69 08/22/24 14:48 Pulse Ox 93 08/22/24 14:48 Oxygen Delivery Method Room Air 08/22/24 14:48 BMI result Body Mass Index 41.6 Const General: cooperative, healthy appearing, comfortable and no acute distress Orientation/consciousness: patient oriented x3 Neck Neck: Yes normal visual inspection Resp Effort & Inspection: normal respiratory effort Auscultation: clear to auscultation bilaterally, no crackles, no rales, no rhonchi and no wheezes Cardio Rate: regular rate Rhythm: regular rhythm Heart sounds: S1 normal heart sound present, S2 normal heart sound present, no gallops, no murmurs and no rubs Neuro General: patient oriented x3 Extrem General: Yes normal to inspection and No no pedal edema Psych Appearance: grossly normal Mental Status: mental status grossly normal Speech and movement: Normal speech and movement present Office Procedures EKG Details: Today, read by me normal sinus rhythm, LBBB, rate 70, Qtc 455ms [id number], Complete Results Reviewed Results Reviewed: NM cardiolite stress test Impression: 1. Myocardial perfusion imaging study shows reversible anteroapical perfusion defect. Could indicate mild ischemia. Artifact not excluded. 2. Gated LVEF is 60% during stress and visually normal during rest. 3. Transient ischemic dilatation not present. EKG component of the test reported separately. Assessment & Plan Assessment & Plan (1) Chest pain: Code(s): R07.9 - Chest pain, unspecified Category: Medical Qualifiers: Chest pain type: other chest pain Qualified Code(s): R07.89 - Other chest pain Plan: Prior Reports of chest discomfort with exertion requiring ER evaluations and ruled out for ACS. Her EKGs show left bundle branch block, which makes them nondiagnostic for ischemia. An echocardiogram was done on 04/29/2023 showing EF 64%, no valve abnormalities, no regional wall motion abnormalities. A pharmacological nuclear stress test done 05/14/2023 showed reversible anterior apical perfusion defect which could indicate mild ischemia however artifact not excluded. She then underwent cardiac catheterization on 08/20/2023 showing normal coronary arteries. She is now doing well with no recurrent chest discomfort. Continue with risk factor modification. (2) LBBB (left bundle branch block): Code(s): I44.7 - Left bundle-branch block, unspecified Category: Medical Plan: Left bundle branch block noted on prior EKGs. EKG done today shows normal sinus rhythm with left bundle branch block, rate 70. In some cases left bundle branch block can lead to cardiomyopathy. Will check echo prior to next visit. Cardiology follow-up 1 year, sooner if needed. (3) HTN (hypertension): Code(s): I10 - Essential (primary) hypertension Category: Medical Plan: Blood pressure goal less than 130/80. Well controlled at present. No med changes made. Continue hydrochlorothiazide and metoprolol. Plan During today's review, we discussed the stable condition of the patient's heart, along with reassurance provided about her cardiac catheterization results from a year ago, indicating normal coronary arteries. The patient was advised to continue hydrochlorothiazide and metoprolol as her blood pressure and heart rate remain stable. Emphasis was also placed on patient advocacy concerning the delay in her knee surgery for arthritis. A one-year cardiac follow-up was determined appropriate due to stability, with directives given on vigilance for new cardiovascular symptoms. No changes in cardiac care were deemed necessary at this time. Orders: Orders CA echo transthoracic complete 08/10/25 I44.7 - Left bundle-branch block, unspecified Patient Instructions: - Continue taking prescribed hydrochlorothiazide, metoprolol, and aspirin. - Follow up with orthopedic surgeon regarding knee surgery. - Attend the cardiology follow-up appointment in one year. - Report any new symptoms like chest pain, palpitations, or breathlessness promptly. Patient was informed and verbally consented to the use of an ambient scribe for clinic note documentation during this visit. Visit time spent on chart review, interview, assessment, orders, documentation. Coding Level of Care Code Est Pt Level 4 (85263) Complex EM visit Add On G2211 Diagnoses Chest pain R07.89 Chest pain type: other chest pain LBBB (left bundle branch block) I44.7 HTN (hypertension) I10 CPT Codes EKG - CPT: 16601-[id number], Complete ([id number]) Time Spent (min) 28
[2024-08-22 14:48] VITALS: BP 110/69; PULSE 76; O2SAT 93; BMI 41.6
--- OUTSIDE RECORDS SUMMARY | 2024-08-22 15:53 | XMS_ITS | Encounter Summary ---
Author Organization [facility] Address [address] [place] [address] 7[address] [place] [address] Care Team Providers Care Calculating Machine Mechanic Name Role Phone Juani Sosa Primary Care Provider [phone] Reason for Visit * Reason Onset Date Comments Med Refill 07/18/2024 Encounter Details Date Type Department Care Team ([facility] Contact Info) Description 07/18/2024 Telephone [facility] 230 [place], [place] [phone] Junai Sosa ANP 230 [place], [place] [phone] Med Refill Social History Tobacco Use Types [...] the past 12 months, has t he [employer], gas, oil or water [employer] threatened to shut off services in your [...] AM EDT Medications requested were sent to [facility] on 05/02/24 90 day supply and Aspirin not prescribedby PCP. * Telephone Encounter - Sean Arnold - 07/18/2024 11:11 AM EDT TC from pt requesting medication refill. Medications needing refill: albuterol (ProAir HFA) 108 (90 Base) MCG/ACT inhaler Aspirin Low Dose 81 MG EC tablet hydroCHLOROthiazide (HYDRODiuril) 25 MG tablet omeprazole (PriLOSEC) [address] capsule To be sent to: [facility] - [place] - 230 [facility] documented in this encounter Plan of Treatment Upcoming Encounters Date Type Department Care Team (Late st Contact Info) Description 09/05/2024 1:00 PM EDT Office Visit [facility] [address] [place] [address] Jacoby Donald MD 230 [place] [address] 10/31/2024 3:15 PM EDT Office Visit [facility] [address] [place] [address] Juani Sosa ANP [address] [place] [phone] documented as of this encounter Visit Diagnoses Not on filedocumented in this encounter Additional Health Concerns Assessment Noted Time PHQ-9 Depression Total Score: 16 05/17/ 025 11:09 AM EST documented as of this encounter Care Teams Calculating Machine Mechanic Relationship Specialty Start Date End Date Juani Sosa ANP [address] [place] [phone] PCP - General Family Medicine 02/11/22 Lilian Varghese Agency ManagerExtractions Technician 07/02/23 documented as of this encounter
== END 2024-08-22 15:32 | disposition home or self-care (01) ==
LOC: HO.HCS 14:38
PROVIDERS: PCP Nurse Practitioner Primary Care; Visit Provider Nurse Practitioner Family
DX: R07.89 Other chest pain (principal); I44.7 Left bundle-branch block, unspecified; I10 Essential (primary) hypertension
CPT/HCPCS: 93010; 99214

== ENCOUNTER → 2024-08-22 14:37 | Outpatient (BNVA) | payer MEDICAID, SELFPAY | PROVIDERS: PCP Nurse Practitioner Primary Care; Visit Provider Nurse Practitioner Family | DX: R07.89 Other chest pain (principal); I44.7 Left bundle-branch block, unspecified; I10 Essential (primary) hypertension; R94.31 Abnormal electrocardiogram [ECG] [EKG] | CPT/HCPCS: 93005; 99212 ==

== ENCOUNTER 2024-09-01 10:18 | Outpatient (REF) | payer MEDICAID, SELFPAY ==
--- NOTE | ~2024-09-01 | US_ITS ---
EXAMINATION: US LOWER EXTREMITY VENOUS (REFLUX EXAM), BILATERAL CLINICAL INFORMATION: Varices. COMPARISON: DVT ultrasound left lower extremity dated October 16, 2023. DVT ultrasound right lower extremity dated August 17, 2019. TECHNIQUE: Color flow triplex imaging and compression Doppler was performed to evaluate both the deep and the superficial systems bilaterally. To evaluate the superficial system, the examination was performed in the upright position. Color-flow Doppler ultrasound and compression ultrasound were utilized. In addition, maneuvers were utilized to demonstrate reflux. FINDINGS: 1. DEEP VENOUS ULTRASOUND OF THE RIGHT LOWER EXTREMITY: Common Femoral Vein: Compressible, normal respiratory variation and augmented flow. Femoral Vein: Compressible, normal color flow and augmentation. Popliteal Vein: Compressible, normal augmentation. Deep Reflux: There is no evidence of reflux in the deep system in either the common femoral vein, superficial femoral or the popliteal vein. There is no evidence of a Park's cyst. 2. SUPERFICIAL ULTRASOUND WITH DOPPLER OF RIGHT LOWER EXTREMITY: GREAT SAPHENOUS VEIN: Saphenofemoral Junction: 0.9 cm; Reflux: 0 ms Proximal Thigh: 0.6 cm; Reflux: 0 ms Mid Thigh: 0.5 cm; Reflux: 0 ms Distal Thigh: 0.5 cm; Reflux: 0 ms At Knee: 0.4 cm; Reflux: 0 ms Proximal Calf: 0.3 cm; Reflux: 0 ms Mid Calf: 0.3 cm; Reflux: 0 ms Distal Calf: 0.4 cm; Reflux: 0 ms DUPLICATED MEDIAL GREAT SAPHENOUS VEIN: Diameter: None imaged Reflux: NA DUPLICATED LATERAL GREAT SAPHENOUS VEIN: Diameter: 0.4 cm. Reflux: NA SMALL SAPHENOUS VEIN: Saphenopopliteal Junction: 0.5 cm; Reflux: 0 ms Proximal: 0.3 cm; Reflux: 0 ms Distal: 0.3 cm; Reflux: 0 ms VEIN OF GIACOMINI: Size: NA Reflux: NA PERFORATORS: Location: Small saphenous vein, mid segment. Proximal calf. Size: 0.2-0.3 cm. Reflux: NA VARICOSITIES: Location: None imaged. Size: NA Reflux: NA 3. DEEP VENOUS ULTRASOUND OF THE LEFT LOWER EXTREMITY: Common Femoral Vein: Compressible, normal respiratory variation and augmented flow. Femoral Vein: Compressible, normal color flow and augmentation. Popliteal Vein: Compressible, normal augmentation. Deep Reflux: There is no evidence of reflux in the deep system in either the common femoral vein, superficial femoral or the popliteal vein. There is no evidence of a Park's cyst. 4. SUPERFICIAL ULTRASOUND WITH DOPPLER OF LEFT LOWER EXTREMITY: GREAT SAPHENOUS VEIN: Saphenofemoral Junction: 0.9 cm; Reflux: 0 ms Proximal Thigh: 0.4 cm; Reflux: 0 ms Mid Thigh: 0.4 cm; Reflux: 0 ms Distal Thigh: 0.4 cm; Reflux: 0 ms At Knee: 0.4 cm; Reflux: 0 ms Proximal Calf: 0.3 cm; Reflux: 0 ms Mid Calf: 0.3 cm; Reflux: 0 ms Distal Calf: 0.3 cm; Reflux: 0 ms DUPLICATED MEDIAL GREAT SAPHENOUS VEIN: Diameter: None imaged Reflux: NA DUPLICATED LATERAL GREAT SAPHENOUS VEIN: Diameter: 0.5 cm. Reflux: NA SMALL SAPHENOUS VEIN: Saphenopopliteal Junction: 0.4 cm; Reflux: 0 ms Proximal: 0.3 cm; Reflux: 0 ms Distal: 0.3 cm; Reflux: 0 ms VEIN OF GIACOMINI: Size: NA Reflux: NA PERFORATORS: Location: Distal thigh and distal calf. Size: 0.1-0.2 cm. Reflux: NA VARICOSITIES: Location: None Imaged Size: NA Reflux: NA US/US venous duplex LE BI IMPRESSION: Right: No venous insufficiency. No gross varices. Perforators without reflux. Left: No venous insufficiency. No gross varices. Perforators without reflux. Electronically signed by: Tommy Monet MD 09/01/2024 11:30 AM EDT
--- OUTSIDE RECORDS SUMMARY | 2024-09-01 11:54 | XMS_ITS | Encounter Summary ---
Author Organization [facility] Address [address] [place] [address] 7t [place] [address] Care Team Providers Care Adobe Maker Name Role Phone Juani Sosa Primary Care Provider [phone] Reason for Visit * Reason Onset Date Comments Med Refill 07/18/2024 Encounter Details Date Type Department Care Team ([facility] Contact Info) Description 07/18/2024 Telephone [facility] 230 [place], [place] [phone] Juani Sosa ANP 230 [place], [place] [phone] Med Refill Social History Tobacco Use Types [...] the past 12 months, has t he [employer], gas, oil or water [employer] threatened to shut off services in your [...] Miscellaneous Notes * Telephone Encounter - Selina cSott LPN - 07/18/2024 11:26 AM EDT Medications requested were sent to [facility] on 05/02/24 90 day supply and Aspirin not prescribedby PCP. * Telephone Encounter - Sean Arnold - 07/18/2024 11:11 AM EDT TC from pt requesting medication refill. Medications needing refill: albuterol (ProAir HFA) 108 (90 Base) MCG/ACT inhaler Aspirin Low Dose 81 MG EC tablet hydroCHLOROthiazide (HYDRODiuril) 25 MG tablet omeprazole (PriLOSEC) [address] capsule To be sent to: [facility] - [place] - 230 [facility] documented in this encounter Plan of Treatment Upcoming Encounters Date Type Department Care Team (Late st Contact Info) Description 09/05/2024 1:00 PM EDT Office Visit [address] [address] Jacoby Donald MD 230 [place] [address] 09/26/2024 2:15 PM EDT Clinical Support [address] [address] Nalini Blum RN 10/31/2024 3:15 PM EDT Office Visit [address] [address] Juani Sosa ANP [address] [place] [phone] documented as of this encounter Visit Diagnoses Not on filedocumented in this encounter Additional Health Concerns Assessment Noted Time PHQ-9 Depression Total Score: 16 025 11:09 AM EST documented as of this encounter Care Teams Adobe Maker Relationship Specialty Start Date End Date Juani Sosa ANP [address] [place] [address] PCP - General Family Medicine 02/11/22 Lilian Varghese Coach MechanicJukebox Coin Collector 07/02/23 documented as of this encounter
== END 2024-09-01 10:19 | disposition home or self-care (01) ==
LOC: HO.US 10:18
PROVIDERS: Visit Provider Physician Assistant Surgical
DX: I83.11 Varicose veins of right lower extremity with inflammation (principal); I83.12 Varicose veins of left lower extremity with inflammation
CPT/HCPCS: 93970

== ENCOUNTER → 2024-09-01 10:21 | Outpatient (BNV) | payer MEDICAID, SELFPAY | PROVIDERS: Visit Provider Radiology Diagnostic Radiology | DX: I83.813 Varicose veins of bilateral lower extremities with pain (principal) | CPT/HCPCS: 93970 ==

== ENCOUNTER 2024-09-15 13:54 | Outpatient (AMB) | payer MEDICAID, SELFPAY ==
--- NOTE | 2024-09-15 14:07 | A.OFFVIS_ITS ---
Intake Visit Reasons: follow up s/p US 09/01/24 Intake Note: Patient presents for follow up US. States both legs are painful. Accompanied by: Self / Same As Patient Allergies lisinopril Allergy (Severe, Verified 09/15/24 14:08) Angioedema hydroxyzine (HYDROXYZINE) Adverse Reaction (Intermediate, Verified 09/15/24 14:08) reports redness and swelling HPI HPI follow up s/p US 09/01/24: Details: Gaby is presenting today for a follow up to US, performed on 09/01. She continues to endorse bilateral lower extremity swelling and pain; she states the pain is mostly around her knees. She is followed by Ortho and has received Cortisone injections in her knees with little relief and will need bilateral knee replacements. She has no new concerns today. [facility] Medical History Left against medical advice Angioedema History of fatty infiltration of liver History of alcohol dependence History of heroin use Chronic knee pain Chronic back pain History of seizure History of panic disorder History of opioid abuse Depression HTN (hypertension) History of left bundle branch block (LBBB) Migraine Anxiety Asthma Surgical History Hx of exploratory laparotomy Hx of colonoscopy Family History Mother Heart disease Arthritis HTN (hypertension) Social History Household Members: None Housing: House Do you presently have visiting nurse or other home services: No Alcohol intake: current Alcohol intake frequency: does not drink Patient Tobacco Use Status: Former Tobacco user Years Smoked: 10 +/- Substance Use Type: Inhalants service: No Current occupational status: unemployed Review of Systems Const Reports as per HPI and Denies weakness ENT Reports Normal hearing present and Denies dizziness Card Reports as per HPI, Denies chest pain, Denies chest pain at rest, Denies chest pain with activity, Denies dyspnea and Denies dyspnea on exertion Resp Reports as per HPI, Denies cough, Denies dyspnea and Denies dyspnea on exertion GI Reports as per HPI, Denies abdominal pain, Denies nausea and Denies vomiting Musc Denies numbness Skin/Breast Reports as per HPI, Denies erythema and Denies wounds Neuro Reports Normal hearing present, Denies dizziness, Denies numbness, Denies Sensory deficit (Neuro) and Denies weakness Psych Reports no additional complaints Endo Reports no additional complaints Physical Exam Const General: healthy appearing and no acute distress Orientation/consciousness: patient oriented x3 HEENT Head: Yes normal to inspection Ears: hearing grossly normal bilaterally Mouth: Normal oral and palatal mucosa present Resp Effort & Inspection: normal respiratory effort and able to speak in complete sentences Auscultation: clear to auscultation bilaterally Cardio Jugular venous distension: no JVD Rate: regular rate Rhythm: regular rhythm Heart sounds: S1 normal heart sound present and S2 normal heart sound present Bruits: no abdominal aortic bruits, no carotid bruits, no femoral bruits and no renal bruits Peripheral pulses: Peripheral pulses 2+ throughout GI Inspection: Yes normal to inspection Palpation (GI): No Abdominal aortic bruit present Skin General skin exam: no rashes or lesions noted Wounds: no wounds Hair: normal Neuro General: patient oriented x3 Cranial nerves: Yes Normal hearing present Cognition (Neuro): normal cognition Gait exam (Neuro): Normal gait present Motor exam (neuro): 5/5 motor strength present throughout Sensory Exam: No Sensory deficit (Neuro) Extrem Other: Bilateral lower extremities: +2 pitting edema. Slight discoloration noted around the ankles and into her feet. Palpable DP pulses. General: Yes normal to inspection, Yes full ROM, Yes capillary refill normal and Yes normal gait Results Reviewed Results Reviewed: Brief summary of venous insufficiency testing is as follows: right great saphenous vein: negative right small saphenous vein: negative right accessory vein: none present left great saphenous vein: negative left small saphenous vein: negative left accessory vein: none present Please note there is no evidence of any venous aneurysms or significant tortuosity Assessment & Plan Assessment & Plan (1) Varicose veins of both lower extremities with inflammation: Code(s): I83.11 - Varicose veins of right lower extremity with inflammation; I83.12 - Varicose veins of left lower extremity with inflammation Category: Medical Plan: Gaby is presenting today on a follow up to US, performed on 09/01/24. The US was negative for venous insufficiency. We discussed with her that her pain and swelling does not appear to be due to a vascular issue. We discussed the importance of following up with her PCP for further evaluation as well as with Ortho. We discussed the importance of continuing with conservative measures. We discussed the importance of a healthy, well balanced diet and the importance of physical activity. We discussed that if any vascular concerns occurred in the future, to reach out to us. Thank you for allowing us to participate in the patient's care. If there are any questions or concerns, please do not hesitate to reach out to us. Coding Level of Care Code Est Pt Level 4 (69376) Diagnoses Varicose veins of both lower extremities with inflammation I83.11; I83.12 Comment review of US
--- OUTSIDE RECORDS SUMMARY | 2024-09-15 16:46 | XMS_ITS | Encounter Summary ---
Author Organization [facility] Address [address] [place] [address] 7t [place] [address] Care Team Providers Care Flight Crew Scheduler Name Role Phone Juani Sosa Primary Care Provider Reason for Visit * Reason Onset Date Comments Med Refill 07/18/2024 Encounter Details Date Type Department Care Team ([facility] Contact Info) Description 07/18/2024 Telephone [facility] 230 [place], [place] [phone] Juani Sosa ANP 230 [place], [place] [phone] Med Refill Social History Tobacco Use Types [...] with others, in a hotel, in a fdc, living outside on the street, on a [...] the past 12 months, has t he [employer], gas, oil or water [employer] threatened to shut off services in your [...] AM EDT Medications requested were sent to [facility] on 05/02/24 90 day supply and Aspirin not prescribedby PCP. * Telephone Encounter - Sean Arnold - 07/18/2024 11:11 AM EDT TC from pt requesting medication refill. Medications needing refill: albuterol (ProAir HFA) 108 (90 Base) MCG/ACT inhaler Aspirin Low Dose 81 MG EC tablet hydroCHLOROthiazide (HYDRODiuril) 25 MG tablet omeprazole (PriLOSEC) [address] capsule To be sent to: [facility] - [place] - 230 [facility] documented in this encounter Plan of Treatment Upcoming Encounters Date Type Department Care Team (Late st Contact Info) Description 09/26/2024 2:15 PM EDT Clinical Support [address] [address] Nalini Blum RN 10/31/2024 3:15 PM EDT Office Visit [address] [address] Juani Sosa ANP 230 [place] [address] documented as of this encounter Visit Diagnoses Not on filedocumented in this encounter Additional Health Concerns Assessment Noted Time PHQ-9 Depression Total Score: 16 025 11:09 AM EST documented as of this encounter Care Teams Flight Crew Scheduler Relationship Specialty Start Date End Date Juani Sosa ANP [address] [place] [phone] PCP - General Family Medicine 02/11/22 Lilian Varghese Coater Operator Insulation BoardFrozen Food Department Manager 07/02/23 documented as of this encounter
== END 2024-09-15 14:25 | disposition home or self-care (01) ==
LOC: HO.HVS 13:55
PROVIDERS: Visit Provider Physician Assistant Surgical
DX: I83.11 Varicose veins of right lower extremity with inflammation (principal); I83.12 Varicose veins of left lower extremity with inflammation
CPT/HCPCS: 99214

== ENCOUNTER → 2024-09-15 13:54 | Outpatient (BNVA) | payer MEDICAID, SELFPAY | PROVIDERS: Visit Provider Physician Assistant Surgical | DX: I83.11 Varicose veins of right lower extremity with inflammation (principal); I83.12 Varicose veins of left lower extremity with inflammation | CPT/HCPCS: 99212 ==

== ENCOUNTER 2024-09-26 16:33 | Outpatient (REF) | payer MEDICAID, SELFPAY ==
--- OUTSIDE RECORDS SUMMARY | 2024-09-26 16:36 | XMS_ITS | Encounter Summary ---
Author Organization [facility] Address [address] [place] [address] [address] [place] [address] Care Team Providers Care Trim Mechanic Name Role Phone Juani Sosa Primary Care Provider [phone] Reason for Visit * Reason Onset Date Comments Med Refill 07/18/2024 Encounter Details Date Type Department Care Team ([facility] Contact Info) Description 07/18/2024 Telephone [facility]INE 230 [place], [place] [phone] Juani Sosa ANP 230 [place], [place] [phone] Med Refill Social History Tobacco Use Types [...] the past 12 months, has t he [employer], gas, oil or water [employer] threatened to shut off services in your [...] AM EDT Medications requested were sent to [facility] on 05/02/24 90 day supply and Aspirin not prescribedby PCP. * Telephone Encounter - Sean Arnold - 07/18/2024 11:11 AM EDT TC from pt requesting medication refill. Medications needing refill: albuterol (ProAir HFA) 108 (90 Base) MCG/ACT inhaler Aspirin Low Dose 81 MG EC tablet hydroCHLOROthiazide (HYDRODiuril) 25 MG tablet omeprazole (PriLOSEC) [address] capsule To be sent to: [facility] - [place] - 230 [facility] documented in this encounter Plan of Treatment Upcoming Encounters Date Type Department Care Team (Late st Contact Info) Description 10/17/2024 1:15 PM EDT Clinical Support [address] [address] Nalini Blum RN 10/31/2024 3:15 PM EDT Office Visit [facility] [address] [place] [address] Juani Sosa ANP 230 [place] [address] documented as of this encounter Visit Diagnoses Not on filedocumented in this encounter Additional Health Concerns Assessment Noted Time PHQ-9 Depression Total Score: 16 025 11:09 AM EST documented as of this encounter Care Teams Trim Mechanic Relationship Specialty Start Date End Date Juani Sosa ANP [address] [place] [id number] PCP - General Family Medicine 02/11/22 Lilian Varghese Sandblast OperatorLoader Semiconductor Dies 07/02/23 documented as of this encounter
[2024-09-29 12:43] LABS: Fentanyl, Ur 19.3; Norfentanyl, Ur NEGATIVE
== END 2024-09-26 16:34 | disposition home or self-care (01) ==
LOC: HO.HHCLNP 16:33
PROVIDERS: Visit Provider Family Medicine
DX: F11.20 Opioid dependence, uncomplicated (principal)
CPT/HCPCS: 80354

== ENCOUNTER → 2024-10-19 12:42 | Outpatient (BNV) | payer MEDICAID, SELFPAY | PROVIDERS: Emergency Provider Emergency Medicine; PCP Nurse Practitioner Primary Care; Visit Provider Radiology Diagnostic Radiology | DX: K80.20 Calculus of gallbladder without cholecystitis without obstruction (principal); K59.00 Constipation, unspecified | CPT/HCPCS: 74018; 76705 ==

== ENCOUNTER 2024-10-19 13:18 | Emergency (ER) | payer MEDICAID, SELFPAY ==
--- NOTE | ~2024-10-19 | US_ITS ---
EXAMINATION: US ABDOMEN LIMITED CLINICAL INFORMATION: Upper abd pain, pls eval for gallstones. COMPARISON: CT of abdomen/pelvis on August 17, 2024 TECHNIQUE: Real-time imaging of the right upper quadrant abdominal viscera. FINDINGS: GALLBLADDER: Nondistended gallbladder contains at least 2 gallstones (measuring about 2.0 cm) at the level of the neck and small amount of sludge. No abnormal gallbladder wall thickening. No pericholecystic fluid. COMMON BILE DUCT: Mildly dilated, with caliber measuring 0.7 cm in diameter. US/US abdomen limited IMPRESSION: 1. Cholelithiasis without sonographic evidence of acute cholecystitis. 2. Mildly dilated common bile duct up to 0.7 cm, without identification of obstructing stones. Electronically signed by: Selena Massey MD 10/19/2024 03:34 PM EDT
--- NOTE | ~2024-10-19 | XR_ITS ---
EXAMINATION: XR ABDOMEN KUB CLINICAL INDICATION: constipation COMPARISON: August 17, 2024 CT TECHNIQUE: AP view of the abdomen. FINDINGS: Moderate stool is present in the transverse colon. There is a small amount stool in the colon otherwise. Small amount of small bowel gas is visible. XR/XR KUB IMPRESSION: Nonspecific bowel gas pattern with moderate stool in the transverse colon. Electronically signed by: Richie Henderson MD 10/19/2024 01:52 PM EDT
[2024-10-19 13:22] VITALS: BP 147/66; PULSE 89; RESP 18; TEMP 36.4; O2SAT 96; BMI 39.8
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
[2024-10-19 13:39] LABS: MANUAL DIFF FLAG NO
[2024-10-19 13:46] LABS: Hematocrit 36.3 % (37.0-47.0); Hemoglobin 12.0 g/dl (12.0-16.0); Imm Gran Abs Auto 0.02 X10*3/uL (0.00-0.03); Imm Gran Pct Auto 0.3 % (0.0-0.4); Lymphocytes Absolute Auto 2.1 X10*3/uL (1.2-4.9); Mean Corpuscular HGB Conc 33.1 g/dl (31.0-35.0); Mean Corpuscular Hemoglobin 27.3 pg (27.0-33.0); Mean Corpuscular Volume 82.7 fL (80.0-98.0); NRBC Abs Auto 0.000 X10*3/uL (0.0-0.012); NRBC Pct Auto 0.0 /100WBC (0.0-0.2); Platelet Count 323 X10*3/uL (160-400); Red Blood Count 4.39 X10*6/uL (4.20-5.50); White Blood Count 6.6 X10*3/uL (4.8-10.8)
[2024-10-19 13:57] LABS: Alanine Aminotransferase 22 U/L (0-31); Albumin Level 4.0 g/dL (3.5-5.0); Alkaline Phosphatase 151 U/L (39-117); Anion Gap 12 (12-20); Aspartate Amino Transferase 21 U/L (5-31); Blood Urea Nitrogen 12 mg/dL (9-16); Calcium 9.1 mg/dL (8.4-10.2); Carbon Dioxide 27 mmol/L (22-29); Chloride 106 mmol/L (96-108); Creatinine Clr Calc Pharmacy 120.9; Estimated Glomerular Filt Rate > 60; Lipase 6 U/L (8-78); Magnesium 1.9 mg/dL (1.6-2.6); Potassium 4.1 mmol/L (3.3-5.1); Sodium 141 mmol/L (135-145); Total Protein 7.5 g/dL (6.5-8.0)
--- OUTSIDE RECORDS SUMMARY | 2024-10-19 15:13 | XMS_ITS | Clinical Summary ---
Author Organization Located Within [facility] Address [address] [facility] [address] [place] [phone] Phone Care Team Providers Care Cloth Layer Name Role Phone Unknown, Unknown Primary Care Provider Ramesh ramos Social History Tobacco Use Types Packs/Day Years Used Date Smoking Tobacco: Never Assessed Education Answer Date Recorded Are you interested in more education? Not on stella e 07/18/2022 Are you concerned about learning? Not on file 07/18/2022 No 07/18/2022 No 07/18/2022 Digital Access Answer Date Recorded No 08/19/2022 No 08/19/2022 No 08/19/2022 Reliable internet access at home? Not on file 08/19/2022 Device with a working camera? Not on file Comments Unknown Sex and Gender Information Value Date Recorded Sex Assigned at Not on file Legal Sex Female 12:36 PM EDT Gender Identity Not on file Sexual Orientation Not on file Plan of Treatment Health Maintenance Due Date Last Done Comments Adult Td,Tdap Booster 1966 LIPID PANEL 1966 DEPRESSION SCREENING 1978 HEPATITIS C SCREENING 1984 HIV ONE-TIME SCREENING (18-6 5 YEARS) 1984 PAP SMEAR 07/30/1987 MAMMOGRAM 2006 PNEUMOCOCCAL VACCINES (50+ y ears) (1 of 1 - PCV) 2016 ZOSTER VACCINES (1 of 2) 2016 COVID-19 VACCINE ( - 2023-2 5 season) 2023 07/24/2020 COLORECTAL CANCER SCREENING Completed HEPATITIS A VACCINES Aged Out No long er eligible based on patient's age to complete this topic HIB VACCINES Aged Out No longer eligi ble based on patient's age to complete this topic MENINGOCOCCAL VACCINES (ACWY) Aged Out No longer eligible based on patient's age to complete this topic MENINGOCOCCAL VACCINES (B) Aged Out N o longer eligible based on patient's age to complete this topic Medical Devices Not on file Insurance C3 ACO C3 ACO C3 ACO C3 ACO C3 ACO C3 ACO C3 ACO C3 ACO C3 ACO Care Teams Cloth Layer Relationship Specialty Start Date End Date Unknown, Unknown, PCP - General 08/28/17 Additional Source Comments The information contained in this document represents components of the legal health record. It is not the complete legal health record.Located [facility]
--- OUTSIDE RECORDS SUMMARY | 2024-10-19 15:13 | XMS_ITS | Encounter Summary ---
Author Organization [employer] Address [address] [place] [address] [address] [place] [address] Care Team Providers Care Grain Drier Name Role Phone Juani Sosa Primary Care Provider [phone] Reason for Visit * Reason Onset Date Comments Med Refill 07/18/2024 Encounter Details Date Type Department Care Team ([facility] Contact Info) Description 07/18/2024 Telephone [facility] [address] [place], [place] [phone] Juani Sosa ANP [address] [place], [place] [phone] Med Refill Social History Tobacco Use Types [...] the past 12 months, has t he [employer], gas, oil or water [employer] threatened to shut off services in your [...] AM EDT Medications requested were sent to [facility] on 05/02/24 90 day supply and Aspirin not prescribedby PCP. * Telephone Encounter - Sean Arnold - 07/18/2024 11:11 AM EDT TC from pt requesting medication refill. Medications needing refill: albuterol (ProAir HFA) 108 (90 Base) MCG/ACT inhaler Aspirin Low Dose 81 MG EC tablet hydroCHLOROthiazide (HYDRODiuril) 25 MG tablet omeprazole (PriLOSEC) [address] capsule To be sent to: [facility] - [place] - [address] [facility] documented in this encounter Plan of Treatment Upcoming Encounters Date Type Department Care Team (Late st Contact Info) Description 10/19/2024 3:20 PM EDT Office Visit [facility] [address] [place] [id number] 10/31/2024 3:15 PM EDT Office Visit [address] [address] Juani Sosa ANP [address] [place] [address] 11/07/2024 3:15 PM EDT Clinical Support [address] [address] Nalini Blum RN documented as of this encounter Visit Diagnoses Not on filedocumented in this encounter Additional Health Concerns Assessment Noted Time PHQ-9 Depression Total Score: 16 025 11:09 AM EST documented as of this encounter Care Teams Grain Drier Relationship Specialty Start Date End Date Juani Sosa ANP [address] [place] [id number] PCP - General Family Medicine 02/11/22 Lilian Varghese [employer] 07/02/23 documented as of this encounter
[2024-10-19 16:24] VITALS: BP 147/66; PULSE 89; RESP 18; TEMP 36.4; O2SAT 96
== END 2024-10-19 16:36 | disposition home or self-care (01) ==
PROVIDERS: Emergency Provider Emergency Medicine; PCP Nurse Practitioner Primary Care
DX: K80.20 Calculus of gallbladder without cholecystitis without obstruction (principal); R10.10 Upper abdominal pain, unspecified
CPT/HCPCS: 36415; 74018; 76705; 80053; 83690; 83735; 85025; 86140; 96372; 99283; 99284; J1885

== ENCOUNTER 2024-10-31 10:36 | Outpatient (AMB) | payer MEDICAID, SELFPAY ==
--- NOTE | 2024-10-31 10:43 | MHC.OFFVIS ---
Vital Signs 10/31/24 10:48 Height 5 ft 4 in Weight 240 lb BMI 41.2 Intake Visit Reasons: OV- Bilateral knee pain/ swelling Intake Note: Gaby is a 59 year old female who presents with complaints of progressively worsening bilateral knee pains, right greater than left. She describes her right knee pain as sharp and severe in nature, 10/10. She has been walking with a walker because of her pain. Her symptoms have gotten worse over the last few years in spite of continued non operative treatments. She has had both cortisone injections and viscosupplementation injections. The most recent injections gave her no relief. She has tried Tylenol and anti-inflammatory medicines as well as physical therapy exercises which gave her no relief. At this point her right knee pain is interfering with her activities of daily living and her ability to sleep well through the night. The patient has difficulty walking even short distances because of her pain. Allergies lisinopril Allergy (Severe, Verified 10/31/24 10:47) Angioedema hydroxyzine (HYDROXYZINE) Adverse Reaction (Intermediate, Verified 10/31/24 10:47) reports redness and swelling Medication List - Last Reconciled 10/31/24 by Tim Mcdermott MD acetaminophen 1,000 mg (2 x 500 mg) PO Q8H PRN albuterol sulfate 90 mcg/actuation (ProAir HFA) 2 puffs inhalation Q4-6H PRN aspirin 81 mg PO DAILY buprenorphine-naloxone 8-2 mg (Suboxone) 10 mg sublingual BID cetirizine 10 mg PO DAILY clonidine HCl 0.1 mg PO BID hydrochlorothiazide 12.5 mg PO DAILY ibuprofen 400 mg PO Q6H PRN levofloxacin 500 mg PO DAILY 5 days metoprolol succinate ER (Toprol XL) 25 mg PO DAILY metronidazole 500 mg PO TID 5 days morphine 15 mg PO Q8H PRN naloxone 4 mg/actuation (Narcan) 0 sprays intranasal prednisone 40 mg (2 x 20 mg) PO DAILY 5 days PFSH Medical History Left against medical advice Angioedema History of fatty infiltration of liver History of alcohol dependence History of heroin use Chronic knee pain Chronic back pain History of seizure History of panic disorder History of opioid abuse Depression HTN (hypertension) History of left bundle branch block (LBBB) Migraine Anxiety Asthma Surgical History Hx of exploratory laparotomy Hx of colonoscopy Family History Mother Heart disease Arthritis HTN (hypertension) Social History Household Members: None Housing: House Do you presently have visiting nurse or other home services: No Alcohol intake: current Alcohol intake frequency: does not drink Patient Tobacco Use Status: Former Tobacco user Years Smoked: 10 +/- Substance Use Type: Inhalants service: No Current occupational status: unemployed Physical Exam Vital Signs: BMI result Body Mass Index 41.2 Const Other: Well-nourished well-developed very friendly female awake alert and oriented x3 in no acute distress Extrem Other: Right knee examination shows a minimal effusion, palpable crepitus with range of motion, pain with range of motion, no instability Results Reviewed Results Reviewed: X-rays of the patient's right knee taken previously show end-stage degenerative joint disease with grade 4 [id number] arthritis, subchondral sclerosis, osteophyte formation, no acute bony abnormalities Assessment & Plan Assessment & Plan (1) Osteoarthritis of right knee: Code(s): M17.11 - Unilateral primary osteoarthritis, right knee Category: Medical Plan Ms. Arteaga presents with bilateral knee pains, right greater than left, due to end-stage degenerative joint disease. I had a lengthy discussion with the patient regarding the treatment options. At this point she has failed continued non operative treatments. The risks and benefits of right total knee replacement surgery were discussed at length with the patient. The patient is interested in proceeding with surgery. She will be scheduled for next available date. She will follow up as instructed. Feel free to call me at any time should questions regarding her orthopedic management arise. I spent 22 minutes in reviewing the patient's records and imaging studies, seeing the patient and documenting in the medical record. Coding Level of Care Code Est Pt Level 3 (26000) Complex EM visit Add On G2211 Diagnoses Osteoarthritis of right knee M17.11
[2024-10-31 10:48] VITALS: BMI 41.2
--- OUTSIDE RECORDS SUMMARY | 2024-10-31 11:18 | XMS_ITS | Encounter Summary ---
Author Organization [employer] Address [address] [facility] [address] [place] [address] Care Team Providers Care Tank Systems Maintainer Name Role Phone Juani Sosa Primary Care Provider [phone] Aldo Araiza RN Unavailable [phone] Claudine Arnold Unavailable Reason for Visit * Reason Onset Date Comments Med Refill 07/18/2024 Encounter Details Date Type Department Care Team (Late st Contact Info) Description 07/18/2024 Telephone [facility] [address] [place], [place] [phone] Juani Sosa ANP [address] [place] [address] Med Refill Social History Tobacco Use Types [...] AM EDT Medications requested were sent to [facility] on 05/02/24 90 day supply and Aspirin not prescribedby PCP. * Telephone Encounter - Sean Arnold - 07/18/2024 11:11 AM EDT TC from pt requesting medication refill. Medications needing refill: albuterol (ProAir HFA) 108 (90 Base) MCG/ACT inhaler Aspirin Low Dose 81 MG EC tablet hydroCHLOROthiazide (HYDRODiuril) 25 MG tablet omeprazole (PriLOSEC) [address] capsule To be sent to: [facility] - [place], [place] - [address] [place] [address] documented in this encounter Plan of Treatment Upcoming Encounters Date Type Department Care Team (Late st Contact Info) Description 10/31/2024 3:15 PM EDT Office Visit [address] [address] Juani Sosa ANP [address] [place] [phone] 11/07/2024 3:15 PM EDT Clinical Support [address] [address] Nalini Blum RN documented as of this encounter Visit Diagnoses Not on filedocumented in this encounter Additional Health Concerns Assessment Noted Time PHQ-9 Depression Total Score: 16 025 11:09 AM EST documented as of this encounter Care Teams Tank Systems Maintainer Relationship Specialty Start Date End Date Juani Sosa ANP [address] [place] [address] PCP - General Family Medicine 02/11/22 Aldo Araiza, SIRISHA [address] [place] [id number] Registered Nurse Family Medicine 10/20/24 Claudine Arnold 10/20/24 Lilian Varghese Analytical Statistician[employer] 07/02/23 documented as of this encounter
--- OUTSIDE RECORDS SUMMARY | 2024-10-31 11:18 | XMS_ITS | Clinical Summary ---
Author Organization [facility] Address [address] [facility] [place] [address] [place] [phone] Phone Care Team Providers Care Tool Grinder Operator External Name Role Phone Unknown, Unknown Primary Care [...] ACO C3 ACO C3 ACO Care Teams Tool Grinder Operator External Relationship Specialty Start Date End Date Unknown, Unknown, PCP - General 08/28/17 Additional Source Comments The information contained in this document represents components of the legal health record. It is not the complete legal health record.[facility]
== END 2024-10-31 11:00 | disposition home or self-care (01) ==
LOC: HO.HOS 10:37
PROVIDERS: PCP Nurse Practitioner Primary Care; Visit Provider Orthopaedic Surgery
DX: M17.11 Unilateral primary osteoarthritis, right knee (principal)
CPT/HCPCS: 99213

== ENCOUNTER → 2024-10-31 10:36 | Outpatient (BNVA) | payer MEDICAID, SELFPAY | PROVIDERS: PCP Nurse Practitioner Primary Care; Visit Provider Orthopaedic Surgery | DX: M25.562 Pain in left knee (principal); M25.561 Pain in right knee; M17.11 Unilateral primary osteoarthritis, right knee | CPT/HCPCS: 99212 ==

== ENCOUNTER 2024-12-29 08:25 | Outpatient (REF) | payer MEDICAID, SELFPAY ==
--- NOTE | ~2024-12-29 | XR_ITS ---
EXAMINATION: XR KNEE, LEFT CLINICAL INFORMATION: M25.562 - Pain in left knee COMPARISON: None available. TECHNIQUE: Three views of the left knee. FINDINGS: No visible acute fracture or dislocation. Mild-moderate medial compartment arthritis. Mild patellofemoral arthritis. Small effusion. No suspicious bony lesions. No abnormal soft tissue calcification. XR/XR knee LT 3V IMPRESSION: Mild-moderate medial compartment arthritis. Small effusion. Electronically signed by: Dallas Merrill MD 12/29/2024 09:53 AM EDT
--- OUTSIDE RECORDS SUMMARY | 2024-12-30 08:33 | XMS_ITS | Encounter Summary ---
Author Organization [employer] Address [address] [facility] 7t [place] [address] Care Team Providers Care Medicare Insurance Specialist Name Role Phone Juani Sosa Primary Care Provider [phone] Aldo Araiza RN Unavailable [phone] Claudine Arnold Unavailable Reason for Visit * Reason Onset Date Comments Med Refill 07/18/2024 Encounter Details Date Type Department Care Team (Late st Contact Info) Description 07/18/2024 Telephone [facility] [address] [place], [place] [phone] Juani Sosa ANP [address] [place], [place] [phone] Med Refill Social History Tobacco Use Types [...] AM EDT Medications requested were sent to [facility] on 05/02/24 90 day supply and Aspirin not prescribedby PCP. * Telephone Encounter - Sean Arnold - 07/18/2024 11:11 AM EDT TC from pt requesting medication refill. Medications needing refill: albuterol (ProAir HFA) 108 (90 Base) MCG/ACT inhaler Aspirin Low Dose 81 MG EC tablet hydroCHLOROthiazide (HYDRODiuril) 25 MG tablet omeprazole (PriLOSEC) [address] capsule To be sent to: [facility] - [place], [place] - [address] [place] [address] documented in this encounter Plan of Treatment Upcoming Encounters Date Type Department Care Team (Late st Contact Info) Description 01/09/2025 1:00 PM EDT Clinical Support [address] [address] Nalini Blum RN 01/11/2025 2:30 PM EDT Office Visit [address] [address] Juani Sosa ANP [address] [place] [address] 01/18/2025 3:45 PM EDT Procedure Visit [address] [address] Chelsey Mckenzie CNM [address] [place] [address] documented as of this encounter Visit Diagnoses Not on filedocumented in this encounter Additional Health Concerns Assessment Noted Time PHQ-9 Depression Total Score: 16 025 11:09 AM EST documented as of this encounter Care Teams Medicare Insurance Specialist Relationship Specialty Start Date End Date Juani Sosa ANP [address] [place] [address] PCP - General Family Medicine 02/11/22 Aldo Araiza, SIRISHA [address] [place] [address] Registered Nurse Family Medicine 10/20/24 Claudine Arnold 10/20/24 Lilian Varghese Pyrometer MechanicEscalator Installer 07/02/23 documented as of this encounter
--- OUTSIDE RECORDS SUMMARY | 2024-12-30 08:33 | XMS_ITS | Encounter Summary ---
Author Organization [employer] Address [address] [facility] 7t [place] [address] Care Team Providers Care Fusing Machine Feeder Name Role Phone Juani Sosa Primary Care Provider [phone] Aldo Araiza RN Unavailable [phone] Claudine Arnold Unavailable Reason for Visit * Reason Comments Med Refill Encounter Details Date Type Department Care Team (Late st Contact Info) Description 10/17/2024 Refill [facility] [address] [place], [place] [phone] Juani Sosa ANP [address] [place] [address] Moderate persistent asthma without complication Social History [...] Description 01/09/2025 1:00 PM EDT Clinical Support [address] [address] Nalini Blum, SIRISHA 01/11/2025 2:30 PM EDT Office Visit [facility] [address] [place] [address] Juani Sosa ANP [address] [place] [address] 01/18/2025 3:45 PM EDT Procedure Visit [facility] [address] [place] [address] Chelsey Mckenzie CNM [address] [place] [address] documented as of this encounter Visit Diagnoses Diagnosis Moderate persistent asthma without complication documented in this encounter Additional Health Concerns Assessment Noted Time PHQ-9 Depression Total Score: 16 05/17/ 025 11:09 AM EST documented as of this encounter Care Teams Fusing Machine Feeder Relationship Specialty Start Date End Date Juani Sosa ANP [address] [place] [address] PCP - General Family Medicine 02/11/22 Aldo Araiza, SIRISHA [address] [place] [address] Registered Nurse Family Medicine 10/20/24 Claudine Arnold 10/20/24 Lilian Varghese Supervisor Lending ActivitiesAutomation Engineer 07/02/23 documented as of this encounter
--- OUTSIDE RECORDS SUMMARY | 2024-12-30 08:34 | XMS_ITS | Encounter Summary ---
Author Organization [employer] Address [address] 7[address] [place] [address] Care Team Providers Care Coffee Bar Attendant Name Role Phone Sosa Juani MOSCOSO Primary Care Provider [phone] Aldo Araiza RN Unavailable [phone] Claudine Arnold Unavailable Encounter Details Date Type Department Care Team (Late st Contact Info) Description 04/09/2023 Orders Only [facility] [address] [place], [place] [phone] Nalini Blum, SIRISHA Uncomplicated opioid dependence (CMS/HCC) [...] Description 01/09/2025 1:00 PM EDT Clinical Support [address] [address] Nalini Blum RN 01/11/2025 2:30 PM EDT Office Visit [facility] [address] [place], [place] [phone] Juani Sosa, ANP [address] [place], [place] [phone] 01/18/2025 3:45 PM EDT Procedure Visit [facility] [address] [place], [place] [phone] Chelsey Mckenzie, CNM [address] [place], [place] [phone] Scheduled Orders Name Type Priority Associated Diagnoses [...] Visit Diagnoses Diagnosis Uncomplicated opioid dependence (CMS/HCC) (HCC) documented in this encounter Additional Health Concerns Assessment Noted Time PHQ-9 Depression Total Score: 14 024 10:44 AM EST documented as of this encounter Care Teams Coffee Bar Attendant Relationship Specialty Start Date End Date Juani Sosa ANP [address] [place] [address] PCP - General Family Medicine 02/11/22 Aldo Araiza RN [address] [place] [address] Registered Nurse Family Medicine 10/20/24 Claudine Arnold 10/20/24 Lilian Varghese Tile InstallerHospital Director 07/02/23 documented as of this encounter
--- OUTSIDE RECORDS SUMMARY | 2024-12-30 08:34 | XMS_ITS ---
Author Organization [employer] Address [address] [place] [address] 7t [place] [address] Care Team Providers Care Overnight Cashier Name Role Phone Juani Sosa Primary Care Provider [phone] Aldo Araiza RN Unavailable [phone] Claudine Arnold Unavailable CHW Complex Status:Enrolled (Active) Start date:10/20/2024 Enrollment date:11/02/2024 Enrollment reason:ADT Feed Overview ED- Pt went to [facility] ED on 10/19/24. Please outreach for enrollment. Case Team Name Relationship Phone Claudine Arnold(Responsible Staff) [phone] Continued Care and Services Coordination
--- OUTSIDE RECORDS SUMMARY | 2024-12-30 08:34 | XMS_ITS | Encounter Summary ---
Author Organization [employer] Address [address] [facility] 7t [place] [address] Care Team Providers Care Personal Care Aide Name Role Phone Juani Sosa Primary Care Provider [phone] Aldo Araiza RN Unavailable Claudine Arnold Unavailable Reason for Visit * Reason Comments Care Coordination SDOH f/u -appointmen t reminder Encounter Details Date Type Department Care Team (Latest Contact Info) Description 12/28/2024 Patient Outreach [facility] [address] [place], [place] [phone] Juani Sosa ANP [address] [place] [address] Care Coordination (SDOH f/u -appointment reminder) Social History Tobacco Use Types Packs/Day Years [...] with others, in a hotel, in a chcf, living outside on the street, on a [...] as of this encounter Progress Notes * Claudine Arnold - 12/28/2024 9:31 AM EDT CHW Claudine Arnold placed outbound call to patient introducing herself from [facility] CM Department, in regards to remind patient of appt for 12/29/24 245pm at [facility] cardio. Patient's name and was confirmed. Patient is aware and confirmed will be available and has no barriers on attending this appointment. Patient verbalized understanding and agrees with plan. (Patient also stated she is still in contact with Macey doe [facility] and continues to help with her struggles of homelessness.) CHW will follow up with patient within 10 days.) documented in this encounter Plan of Treatment Upcoming Encounters Date Type Department Care Team (Late st Contact Info) Description 01/09/2025 1:00 PM EDT Clinical Support [address] [address] Nalini Blum, SIRISHA 01/11/2025 2:30 PM EDT Office Visit [address] [address] Juani Sosa ANP [address] [place] [address] 01/18/2025 3:45 PM EDT Procedure Visit [address] [address] Chelsey Mckenzie CNM [address] [place] [address] documented as of this encounter Visit Diagnoses Not on filedocumented in this encounter Additional Health Concerns Assessment Noted Time PHQ-9 Depression Total Score: 15 025 1:15 PM EDT documented as of this encounter Care Teams Personal Care Aide Relationship Specialty Start Date End Date Juani Sosa ANP [address] [place] [address] PCP - General Family Medicine 02/11/22 Aldo Araiza, SIRISHA [address] [place] [address] Registered Nurse Family Medicine 10/20/24 Claudine Arnold 10/20/24 Lilian Varghese Event TechnicianEcommerce Analyst 07/02/23 documented as of this encounter
--- OUTSIDE RECORDS SUMMARY | 2024-12-30 08:34 | XMS_ITS | Encounter Summary ---
Author Organization [email or web address] Address [address] [facility] [address] 7t [place] [address] Care Team Providers Care Maintenance Tech Name Role Phone Juani Sosa Primary Care Provider [phone] Aldo Araiza RN Unavailable [phone] Claudine Arnold Unavailable Reason for Visit * Reason Comments Med Change Request Encounter Details Date Type Department Care Team (Late st Contact Info) Description 08/05/2023 Refill [facility] [address] [place] [address] Leeanne Mandel FNP Moderate persistent asthma with [...] Description 01/09/2025 1:00 PM EDT Clinical Support [facility] [address] [place] [address] Nalini Blum, RN 01/11/2025 2:30 PM EDT Office Visit [facility] [address] [place] [address] Juani Sosa ANP [address] [place] [address] 01/18/2025 3:45 PM EDT Procedure Visit [facility] [address] [place] [address] Chelsey Mckenzie CNM [address] [place] [address] documented as of this encounter Visit Diagnoses Diagnosis Moderate persistent asthma with acute exacerbation documented in this encounter Additional Health Concerns Assessment Noted Time PHQ-9 Depression Total Score: 10 024 10:06 AM EST documented as of this encounter Care Teams Maintenance Tech Relationship Specialty Start Date End Date Juani Sosa ANP [address] [place] [address] PCP - General Family Medicine 02/11/22 Aldo Araiza RN [address] [place] [address] Registered Nurse Family Medicine 10/20/24 Claudine Arnold 10/20/24 Lilian Varghese Field CounselAir Brush Decorator 07/02/23 documented as of this encounter
--- OUTSIDE RECORDS SUMMARY | 2024-12-30 08:34 | XMS_ITS | Encounter Summary ---
Author Organization [employer] Address [address] [facility] [address] 7t [place] [address] Care Team Providers Care Orthodontic Technician Assistant Name Role Phone Juani Sosa Primary Care Provider [phone] Aldo Araiza RN Unavailable [phone] Claudine Arnold Unavailable Encounter Details Date Type Department Care Team (Late st Contact Info) Description 08/07/2023 Orders Only [facility] [address] [place] [address] Leeanne Mandel FNP Social History Tobacco Use [...] Description 01/09/2025 1:00 PM EDT Clinical Support [address] [address] Nalini Blum RN 01/11/2025 2:30 PM EDT Office Visit [address] [address] Juani Sosa ANP [address] [place] [address] 01/18/2025 3:45 PM EDT Procedure Visit [address] [address] Chelsey Mckenzie CNM [address] [place] [address] documented as of this encounter Visit Diagnoses Not on filedocumented in this encounter Additional Health Concerns Assessment Noted Time PHQ-9 Depression Total Score: 10 024 10:06 AM EST documented as of this encounter Care Teams Orthodontic Technician Assistant Relationship Specialty Start Date End Date Juani Sosa ANP [address] [place] [address] PCP - General Family Medicine 02/11/22 Aldo Araiza RN [address] [place] [address] Registered Nurse Family Medicine 10/20/24 Claudine Arnold 10/20/24 Lilian Varghese Social Science ProfessorManufacturing Laborer 07/02/23 documented as of this encounter
--- OUTSIDE RECORDS SUMMARY | 2024-12-30 08:34 | XMS_ITS ---
Author Organization [employer] Address [address] [place] [address] 7t [place] [address] Care Team Providers Care Pediatric Np Name Role Phone Juani Sosa Primary Care Provider Aldo Araiza RN Unavailable [phone] Claudine Arnold Unavailable CM Complex Status:Enrolled (Active) Start date:10/20/2024 Enrollment date:11/02/2024 Enrollment reason:ADT Feed Overview ED- Pt went to [facility] ED on 10/19/24. Case Team Name Relationship Phone Aldo Araiza RN(Responsible Staff) Registered Nurse [phone] Continued Care and Services Coordination
--- OUTSIDE RECORDS SUMMARY | 2024-12-30 08:34 | XMS_ITS | Encounter Summary ---
Author Organization [employer] Address [address] [facility] [address] 7t [place] [address] Care Team Providers Care Director Loan Name Role Phone Juani Sosa Primary Care Provider [phone] Aldo Araiza RN Unavailable [phone] Claudine Arnold Unavailable Reason for Visit * Reason Onset Date Comments Durable Medical Equipment 02/17/2023 Edvin Encounter Details Date Type Department Care Team ([facility] st Contact Info) Description 02/17/2023 Telephone [facility] [address] [place], [place] [phone] Juani Sosa ANP [address] [place] [address] Durable Medical Equipment (Walker) Social History Tobacco [...] Walker states requested back in November however underwriter solicitation director does not see it on patients chart. documented in this encounter Plan of Treatment Upcoming Encounters Date Type Department Care Team (Late st Contact Info) Description 01/09/2025 1:00 PM EDT Clinical Support [address] [address] Nalini Blum, RN 01/11/2025 2:30 PM EDT Office Visit [address] [address] Juani Sosa ANP [address] [place] [address] 01/18/2025 3:45 PM EDT Procedure Visit [address] [address] Chelsey Mckenzie CNM [address] [place] [address] documented as of this encounter Visit Diagnoses Not on filedocumented in this encounter Additional Health Concerns Assessment Noted Time PHQ-9 Depression Total Score: 16 023 9:58 AM EDT documented as of this encounter Care Teams Director Loan Relationship Specialty Start Date End Date Juani Sosa ANP [address] [place] [address] PCP - General Family Medicine 02/11/22 Aldo Araiza, SIRISHA [address] [place] [address] Registered Nurse Family Medicine 10/20/24 Claudine Arnold 10/20/24 Lilian Varghese TeleradiologistTitle Clerk 07/02/23 documented as of this encounter
--- OUTSIDE RECORDS SUMMARY | 2024-12-30 08:34 | XMS_ITS | Clinical Summary ---
Author Organization [facility] Address [address] [facility] [address] [place] [address] Care Team Providers Care Band Aid Machine Operator Name Role Phone Crane Alona MOSCOSO Primary Care Provider [phone] Aldo Araiza RN Unavailable [phone] Claudine Arnold Unavailable Allergies Active Allergy Reactions [...] MG SL filmIndications:U ncomplicated opioid dependence (CMS/HCC) (HCC) Place 1 Film under the tongue 2 [...] sublingual filmIndications:O pioid type dependence, continuous (CMS/HCC) ([facility]) Place 1 Film under the tongue Once per day for 14 days. 14 Film 024 Active fluticasone (Flonase) 50 MCG/ACT nasal sprayIndications: Non-seasonal allergic rhinitis due to other allergic trigger Frazee 2 sprays into each nostril every day [...] EVERY DAY 90 tablet 1 025 Active triamcinolone (Kenalog) 0.1 % creamIndications: Rash of foot Apply topically 2 times daily. Call clinic if no improvement in 2 weeks 45 g 025 Active diclofenac (Cataflam) 50 MG tabletIndications :Acute [...] 1x/day for 4 days. 6 tablet Active Buprenorphine HCl-Naloxone HCl (Suboxone) 8-2 MG [...] think is appropriate to refer to an clinical trials specialist she may require further testing. In the meantime I have recommended against the use of NSAIDS going forward and protect herself when outdoors. Since her symptoms are resolved no need for treatment at the moment. Pt has Zyrtec at home which she will continue to take. Abnormal nuclear stress test 08/05/2023 Acute bronchitis with chroni c obstructive pulmonary disease (COPD) ([facility]/HCC) ([facility]) 08/05/2023 History of left bundle [...] retiring, pt will be referred to new [facility] Psychiatric provider. Pt is aware that appts will be via televisit and that provider will not be an [facility] employee. She gives permission to share PHI. [...] major depre ssive disorder with psychotic features (CMS/HCC) 07/18/2022 Tear of medial meniscus of knee 01/27/2020 01/30/2023 Anxiety 11/18/2017 Essential hypertension 09/03/2016 Moderate alcohol dependence (CMS/HCC) 09/03/2016 Uncomplicated opioid dependence (CMS/HCC) 2016 Panic disorder 09/03/2016 Tobacco dependence in remission [...] and Suboxone. She will also F/U with [facility] clinician Nilson and the supports of the [facility] program. F/U with me in 2-3 weeks. She agrees with the plan. Opioid abuse 07/02/2022 05/17/2024 Encounters Date Type Department Care Team Description 12/28/2024 Patient Outreach [address] [address] Alona Crane ANP Care Coordination ([facility] f/u -appointment reminder) 12/27/2024 Patient Outreach [address] [address] Alona Crane ANP Care Management (C3- f/u call) 12/19/2024 2:30 PM EDT Telemedicine [address] [address] Jacoby Donald MD Uncomplicated opioid dependence (CMS/HCC) (Primary Dx) 12/19/2024 Travel 12/14/[address] [address] Nalini Blum RN Opioid use disorder 12/13/2024 Patient Outreach [address] [address] Alona Crane ANP Care Coordination (SDTX f/u) 12/13/2024 Patient Outreach [facility] MEDICINE [address] [place] [address] Alona Crane ANP Care Management (C3CM- f/u call) 12/05/2024 Patient Outreach [address] [address] Alona Crane ANP 12/01/2024 Patient Outreach [address] [address] Alona Crane ANP Care Management (C3CM- f/u call) 11/30/2024 4:00 PM EDT Office Visit [facility] [address] [place] [phone] Jacoby Donald MD Pharyngitis, unspecified etiology (Primary Dx); Moderate persistent asthma without complication; Diffuse abdominal pain; Viral URI; Acute bronchitis with chronic obstructive pulmonary disease (COPD) ([facility]) ([facility]) 11/30/2024 Travel 11/29/[address] [address] Alona Crane ANP Nurse Triage 11/28/2024 1:45 PM EDT Telemedicine [address] [address] Nalini Blum RN Uncomplicated opioid dependence ([facility]) 11/28/2024 Travel 11/28/[address] [address] Nalini Blum RN 11/28/2024 Patient Outreach [address] [address] Alona Crane ANP Care Coordination (SDOH) 11/18/2024 Patient Outreach [address] [address] Alona Crane ANP Care Coordination (SDOH) 11/17/2024 9:00 AM EDT Office Visit [address] [address] Alona Crane ANP Bilateral leg edema (Primary Dx); Essential hypertension; Rash of foot; Acute pain of left knee 11/17/2024 Travel 11/17/2024 Patient Outreach [address] [address] Alona Crane ANP Care Coordination (SDOH f/u) 11/16/2024 Patient Outreach [address] [address] Alona Crane ANP Care Management (C3CM- f/u call) 11/14/[address] [address] Alona Crane ANP Medication Question 11/14/[address] [address] Alona Crane ANP Prepop 11/14/[address] [address] Nalini Blum RN Opioid use disorder 11/07/2024 3:15 PM EDT Clinical Support [address] [address] Nalini Blum RN Uncomplicated opioid dependence (CMS/[facility]) (Primary Dx) 11/07/2024 Travel 11/03/2024 Patient Outreach [address] [address] Alona Crane ANP Care Coordination (PT1) 11/02/2024 Plan of Care Documentation [address] [address] 11/02/2024 Patient Outreach [address] [address] Alona Crane ANP Care Management (C3- initial assessment/ enrollment) 11/02/2024 Patient Outreach [address] [address] Alona Crane ANP Care Coordination (SDOH) 11/01/2024 Patient Outreach [address] [address] Alona Crane ANP Care Coordination (CM/CHW appt reminder) 10/31/[address] [address] Nalini Blum RN Opioid use disorder 10/31/[address] [address] Alona Crane ANP 10/28/2024 Telephone [facility] MEDICINE [address] [place] [address] Alona Crane ANP chart prep 10/24/2024 Patient Outreach [address] [address] Alona Crane ANP Care Coordination (CM/CHW outreach) 10/20/2024 Patient Outreach [address] [address] Alona Crane ANP Care Coordination (CHW chart review) 10/20/2024 Patient Outreach [address] [address] Alona Crane ANP Care Management (C3CM- chart review) 10/20/2024 Patient Outreach [address] [address] Alona Crane ANP 10/19/2024 Orders Only GENERIC EXTERNAL DATA DEPARTMENT Provider, Generic External Data 10/17/2024 1:15 PM EDT Clinical Support [address] [address] Nalini Blum RN Uncomplicated opioid dependence ([facility]) 10/17/2024 Travel 10/17/2024 Refill [facility] MEDICINE [address] [place] [address] Alona Crane ANP Moderate persistent asthma without complication 10/10/2024 Refill [facility] MEDICINE [address] [place] [address] Nalini Blum, RN Opioid use disorder 10/06/[address] [address] Nalini Blum, RN Opioid use disorder from Last 3 Months Immunizations Immunization Administration [...] with others, in a hotel, in a penitentiary, living outside on the street, on a [...] Description 01/09/2025 1:00 PM EDT Clinical Support [address] [address] Nalini Blum, RN 01/11/2025 2:30 PM EDT Office Visit [address] [address] Alona Crane ANP [address] [place] [address] 01/18/2025 3:45 PM EDT Procedure Visit [address] [address] Chelsey Mckenzie CNM [address] [place] [address] Health Maintenance Due Date Last Done Comments [...] 04/03/2020 SDOH Screening 11/02/2025 11/02/2024 Tobacco Screening 12/19/2025 12/19/2024 Colorectal Cancer Screening 05/28/2027 FIT DNA/Cologuard 05/28/2027 [...] 2 VIEWS Routine 10/19/2024 12:42 PM EDT HEMOGLOBIN A1C Routine 07/21/2024 1:20 PM EDT [...] Influenza B OSOM (11/30/2024 4:16 PM EDT) [facility] Rapid Influenza B Ag Negative Negative, Indeterminate QC Media Lot # [id number] Lot# Expiration Date Swab 11/30/2024 4:16 PM EDT us Jacoby Donald MD POINT OF CARE TEST ENTER/EDIT OR DERABLES Final Result * POCT Rapid Influenza A OSOM (11/30/2024 4:14 PM EDT) [facility] Rapid Influenza A Ag Negative Negative, Indeterminate QC Media Lot # [id number] Lot# Expiration Date Swab Nasopharyngeal structure / Unknown 11/30/2024 4:14 PM EDT us Jacoby Donald MD POINT OF CARE TEST ENTER/EDIT OR DERABLES Final Result * POCT Rapid Covid-19 REYNOSO ID NOW (11/30/2024 4:05 PM EDT) [facility] Coronavirus Antigen PCR Negative Negative, Indeterminate, None Detected, Invalid, Specimen unsatisfactory for evaluation, Weakly Positive, 2+ QC Media Lot # [id number] Lot# Expiration Date 026 Swab 11/30/2024 4:05 PM EDT us Jacoby Donald MD POINT OF CARE TEST ENTER/EDIT OR DERABLES Final Result * POCT Rapid Strep A OSOM (11/30/2024 4:03 PM EDT) Pathologist [facility] Rapid Strep A Screen Negative Negative, None Detected QC Media Lot # [id number] Lot# Expiration Date Swab 11/30/2024 4:03 PM EDT Jacoby Donald MD POINT OF CARE TEST ENTER/EDIT OR DERABLES Final Result * (ABNORMAL) POCT JENNY-14 Urine Drug Screen (11/07/2024 3:13 PM EDT) [facility] THC Negative Negative Cocaine Screen, Urine Negative [...] procedure / Unknown 11/07/2024 3:13 PM EDT us Antonieta Kennedy MD POINT OF CARE TEST ENTER/EDIT OR DERABLES Final Result * US Abdomen Limited (10/19/2024 3:05 PM EDT) Anatomical Region Laterality Modality Abdomen Ultrasound 10/19/2024 3:05 PM EDT Narrative 10/19/2024 3:37 PM EDT [place] [address] Ultrasound Report Signed Patient: Gaby Arteaga MR#: [id number] 46 : 1965 Acct:[id number] Age/Sex: 59 / F ADM Date: 10/19/24 Loc: HO.ED Attending Dr: Ordering Physician: German Wilkerson MD Date of Service: 10/19/24 Procedure(s): US abdomen limited Accession Number(s): [id number] cc: German Wilkerson MD; ALONA CRANE NP [...] 10/19/24 1534 DD/ 1505 TD/TT: 10/19/24 1513 Flooring Salesperson: Procedure Note Donotuseinterpreter, Image - 10/19/[address] [address] Ultrasound Report Signed Patient: Wyatt Arteaga#: [id number] 46 : 1965Acct:[id number] Age/Sex: 59 / FADM Date: 10/19/24 Loc: HO.ED Attending Dr: Ordering Physician: German Wilkerson MD Date of Service: 10/19/24 Procedure(s): US abdomen limited Accession Number(s): [id number] cc: German Wilkerson MD; ALONA CRANE NP [...] 10/19/24 1534 DD/ 1505 TD/TT: 10/19/24 1513 Flooring Salesperson: us [facility] External Provider IMG US PROCEDURES Final Result * (ABNORMAL) CBC auto differential (10/19/2024 1:35 PM EDT) White Blood Count 6.6 4.8 - 10.8 X10*3/uL [facility] Red Blood Count 4.39 4.20 - 5.50 X10*6/uL [facility] Hemoglobin 12.0 12.0 - 16.0 g/dl [facility] Hematocrit 36.3(L) 37.0 - 47.0 % [facility] Mean Corpuscular Volume 82.7 80.0 - 98.0 fL [facility] Mean Corpuscular Hemoglobin 27.3 27.0 - 33.0 pg [facility] Mean Corpuscular HGB Conc 33.1 31.0 - 35.0 g/dl [facility] Red Cell Distribution Width 14.3 11.0 - 16.0 % [facility] Platelet Count 323 160 - 400 X10*3/uL [facility] Mean Platelet Volume 8.7(L) 9.4 - 12.3 fL [facility] Neutrophils Percent Auto 49.4 45 - 73 % [facility] Imm Gran Pct Auto 0.3 0.0 - 0.4 % [facility] Lymphocytes Percent Auto 32.0 20 - 40 % [facility] Monocytes Percent Auto 7.6 2 - 11 % [facility] Eosinophils Percent Auto 9.8(H) 0 - 4 % [facility] Basophils Percent Auto 0.9 0 - 2 % [facility] NRBC Pct Auto 0.0 0.0 - 0.2 /100WBC [facility] Neutrophils Absolute Auto 3.3 2.0 - 8.3 x10*3/uL [facility] Imm Gran Abs Auto 0.02 0.00 - 0.03 X10*3/uL [facility] Lymphocytes Absolute Auto 2.1 1.2 - 4.9 X10*3/uL [facility] Monocytes Absolute Auto 0.5 0.1 - 1.2 X10*3/uL [facility] Eosinophils Absolute Auto 0.7(H) 0.0 - 0.4 X10*3/uL [facility] Basophils Absolute Auto 0.1 0.0 - 0.2 X10*3/uL [facility] NRBC Abs Auto 0.000 0.0 - 0.012 X10*3/uL [facility] 10/19/2024 1:35 PM EDT 10/19/2024 1:38 PM EDT us Generic External Data Provider LAB BLOOD ORDERAB LES Final Result [facility] [address] [place] [phone] * Magnesium (10/19/2024 1:35 PM EDT) Magnesium 1.9 1.6 - 2.6 mg/dL [facility] 10/19/2024 1:35 PM EDT 10/19/2024 1:38 PM EDT us Generic External Data Provider LAB BLOOD ORDERAB LES Final Result Performing Organization Address City/[facility]/ZIP Co de Phone Number [facility] [address] [place] [phone] * (ABNORMAL) Lipase (10/19/2024 1:35 PM EDT) Lipase 6(L) 8 - 78 U/L [facility] 10/19/2024 1:35 PM EDT 10/19/2024 1:38 PM EDT Generic External Data Provider LAB BLOOD ORDERAB LES Final Result Performing Organization Address [facility] Co de Phone Number [facility] [address] [place] [address] [phone] * (ABNORMAL) Comprehensive Metabolic Panel (10/19/2024 1:35 PM EDT) Sodium 141 135 - 145 mmol/L [facility] Potassium 4.1 3.3 - 5.1 mmol/L [facility] Chloride 106 96 - 108 mmol/L [facility] Carbon Dioxide 27 22 - 29 mmol/L [facility] Anion Gap 12 12 - 20 [facility] Urea Nitrogen (BUN) 12 9 - 16 mg/dL [facility] Creatinine, Serum 0.60 0.5 - 1.4 mg/dL [facility] Creatinine Clr Calc Pharmacy 120.9 [facility] Comment:Provided height and weight: 162.56 cm,105.3 kg.eGFR (calculated from the MDRD study equation) and eCrCl(calculated from the Cockcroft-Gault equation) are based ondifferent parameters and may not yield comparable results.If eCrCl result is absurd, please check patient'sheight/weight. Estimated Glomerular Filt Rate >60 [facility] Comment:Chronic Kidney Disea se: Estimated GFR < 60 mL/min/1.41y0Siarlb Kidney Disease: Estimated GFR < 15 mL/min/1.73m2 Glucose 111 60 - 115 mg/dL [facility] Calcium 9.1 8.4 - 10.2 mg/dL [facility] Bilirubin, Total 0.5 0.0 - 1.0 mg/dL [facility] Aspartate Amino Transferase 21 5 - 31 U/L [facility] Alanine Aminotransferase 22 0 - 31 U/L [facility] Total Protein 7.5 6.5 - 8.0 g/dL [facility] Albumin Level 4.0 3.5 - 5.0 g/dL [facility] Alkaline Phosphatase 151(H) 39 - 117 U/L [facility] 10/19/2024 1:35 PM EDT 10/19/2024 1:38 PM EDT Generic External Data Provider LAB BLOOD ORDERAB LES Final Result Performing Organization Address City/State/[facility] Co de Phone Number [facility] [address] [place] [phone] * XR KUB and Upright 2 Views (10/19/2024 12:42 PM EDT) Anatomical Region Laterality Modality Radiographic Tricia ging 10/19/2024 12:4 2 PM EDT Narrative 10/19/2024 1:56 PM EDT [address] [address] XRay Report Signed Patient: Gaby Arteaga MR#: [id number] 46 : 1965 Acct:[id number] Age/Sex: 59 / F ADM Date: 10/19/24 Loc: HO.ED Attending Dr: Ordering Physician: Generic ED Physician Date of Service: 10/19/24 Procedure(s): XR KUB Accession Number(s): [id number] cc: Generic ED Physician; ALONA CRANE NP [...] 10/19/2024 01:52 PM EDT RP Dictated By: Rcihie Henderson MD Signed By: <Electronically signed by Richie Henderson MD in OV> 10/19/24 1352 DD/ 1242 TD/TT: 10/19/24 1344 Flooring Salesperson: Procedure Note Donotuseinterpreter, Alexi - 10/19/[address] [address] XRay Report Signed Patient: Wyatt Arteaga#: [id number] 46 : 1965Acct:[id number] Age/Sex: 59 / FADM Date: 10/19/24 Loc: .ED Attending Dr: Ordering Physician: Generic ED Physician Date of Service: 10/19/24 Procedure(s): XR KUB Accession Number(s): [id number] cc: Generic ED Physician; ALONA CRANE NP [...] 10/19/24 1352 DD/ 1242 TD/TT: 10/19/24 1344 Flooring Salesperson: us [facility] External Provider IMG XR PROCEDURES Final Result * Hemoglobin A1c (07/21/2024 1:20 PM EDT) Hemoglobin A1c 5.8 <6.0 % [facility] Comment:Hemoglobin A1C Refer ence Range Adults: 4.8 - 6.0 % Non diabetic: < 6.0 % Goal: < 7.0 %Additional Action Suggested: > 8.0 %Note: Hemoglobin A1c results are invalid for patients with abnormal amounts of HbF. Blood transfusions may impact the HbA1c concentration in the patient sample. Estimated Average Glucose 120 mg/dL [facility] Comment:eAG = Estimated ave rage glucose which is %A1C expressed asaverage glucose, using the formula of the D0D-LmdjzvoCvsvzjx Glucose study (ADAG), Diabetes Care, Vol.31,#8,Oct. 2007 07/21/2024 1:20 PM EDT 07/21/2024 1:20 PM EDT Alona MOSCOSO LAB BLOOD ORDERABLES Final Resul t Performing Organization Address [facility] Co de Phone Number [facility] [address] [place] [phone] * Hepatitis C Antibody with Reflex to HCV, RNA, Quantitative, Real-Time PCR (07/04/2024 2:31 PM EDT) Hepatitis C Antibody Nonreactive Nonreactive [facility] Comment:Antibodies to HCV no t detected; does not exclude early acuteHCV infection. 07/04/2024 2:31 PM EDT 07/04/2024 4:02 PM EDT Jacoby Donald MD LAB BLOOD ORDERABLES Final Resul t Performing Organization Address [facility] Co de Phone Number [facility] [address] [place] [phone] * HIV-1/2 Antigen and Antibodies, Fourth Generation, with Reflexes (07/04/2024 2:31 PM EDT) HIV AB/AG Nonreactive Nonreactive [facility] Comment:HIV-1 p24 Ag and/or HIV-1/HIV-2 Ab not detected.A test result that is nonreactive does not exclude thepossibility of exposure to or infection with HIV-1 and/orHIV-2. Nonreactive results in this assay for individualswith prior exposure to HIV-1 and/or HIV-2 may be due toantigen and antibody levels that are below the limit ofdetection of this assay.[employer] HIV Ag/Ab Combo assay result andsupplemental assay results should be interpreted inconjunction with the patient's clinical presentation,history and other laboratory results. If the results areinconsistent with clinical evidence, additional testing issuggested to confirm the result. 07/04/2024 2:31 PM EDT 07/04/2024 4:02 PM EDT us Jacoby Donald MD LAB BLOOD ORDERABLES Final Resul t [facility] [address] [place] [phone] * BI Mammogram Screening Tomosynthesis Bilateral (06/17/2024 2:15 PM EDT) Anatomical Region Laterality Modality Breast Bilateral Mammography 06/17/2024 2:15 PM EDT Narrative 06/25/2024 3:10 PM EDT [address] [place] [address] Mammography Report Signed Patient: Gaby Arteaga MR#: [id number] 46 : 1965 Acct:[id number] Age/Sex: 58 / F ADM Date: 06/17/24 Loc: YUSUF.MAMMO Attending Dr: Alona Crane NP Ordering Physician: ALONA CRANE NP Results: 1Negative Date of Service: 06/17/24 Follow Up: 1 Year From Orig [facility] Mammogram Procedure(s): MM tomosynthesis screening BI Accession Number(s): [id number] cc: ALONA CRANE NP EXAMINATION: MM SCREENING [...] Carleen Cedeno DO 06/25/2024 03:06 PM EDT RP Dictated By: Carleen Cedeno DO Signed By: <Electronically signed by Carleen Cedeno DO in OV> 06/25/24 1506 DD/ 1415 TD/TT: 06/17/24 1440 Flooring Salesperson: Procedure Note Donotuseinterpreter, Image - 06/25/2024 [facility] [address] [place] [address] Mammography Report Signed Patient: Wyatt Arteaga#: [id number] 46 : 1965Acct:[id number] Age/Sex: 58 / FADM Date: 06/17/24 Loc: YUSUF.MAMMO Attending Dr: Alona Crane NP Ordering Physician: ALONA CRANE NPResults: 1Negative Date of Service: 06/17/24Follow Up: 1 Year From Orig inal Mammogram Procedure(s): MM tomosynthesis screening BI Accession Number(s): [id number] cc: ALONA CRANE NP EXAMINATION: MM SCREENING [...] 06/25/24 1506 DD/ 1415 TD/TT: 06/17/24 1440 Flooring Salesperson: [facility] BI PROCEDURES Edited Result - Final * (ABNORMAL) Cologuard?? colon cancer screening (05/27/2024 2:49 PM EST) Cologuard Result Positive( A) Negative 06/04/2024 5:36 PM EDT [facility] (CLIA #:[id number]) Comment: POSITIVE TEST RESULT. A positive Cologuard [...] (Roverto Camargo al, N Engl J Med 2014;370(14):0428-5194.) Cologuard may produce a false negative or false positive result (no colorectal cancer or precancerous polyp present at colonoscopy follow up). A negative Cologuard test result does not guarantee the absence of CRC or advanced adenoma (pre-cancer). The current Cologuard screening interval is every 3 years. ([place] [employer] and U.S. Multi-Society Task Force). Cologuard performance data in a 10,000 patient pivotal study using colonoscopy as the reference method can be accessed at the following location: www.ValetAnywhere/results. Additional description of the Cologuard test process, warnings and precautions can be found at www.Group [employer] Recordsrd.com. Stool specimen (specimen) 05/27/2024 2:49 PM EST 05/29/2024 11:29 PM EDT [facility] MOLECULAR DIAGNOSTICS ORDERA BLES Final Result [facility] (CLIA #:[id number]) [place] [address], * (ABNORMAL) LIPID PANEL, STANDARD (04/03/2020 2:27 [...] factors. LDL-C is now calculated using the Jeimy calculation, which is a validated novel method providing better accuracy than the Friedewald equation in the estimation of LDL-C. Faustino MCLAIN et al. NICHOLAS. 2013;310(19): 2473-3832 (http://education.[employer].Wannyi/faq/XWJ338) Non-HDL Cholesterol 157(H) <130 mg/dL (calc) [facility] Comment: For patients with diabetes plus 1 major ASCVD risk factor, treating to a non-HDL-C goal of <100 mg/dL (LDL-C of <70 mg/dL) is considered a therapeutic option. Triglycerides 165(H) <150 mg/dL [facility] 04/03/2020 2:27 PM EST us Syed Hardy MD LAB BLOOD ORDERABLES Final Resul t [facility] [address] from Last 3 Months or Most Recently Relevant to Health Maintenance Insurance [facility] C3 Care Teams Band Aid Machine Operator Relationship Specialty Start Date End Date Alona Crane ANP [address] [place] [address] PCP - General Family Medicine 02/11/22 Aldo Araiza, SIRISHA [address] [place] [address] Registered Nurse Family Medicine 10/20/24 Claudine Arnold 10/20/24 Lilian Varghese Reticle PrinterPyrotechnic Mixer 07/02/23
--- OUTSIDE RECORDS SUMMARY | 2024-12-30 08:34 | XMS_ITS | Encounter Summary ---
Author Organization [employer] Address [address] [facility] 7t [place] [address] Care Team Providers Care Vertical Lathe Operator Name Role Phone Juani Sosa Primary Care Provider [phone] Aldo Araiza RN Unavailable [phone] Claudine Arnold Unavailable Reason for Visit * Reason Onset Date Comments ER Follow-up 11/10/2023 Encounter Details Date Type Department Care Team ([facility] st Contact Info) Description 11/10/2023 Telephone [facility] [address] [place], [place] [phone] Juani Sosa ANP [address] [place], [place] [phone] ER Follow-up Social History Tobacco Use Types [...] ED visit on : Date: 11/09/23 Hospital: [facility] Seen for: Chest Pain, breathing trouble, and Leg swelling. Patient advised will forward to team nurse for follow up documented in this encounter Plan of Treatment Upcoming Encounters Date Type Department Care Team (Late st Contact Info) Description 01/09/2025 1:00 PM EDT Clinical Support [facility] [address] [place] [address] Nalini Blum, RN 01/11/2025 2:30 PM EDT Office Visit [facility] [address] [place] [address] Juani Sosa, BLANKA [address] [place] [address] 01/18/2025 3:45 PM EDT Procedure Visit [facility] [address] [place] [address] Chelsey Mckenzie CNM [address] [place] [address] documented as of this encounter Visit Diagnoses Not on filedocumented in this encounter Additional Health Concerns Assessment Noted Time PHQ-9 Depression Total Score: 9 10/06/19 24 11:29 AM EDT documented as of this encounter Care Teams Vertical Lathe Operator Relationship Specialty Start Date End Date Juani Sosa ANP [address] [place] [address] PCP - General Family Medicine 02/11/22 Aldo Araiza, SIRISHA [address] [place] [address] Registered Nurse Family Medicine 10/20/24 Claudine Arnold 10/20/24 Lilian Varghese Linoleum Tile Floor LayerInvestor Relations Manager 07/02/23 documented as of this encounter
--- OUTSIDE RECORDS SUMMARY | 2024-12-30 08:34 | XMS_ITS | Encounter Summary ---
Author Organization [employer] Address [address] [place] [address] Care Team Providers Care Caul Puller Name Role Phone Ian Juani MOSCOSO Primary Care Provider [phone] Aldo Araiza RN Unavailable [phone] Claudine Arnold Unavailable Reason for Visit * Reason Onset Date Comments Med Refill Appointment 09/10/2023 - [facility] Encounter Details Date Type Department Care Team (Late st Contact Info) Description 09/10/2023 Refill [facility] [address] [place] [address] Rafael Shahid FNP Social History Tobacco Use [...] prescriber. Abhi-schedule an apt for 10/06/23 as [id number] documented in this encounter Plan of Treatment Upcoming Encounters Date Type Department Care Team (Late st Contact Info) Description 01/09/2025 1:00 PM EDT Clinical Support [facility] [address] [place] [address] Nalini Blum, SIRISHA 01/11/2025 2:30 PM EDT Office Visit [facility] [address] [place] [address] Juani Sosa ANP [address] [place] [address] 01/18/2025 3:45 PM EDT Procedure Visit [facility] [address] [place] [address] Chelsey Mckenzie CNM 230 [place] [address] documented as of this encounter Visit Diagnoses Not on filedocumented in this encounter Additional Health Concerns Assessment Noted Time PHQ-9 Depression Total Score: 10 024 10:06 AM EST documented as of this encounter Care Teams Caul Puller Relationship Specialty Start Date End Date Juani Sosa ANP 230 [place] [address] PCP - General Family Medicine 02/11/22 Aldo Araiza, SIRISHA [address] [place] [address] Registered Nurse Family Medicine 10/20/24 Claudine Arnold 10/20/24 Lilian Varghese Die MaintenanceShredded Filler Cigar Maker Machine 07/02/23 documented as of this encounter
--- OUTSIDE RECORDS SUMMARY | 2024-12-30 08:34 | XMS_ITS | Encounter Summary ---
Author Organization [employer] Address [address] [facility] [address] 7t [place] [address] Care Team Providers Care Bridge Gang Worker Name Role Phone Juani Sosa Primary Care Provider [phone] Aldo Araiza RN Unavailable [phone] Claudine Arnold Unavailable Reason for Visit * Reason Comments Med Change Request Encounter Details Date Type Department Care Team ([facility] Contact Info) Description 01/13/2023 Refill [facility] 230 [place], [place] [phone] Jacoby Donald MD 230 [place], [place] [phone] Social History Tobacco Use Types Packs/Day Years [...] Description 01/09/2025 1:00 PM EDT Clinical Support [address] [address] Nalini Blum RN 01/11/2025 2:30 PM EDT Office Visit [address] [address] Juani Sosa ANP [address] [place] [address] 01/18/2025 3:45 PM EDT Procedure Visit [address] [address] Chelsey Mckenzie CNM [address] [place] [address] documented as of this encounter Visit Diagnoses Not on filedocumented in this encounter Additional Health Concerns Assessment Noted Time PHQ-9 Depression Total Score: 16 023 9:58 AM EDT documented as of this encounter Care Teams Bridge Gang Worker Relationship Specialty Start Date End Date Juani Sosa ANP [address] [place] [address] PCP - General Family Medicine 02/11/22 Aldo Araiza RN [address] [place] [address] Registered Nurse Family Medicine 10/20/24 Claudine Arnold 10/20/24 Lilian Varghese Hiv NurseBarge Worker 07/02/23 documented as of this encounter
--- OUTSIDE RECORDS SUMMARY | 2024-12-30 08:34 | XMS_ITS | Encounter Summary ---
Author Organization [employer] Address [address] [facility] 7t [place] [address] Care Team Providers Care Servicenow Administrator Developer Name Role Phone Juani Sosa Primary Care Provider [phone] Aldo Araiza RN Unavailable [phone] Claudine Arnold Unavailable Reason for Visit * Reason Onset Date Comments Pre op 04/13/2023 Encounter Details Date Type Department Care Team ([facility] st Contact Info) Description 04/13/2023 Telephone [facility] [address] [place], [place] [phone] Juani Sosa ANP 230 [place], [place] [phone] Pre op Social History Tobacco Use Types [...] Surgeon's name: Dr Tim Mcdermott [facility] [place]geon's office number: [phone] Surgeon's office fax number: [phone] Contact name (person you spoke with): gNoc from [facility] ortho office Last office note from surgeon requested: no documented in this encounter Plan of Treatment Upcoming Encounters Date Type Department Care Team (Late st Contact Info) Description 01/09/2025 1:00 PM EDT Clinical Support [facility] [address] [place] [address] Nalini Blum, SIRISHA 01/11/2025 2:30 PM EDT Office Visit [facility] [address] [place] [address] Juani Sosa ANP [address] [place] [address] 01/18/2025 3:45 PM EDT Procedure Visit [facility] [address] [place], [place] [phone] Chelsey Mckenzie CNM [address] [place], [place] [phone] documented as of this encounter Visit Diagnoses Not on filedocumented in this encounter Additional Health Concerns Assessment Noted Time PHQ-9 Depression Total Score: 14 024 10:44 AM EST documented as of this encounter Care Teams Servicenow Administrator Developer Relationship Specialty Start Date End Date Juani Sosa ANP [address] [place], [place] [phone] PCP - General Family Medicine 02/11/22 Aldo Araiza, SIRISHA 505 [place] [address] Registered Nurse Family Medicine 10/20/24 Claudine Arnold 10/20/24 Lilian Varghese Liquefied Petroleum GasfitterChild Development Associate Teacher 07/02/23 documented as of this encounter
--- OUTSIDE RECORDS SUMMARY | 2024-12-30 08:34 | XMS_ITS | Encounter Summary ---
Author Organization [employer] Address [address] [place] [address] 7t [place] [address] Care Team Providers Care Flash Developer Name Role Phone Juani Sosa Primary Care Provider [phone] Aldo Araiza RN Unavailable Claudine Arnold Unavailable Reason for Visit * Reason Comments Care Management C3CM- f/u call Encounter Details Date Type Department Care Team ([facility] st Contact Info) Description 12/27/2024 Patient Outreach [facility] [address] [place], [place] [phone] Juani Sosa ANP 230 [place] [address] Care Management (C3CM- f/u call) Social History Tobacco Use Types Packs/Day Years [...] as of this encounter Progress Notes * Aldo Araiza RN - 12/27/2024 11:22 AM EDT CM Aldo Araiza RN placed outbound call to patient. Patient's name, and address confirmed. Patient states is doing well with no recent illnesses or emergency room visits. Patient states she is aware of her upcoming visits with Ortho and Cardiology. Patient confirms having transportation and denies any barriers to attending. Per patient, BP has been well controlled. She reports compliance tomedication regimen and denies any concerns or need for refills at this time. No further questions or concerns. CM reinforced direct contact information for any additional questions or concerns. Education provided on [facility] Ur[facility] located in [facility]. Patient provided with after-hours line for [facility], , which offer night time triage service and option to transfer to division operations manager provider if needed. Patient verbalizes understanding, and able to r epeat back to chart writer. A follow up call will be placed within 10 days, patient agrees with plan. documented in this encounter Plan of Treatment Upcoming Encounters Date Type Department Care Team (Late st Contact Info) Description 01/09/2025 1:00 PM EDT Clinical Support [address] [address] Nalini Blum RN 01/11/2025 2:30 PM EDT Office Visit [address] [address] Juani Sosa ANP [address] [place] [address] 01/18/2025 3:45 PM EDT Procedure Visit [address] [address] Chelsey Mckenzie CNM [address] [place] [address] documented as of this encounter Visit Diagnoses Not on filedocumented in this encounter Additional Health Concerns Assessment Noted Time PHQ-9 Depression Total Score: 15 025 1:15 PM EDT documented as of this encounter Care Teams Flash Developer Relationship Specialty Start Date End Date Juani Sosa ANP [address] [place] [address] PCP - General Family Medicine 02/11/22 Aldo Araiza, SIRISHA [address] [place] [address] Registered Nurse Family Medicine 10/20/24 Claudine Arnold 10/20/24 Lilian Varghese Utility BaggerSkein Inspector 07/02/23 documented as of this encounter
== END 2024-12-29 08:26 | disposition home or self-care (01) ==
LOC: HO.HOSX 08:25
PROVIDERS: Visit Provider Orthopaedic Surgery
DX: Z01.810 Encounter for preprocedural cardiovascular examination (principal); I44.7 Left bundle-branch block, unspecified; I10 Essential (primary) hypertension; M25.561 Pain in right knee; M25.562 Pain in left knee; Z79.82 Long term (current) use of aspirin; Z79.899 Other long term (current) drug therapy
CPT/HCPCS: 73562; 93005; 99212

== ENCOUNTER 2024-12-29 09:38 | Outpatient (AMB) | payer MEDICAID, SELFPAY ==
--- NOTE | 2024-12-29 09:46 | A.OFFVIS_ITS ---
Vital Signs 12/29/24 09:47 Height 5 ft 4 in Weight 240 lb BMI 41.2 Intake Visit Reasons: New prob- Left knee pain, Right knee pain Intake Note: Gaby is a 59 year old woman who presents today in office with complaints of left knee pain. States pain started to increase about 5-6 months, no injury she can recall. Pain is mainly on her anterior aspect of knee. She has pain with prolong sitting, standing , walking and laying down. Patient has tried using topical pain cream but relief last only a few minutes. No hx of injections. Patient would like to discuss injection today. The patient also has progressively worsening right knee pain. She is due to undergo right total knee replacement surgery next month. Allergies lisinopril Allergy (Severe, Verified 12/29/24 09:50) Angioedema hydroxyzine (HYDROXYZINE) Adverse Reaction (Intermediate, Verified 12/29/24 09:50) reports redness and swelling Medication List - Last Reconciled 12/29/24 by Tim Mcdermott MD acetaminophen 1,000 mg (2 x 500 mg) PO Q8H PRN albuterol sulfate 90 mcg/actuation (ProAir HFA) 2 puffs inhalation Q4-6H PRN aspirin 81 mg PO DAILY buprenorphine-naloxone 8-2 mg (Suboxone) 10 mg sublingual BID cetirizine 10 mg PO DAILY clonidine HCl 0.1 mg PO BID hydrochlorothiazide 12.5 mg PO DAILY ibuprofen 400 mg PO Q6H PRN levofloxacin 500 mg PO DAILY 5 days metoprolol succinate ER (Toprol XL) 25 mg PO DAILY metronidazole 500 mg PO TID 5 days naloxone 4 mg/actuation (Narcan) 0 sprays intranasal prednisone 40 mg (2 x 20 mg) PO DAILY 5 days walker Folding front wheeled walker [facility] Medical History Left against medical advice Angioedema History of fatty infiltration of liver History of alcohol dependence History of heroin use Chronic knee pain Chronic back pain History of seizure History of panic disorder History of opioid abuse Depression HTN (hypertension) History of left bundle branch block (LBBB) Migraine Anxiety Asthma Surgical History Hx of exploratory laparotomy Hx of colonoscopy Family History Mother Heart disease Arthritis HTN (hypertension) Social History (Updated 12/29/24 @ 09:51 by KAMERON Muller) Household Members: None Housing: House Do you presently have visiting nurse or other home services: No Alcohol intake: current Alcohol intake frequency: does not drink Patient Tobacco Use Status: Former Tobacco user Years Smoked: 10 +/- Substance Use Type: Inhalants service: No Current occupational status: unemployed and disabled Current occupation: rt hand Physical Exam Vital Signs: BMI result Body Mass Index 41.2 Extrem Other: Left knee examination shows a minimal effusion, palpable crepitus with range of motion, pain with range of motion, no instability Results Reviewed Results Reviewed: X-rays of the patient's left knee taken today show mild to moderate diffuse joint space narrowing, no acute bony abnormalities Assessment & Plan Assessment & Plan (1) Right knee pain: Code(s): M25.561 - Pain in right knee Category: Medical Plan Ms. Arteaga presents with left knee pain due to early degenerative joint disease. I had a lengthy discussion with the patient regarding the treatment options. The patient does have right total knee replacement surgery scheduled for next month. Thus, we will hold off on any type of injections until following her surgery. The patient will follow-up as instructed. Feel free to call me at any time should questions regarding her orthopedic management arise. I spent 21 minutes in reviewing the patient's records and imaging studies, seeing the patient and documenting in the medical record. Orders: Orders XR knee LT 3V Today M25.562 - Pain in left knee Coding Level of Care Code Est Pt Level 3 (88247) Complex EM visit Add On G2211 Diagnoses Right knee pain M25.561
[2024-12-29 09:47] VITALS: BMI 41.2
== END 2024-12-29 10:16 | disposition home or self-care (01) ==
LOC: HO.HOS 09:39
PROVIDERS: PCP Nurse Practitioner Primary Care; Visit Provider Orthopaedic Surgery
DX: M25.561 Pain in right knee (principal)
CPT/HCPCS: 99213

== ENCOUNTER → 2024-12-29 09:39 | Outpatient (BNV) | payer MEDICAID, SELFPAY | PROVIDERS: Visit Provider Radiology Diagnostic Ultrasound | DX: M17.12 Unilateral primary osteoarthritis, left knee (principal); M25.462 Effusion, left knee | CPT/HCPCS: 73562 ==

== ENCOUNTER 2024-12-29 14:32 | Outpatient (AMB) | payer MEDICAID, SELFPAY ==
[2024-12-29 14:42] VITALS: BP 110/52; PULSE 81; BMI 39.4
--- NOTE | 2024-12-29 14:42 | A.OFFVIS_ITS ---
Vital Signs 12/29/24 14:42 Height 5 ft 4 in Weight 229 lb 11.547 oz BMI 39.4 BP 110/52 L Blood Pressure Location Lt brachial Position Sitting Pulse 81 Pulse Source Monitor Intake Visit Reasons: Pre-op clearance Supervisor Telephone Information Required: No Accompanied by: Self / Same As Patient Allergies lisinopril Allergy (Severe, Verified 12/29/24 14:46) Angioedema hydroxyzine (HYDROXYZINE) Adverse Reaction (Intermediate, Verified 12/29/24 14:46) reports redness and swelling Medication List - Last Reconciled 12/29/24 by Yelena López, MARKET RESEARCH COORDINATOR-C acetaminophen 1,000 mg (2 x 500 mg) PO Q8H PRN albuterol sulfate 90 mcg/actuation (ProAir HFA) 2 puffs inhalation Q4-6H PRN aspirin 81 mg PO DAILY buprenorphine-naloxone 8-2 mg (Suboxone) 10 mg sublingual BID cetirizine 10 mg PO DAILY clonidine HCl 0.1 mg PO BID hydrochlorothiazide 12.5 mg PO DAILY levofloxacin 500 mg PO DAILY 5 days metoprolol succinate ER (Toprol XL) 25 mg PO DAILY metronidazole 500 mg PO TID 5 days naloxone 4 mg/actuation (Narcan) 0 sprays intranasal prednisone 40 mg (2 x 20 mg) PO DAILY 5 days walker Folding front wheeled walker HPI HPI Pre-op clearance: Details: Gaby is a 59-year-old female with past medical history of hypertension, prior smoking, prior heroin use, now on Suboxone, left bundle branch block, prior reports of chest discomfort with normal cardiac catheterization who presents for follow-up and preop cardiovascular clearance. Today she reports that she is scheduled for a right total knee replacement in January. With the exception of knee pain she has been doing good. She has not been getting chest discomfort like she had in the past. She does get shortness of breath with exertion which is not new. She does not feel this is changing. No concerning heart palpitations, no lightheadedness, presyncope, syncope, falls. She reports being sedentary due to bilateral knee discomfort. She reports compliance with her medications. [facility] Medical History Left against medical advice Angioedema History of fatty infiltration of liver History of alcohol dependence History of heroin use Chronic knee pain Chronic back pain History of seizure History of panic disorder History of opioid abuse Depression HTN (hypertension) History of left bundle branch block (LBBB) Migraine Anxiety Asthma Surgical History Hx of exploratory laparotomy Hx of colonoscopy Family History Mother Heart disease Arthritis HTN (hypertension) Social History Household Members: None Housing: House Do you presently have visiting nurse or other home services: No Alcohol intake: current Alcohol intake frequency: does not drink Patient Tobacco Use Status: Former Tobacco user Years Smoked: 10 +/- Substance Use Type: Inhalants service: No Current occupational status: unemployed and disabled Current occupation: rt hand Review of Systems Const All systems reviewed & are unremarkable except as noted in HPI and below Denies daytime sleepiness, Denies difficulty sleeping, Denies snoring, Denies stops breathing during sleep and Denies weakness Card Denies chest pain, Denies rapid heart rate, Denies irregular heart rhythm, Denies claudication, Denies leg edema, Denies lightheadedness, Denies palpitations, Denies dyspnea, Denies dyspnea on exertion, Denies orthopnea, Denies paroxysmal nocturnal dyspnea and Denies slow heart rate Resp Denies cough, Denies dyspnea, Denies dyspnea on exertion and Denies snoring GI Reports no additional complaints, Denies hematochezia, Denies change in stool character and Denies dyspepsia Musc Details: using walker, righ knee pain Reports abnormal gait, Denies muscle weakness and Denies numbness Neuro Reports abnormal gait, Denies numbness and Denies weakness Endo Denies palpitations Physical Exam Vital Signs: BMI result Body Mass Index 39.4 Const General: cooperative, healthy appearing, comfortable and no acute distress Orientation/consciousness: patient oriented x3 Neck Neck: Yes normal visual inspection Resp Effort & Inspection: normal respiratory effort Auscultation: clear to auscultation bilaterally, no crackles, no rales, no rhonchi and no wheezes Cardio Rate: regular rate Rhythm: regular rhythm Heart sounds: S1 normal heart sound present, S2 normal heart sound present, no gallops, no murmurs and no rubs Neuro General: patient oriented x3 Extrem General: Yes normal to inspection and No no pedal edema Psych Appearance: grossly normal Mental Status: mental status grossly normal Speech and movement: Normal speech and movement present Office Procedures EKG Details: Today, read by me, normal sinus rhythm, can not exclude prior anterior infarct, rate 81, QTC 448 millisecond - left bundle branch block not present on this EKG, QRS 84 millisecond [id number], Complete Assessment & Plan Assessment & Plan (1) LBBB (left bundle branch block): Code(s): I44.7 - Left bundle-branch block, unspecified Category: Medical Plan: Left bundle branch block noted on prior EKGs. EKG today is showing normal sinus rhythm with no left bundle branch block. This finding is likely intermittent on her. In some cases left bundle branch block can lead to cardiomyopathy. Last echo 05/19/2023 showed EF 64%. Will recheck echo prior to next visit in August. Cardiology follow-up as planned August 2025. (2) Chest pain: Code(s): R07.9 - Chest pain, unspecified Category: Medical Qualifiers: Chest pain type: other chest pain Qualified Code(s): R07.89 - Other chest pain Plan: Prior Reports of chest discomfort with exertion requiring ER evaluations and ruled out for ACS. Her EKGs had shown left bundle branch block, which makes them nondiagnostic for ischemia. An echocardiogram was done on 04/29/2023 showing EF 64%, no valve abnormalities, no regional wall motion abnormalities. A pharmacological nuclear stress test done 05/14/2023 showed reversible anterior apical perfusion defect which could indicate mild ischemia however artifact not excluded. She then underwent cardiac catheterization on 08/20/2023 showing normal coronary arteries. She is now doing well with no recurrent chest di scomfort. Continue with risk factor modification. (3) HTN (hypertension): Code(s): I10 - Essential (primary) hypertension Category: Medical Plan: Blood pressure goal less than 130/80. Well controlled at present. No med changes made. Continue hydrochlorothiazide and metoprolol. (4) Preop cardiovascular exam: Code(s): Z01.810 - Encounter for preprocedural cardiovascular examination Category: Medical Plan: She is preop for right total knee replacement. She can proceed with low cardiac risk. She has known intermittent left bundle branch block. Call/consult Cardiology if needed. Plan . Time spent on chart review, documentation, interview and assessment Coding Level of Care Code Est Pt Level 3 (04612) Complex EM visit Add On G2211 Diagnoses LBBB (left bundle branch block) I44.7 Chest pain R07.89 Chest pain type: other chest pain HTN (hypertension) I10 Preop cardiovascular exam Z01.810 CPT Codes EKG - CPT: 61785-[id number], Complete ([id number]) Time Spent (min) 24
== END 2024-12-29 15:27 | disposition home or self-care (01) ==
LOC: HO.HCS 14:33
PROVIDERS: PCP Nurse Practitioner Primary Care; Visit Provider Nurse Practitioner Family
DX: I44.7 Left bundle-branch block, unspecified (principal); R07.89 Other chest pain; I10 Essential (primary) hypertension; Z01.810 Encounter for preprocedural cardiovascular examination
CPT/HCPCS: 93010; 99213

== ENCOUNTER 2024-12-30 21:12 | Emergency (ER) | payer MEDICAID, SELFPAY ==
--- NOTE | 2024-12-30 | ECG_ITS ---
Test Reason : CP Blood Pressure : */* mmHG Vent. Rate : 84 BPM Atrial Rate : 84 BPM P-R Int : 126 ms QRS Dur : 94 ms QT Int : 382 ms P-R-T Axes : 65 20 27 degrees QTcB Int : 451 ms Normal sinus rhythm with sinus arrhythmia Normal ECG When compared with ECG of 16-Aug-2024 23:31, Left bundle branch block is no longer Present Referred By: Generic ED Physician Electronically Signed By: KELLY VIGIL MD
--- NOTE | ~2024-12-30 | CT_ITS ---
CLINICAL HISTORY: Bilateral flank pain CT abdomen and pelvis without contrast Comparison: CT/SR - CT ABDOMEN PELVIS W IV CON - 08/17/24 02:06 EDT Findings: LIMITED CHEST: Lung bases are clear. LIVER: No focal liver lesion. BILIARY: No gallbladder wall thickening, radiopaque stone, or ductal dilatation. PANCREAS: No mass or ductal dilatation. Diffuse parenchymal atrophy. SPLEEN: No splenomegaly. KIDNEYS: Left inferior pole 2 mm nonobstructive nephrolithiasis. No hydronephrosis. Right kidney is unremarkable. ADRENALS: No nodule. VASCULAR: No aneurysm. RETROPERITONEUM: No lymphadenopathy or mass. BOWEL/MESENTERY: No evidence of obstruction. No free fluid or air. ABDOMINAL WALL: No mass or significant abnormality. URINARY BLADDER: No focal wall thickening. PELVIC NODES: No pelvic lymphadenopathy. PELVIC ORGANS: Normal for age. BONES: No acute fracture. OTHER: Negative. IMPRESSION: Left inferior pole nonobstructive renal nephrolithiasis measuring 2 mm. No hydronephrosis. This document has been electronically signed by: Casandra Melgar MD on 12/30/2024 22:35:07
[2024-12-30 21:14] VITALS: BP 120/82; BP 178/97; PULSE 76; PULSE 94; RESP 17; TEMP 36.7; O2SAT 98; BMI 41.5
--- OUTSIDE RECORDS SUMMARY | 2024-12-30 21:34 | XMS_ITS | Encounter Summary ---
Author Organization [employer] Address [address] [facility] [address] 7t [place] [address] Care Team Providers Care Drop Machine Operator Name Role Phone Sosa Juani MOSCOSO Primary Care Provider [phone] Aldo Araiza RN Unavailable [phone] Claudine Arnold Unavailable Encounter Details Date Type Department Care Team (Late st Contact Info) Description 04/09/2023 Orders Only [facility] [address] [place], [place] [phone] Nalini Blum, SIRISHA Uncomplicated opioid dependence (CMS/HCC) [...] overeating Several days 04/09/2023 10:44 AM Keyona Vaqsuez [place] Feeling bad about yourself - or [...] Description 01/09/2025 1:00 PM EDT Clinical Support [address] [address] Nalini Blum RN 01/11/2025 2:30 PM EDT Office Visit [facility] [address] [place], [place] [phone] Juani Sosa, ANP [address] [place], [place] [phone] 01/18/2025 3:45 PM EDT Procedure Visit [facility] [address] [place], [place] [phone] Chelsey Mckenzie, CNM [address] [place], [place] [phone] Scheduled Orders Name Type Priority Associated Diagnoses [...] documented as of this encounter Care Teams Drop Machine Operator Relationship Specialty Start Date End Date Juani Sosa ANP [address] [place] [address] PCP - General Family Medicine 02/11/22 Aldo Araiza RN [address] [place] [address] Registered Nurse Family Medicine 10/20/24 Claudine Arnold 10/20/24 Lilian Varghese Test TechnicianSupervisor Covering And Lining 07/02/23 documented as of this encounter
--- OUTSIDE RECORDS SUMMARY | 2024-12-30 21:34 | XMS_ITS ---
Author Organization [employer] Address [address] [place] [address] 7t [place] [address] Care Team Providers Care Manager Internet Retails Sales Name Role Phone Juani Sosa Primary Care Provider [phone] Aldo Araiza RN Unavailable [phone] Claudine Arnold Unavailable CM Complex Status:Enrolled (Active) Start date:10/20/2024 Enrollment date:11/02/2024 Enrollment reason:ADT Feed Overview ED- Pt went to [facility] on 10/19/24. Case Team Name Relationship Phone Aldo Araiza RN(Responsible Staff) Registered Nurse [phone] Continued Care and Services Coordination
--- OUTSIDE RECORDS SUMMARY | 2024-12-30 21:34 | XMS_ITS | Encounter Summary ---
Author Organization [employer] Address [address] [place] [address] Care Team Providers Care Software Support Representative Name Role Phone Ian Juani MOSCOSO Primary Care Provider [phone] Aldo Araiza RN Unavailable [phone] Claudine Arnold Unavailable Reason for Visit * Reason Onset Date Comments Med Refill Appointment 09/10/2023 - [facility] Encounter Details Date Type Department Care Team (Late st Contact Info) Description 09/10/2023 Refill [facility] [address] [place] [address] Rafael Shahid FNP Social History Tobacco Use [...] prescriber. Abhi-schedule an apt for 10/06/23 as [id number] documented in this encounter Plan of Treatment Upcoming Encounters Date Type Department Care Team (Late st Contact Info) Description 01/09/2025 1:00 PM EDT Clinical Support [facility] [address] [place] [address] Nalini Blum, SIRISHA 01/11/2025 2:30 PM EDT Office Visit [facility] [address] [place] [address] Juani Sosa ANP 230 [place] [address] 01/18/2025 3:45 PM EDT Procedure Visit [facility] [address] [place] [address] Chelsey Mckenzie CNM 230 [place] [address] documented as of this encounter Visit Diagnoses Not on filedocumented in this encounter Additional Health Concerns Assessment Noted Time PHQ-9 Depression Total Score: 10 024 10:06 AM EST documented as of this encounter Care Teams Software Support Representative Relationship Specialty Start Date End Date Juani Sosa ANP [address] [place] [address] PCP - General Family Medicine 02/11/22 Aldo Araiza, SIRISHA 505 [place] [address] Registered Nurse Family Medicine 10/20/24 Claudine Arnold 10/20/24 Lilian Varghese General Labor Forklift OperatorInclusion Paraeducator 07/02/23 documented as of this encounter
--- OUTSIDE RECORDS SUMMARY | 2024-12-30 21:34 | XMS_ITS | Clinical Summary ---
Author Organization [employer] Address [address] [facility] 7t [place] [address] Care Team Providers Care Hot Tamale Worker Name Role Phone Crane Alona MOSCOSO Primary Care Provider [phone] Aldo Araiza RN Unavailable [phone] Claudine Arnold Unavailable Allergies Active Allergy [...] filmIndications:O pioid type dependence, continuous (CMS/HCC) ([facility]) Place 1 Film under the tongue Once per day for 14 days. 14 Film 024 Active fluticasone (Flonase) 50 MCG/ACT nasal sprayIndications: Non-seasonal allergic rhinitis due to other allergic trigger [place] 2 sprays into each nostril every day [...] think is appropriate to refer to an litigation specialist she may require further testing. In [...] disease (COPD) ([facility]/HCC) ([facility]ERLY [facility]) 08/05/2023 History of left bundle branch block [...] retiring, pt will be referred to new [facility] Psychiatric provider. Pt is aware that appts will be via televisit and that provider will not be an [facility] employee. She gives permission to [...] and Suboxone. She will also F/U with [facility] clinician Nilson and the supports of the OBAT program. F/U with me in 2-3 weeks. She agrees with the plan. Opioid abuse 07/02/2022 05/17/2024 Encounters Date Type Department Care Team Description 12/28/2024 Patient Outreach [address] [address] Alona Crane ANP Care Coordination ([facility] f/u -appointment reminder) 12/27/2024 Patient Outreach [address] [address] Alona Crane ANP Care Management (C3- f/u call) 12/19/2024 2:30 PM EDT Telemedicine [address] [address] Jacoby Donald MD Uncomplicated opioid dependence (CMS/HCC) (Primary Dx) 12/19/2024 Travel 12/14/[address] [address] Nalini Blum RN Opioid use disorder 12/13/2024 Patient Outreach [address] [address] Alona Crane ANP Care Coordination (SDUT f/u) 12/13/2024 Patient Outreach [facility] MEDICINE [address] [place] [address] Alona Crane ANP Care Management (C3CM- f/u call) 12/05/2024 Patient Outreach [address] [address] Alona Crane ANP 12/01/2024 Patient Outreach [address] [address] Alona Crane ANP Care Management (C3CM- f/u call) 11/30/2024 4:00 PM EDT Office Visit [facility] [address] [place] [phone] Jacoby Donald MD Pharyngitis, unspecified etiology (Primary Dx); Moderate persistent asthma without complication; Diffuse abdominal pain; Viral URI; Acute bronchitis with chronic obstructive pulmonary disease (COPD) ([facility]) ([facility]) 11/30/2024 Travel 11/29/[address] [address] Alona Crane ANP Nurse Triage 11/28/2024 1:45 PM EDT Telemedicine [address] [address] Nalini Blum RN Uncomplicated opioid dependence ([facility]) 11/28/2024 Travel 11/28/[address] [address] Nalini Blum RN 11/28/2024 Patient Outreach [address] [address] Alona Crane ANP Care Coordination (SDOH) 11/18/2024 Patient Outreach [address] [address] Alona Crane ANP Care Coordination (SDOH) 11/17/2024 9:00 AM EDT Office Visit [address] [address] Alona Crane ANP Bilateral leg edema (Primary Dx); Essential hypertension; Rash of foot; Acute pain of left knee 11/17/2024 Travel 11/17/2024 Patient Outreach [address] [address] Alona Crane ANP Care Coordination (SDOH f/u) 11/16/2024 Patient Outreach [address] [address] Alona Crane ANP Care Management (C3CM- f/u call) 11/14/[address] [address] Alona Crane ANP Medication Question 11/14/[address] [address] Alona Crane ANP Prepop 11/14/[address] [address] Nalini Blum RN Opioid use disorder 11/07/2024 3:15 PM EDT Clinical Support [address] [address] Nalini Blum RN Uncomplicated opioid dependence (CMS/[facility]) (Primary Dx) 11/07/2024 Travel 11/03/2024 Patient Outreach [address] [address] Alona Crane ANP Care Coordination (PT1) 11/02/2024 Plan of Care Documentation [address] [address] 11/02/2024 Patient Outreach [address] [address] Alona Crane ANP Care Management (C3- initial assessment/ enrollment) 11/02/2024 Patient Outreach [address] [address] Alona Crane ANP Care Coordination (SDOH) 11/01/2024 Patient Outreach [address] [address] Alona Crane ANP Care Coordination (CM/CHW appt reminder) 10/31/[address] [address] Nalini Blum RN Opioid use disorder 10/31/[address] [address] Alona Crane ANP 10/28/2024 Telephone [facility] MED[facility]INE [address] [place] [address] Alona Crane ANP chart prep 10/24/2024 Patient Outreach [address] [address] Alona Crane ANP Care Coordination (CM/CHW outreach) 10/20/2024 Patient Outreach [address] [address] Alona Crane ANP Care Coordination (CHW chart review) 10/20/2024 Patient Outreach [address] [address] Alona Crane ANP Care Management (C3CM- chart review) 10/20/2024 Patient Outreach [address] [address] Alona Crane ANP 10/19/2024 Orders Only GENERIC EXTERNAL DATA DEPARTMENT Provider, Generic External Data 10/17/2024 1:15 PM EDT Clinical Support [address] [address] Nalini Blum RN Uncomplicated opioid dependence ([facility]) 10/17/2024 Travel 10/17/2024 Refill [facility]INE [address] [place] [address] Alona Crane ANP Moderate persistent asthma without complication 10/10/2024 Refill [facility] [address] [place] [address] Nalini Blum, RN Opioid use disorder 10/06/[address] [address] Nalini Blum, RN Opioid use disorder from [...] Description 01/09/2025 1:00 PM EDT Clinical Support [address] [address] Nalini Blum, RN 01/11/2025 2:30 PM EDT Office Visit [address] [address] Alona Crane ANP [address] [place] [address] 01/18/2025 3:45 PM EDT Procedure Visit [address] [address] Chelsey Mckenzie CNM [address] [place] [address] Health Maintenance Due Date Last Done Comments [...] Influenza B OSOM (11/30/2024 4:16 PM EDT) [facility] Rapid Influenza B Ag Negative Negative, Indeterminate QC Media Lot # [id number] Lot# Expiration Date Swab 11/30/2024 4:16 PM EDT us Jacoby Donald MD POINT OF CARE TEST ENTER/EDIT OR DERABLES Final Result * POCT Rapid Influenza A OSOM (11/30/2024 4:14 PM EDT) [facility] Rapid Influenza A Ag Negative Negative, Indeterminate QC Media Lot # [id number] Lot# Expiration Date Swab Nasopharyngeal structure / Unknown 11/30/2024 4:14 PM EDT us Jacoby Donald MD POINT OF CARE TEST ENTER/EDIT OR DERABLES Final Result * POCT Rapid Covid-19 REYNOSO ID NOW (11/30/2024 4:05 PM EDT) [facility] Coronavirus Antigen PCR Negative Negative, Indeterminate, None Detected, Invalid, Specimen unsatisfactory for evaluation, Weakly Positive, 2+ QC Media Lot # [id number] Lot# Expiration Date 026 Swab 11/30/2024 4:05 PM EDT us Jacoby Donald MD POINT OF CARE TEST ENTER/EDIT OR DERABLES Final Result * POCT Rapid Strep A OSOM (11/30/2024 4:03 PM EDT) Pathologist [facility] Rapid Strep A Screen Negative Negative, None Detected QC Media Lot # [id number] Lot# Expiration Date Swab 11/30/2024 4:03 PM EDT Jacoby Donald MD POINT OF CARE TEST ENTER/EDIT OR DERABLES Final Result * (ABNORMAL) POCT JENNY-14 Urine Drug Screen (11/07/2024 3:13 PM EDT) [facility] THC Negative Negative Cocaine Screen, Urine Negative [...] PM EDT Narrative 10/19/2024 3:37 PM EDT [place] [address] Ultrasound Report Signed Patient: Gaby Arteaga MR#: [id number] 46 : 1965 Acct:[id number] Age/Sex: 59 / F ADM Date: 10/19/24 Loc: HO.ED Attending Dr: Ordering Physician: German Wilkerson MD Date of Service: 10/19/24 Procedure(s): US abdomen limited Accession Number(s): [id number] cc: German Wilkerson MD; ALONA CRANE NP [...] 10/19/24 1534 DD/ 1505 TD/TT: 10/19/24 1513 Cyber Forensics Analyst: Procedure Note Donotuseinterpreter, Image - 10/19/[address] [address] Ultrasound Report Signed Patient: Wyatt Arteaga#: [id number] 46 : 1965Acct:[id number] Age/Sex: 59 / FADM Date: 10/19/24 Loc: HO.ED Attending Dr: Ordering Physician: German Wilkerson MD Date of Service: 10/19/24 Procedure(s): US abdomen limited Accession Number(s): [id number] cc: German Wilkerson MD; ALONA CRANE NP [...] 10/19/24 1534 DD/ 1505 TD/TT: 10/19/24 1513 Cyber Forensics Analyst: us [facility] External Provider IMG US PROCEDURES Final Result * (ABNORMAL) CBC auto differential (10/19/2024 1:35 PM EDT) White Blood Count 6.6 4.8 - 10.8 X10*3/uL [facility] Red Blood Count 4.39 4.20 - 5.50 X10*6/uL [facility] Hemoglobin 12.0 12.0 - 16.0 g/dl [facility] Hematocrit 36.3(L) 37.0 - 47.0 % [facility] Mean Corpuscular Volume 82.7 80.0 - 98.0 fL [facility] Mean Corpuscular Hemoglobin 27.3 27.0 - 33.0 pg [facility] Mean Corpuscular HGB Conc 33.1 31.0 - 35.0 g/dl [facility] Red Cell Distribution Width 14.3 11.0 - 16.0 % [facility] Platelet Count 323 160 - 400 X10*3/uL [facility] Mean Platelet Volume 8.7(L) 9.4 - 12.3 fL [facility] Neutrophils Percent Auto 49.4 45 - 73 % [facility] Imm Gran Pct Auto 0.3 0.0 - 0.4 % [facility] Lymphocytes Percent Auto 32.0 20 - 40 % [facility] Monocytes Percent Auto 7.6 2 - 11 % [facility] Eosinophils Percent Auto 9.8(H) 0 - 4 % [facility] Basophils Percent Auto 0.9 0 - 2 % [facility] NRBC Pct Auto 0.0 0.0 - 0.2 /100WBC [facility] Neutrophils Absolute Auto 3.3 2.0 - 8.3 x10*3/uL [facility] Imm Gran Abs Auto 0.02 0.00 - 0.03 X10*3/uL [facility] Lymphocytes Absolute Auto 2.1 1.2 - 4.9 X10*3/uL [facility] Monocytes Absolute Auto 0.5 0.1 - 1.2 X10*3/uL [facility] Eosinophils Absolute Auto 0.7(H) 0.0 - 0.4 X10*3/uL [facility] Basophils Absolute Auto 0.1 0.0 - 0.2 X10*3/uL [facility] NRBC Abs Auto 0.000 0.0 - 0.012 X10*3/uL [facility] 10/19/2024 1:35 PM EDT 10/19/2024 1:38 PM EDT us Generic External Data Provider LAB BLOOD ORDERAB LES Final Result [facility] [address] [place] [phone] * Magnesium (10/19/2024 1:35 PM EDT) Magnesium 1.9 1.6 - 2.6 mg/dL [facility] 10/19/2024 1:35 PM EDT 10/19/2024 1:38 PM EDT us Generic External Data Provider LAB BLOOD ORDERAB LES Final Result Performing Organization Address City/[facility]/ZIP Co de Phone Number [facility] [address] [place] [phone] * (ABNORMAL) Lipase (10/19/2024 1:35 PM EDT) Lipase 6(L) 8 - 78 U/L [facility] 10/19/2024 1:35 PM EDT 10/19/2024 1:38 PM EDT Generic External Data Provider LAB BLOOD ORDERAB LES Final Result Performing Organization Address [facility] Co de Phone Number [facility] [address] [place] [phone] * (ABNORMAL) Comprehensive Metabolic Panel (10/19/2024 1:35 PM EDT) Sodium 141 135 - 145 mmol/L [facility] Potassium 4.1 3.3 - 5.1 mmol/L [facility] Chloride 106 96 - 108 mmol/L [facility] Carbon Dioxide 27 22 - 29 mmol/L [facility] Anion Gap 12 12 - 20 [facility] Urea Nitrogen (BUN) 12 9 - 16 mg/dL [facility] Creatinine, Serum 0.60 0.5 - 1.4 mg/dL [facility] Creatinine Clr Calc Pharmacy 120.9 [facility] Comment:Provided height and weight: 162.56 cm,105.3 kg.eGFR (calculated from the MDRD study equation) and eCrCl(calculated from the Cockcroft-Gault equation) are based ondifferent parameters and may not yield comparable results.If eCrCl result is absurd, please check patient'sheight/weight. Estimated Glomerular Filt Rate >60 [facility] Comment:Chronic Kidney Disea se: Estimated GFR < 60 mL/min/1.48t2Qfauth Kidney Disease: Estimated GFR < 15 mL/min/1.73m2 Glucose 111 60 - 115 mg/dL [facility] Calcium 9.1 8.4 - 10.2 mg/dL [facility] Bilirubin, Total 0.5 0.0 - 1.0 mg/dL [facility] Aspartate Amino Transferase 21 5 - 31 U/L [facility] Alanine Aminotransferase 22 0 - 31 U/L [facility] Total Protein 7.5 6.5 - 8.0 g/dL [facility] Albumin Level 4.0 3.5 - 5.0 g/dL [facility] Alkaline Phosphatase 151(H) 39 - 117 U/L [facility] 10/19/2024 1:35 PM EDT 10/19/2024 1:38 PM EDT Generic External Data Provider LAB BLOOD ORDERAB LES Final Result Performing Organization Address City/State/[facility] Co de Phone Number [facility] [address] [place] [phone] * XR KUB and Upright 2 Views (10/19/2024 12:42 PM EDT) Anatomical Region Laterality Modality Radiographic Tricia ging 10/19/2024 12:4 2 PM EDT Narrative 10/19/2024 1:56 PM EDT [address] [address] XRay Report Signed Patient: Gaby Arteaga MR#: [id number] 46 : 1965 Acct:[id number] Age/Sex: 59 / F ADM Date: 10/19/24 Loc: HO.ED Attending Dr: Ordering Physician: Generic ED Physician Date of Service: 10/19/24 Procedure(s): XR KUB Accession Number(s): [id number] cc: Generic ED Physician; ALONA CRANE NP [...] 10/19/24 1352 DD/ 1242 TD/TT: 10/19/24 1344 Cyber Forensics Analyst: Procedure Note Donotuseinterpreter, Alexi - 10/19/[address] [address] XRay Report Signed Patient: Wyatt Arteaga#: [id number] 46 : 1965Acct:[id number] Age/Sex: 59 / FADM Date: 10/19/24 Loc: .ED Attending Dr: Ordering Physician: Generic ED Physician Date of Service: 10/19/24 Procedure(s): XR KUB Accession Number(s): [id number] cc: Generic ED Physician; ALONA CRANE NP [...] 10/19/24 1352 DD/ 1242 TD/TT: 10/19/24 1344 Cyber Forensics Analyst: us [facility] External Provider IMG XR PROCEDURES Final Result * Hemoglobin A1c (07/21/2024 1:20 PM EDT) Hemoglobin A1c 5.8 <6.0 % [facility] Comment:Hemoglobin A1C Refer ence Range Adults: 4.8 - 6.0 % Non diabetic: < 6.0 % Goal: < 7.0 %Additional Action Suggested: > 8.0 %Note: Hemoglobin A1c results are invalid for patients with abnormal amounts of HbF. Blood transfusions may impact the HbA1c concentration in the patient sample. Estimated Average Glucose 120 mg/dL [facility] Comment:eAG = Estimated ave rage glucose which is %A1C expressed asaverage glucose, using the formula of the [id number] Glucose study (ADAG), Diabetes Care, Vol.31,#8,Oct. 2007 07/21/2024 1:20 PM EDT 07/21/2024 1:20 PM EDT Alona MOSCOSO LAB BLOOD ORDERABLES Final Resul t Performing Organization Address [facility] Co de Phone Number [facility] [address] [place] [phone] * Hepatitis C Antibody with Reflex to HCV, RNA, Quantitative, Real-Time PCR (07/04/2024 2:31 PM EDT) Hepatitis C Antibody Nonreactive Nonreactive [facility] Comment:Antibodies to HCV no t detected; does not exclude early acuteHCV infection. 07/04/2024 2:31 PM EDT 07/04/2024 4:02 PM EDT Jacoby Donald MD LAB BLOOD ORDERABLES Final Resul t Performing Organization Address [facility] Co de Phone Number [facility] [address] [place] [phone] * HIV-1/2 Antigen and Antibodies, Fourth Generation, with Reflexes (07/04/2024 2:31 PM EDT) HIV AB/AG Nonreactive Nonreactive [facility] Comment:HIV-1 p24 Ag and/or HIV-1/HIV-2 Ab not detected.A test result that is nonreactive does not exclude thepossibility of exposure to or infection with HIV-1 and/orHIV-2. Nonreactive results in this assay for individualswith prior exposure to HIV-1 and/or HIV-2 may be due toantigen and antibody levels that are below the limit ofdetection of this assay.The Teevox HIV Ag/Ab Combo assay result andsupplemental assay results should be interpreted inconjunction with the patient's clinical presentation,history and other laboratory results. If the results areinconsistent with clinical evidence, additional testing issuggested to confirm the result. 07/04/2024 2:31 PM EDT 07/04/2024 4:02 PM EDT us Jacoby Donald MD LAB BLOOD ORDERABLES Final Resul t [facility] [address] [place] [phone] * BI Mammogram Screening Tomosynthesis Bilateral (06/17/2024 2:15 PM EDT) Anatomical Region Laterality Modality Breast Bilateral Mammography 06/17/2024 2:15 PM EDT Narrative 06/25/2024 3:10 [address]T [address] [place] [address] Mammography Report Signed Patient: Gaby Arteaga MR#: [id number] 46 : 1965 Acct:[id number] Age/Sex: 58 / F ADM Date: 06/17/24 Loc: YUSUF.MAMMO Attending Dr: Alona Crane NP Ordering Physician: ALONA CRANE NP Results: 1Negative Date of Service: 06/17/24 Follow Up: 1 Year From Orig [facility]ammogram Procedure(s): MM tomosynthesis screening BI Accession Number(s): [id number] cc: ALONA CRANE NP EXAMINATION: MM SCREENING [...] 06/25/24 1506 DD/ 1415 TD/TT: 06/17/24 1440 Cyber Forensics Analyst: Procedure Note Donotuseinterpreter, Image - 06/25/2024 [facility] [address] [place] [address] Mammography Report Signed Patient: Wyatt Arteaga#: [id number] 46 : 1965Acct:[id number] Age/Sex: 58 / FADM Date: 06/17/24 Loc: YUSUF.MAMMO Attending Dr: Alona Crane NP Ordering Physician: ALONA CRANE NPResults: 1Negative Date of Service: 06/17/24Follow Up: 1 Year From Orig inal Mammogram Procedure(s): MM tomosynthesis screening BI Accession Number(s): [id number] cc: ALONA CRANE NP EXAMINATION: MM SCREENING [...] 06/25/24 1506 DD/ 1415 TD/TT: 06/17/24 1440 Cyber Forensics Analyst: [facility] BI PROCEDURES Edited Result - Final * (ABNORMAL) Cologuard?? colon cancer screening (05/27/2024 2:49 PM EST) Cologuard Result Positive( A) Negative 06/04/2024 5:36 PM EDT [facility] [employer] [facility] (CLIA #:[id number]) Comment: POSITIVE TEST RESULT. A positive Cologuard [...] (Roverto Camargo al, N Engl J Med 2014;370(14):5446-2656.) Cologuard may produce a false negative or false positive result (no colorectal cancer or precancerous polyp present at colonoscopy follow up). A negative Cologuard test result does not guarantee the absence of CRC or advanced adenoma (pre-cancer). The current Cologuard screening interval is every 3 years. ([place] [employer] Society and U.S. Multi-Society Task Force). Cologuard performance data in a 10,000 patient pivotal study using colonoscopy as the reference method can be accessed at the following location: www.CompBlue/results. Additional description of the Cologuard test process, warnings and precautions can be found at www.PernixDatard.com. Stool specimen (specimen) 05/27/2024 2:49 PM EST 05/29/2024 11:29 PM EDT [facility] MOLECULAR DIAGNOSTICS ORDERA BLES Final Result [employer] (CLIA #:[id number]) [place] [address], * (ABNORMAL) LIPID PANEL, STANDARD (04/03/2020 2:27 [...] LDL-C. Faustino MCLAIN et al. NICHOLAS. 2013;310(19): 5137-8828 (http://education.Anchanto.Gaudena/faq/DJG305) Non-HDL Cholesterol 157(H) <130 mg/dL (calc) [facility] Comment: For patients with diabetes plus 1 major ASCVD risk factor, treating to a non-HDL-C goal of <100 mg/dL (LDL-C of <70 mg/dL) is considered a therapeutic option. Triglycerides 165(H) <150 mg/dL [facility] 04/03/2020 2:27 PM EST us Syed Hardy MD LAB BLOOD ORDERABLES Final Resul t [facility] [address] from Last 3 Months or Most Recently Relevant to Health Maintenance Insurance [facility] C3 Care Teams Hot Tamale Worker Relationship Specialty Start Date End Date Alona Crane ANP [address] [place] [address] PCP - General Family Medicine 02/11/22 Aldo Araiza, SIRISHA [address] [place] [address] Registered Nurse Family Medicine 10/20/24 Claudine Arnold 10/20/24 Lilian Varghese Household ChoresAcademic Director 07/02/23
--- OUTSIDE RECORDS SUMMARY | 2024-12-30 21:34 | XMS_ITS | Encounter Summary ---
Author Organization [employer] Address [address] [facility] 7t [place] [address] Care Team Providers Care Creasing Machine Operator Name Role Phone Juani Sosa Primary Care Provider [phone] Aldo Araiza RN Unavailable [phone] Claudine Arnold Unavailable Reason for Visit * Reason Onset Date Comments Med Refill 07/18/2024 Encounter Details Date Type Department Care Team (Late st Contact Info) Description 07/18/2024 Telephone [facility] MEDICINE [address] [place], [place] [phone] Juani Sosa ANP [address] [place], [place] [phone] Med Refill Social History Tobacco Use Types [...] AM EDT Medications requested were sent to [facility] on 05/02/24 90 day supply and Aspirin not prescribedby PCP. * Telephone Encounter - Sean Arnold - 07/18/2024 11:11 AM EDT TC from pt requesting medication refill. Medications needing refill: albuterol (ProAir HFA) 108 (90 Base) MCG/ACT inhaler Aspirin Low Dose 81 MG EC tablet hydroCHLOROthiazide (HYDRODiuril) 25 MG tablet omeprazole (PriLOSEC) [address] capsule To be sent to: [facility] [place], [place] - [address] [place] [address] documented in this encounter Plan of Treatment Upcoming Encounters Date Type Department Care Team (Late st Contact Info) Description 01/09/2025 1:00 PM EDT Clinical Support [address] [address] Nalini Blum RN 01/11/2025 2:30 PM EDT Office Visit [address] [address] Juani Sosa ANP [address] [place] [phone] 01/18/2025 3:45 PM EDT Procedure Visit [address] [address] Chelsey Mckenzie CNM [address] [place] [address] documented as of this encounter Visit Diagnoses Not on filedocumented in this encounter Additional Health Concerns Assessment Noted Time PHQ-9 Depression Total Score: 16 025 11:09 AM EST documented as of this encounter Care Teams Creasing Machine Operator Relationship Specialty Start Date End Date Juani Sosa ANP [address] [place] [phone] PCP - General Family Medicine 02/11/22 Aldo Araiza, SIRISHA [address] [place] [address] Registered Nurse Family Medicine 10/20/24 Claudine Arnold 10/20/24 Lilian Varghese Stock FeederNursery Hand 07/02/23 documented as of this encounter
--- OUTSIDE RECORDS SUMMARY | 2024-12-30 21:34 | XMS_ITS ---
Author Organization [employer] Address [address] [place] [address] 7t [place] [address] Care Team Providers Care Orthopedic Radiologic Technologist Name Role Phone Juani Sosa Primary Care Provider [phone] Aldo Araiza RN Unavailable [phone] Claudine Arnold Unavailable [facility] Complex Status:Enrolled (Active) Start date:10/20/2024 Enrollment date:11/02/2024 Enrollment reason:ADT Feed Overview ED- Pt went to [facility] ED on 10/19/24. Please outreach for enrollment. Case Team Name Relationship Phone Claudine Arnold(Responsible Staff) [phone] Continued Care and Services Coordination
--- OUTSIDE RECORDS SUMMARY | 2024-12-30 21:34 | XMS_ITS | Encounter Summary ---
Author Organization [employer] Address 75 [facility] 7t [place] [address] Care Team Providers Care Census Clerk Name Role Phone Juani Sosa Primary Care Provider [phone] Aldo Araiza RN Unavailable Claudine Arnold Unavailable Reason for Visit * Reason Comments Med Refill Encounter Details Date Type Department Care Team (Late st Contact Info) Description 10/17/2024 Refill [facility] [address] [place], [place] [phone] Juani Sosa ANP 230 [place] [address] Moderate persistent asthma without complication Social History [...] Description 01/09/2025 1:00 PM EDT Clinical Support [address] [address] Nalini Blum, SIRISHA 01/11/2025 2:30 PM EDT Office Visit [facility] [address] [place] [address] Juani Sosa ANP [address] [place] [address] 01/18/2025 3:45 PM EDT Procedure Visit [facility] [address] [place] [address] Chelsey Mckenzie CNM [address] [place] [address] documented as of this encounter Visit Diagnoses Diagnosis Moderate persistent asthma without complication documented in this encounter Additional Health Concerns Assessment Noted Time PHQ-9 Depression Total Score: 16 05/17/ 025 11:09 AM EST documented as of this encounter Care Teams Census Clerk Relationship Specialty Start Date End Date Juani Sosa ANP 230 [place] [address] PCP - General Family Medicine 02/11/22 Aldo Araiza, SIRISHA [address] [place] [address] Registered Nurse Family Medicine 10/20/24 Claudine Arnold 10/20/24 Lilian Varghese Locomotive Switch OperatorStacker Operator 07/02/23 documented as of this encounter
--- OUTSIDE RECORDS SUMMARY | 2024-12-30 21:34 | XMS_ITS | Encounter Summary ---
Author Organization [employer] Address 75 [facility] 7t [place] [address] Care Team Providers Care Lead Case Manager Name Role Phone Juani Sosa Primary Care Provider [phone] Aldo Araiza RN Unavailable [phone] Claudine Arnold Unavailable Reason for Visit * Reason Onset Date Comments Pre op 04/13/2023 Encounter Details Date Type Department Care Team ([facility] st Contact Info) Description 04/13/2023 Telephone [facility] [address] [place], [place] [phone] Juani Sosa ANP [address] [place], [place] [phone] Pre op Social History Tobacco Use Types [...] Surgeon's name: Dr Tim Mcdermott Facility name: [facility]geon's office number: [phone] Surgeon's office fax number: [phone] Contact name (person you spoke with): Ngoc from [facility] office Last office note from surgeon requested: no documented in this encounter Plan of Treatment Upcoming Encounters Date Type Department Care Team (Late st Contact Info) Description 01/09/2025 1:00 PM EDT Clinical Support [facility] [address] [place] [address] Nalini Blum, SIRISHA 01/11/2025 2:30 PM EDT Office Visit [facility] [address] [place] [address] Juani Sosa ANP [address] [place] [address] 01/18/2025 3:45 PM EDT Procedure Visit [facility] [address] [place], [place] [phone] Cehlsey Mckenzie CNM [address] [place], [place] [phone] documented as of this encounter Visit Diagnoses Not on filedocumented in this encounter Additional Health Concerns Assessment Noted Time PHQ-9 Depression Total Score: 14 024 10:44 AM EST documented as of this encounter Care Teams Lead Case Manager Relationship Specialty Start Date End Date Juani Sosa ANP [address] [place], [place] [phone] PCP - General Family Medicine 02/11/22 Aldo Araiza, SIRISHA [address] [place] [address] Registered Nurse Family Medicine 10/20/24 Claudine Arnold 10/20/24 Lilian Varghese Shafting CleanerLeadership Coach 07/02/23 documented as of this encounter
--- OUTSIDE RECORDS SUMMARY | 2024-12-30 21:34 | XMS_ITS | Encounter Summary ---
Author Organization [employer] Address [address] [facility] [address] 7t [place] [address] Care Team Providers Care Director Technical Name Role Phone Juani Sosa Primary Care Provider [phone] Aldo Araiza RN Unavailable [phone] Claudine Arnold Unavailable Reason for Visit * Reason Comments Med Change Request Encounter Details Date Type Department Care Team (Late st Contact Info) Description 08/05/2023 Refill [facility] [address] [place] [address] Leeanne Mandel FNP Moderate persistent asthma with [...] 1:00 PM EDT Clinical Support [facility] [address] [place] [address] Nalini Blum, RN 01/11/2025 2:30 PM EDT Office Visit [facility] [address] [place] [address] Juani Sosa ANP 230 [place] [address] 01/18/2025 3:45 PM EDT Procedure Visit [facility] [address] [place] [address] Chelsey Mckenzie CNM [address] [place] [address] documented as of this encounter Visit Diagnoses Diagnosis Moderate persistent asthma with acute exacerbation documented in this encounter Additional Health Concerns Assessment Noted Time PHQ-9 Depression Total Score: 10 024 10:06 AM EST documented as of this encounter Care Teams Director Technical Relationship Specialty Start Date End Date Juani Sosa ANP 230 [place] [address] PCP - General Family Medicine 02/11/22 Aldo Araiza RN [address] [place] [address] Registered Nurse Family Medicine 10/20/24 Claudine Arnold 10/20/24 Lilian Varghese Table Games Floor SupervisorHand Etcher 07/02/23 documented as of this encounter
--- OUTSIDE RECORDS SUMMARY | 2024-12-30 21:34 | XMS_ITS | Encounter Summary ---
Author Organization [employer] Address [address] [facility] [address] 7t [place] [address] Care Team Providers Care Marriage And Family Teacher Name Role Phone Juani Sosa Primary Care Provider Aldo Araiza RN Unavailable [phone] Claudine Arnold Unavailable Encounter Details Date Type Department Care Team (Late st Contact Info) Description 08/07/2023 Orders Only [facility] [address] [place] [address] Leeanne Mandel FNP Social History Tobacco Use [...] 01/09/2025 1:00 PM EDT Clinical Support [address] [address] Nalini Blum RN 01/11/2025 2:30 PM EDT Office Visit [address] [address] Juani Sosa ANP [address] [place] [address] 01/18/2025 3:45 PM EDT Procedure Visit [address] [address] Chelsey Mckenzie CNM [address] [place] [address] documented as of this encounter Visit Diagnoses Not on filedocumented in this encounter Additional Health Concerns Assessment Noted Time PHQ-9 Depression Total Score: 10 024 10:06 AM EST documented as of this encounter Care Teams Marriage And Family Teacher Relationship Specialty Start Date End Date Juani Sosa ANP [address] [place] [address] PCP - General Family Medicine 02/11/22 Aldo Araiza RN [address] [place] [address] Registered Nurse Family Medicine 10/20/24 Claudine Arnold 10/20/24 Lilian Varghese Kennel HandBox Spinner 07/02/23 documented as of this encounter
--- OUTSIDE RECORDS SUMMARY | 2024-12-30 21:35 | XMS_ITS | Encounter Summary ---
Author Organization [employer] Address 75 [facility] 7t [place] [address] Care Team Providers Care Archeology Faculty Member Name Role Phone Juani Sosa Primary Care Provider [phone] Aldo Araiza RN Unavailable [phone] Claudine Arnold Unavailable Reason for Visit * Reason Comments Care Coordination SDOH f/u -appointmen t reminder Encounter Details Date Type Department Care Team (Latest Contact Info) Description 12/28/[address] [facility] 230 [place], [place] [phone] Juani Sosa ANP 230 [place] [address] Care Coordination (SDOH f/u -appointment reminder) Social [...] outbound call to patient introducing herself from [facility] CM Department, in regards to remind patient of appt for 12/29/24 245pm at [facility] cardio. Patient's name and was confirmed. Patient is aware and confirmed will be available and has no barriers on attending this appointment. Patient verbalized understanding and agrees with plan. (Patient also stated she is still in contact with Macey doe [facility] and continues to help with her struggles of homelessness.) CHW will follow up with patient within 10 days.) documented in this encounter Plan of Treatment Upcoming Encounters Date Type Department Care Team (Late st Contact Info) Description 01/09/2025 1:00 PM EDT Clinical Support [address] [address] Nalini Blum, SIRISHA 01/11/2025 2:30 PM EDT Office Visit [address] [address] Juani Sosa ANP 230 [place] [address] 01/18/2025 3:45 PM EDT Procedure Visit [address] [address] Chelsey Mckenzie CNM 230 [place] [address] documented as of this encounter Visit Diagnoses Not on filedocumented in this encounter Additional Health Concerns Assessment Noted Time PHQ-9 Depression Total Score: 15 025 1:15 PM EDT documented as of this encounter Care Teams Archeology Faculty Member Relationship Specialty Start Date End Date Juani Sosa ANP [address] [place] [address] PCP - General Family Medicine 02/11/22 Aldo Araiza, SIRISHA [address] [place] [address] Registered Nurse Family Medicine 10/20/24 Claudine Arnold 10/20/24 Lilian Varghese Regulatory Submissions SpecialistWall To Wall Carpet Installer 07/02/23 documented as of this encounter
--- OUTSIDE RECORDS SUMMARY | 2024-12-30 21:35 | XMS_ITS | Encounter Summary ---
Author Organization [employer] Address [address] [facility] [address] 7t [place] [address] Care Team Providers Care Analytics Leader Name Role Phone Juani Sosa Primary Care Provider [phone] Aldo Araiza RN Unavailable [phone] Claudine Arnold Unavailable Reason for Visit * Reason Onset Date Comments Durable Medical Equipment 02/17/2023 Edvin Encounter Details Date Type Department Care Team ([facility] st Contact Info) Description 02/17/2023 Telephone [facility] 230 [place], [place] [phone] Juani Sosa ANP 230 [place] [address] Durable Medical Equipment (Walker) Social History Tobacco [...] Walker states requested back in November however clinical writer does not see it on patients chart. documented in this encounter Plan of Treatment Upcoming Encounters Date Type Department Care Team (Late st Contact Info) Description 01/09/2025 1:00 PM EDT Clinical Support [address] [address] Nalini Blum, RN 01/11/2025 2:30 PM EDT Office Visit [address] [address] Juani Sosa ANP [address] [place] [address] 01/18/2025 3:45 PM EDT Procedure Visit [address] [address] Chelsey Mckenzie CNM 230 [place] [address] documented as of this encounter Visit Diagnoses Not on filedocumented in this encounter Additional Health Concerns Assessment Noted Time PHQ-9 Depression Total Score: 16 023 9:58 AM EDT documented as of this encounter Care Teams Analytics Leader Relationship Specialty Start Date End Date Juani Sosa ANP [address] [place] [address] PCP - General Family Medicine 02/11/22 Aldo Araiza, SIRISHA [address] [place] [address] Registered Nurse Family Medicine 10/20/24 Claudine Arnold 10/20/24 Lliian Varghese MidwifeBeam Machine Operator 07/02/23 documented as of this encounter
--- OUTSIDE RECORDS SUMMARY | 2024-12-30 21:35 | XMS_ITS | Encounter Summary ---
Author Organization [employer] Address [address] [facility] [address] 7t [place] [address] Care Team Providers Care Auto Body Repairer Name Role Phone Juani Sosa Primary Care Provider [phone] Aldo Araiza RN Unavailable [phone] Claudine Arnold Unavailable Reason for Visit * Reason Comments Med Change Request Encounter Details Date Type Department Care Team ([facility] Contact Info) Description 01/13/2023 Refill [facility] 230 [place], [place] [phone] Jacoby Donald MD 230 [place], [place] [phone] Social History Tobacco Use Types Packs/Day Years [...] Description 01/09/2025 1:00 PM EDT Clinical Support [address] [address] Nalini Blum RN 01/11/2025 2:30 PM EDT Office Visit [address] [address] Juani Sosa ANP [address] [place] [address] 01/18/2025 3:45 PM EDT Procedure Visit [address] [address] Chelsey Mckenzie CNM [address] [place] [address] documented as of this encounter Visit Diagnoses Not on filedocumented in this encounter Additional Health Concerns Assessment Noted Time PHQ-9 Depression Total Score: 16 023 9:58 AM EDT documented as of this encounter Care Teams Auto Body Repairer Relationship Specialty Start Date End Date Juani Sosa ANP [address] [place] [address] PCP - General Family Medicine 02/11/22 Aldo Araiza RN [address] [place] [address] Registered Nurse Family Medicine 10/20/24 Claudine Arnold 10/20/24 Lilian Varghese Junior Network EngineerDrum Sander Offbearer 07/02/23 documented as of this encounter
--- OUTSIDE RECORDS SUMMARY | 2024-12-30 21:35 | XMS_ITS | Encounter Summary ---
Author Organization [employer] Address [address] [place] [address] 7t [place] [address] Care Team Providers Care Costume Designer Name Role Phone Juani Sosa Primary Care Provider [phone] Aldo Araiza RN Unavailable [phone] Claudine Arnold Unavailable Reason for Visit * Reason Comments Care Management C3CM- f/u call Encounter Details Date Type Department Care Team ([facility] st Contact Info) Description 12/27/2024 Patient Outreach [facility] [address] [place], [place] [phone] Juani Sosa ANP 230 [place] [address] Care Management (C3CM- f/u call) Social History [...] provided on Walk-In Urgent Care located in [facility]. Patient provided with after-hours line for [facility], , which offer night time triage service and option to transfer to international sourcing manager provider if needed. Patient verbalizes understanding, and able to r epeat back to report writer. A follow up call will be placed within 10 days, patient agrees with plan. documented in this encounter Plan of Treatment Upcoming Encounters Date Type Department Care Team (Late st Contact Info) Description 01/09/2025 1:00 PM EDT Clinical Support [address] [address] Nalini Blum RN 01/11/2025 2:30 PM EDT Office Visit [address] [address] Juani Sosa ANP [address] [place] [address] 01/18/2025 3:45 PM EDT Procedure Visit [address] [address] Chelsey Mckenzie CNM [address] [place] [address] documented as of this encounter Visit Diagnoses Not on filedocumented in this encounter Additional Health Concerns Assessment Noted Time PHQ-9 Depression Total Score: 15 025 1:15 PM EDT documented as of this encounter Care Teams Costume Designer Relationship Specialty Start Date End Date Juani Sosa ANP [address] [place] [address] PCP - General Family Medicine 02/11/22 Aldo Araiza, SIRISAH [address] [place] [address] Registered Nurse Family Medicine 10/20/24 Claudine Arnold 10/20/24 Lilian Varghese Leather Goods AssemblerTransportation Services Representative 07/02/23 documented as of this encounter
--- OUTSIDE RECORDS SUMMARY | 2024-12-30 21:35 | XMS_ITS | Encounter Summary ---
Author Organization [employer] Address 75 [facility] 7t [place] [address] Care Team Providers Care Paid Intern Name Role Phone Juani Sosa Primary Care Provider [phone] Aldo Araiza RN Unavailable [phone] Claudine Arnold Unavailable Reason for Visit * Reason Onset Date Comments ER Follow-up 11/10/2023 Encounter Details Date Type Department Care Team ([facility] st Contact Info) Description 11/10/2023 Telephone [facility] 230 [place], [place] [phone] Juani Sosa ANP 230 [place], [place] [phone] ER Follow-up Social History Tobacco Use Types [...] ED visit on : Date: 11/09/23 Hospital: [facility] Seen for: Chest Pain, breathing trouble, and Leg swelling. Patient advised will forward to team nurse for follow up documented in this encounter Plan of Treatment Upcoming Encounters Date Type Department Care Team (Late st Contact Info) Description 01/09/2025 1:00 PM EDT Clinical Support [facility] [address] [place] [address] Nalini Blum, RN 01/11/2025 2:30 PM EDT Office Visit [facility] [address] [place] [address] Juani Sosa, BLANKA 230 [place] [address] 01/18/2025 3:45 PM EDT Procedure Visit [facility] [address] [place] [address] Chelsey Mckenzie CNM 230 [place] [address] documented as of this encounter Visit Diagnoses Not on filedocumented in this encounter Additional Health Concerns Assessment Noted Time PHQ-9 Depression Total Score: 9 10/06/19 24 11:29 AM EDT documented as of this encounter Care Teams Paid Intern Relationship Specialty Start Date End Date Juani Sosa ANP [address] [place] [address] PCP - General Family Medicine 02/11/22 Aldo Araiza, SIRISHA [address] [place] [address] Registered Nurse Family Medicine 10/20/24 Claudine Arnold 10/20/24 Lilian Varghese Screen Machine OperatorCover Cutter Machine 07/02/23 documented as of this encounter
[2024-12-30 21:40] LABS: MANUAL DIFF FLAG NO
[2024-12-30 21:43] LABS: Hematocrit 39.6 % (37.0-47.0); Hemoglobin 12.7 g/dl (12.0-16.0); Imm Gran Abs Auto 0.03 X10*3/uL (0.00-0.03); Imm Gran Pct Auto 0.3 % (0.0-0.4); Lymphocytes Absolute Auto 1.6 X10*3/uL (1.2-4.9); Mean Corpuscular HGB Conc 32.1 g/dl (31.0-35.0); Mean Corpuscular Hemoglobin 27.8 pg (27.0-33.0); Mean Corpuscular Volume 86.7 fL (80.0-98.0); NRBC Abs Auto 0.000 X10*3/uL (0.0-0.012); NRBC Pct Auto 0.0 /100WBC (0.0-0.2); Platelet Count 350 X10*3/uL (160-400); Red Blood Count 4.57 X10*6/uL (4.20-5.50); White Blood Count 10.8 X10*3/uL (4.8-10.8)
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
[2024-12-30 22:07] LABS: Alanine Aminotransferase 36 U/L (0-31); Albumin Level 4.4 g/dL (3.5-5.0); Alkaline Phosphatase 168 U/L (39-117); Anion Gap 15 (12-20); Aspartate Amino Transferase 35 U/L (5-31); Blood Urea Nitrogen 11 mg/dL (9-16); Calcium 9.5 mg/dL (8.4-10.2); Carbon Dioxide 31 mmol/L (22-29); Chloride 98 mmol/L (96-108); Creatinine Clr Calc Pharmacy 87.3; Estimated Glomerular Filt Rate > 60; Lipase 6 U/L (8-78); Potassium 3.6 mmol/L (3.3-5.1); Sodium 140 mmol/L (135-145); Total Protein 7.9 g/dL (6.5-8.0); Troponin-I High Sensitivity < 2.7 ng/L (<3.5-17.0)
--- NOTE | 2024-12-30 22:29 | PC.NURSE ---
PT biba AOx4 chief complaint of bilateral lower quadrant ABD pain that radiates to her bilat back and epigastric area 10 aching onset was 2 weeks ago although she reports worsening x2 days. pt denies N/V/D although she does report frequent formed stools. PT reports ABD appears bloated pff her baseline. ABD is soft non-tender or rigid. PT self administered 324mg of ASA prior to EMS arrival and refused nitro in route to hospital and a 20g was placed in her L AC via EMS. On arrival pts vitals were taken and as noted on arrival, EKG, and labs obtained.
[2024-12-30 23:14] VITALS: BP 130/62; PULSE 92; RESP 13; TEMP 36.7; O2SAT 97
[2024-12-30 23:15] VITALS: RESP 14
[2024-12-30 23:36] LABS: Troponin-I High Sensitivity < 2.7 ng/L (<3.5-17.0)
[2024-12-30 23:57] LABS: Appearance Urine Cloudy; Glucose Urine UA Negative (Negative); PH >= 9.0 (5.0-9.0); Specific Gravity - Urine 1.020 (1.005-1.025); UMIC TRIGGER UACC YES
[2024-12-31 00:04] LABS: UACC Culture Trigger YES
--- NOTE | 2024-12-31 00:54 | PC.NURSE ---
reviewed discharge instructions with pt, pt verbalized understanding, Iv removed, notified RN katherine.
[2024-12-31 00:55] VITALS: BP 130/68; PULSE 81; RESP 14; TEMP 36.1; O2SAT 99
== END 2024-12-31 00:55 | disposition home or self-care (01) ==
PROVIDERS: Emergency Provider Emergency Medicine; PCP Nurse Practitioner Primary Care
DX: N39.0 Urinary tract infection, site not specified (principal); R10.22 Pelvic and perineal pain left side; R07.89 Other chest pain; R10.13 Epigastric pain; Z79.899 Other long term (current) drug therapy; Z87.891 Personal history of nicotine dependence
CPT/HCPCS: 36415; 74176; 80053; 81001; 83690; 84484; 84702; 85025; 87086; 93005; 96374; 99284; 99285; J0131; J2270

== ENCOUNTER → 2024-12-30 21:20 | Outpatient (BNV) | payer MEDICAID, SELFPAY | PROVIDERS: Emergency Provider Emergency Medicine; PCP Nurse Practitioner Primary Care; Visit Provider Internal Medicine Cardiovascular Disease | DX: R07.9 Chest pain, unspecified (principal) | CPT/HCPCS: 93010 ==

== ENCOUNTER → 2024-12-30 21:50 | Outpatient (BNV) | payer MEDICAID, SELFPAY | PROVIDERS: Emergency Provider Emergency Medicine; PCP Nurse Practitioner Primary Care; Visit Provider Student in an Organized Health Care Education/Training Program | DX: N20.0 Calculus of kidney (principal) | CPT/HCPCS: 74176 ==

== ENCOUNTER → 2025-01-03 13:05 | Outpatient (BNVA) | payer MEDICAID, SELFPAY | PROVIDERS: PCP Nurse Practitioner Primary Care | DX: Z01.818 Encounter for other preprocedural examination (principal) ==

== ENCOUNTER 2025-02-02 08:23 | Outpatient (REF) | payer MEDICAID, SELFPAY | END 2025-02-02 08:24 | disposition home or self-care (01) | LOC: HO.LAB 08:23 | PROVIDERS: PCP Nurse Practitioner Primary Care; Visit Provider Orthopaedic Surgery | DX: Z01.818 Encounter for other preprocedural examination (principal); M17.11 Unilateral primary osteoarthritis, right knee; Z96.651 Presence of right artificial knee joint | CPT/HCPCS: 99212 ==

== ENCOUNTER 2025-02-02 08:23 | Outpatient (AMB) | payer MEDICAID, SELFPAY ==
--- OUTSIDE RECORDS SUMMARY | 2025-01-30 13:30 | XMS_ITS | Encounter Summary ---
Author Organization [employer] Address [address] [facility] 7t [place] [address] Care Team Providers Care Harness Repairer Name Role Phone Juani Sosa Primary Care Provider [phone] Aldo Araiza RN Unavailable [phone] Claudine Arnold Unavailable Reason for Visit * Reason Comments OBAT TEL Encounter Details Date Type Department Care Team (Latest Contact Info) Description 01/30/2025 1:[address] [facility] [address] [place], [place] [phone] Jacoby Dnoald MD [address] [place], [place] [phone] Uncomplicated opioid dependence (CMS/HCC) (HCC) (Primary Dx) Social History Tobacco Use Types [...] Progress Notes * Jacoby Donald MD - 01/30/2025 1:30 PM EST Subjective Patient ID: Gaby Arteaga is a 59 y.o. female. HPI Patient on current Suboxone dose of 24/6 mg. Increased visit interval to 3 week schedule starting 07/04. Induction date: 07/08/22. In program for 2 years 6 months. LFT's: 10/19/2024 Hep A status: pending (prev fully Iz'd) Hep B status: pending (prev fully Iz'd) Hep C status: pending HIV status: pending Covid Vaccine status: Psych provider: pending Therapist: Nilson MENDOZA reviewed by provider. Last PCP appt: 11/24/23 [facility] reviewed. Gaby was unable to come for an in person visit today due to degree of knee pain. Has right knee replacement scheduled with Yaquelin Browne 2024. Taking Suboxone as prescribed for opioid dependence with no adverse effects. Denies cravings, w/d symptoms or illicit substance use. Has Narcan availale. Declines speaking with field hockey coach or clinician at this time. Former smoker. No EtOH. States that after Thanksgiving she will know the status of moving to a new apartment. The following portions of the chart were [...] for this visit: Uncomplicated opioid dependence (CMS/HCC) ([facility]) Recovery support, harm reduction (including Narcan) and behavioral health attendance reviewed. Continue Suboxone 24/6 mg on 3 week schedule. Has Narcan. documented in this encounter Plan of Treatment Upcoming Encounters Date Type Department Care Team (Late st Contact Info) Description 02/20/2025 1:45 PM EST Office Visit [facility] [address] [place] [address] Jacoby Donald MD [address] [place] [address] 02/21/2025 2:15 PM EST Procedure Visit [address] [address] Chelsey Mckenzie CNM [address] [place] [address] 03/28/2025 2:00 PM EST Office Visit [address] [address] Juani Sosa ANP [address] [place] [address] documented as of this encounter Visit Diagnoses Diagnosis Uncomplicated opioid dependence (CMS/HCC) (HCC)- Primary documented in this encounter Additional Health Concerns Assessment Noted Time PHQ-9 Depression Total Score: 15 025 1:15 PM EDT documented as of this encounter Care Teams Harness Repairer Relationship Specialty Start Date End Date Juani Sosa ANP [address] [place] [address] PCP - General Family Medicine 02/11/22 Aldo Araiza, SIRISHA [address] [place] [address] Registered Nurse Family Medicine 10/20/24 Claudine Arnold 10/20/24 Lilian Varghese Substance Abuse TechnicianManager Market 07/02/23 documented as of this encounter
[2025-02-02 08:28] VITALS: BMI 49.5
--- NOTE | 2025-02-02 08:28 | A.OFFVIS_ITS ---
Vital Signs 02/02/25 08:28 Height 5 ft 1 in Weight 262 lb BMI 49.5 Intake Visit Reasons: Pre-Op: R TKA w/ 02/06/25 Intake Note: Ms. Arteaga is a 59-year-old female who presents with complaints of progressively worsening right knee pain. She describes her pain as sharp and severe in nature, 12/30. Her pain has gotten worse over the last few years in spite of continued non operative treatments. She has had multiple injections which gave her minimal relief. She has also tried Tylenol, anti-inflammatory medicines and physical therapy exercises which gave her no relief. At this point the patient's right knee pain is interfering with her activities of daily living and her ability to sleep well through the night. The patient has difficulty walking even short distances because of her right knee pain. She does walk with a rolling walker. Allergies lisinopril Allergy (Severe, Verified 02/02/25 08:28) Angioedema hydroxyzine (HYDROXYZINE) Adverse Reaction (Intermediate, Verified 02/02/25 08:28) reports redness and swelling Medication List - Last Reconciled 02/02/25 by Tim Mcdermott MD acetaminophen 1,000 mg (2 x 500 mg) PO Q8H PRN albuterol sulfate 90 mcg/actuation (ProAir HFA) 2 puffs inhalation Q4-6H PRN aspirin 81 mg PO DAILY buprenorphine-naloxone 8-2 mg (Suboxone) 1 film sublingual TID calcium carbonate (Tums) 200 mg PO TID PRN cetirizine 10 mg PO DAILY fluticasone furoate 200 mcg/actuation (Arnuity Ellipta) 1 inh inhalation DAILY fluticasone propionate 50 mcg/actuation 2 sprays intranasal DAILY PRN hydrochlorothiazide 25 mg PO DAILY metoprolol succinate ER (Toprol XL) 25 mg PO DAILY naloxone 4 mg/actuation (Narcan) 0 sprays intranasal NEEDED PRN omeprazole 40 mg PO QAM prednisone 40 mg PO DAILY PRN triamcinolone acetonide 0.1% 1 appl topical BID PRN walker Folding front wheeled walker [facility] Medical History Tobacco dependence in remission Panic disorder Uncomplicated opioid dependence Moderate alcohol dependence in sustained remission GERD (gastroesophageal reflux disease) Arthritis Concussion Bilateral leg edema Bilateral knee pain Constipation Sleep apnea Bronchitis COPD (chronic obstructive pulmonary disease) Bipolar 1 disorder PTSD (post-traumatic stress disorder) Obesity H. pylori infection Epigastric pain Left against medical advice Angioedema History of fatty infiltration of liver History of alcohol dependence History of heroin use Chronic knee pain Chronic back pain History of seizure History of panic disorder History of opioid abuse Depression HTN (hypertension) History of left bundle branch block (LBBB) Migraine Anxiety Asthma Surgical History Hx of exploratory laparotomy Hx of colonoscopy Family History Mother Heart disease Arthritis HTN (hypertension) Social History Household Members: None Housing: House Are you a primary daytime caregiver to a significant other at home: No Do you presently have visiting nurse or other home services: Yes (MINER HELPER) Alcohol intake: current Alcohol intake frequency: does not drink Patient Tobacco Use Status: Former Tobacco user Years Smoked: 10 +/- Substance Use Type: Inhalants service: No Current occupational status: unemployed and disabled Current occupation: rt hand Physical Exam Vital Signs: BMI result Body Mass Index 49.5 Const Other: Well-nourished well-developed very friendly female awake alert and oriented x3 in no acute distress Extrem Other: Bilateral lower extremity examination shows good capillary refill, no skin lesions noted, normal sensation light touch Right knee examination shows a minimal effusion, palpable crepitus with range of motion, pain with range of motion, range of motion from -3 degrees to 115 degrees, no instability Results Reviewed Results Reviewed: X-rays of the patient's right knee taken previously show end-stage degenerative joint disease with grade 4 [id number] arthritis, subchondral sclerosis, osteophyte formation, no acute bony abnormalities Assessment & Plan Assessment & Plan (1) Primary osteoarthritis of right knee: Code(s): M17.11 - Unilateral primary osteoarthritis, right knee Category: Medical Plan Ms. Arteaga presents with progressively worsening right knee pain due to end- stage degenerative joint disease. I had a lengthy discussion with the patient regarding the treatment options. At this point she has failed continued non operative treatments. The risks and benefits of right total knee replacement surgery were discussed at length with the patient. The patient wishes to proceed with surgery. mountain services manager will be consulted following her surgery for home physical therapy and nursing. The patient will follow up as instructed. Feel free to call me at any time should questions regarding her orthopedic management arise. I spent 21 minutes in reviewing the patient's records and imaging studies, seeing the patient and documenting in the medical record. Orders: Orders Hemoglobin A1c Today Z01.818 - Encounter for other preprocedural examination Drug Screen Urine 02/06/25 Z01.818 - Encounter for other preprocedural examination PT Evaluation and Treatment 02/06/25 Z96.651 - Presence of right artificial knee joint Coding Level of Care Code Est Pt Level 3 (93136) Complex EM visit Add On G2211 Diagnoses Primary osteoarthritis of right knee M17.11
--- OUTSIDE RECORDS SUMMARY | 2025-02-02 08:42 | XMS_ITS | Encounter Summary ---
Author Organization [employer] Address 75 [facility] 7t [place] [address] Care Team Providers Care Clinical Phlebotomist Name Role Phone Juani Sosa Primary Care Provider [phone] Aldo Araiza RN Unavailable [phone] Claudine Arnold Unavailable Reason for Visit * Reason Onset Date Comments Med Refill 07/18/2024 Encounter Details Date Type Department Care Team (Late st Contact Info) Description 07/18/2024 Telephone [facility] [address] [place], [place] [phone] Juani Sosa ANP 230 [place] [address] Med Refill Social History Tobacco Use Types [...] AM EDT Medications requested were sent to [facility] on 05/02/24 90 day supply and Aspirin not prescribedby PCP. * Telephone Encounter - Sean Arnold - 07/18/2024 11:11 AM EDT TC from pt requesting medication refill. Medications needing refill: albuterol (ProAir HFA) 108 (90 Base) MCG/ACT inhaler Aspirin Low Dose 81 MG EC tablet hydroCHLOROthiazide (HYDRODiuril) 25 MG tablet omeprazole (PriLOSEC) [address] capsule To be sent to: [facility] - [place], [place] - [address] [facility] documented in this encounter Plan of Treatment Upcoming Encounters Date Type Department Care Team (Late st Contact Info) Description 02/20/2025 1:45 PM EST Office Visit [address] [address] Jacoby Donald MD 230 [place] [address] 02/21/2025 2:15 PM EST Procedure Visit [address] [address] Chelsey Mckenzie CNM [address] [place] [address] 03/28/2025 2:00 PM EST Office Visit [address] [address] Juani Sosa ANP [address] [place] [address] documented as of this encounter Visit Diagnoses Not on filedocumented in this encounter Additional Health Concerns Assessment Noted Time PHQ-9 Depression Total Score: 16 025 11:09 AM EST documented as of this encounter Care Teams Clinical Phlebotomist Relationship Specialty Start Date End Date Juani Sosa ANP 230 [place] [address] PCP - General Family Medicine 02/11/22 Aldo Araiza, RN [address] [place] [address] Registered Nurse Family Medicine 10/20/24 Claudine Arnold 10/20/24 Lilian Varghese Civil AttorneyMuffle Worker 07/02/23 documented as of this encounter
--- OUTSIDE RECORDS SUMMARY | 2025-02-02 08:42 | XMS_ITS | Encounter Summary ---
Author Organization [employer] Address [address] [facility] [address] 7t [place] [address] Care Team Providers Care Classifier Tender Name Role Phone Ian Juani MOSCOSO Primary Care Provider [phone] Aldo Araiza RN Unavailable [phone] Claudine Arnold Unavailable Encounter Details Date Type Department Care Team (Latest Contact Info) Description 01/30/2025 Travel Social History Tobacco Use Types Packs/Day [...] Description 02/20/2025 1:45 PM EST Office Visit [facility] [address] [place] [address] Jacoby Donald MD [address] [place] [address] 02/21/2025 2:15 PM EST Procedure Visit [address] [address] Chelsey Mckenzie CNM [address] [place] [address] 03/28/2025 2:00 PM EST Office Visit [facility] [address] [place] [address] Juani Sosa ANP [address] [place] [address] documented as of this encounter Visit Diagnoses Not on filedocumented in this encounter Additional Health Concerns Assessment Noted Time PHQ-9 Depression Total Score: 15 025 1:15 PM EDT documented as of this encounter Care Teams Classifier Tender Relationship Specialty Start Date End Date Juani Sosa ANP [address] [place] [address] PCP - General Family Medicine 02/11/22 Aldo Araiza RN 505 [place] [address] Registered Nurse Family Medicine 10/20/24 Claudine Arnold 10/20/24 Lilian Varghese Institutional Research DirectorProduction Broaching Machine Operator 07/02/23 documented as of this encounter
--- OUTSIDE RECORDS SUMMARY | 2025-02-02 08:42 | XMS_ITS | Encounter Summary ---
Author Organization [employer] Address 75 [facility] 7t [place] [address] Care Team Providers Care Social Services Manager Name Role Phone Juani Sosa Primary Care Provider [phone] Aldo Araiza RN Unavailable [phone] Claudine Arnold Unavailable Reason for Visit * Reason Comments Care Coordination Appointment reminder Encounter Details Date Type Department Care Team (Latest Contact Info) Description 02/01/2025 Patient Outreach [facility] [address] [place], [place] [phone] Juani Sosa ANP [address] [place] [address] Care Coordination (Appointment reminder) Social History Tobacco Use Types Packs/Day [...] encounter Progress Notes * Claudine Arnold - 02/01/2025 11:42 AM EST CHW Claudine Arnold submitted text through [employer] for appointment reminder for appointment on 02/02/25 815am at [facility] ortho. CHW will follow up with patient within 10 days. documented in this encounter Plan of Treatment Upcoming Encounters Date Type Department Care Team ([facility] st Contact Info) Description 02/20/2025 1:45 PM EST Office Visit [address] [address] Jacoby Donald MD [address] [place] [address] 02/21/2025 2:15 PM EST Procedure Visit [address] [phone] Chelsey Mckenzie CNM [address] [place], [place] [phone] 03/28/2025 2:00 PM EST Office Visit [address] [phone] Juani Sosa ANP [address] [place], [place] [phone] documented as of this encounter Visit Diagnoses Not on filedocumented in this encounter Additional Health Concerns Assessment Noted Time PHQ-9 Depression Total Score: 15 025 1:15 PM EDT documented as of this encounter Care Teams Social Services Manager Relationship Specialty Start Date End Date Juani Sosa ANP [address] [place] [phone] PCP - General Family Medicine 02/11/22 Aldo Araiza, SIRISHA [address] [place] [address] Registered Nurse Family Medicine 10/20/24 Claudine Arnold 10/20/24 Lilian Varghese Bus And Sys Integration Senior ManagerCommercial Drone Pilot 07/02/23 documented as of this encounter
--- OUTSIDE RECORDS SUMMARY | 2025-02-02 08:42 | XMS_ITS | Encounter Summary ---
Author Organization [employer] Address 75 [facility] 7t [place] [address] Care Team Providers Care Delicatessen Manager Name Role Phone Juani Sosa Primary Care Provider [phone] Aldo Araiza RN Unavailable [phone] Claudine Arnold Unavailable Reason for Visit * Reason Comments Med Refill Encounter Details Date Type Department Care Team (Late st Contact Info) Description 10/17/2024 Refill [facility] 230 [place], [place] [phone] Juani Sosa ANP 230 [place] [address] Moderate persistent asthma without complication Social History [...] Description 02/20/2025 1:45 PM EST Office Visit [facility] [address] [place] [address] Jacoby Donald MD 230 [place] [address] 02/21/2025 2:15 PM EST Procedure Visit [address] [address] Chelsey Mckenzie CNM [address] [place] [address] 03/28/2025 2:00 PM EST Office Visit [address] [address] Juani Sosa ANP 230 [place] [address] documented as of this encounter Visit Diagnoses Diagnosis Moderate persistent asthma without complication documented in this encounter Additional Health Concerns Assessment Noted Time PHQ-9 Depression Total Score: 16 05/17/2 025 11:09 AM EST documented as of this encounter Care Teams Delicatessen Manager Relationship Specialty Start Date End Date Juani Sosa ANP [address] [place] [address] PCP - General Family Medicine 02/11/22 Aldo Araiza RN [address] [place] [address] Registered Nurse Family Medicine 10/20/24 Claudine Arnold 10/20/24 Lilian Varghese Manager DialysisLaborer Rags 07/02/23 documented as of this encounter
--- OUTSIDE RECORDS SUMMARY | 2025-02-02 08:42 | XMS_ITS | Clinical Summary ---
Author Organization [facility] Address [address] [facility] [address] [place] [address] Phone Care Team Providers Care Community Service Representative Name Role Phone Unknown, Unknown Primary Care [...] (2 - 2024-2 6 season) 2024 07/24/2020 RSV VACCINE (1 - 1-dose 75+ series) 2041 COLORECTAL CANCER SCREENING Completed HEPATITIS A VACCINES Aged Out No long er eligible based on patient's age to complete this topic HIB VACCINES Aged Out No longer eligi ble based on patient's age to complete this topic IPV VACCINES Aged Out No longer eligi ble [...] ACO C3 ACO C3 ACO Care Teams Community Service Representative Relationship Specialty Start Date End Date Unknown, Unknown, PCP - General 08/28/17 Additional Source Comments The information contained in this document represents components of the legal health record. It is not the complete legal health record.[facility]
--- OUTSIDE RECORDS SUMMARY | 2025-02-02 08:43 | XMS_ITS | Encounter Summary ---
Author Organization [employer] Address [address] [facility] [address] 7t [place] [address] Care Team Providers Care Cutting Machine Offbearer Name Role Phone Juani Sosa Primary Care Provider Aldo Araiza RN Unavailable [phone] Claudine Arnold Unavailable Reason for Visit * Reason Onset Date Comments Durable Medical Equipment 02/17/2023 Edvin Encounter Details Date Type Department Care Team ([facility] st Contact Info) Description 02/17/2023 Telephone [facility] [address] [place], [place] [phone] Juani Sosa ANP 230 [place] [address] Durable Medical Equipment (Walker) Social History Tobacco [...] Walker states requested back in November however junior copywriter does not see it on patients chart. documented in this encounter Plan of Treatment Upcoming Encounters Date Type Department Care Team (Late st Contact Info) Description 02/20/2025 1:45 PM EST Office Visit [facility] [address] [place] [address] Jacoby Donald MD [address] [place] [address] 02/21/2025 2:15 PM EST Procedure Visit [facility] [address] [place] [address] Chelsey Mckenzie CNM [address] [place] [address] 03/28/2025 2:00 PM EST Office Visit [facility] [address] [place] [address] Juani Sosa ANP 230 [place], [place] [phone] documented as of this encounter Visit Diagnoses Not on filedocumented in this encounter Additional Health Concerns Assessment Noted Time PHQ-9 Depression Total Score: 16 023 9:58 AM EDT documented as of this encounter Care Teams Cutting Machine Offbearer Relationship Specialty Start Date End Date Juani Sosa ANP [address] [place] [address] PCP - General Family Medicine 02/11/22 Aldo Araiza, SIRISHA [address] [place] [address] Registered Nurse Family Medicine 10/20/24 Claudine Arnold 10/20/24 Lilian Varghese Motorsports TechnicianSalon Assistant 07/02/23 documented as of this encounter
--- OUTSIDE RECORDS SUMMARY | 2025-02-02 08:43 | XMS_ITS ---
Author Organization [employer] Address [address] [place] [address] 7t [place] [address] Care Team Providers Care Chief Business Officer Name Role Phone Juani Sosa Primary Care Provider [phone] Aldo Araiza RN Unavailable [phone] Claudine Arnold Unavailable CM Complex Status:Enrolled (Active) Start date:10/20/2024 Enrollment date:11/02/2024 Enrollment reason:ADT Feed Overview ED- Pt went to [facility] ED on 10/19/24. Case Team Name Relationship Phone Aldo Araiza RN(Responsible Staff) Registered Nurse [phone] Continued Care and Services Coordination
--- OUTSIDE RECORDS SUMMARY | 2025-02-02 08:43 | XMS_ITS | Encounter Summary ---
Author Organization [employer] Address [address] [facility] [address] 7t [place] [address] Care Team Providers Care Radial Drill Operator Name Role Phone Juani Sosa Primary Care Provider [phone] Aldo Araiza RN Unavailable [phone] Claudine Arnold Unavailable Encounter Details Date Type Department Care Team (Late st Contact Info) Description 08/07/2023 Orders Only [facility] [address] [place] [address] Leeanne Mandel FNP Social History Tobacco Use [...] Description 02/20/2025 1:45 PM EST Office Visit [address] [address] Jacoby Donald MD [address] [place] [address] 02/21/2025 2:15 PM EST Procedure Visit [address] [address] Chelsey Mckenzie CNM [address] [place] [address] 03/28/2025 2:00 PM EST Office Visit [address] [address] Juani Sosa ANP [address] [place] [address] documented as of this encounter Visit Diagnoses Not on filedocumented in this encounter Additional Health Concerns Assessment Noted Time PHQ-9 Depression Total Score: 10 024 10:06 AM EST documented as of this encounter Care Teams Radial Drill Operator Relationship Specialty Start Date End Date Juani Sosa ANP [address] [place] [address] PCP - General Family Medicine 02/11/22 Aldo Araiza, RN [address] [place] [address] Registered Nurse Family Medicine 10/20/24 Claudine Arnold 10/20/24 Lilian Varghese Parole AgentPlow Holder 07/02/23 documented as of this encounter
--- OUTSIDE RECORDS SUMMARY | 2025-02-02 08:43 | XMS_ITS | Encounter Summary ---
Author Organization [facility] Address [address] [place] [phone] Phone Care Team Providers Care Fruit Preserver Name Role Phone Unknown, Unknown Primary Care Provider Ramesh ramos Encounter Details Date Type Department Care Team (Latest Contact Info) Description 08/31/2017 Ancillary Orders [facility] [address] [place] [address] [place] [address] Sabina Barr MD [address] [place] [phone] Other coma depth, unspecified coma timing Social [...] timing documented in this encounter Care Teams Fruit Preserver Relationship Specialty Start Date End Date Unknown, Unknown, MD PCP - General 08/28/17 documented as of this encounter Additional Source Comments The information contained in this document represents components of the legal health record. It is not the complete legal health record.[facility]
--- OUTSIDE RECORDS SUMMARY | 2025-02-02 08:43 | XMS_ITS | Encounter Summary ---
Author Organization [employer] Address [address] [place] [address] Care Team Providers Care Kier Boiler Name Role Phone Ian Juani MOSCOSO Primary Care Provider [phone] Aldo Araiza RN Unavailable [phone] Claudine Arnold Unavailable Reason for Visit * Reason Onset Date Comments Med Refill Appointment 09/10/2023 - [facility] Encounter Details Date Type Department Care Team (Late st Contact Info) Description 09/10/2023 Refill [facility] [address] [place] [address] Rafael Shahid FNP Social History Tobacco Use [...] prescriber. Abhi-schedule an apt for 10/06/23 as [id number] documented in this encounter Plan of Treatment Upcoming Encounters Date Type Department Care Team (Late st Contact Info) Description 02/20/2025 1:45 PM EST Office Visit [facility] MED[facility]INE [address] [place] [phone] Jacoby Donald MD [address] [place] [address] 02/21/2025 2:15 PM EST Procedure Visit [facility]INE [address] [place] [phone] Chelsey Mckenzie CNM [address] [place] [address] 03/28/2025 2:00 PM EST Office Visit [facility] MEDICINE [address] [place] [phone] Juani Sosa ANP [address] [place] [address] documented as of this encounter Visit Diagnoses Not on filedocumented in this encounter Additional Health Concerns Assessment Noted Time PHQ-9 Depression Total Score: 10 04/28/ 024 10:06 AM EST documented as of this encounter Care Teams Kier Boiler Relationship Specialty Start Date End Date Juani Sosa ANP [address] [place] [address] PCP - General Family Medicine 02/11/22 Aldo Araiza RN [address] [place] [id number] Registered Nurse Family Medicine 10/20/24 Claudine Arnold 10/20/24 Lilian Varghese Tracer ClerkFleet Coordinator 07/02/23 documented as of this encounter
--- OUTSIDE RECORDS SUMMARY | 2025-02-02 08:43 | XMS_ITS | Clinical Summary ---
Author Organization [employer] Address [address] [facility] [address] [place] [address] Care Team Providers Care Data Systems Manager Name Role Phone Ian Alona MOSCOSO Primary Care Provider Aldo Araiza RN Unavailable [phone] Claudine Arnold Unavailable Allergies Active Allergy Reactions Criticality Noted Date Comments Hydroxyzine High 06/19/2023 Other Reaction(s): reports redness and swelling Lisinopril Angioedema 09/21/2020 Medications * This document contains information received from the source organization and may not represent a complete record from that organization. metoprolol succinate XL (Toprol-XL) 25 MG 24 [...] Use with albuterol 1 each 024 Active fluticasone (Flonase) 50 MCG/ACT nasal sprayIndications: Non-seasonal allergic rhinitis due to other allergic trigger Mcalpin 2 sprays into each nostril every day [...] BY MOUTH EVERY DAY 90 tablet 1 Active triamcinolone (Kenalog) 0.1 % creamIndications: Rash of foot Apply topically 2 times daily. Call clinic if no improvement in 2 weeks 45 g 025 Active albuterol (ProAir HFA) 108 (90 Base) MCG/ACT inhalerIndication s:Moderate persistent asthma without complication Inhale 2 puffs every 4 (four) hours if needed for shortness of breath or wheezing. 18 g 3 025 Active Aspirin Low Dose 81 MG EC tabletIndications :Cardiovascular event risk Take 1 tablet (81 mg) by mouth Once per day. 90 tablet 3 025 Active senna-docusate sodium (Senokot-S) 8.6-50 MG tabletIndications :Constipation by delayed colonic transit Take 1-2 tabs once daily as needed for constipation 90 tablet 3 025 Active Buprenorphine HCl-Naloxone HCl (Suboxone) 8-2 MG SL filmIndications:O pioid use disorder Place 1 Film under the tongue 3 times daily for 21 days. 63 Film 025 2024 Active docusate sodium (Colace) 100 MG capsule TAKE 1 CAPSULE BY MOUTH TWICE DAILY IN THE MORNING AND IN THE EVENING NEEDED FOR CONSTIPATION 180 capsule 1 023 2024 Discontinued(T herapy completed) Aspirin Low Dose 81 MG EC tablet Take 81 mg by mouth Once per day. 024 2024 Discontinued(R eorder (will not trigger notification to Pharmacy)) Buprenorphine HCl-Naloxone HCl (Suboxone) 8-2 MG SL filmIndications:U ncomplicated opioid dependence (CMS/HCC) (FORMERLY [facility]) Place 1 Film under the tongue 2 times daily for 14 days. 28 Film 2024 Discontinued(D uplicate order (will not trigger notification to Pharmacy)) risperiDONE (RisperDAL) 1 MG tablet Take 1 tablet (1 mg) by mouth at bedtime. 90 tablet 1 2024 Discontinued(T herapy completed) tiZANidine (Zanaflex) 2 MG tablet Take 1 tablet (2 mg) by mouth every 6 (six) hours if needed for muscle spasms for up to 10 days. 30 tablet 2024 Discontinued(T herapy completed) senna-docusate sodium (Senokot-S) 8.6-50 MG tabletIndications :Constipation by delayed colonic transit Take 1-2 tabs once daily as needed for constipation 90 tablet 3 2024 Discontinued(R eorder (will not trigger notification to Pharmacy)) buprenorphine-nal oxone (Suboxone) 4-1 MG per sublingual filmIndications:O pioid type dependence, continuous (CMS/HCC) ([facility]) Place 1 Film under the tongue Once per day for 14 days. 14 Film 2024 Discontinued(D uplicate order (will not trigger notification to Pharmacy)) diclofenac (Cataflam) 50 MG tabletIndications :Acute pain of left knee Take 1 tab up to twice daily for pain, take with food 10 tablet 2024 Discontinued(T herapy completed) azithromycin (Zithromax Z-Santino) 250 MG tablet Take 2 tablets once on day 1, then 1 tablet 1x/day for 4 days. 6 tablet 2024 Discontinued(T herapy completed) Buprenorphine HCl-Naloxone HCl (Suboxone) 8-2 MG SL filmIndications:O pioid use disorder Place 1 Film under the tongue 3 times daily for 21 days. 63 Film 2024 Discontinued(R eorder (will not trigger notification to Pharmacy)) amoxicillin (Amoxil) 500 MG capsuleIndication s:Acute non-recurrent frontal sinusitis Take 1 capsule (500 mg) by mouth every 8 (eight) hours for 7 days. 21 capsule 025 2024 Active Problems Problem Noted Date [...] think is appropriate to refer to an import/export specialist she may require further testing. In the meantime I have recommended against the use of NSAIDS going forward and protect herself when outdoors. Since her symptoms are resolved no need for treatment at the moment. Pt has Zyrtec at home which she will continue to take. Abnormal nuclear stress test 08/05/2023 Acute bronchitis with chroni c obstructive pulmonary disease (COPD) (CMS/[facility]ER[facility]) ([facility]) 08/05/2023 Dyspnea on exertion 08/05/2023 Gastroparesis 08/05/2023 History of heroin use 08/05/2023 LBBB (left bundle branch block) 08/05/2023 Overview (01/11/2025): Intermittent per cards KENDRA (obstructive sleep apnea) 08/05/2023 PTSD (post-traumatic [...] be referred to new [facility] Psychiatric provider. Pt is aware that appts will be via televisit and that provider will not be an [facility] employee. She gives permission to share [...] major depre ssive disorder with psychotic features ([facility]/HCC) 07/18/2022 Tear of medial meniscus of knee 01/27/2020 01/30/2023 Anxiety 11/18/2017 Essential hypertension 09/03/2016 Moderate alcohol dependence (CMS/[facility]) 09/03/2016 Overview (01/11/2025): Stopped drinking 2022 or 2023 Uncomplicated opioid dependence (CMS/HCC) 2016 Panic disorder [...] and Suboxone. She will also F/U with [facility] clinician Nilson and the supports of the [facility] program. F/U with me in 2-3 weeks. She agrees with the plan. Opioid abuse 07/02/2022 05/17/2024 Encounters Date Type Department Care Team Description 02/01/2025 Patient Outreach [address] [address] Alona Crane ANP Care Coordination (Appointment reminder) 01/30/2025 1:30 PM EST Telemedicine [address] [phone] Jacoby Donald MD Uncomplicated opioid dependence (CMS/HCC) (HCC) (Primary Dx) 01/30/2025 Travel 01/23/2025 Patient Outreach [address] [address] Alona Crane ANP Care Management (C3CM- f/u call) 01/23/[address] [address] Nalini Blum RN Opioid use disorder 01/20/2025 9:40 AM EDT Office Visit [facility] [address] [place] [phone] Vijay Mojica MD Acute non-recurrent frontal sinusitis (Primary Dx) 01/20/2025 Travel 01/17/2025 Patient Outreach [address] [address] Alona Crane ANP Care Coordination (Appointment reminder) 01/13/[address] [address] Alona Crane ANP March01/11/2025 2:30 PM EDT Office Visit [address] [phone] Alona Crane ANP Preoperative clearance (Primary Dx); Essential hypertension; KENDRA (obstructive sleep apnea); Alcohol dependence in early full remission (CMS/HCC) (HCC); LBBB (left bundle branch block); Primary osteoarthritis of right knee; Dietary counseling; Exercise counseling; Cardiovascular event risk; Constipation by delayed colonic transit; Uses roller walker 01/11/2025 Travel 01/10/[address] [address] Alona Crane ANP Medication Question 01/10/2025 Patient Outreach [address] [address] Alona Crane ANP Care Coordination (Appointment reminder) 01/09/2025 1:00 PM EDT Clinical Support [address] [address] Nalini Blum RN Uncomplicated opioid dependence (CMS/HCC) (HCC) (Primary Dx) 01/09/[address] [address] Alona Crane ANP chart prep 01/09/2025 Travel 01/06/2025 Patient Outreach [address] [address] Alona Crane ANP Care Management (C3CM- f/u call) 01/05/2025 Orders Only GENERIC EXTERNAL DATA DEPARTMENT Provider, Generic External Data 01/03/2025 Patient Outreach [address] [address] Alona Crane ANP 01/02/[address] [address] Nalini Blum RN Opioid use disorder 01/02/2025 Patient Outreach [address] [address] Alona Crane ANP Care Coordination (Appointment reminders) 12/31/2024 Orders Only GENERIC EXTERNAL DATA DEPARTMENT Provider, Generic External Data 12/30/2024 Orders Only [facility] External Provider, [facility] 12/28/2024 Patient Outreach [address] [address] Alona Crane ANP Care Coordination (SDOH f/u -appointment reminder) 12/27/2024 Patient Outreach [address] [address] Alona Crane ANP Care Management (C3CM- f/u call) 12/19/2024 2:30 PM EDT Telemedicine [address] [address] Jacoby Donald MD Uncomplicated opioid dependence (CMS/HCC) (Primary Dx) 12/19/2024 Travel 12/14/2024 Refill [facility] [address] [place] [phone] Nalini Blum, RN Opioid use disorder 12/13/2024 Patient Outreach [address] [address] Alona Crane ANP Care Coordination (SDOH f/u) 12/13/2024 Patient Outreach [address] [address] Alona Crane ANP Care Management (C3CM- f/u call) 12/05/2024 Patient Outreach [address] [address] Alona Crane ANP 12/01/2024 Patient Outreach [address] [address] Alona Crane ANP Care Management (C3CM- f/u call) 11/30/2024 4:00 PM EDT Office Visit [facility] [address] [place] [phone] Jacoby Donald MD Pharyngitis, unspecified etiology (Primary Dx); Moderate persistent asthma without complication; Diffuse abdominal pain; Viral URI; Acute bronchitis with chronic obstructive pulmonary disease (COPD) ([facility]) ([facility]) 11/30/2024 Travel 11/29/[address] [address] Alona Crane ANP Nurse Triage 11/28/2024 1:45 PM EDT Telemedicine [address] [address] Nalini Blum, RN Uncomplicated opioid dependence (CMS/[facility]) 11/28/2024 Travel 11/28/[address] [address] Nalini Blum, RN 11/28/2024 Patient Outreach [address] [address] Alona Crane ANP Care Coordination (SDOH) 11/18/2024 Patient Outreach [address] [address] Alona Crane ANP Care Coordination (SDOH) 11/17/2024 9:00 AM EDT Office Visit [address] [address] Alona Crane ANP Bilateral leg edema (Primary Dx); Essential hypertension; Rash of foot; Acute pain of left knee 11/17/2024 Travel 11/17/2024 Patient Outreach [address] [address] Alona Crane ANP Care Coordination (SDOH f/u) 11/16/2024 Patient Outreach [address] [address] Alona Crane ANP Care Management (C3CM- f/u call) 11/14/[address] [address] Alona Crane ANP Medication Question 11/14/[address] [address] Alona Crane ANP Prepop 11/14/[address] [address] Nalini Blum RN Opioid use disorder 11/07/2024 3:15 PM EDT Clinical Support [address] [address] Nalini Blum RN Uncomplicated opioid dependence (CMS/[facility]) (Primary Dx) 11/07/2024 Travel 11/03/2024 Patient Outreach [address] [address] Alona Crane ANP Care Coordination (PT1) 11/02/2024 Plan of Care Documentation [address] [address] 11/02/2024 Patient Outreach [address] [address] Alona Crane ANP Care Management (C3CM- initial assessment/ enrollment) 11/02/2024 Patient Outreach [address] [address] Alona Crane ANP Care Coordination (SDOH) from Last 3 Months Immunizations Immunization Administration [...] Sign Reading Time Taken Comments Blood Pressure 140/77 01/20/2025 9:45 AM EDT Pulse 90 01/20/2025 9:45 AM EDT Temperature 36.8 C (98.3 F) 01/20/2025 9:45 AM EDT Respiratory Rate 18 01/20/2025 9:45 AM EDT Oxygen Saturation 95% 01/20/2025 9:45 AM EDT Inhaled Oxygen Concentration - - Weight 104 kg (230 lb) 01/20/2025 9:45 AM EDT Height 157.5 cm (5' 2 ) 01/11/2025 2:26 PM EDT Body Mass Index 42.07 01/11/2025 2:26 PM EDT Plan of Treatment Upcoming Encounters Date Type Department Care Team (Late st Contact Info) Description 02/20/2025 1:45 PM EST Office Visit [facility] [address] [place] [address] [phone] Jacoby Donald MD [address] [place] [phone] 02/21/2025 2:15 PM EST Procedure Visit [facility] [address] [place] [phone] Chelsey Mckenzie, CNM [address], [place] [phone] 03/28/2025 2:00 PM EST Office Visit [facility] [address], [place] [phone] Alona Crane, ANP [address], [place] [phone] Health Maintenance Due Date Last Done Comments CT Colonography 1965 Colonoscopy 1965 FIT 1966 Sigmoidoscopy 1965 Pap Smear 07/30/1987 Cervical Cancer Screening 1996 HPV/Cotest 1996 Pneumococcal Vaccine: 50+ Years (2 of 2 - PCV) 08/20/2015 08/19/2014 RSV Patients and Patients Aged 60 years or older (1 - Risk 50-74 years 1-dose series) 2016 Zoster Vaccines (2 of 2) 08/04/2023 06/09/2023 COVID-19 Vaccine ( season) 2024 11/01/2021, 11/01/2021, 04/12/2021, Additional history exists Influenza Vaccine (#1) 2024 , 01/09/2017, 01/24/2016, Additional history exists Lipid Panel 04/03/2025 04/03/2020 Alcohol/Substance Use Screening 05/02/2025 05/02/2024 Depression Monitoring 05/05/2025 11/02/2024, 025 FOBT 05/27/2025 05/27/2024, 11/08/2019 Mammogram 06/17/2025 06/17/2024, 04/13/2018 Diabetes: Hemoglobin A1C 07/21/2025 025, 07/04/2024, 04/03/2020 SDOH Screening 11/02/2025 11/02/2024 Disability Screening 01/11/2026 01/11/2025 Tobacco Screening 01/30/2026 01/30/2025 Colorectal Cancer Screening 05/28/2027 FIT DNA/Cologuard 05/28/2027 05/27/2024 DTaP/Tdap/Td Vaccines (3 - Td or Tdap) 08/04/2032 08/04/2022, 01/01/2010 Hepatitis A Vaccines Aged Out 06/04/2010, 04/09/19 [...] topic Meningococcal Vaccine Aged Out No fany toa eligible based on patient's age to complete this topic RSV under 20 months Aged Out No longe r eligible based on patient's age to complete this topic Rotavirus Vaccines Aged Out No longer eligible based on patient's age to complete this topic Procedures Procedure Name Priority Date/Time Associated Diagnosis Comments POCT JENNY-14 URINE DRUG SCREEN Routine 01/09/2025 1:13 PM EDT Uncomplicated opioid dependence (CMS/HCC) (HCC) MRSA NASAL SCREEN Routine 01/05/2025 12: 00 PM EDT CULTURE, URINE, ROUTINE Routine 12/31/2024 12:00 AM EDT URINALYSIS, COMPLETE, WITH REFLEX TO CULTURE Routine 12/30/2024 11:51 PM EDT HIGH SENSITIVITY TROPONIN I Routine 12/30/2024 11:[address] ABDOMEN PELVIS WO CONTRAST Routine 12/30/2024 10:35 PM EDT POCT INFLUENZA B Routine 11/30/2024 4:16 PM EDT Viral URI POCT INFLUENZA A Routine 11/30/2024 4:14 PM EDT Viral URI POCT COVID-19 AG REYNOSO ID NOW Routine 11/30/2024 4:05 PM EDT Viral URI POCT RAPID STREP A Routine 11/30/2024 4: 03 PM EDT Viral URI POCT JENNY-14 URINE DRUG SCREEN Routine 11/07/2024 3:13 PM EDT Uncomplicated opioid dependence (CMS/HCC) HEMOGLOBIN [...] Relevant to Health Maintenance Results * (ABNORMAL) POCT JENNY-14 Urine Drug Screen (01/09/2025 1:13 PM EDT) Only the most recent of2 [...] obtained by clean catch procedure / Unknown 01/09/2025 1:13 PM EDT Janeth Townsend MD POINT OF CARE TEST ENTER/MARYSOL T ORDERABLES Final Result * (ABNORMAL) MRSA Nasal Screen (01/05/2025 12:00 PM EDT) MRSA Nasal PCR NEGATIVE Negative [facility] SA Nasal PCR POSITIVE(A) Negative [facility] MRSA Interpretation SEE NOTE [facility] Comment:MRSA target DNA not detected; SA target DNA detected.A MRSA NEGATIVE, SA POSITIVE test result does not precludeMRSA nasal colonization. 01/05/2025 12:0 0 PM EDT 01/05/2025 12:45 PM EDT Generic External Data Provider LAB MICROBIOLOGY - GENERAL ORDERABLES Final Result [facility] [address] [place] [address] [phone] * Culture, Urine, Routine (12/31/2024 12:00 AM EDT) Urine Urine specimen obtained by clean catch procedure / Unknown 12/31/2024 12/31/2024 Comment:UACC Narrative [facility] - 01/01/2025 10:03 AM EDT Urine Culture Report Result Urine Culture < 10,000 cfu/ml Specimen Source: Urine clean catch Generic External Data Provider LAB MICROBIOLOGY - GENERAL ORDERABLES Final Result Performing Organization Address City/[facility] Co de Phone Number [facility] [address] [place] [phone] * (ABNORMAL) Urinalysis, Complete, with Reflex to Culture (12/30/2024 11:51 PM EDT) Color Urine Yellow [facility] Appearance Urine Cloudy [facility] PH >=9.0 5.0 - 9.0 [facility] Glucose Urine UA Negative Negative mg/dL [facility] Urine Blood Negative Negative [facility] Specific [place] - Urine 1.020 1.005 - 1.025 [facility] Urine Protein 30 (1+)(A) Neg-Trace mg/dL [facility] Urine Ketones Negative Negative mg/dL [facility] Nitrite Urine Negative Negative [facility] Leukocyte Esterase Urine Small (1+)(A) Negative [facility] RBC Urine 0-2 0 - 2 /HPF [facility] Urine WBC 6-10(A) 0 - 5 /HPF [facility] Urine Squamous Epithelial Cell 3-5 0 - 2 /HPF [facility] Urine Bacteria None Seen None Seen [facility] Hyaline Casts, Urine 0-2 0 - 2 /LPF [facility] 12/30/2024 11:5 1 PM EDT 12/30/2024 11:54 PM EDT Narrative [facility] - 12/31/2024 12:04 AM EDT [id number], Clean Catch us Generic External Data Provider LAB URINE ORDERAB LES Final Result Performing Organization Address [facility]/State/ZIP Co de Phone Number [facility] [address] [place] [phone] * High Sensitivity Troponin I (12/30/2024 11:09 PM EDT) TROPONIN I HIGH SENSITIVITY <2.7 <3.5 - 17.0 ng/L [facility] Comment:The [place] high sens itivity Troponin-I results should beused in conjunction with other diagnostic information suchas ECG, clinical observations and information, and patientsymptoms to aid in the diagnosis of DE. 12/30/2024 11:0 9 PM EDT 12/30/2024 11:15 PM EDT us Generic External Data Provider LAB BLOOD ORDERAB LES Final Result [facility] [address] [place] [phone] * CT Abdomen Pelvis w/o Contrast (12/30/2024 10:35 PM EDT) Anatomical Region Laterality Modality Body, Pelvis, Abdomen Computed T omography 12/30/2024 10:3 5 PM EDT Narrative 12/30/2024 10:36 PM EDT [address] [address] [address] Scan Report Signed Patient: Gaby Arteaga MR#: [id number] 46 : 1965 Acct:[id number] Age/Sex: 59 / F ADM Date: 12/30/24 Loc: .ED Attending Dr: Ordering Physician: Paul Bolden MD Date of Service: 12/30/24 Procedure(s): CT abdomen pelvis wo IV con Accession Number(s): [id number] cc: Paul Bolden MD; ALONA CRANE NP Report Number: [id number]: Total DLP = 849.00 mGy-cm Reason for Exam: Bilateral flank pain CLINICAL HISTORY: Bilateral flank pain CT abdomen and pelvis without contrast Comparison: CT/SR - CT ABDOMEN PELVIS W IV CON - 08/17/24 02:06 EDT Findings: LIMITED CHEST: Lung bases are clear. LIVER: No focal liver lesion. BILIARY: No gallbladder wall thickening, radiopaque stone, or ductal dilatation. PANCREAS: No mass or ductal dilatation. Diffuse parenchymal atrophy. SPLEEN: No splenomegaly. KIDNEYS: Left inferior pole 2 mm nonobstructive nephrolithiasis. No hydronephrosis. Right kidney is unremarkable. ADRENALS: No nodule. VASCULAR: No aneurysm. RETROPERITONEUM: No lymphadenopathy or mass. BOWEL/MESENTERY: No evidence of obstruction. No free fluid or air. ABDOMINAL WALL: No mass or significant abnormality. URINARY BLADDER: No focal wall thickening. PELVIC NODES: No pelvic lymphadenopathy. PELVIC ORGANS: Normal for age. BONES: No acute fracture. OTHER: Negative. IMPRESSION: Left inferior pole nonobstructive renal nephrolithiasis measuring 2 mm. No hydronephrosis. This document has been electronically signed by: Casandra Melgar MD on 12/30/2024 22:35:07 Dictated By: Casandra Melgar MD Signed By: <Electronically signed by Casandra Melgar MD in OV> 12/30/242235 DD/ 34 TD/TT: 12/30/242234 Network Architect: Procedure Note Donotuseinterpreter, Image - 12/30/[address] [place] [address] [address] Scan Report Signed Patient: Wyatt Arteaga#: [id number] 46 : 1965Acct:[id number] Age/Sex: 59 / FADM Date: 12/30/24 Loc: HO.ED Attending Dr: Ordering Physician: Paul Bolden MD Date of Service: 12/30/24 Procedure(s): CT abdomen pelvis wo IV con Accession Number(s): [id number] cc: Paul Bolden MD; ALONA CRANE NP Report Number: [id number]: Total DLP = 849.00 mGy-cm Reason for Exam: Bilateral flank pain CLINICAL HISTORY: Bilateral flank pain CT abdomen and pelvis without contrast Comparison: CT/SR - CT ABDOMEN PELVIS W IV CON - 08/17/24 02:06 EDT Findings: LIMITED CHEST: Lung bases are clear. LIVER: No focal liver lesion. BILIARY: No gallbladder wall thickening, radiopaque stone, or ductal dilatation. PANCREAS: No mass or ductal dilatation. Diffuse parenchymal atrophy. SPLEEN: No splenomegaly. KIDNEYS: Left inferior pole 2 mm nonobstructive nephrolithiasis. No hydronephrosis. Right kidney is unremarkable. ADRENALS: No nodule. VASCULAR: No aneurysm. RETROPERITONEUM: No lymphadenopathy or mass. BOWEL/MESENTERY: No evidence of obstruction. No free fluid or air. ABDOMINAL WALL: No mass or significant abnormality. URINARY BLADDER: No focal wall thickening. PELVIC NODES: No pelvic lymphadenopathy. PELVIC ORGANS: Normal for age. BONES: No acute fracture. OTHER: Negative. IMPRESSION: Left inferior pole nonobstructive renal nephrolithiasis measuring 2 mm. No hydronephrosis. This document has been electronically signed by: Casandra Melgar MD on 12/30/2024 22:35:07 Dictated By: Casandra Melgar MD Signed By: <Electronically signed by Casandra Melgar MD in OV> 12/30/242235 DD/ 34 TD/TT: 12/30/242234 Network Architect: [facility] External Provider IMG CT PROCEDURES Edited Result - Final * POCT Rapid Influenza B OSOM (11/30/2024 4:16 PM EDT) [facility] Rapid Influenza B Ag Negative Negative, Indeterminate QC Media Lot # [id number] Lot# Expiration Date Swab 11/30/2024 4:16 PM EDT Jacoby Donald MD POINT OF CARE TEST ENTER/EDIT OR DERABLES Final Result * POCT Rapid Influenza A OSOM (11/30/2024 4:14 PM EDT) [facility] Rapid Influenza A Ag Negative Negative, Indeterminate QC Media Lot # [id number] Lot# Expiration Date Swab Nasopharyngeal structure / Unknown 11/30/2024 4:14 PM EDT Result [facility] Jacoby Donald MD POINT OF CARE TEST ENTER/EDIT OR DERABLES Final Result * POCT Rapid Covid-19 REYNOSO ID NOW (11/30/2024 4:05 PM EDT) [facility] Coronavirus Antigen PCR Negative Negative, Indeterminate, None Detected, Invalid, Specimen unsatisfactory for evaluation, Weakly Positive, 2+ QC Media Lot # [id number] Lot# Expiration Date ,026 Swab 11/30/2024 4:05 PM EDT Jacoby Donald MD POINT OF CARE TEST ENTER/EDIT OR DERABLES Final Result * POCT Rapid Strep A OSOM (11/30/2024 4:03 PM EDT) [facility] Rapid Strep A Screen Negative Negative, None Detected QC Media Lot # [id number] Lot# Expiration Date Swab 11/30/2024 4:03 PM EDT us Jacoby Donald MD POINT OF CARE TEST ENTER/EDIT OR DERABLES Final Result * Hemoglobin A1c (07/21/2024 1:20 PM EDT) Hemoglobin A1c 5.8 <6.0 % [facility] Comment:Hemoglobin A1C Refer ence Range Adults: 4.8 - 6.0 % Non diabetic: < 6.0 % Goal: < 7.0 %Additional Action Suggested: > 8.0 %Note: Hemoglobin A1c results are invalid for patients with abnormal amounts of HbF. Blood transfusions may impact the HbA1c concentration in the patient sample. Estimated Average Glucose 120 mg/dL [facility] Comment:eAG = Estimated ave rage glucose which is %A1C expressed asaverage glucose, using the formula of the A7P-KnelvzcBwccjul Glucose study (ADAG), Diabetes Care, Vol.31,#8,Oct. 2007 07/21/2024 1:20 PM EDT 07/21/2024 1:20 PM EDT us Alona MOSCOSO LAB BLOOD ORDERABLES Final Resul t Performing Organization Address [facility] Co de Phone Number [facility] [address] [place] [phone] * Hepatitis C Antibody with Reflex to HCV, RNA, Quantitative, Real-Time PCR (07/04/2024 2:31 PM EDT) Hepatitis C Antibody Nonreactive Nonreactive [facility] Comment:Antibodies to HCV no t detected; does not exclude early acuteHCV infection. 07/04/2024 2:31 PM EDT 07/04/2024 4:02 PM EDT us Jacoby Donald MD LAB BLOOD ORDERABLES Final Resul t Performing Organization Address [facility] Co de Phone Number [facility] [address] [place] [address] [place] [address] [phone] * HIV-1/2 Antigen and Antibodies, Fourth Generation, with Reflexes (07/04/2024 2:31 PM EDT) HIV AB/AG Nonreactive Nonreactive [facility] Comment:HIV-1 p24 Ag and/or HIV-1/HIV-2 Ab not detected.A test result that is nonreactive does not exclude thepossibility of exposure to or infection with HIV-1 and/orHIV-2. Nonreactive results in this assay for individualswith prior exposure to HIV-1 and/or HIV-2 may be due toantigen and antibody levels that are below the limit ofdetection of this assay.The Yedda HIV Ag/Ab Combo assay result andsupplemental assay results should be interpreted inconjunction with the patient's clinical presentation,history and other laboratory results. If the results areinconsistent with clinical evidence, additional testing issuggested to confirm the result. 07/04/2024 2:31 PM EDT 07/04/2024 4:02 PM EDT us Jacoby Donald MD LAB BLOOD ORDERABLES Final Resul t [facility] [address] [place] [phone] * BI Mammogram Screening Tomosynthesis Bilateral (06/17/2024 2:15 PM EDT) Anatomical Region Laterality Modality Breast Bilateral Mammography 06/17/2024 2:15 PM EDT Narrative 06/25/2024 3:10 PM EDT [facility] [address] [place] [address] Mammography Report Signed Patient: Gayb Arteaga MR#: [id number] 46 : 1965 Acct:[id number] Age/Sex: 58 / F ADM Date: 06/17/24 Loc: [facility] Attending Dr: Alona Crane NP Ordering Physician: ALONA CRANE NP Results: 1Negative Date of Service: 06/17/24 Follow Up: 1 Year From Orig inal Mammogram Procedure(s): MM tomosynthesis screening BI Accession Number(s): [id number] cc: ALONA CRANE NP EXAMINATION: MM SCREENING [...] 06/25/24 1506 DD/ 1415 TD/TT: 06/17/24 1440 Network Architect: Procedure Note Donotuseinterpreter, Image - 06/25/2024 [facility] [address] [place] [address] Mammography Report Signed Patient: Wyatt Arteaga#: [id number] 46 : 1965Acct:[id number] Age/Sex: 58 / FADM Date: 06/17/24 Loc: MAMMO Attending Dr: Alona Crane NP Ordering Physician: ALONA CRANE NPResults: 1Negative Date of Service: 06/17/24Follow Up: 1 Year From Orig inal Mammogram Procedure(s): MM tomosynthesis screening BI Accession Number(s): [id number] cc: ALONA CRANE NP EXAMINATION: MM SCREENING [...] 06/25/24 1506 DD/ 1415 TD/TT: 06/17/24 1440 Network Architect: Alona Crane [facility] BI PROCEDURES Edited Result - Final * (ABNORMAL) Cologuard?? colon cancer screening (05/27/2024 2:49 PM EST) Cologuard Result Positive( A) Negative 06/04/2024 5:36 PM EDT [employer] (CLIA #:[id number]) Comment: POSITIVE TEST RESULT. A positive Cologuard [...] (Roverto Camargo al, N Engl J Med 2014;370(14):8980-2337.) Cologuard may produce a false negative or false positive result (no colorectal cancer or precancerous polyp present at colonoscopy follow up). A negative Cologuard test result does not guarantee the absence of CRC or advanced adenoma (pre-cancer). The current Cologuard screening interval is every 3 years. ([place] [employer] Society and U.S. Multi-Society Task Force). Cologuard performance data in a 10,000 patient pivotal study using colonoscopy as the reference method can be accessed at the following location: www.documistic/results. Additional description of the Cologuard test process, warnings and precautions can be found at www.GoSpotCheckrd.com. Stool specimen (specimen) 05/27/2024 2:49 PM EST 05/29/2024 11:29 PM EDT [facility] MOLECULAR DIAGNOSTICS ORDERA BLES Final Result [employer] (CLIA #:[id number]) [place] [address], * (ABNORMAL) LIPID PANEL, STANDARD (04/03/2020 2:27 [...] LDL-C. Faustino MCLAIN et al. NICHOLAS. 2013;310(19): 1128-2831 (http://education.VideoBurst.Silicon Cloud/faq/XYZ560) Non-HDL Cholesterol 157(H) <130 mg/dL (calc) [facility] Comment: For patients with diabetes plus 1 major ASCVD risk factor, treating to a non-HDL-C goal of <100 mg/dL (LDL-C of <70 mg/dL) is considered a therapeutic option. Triglycerides 165(H) <150 mg/dL [facility] 04/03/2020 2:27 PM EST us Syed Hardy MD LAB BLOOD ORDERABLES Final Resul t [facility] [address] from Last 3 Months or Most Recently Relevant to Health Maintenance [facility] Care Teams Data Systems Manager Relationship Specialty Start Date End Date Alona Crane ANP [address] [place] [address] PCP - General Family Medicine 02/11/22 Aldo Araiza, SIRISHA [address] [place] [address] Registered Nurse Family Medicine 10/20/24 Claudine Arnold 10/20/24 Lilian Varghese Neck Band OperatorSchool Principal 07/02/23
--- OUTSIDE RECORDS SUMMARY | 2025-02-02 08:43 | XMS_ITS | Encounter Summary ---
Author Organization [employer] Address [address] 7[address] [place] [address] Care Team Providers Care Costume Technician Name Role Phone Sosa Juani MOSCOSO Primary Care Provider [phone] Aldo Araiza RN Unavailable [phone] Claudine Arnold Unavailable Encounter Details Date Type Department Care Team (Late st Contact Info) Description 04/09/[address] [facility] [address] [place], [place] [phone] Nalini Blum, SIRISHA Uncomplicated opioid dependence (CMS/HCC) [...] 04/09/2023 10:44 AM Keyona Vasquez [place] * How difficult have these problems made it for you to do your work, take care of things at home, or get along with other people? Answer Date of Assessment Author Somewhat difficult 04/09/2023 10:44 AM Keyona Pedraza [place] * Over the last 2 weeks, [...] JESUS-7 Total Score 13 04/09/2023 10:44 AM Keoyna Vasquez [place] * Over the past 2 [...] EST Office Visit [facility] [address] [place] [address] Jacoby Donald MD [address] [place] [address] 02/21/2025 2:15 PM EST Procedure Visit [facility] [address] [place], [place] [phone] Chelsey Mckenzie, KUN [address] [place], [place] [phone] 03/28/2025 2:00 PM EST Office Visit [facility] [address] [place], [place] [phone] Juani Sosa, ANP [address] [place], [place] [phone] Scheduled Orders Name Type Priority Associated Diagnoses [...] as of this encounter Care Teams Costume Technician Relationship Specialty Start Date End Date Juani Sosa ANP [address] [place] [address] PCP - General Family Medicine 02/11/22 Aldo Araiza, SIRISHA [address] [place] [address] Registered Nurse Family Medicine 10/20/24 Claudine Arnold 10/20/24 Lilian Varghese Manager MissionBand Instrument Repairer 07/02/23 documented as of this encounter
--- OUTSIDE RECORDS SUMMARY | 2025-02-02 08:43 | XMS_ITS ---
Author Organization [employer] Address [address] [place] [address] 7t [place] [address] Care Team Providers Care Anchor Tack Puller Name Role Phone Juani Sosa Primary Care Provider [phone] Aldo Araiza RN Unavailable [phone] Claudine Arnold Unavailable [facility] Status:Enrolled (Active) Start date:10/20/2024 Enrollment date:11/02/2024 Enrollment reason:ADT Feed Overview ED- Pt went to [facility] ED on 10/19/24. Please outreach for enrollment. Case Team Name Relationship Phone Claudine Arnold(Responsible Staff) [phone] Continued Care and Services Coordination
--- OUTSIDE RECORDS SUMMARY | 2025-02-02 08:43 | XMS_ITS | Encounter Summary ---
Author Organization [employer] Address [address] 7t [place] [address] Care Team Providers Care Seam Stay Stitcher Name Role Phone Juani Sosa Primary Care Provider [phone] Aldo Araiza RN Unavailable [phone] Claudine Arnold Unavailable Reason for Visit * Reason Comments Med Change Request Encounter Details Date Type Department Care Team ([facility] Contact Info) Description 01/13/[address] [facility] [address] [place], [place] [phone] Jacoby Donald MD [address] [place], [place] [phone] Social History Tobacco Use Types Packs/Day Years [...] Description 02/20/2025 1:45 PM EST Office Visit [address] [address] Jacoby Donald MD [address] [place] [address] 02/21/2025 2:15 PM EST Procedure Visit [address] [address] Chelsey Mckenzie CNM [address] [place] [address] 03/28/2025 2:00 PM EST Office Visit [address] [address] Juani Sosa ANP [address] [place] [address] documented as of this encounter Visit Diagnoses Not on filedocumented in this encounter Additional Health Concerns Assessment Noted Time PHQ-9 Depression Total Score: 16 023 9:58 AM EDT documented as of this encounter Care Teams Seam Stay Stitcher Relationship Specialty Start Date End Date Juani Sosa ANP [address] [place] [address] PCP - General Family Medicine 02/11/22 Aldo Araiza, RN [address] [place] [address] [place] [phone] Registered Nurse Family Medicine 10/20/24 Claudine Arnold 10/20/24 Lilian Varghese Slider AssemblerExtraction Machine Operator 07/02/23 documented as of this encounter
--- OUTSIDE RECORDS SUMMARY | 2025-02-02 08:43 | XMS_ITS | Encounter Summary ---
Author Organization [employer] Address [address] [facility] 7t [place] [address] Care Team Providers Care Asthma Educator Name Role Phone Juani Sosa Primary Care Provider [phone] Aldo Araiza RN Unavailable [phone] Claudine Arnold Unavailable Reason for Visit * Reason Onset Date Comments ER Follow-up 11/10/2023 Encounter Details Date Type Department Care Team ([facility] st Contact Info) Description 11/10/2023 Telephone [facility] [address] [place], [place] [phone] Juani Sosa ANP 230 [place], [place] [phone] ER Follow-up Social History Tobacco Use Types [...] ED visit on : Date: 11/09/23 Hospital: [facility] Seen for: Chest Pain, breathing trouble, and Leg swelling. Patient advised will forward to team nurse for follow up documented in this encounter Plan of Treatment Upcoming Encounters Date Type Department Care Team (Late st Contact Info) Description 02/20/2025 1:45 PM EST Office Visit [facility] [address] [place] [address] Jacoby Donald MD [address] [place] [address] 02/21/2025 2:15 PM EST Procedure Visit [facility] [address] [place] [address] Chelsey Mckenzie CNM [address] [place] [address] 03/28/2025 2:00 PM EST Office Visit [address] [address] Juani Sosa ANP [address] [place] [address] documented as of this encounter Visit Diagnoses Not on filedocumented in this encounter Additional Health Concerns Assessment Noted Time PHQ-9 Depression Total Score: 9 10/06/19 24 11:29 AM EDT documented as of this encounter Care Teams Asthma Educator Relationship Specialty Start Date End Date Juani Sosa ANP [address] [place] [address] PCP - General Family Medicine 02/11/22 Aldo Araiza RN [address] [place] [address] Registered Nurse Family Medicine 10/20/24 Claudine Arnold 10/20/24 Lilian Varghese Composing Room SupervisorExtension Work Director 07/02/23 documented as of this encounter
--- OUTSIDE RECORDS SUMMARY | 2025-02-02 08:43 | XMS_ITS | Encounter Summary ---
Author Organization [email or web address] Address [address] [facility] 7t [place] [address] Care Team Providers Care Edge Runner Name Role Phone Juani Sosa Primary Care Provider Aldo Araiza RN Unavailable Claudine Arnold Unavailable Reason for Visit * Reason Onset Date Comments Pre op 04/13/2023 Encounter Details Date Type Department Care Team ([facility] st Contact Info) Description 04/13/2023 Telephone [facility] [address] [place], [place] [phone] Juani Sosa ANP [address] [place], [place] [phone] Pre op Social History Tobacco Use Types [...] Surgeon's name: Dr Tim Mcdermott [place] [facility] [place]geon's office number: [phone] Surgeon's office fax number: [phone] Contact name (person you spoke with): Ngoc from [facility] office Last office note from surgeon requested: no documented in this encounter Plan of Treatment Upcoming Encounters Date Type Department Care Team (Late st Contact Info) Description 02/20/2025 1:45 PM EST Office Visit [facility] [address] [place] [address] Jacoby Donald MD [address] [place] [address] 02/21/2025 2:15 PM EST Procedure Visit [facility] [address] [place] [address] Chelsey Mckenzie CNM 230 [place], [place] [phone] 03/28/2025 2:00 PM EST Office Visit [facility] [address] [place], [place] [phone] Juani Sosa ANP [address] [place], [place] [phone] documented as of this encounter Visit Diagnoses Not on filedocumented in this encounter Additional Health Concerns Assessment Noted Time PHQ-9 Depression Total Score: 14 024 10:44 AM EST documented as of this encounter Care Teams Edge Runner Relationship Specialty Start Date End Date Juani Sosa ANP [address] [place], [place] [phone] PCP - General Family Medicine 02/11/22 Aldo Araiza, SIRISHA [address] [place] [address] Registered Nurse Family Medicine 10/20/24 Claudine Arnold 10/20/24 Lilain Varghese Winery WorkerJunior Copywriter 07/02/23 documented as of this encounter
--- OUTSIDE RECORDS SUMMARY | 2025-02-02 08:43 | XMS_ITS | Encounter Summary ---
Author Organization [employer] Address [address] 7[address] [place] [address] Care Team Providers Care Sugar Chipper Machine Operator Name Role Phone Juani Sosa Primary Care Provider [phone] Aldo Araiza RN Unavailable [phone] Claudine Arnold Unavailable Reason for Visit * Reason Comments Med Change Request Encounter Details Date Type Department Care Team (Late st Contact Info) Description 08/05/2023 Refill [facility] [address] [place] [address] Leeanne Mandel FNP Moderate persistent asthma with [...] Description 02/20/2025 1:45 PM EST Office Visit [facility] [address] [place] [address] Jacoby Donald MD [address] [place] [address] 02/21/2025 2:15 PM EST Procedure Visit [address] [address] Chelsey Mckenzie CNM [address] [place] [address] 03/28/2025 2:00 PM EST Office Visit [facility] [address] [place] [address] Juani Sosa ANP [address] [place] [address] documented as of this encounter Visit Diagnoses Diagnosis Moderate persistent asthma with acute exacerbation documented in this encounter Additional Health Concerns Assessment Noted Time PHQ-9 Depression Total Score: 10 04/28/ 024 10:06 AM EST documented as of this encounter Care Teams Sugar Chipper Machine Operator Relationship Specialty Start Date End Date Juani Sosa ANP [address] [place] [address] PCP - General Family Medicine 02/11/22 Aldo Araiza RN [address] [place] [address] Registered Nurse Family Medicine 10/20/24 Claudine Arnold 10/20/24 Lilian Varghese Ear Nose Throat PhysicianFraming Consultant 07/02/23 documented as of this encounter
== END 2025-02-02 08:37 | disposition home or self-care (01) ==
LOC: HO.HOS 08:23
PROVIDERS: PCP Nurse Practitioner Primary Care; Visit Provider Orthopaedic Surgery
DX: M17.11 Unilateral primary osteoarthritis, right knee (principal)
CPT/HCPCS: 99024

== ENCOUNTER 2025-02-06 07:05 | Day surgery (SDC) | payer MEDICAID, SELFPAY ==
--- OUTSIDE RECORDS SUMMARY | 2024-12-07 17:56 | XMS_ITS | Encounter Summary ---
Author Organization [employer] Address [address] [facility] [address] 7t [place] [address] Care Team Providers Care Etl Application Developer Name Role Phone Juani Sosa Primary Care Provider [phone] Aldo Araiza RN Unavailable [phone] Claudine Arnold Unavailable Reason for Visit * Reason Comments Med Change Request Encounter Details Date Type Department Care Team (Late st Contact Info) Description 08/05/2023 Refill [facility] 230 [place] [address] Leeanne Mandel FNP Moderate persistent asthma with [...] Care Team (Late st Contact Info) Description 12/19/2024 2:30 PM EDT Office Visit [facility] [address] [place] [address] Jacoby Donald MD 230 [place] [address] 12/29/2024 1:45 PM EDT Procedure Visit [address] [address] Chelsey Mckenzie CNM 230 [place] [address] 01/11/2025 2:30 PM EDT Office Visit [facility] [address] [place] [address] Juani Sosa ANP 230 [place] [address] documented as of this encounter Visit Diagnoses Diagnosis Moderate persistent asthma with acute exacerbation documented in this encounter Additional Health Concerns Assessment Noted Time PHQ-9 Depression Total Score: 10 024 10:06 AM EST documented as of this encounter Care Teams Etl Application Developer Relationship Specialty Start Date End Date Juani Sosa ANP 230 [place] [address] PCP - General Family Medicine 02/11/22 Aldo Araiza RN [address] [place] [address] Registered Nurse Family Medicine 10/20/24 Claudine Arnold 10/20/24 Lilian Varghese Pest ControllerDriller Operator 07/02/23 documented as of this encounter
--- OUTSIDE RECORDS SUMMARY | 2024-12-07 17:56 | XMS_ITS | Encounter Summary ---
Author Organization [employer] Address [address] [facility] 7t [place] [address] Care Team Providers Care Accredited Pharmacy Technician Name Role Phone Juani Sosa Primary Care Provider [phone] Aldo Araiza RN Unavailable [phone] Claudine Arnold Unavailable Reason for Visit * Reason Comments Med Refill Encounter Details Date Type Department Care Team (Late st Contact Info) Description 10/17/2024 Refill [facility] 230 [place], [place] [phone] Juani Sosa ANP 230 [place] [address] Moderate persistent asthma without complication Social History Tobacco Use Types Packs/Day Years [...] Description 12/19/2024 2:30 PM EDT Office Visit [facility] [address] [place] [address] Jacoby Donald MD [address] [place] [address] 12/29/2024 1:45 PM EDT Procedure Visit [facility] [address] [place] [address] Chelsey Mckenzie CNM [address] [place] [address] 01/11/2025 2:30 PM EDT Office Visit [facility] [address] [place] [address] Juani Sosa ANP 230 [place] [address] documented as of this encounter Visit Diagnoses Diagnosis Moderate persistent asthma without complication documented in this encounter Additional Health Concerns Assessment Noted Time PHQ-9 Depression Total Score: 16 05/17/ 025 11:09 AM EST documented as of this encounter Care Teams Accredited Pharmacy Technician Relationship Specialty Start Date End Date Juani Sosa ANP 230 [place] [address] PCP - General Family Medicine 02/11/22 Aldo Araiza RN [address] [place] [address] Registered Nurse Family Medicine 10/20/24 Claudine Arnold 10/20/24 Lilian Varghese Special Education AssociateSenior Test Analyst 07/02/23 documented as of this encounter
--- OUTSIDE RECORDS SUMMARY | 2024-12-07 17:56 | XMS_ITS | Encounter Summary ---
Author Organization Located Within [facility] Address [address] [facility] [address] [place] [address] Phone Care Team Providers Care Lawn Care Technician Name Role Phone Unknown, Unknown Primary Care Provider Ramesh ramos Encounter Details Date Type Department Care Team (Latest Contact Info) Description 08/31/2017 Ancillary Orders [facility] [address] [place] [address] [place] [address] Sabina Barr MD [address] [place] [address] Other coma depth, unspecified coma timing Social History Tobacco Use Types Packs/Day Years Used Date Smoking Tobacco: Never Assessed Comments Unknown Sex and Gender Information Value Date Recorded Sex Assigned at Not on file Legal Sex Female 12:36 PM EDT Gender Identity Not on file Sexual Orientation Not on file documented as of this encounter Plan of Treatment Not on file documented as of this encounter Results * Holter Monitor 24 Hours (08/31/2017 4:34 PM EDT) Anatomical Region Laterality Modality Heart Other Narrative 08/31/2017 5:04 PM EDT 24-hour monitor: Patient reported shortness of breath at 3 AM. Baseline rhythm is sinus with a minimum heart rate 58 maximum 177 average 87 bpm. No long pauses occurred. There were rare PACs and PVCs present. Shortness of breath occurred during sinus rhythm at 71 bpm. Impression: Normal 24-hour monitor. Symptoms during sinus rhythm. us Sabina Barr MD CV CARDIAC SERVI SACHIN ORDERABLES Final Result documented in this encounter Visit Diagnoses Diagnosis Other coma depth, unspecified coma timing documented in this encounter Care Teams Lawn Care Technician Relationship Specialty Start Date End Date Unknown, Unknown, MD PCP - General 08/28/17 documented as of this encounter Additional Source Comments The information contained in this document represents components of the legal health record. It is not the complete legal health record.[facility]
--- OUTSIDE RECORDS SUMMARY | 2024-12-07 17:56 | XMS_ITS | Encounter Summary ---
Author Organization [employer] Address [address] [facility] 7t [place] [address] Care Team Providers Care Print Graphic Designer Name Role Phone Juani Sosa Primary Care Provider [phone] Aldo Araiza RN Unavailable [phone] Claudine Arnold Unavailable Reason for Visit * Reason Onset Date Comments Med Refill 07/18/2024 Encounter Details Date Type Department Care Team (Late st Contact Info) Description 07/18/2024 Telephone [facility] 230 [place], [place] [phone] Juani Sosa ANP 230 [place], [place] [phone] Med Refill Social History Tobacco Use Types [...] AM EDT Medications requested were sent to [facility] on 05/02/24 90 day supply and Aspirin not prescribedby PCP. * Telephone Encounter - Sean Arnold - 07/18/2024 11:11 AM EDT TC from pt requesting medication refill. Medications needing refill: albuterol (ProAir HFA) 108 (90 Base) MCG/ACT inhaler Aspirin Low Dose 81 MG EC tablet hydroCHLOROthiazide (HYDRODiuril) 25 MG tablet omeprazole (PriLOSEC) [address] capsule To be sent to: [facility] - [place], [place] - [address] [facility] documented in this encounter Plan of Treatment Upcoming Encounters Date Type Department Care Team (Late st Contact Info) Description 12/19/2024 2:30 PM EDT Office Visit [address] [address] Jacoby Donald MD 230 [place] [address] 12/29/2024 1:45 PM EDT Procedure Visit [address] [address] Chelsey Mckenzie CNM 230 [place] [address] 01/11/2025 2:30 PM EDT Office Visit [address] [address] Juani Sosa ANP 230 [place] [address] documented as of this encounter Visit Diagnoses Not on filedocumented in this encounter Additional Health Concerns Assessment Noted Time PHQ-9 Depression Total Score: 16 025 11:09 AM EST documented as of this encounter Care Teams Print Graphic Designer Relationship Specialty Start Date End Date Juani Sosa ANP 230 [place] [address] PCP - General Family Medicine 02/11/22 Aldo Araiza, SIRISHA 505 [place] [address] Registered Nurse Family Medicine 10/20/24 Claudine Arnold 10/20/24 Lilian Varghese Leaf BinnerIt Infrastructure Architect 07/02/23 documented as of this encounter
--- OUTSIDE RECORDS SUMMARY | 2024-12-07 17:56 | XMS_ITS ---
Author Organization [employer] Address [address] [place] [address] 7t [place] [address] Care Team Providers Care Cognos Consultant Name Role Phone Juani Sosa Primary Care Provider [phone] Aldo Araiza RN Unavailable [phone] Claudine Arnold Unavailable CM Complex Status:Enrolled (Active) Start date:10/20/2024 Enrollment date:11/02/2024 Enrollment reason:ADT Feed Overview ED- Pt went to [facility] ED on 10/19/24. Case Team Name Relationship Phone Aldo Araiza RN(Responsible Staff) Registered Nurse [phone] Continued Care and Services Coordination
--- OUTSIDE RECORDS SUMMARY | 2024-12-07 17:56 | XMS_ITS | Encounter Summary ---
Author Organization [employer] Address [address] [facility] 7t [place] [address] Care Team Providers Care Rumper Name Role Phone Juani Sosa Primary Care Provider [phone] Aldo Araiza RN Unavailable [phone] Claudine Arnold Unavailable Encounter Details Date Type Department Care Team ([facility] st Contact Info) Description 12/05/2024 Patient Outreach [facility] 230 [place], [place] [phone] Juani Sosa ANP 230 [place] [address] Social History Tobacco Use Types Packs/Day Years [...] Answer Date Recorded Patient Health Questionnaire-9 Score 15 11/02/2024 Patient Health Questionnaire-9 Score 15 11/02/2024 Last PHQ-9: Questionnaire Data Not on file 0 11/02/2024 Housing Stability Answer Date Recorded What is [...] Date Recorded Patient Health Questionnaire-2 Score 4 11/02/2024 Internet Access Answer Date Recorded Internet Access Q1 Yes 11/02/2024 Internet Access Q2 I do not want or need it 10/21 Comments Unknown Sex and Gender Information Value [...] Description 12/19/2024 2:30 PM EDT Office Visit [facility] [address] [place] [address] Jacoby Donald MD [address] [place] [address] 12/29/2024 1:45 PM EDT Procedure Visit [facility] [address] [place] [address] Chelsey Mckenzie CNM 230 [place] [address] 01/11/2025 2:30 PM EDT Office Visit [facility] [address] [place] [address] Juani Sosa ANP 230 [place] [address] documented as of this encounter Visit Diagnoses Not on filedocumented in this encounter Additional Health Concerns Assessment Noted Time PHQ-9 Depression Total Score: 15 025 1:15 PM EDT documented as of this encounter Care Teams Rumper Relationship Specialty Start Date End Date Juani Sosa ANP 230 [place] [address] PCP - General Family Medicine 02/11/22 Aldo Araiza, SIRISHA [address] [place] [address] Registered Nurse Family Medicine 10/20/24 Claudine Arnold 10/20/24 Lilian Varghese Stopperer AssemblerElevator Conductor 07/02/23 documented as of this encounter
--- OUTSIDE RECORDS SUMMARY | 2024-12-07 17:56 | XMS_ITS | Encounter Summary ---
Author Organization [employer] Address [address] [facility] [address] 7t [place] [address] Care Team Providers Care Circular Knitter Name Role Phone Ian Juani MOSCOSO Primary Care Provider [phone] Aldo Araiza RN Unavailable [phone] Claudine Arnold Unavailable Reason for Visit * Reason Onset Date Comments Med Refill Appointment 09/10/2023 - [facility] Encounter Details Date Type Department Care Team (Late st Contact Info) Description 09/10/2023 Refill [facility] [address] [place] [address] Rafael Shahid FNP Social History Tobacco Use [...] prescriber. Abhi-schedule an apt for 10/06/23 as [id number] documented in this encounter Plan of Treatment Upcoming Encounters Date Type Department Care Team (Late st Contact Info) Description 12/19/2024 2:30 PM EDT Office Visit [facility] [address] [place] [address] Jacoby Donald MD [address] [place] [address] 12/29/2024 1:45 PM EDT Procedure Visit [facility] [address] [place] [address] Chelsey Mckenzie CNM [address] [place] [address] 01/11/2025 2:30 PM EDT Office Visit [facility] [address] [place] [address] Juani Sosa ANP 230 [place] [address] documented as of this encounter Visit Diagnoses Not on filedocumented in this encounter Additional Health Concerns Assessment Noted Time PHQ-9 Depression Total Score: 10 024 10:06 AM EST documented as of this encounter Care Teams Circular Knitter Relationship Specialty Start Date End Date Juani Sosa ANP 230 [place] [address] PCP - General Family Medicine 02/11/22 Aldo Araiza RN [address] [place] [address] Registered Nurse Family Medicine 10/20/24 Claudine Arnold 10/20/24 Lilian Varghese Heart SpecialistTube Machine Operator Helper 07/02/23 documented as of this encounter
--- OUTSIDE RECORDS SUMMARY | 2024-12-07 17:56 | XMS_ITS ---
Author Organization [employer] Address [address] [place] [address] 7t [place] [address] Care Team Providers Care Milk Tester Name Role Phone Juani Sosa Primary Care Provider [phone] Aldo Araiza RN Unavailable [phone] Claudine Arnold Unavailable CHW Complex Status:Enrolled (Active) Start date:10/20/2024 Enrollment date:11/02/2024 Enrollment reason:ADT Feed Overview ED- Pt went to [facility] ED on 10/19/24. Please outreach for enrollment. Case Team Name Relationship Phone Claudine Arnold(Responsible Staff) [phone] Continued Care and Services Coordination
--- OUTSIDE RECORDS SUMMARY | 2024-12-07 17:56 | XMS_ITS | Clinical Summary ---
Author Organization [facility] Address [address] [facility] [address] [place] [address] Phone Care Team Providers Care Trailer Sections Assembler Name Role Phone Unknown, Unknown Primary Care [...] 2016 ZOSTER VACCINES (1 of 2) 2016 INFLUENZA VACCINE (#1) 2024 COVID-19 VACCINE (2 - 2024-2 6 season) 2024 07/24/2020 COLORECTAL CANCER SCREENING Completed HEPATITIS A [...] ACO [facility] [place] [address] [place] [address] C3 ACO Care Teams Trailer Sections Assembler Relationship Specialty Start Date End Date Unknown, Unknown, PCP - General 08/28/17 Additional Source Comments The information contained in this document represents components of the legal health record. It is not the complete legal health record.[facility]
--- OUTSIDE RECORDS SUMMARY | 2024-12-07 17:57 | XMS_ITS | Encounter Summary ---
Author Organization [employer] Address [address] [facility] 7t [place] [address] Care Team Providers Care Paratransit Operator Name Role Phone Juani Sosa Primary Care Provider [phone] Aldo Araiza RN Unavailable [phone] Claudine Arnold Unavailable Reason for Visit * Reason Onset Date Comments Pre op 04/13/2023 Encounter Details Date Type Department Care Team ([facility] st Contact Info) Description 04/13/2023 Telephone [facility] 230 [place], [place] [phone] Juani Sosa ANP 230 [place], [place] [phone] Pre op Social History Tobacco Use Types [...] Surgeon's name: Dr Tim Mcdermott Facility name: [facility] Ortho Surgeon's office number: [phone] Surgeon's office fax number: [phone] Contact name (person you spoke with): Ngoc from [facility] Last office note from surgeon requested: no documented in this encounter Plan of Treatment Upcoming Encounters Date Type Department Care Team (Late st Contact Info) Description 12/19/2024 2:30 PM EDT Office Visit [facility] [address] [place] [address] Jacoby Donald MD 230 [place] [address] 12/29/2024 1:45 PM EDT Procedure Visit [facility] [address] [place] [address] Chelsey Mckenzie CNM 230 [place], [place] [phone] 01/11/2025 2:30 PM EDT Office Visit [facility] 230 [place], [place] [phone] Juani Sosa ANP 230 [place], [place] [phone] documented as of this encounter Visit Diagnoses Not on filedocumented in this encounter Additional Health Concerns Assessment Noted Time PHQ-9 Depression Total Score: 14 024 10:44 AM EST documented as of this encounter Care Teams Paratransit Operator Relationship Specialty Start Date End Date Juani Sosa ANP 230 [place], [place] [phone] PCP - General Family Medicine 02/11/22 Aldo Araiza RN [address] [place] [address] Registered Nurse Family Medicine 10/20/24 Claudine Arnold 10/20/24 Lilian Varghese Forwarder OperatorElectronic Device Monitor 07/02/23 documented as of this encounter
--- OUTSIDE RECORDS SUMMARY | 2024-12-07 17:57 | XMS_ITS | Encounter Summary ---
Author Organization [employer] Address [address] [facility] [address] 7t [place] [address] Care Team Providers Care Event Staff Name Role Phone Juani Sosa Primary Care Provider [phone] Aldo Araiza RN Unavailable [phone] Claudine Arnold Unavailable Encounter Details Date Type Department Care Team (Late st Contact Info) Description 08/07/2023 Orders Only [facility] 230 [place] [address] Leeanne Mandel FNP Social History Tobacco Use [...] Description 12/19/2024 2:30 PM EDT Office Visit [facility] [address] [place] [address] Jacoby Donald MD [address] [place] [address] 12/29/2024 1:45 PM EDT Procedure Visit [address] [address] Chelsey Mckenzie CNM [address] [place] [address] 01/11/2025 2:30 PM EDT Office Visit [address] [address] Juani Sosa ANP [address] [place] [address] documented as of this encounter Visit Diagnoses Not on filedocumented in this encounter Additional Health Concerns Assessment Noted Time PHQ-9 Depression Total Score: 10 024 10:06 AM EST documented as of this encounter Care Teams Event Staff Relationship Specialty Start Date End Date Juani Sosa ANP [address] [place] [address] PCP - General Family Medicine 02/11/22 Aldo Araiza, RN [address] [place] [address] Registered Nurse Family Medicine 10/20/24 Claudine Arnold 10/20/24 Lilian Varghese Mud MixerThermal Molder 07/02/23 documented as of this encounter
--- OUTSIDE RECORDS SUMMARY | 2024-12-07 17:57 | XMS_ITS | Encounter Summary ---
Author Organization [employer] Address 75 [facility] 7t [place] [address] Care Team Providers Care Software Project Lead Name Role Phone Juani Sosa Primary Care Provider Aldo Araiza RN Unavailable [phone] Claudine Arnold Unavailable Reason for Visit * Reason Onset Date Comments ER Follow-up 11/10/2023 Encounter Details Date Type Department Care Team ([facility] st Contact Info) Description 11/10/2023 Telephone [facility] 230 [place], [place] [phone] Juani Sosa ANP 230 [place], [place] [phone] ER Follow-up Social History Tobacco Use Types [...] ED visit on : Date: 11/09/23 Hospital: [facility] Seen for: Chest Pain, breathing trouble, and Leg swelling. Patient advised will forward to team nurse for follow up documented in this encounter Plan of Treatment Upcoming Encounters Date Type Department Care Team (Late st Contact Info) Description 12/19/2024 2:30 PM EDT Office Visit [facility] [address] [place] [address] Jacoby Donald MD 230 [place] [address] 12/29/2024 1:45 PM EDT Procedure Visit [facility] [address] [place] [address] Chelsey Mckenzie CNM [address] [place] [address] 01/11/2025 2:30 PM EDT Office Visit [facility] [address] [place] [address] Juani Sosa ANP 230 [place] [address] documented as of this encounter Visit Diagnoses Not on filedocumented in this encounter Additional Health Concerns Assessment Noted Time PHQ-9 Depression Total Score: 9 10/06/19 24 11:29 AM EDT documented as of this encounter Care Teams Software Project Lead Relationship Specialty Start Date End Date Juani Sosa ANP 230 [place] [address] PCP - General Family Medicine 02/11/22 Aldo Araiza RN [address] [place] [address] Registered Nurse Family Medicine 10/20/24 Claudine Arnold 10/20/24 Lilian Varghese Brick WasherGame Protector 07/02/23 documented as of this encounter
--- OUTSIDE RECORDS SUMMARY | 2024-12-07 17:57 | XMS_ITS | Encounter Summary ---
Author Organization [employer] Address [address] [facility] [address] 7t [place] [address] Care Team Providers Care Chairman President And Chief Executive Officer Name Role Phone Juani Sosa Primary Care Provider [phone] Aldo Araiza RN Unavailable [phone] Claudine Arnold Unavailable Reason for Visit * Reason Onset Date Comments Durable Medical Equipment 02/17/2023 Edvin Encounter Details Date Type Department Care Team ([facility] st Contact Info) Description 02/17/2023 Telephone [facility] MEDICINE 230 [place], [place] [phone] Juani Sosa ANP 230 [place] [address] Durable Medical Equipment (Walker) Social History Tobacco [...] Walker states requested back in November however hand sign writer does not see it on patients chart. documented in this encounter Plan of Treatment Upcoming Encounters Date Type Department Care Team (Late st Contact Info) Description 12/19/2024 2:30 PM EDT Office Visit [facility] [address] [place] [address] Jacoby Donald MD 230 [place] [address] 12/29/2024 1:45 PM EDT Procedure Visit [facility] [address] [place] [address] Chelsey Mckenzie CNM 230 [place] [address] 01/11/2025 2:30 PM EDT Office Visit [facility] 230 [place] [address] Juani Sosa ANP 230 [place], [place] [phone] documented as of this encounter Visit Diagnoses Not on filedocumented in this encounter Additional Health Concerns Assessment Noted Time PHQ-9 Depression Total Score: 16 023 9:58 AM EDT documented as of this encounter Care Teams Chairman President And Chief Executive Officer Relationship Specialty Start Date End Date Juani Sosa ANP 230 [place] [address] PCP - General Family Medicine 02/11/22 Aldo Araiza, SIRISHA [address] [place] [address] Registered Nurse Family Medicine 10/20/24 Claudine Arnold 10/20/24 Lilian Varghese Esthetician/OwnerTravel Counselor [employer] 07/02/23 documented as of this encounter
--- OUTSIDE RECORDS SUMMARY | 2024-12-07 17:57 | XMS_ITS | Encounter Summary ---
Author Organization [employer] Address [address] [place] [address] Care Team Providers Care Inverter And Clipper Name Role Phone Juani Sosa Primary Care Provider [phone] Aldo Araiza RN Unavailable [phone] Claudine Arnold Unavailable Reason for Visit * Reason Comments Med Change Request Encounter Details Date Type Department Care Team ([facility] Contact Info) Description 01/13/2023 Refill [facility] [address] [place], [place] [phone] Jacoby Donald MD [address] [place], [place] [phone] Social History Tobacco Use Types Packs/Day Years [...] Description 12/19/2024 2:30 PM EDT Office Visit [address] [address] Jacoby Donald MD [address] [place] [phone] 12/29/2024 1:45 PM EDT Procedure Visit [address] [address] Chelsey Mckenzie CNM [address] [place] [phone] 01/11/2025 2:30 PM EDT Office Visit [address] [address] Juani Sosa ANP [address] [place] [phone] documented as of this encounter Visit Diagnoses Not on filedocumented in this encounter Additional Health Concerns Assessment Noted Time PHQ-9 Depression Total Score: 16 023 9:58 AM EDT documented as of this encounter Care Teams Inverter And Clipper Relationship Specialty Start Date End Date Juani Sosa ANP [address] [place] [phone] PCP - General Family Medicine 11/22/22 Aldo Araiza, RN [address] [place] [phone] Registered Nurse Family Medicine 10/20/24 Claudine Arnold 10/20/24 Lilian Varghese Delivery EngineerMortgage Processor 07/02/23 documented as of this encounter
--- OUTSIDE RECORDS SUMMARY | 2024-12-07 17:57 | XMS_ITS | Clinical Summary ---
Author Organization [employer] Address [address] [place] [address] Care Team Providers Care Back Shoe Worker Name Role Phone Ian Alona MOSCOSO Primary Care Provider [phone] Aldo Araiza RN Unavailable Claudine Arnold Unavailable Allergies Active Allergy Reactions Criticality Noted Date Comments Hydroxyzine High 06/19/2023 Other Reaction(s): reports redness and swelling Lisinopril Angioedema 09/21/2020 Medications * This document [...] CHECK BLOOD PRESSURE TWICE DAILY 023 Active Spacer/Aero-Holdi ng Chambers deviceIndications :Moderate persistent asthma with exacerbation Use with albuterol 1 each 024 Active Aspirin Low Dose 81 MG [...] to 10 days. 30 tablet 024 Active senna-docusate sodium (Senokot-S) 8.6-50 MG tabletIndications :Constipation by delayed colonic transit Take 1-2 tabs once daily as needed for constipation 90 tablet 3 024 Active buprenorphine-nal oxone (Suboxone) 4-1 MG per sublingual filmIndications:O pioid type dependence, continuous (CMS/HCC) Place 1 Film under the tongue Once per day for 14 days. 14 Film 024 Active fluticasone (Flonase) 50 MCG/ACT nasal sprayIndications: Non-seasonal allergic rhinitis due to other allergic trigger [place] 2 sprays into each nostril every day as needed 48 mL 024 Active omeprazole (PriLOSEC) [address] capsuleIndication s:Epigastric pain TAKE 1 CAPSULE BY MOUTH DAILY BEFORE BREAKFAST. DO NOT BREAK, CRUSH, DISSOLVE OR CHEW 90 capsule 1 025 Active fluticasone furoate (Arnuity Ellipta) 200 MCG/ACT inhalerIndication s:Moderate persistent asthma without complication Inhale 1 puff Once per day. Rinse mouth with water after use to reduce aftertaste and incidence of candidiasis. Do not swallow. 30 each 11 025 Active hydroCHLOROthiazi de (HYDRODiuril) 25 MG tabletIndications :Bilateral leg edema,Essential hypertension Take 1 tablet (25 mg) by mouth Once per day. 90 tablet 025 2025 Active cetirizine (ZyrTEC) 10 MG tabletIndications :Nasal congestion TAKE 1 TABLET BY MOUTH EVERY DAY 90 tablet 1 025 Active Buprenorphine HCl-Naloxone HCl (Suboxone) 8-2 MG SL filmIndications:O pioid use disorder Place 1 Film under the tongue 3 times daily for 21 days. 63 Film 025 Active triamcinolone (Kenalog) 0.1 % creamIndications: Rash of foot Apply topically 2 times daily. Call clinic if no improvement in 2 weeks 45 g Active diclofenac (Cataflam) 50 MG tabletIndications :Acute pain of left knee Take 1 tab up to twice daily for pain, take with food 10 tablet Active albuterol (ProAir HFA) 108 (90 Base) MCG/ACT inhalerIndication s:Moderate persistent asthma without complication Inhale 2 puffs every 4 (four) hours if needed for shortness of breath or wheezing. 18 g 3 Active azithromycin (Zithromax Z-Santino) 250 MG tablet Take 2 tablets once on day 1, then 1 tablet 1x/day for 4 days. 6 tablet Active triamcinolone (Kenalog) 0.1 % creamIndications: Rash of foot Apply topically 2 times daily. Call clinic if no improvement in 2 weeks 45 g 024 2024 Discontinued(R eorder (will not trigger notification to Pharmacy)) isosorbide mononitrate ER (Imdur) 30 MG 24 hr tablet Take 30 mg by mouth Once per day. 024 2024 Discontinued(T herapy completed) naloxone (Narcan) 4 mg/0.1 mL nasal spray Administer 1 spray (4 mg) into affected nostril(s) if needed for opioid reversal. May repeat every 2-3 minutes if needed, alternating nostrils, until medical assistance becomes available. 2 each 2 024 2024 albuterol (ProAir HFA) 108 (90 Base) MCG/ACT inhalerIndication s:Moderate persistent asthma without complication Inhale 2 puffs every 4 (four) hours if needed for shortness of breath or wheezing. 18 g 2 025 2024 Discontinued(R eorder (will not trigger notification to Pharmacy)) Diclofenac Sodium 1 % gelIndications:Ch ronic pain of both knees,Bilateral hand pain APPLY 2 GRAMS UP TO FOUR TIMES DAILY TO affected joints FOR PAIN OR SWELLING 100 g 2 07/25/ 025 2024 Discontinued(I neffective) Buprenorphine HCl-Naloxone HCl (Suboxone) 8-2 MG SL filmIndications:O pioid use disorder Place 1 Film under the tongue 3 times daily for 21 days. 63 Film 025 2024 Discontinued(R eorder (will not trigger notification to Pharmacy)) predniSONE (Deltasone) 20 MG tablet Take 2 tablets (40 mg) by mouth Once per day for 5 days. 10 tablet 025 2024 Active Problems Problem Noted Date Diagnosed Date [...] think is appropriate to refer to an offender job retention specialist she may require further testing. In the meantime I have recommended against the use of NSAIDS going forward and protect herself when outdoors. Since her symptoms are resolved no need for treatment at the moment. Pt has Zyrtec at home which she will continue to take. Abnormal nuclear stress test 08/05/2023 Acute bronchitis with chroni c obstructive pulmonary disease (COPD) (CMS/[facility]) 08/05/2023 History of left bundle branch block [...] retiring, pt will be referred to new [facility] Psychiatric provider. Pt is aware that appts will be via televisit and that provider will not be an [facility] employee. She gives permission to share [...] and Suboxone. She will also F/U with [facility] clinician Nilson and the supports of the [facility] program. F/U with me in 2-3 weeks. She agrees with the plan. Opioid abuse 07/02/2022 05/17/2024 Encounters Date Type Department Care Team Description 12/05/2024 Patient Outreach [address] [address] Alona Crane ANP 12/01/2024 Patient Outreach [address] [address] Alona Crane ANP Care Management ([facility]- f/u call) 11/30/2024 4:00 PM EDT Office Visit [facility]ALK-IN [address] [address] Jacoby Donald MD Pharyngitis, unspecified etiology (Primary Dx); Moderate persistent asthma without complication; Diffuse abdominal pain; Viral URI; Acute bronchitis with chronic obstructive pulmonary disease (COPD) ([facility]) ([facility]) 11/30/2024 Travel 11/29/[address] [address] Alona Crane ANP Nurse Triage 11/28/2024 1:45 PM EDT Telemedicine [address] [address] Nalini Blum RN Uncomplicated opioid dependence ([facility]) 11/28/2024 Travel 11/28/[address] [address] Nalini Blum RN 11/28/2024 Patient Outreach [address] [address] Alona Crane ANP Care Coordination ([facility]) 11/18/2024 Patient Outreach [address] [address] Alona Crane ANP Care Coordination (SDOH) 11/17/2024 9:00 AM EDT Office Visit [address] [address] Alona Crane ANP Bilateral leg edema (Primary Dx); Essential hypertension; Rash of foot; Acute pain of left knee 11/17/2024 Travel 11/17/2024 Patient Outreach [address] [address] Alona Crane ANP Care Coordination ([facility] f/u) 11/16/2024 Patient Outreach [address] [address] Alona Crane ANP Care Management ([facility]- f/u call) 11/14/[address] [address] Alona Crane ANP Medication Question 11/14/[address] [address] Alona Crane ANP Prepop 11/14/[address] [address] Nalini Blum RN Opioid use disorder 11/07/2024 3:15 PM EDT Clinical Support [address] [address] Nalini Blum RN Uncomplicated opioid dependence (CMS/[facility]) (Primary Dx) 11/07/2024 Travel 11/03/2024 Patient Outreach [address] [address] Alona Crane ANP Care Coordination (PT1) 11/02/2024 Plan of Care Documentation [address] [address] 11/02/2024 Patient Outreach [address] [address] Alona Crane ANP Care Management (C3- initial assessment/ enrollment) 11/02/2024 Patient Outreach [address] [address] Alona Crane ANP Care Coordination (SDOH) 11/01/2024 Patient Outreach [address] [address] Alona Crane ANP Care Coordination (CM/CHW appt reminder) 10/31/[address] [address] Nalini Blum RN Opioid use disorder 10/31/[address] [address] Alona Crane ANP 10/28/[address] [address] Alona Crane ANP chart prep 10/24/2024 Patient Outreach [address] [address] Alona Crane ANP Care Coordination (CM/CHW outreach) 10/20/2024 Patient Outreach [address] [address] Alona Crane ANP Care Coordination (CHW chart review) 10/20/2024 Patient Outreach [address] [address] Aolna Crane ANP Care Management ([facility]- chart review) 10/20/2024 Patient Outreach [address] [address] Alona Crane ANP 10/19/2024 Orders Only GENERIC EXTERNAL DATA DEPARTMENT Provider, Generic External Data 10/17/2024 1:15 PM EDT Clinical Support [address] [address] Nalini Blum RN Uncomplicated opioid dependence (CMS/HCC) 10/17/2024 Travel 10/17/2024 Refill [facility] [address] [place] [address] Alona Crane ANP Moderate persistent asthma without complication 10/10/2024 Refill [facility] [address] [place] [phone] Nalini Blum, RN Opioid use disorder 10/06/2024 Refill [facility] [address] [place] [address] Nalini Blum, RN Opioid use disorder 09/26/2024 2:15 PM EDT Clinical Support [address] [address] Nalini Blum, SIRISHA Uncomplicated opioid dependence (CMS/HCC) (Primary Dx) 09/26/2024 Orders Only [facility] [address] [place] [phone] Antonieta Kennedy MD 09/26/2024 Travel 09/14/2024 Refill [facility] [address] [place] [address] Nalini Blum RN Opioid use disorder 09/09/2024 Results Follow-Up [facility] [address] [place] [address] Alona Crane ANP Hemoglobin A1c from Last 3 Months Immunizations Immunization Administration Dates Next Due Hep A / [...] Sign Reading Time Taken Comments Blood Pressure 133/82 11/30/2024 3:56 PM EDT Pulse 85 11/30/2024 3:56 PM EDT Temperature 35.9 C (96.7 F) 11/30/2024 3:56 PM EDT Respiratory Rate 20 11/30/2024 3:56 PM EDT Oxygen Saturation 95% 11/30/2024 3:56 PM EDT Inhaled Oxygen Concentration - - Weight 104 kg (228 lb 12.8 oz) 11/30/2024 3:56 P M EDT Height 157.5 cm (5' 2 ) 11/30/2024 3:56 PM EDT Body Mass Index 41.85 11/30/2024 3:56 PM EDT Plan of Treatment Upcoming Encounters Date Type Department Care Team (Late st Contact Info) Description 12/19/2024 2:30 PM EDT Office Visit [facility] [address] [place] [address] Jacoby Donald MD [address] [place] [address] 12/29/2024 1:45 PM EDT Procedure Visit [facility] [address] [place] [phone] Chelsey Mckenzie, CNM [address] [place] [address] 01/11/2025 2:30 PM EDT Office Visit [facility] [address] [place] [address] Alona Crane ANP [address] [place] [address] Health Maintenance Due Date Last Done Comments CT Colonography 1965 Colonoscopy 1966 FIT 1966 Sigmoidoscopy 1965 Disability Screening 1966 Pap Smear 07/30/1987 Cervical Cancer Screening 1996 HPV/Cotest 1996 Pneumococcal Vaccine: 50+ Years (2 of 2 - PCV) 08/20/2015 08/19/2014 Zoster Vaccines (2 of 2) 08/04/2023 06/09/2023 COVID-19 Vaccine ( season) 2024 11/01/2021, 11/01/2021, 04/12/2021, Additional history exists Influenza Vaccine (#1) 2024 , 01/09/2017, 01/24/2016, Additional history exists Lipid Panel 04/03/2025 04/03/2020 Alcohol/Substance Use Screening 05/02/2025 05/02/2024 Depression Monitoring 05/05/2025 11/02/2024, 025 FOBT 05/27/2025 05/27/2024, 11/08/2019 Mammogram 06/17/2025 06/17/2024, 04/13/2018 Diabetes: Hemoglobin A1C 07/21/2025 025, 07/04/2024, 04/03/2020 SDOH Screening 11/02/2025 11/02/2024 Tobacco Screening 11/30/2025 11/30/2024 Colorectal Cancer Screening 05/28/2027 FIT DNA/Cologuard 05/28/2027 [...] patient's age to complete this topic Meningococcal B Vaccine Aged Out No l onger eligible based on patient's age to complete [...] Name Priority Date/Time Associated Diagnosis Comments POCT INFLUENZA B Routine 11/30/2024 4:16 PM EDT Viral URI POCT INFLUENZA A Routine 11/30/2024 4:14 PM EDT Viral URI POCT COVID-19 AG REYNOSO ID NOW Routine 11/30/2024 4:05 PM EDT Viral URI POCT RAPID STREP A Routine 11/30/2024 4: 03 PM EDT Viral URI POCT JENNY-14 URINE DRUG SCREEN Routine 11/07/2024 3:13 PM EDT Uncomplicated opioid dependence (CMS/HCC) US ABDOMEN LIMITED Routine 10/19/2024 3: 05 PM EDT LIPASE Routine 10/19/2024 1:35 PM EDT MAGNESIUM Routine 10/19/2024 1:35 PM EDT COMPREHENSIVE METABOLIC PANEL Routine 10/19/2024 1:35 PM EDT CBC WITH AUTO DIFFERENTIAL Routine 10/19/2024 1:35 PM EDT XR KUB AND UPRIGHT 2 VIEWS Routine 10/19/2024 12:42 PM EDT DRUG MONITOR, FENTANYL, W/CONF, URINE Routine 09/26/2024 2:45 PM EDT POCT JENNY-14 URINE DRUG SCREEN Routine 09/26/2024 2:01 PM EDT Uncomplicated opioid dependence (CMS/HCC) HEMOGLOBIN A1C Routine 07/21/2024 1:20 PM EDT HEPATITIS C AB W/REFL TO HCV RNA, QN, PCR Routine 07/04/2024 2:31 PM EDT HIV 1/2 ANTIGEN/ANTIBODY, FOURTH GENERATION W/RFL Routine 07/04/2024 2:31 PM EDT BI MAMMOGRAM SCREENING TOMOSYNTHESIS BILATERAL Routine 06/17/2024 2:15 PM EDT LAB COLOGUARD COLON CANCER SCREEN Routine 05/27/2024 2:49 PM EST Screening for colon cancer LIPID PANEL, STANDARD Routine 04/03/2020 2:27 PM EST from Last 3 Months or Most Recently Relevant to Health Maintenance Results * POCT Rapid Influenza B OSOM (11/30/2024 4:16 PM EDT) [facility] Rapid Influenza B Ag Negative Negative, Indeterminate QC Media Lot # [id number] Lot# Expiration Date Swab 11/30/2024 4:16 PM EDT us Jacoby Donald MD POINT OF CARE TEST ENTER/EDIT OR DERABLES Final Result * POCT Rapid Influenza A OSOM (11/30/2024 4:14 PM EDT) [facility] Rapid Influenza A Ag Negative Negative, Indeterminate QC Media Lot # [id number] Lot# Expiration Date Swab Nasopharyngeal structure / Unknown 11/30/2024 4:14 PM EDT us Jacoby Donald MD POINT OF CARE TEST ENTER/EDIT OR DERABLES Final Result * POCT Rapid Covid-19 REYNOSO ID NOW (11/30/2024 4:05 PM EDT) [facility] Coronavirus Antigen PCR Negative Negative, Indeterminate, None Detected, Invalid, Specimen unsatisfactory for evaluation, Weakly Positive, 2+ QC Media Lot # [id number] Lot# Expiration Date Swab 11/30/2024 4:05 PM EDT us Jacoby Donald MD POINT OF CARE TEST ENTER/EDIT OR DERABLES Final Result * POCT Rapid Strep A OSOM (11/30/2024 4:03 PM EDT) [facility] Rapid Strep A Screen Negative Negative, None Detected QC Media Lot # [id number] Lot# Expiration Date Swab 11/30/2024 4:03 PM EDT us Jacoby Donald MD POINT OF CARE TEST ENTER/EDIT OR DERABLES Final Result * (ABNORMAL) POCT JENNY-14 Urine Drug Screen (11/07/2024 3:13 PM EDT) Only the most recent of2 resultswithin the time period is included. THC Negative Negative Cocaine Screen, Urine Negative Negative Opiate Screen, Urine Negative Negative Methamphetamine Screen Urine Negative Negative Amphetamine Screen, Urine Negative Negative Benzodiazepines Screen, Urine Negative Negative Barbiturate Screen, Urine Negative Negative Methadone Screen, Urine Negative Negative Buprenophine Screen, Urine Positive(A) Negative TCA, Urine Negative Negative MDMA Urine Negative Negative ng/mL Oxycodone Screen, Urine Negative Negative Phencyclidine (PCP), Urine Negative Negative Fentanyl, Urine Negative Negative Urine Urine specimen obtained by clean catch procedure / Unknown 11/07/2024 3:13 PM EDT Antonieta Kennedy MD POINT OF CARE TEST ENTER/EDIT OR DERABLES Final Result * US Abdomen Limited (10/19/2024 3:05 PM EDT) Anatomical Region Laterality Modality Abdomen Ultrasound 10/19/2024 3:05 PM EDT Narrative 10/19/2024 3:37 PM EDT [place] [address] Ultrasound Report Signed Patient: Gaby Arteaga MR#: [id number] 46 : 1965 Acct:[id number] Age/Sex: 59 / F ADM Date: 10/19/24 Loc: .ED Attending Dr: Ordering Physician: German Wilkerson MD Date of Service: 10/19/24 Procedure(s): US abdomen limited Accession Number(s): [id number] cc: German Wilkerson MD; ALONA CRANE NP EXAMINATION: US ABDOMEN LIMITED CLINICAL INFORMATION: Upper abd pain, pls eval for gallstones. COMPARISON: CT of abdomen/pelvis on August 17, 2024 TECHNIQUE: Real-time imaging of the right upper quadrant abdominal viscera. FINDINGS: GALLBLADDER: Nondistended gallbladder contains at least 2 gallstones (measuring about 2.0 cm) at the level of the neck and small amount of sludge. No abnormal gallbladder wall thickening. No pericholecystic fluid. COMMON BILE DUCT: Mildly dilated, with caliber measuring 0.7 cm in diameter. US/US abdomen limited IMPRESSION: 1. Cholelithiasis without sonographic evidence of acute cholecystitis. 2. Mildly dilated common bile duct up to 0.7 cm, without identification of obstructing stones. Electronically signed by: Selena Massey MD 10/19/2024 03:34 PM EDT RP Dictated By: Selena Massey MD Signed By: <Electronically signed by Selena Massey MD in OV> 10/19/24 1534 DD/ 1505 TD/TT: 10/19/24 1513 Occ Med Physician: Procedure Note Donotuseinterpreter, Image - 10/19/2024 [place] [address] Ultrasound Report Signed Patient: Wyatt Arteaga#: [id number] 46 : 1965Acct:[id number] Age/Sex: 59 / FADM Date: 10/19/24 Loc: .ED Attending Dr: Ordering Physician: German Wilkerson MD Date of Service: 10/19/24 Procedure(s): US abdomen limited Accession Number(s): [id number] cc: German Wilkerson MD; ALONA CRANE NP EXAMINATION: US ABDOMEN LIMITED CLINICAL INFORMATION: Upper abd pain, pls eval for gallstones. COMPARISON: CT of abdomen/pelvis on August 17, 2024 TECHNIQUE: Real-time imaging of the right upper quadrant abdominal viscera. FINDINGS: GALLBLADDER: Nondistended gallbladder contains at least 2 gallstones (measuring about 2.0 cm) at the level of the neck and small amount of sludge. No abnormal gallbladder wall thickening. No pericholecystic fluid. COMMON BILE DUCT: Mildly dilated, with caliber measuring 0.7 cm in diameter. US/US abdomen limited IMPRESSION: 1. Cholelithiasis without sonographic evidence of acute cholecystitis. 2. Mildly dilated common bile duct up to 0.7 cm, without identification of obstructing stones. Electronically signed by: Selena Massey MD 10/19/2024 03:34 PM EDT RP Dictated By: Selena Massey MD Signed By: <Electronically signed by Selena Massey MD in OV> 10/19/24 1534 DD/ 1505 TD/TT: 10/19/24 1513 Occ Med Physician: us [facility] External Provider IMG US PROCEDURES Final Result * (ABNORMAL) CBC auto differential (10/19/2024 1:35 PM EDT) White Blood Count 6.6 4.8 - 10.8 X10*3/uL [facility] Red Blood Count 4.39 4.20 - 5.50 X10*6/uL [facility] Hemoglobin 12.0 12.0 - 16.0 g/dl [facility] Hematocrit 36.3(L) 37.0 - 47.0 % [facility] Mean Corpuscular Volume 82.7 80.0 - 98.0 fL [facility] Mean Corpuscular Hemoglobin 27.3 27.0 - 33.0 pg [facility] Mean Corpuscular HGB Conc 33.1 31.0 - 35.0 g/dl [facility] Red Cell Distribution Width 14.3 11.0 - 16.0 % [facility] Platelet Count 323 160 - 400 X10*3/uL [facility] Mean Platelet Volume 8.7(L) 9.4 - 12.3 fL [facility] Neutrophils Percent Auto 49.4 45 - 73 % [facility] Imm Gran Pct Auto 0.3 0.0 - 0.4 % [facility] Lymphocytes Percent Auto 32.0 20 - 40 % [facility] Monocytes Percent Auto 7.6 2 - 11 % [facility] Eosinophils Percent Auto 9.8(H) 0 - 4 % [facility] Basophils Percent Auto 0.9 0 - 2 % [facility] NRBC Pct Auto 0.0 0.0 - 0.2 /100WBC [facility] Neutrophils Absolute Auto 3.3 2.0 - 8.3 x10*3/uL [facility] Imm Gran Abs Auto 0.02 0.00 - 0.03 X10*3/uL [facility] Lymphocytes Absolute Auto 2.1 1.2 - 4.9 X10*3/uL [facility] Monocytes Absolute Auto 0.5 0.1 - 1.2 X10*3/uL [facility] Eosinophils Absolute Auto 0.7(H) 0.0 - 0.4 X10*3/uL [facility] Basophils Absolute Auto 0.1 0.0 - 0.2 X10*3/uL [facility] NRBC Abs Auto 0.000 0.0 - 0.012 X10*3/uL [facility] 10/19/2024 1:35 PM EDT 10/19/2024 1:38 PM EDT Generic External Data Provider LAB BLOOD ORDERAB LES Final Result Performing Organization Address City/[facility]/ZIP Co de Phone Number [facility] [address] [place] [phone] * Magnesium (10/19/2024 1:35 PM EDT) Pathologist [facility] Magnesium 1.9 1.6 - 2.6 mg/dL [facility] 10/19/2024 1:35 PM EDT 10/19/2024 1:38 PM EDT Generic External Data Provider LAB BLOOD ORDERAB LES Final Result Performing Organization Address [facility] Co de Phone Number [facility] [address] [place] [phone] * (ABNORMAL) Lipase (10/19/2024 1:35 PM EDT) Lipase 6(L) 8 - 78 U/L [facility] 10/19/2024 1:35 PM EDT 10/19/2024 1:38 PM EDT us Generic External Data Provider LAB BLOOD ORDERAB LES Final Result [facility] [address], [place] [phone] * (ABNORMAL) Comprehensive Metabolic Panel (10/19/2024 1:35 PM EDT) Sodium 141 135 - 145 mmol/L [facility] Potassium 4.1 3.3 - 5.1 mmol/L [facility] Chloride 106 96 - 108 mmol/L [facility] Carbon Dioxide 27 22 - 29 mmol/L [facility] Anion Gap 12 12 - 20 [facility] Urea Nitrogen (BUN) 12 9 - 16 mg/dL [facility] Creatinine, Serum 0.60 0.5 - 1.4 mg/dL [facility] Creatinine Clr Calc Pharmacy 120.9 [facility] Comment:Provided height and weight: 162.56 cm,105.3 kg.eGFR (calculated from the MDRD study equation) and eCrCl(calculated from the Cockcroft-Gault equation) are based ondifferent parameters and may not yield comparable results.If eCrCl result is absurd, please check patient'sheight/weight. Estimated Glomerular Filt Rate >60 [facility] Comment:Chronic Kidney Disea se: Estimated GFR < 60 mL/min/1.97a2Iymlpt Kidney Disease: Estimated GFR < 15 mL/min/1.73m2 Glucose 111 60 - 115 mg/dL [facility] Calcium 9.1 8.4 - 10.2 mg/dL [facility] Bilirubin, Total 0.5 0.0 - 1.0 mg/dL [facility] Aspartate Amino Transferase 21 5 - 31 U/L [facility] Alanine Aminotransferase 22 0 - 31 U/L [facility] Total Protein 7.5 6.5 - 8.0 g/dL [facility] Albumin Level 4.0 3.5 - 5.0 g/dL [facility] Alkaline Phosphatase 151(H) 39 - 117 U/L [facility] 10/19/2024 1:35 PM EDT 10/19/2024 1:38 PM EDT us Generic External Data Provider LAB BLOOD ORDERAB LES Final Result [facility] [address] [place] [phone] * XR KUB and Upright 2 Views (10/19/2024 12:42 PM EDT) Anatomical Region Laterality Modality Radiographic Tricia ging 10/19/2024 12:4 2 PM EDT Narrative 10/19/2024 1:56 PM EDT [address] [address] XRay Report Signed Patient: Gaby Arteaga MR#: [id number] [birth year] : 1965 Acct:[id number] Age/Sex: 59 / F ADM Date: 10/19/24 Loc: .ED Attending Dr: Ordering Physician: Generic ED Physician Date of Service: 10/19/24 Procedure(s): XR KUB Accession Number(s): [id number] cc: Generic ED Physician; ALONA CRANE NP EXAMINATION: XR ABDOMEN KUB CLINICAL INDICATION: constipation COMPARISON: August 17, 2024 CT TECHNIQUE: AP view of the abdomen. FINDINGS: Moderate stool is present in the transverse colon. There is a small amount stool in the colon otherwise. Small amount of small bowel gas is visible. XR/XR KUB IMPRESSION: Nonspecific bowel gas pattern with moderate stool in the transverse colon. Electronically signed by: Richie Henderson MD 10/19/2024 01:52 PM EDT Dictated By: Richie Henderson MD Signed By: <Electronically signed by Richie Henderson MD in OV> 10/19/24 1352 DD/ 1242 TD/TT: 10/19/24 1344 Occ Med Physician: Procedure Note Donotuseinterpreter, Image - 10/19/[address] [place] [address] XRay Report Signed Patient: Wyatt Arteaga#: [id number] [birth year] : 1965Acct:[id number] Age/Sex: 59 / FADM Date: 10/19/24 Loc: HO.ED Attending Dr: Ordering Physician: Generic ED Physician Date of Service: 10/19/24 Procedure(s): XR KUB Accession Number(s): [id number] cc: Generic ED Physician; ALONA CRANE CASTING FINISHER EXAMINATION: XR ABDOMEN KUB CLINICAL INDICATION: constipation COMPARISON: August 17, 2024 CT TECHNIQUE: AP view of the abdomen. FINDINGS: Moderate stool is present in the transverse colon. There is a small amount stool in the colon otherwise. Small amount of small bowel gas is visible. XR/XR KUB IMPRESSION: Nonspecific bowel gas pattern with moderate stool in the transverse colon. Electronically signed by: Richie Henderson MD 10/19/2024 01:52 PM EDT RP Dictated By: Richie Henderson MD Signed By: <Electronically signed by Richie Henderson MD in OV> 10/19/24 1352 DD/ 1242 TD/TT: 10/19/24 1344 Occ Med Physician: [facility] [employer] [facility] External Provider IMG XR PROCEDURES Final Result * Drug Monitoring, Fentanyl, with Confirmation, Urine (09/26/2024 2:45 PM EDT) Fentanyl, Ur 19.3 [facility] Comment:CUTOFF0.5 ng/mL Norfentanyl, Ur NEGATIVE [facility] Comment:CUTOFF0.5 ng/mL Fentanyl Note SEE NOTE [facility] Comment:NOTES AND COMMENTSTh is drug testing is for medical treatment only. Analysiswas performed as non-forensic testing and these resultsshould be used only by healthcare providers torender diagnosis or treatment, or to monitor progress ofmedical conditions.Fentanyl Notes:Fentanyl detected is consistent with the use of the drugFentanyl. The metabolite Norfentanyl is not present at orabove the cutoff.LDT Notes:Confirmation tests were developed and their analyticalperformance characteristics have been determined by [employer]. It has not been cleared orapproved by the FDA. This assay has been validated pursuantto the CLIA regulations and is used for clinical purposes.Healthcare Providers needing Interpretation assistance,please contact us at [phone] ( ) M-F,8am to 10pm ESTPERFORMING SITE:[facility], [address] [place] [phone] Safety And Health Consultant: AMANDEEP CLEANING MD, CLIA:[id number] 09/26/2024 2:45 PM EDT 09/26/2024 4:34 PM EDT Antonieta Kennedy MD LAB URINE ORDERABLES Final Resul t Performing Organization Address [facility] Co de Phone Number [facility] [address] [place] [address] [phone] * Hemoglobin A1c (07/21/2024 1:20 PM EDT) Hemoglobin A1c 5.8 <6.0 % [facility] Comment:Hemoglobin A1C Refer ence Range Adults: 4.8 - 6.0 % Non diabetic: < 6.0 % Goal: < 7.0 %Additional Action Suggested: > 8.0 %Note: Hemoglobin A1c results are invalid for patients with abnormal amounts of HbF. Blood transfusions may impact the HbA1c concentration in the patient sample. Estimated Average Glucose 120 mg/dL [facility] Comment:eAG = Estimated ave rage glucose which is %A1C expressed asaverage glucose, using the formula of the H3U-AilxotzMnsksjq Glucose study (ADAG), Diabetes Care, Vol.31,#8,Oct. 2007 07/21/2024 1:20 PM EDT 07/21/2024 1:20 PM EDT us Alona MOSCOSO LAB BLOOD ORDERABLES Final Resul t Performing Organization Address [facility] Co de Phone Number [facility] [address] [place] [phone] * Hepatitis C Antibody with Reflex to HCV, RNA, Quantitative, Real-Time PCR (07/04/2024 2:31 PM EDT) Hepatitis C Antibody Nonreactive Nonreactive [facility] Comment:Antibodies to HCV no t detected; does not exclude early acuteHCV infection. 07/04/2024 2:31 PM EDT 07/04/2024 4:02 PM EDT us Jacoby Donald MD LAB BLOOD ORDERABLES Final Resul t Performing Organization Address [facility]/ZIP Co de Phone Number [facility] [address] [place] [phone] * HIV-1/2 Antigen and Antibodies, Fourth Generation, with Reflexes (07/04/2024 2:31 PM EDT) Pathologist [facility] HIV AB/AG Nonreactive Nonreactive [facility] Comment:HIV-1 p24 Ag and/or HIV-1/HIV-2 Ab not detected.A test result that is nonreactive does not exclude thepossibility of exposure to or infection with HIV-1 and/orHIV-2. Nonreactive results in this assay for individualswith prior exposure to HIV-1 and/or HIV-2 may be due toantigen and antibody levels that are below the limit ofdetection of this assay.The [employer] HIV Ag/Ab Combo assay result andsupplemental assay results should be interpreted inconjunction with the patient's clinical presentation,history and other laboratory results. If the results areinconsistent with clinical evidence, additional testing issuggested to confirm the result. 07/04/2024 2:31 PM EDT 07/04/2024 4:02 PM EDT us Jacoby Donald MD LAB BLOOD ORDERABLES Final Resul t Performing Organization Address [facility]/ZIP Co de Phone Number [facility] [address] [place] [phone] * BI Mammogram Screening Tomosynthesis Bilateral (06/17/2024 2:15 PM EDT) Anatomical Region Laterality Modality Breast Bilateral Mammography 06/17/2024 2:15 PM EDT Located Within [facility] 06/25/2024 3:10 PM EDT [facility] [address] [place], [place] [address] Mammography Report Signed Patient: Gaby Arteaga MR#: [id number] 46 : 1965 Acct:[id number] Age/Sex: 58 / F ADM Date: 06/17/24 Loc: HO.MAMMO Attending Dr: Alona Crane NP Ordering Physician: ALONA CRANE NP Results: 1Negative Date of Service: 06/17/24 Follow Up: 1 Year From Orig inal Mammogram Procedure(s): MM tomosynthesis screening BI Accession Number(s): [id number] cc: ALONA CRANE NP EXAMINATION: MM SCREENING [...] 06/25/24 1506 DD/ 1415 TD/TT: 06/17/24 1440 Occ Med Physician: Procedure Note Donotuseinterpreter, Image - [facility]/25/[facility] [address] [place], [place] [address] Mammography Report Signed Patient: Wyatt Arteaga#: [id number] 46 : 1965Acct:[id number] Age/Sex: 58 / FADM Date: 06/17/24 Loc: HO.MAMMO Attending Dr: Alona Crane CASTING FINISHER Ordering Physician: ALONA CRANE NPResults: 1Negative Date of Service: 06/17/24Follow Up: 1 Year From Orig inal Mammogram Procedure(s): MM tomosynthesis screening BI Accession Number(s): [id number] cc: ALONA CRANE NP EXAMINATION: MM SCREENING [...] 06/25/24 1506 DD/ 1415 TD/TT: 06/17/24 1440 Occ Med Physician: Alona Crane ANP IMG BI PROCEDURES Edited Result - Final * (ABNORMAL) Cologuard?? colon cancer screening (05/27/2024 2:49 PM EST) Cologuard Result Positive( A) Negative 06/04/2024 5:36 PM EDT [facility] (CLIA #:[id number]) Comment: POSITIVE TEST RESULT. A positive Cologuard result should be followed with a colonoscopy or visual examination of the colon. The normal value (reference range) for this assay is negative. TEST DESCRIPTION: Composite algorithmic analysis of stool DNA-biomarkers with hemoglobin immunoassay. Quantitative values of individual biomarkers are not [...] Sims et al, N Engl J Med 2014;370(14):1112-7306.) Cologuard may produce a false negative or false positive result (no colorectal cancer or precancerous polyp present at colonoscopy follow up). A negative Cologuard test result does not guarantee the absence of CRC or advanced adenoma (pre-cancer). The current Cologuard screening interval is every 3 years. ([place] [employer] Society and U.S. Multi-Society Task Force). Cologuard performance data in a 10,000 patient pivotal study using colonoscopy as the reference method can be accessed at the following location: www.[employer]/results. Additional description of the Cologuard test process, warnings and precautions can be found at www.cologuard.com. Stool specimen (specimen) 05/27/2024 2:49 PM EST 05/29/2024 11:29 PM EDT Alona MOSCOSO LAB MOLECULAR DIAGNOSTICS ORDERA BLES Final Result Performing Organization Address City/[facility]/ZIP Co de Phone Number [facility] (CLIA #:[id number]) [place] [address], * (ABNORMAL) LIPID PANEL, STANDARD (04/03/2020 2:27 PM EST) Chol/HDLC Ratio 3.5 <5.0 (calc) [facility] Cholesterol, Total 220(H) <200 mg/dL [facility] HDL Cholesterol 63 > OR = 50 mg/dL [facility] LDL Cholesterol 129(H) mg/dL (calc) [facility] Comment: Reference range: <100 Desirable range <100 mg/dL for primary prevention; <70 mg/dL for patients with CHD or diabetic patients with > or = 2 CHD risk factors. LDL-C is now calculated using the Faustino-Douglas calculation, which is a validated novel method providing better accuracy than the Friedewald equation in the estimation of LDL-C. Faustino SS et al. NICHOLAS. 2013;310(19): 7970-0621 (http://education.[employer].com/faq/IGF756) Non-HDL Cholesterol 157(H) <130 mg/dL (calc) [facility] Comment: For patients with diabetes plus 1 major ASCVD risk factor, treating to a non-HDL-C goal of <100 mg/dL (LDL-C of <70 mg/dL) is considered a therapeutic option. Triglycerides 165(H) <150 mg/dL [facility] 04/03/2020 2:27 PM EST Syed Hardy MD LAB BLOOD ORDERABLES Final Resul t Performing Organization Address City/[facility]/ZIP Co de Phone Number [facility] [address] from Last 3 Months or Most Recently Relevant to Health Maintenance [place] [address] [place] [address] C3 Care Teams Back Shoe Worker Relationship Specialty Start Date End Date Alona Crane ANP [address] [place] [address] PCP - General Family Medicine 02/11/22 Aldo Araiza, SIRISHA [address] [place] [address] Registered Nurse Family Medicine 10/20/24 Claudine Arnold 10/20/24 Lilian Varghese Engineering Design ManagerDirector Client Services 07/02/23
--- OUTSIDE RECORDS SUMMARY | 2024-12-07 17:57 | XMS_ITS | Encounter Summary ---
Author Organization [facility] Address [address] [place] [address] Care Team Providers Care Data Entry Assistant Name Role Phone Sosa Juani MOSCOSO Primary Care Provider [phone] Aldo Araiza RN Unavailable [phone] Claudine Arnold Unavailable Encounter Details Date Type Department Care Team (Late st Contact Info) Description 04/09/2023 Orders Only [facility] MEDICINE [address] [place], [place] [phone] Nalini Blum, SIRISHA Uncomplicated opioid dependence (CMS/HCC) Social History Tobacco [...] AM EDT documented as of this encounter Functional Status * Over the past 2 weeks, how often have you been bothered by any of the following problems? Question Answer Date of Assessment Author Patient Health Questionnaire -2 Score 4 04/09/2023 10:44 AM Keyona Vasquez [place] * If you checked off any problems on this questionnaire so far, Question Answer Date of Assessment Author How difficult have these problems made it for you to do your work, take care of things at home, or get along with other people? Somewhat difficult 04/09/2023 10:44 AM Keyona Vasquez MA * Over the last 2 weeks, how often have you been bothered by any of the following problems? Question Answer Date of Assessment Author Feeling nervous, anxious, or on edge 3 04/09/2023 10:44 AM Keyona Vasquez MA Not being able to stop or co ntrol worrying 1 04/09/2023 10:44 AM Keyona Vasquez MA Worrying too much about diff erent things 1 04/09/2023 10:44 AM Keyona Vasquez MA Trouble relaxing 3 04/09/2023 10:44 AM Keyona Vasquez MA Being so restless that it is hard to sit still 1 04/09/2023 10:44 AM Keyona Vasquez MA Becoming easily annoyed or irritable 1 04/09/2023 10:44 AM Keyona Vasquez MA Feeling afraid as if somethi ng awful might happen 3 04/09/2023 10:44 AM Keyona Vasquez MA JESUS-7 Total Score 13 04/09/2023 10:44 AM Keyona Vasquez MA * Over the past 2 weeks, how often have you been bothered by any of the following problems? Question Answer Date of Assessment Author Little interest or pleasure in doing things Several days 04/09/2023 10:44 AM Claudine Vasquez MA Feeling down, depressed, or hopeless Nearly every day 04/09/2023 10:44 AM Keyona Vasquez MA Trouble falling or staying asleep, or sleeping too much Nearly every day 04/09/2023 10:44 AM Keyona Vasquez MA Feeling tired or having little energy Several days 04/09/2023 10:44 AM Keyona Vasquez MA Poor appetite or overeating Several days 04/09/2023 10:44 AM Keyona Vasquez MA Feeling bad about yourself - or that you are a failure or have let yourself or your family down Nearly every day 04/09/2023 10:44 AM Keyona Vasquez MA Trouble concentrating on things, such as reading the newspaper or watching television Several days 04/09/2023 10:44 AM Keyona Vasquez MA Moving or speaking so slowly that other people could have noticed? Or the opposite - being so fidgety or restless that you have been moving around a lot more than usual. Several days 04/09/2023 10:44 AM Keyona Vasquez MA Thoughts that you would be better off or hurting yourself in some way Not at all 04/09/2023 10:44 AM Adele Vasquez MA Patient Health Questionnaire-9 Score 14 04/09/2023 10:44 AM Comfort Vasquez MA documented as of this encounter Plan of Treatment Upcoming Encounters Date Type Department Care Team (Late st Contact Info) Description 12/19/2024 2:30 PM EDT Office Visit [facility] MEDICINE [address] [place] [address] Jacoby Donald MD [address] [place], [place] [phone] 12/29/2024 1:45 PM EDT Procedure Visit [facility] MEDICINE [address] [place] [address] Chelsey Mckenzie, CNM [address] [place] [address] 01/11/2025 2:30 PM EDT Office Visit [facility] MEDICINE [address] [place], [place] [phone] Juani Sosa, ANP [address], [place] [phone] Scheduled Orders Name Type Priority Associated Diagnoses [...] dependence (CMS/HCC) Expected: 04/09/2023 (Approximate), Expires: 04/09/2024 T-SPOT .TB Lab Routine Uncomplicated opioid dependence (CMS/HCC) Expected: 04/09/2023 (Approximate), Expires: 04/09/2024 documented as of this encounter Visit Diagnoses Diagnosis Uncomplicated opioid dependence (CMS/HCC) documented in this encounter Additional Health Concerns Assessment Noted Time PHQ-9 Depression Total Score: 14 024 10:44 AM EST documented as of this encounter Care Teams Data Entry Assistant Relationship Specialty Start Date End Date Juani Sosa ANP [address] [place] [address] PCP - General Family Medicine 02/11/22 Aldo Araiza, SIRISHA [address] [place] [address] Registered Nurse Family Medicine 10/20/24 Claudine Arnold 10/20/24 Lilian Varghese Environmental Services WorkerHospitality Internship 07/02/23 documented as of this encounter
--- NOTE | 2025-01-05 12:02 | HO.ANESPROP2 ---
Documented by User: Hien Jovel NP 02/02/25 14:00 HPI - Anesthesia Eval Consult details Narrative: 59yo F for Right Knee Replacement Total, 02/06/25 Cardiac optimized. Preop eval with [facility] [facility] - known LBBB and previous CP (resolved) Current with UTI on abx (ER earlier this week) - c/o dizziness r/t abx, no syncope, VSS. Has appt with PCP 01/11/25. Reviewed reasons to return to ER Chronic nasal congestion No URI No CP/SOB with limited activity Cardiac optimized. Follows [facility] [place] Cardiology for htn, intermit LBBB Asthma/COPD: albuterol 2 puffs daily KENDRA: no CPAP - pt states never rx'd Hx polysub: suboxone 8mg BID - will consider reducing to 8mg daily for 3 days preop, no other drug use for years, rare ETOH, PMFSH Active Problems Active Problems: All Active Problems Preop cardiovascular exam (Acute) Varicose veins of both lower extremities with inflammation (Acute) Osteoarthritis of right knee (Acute) Osteoarthritis of left knee (Acute) Left knee pain (Acute) Abnormal nuclear stress test (Acute) Encounter for preoperative pulmonary examination (Acute) COVID-19 (Acute) Right knee pain (Acute) LBBB (left bundle branch block) (Acute) Chest pain (Acute) KENDRA (obstructive sleep apnea) (Acute) Dyspnea on exertion (Acute) Hyperkalemia (Acute) Primary osteoarthritis of right knee (Acute) Gastroparesis (Acute) Constipation by delayed colonic transit (Acute) Upper abdominal pain (Acute) Asthma (Acute) HTN (hypertension) (Acute) Left against medical advice (Acute) History of heroin use (Acute) Past Medical History Medical History Tobacco dependence in remission Panic disorder Uncomplicated opioid dependence Moderate alcohol dependence in sustained remission GERD (gastroesophageal reflux disease) Arthritis Concussion Bilateral leg edema Bilateral knee pain Constipation Sleep apnea Bronchitis COPD (chronic obstructive pulmonary disease) Bipolar 1 disorder PTSD (post-traumatic stress disorder) Obesity H. pylori infection Epigastric pain Left against medical advice Angioedema History of fatty infiltration of liver History of alcohol dependence History of heroin use Chronic knee pain Chronic back pain History of seizure History of panic disorder History of opioid abuse Depression HTN (hypertension) History of left bundle branch block (LBBB) Migraine Anxiety Asthma Family History Family History Mother Heart disease Arthritis HTN (hypertension) Surgical History Surgical History Hx of exploratory laparotomy Hx of colonoscopy Social History Social History Household Members: None Housing: House Are you a primary critical care physician assistant to a significant other at home: No Do you presently have visiting nurse or other home services: 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 If so, by whom?: No Are you DNR?: No Advance Directives: No Advance Directives Information Provided: No Advance Directives on File: No Patient : No : No service: No Current occupational status: unemployed and disabled Current occupation: rt hand Meds Allergies Allergy/AdvReac Type Severity Reaction Status Date / Time lisinopril Allergy Severe Angioedema Verified 02/02/25 08:28 hydroxyzine (HYDROXYZINE) AdvReac Intermediate reports Verified 02/02/25 08:28 redness and swelling Home Medications ?Medication ?Instructions ?Recorded ?Confirmed ?Last Taken ?Type cetirizine 10 mg tablet 10 mg PO DAILY 08/28/21 02/06/25 02/05/25 History naloxone 4 mg/actuation nasal 0 spray intranasal NEEDED PRN 08/28/21 02/06/25 02/05/25 History spray (Narcan) Opioid Reversal buprenorphine 8 mg-naloxone 2 mg 1 film sublingual TID 10/15/22 02/06/25 02/05/25 History sublingual film (Suboxone) calcium carbonate (Tums) 200 mg PO TID PRN Acid Reflux 01/05/25 02/06/25 Unknown History hydrochlorothiazide 25 mg tablet 25 mg PO DAILY 01/05/25 02/06/25 02/05/25 History prednisone 20 mg tablet 40 mg PO DAILY PRN Shortness Of 1002/06/25 02/04/25 History Breath Or Wheezing fluticasone furoate 200 1 inh inhalation DAILY 01/27/25 02/06/25 02/05/25 History mcg/actuation blister powder for inhalation (Arnuity Ellipta) fluticasone propionate 50 2 spray intranasal DAILY PRN 01/27/25 02/06/25 02/05/25 History mcg/actuation nasal Allergy Symptoms spray,suspension omeprazole 40 mg capsule,delayed 40 mg PO QAM 01/27/25 02/06/25 02/05/25 History release triamcinolone acetonide 0.1 % 1 appl topical BID PRN Rash 01/27/25 02/06/25 Unknown History topical cream Exam Height,Weight and Vital Signs: Height 5 ft 2 in Weight 105.687 kg BMI result Body Mass Index 42.6 Pertinent Lab Results Pertinent Lab Results: Laboratory Tests 02/02/25 09:14 WBC 8.8 Hgb 11.9 L Hct 37.4 Plt Count 322 Sodium 141 Potassium 3.6 Chloride 102 Carbon Dioxide 32 H BUN 19 H Creatinine 0.63 Narrative Narrative: EKG 12/2024 Vent. Rate : 84 BPM Atrial Rate : 84 BPM P-R Int : 126 ms QRS Dur : 94 ms QT Int : 382 ms P-R-T Axes : 65 20 27 degrees QTcB Int : 451 ms Normal sinus rhythm with sinus arrhythmia Normal ECG When compared with ECG of 16-Aug-2024 23:31, Left bundle branch block is no longer Present ECHO 2023 Conclusions: - The left ventricular systolic function is normal. The calculated ejection fraction is 64% by biplane method. - No obvious valvular pathology seen on this study. NM cardiolite stress test 2023 Impression: 1. Myocardial perfusion imaging study shows reversible anteroapical perfusion defect. Could indicate mild ischemia. Artifact not excluded. 2. Gated LVEF is 60% during stress and visually normal during rest. 3. Transient ischemic dilatation not present. Cardiac Cath 2023 Hemodynamics: Normal systemic pressures. Normal LVEDP. There is moderate gradient across aortic valve on pullback 22 mmHg. Coronary anatomy: Right dominant circulation. No significant coronary artery disease noted. Diagnostic Recommendations Aggressive primary risk factor modification according to ATP III guidelines. Can proceed with knee surgery with low to intermediate risk for perioperative complications. Assessment and Plan Assessment Anesthesia Assessment: Anesthesia Plan Discussed and PAT Visit Documented by User: Geena Bunn MD 02/06/25 08:10 [facility], [facility] Past Medical History Medical History Tobacco dependence in remission Panic disorder Uncomplicated opioid dependence Moderate alcohol dependence in sustained remission GERD (gastroesophageal reflux disease) Arthritis Concussion Bilateral leg edema Bilateral knee pain Constipation Sleep apnea Bronchitis COPD (chronic obstructive pulmonary disease) Bipolar 1 disorder PTSD (post-traumatic stress disorder) Obesity H. pylori infection Epigastric pain Left against medical advice Angioedema History of fatty infiltration of liver History of alcohol dependence History of heroin use Chronic knee pain Chronic back pain History of seizure History of panic disorder History of opioid abuse Depression HTN (hypertension) History of left bundle branch block (LBBB) Migraine Anxiety Asthma Family History Family History Mother Heart disease Arthritis HTN (hypertension) Family history of problems with anesthesia: No Surgical History Surgical History Hx of exploratory laparotomy Hx of colonoscopy History of Problems with Anesthesia: No Social History Social History Household Members: None Housing: House Are you a primary critical care physician assistant to a significant other at home: No Do you presently have visiting nurse or other home services: 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 If so, by whom?: No Are you DNR?: No Advance Directives: No Advance Directives Information Provided: No Advance Directives on File: No Patient : No : No service: No Current occupational status: unemployed and disabled Current occupation: rt hand Meds Allergies Allergy/AdvReac Type Severity Reaction Status Date / Time lisinopril Allergy Severe Angioedema Verified 02/02/25 08:28 hydroxyzine (HYDROXYZINE) AdvReac Intermediate reports Verified 02/02/25 08:28 redness and swelling Home Medications ?Medication ?Instructions ?Recorded ?Confirmed ?Last Taken ?Type cetirizine 10 mg tablet 10 mg PO DAILY 08/28/21 02/06/25 02/05/25 History naloxone 4 mg/actuation nasal 0 spray intranasal NEEDED PRN 08/28/21 02/06/25 02/05/25 History spray (Narcan) Opioid Reversal buprenorphine 8 mg-naloxone 2 mg 1 film sublingual TID 10/15/22 02/06/25 02/05/25 History sublingual film (Suboxone) calcium carbonate (Tums) 200 mg PO TID PRN Acid Reflux 01/05/25 02/06/25 Unknown History hydrochlorothiazide 25 mg tablet 25 mg PO DAILY 01/05/25 02/06/25 02/05/25 History prednisone 20 mg tablet 40 mg PO DAILY PRN Shortness Of 01/05/25 02/06/25 02/04/25 History Breath Or Wheezing fluticasone furoate 200 1 inh inhalation DAILY 01/27/25 02/06/25 02/05/25 History mcg/actuation blister powder for inhalation (Arnuity Ellipta) fluticasone propionate 50 2 spray intranasal DAILY PRN 01/27/25 02/06/25 02/05/25 History mcg/actuation nasal Allergy Symptoms spray,suspension omeprazole 40 mg capsule,delayed 40 mg PO QAM 01/27/25 02/06/25 02/05/25 History release triamcinolone acetonide 0.1 % 1 appl topical BID PRN Rash 01/27/25 02/06/25 Unknown History topical cream Exam Airway Mallampati Class: III TM Dist: >3cm Neck ROM: Full Heart: rrr Lungs: cta Assessment and Plan Assessment Anesthesia Assessment: Chart Reviewed Final Anesthetic Review Family History of Problems with Anesthesia: No History of Problems with Anesthesia: No NPO: Yes ASA Class: III Final Preanesthetic Review: No Changes in Pt Med Stat, Meds/Allgs Chart Reviewed, Consent Obtained/Reviewed and Anes Risks/Benef Reviewed Patient Risk: Intermediate Procedure Risk: Intermediate Anesthetic Plan Anesthetic Plan: GA, Spinal, Neuraxial Block:, Regional Block and Agree w/ Assess. and Plan Disposition: Standard PACU
[2025-01-05 12:32] VITALS: BP 123/74; PULSE 82; RESP 20; O2SAT 92; BMI 41.7
[2025-01-05 14:05] LABS: MRSA Nasal PCR NEGATIVE (Negative); SA Nasal PCR POSITIVE (Negative)
--- NOTE | 2025-01-25 11:02 | PM.DS ---
DS: Providers Provider Primary care physician: Juani Sosa NP Physical Exam Vital Signs: Vital Signs: Last Vital Signs Pulse 82 01/05/25 12:32 Resp 20 01/05/25 12:32 BP 123/74 01/05/25 12:32 Pulse Ox 92 01/05/25 12:32 O2 Del Method Room Air 01/05/25 12:32 BMI result Body Mass Index 41.7 Discharge Plan Discharge Patient Disposition: Home, Self-Care Referrals: Juani Sosa NP [Primary Care Provider, Internal Medicine] - 1 Week Discharge Medications: No Action aspirin 81 mg tablet,delayed release (DR/EC) 81 mg PO DAILY Qty: 90 3RF metoprolol succinate [Toprol XL] 25 mg tablet extended release 24 hr 25 mg PO DAILY Qty: 90 3RF (DME) remi Misc See Rx Instructions .MEDSUPPLY Qty: 1 0RF Rx Instructions: Folding front wheeled remi albuterol sulfate [ProAir HFA] 90 mcg/actuation HFA aerosol inhaler 2 puff inhalation Q4-6H PRN (Reason: Wheezing) Qty: 8.5 0RF acetaminophen 500 mg capsule 1,000 mg PO Q8H PRN (Reason: fever or pain) Qty: 14 0RF prednisone 20 mg tablet 40 mg PO DAILY PRN (Reason: Shortness Of Breath Or Wheezing) calcium carbonate [Tums] 200 mg calcium (500 mg) Tablet,Chewable 200 mg PO TID PRN (Reason: Acid Reflux) hydrochlorothiazide 25 mg tablet 25 mg PO DAILY nitrofurantoin monohyd/m-cryst [Macrobid] 100 mg capsule 100 mg PO Q12H 7 Days Qty: 14 0RF Rx Instructions: must administer with a meal/food cetirizine 10 mg tablet 10 mg PO DAILY clonidine HCl 0.1 mg tablet 0.1 mg PO BID naloxone [Narcan] 4 mg/actuation spray,non-aerosol 0 spray intranasal NEEDED PRN (Reason: Opioid Reversal) buprenorphine-naloxone [Suboxone] 8-2 mg film 2 film sublingual BID Print Language: Swedish
[2025-01-27 13:03] VITALS: BMI 42.6
[2025-02-02 09:27] LABS: Hematocrit 37.4 % (37.0-47.0); Hemoglobin 11.9 g/dl (12.0-16.0); Mean Corpuscular HGB Conc 31.8 g/dl (31.0-35.0); Mean Corpuscular Hemoglobin 28.3 pg (27.0-33.0); Mean Corpuscular Volume 88.8 fL (80.0-98.0); NRBC Abs Auto 0.000 X10*3/uL (0.0-0.012); NRBC Pct Auto 0.0 /100WBC (0.0-0.2); Platelet Count 322 X10*3/uL (160-400); Red Blood Count 4.21 X10*6/uL (4.20-5.50); White Blood Count 8.8 X10*3/uL (4.8-10.8)
[2025-02-02 09:49] LABS: INTERNATIONAL NORM RATIO 1.0 (0.9-1.1); Prothrombin Time 12.0 SEC (11.2-13.5)
[2025-02-02 09:53] LABS: Anion Gap 11 (12-20); Blood Urea Nitrogen 19 mg/dL (9-16); Calcium 8.9 mg/dL (8.4-10.2); Carbon Dioxide 32 mmol/L (22-29); Chloride 102 mmol/L (96-108); Creatinine Clr Calc Pharmacy 111.1; Estimated Glomerular Filt Rate > 60; Potassium 3.6 mmol/L (3.3-5.1); Sodium 141 mmol/L (135-145)
[2025-02-06] VITALS (10 sets, daily range): BP systolic 100–163; BP diastolic 48–83; PULSE 64–86; RESP 16–32; TEMP 36–36.4; O2SAT 92–99
[2025-02-06] MEDS: Lactated Ringers 1,000 ML 100 ML IVCONT ×3 (07:40→23:09)
--- NOTE | 2025-02-06 12:15 | PM.OP ---
Brief Operative Note Date of Service: 02/06/25 Pre-op diagnosis: Right knee degenerative joint disease Post-op diagnosis: same Procedure: Right total knee arthroplasty Implants: [place] Tri[employer]lon cemented posterior stabilized total knee arthroplasty with a femoral component size 3 right, tibial component size 2, polyethylene liner size 2 with 9 mm of thickness, a symmetric patellar component size 29 with 8 mm of thickness Surgeon: Tim Mcdermott MD Anesthesia: GETA and regional Was an Catering Operations Manager used for this Procedure?: No Catering Operations Manager: Josefa Soto Estimated blood loss (mL): 200 Pathology: other (Bony fragments from the right femur, tibia and patella) Condition: stable Disposition: PACU
--- NOTE | 2025-02-06 12:16 | P.OP_ITS ---
Operative Note Operative Note Date of Service: 02/06/25 Narrative: After the patient was identified as Gaby Arteaga and her right knee was initialed by myself the patient was brought to the holding area where a right leg nerve block was performed by the anesthesiologist in routine fashion. The patient was then brought to the operating room where general anesthesia was induced by the anesthesiologist in routine fashion. Because of the patient's obesity she was given both IV Ancef and IV vancomycin preoperatively for infection prophylaxis. The patient's right lower extremity was prepped and draped in sterile fashion. A formal time-out was completed. The patient's right knee was placed onto a small bump to produce 30? of knee flexion during exposure. A #10 scalpel blade was used to make a midline incision extending 1 handbreadth proximal and distal to the patella. A second #10 scalpel blade was used to dissect the subcutaneous tissues down to the extensor mechanism. The subcutaneous flaps were maintained as thick as possible. A medial parapatellar arthrotomy was then performed using a #10 scalpel blade. The arthrotomy was begun just medial to the patellar tendon. The arthrotomy was continued 1 cm medial to the patella and then 5 mm into the medial aspect of the quadriceps tendon. The infrapatellar fat pad was partially excised to help with exposure. The soft tissue retinaculum was raised one-half of the way around the medial aspect of the proximal tibia. The patella was everted and the knee was flexed to 90?. There was no injury to the patellar tendon or its insertion onto the tibial tubercle. A drill bit was introduced into the distal aspect of the femur with a starting point 1 cm anterior to the origin of the posterior cruciate ligament. The intramedullary alignment huong was put into place. The distal alignment guide was set for a 5 degree valgus cut. The distal cutting block was put into place and we held it with 4 pins. The intramedullary alignment huong was removed. Soft tissues were retracted in the distal femoral cut was made using a sagittal saw. The distal aspect of the femur measured to be a size 3 right component. Two drill holes were placed into the distal aspect of the femur marking 3? of external rotation. The distal cutting block was impacted into place and we held it with 2 pins. Soft tissues were retracted and the 4 distal femoral cuts were made using a sagittal saw. Final notching and drilling of the distal aspect of the femur were performed in routine fashion. The trial femoral component was impacted into place. The knee was taken through a full range of motion. The patella tracked well. The patella was everted and the knee was flexed to 90?. The trial component was removed and our attention was directed to the proximal tibia. The medial and lateral menisci were removed using a #10 scalpel blade. A small rim of the medial meniscus was left intact to help prevent injury to the medial collateral ligament. A drill bit was then introduced into the proximal tibia with a starting point midway from medial to lateral and one-third of the way posteriorly. The intramedullary alignment huong was put into place. The proximal tibial cutting guide was placed over the alignment huong in line with the 2nd toe. The guide was held in place using 3 pins. The intramedullary alignment huong was removed. Soft tissues were retracted and the proximal tibial cut was made using a sagittal saw. The proxi mal tibia measured to be a size 2 component. The tibial tray was put into place with a 9 mm liner. The femoral component was impacted into place. The knee was taken through a full range of motion. There was full flexion and full extension. There was no instability with varus or valgus stress testing with the knee in flexion or extension. The patella tracked well with no medially directed force. The rotation of the tibial tray was marked using electrocautery with the knee in extension. The patella was everted and the knee was flexed to 90?. All trial components were removed. The tibial tray was placed onto the proximal tibia in line with the electrocautery negro. The tray was held in place using 3 pins. Final broaching of the proximal tibia was performed in routine fashion. The trial liner and trial femoral component were put into place. The knee was brought into extension and our attention was directed to the patella. The patella measured 25 mm in thickness. The patellar resection guide was set for a 10 mm resection. Soft tissues were retracted and the patella cut was made using a sagittal saw. The remaining patella measured 15 mm in thickness. The undersurface of the patella was measured to be a size 29 symmetric component. Three drill holes were placed into the undersurface of the patella in routine fashion. The trial component was put into place. The knee was taken through a full range of motion. The patella tracked well. The patella was everted and the knee was flexed to 90?. All trial components were removed. The knee was once again brought into extension and placed onto a small bump. The knee joint was irrigated with copious amounts of normal saline solution via pulse lavage while the cement was mixed. The patella was everted and the knee was flexed to 90?. A small amount of cement was placed along the posterior aspects of the tibial and femoral components. Cement was then pressurized into the proximal tibia. The tibial component was impacted into place. Any excess cement was removed. The polyethylene liner was then impacted into place. Cement was then pressurized into the distal aspect of the femur. A small amount of cement was placed into the intramedullary canal to help reduce bleeding. The femoral component was impacted into place. Any excess cement was removed. The knee was then brought into extension. Cement was pressurized into the undersurface of the patella. The patellar component was put into place and was held with a patella clamp. Any excess cement was removed. Once the cement had hardened the patellar clamp was removed. The knee was taken through a full range of motion. There was full flexion and extension. There was no instability with varus or valgus stress testing with the knee in flexion or extension. The patella tracked well with no medially directed force. The knee joint was irrigated with copious amounts of normal saline solution via pulse lavage. Any significant bleeding vessels were coagulated. The patient's right knee was placed onto a small bump. The arthrotomy was closed with #2 Ethibond uwkgen-uz-suhmf interrupted suture as well as #1 Vicryl vincah-hi-hmwie interrupted suture. The wound was once again irrigated. The subcutaneous tissues were closed with 0 Vicryl and 2-0 Vicryl interrupted sutures. The skin was closed with skin gomez. Dry sterile dressing and Telly bandages were placed over the patient's right knee. The patient was awoken and extubated in the operating room. The patient was transferred to the recovery room in stable condition. Justification for PA Business Analytics Director: The complexity of this total knee arthroplasty, involving significant bony deformity and soft tissue releases, necessitates the assistance of a qualified media center assistant for optimal surgical exposure, hemostasis and efficient execution of the procedure.
[2025-02-06] MEDS: oxyCODONE HCl Immed Release 5 MG TABLET PO (12:57)
[2025-02-06] MEDS: oxyCODONE HCl ER 10 MG TAB.ER.12H PO ×2 (12:57→21:43)
--- NOTE | 2025-02-06 13:14 | PHA.MEDREC ---
Pharmacy Consult ? Medication Reconciliation Pharmacy has completed the medication reconciliation. Checked med rec done by nursing. Matches claim history
--- NOTE | 2025-02-06 19:06 | P.CONHOSP_ITS ---
History of Present Illness Data of Consult Service Date: 02/06/25 Primary Care Provider: Juani Sosa NP HPI Reason for consult: Routine medical management The pt is a 59-year-old female with a PMH significant for essential hypertension, mild intermittent asthma, osteoarthritis, polysubstance use disorder on Suboxone, and chronic LBBB who was admitted to the hospital under orthopedic services for elective right TKA. Hospitalist consult for routine medical management. pt seen and evaluated in her room where she complains of poorly controlled right knee pain. Pt has been up and out of bed to the bathroom and bedside commode. Pt with a hx of heroin use currently on Suboxone and pain has been difficult to adequately control. Pt otherwise has no acute medical complaints. No nausea or vomiting. Has been able to tolerate solid diet. No nausea or vomiting. No difficulty breathing or SOB. Denies chest pain. Review of Systems 2 Review of Systems: Negative except for that which is stated in the HPI. [facility] Medical History Tobacco dependence in remission Panic disorder Uncomplicated opioid dependence Moderate alcohol dependence in sustained remission GERD (gastroesophageal reflux disease) Arthritis Concussion Bilateral leg edema Bilateral knee pain Constipation Sleep apnea Bronchitis COPD (chronic obstructive pulmonary disease) Bipolar 1 disorder PTSD (post-traumatic stress disorder) Obesity H. pylori infection Epigastric pain Left against medical advice Angioedema History of fatty infiltration of liver History of alcohol dependence History of heroin use Chronic knee pain Chronic back pain History of seizure History of panic disorder History of opioid abuse Depression HTN (hypertension) History of left bundle branch block (LBBB) Migraine Anxiety Asthma Family History Mother Heart disease Arthritis HTN (hypertension) Surgical History Hx of exploratory laparotomy Hx of colonoscopy Social History Household Members: None Housing: House Are you a primary pet caretaker to a significant other at home: No Do you presently have visiting nurse or other home services: Yes ([employer]) Alcohol intake: current Alcohol intake frequency: does not drink Patient Tobacco Use Status: Former Tobacco user Years Smoked: 10 +/- Use of substances other than those prescribed or required for medical reasons: No Substance Use Type: Inhalants Currently Displaying Signs/Symptoms of Drug Intoxication Withdrawal: No Have you been hit, kicked, punched, or otherwise hurt by someone within the past year? If so, by whom?: No Are you DNR?: No Advance Directives: No Advance Directives Information Provided: No Advance Directives on File: No Patient : No : No service: No Current occupational status: unemployed and disabled Current occupation: rt hand Meds Allergies Allergy/AdvReac Type Severity Reaction Status Date / Time lisinopril Allergy Severe Angioedema Verified 02/02/25 08:28 hydroxyzine (HYDROXYZINE) AdvReac Intermediate reports Verified 02/02/25 08:28 redness and swelling Active Medications: Current Medications Acetaminophen (Acetaminophen 325 Mg Tablet) 650 mg PO Q6H PRN On Hold: 02/06/25 14:43 PRN Reason: Pain, Mild 1-3,fever,headache Last Admin: 02/06/25 12:57 Dose: 650 mg Albuterol Sulfate (Albuterol Sulfate (0.083%) 2.5 Mg/3 Ml Vial.Neb) 2.5 mg INHALE ONCE PRN PRN Reason: Shortness of Breath/Wheezing Albuterol Sulfate (Albuterol Sulfate 90 Mcg 8 Gm Inhaler) 2 puff INHALE RQ4H PRN PRN Reason: Wheezing Aspirin (Aspirin 325 Mg Tablet) 325 mg PO BID [facility], [facility]1983 Buprenorphine/Naloxone (Buprenorphine/Naloxone 8/2 Mg Film) 1 film SUBLINGUAL TID [facility], [facility]1983 Last Admin: 02/06/25 15:33 Dose: 1 film Calcium Carbonate (Calcium Carbonate 750 Mg Tab.Chew) 375 mg PO TID PRN PRN Reason: Acid Reflux Celecoxib (Celecoxib 200 Mg Capsule) 200 mg PO BID [facility], [facility]1983 Last Admin: 02/06/25 13:50 Dose: 200 mg Docusate Sodium (Docusate Sodium 100 Mg Capsule) 100 mg PO BID [facility], [facility]1983 Last Admin: 02/06/25 13:51 Dose: 100 mg Fluticasone Propionate (Fluticasone Propionate 250 Mcg Blst.W.Dev) 1 puff INHALE RBID [facility], [facility]1983 Fluticasone Propionate (Fluticasone Propionate Nasal 16 Gm [place]) 2 spray NOSTRIL-B DAILY PRN PRN Reason: Allergy Symptoms Gabapentin (Gabapentin 100 Mg Capsule) 100 mg PO BEDTIME [facility], [facility]1983 Hydrochlorothiazide (Hydrochlorothiazide 25 Mg Tablet) 25 mg PO DAILY [facility], [facility]1983; Protocol Hydromorphone HCl (Hydromorphone Hcl 1 Mg/Ml Syringe) 0.5 mg IVPUSH Q3H PRN; Protocol PRN Reason: Pain, Severe (Pain Scale 7-10) Lactated Ringer's (Lr) 1,000 mls @ 100 mls/hr IVCONT .Q10H [facility], [facility]1983 Last Admin: 02/06/25 12:43 Dose: 100 mls/hr Cefazolin Sodium/Dextrose (Ancef) 2 gm in 50 mls @ 100 mls/hr IV Q8H [facility]1983 Stop: 02/07/25 14:59 Last Infusion: 02/06/25 15:32 Dose: Infused Vancomycin HCl 1,500 mg/ (Sodium Chloride) 500 mls @ 333.333 mls/hr IV POSTOP ONE Stop: 02/06/25 21:29 Acetaminophen (Ofirmev) 1,000 mg in 100 mls @ 400 mls/hr IV Q6H [facility], [facility]1983 Stop: 02/07/25 08:59 Last Infusion: 02/06/25 15:47 Dose: Infused Loratadine (Loratadine 10 Mg Tablet) 10 mg PO DAILY [facility] Last Admin: 02/06/25 13:51 Dose: 10 mg Magnesium Hydroxide (Milk Of Magnesia 30 Ml Oral.Susp) 30 ml PO DAILY PRN PRN Reason: Constipation Melatonin (Melatonin 3 Mg Tablet) 6 mg PO BEDTIME PRN PRN Reason: Insomnia Methocarbamol (Methocarbamol 500 Mg Tablet) 500 mg PO TID [facility] Last Admin: 02/06/25 16:16 Dose: Not Given Metoprolol Succinate (Metoprolol Succinate Er 25 Mg Tab.Er.24h) 25 mg PO DAILY [facility]; Protocol Naloxone HCl (Naloxone Hcl 0.4 Mg/Ml Vial) 0.04 mg IVPUSH Q5M PRN PRN Reason: Excessive sedation or RR < 8 Naloxone HCl (Naloxone Hcl Nasal 4 Mg [place]) 1 mg NOSTRILALT DAILY PRN PRN Reason: Opioid Reversal Omeprazole (Omeprazole 40 Mg Capsule.Dr) 40 mg PO DAILY@0630 [facility] Last Admin: 02/06/25 13:51 Dose: 40 mg Ondansetron HCl (Ondansetron Hcl 4 Mg/2 Ml Vial) 4 mg IVPUSH Q8H PRN PRN Reason: Nausea and Vomiting Oxycodone HCl (Oxycodone Hcl Er 10 Mg Tab.Er.12h) 10 mg PO BID [facility] Last Admin: 02/06/25 12:57 Dose: 10 mg Oxycodone HCl (Oxycodone Hcl Immed Release 5 Mg Tablet) 10 mg PO Q4H PRN PRN Reason: Pain, Moderate(Pain Scale 4-6) Pharmacy Consult (Consult Rx Vancomycin Dosing) 1 each MISCELLANE DAILY PRN PRN Reason: Consult order Prednisone (Prednisone 20 Mg Tablet) 40 mg PO DAILY PRN PRN Reason: Shortness Of Breath Or Wheezing Sodium Chloride (0.9 % Sodium Chloride Flush 3 Ml Syringe) 3 ml IVFLUSH QSHIFT [facility] Last Admin: 02/06/25 15:35 Dose: Not Given Triamcinolone Acetonide (Triamcinolone Acet 0.1 % Cream 15 Gm Tube) 1 appl TOPICAL BID PRN; Protocol PRN Reason: Rash Home Medications ?Medication ?Instructions ?Recorded ?Confirmed ?Last Taken ?Type cetirizine 10 mg tablet 10 mg PO DAILY 08/28/2101/2102/05/25 History naloxone 4 mg/actuation nasal 0 spray intranasal NE EDED PRN 08/28/21 02/06/25 02/05/25 History spray (Narcan) Opioid Reversal buprenorphine 8 mg-naloxone 2 mg 1 film sublingual TID 10/15/22 02/06/25 02/05/25 History sublingual film (Suboxone) calcium carbonate (Tums) 200 mg PO TID PRN Acid Reflu x 01/05/25 02/06/25 Unknown History hydrochlorothiazide 25 mg tablet 25 mg PO DAILY 02/06/25 02/05/25 History prednisone 20 mg tablet 40 mg PO DAILY PRN Shortness Of 01/05/25 02/06/25 02/04/25 History Breath Or Wheezing fluticasone furoate 200 1 inh inhalation DAILY 01/2702/06/25 02/05/25 History mcg/actuation blister powder for inhalation (Arnuity Ellipta) fluticasone propionate 50 2 spray intranasal DAILY PRN 01/27/25 02/06/25 02/05/25 History mcg/actuation nasal Allergy Symptoms spray,suspension omeprazole 40 mg capsule,delayed 40 mg PO QAM 01/27/25 02/06/25 02/05/25 History release triamcinolone acetonide 0.1 % 1 appl topical BID PRN R reno 01/27/25 02/06/25 Unknown History topical cream Physical Exam 2 Vital Signs and Narrative: Vital Signs: Last Vital Signs Temp 97.0 F 02/06/25 15:03 Pulse 71 02/06/25 15:03 Resp 18 02/06/25 15:03 BP 163/83 H 02/06/25 15:03 Pulse Ox 98 02/06/25 15:03 O2 Del Method Nasal Cannula 02/06/25 15:03 O2 Flow Rate 2.0 02/06/25 15:03 BMI result Body Mass Index 42.6 General: AOx3, uncomfortable, crying out in pain Resp: CTA bilaterally CVS: S1, S2, RRR GI: +BS, NT, no distention Skin: Warm, dry Neuro: Cranial nerves II-XII grossly intact bilaterally. Motor grossly intact bilaterally Extremities: No edema. Right knee appropriately tender at surgical site, wrapped in clean dressing Psych: Crying out in pain Results Labs 02/02/25 09:14 02/02/25 09:14 Assessment and Plan (1) History of total right knee replacement: Status: Acute Plan The pt is a 59-year-old female with a PMH significant for essential hypertension, mild intermittent asthma, osteoarthritis, polysubstance use disorder on Suboxone, and chronic LBBB who was admitted to the hospital under orthopedic services for elective right TKA. Hospitalist consult for routine medical management. Right TKA POD 0 Pain not well controlled Will increase Dilaudid due to hx of heroin use and currently on Suboxone Plan as per Orthopedics Essential hypertension BP currently elevated likely secondary to pain Continue hydrochlorothiazide and metoprolol BP should be better controlled while on home medications and with pain managed Mild intermittent asthma Not in acute exacerbation Continue home inhalers Polysubstance use disorder Continue Suboxone Thank you for allowing us to participate in the care of this pt med reconciliation now complete. Will sign off for now. Please reach out if any acute issue or need arises.
[2025-02-06] MEDS: oxyCODONE HCl Immed Release 5 MG TABLET 10 MG PO (19:09)
[2025-02-06] MEDS: Fluticasone Propionate 250 MCG BLST.W.DEV 1 PUFF INHALE (19:46)
[2025-02-07] VITALS (9 sets, daily range): BP systolic 94–130; BP diastolic 54–66; PULSE 65–91; RESP 16–18; TEMP 35.9–36.7; O2SAT 93–96
--- NOTE | 2025-02-07 02:46 | PC.NURSE ---
Patient's manual BP at 2127 was 180/72. Adminstered the patients scheduled hydralazine. Patients BP at 2332 was 176/74. Notified PA La via [employer]. Per PA continue to monitor, no new orders at this time.
[2025-02-07 05:41] LABS: MANUAL DIFF FLAG NO
[2025-02-07 05:44] LABS: Hematocrit 28.8 % (37.0-47.0); Hemoglobin 9.5 g/dl (12.0-16.0); Imm Gran Abs Auto 0.04 X10*3/uL (0.00-0.03); Imm Gran Pct Auto 0.5 % (0.0-0.4); Lymphocytes Absolute Auto 1.4 X10*3/uL (1.2-4.9); Mean Corpuscular HGB Conc 33.0 g/dl (31.0-35.0); Mean Corpuscular Hemoglobin 28.5 pg (27.0-33.0); Mean Corpuscular Volume 86.5 fL (80.0-98.0); NRBC Abs Auto 0.000 X10*3/uL (0.0-0.012); NRBC Pct Auto 0.0 /100WBC (0.0-0.2); Platelet Count 294 X10*3/uL (160-400); Red Blood Count 3.33 X10*6/uL (4.20-5.50); White Blood Count 8.9 X10*3/uL (4.8-10.8)
[2025-02-07 06:00] LABS: Anion Gap 11 (12-20); Blood Urea Nitrogen 12 mg/dL (9-16); Calcium 8.3 mg/dL (8.4-10.2); Carbon Dioxide 27 mmol/L (22-29); Chloride 103 mmol/L (96-108); Creatinine Clr Calc Pharmacy 107.7; Estimated Glomerular Filt Rate > 60; Potassium 4.0 mmol/L (3.3-5.1); Sodium 137 mmol/L (135-145)
[2025-02-07] MEDS: Fluticasone Propionate 250 MCG BLST.W.DEV 1 PUFF INHALE ×2 (07:52→20:03)
--- NOTE | 2025-02-07 08:31 | PM.PNORT ---
Subjective Subjective Date of Service: 02/07/25 Interval history: POD1 s/p RTKA Patient is resting in bed comfortably Overnight the patient was complaining of pain - meds were adjusted Pain is managed No additional complaints Physical Exam Vital Signs: Vital Signs: Last Vital Signs Temp 98.0 F 02/07/25 07:37 Pulse 82 02/07/25 07:53 Resp 16 02/07/25 07:53 BP 94/54 L 02/07/25 07:37 Pulse Ox 94 02/07/25 07:37 O2 Del Method Room Air 02/07/25 07:37 O2 Flow Rate 2.0 02/06/25 15:03 BMI result Body Mass Index 42.6 Extrem: Other: right knee dressing is c/d/i. Able to dorsi/plantar flex. Calf is supple and nontender. Sensation intact. Pedal pulse intact. Procedures Date of Service Date of Service: 02/07/25 Progress Note: A&P Assessment and plan (1) Status post total knee replacement, right: Status: Acute Plan Continue pain mgmnt POD0 ASA begun at 18:00 for dvt ppx Continue PT for RTKA Dispo planning- Continue PT - patient would like to go home, continue pain mgmnt Time Spent With Patient Time: Total time managing care of this patient today ____ minutes. Quality Stroke Does the patient have a stroke diagnosis?: No VTE Prior VTE?: No VTE Risk Level:: Medical - moderate - high VTE Device Contraindication: N/A - Device Ordered VTE Drug Contraindication: N/A - Med Ordered
--- NOTE | 2025-02-07 08:50 | HO.POSTANES ---
Post Anesthesia Evaluation Post Anesthesia Evaluation Date of Service: 02/07/25 Vital Signs: Vital Signs Temp Pulse Resp BP Pulse Ox O2 Del Method 02/07/25 07:53 82 16 02/07/25 07:37 98.0 F 82 16 94/54 L 94 Room Air 02/07/25 03:18 97.3 F 81 18 123/58 L 96 Room Air 02/06/25 23:32 97.6 F 86 18 132/64 95 Room Air Anesthesia: Nerve Block and General Mental Status: Awake Pain Control: Satisfactory Nausea/Vomiting: None Hydration: Adequate Anesthesia-Related Issues: No Anes. Related Issues
[2025-02-07] MEDS: oxyCODONE HCl ER 10 MG TAB.ER.12H PO ×2 (08:52→20:33)
[2025-02-07] MEDS: Metoprolol Succinate ER 25 MG TAB.ER.24H PO (08:53)
--- NOTE | 2025-02-07 09:39 | MHC.CM.PN ---
S/P RTKA Lives alone She receives assist from [employer] walker, wheeled walker, tub chair + cane [facility] has been referred by Nurse Navigator DP Home resumption [employer] services New NA. Patient has arranged for a friend to provide transportation home. A new HCP has been documented PCP Juani Sosa Subavani prescribed
--- NOTE | 2025-02-07 11:28 | P.DS_ITS ---
DS: Providers Provider Date of Service: 02/08/25 Date of discharge: 02/08/25 Primary care physician: Juani Sosa NP Consults: 02/06/25 12:29 Consult to Case Management Routine Comment: Home with services Consult to Hospitalist Routine Comment: Consulting Provider: [facility] Hospitalists Reason For Exam: routine medical management DS: Diagnosis Discharge Diagnosis (1) Status post total knee replacement, right: Status: Acute DS: Summary Hospital Course Hospital Course: The patient underwent a successful right total knee arthroplasty, they were transferred to PACU and then to the floor to recover. During their stay, their vitals were stable, afebrile at 98. Labs were unremarkable, H/H 9.4/29.7. POD0 they were started on Aspirin 325mg po bid for DVT ppx, they also received Physical Therapy services. Prior to discharge, their dressing was clean dry and intact and the plan was to be discharged home with [facility]NA services. Time Attestation Discharge Coordination Time (in mins): 30 Quality: Safe Use of Opioids Does Pt have an Active Cancer Diagnosis on the Problem List?: No Quality: Stroke Does the patient have a stroke diagnosis?: No Physical Exam Vital Signs: Vital Signs: Last Vital Signs Temp 98.0 F 02/07/25 07:37 Pulse 86 02/07/25 08:50 Resp 16 02/07/25 07:53 BP 119/66 02/07/25 08:50 Pulse Ox 94 02/07/25 07:37 O2 Del Method Room Air 02/07/25 07:37 O2 Flow Rate 2.0 02/06/25 15:03 BMI result Body Mass Index 42.6 Extrem: Other: right knee dressing is c/d/i. Able to dorsi/plantar flex. Calf is supple and nontender. Sensation intact. Pedal pulse intact. DS: Data Data Completed and Pending Pending studies at discharge: Pending at discharge 02/06/25 10:48 Surgical [PTH] Routine Labs on day of discharge: Laboratory Results - last 24 hr 02/07/25 05:14 WBC 8.9 RBC 3.33 L D Hgb 9.5 L D Hct 28.8 L D MCV 86.5 MCH 28.5 MCHC 33.0 RDW 12.9 Plt Count 294 MPV 9.0 L Immature Gran % (Auto) 0.5 H Neut % (Auto) 72.3 Lymph % (Auto) 15.6 L [place] % (Auto) 11.4 H Eos % (Auto) 0.1 Baso % (Auto) 0.1 Lymph # (Auto) 1.4 [place] # (Auto) 1.0 Eos # (Auto) 0.0 Baso # (Auto) 0.0 Abs Immat Gran (auto) 0.04 H Absolute Neuts (auto) 6.4 Absolute Nucleated RBC 0.000 Nucleated RBC % (auto) 0.0 Sodium 137 Potassium 4.0 Chloride 103 Carbon Dioxide 27 Anion Gap 11 L BUN 12 Creatinine 0.65 Estim Creat Clear Calc 107.7 Estimated GFR > 60 Fasting Glucose 167 H Calcium 8.3 L D Discharge Plan Discharge Patient Disposition: Home Health Service Referrals: Josefa Soto PA-C [Physician Body Make Up Artist, Orthopedics] - 02/23/25 2:00 pm Discharge Medications: New celecoxib 200 mg Capsule 200 mg PO BID 30 Days Qty: 60 0RF methocarbamol 500 mg Tablet 500 mg PO TID 7 Days Qty: 21 0RF acetaminophen 325 mg Tablet 650 mg PO Q6H PRN (Reason: Pain, Mild 1-3,Fever,Headache) 30 Days Qty: 240 0RF aspirin 325 mg Tablet 325 mg PO BID 42 Days Qty: 84 0RF gabapentin 100 mg Capsule 100 mg PO BEDTIME 7 Days Qty: 7 0RF oxycodone 10 mg tablet 10 mg PO Q4H PRN (Reason: Pain, Moderate(Pain Scale 4-6)) 7 Days Qty: 42 0RF Rx Instructions: Partial Fill upon patient request. docusate sodium 100 mg Capsule 100 mg PO BID 30 Days Qty: 60 0RF Continued metoprolol succinate [Toprol XL] 25 mg tablet extended release 24 hr 25 mg PO DAILY Qty: 90 3RF (DME) remi Misc See Rx Instructions .MEDSUPPLY Qty: 1 0RF Rx Instructions: Yaneth khalil albuterol sulfate [ProAir HFA] 90 mcg/actuation HFA aerosol inhaler 2 puff inhalation Q4-6H PRN (Reason: Wheezing) Qty: 8.5 0RF prednisone 20 mg tablet 40 mg PO DAILY PRN (Reason: Shortness Of Breath Or Wheezing) calcium carbonate [Tums] 200 mg calcium (500 mg) Tablet,Chewable 200 mg PO TID PRN (Reason: Acid Reflux) hydrochlorothiazide 25 mg tablet 25 mg PO DAILY fluticasone propionate 50 mcg/actuation spray,suspension 2 spray intranasal DAILY PRN (Reason: Allergy Symptoms) fluticasone furoate [Arnuity Ellipta] 200 mcg/actuation blister with device 1 inh INHALATION DAILY omeprazole 40 mg capsule,delayed release(DR/EC) 40 mg PO QAM triamcinolone acetonide 0.1 % cream 1 appl topical BID PRN (Reason: Rash) cetirizine 10 mg tablet 10 mg PO DAILY naloxone [Narcan] 4 mg/actuation spray,non-aerosol 0 spray intranasal NEEDED PRN (Reason: Opioid Reversal) buprenorphine-naloxone [Suboxone] 8-2 mg film 1 film sublingual TID Discontinued aspirin 81 mg tablet,delayed release (DR/EC) 81 mg PO DAILY Qty: 90 3RF acetaminophen 500 mg capsule 1,000 mg PO Q8H PRN (Reason: fever or pain) Qty: 14 0RF Discharge Orders: Discharge Order (Routine); Ordered 02/08/25 Ordered By: Josefa Soto Diet: Advance to usual diet Activity on Discharge: Use cane or walker Activity Restrictions/Additional Instructions: -Bandage/Incision Site Care: -Ice 20mins at a time -Make sure you use a towel or cloth on your skin as a barrier -DO NOT remove the bandage -Keep Bandage clean, dry and intact -Do not get the bandage wet: -No tub bath, pools or hot tubs -If there are any concerns regarding the bandage please call orthopedics: [phone] -Knee Precautions: -Refrain from putting pillows under the knee -Keep leg straight while resting the knee -Avoid low chairs and deep couches -Use supportive shoes with nonslip soles -Physical Therapy: -Patient is WBAT with the use of a walker -Range of Motion: 0-120 degrees. -Strengthening: Quadriceps and hip muscles -Walking: Gait training and gradually increasing distance with walker -Ankle pumps and incentive spirometry to limit the risk of blood clot -No driving for 6 weeks -Diet: -Resume regular diet as tolerated. -Drink plenty of fluids and eat a high-fiber foods to avoid constipation -This is a common side effect of pain medication) -Take stool softeners as prescribed -Blood Clot Prevention: -Take the prescribed blood thinner (Aspirin) as directed for 6 weeks -Perform ankle pumps and walk frequently with the walker and assistance if needed -Report calf pain, swelling, or shortness of breath immediately Print Language: Marshallese
--- NOTE | 2025-02-07 11:31 | P.F2F_ITS ---
Service Date Service Date: 02/07/25 Encounter Date of encounter: 02/08/25 Reasons for Services Signs and symptoms assessed: s/p RTKA Pt. is considered homebound due to recent surgery. Unable to drive, poor balance, poor gait mechanics. Reason for physical therapy: home safety and mobility, therapeutic exercises, restore joint function, gait/transfer training and ADL training Homebound: Leaving the home is medically contraindicated at this time without the asist of a device and/or another person due th the listed conditions above and below. Reason homebound: unsteady gait / fall risk, leg weakness, pain with ambulation, pain with transfers, poor balance / fall risk and unable to drive Certification: Based on the above findings, I certify that this patient is confined to the home and needs intermittent [facility] care, physical therapy and/or speech th erapy, or continues to need occupational therapy. The patient is under my care, and I have initiated the establishment of the plan of care. The patient will be followed by a physician who will periodically review the plan of care. Time Spent With Patient Time: Total time managing care of this patient today ____ minutes.
[2025-02-07] MEDS: 0.9 % Sodium Chloride Flush 3 ML SYRINGE IVFLUSH ×2 (16:20→20:34)
[2025-02-08 02:10] VITALS: BP 113/56; PULSE 80; RESP 18; TEMP 36.1; O2SAT 95
[2025-02-08 06:14] LABS: MANUAL DIFF FLAG NO
[2025-02-08 06:17] LABS: Hematocrit 29.7 % (37.0-47.0); Hemoglobin 9.4 g/dl (12.0-16.0); Imm Gran Abs Auto 0.03 X10*3/uL (0.00-0.03); Imm Gran Pct Auto 0.3 % (0.0-0.4); Lymphocytes Absolute Auto 2.3 X10*3/uL (1.2-4.9); Mean Corpuscular HGB Conc 31.6 g/dl (31.0-35.0); Mean Corpuscular Hemoglobin 28.0 pg (27.0-33.0); Mean Corpuscular Volume 88.4 fL (80.0-98.0); NRBC Abs Auto 0.000 X10*3/uL (0.0-0.012); NRBC Pct Auto 0.0 /100WBC (0.0-0.2); Platelet Count 263 X10*3/uL (160-400); Red Blood Count 3.36 X10*6/uL (4.20-5.50); White Blood Count 9.0 X10*3/uL (4.8-10.8)
[2025-02-08 06:34] LABS: Anion Gap 11 (12-20); Blood Urea Nitrogen 16 mg/dL (9-16); Calcium 8.3 mg/dL (8.4-10.2); Carbon Dioxide 28 mmol/L (22-29); Chloride 105 mmol/L (96-108); Creatinine Clr Calc Pharmacy 114.8; Estimated Glomerular Filt Rate > 60; Potassium 3.6 mmol/L (3.3-5.1); Sodium 140 mmol/L (135-145)
[2025-02-08 06:42] VITALS: BP 121/59; PULSE 85; RESP 16; TEMP 36.6; O2SAT 98
[2025-02-08] MEDS: oxyCODONE HCl ER 10 MG TAB.ER.12H PO (07:06)
[2025-02-08] MEDS: Metoprolol Succinate ER 25 MG TAB.ER.24H PO (07:07)
[2025-02-08] MEDS: 0.9 % Sodium Chloride Flush 3 ML SYRINGE IVFLUSH (07:07)
--- NOTE | 2025-02-08 09:42 | MHC.CM.PN ---
Patient s/p TKA is discharged today. She with receive home services from [facility]. Patient has arranged for private transportation home.
[2025-02-08 10:18] VITALS: BP 121/72; PULSE 83; RESP 18; TEMP 36.4; O2SAT 95
== END 2025-02-08 10:52 | disposition home health service (06) ==
LOC: HO.SSS 07:06 → HO.S3 10:18
PROVIDERS: Physician Assistant; PCP Nurse Practitioner Primary Care; Visit Provider Orthopaedic Surgery
PROC: (CPT 27447; principal; 2025-02-06 08:30)
DX: M17.11 Unilateral primary osteoarthritis, right knee (principal); M25.561 Pain in right knee; R60.0 Localized edema; R26.2 Difficulty in walking, not elsewhere classified; E66.9 Obesity, unspecified; J44.9 Chronic obstructive pulmonary disease, unspecified; Z68.42 Body mass index [BMI] 45.0-49.9, adult; I10 Essential (primary) hypertension; I44.7 Left bundle-branch block, unspecified; J45.20 Mild intermittent asthma, uncomplicated; K21.9 Gastro-esophageal reflux disease without esophagitis; F41.9 Anxiety disorder, unspecified; G43.909 Migraine, unspecified, not intractable, without status migrainosus; F19.10 Other psychoactive substance abuse, uncomplicated; F11.20 Opioid dependence, uncomplicated; F10.21 Alcohol dependence, in remission; F43.10 Post-traumatic stress disorder, unspecified; Z79.82 Long term (current) use of aspirin; Z79.51 Long term (current) use of inhaled steroids; Z79.52 Long term (current) use of systemic steroids; Z79.899 Other long term (current) drug therapy; Z99.89 Dependence on other enabling machines and devices; Z88.8 Allergy status to other drugs, medicaments and biological substances; Z87.891 Personal history of nicotine dependence
CPT/HCPCS: 27447; 36415; 80048; 83036; 85025; 85027; 85610; 86850; 86900; 86901; 87640; 87641; 88305; 88311; 97110; 97116; 97162; 97530; A6260; C1776; J0131; J0665; J0690; J1100; J1171; J2003; J2151; J2250; J2371; J2704; J2795; J3010; J3374; J7120

== ENCOUNTER → 2025-02-06 07:05 | Outpatient (BNV) | payer MEDICAID, SELFPAY | PROVIDERS: PCP Nurse Practitioner Primary Care; Visit Provider Student in an Organized Health Care Education/Training Program | DX: Z96.651 Presence of right artificial knee joint (principal) | CPT/HCPCS: 99223 ==

== ENCOUNTER → 2025-02-06 07:05 | Outpatient (BNV) | payer MEDICAID, SELFPAY | PROVIDERS: PCP Nurse Practitioner Primary Care; Visit Provider Orthopaedic Surgery | DX: Z47.1 Aftercare following joint replacement surgery (principal); Z96.651 Presence of right artificial knee joint | CPT/HCPCS: 27447; 99024; G0180 ==

== ENCOUNTER 2025-02-23 13:39 | Outpatient (AMB) | payer MEDICAID, SELFPAY ==
--- NOTE | 2025-02-23 14:14 | A.OFFVIS_ITS ---
Vital Signs 02/23/25 14:15 Height 5 ft 1 in Weight 267 lb BMI 50.4 Intake Visit Reasons: 2WKPO: R TKA w/ 02/06/25 Intake Note: Gaby is a 59 year old female who presents today for a post operative appointment status post right total knee arthroplasty 02/06/[address] Mcdermott. Patient reports lost pain and swelling walking with a walker . Next appointment w/ 03/22/25 @ 09:15 Allergies lisinopril Allergy (Severe, Verified 02/23/25 14:17) Angioedema hydroxyzine (HYDROXYZINE) Adverse Reaction (Intermediate, Verified 02/23/25 14:17) reports redness and swelling HPI HPI 2WKPO: R TKA w/ 02/06/25: Details: Ms. Arteaga is a 59-year-old female who presents to the office today status post right total knee arthroplasty performed on 02/06/[address] Johnson. She has been working with physical therapy at home. She reports she ran out of her narcotic pain medication yesterday and is looking for a refill. [facility] Medical History Tobacco dependence in remission Panic disorder Uncomplicated opioid dependence Moderate alcohol dependence in sustained remission GERD (gastroesophageal reflux disease) Arthritis Concussion Bilateral leg edema Bilateral knee pain Constipation Sleep apnea Bronchitis COPD (chronic obstructive pulmonary disease) Bipolar 1 disorder PTSD (post-traumatic stress disorder) Obesity H. pylori infection Epigastric pain Left against medical advice Angioedema History of fatty infiltration of liver History of alcohol dependence History of heroin use Chronic knee pain Chronic back pain History of seizure History of panic disorder History of opioid abuse Depression HTN (hypertension) History of left bundle branch block (LBBB) Migraine Anxiety Asthma Surgical History Hx of exploratory laparotomy Hx of colonoscopy Family History Mother Heart disease Arthritis HTN (hypertension) Social History Household Members: None Housing: House Are you a primary career development director to a significant other at home: No Do you presently have visiting nurse or other home services: Yes ([employer]) Alcohol intake: current Alcohol intake frequency: does not drink Patient Tobacco Use Status: Former Tobacco user Years Smoked: 10 +/- Substance Use Type: Inhalants service: No Current occupational status: unemployed and disabled Current occupation: rt hand Review of Systems Const All systems reviewed & are unremarkable except as noted in HPI and below Physical Exam Vital Signs: BMI result Body Mass Index 50.4 Const General: cooperative, healthy appearing and no acute distress Resp Effort & Inspection: normal respiratory effort and able to speak in complete sentences Extrem Other: Right knee incision site clean dry and intact. [place] intact. No surrounding erythema or drainage. No signs of infection. Range of motion is 0-100 degrees. NVI. Psych Appearance: grossly normal Mental Status: mental status grossly normal Attitude: cooperative Assessment & Plan Assessment & Plan (1) Status post total knee replacement, right: Code(s): Z96.651 - Presence of right artificial knee joint Category: Surgical Plan Ms. Arteaga is a 59-year-old female who presents to the office today status post right total knee arthroplasty performed on 02/06/[address] Johnson. She has been working with physical therapy at home. She reports she ran out of her narcotic pain medication yesterday and is looking for a refill. While in the office today, patient is using a Rollator walker to assist with ambulation. Marcia were removed and Steri-Strips were applied. She was enco uraged to attend outpatient physical therapy which begins on 02/27/2025. She will continue anticoagulation x6 weeks. She will follow up in [address] Biggs, sooner if needed. X-rays of the right knee which were obtained while in the office today and were reviewed by me, Josefa Soto PA-C, revealed intact right total knee arthroplasty with satisfactory alignment. Orders: Orders XR knee RT 3V Today M25.569 - Pain in unspecified knee Medications: Changed From oxycodone Partial Fill upon patient request. 10 mg PO Q4H 7 days PRN 42 tabs 0RF Pain, Moderate(Pain Scale 4-6) To oxycodone Partial Fill upon patient request. 10 mg PO Q6H PRN 28 tabs 0RF Pain, Moderate(Pain Scale 4-6) 7 days Coding Level of Care Code Global (54132) Diagnoses Status post total knee replacement, right Z96.655
[2025-02-23 14:15] VITALS: BMI 50.4
== END 2025-02-23 14:55 | disposition home or self-care (01) ==
LOC: HO.HOS 13:40
PROVIDERS: PCP Nurse Practitioner Primary Care; Visit Provider Physician Assistant
DX: Z96.651 Presence of right artificial knee joint (principal)
CPT/HCPCS: 99024

== ENCOUNTER → 2025-02-23 13:45 | Outpatient (BNV) | payer MEDICAID, SELFPAY | PROVIDERS: Visit Provider Radiology Diagnostic Radiology | DX: M25.561 Pain in right knee (principal); Z96.651 Presence of right artificial knee joint | CPT/HCPCS: 73562 ==

== ENCOUNTER 2025-02-23 15:10 | Outpatient (REF) | payer MEDICAID, SELFPAY ==
--- OUTSIDE RECORDS SUMMARY | 2025-02-20 13:45 | XMS_ITS | Encounter Summary ---
Author Organization [employer] Address [address] [place] [address] [address] [place] [address] Care Team Providers Care Personnel Counselor Name Role Phone Juani Sosa Primary Care Provider [phone] Reason for Visit * Reason Comments OBAT TEL Encounter Details Date Type Department Care Team (Latest Contact Info) Description 02/20/2025 1:45 PM EST Telemedicine [facility] [address] [place] [address] Jacoby Donald MD [address] [place] [address] Uncomplicated opioid dependence (CMS/HCC) (HCC) (Primary Dx); S/P total knee arthroplasty, right Social History Tobacco Use Types Packs/Day Years [...] Progress Notes * Jacoby Donald MD - 02/20/2025 1:45 PM EST Subjective Patient ID: Gaby Arteaga is a 59 y.o. female. HPI Patient on current Suboxone dose of 24/6 mg. Increased visit interval to 3 week schedule starting 07/04. Induction date: 07/08/22. In program for 2 years 7 months. LFT's: 10/19/2024 Hep A status: pending (prev fully Iz'd) Hep B status: pending (prev fully Iz'd) Hep C status: pending HIV status: pending Covid Vaccine status: Psych provider: pending Therapist: Nilson MENDOZA reviewed by provider. Last PCP appt: 11/24/23 [facility] reviewed. Had right knee replacement by [facility] 2024. States the knee is still very painful. Has physical therapy that comes to her apartment. Prescribed oxycodone in the hospital and was given prescription. Continues to take Suboxone as prescribed. Still living in friend's apartment in [place]. States that later this month will learn whether shewibianca be able to move into her own apartment. Taking Suboxone as prescribed for opioid dependence with no adverse effects. Denies cravings, w/d symptoms or illicit substance use. Has Narcan availale. Declines speaking with family coach or clinician at this time. Former smoker. No EtOH. The following portions of the chart were [...] for this visit: Uncomplicated opioid dependence (CMS/HCC) ([facility]) Recovery support, harm reduction (including Narcan) and behavioral health attendance reviewed. Continue Suboxone 24/6 mg on 3 week schedule. Has Narcan. S/P total knee arthroplasty, right documented in this encounter Plan of Treatment Upcoming Encounters Date Type Department Care Team (Late st Contact Info) Description 03/13/2025 2:15 PM EST Telemedicine [facility] [address] [place] [phone] Nalini Blum RN 03/28/2025 2:00 PM EST Office Visit [facility] [address] [place] [phone] Juani Sosa ANP [address] [place] [phone] documented as of this encounter Visit Diagnoses Diagnosis Uncomplicated opioid dependence (CMS/HCC) (HCC)- Primary S/P total knee arthroplasty, right documented in this encounter Additional Health Concerns Assessment Noted Time PHQ-9 Depression Total Score: 15 025 1:15 PM EDT documented as of this encounter Care Teams Personnel Counselor Relationship Specialty Start Date End Date Juani Sosa ANP [address] [place] [address] PCP - General Family Medicine 02/11/22 Lilian Varghese [employer] 07/02/23 documented as of this encounter
--- NOTE | ~2025-02-23 | XR_ITS ---
EXAMINATION: XR KNEE 3 VIEWS RIGHT HISTORY: M25.569 - Pain in unspecified knee COMPARISON: Comparison is made with the prior examination dated 02/11/2023. FINDINGS: Standing AP views of both knees and additional lateral and sunrise patellar views of the right are submitted. The patient is status post total knee arthroplasty. The orthopedic elements are in anatomic alignment. There is no fracture or dislocation. There is moderate narrowing of the medial compartment of the left knee. There are postoperative changes in the soft tissues. XR/XR knee RT 3V IMPRESSION: Status post right total knee arthroplasty. Electronically signed by: Darío Galindo MD 02/23/2025 02:03 PM TAMI
--- OUTSIDE RECORDS SUMMARY | 2025-02-24 19:10 | XMS_ITS | Encounter Summary ---
Author Organization [employer] Address [address] [facility] 7t [place] [address] Care Team Providers Care Household Appliance Mechanic Name Role Phone Juani Sosa BLANKA Primary Care Provider [phone] Reason for Visit * Reason Comments Med Refill Encounter Details Date Type Department Care Team ([facility] Contact Info) Description 02/09/2025 Refill [facility] [address] [place], [place] [phone] [place] Denson MD [address] [place] [address] Right wrist pain Social History Tobacco Use Types Packs/Day [...] encounter Miscellaneous Notes * Telephone Encounter - Iqra Khan [place] - 02/20/2025 11:47 AM EST Chart Prep Labs: done Images: done Referrals: not applicable Vaccines due: Covid, Flu, PCV20, and RSV Screenings: not applicable Overdue care gaps: Not applicable documented in this encounter Plan of Treatment Upcoming Encounters Date Type Department Care Team (Late st Contact Info) Description 03/13/2025 2:15 PM EST Telemedicine [facility] [address] [place] [address] Nalini Blum, SIRISHA 03/28/2025 2:00 PM EST Office Visit [facility] [address] [place] [address] Juani Sosa, BLANKA [address] [place] [address] documented as of this encounter Visit Diagnoses Diagnosis Right wrist pain Pain in joint, forearm documented in this encounter Additional Health Concerns Assessment Noted Time PHQ-9 Depression Total Score: 15 025 1:15 PM EDT documented as of this encounter Care Teams Household Appliance Mechanic Relationship Specialty Start Date End Date Juani Sosa ANP [address] [place] [address] PCP - General Family Medicine 02/11/22 Lilian Varghese Drop Wire OperatorWindows Systems Engineer 07/02/23 documented as of this encounter
--- OUTSIDE RECORDS SUMMARY | 2025-02-24 19:10 | XMS_ITS | Encounter Summary ---
Author Organization [employer] Address [address] [facility] [address] 7t [place] [address] Care Team Providers Care Panelboard Tank Pumper Name Role Phone Juani Sosa Primary Care Provider [phone] Reason for Visit * Reason Comments Med Refill Encounter Details Date Type Department Care Team ([facility] Contact Info) Description 02/23/2025 Refill [facility] & PED[facility] [address] [place] [address] Juani Sosa ANP [address] [place] [address] Bilateral leg edema; Essential hypertension Social History Tobacco Use Types Packs/Day Years [...] Info) Description 03/13/2025 2:15 PM EST Telemedicine [facility] [address] [place] [address] Nalini Blum RN 03/28/2025 2:00 PM EST Office Visit [facility] [address] [place] [address] Juani Sosa ANP [address] [place] [address] documented as of this encounter Visit Diagnoses Diagnosis Bilateral leg edema Edema Essential hypertension Unspecified essential hypertension documented in this encounter Additional Health Concerns Assessment Noted Time PHQ-9 Depression Total Score: 15 025 1:15 PM EDT documented as of this encounter Care Teams Panelboard Tank Pumper Relationship Specialty Start Date End Date Juani Sosa ANP [address] [place] [address] PCP - General Family Medicine 02/11/22 Lilian Varghese Barrel Assembler HelperClassification And Treatment Director 07/02/23 documented as of this encounter
--- OUTSIDE RECORDS SUMMARY | 2025-02-24 19:10 | XMS_ITS | Encounter Summary ---
Author Organization [employer] Address [address] [facility] 7t [place] [address] Care Team Providers Care Ship Engineer Name Role Phone Juani Sosa Primary Care Provider [phone] Aldo Araiza RN Unavailable [phone] Claudine Arnold Unavailable Reason for Visit * Reason Comments Med Refill Encounter Details Date Type Department Care Team (Late st Contact Info) Description 10/17/2024 Refill [facility] [address] [place], [place] [phone] Juani Sosa ANP 230 [place] [address] Moderate persistent asthma without complication Social History [...] Upcoming Encounters Date Type Department Care Team ([facility] Contact Info) Description 03/13/2025 2:15 PM EST Telemedicine [facility] [address] [place] [address] Nalini Blum RN 03/28/2025 2:00 PM EST Office Visit [facility] [address] [place] [address] Juani Sosa ANP [address] [place] [address] documented as of this encounter Visit Diagnoses Diagnosis Moderate persistent asthma without complication documented in this encounter Additional Health Concerns Assessment Noted Time PHQ-9 Depression Total Score: 16 025 11:09 AM EST documented as of this encounter Care Teams Ship Engineer Relationship Specialty Start Date End Date Juani Sosa ANP [address] [place] [address] PCP - General Family Medicine 02/11/22 Aldo Araiza RN [address] [place] [address] Registered Nurse Family Medicine 10/20/24 02/03/25 Claudine Arnold 10/20/24 02/03/25 Lilian Varghese Admissions ClerkHeart Coordinator 07/02/23 documented as of this encounter
--- OUTSIDE RECORDS SUMMARY | 2025-02-24 19:10 | XMS_ITS | Encounter Summary ---
Author Organization [employer] Address [address] [facility] 7t [place] [address] Care Team Providers Care Therapist Physical Name Role Phone Juani Sosa Primary Care Provider [phone] Aldo Araiza RN Unavailable [phone] Claudine Arnold Unavailable Reason for Visit * Reason Onset Date Comments Med Refill 07/18/2024 Encounter Details Date Type Department Care Team (Late st Contact Info) Description 07/18/2024 Telephone [facility] [address] [place], [place] [phone] Juani Sosa ANP 230 [place], [place] [phone] Med Refill Social History Tobacco Use Types [...] AM EDT Medications requested were sent to [facility] on 05/02/24 90 day supply and Aspirin not prescribedby PCP. * Telephone Encounter - Sean Arnold - 07/18/2024 11:11 AM EDT TC from pt requesting medication refill. Medications needing refill: albuterol (ProAir HFA) 108 (90 Base) MCG/ACT inhaler Aspirin Low Dose 81 MG EC tablet hydroCHLOROthiazide (HYDRODiuril) 25 MG tablet omeprazole (PriLOSEC) [address] capsule To be sent to: [facility] - [place], [place] - [address] [place] [address] documented in this encounter Plan of Treatment Upcoming Encounters Date Type Department Care Team (Late st Contact Info) Description 03/13/2025 2:15 PM EST Telemedicine [address] [address] Nalini Blum RN 03/28/2025 2:00 PM EST Office Visit [address] [address] Juani Sosa ANP [address] [place] [address] documented as of this encounter Visit Diagnoses Not on filedocumented in this encounter Additional Health Concerns Assessment Noted Time PHQ-9 Depression Total Score: 16 025 11:09 AM EST documented as of this encounter Care Teams Therapist Physical Relationship Specialty Start Date End Date Juani Sosa ANP [address] [place] [address] PCP - General Family Medicine 02/11/22 Aldo Araiza, SIRISHA [address] [place] [address] Registered Nurse Family Medicine 10/20/24 02/03/25 Claudine Arnold 10/20/24 02/03/25 Lilian Varghese Aviation Survival TechnicianPathology Collector 07/02/23 documented as of this encounter
--- OUTSIDE RECORDS SUMMARY | 2025-02-24 19:10 | XMS_ITS | Clinical Summary ---
Author Organization [facility] Address [address] [facility] [address] [place] [address] Phone Care Team Providers Care Hat Forming Machine Feeder Name Role Phone Unknown, Unknown Primary Care [...] ACO C3 ACO C3 ACO Care Teams Hat Forming Machine Feeder Relationship Specialty Start Date End Date Unknown, Unknown, PCP - General 08/28/17 Additional Source Comments The information contained in this document represents components of the legal health record. It is not the complete legal health record.[facility]
--- OUTSIDE RECORDS SUMMARY | 2025-02-24 19:10 | XMS_ITS | Encounter Summary ---
Author Organization [employer] Address [address] [facility] [place] [address] 7t [place] [address] Care Team Providers Care Trash Collector Supervisor Name Role Phone Ian Juani MOSCOSO Primary Care Provider [phone] Aldo Araiza RN Unavailable [phone] Claudine Arnold Unavailable Reason for Visit * Reason Onset Date Comments Med Refill Appointment 09/10/2023 - [facility] Encounter Details Date Type Department Care Team (Late st Contact Info) Description 09/10/2023 Refill [facility] [address] [place] [address] Rafael Shahid FNP Social History Tobacco Use [...] prescriber. Abhi-schedule an apt for 10/06/23 as [id number] documented in this encounter Plan of Treatment Upcoming Encounters Date Type Department Care Team ([facility] st Contact Info) Description 03/13/2025 2:15 PM EST Telemedicine [facility] [address] [place] [address] Nalini Blum RN 03/28/2025 2:00 PM EST Office Visit [facility] [address] [place] [address] Juani Sosa ANP 230 [place] [address] documented as of this encounter Visit Diagnoses Not on filedocumented in this encounter Additional Health Concerns Assessment Noted Time PHQ-9 Depression Total Score: 10 024 10:06 AM EST documented as of this encounter Care Teams Trash Collector Supervisor Relationship Specialty Start Date End Date Juani Sosa ANP [address] [place] [address] PCP - General Family Medicine 02/11/22 Aldo Araiza RN [address] [place] [address] Registered Nurse Family Medicine 10/20/24 02/03/25 Claudine Arnold 10/20/24 02/03/25 Lilian Varghese Mixed Livestock Farm WorkerEstate Planning Paralegal 07/02/23 documented as of this encounter
--- OUTSIDE RECORDS SUMMARY | 2025-02-24 19:10 | XMS_ITS | Encounter Summary ---
Author Organization [employer] Address [address] [place] [address] 7t [place] [address] Care Team Providers Care Sports Equipment Supervisor Name Role Phone Juani Sosa Primary Care Provider [phone] Reason for Visit * Reason Onset Date Comments Medication Question 02/24/2025 Encounter Details Date Type Department Care Team ([facility] Contact Info) Description 02/24/2025 Telephone [facility] [address] [place], [place] [phone] Juani Sosa ANP 230 [place], [place] [phone] Medication Question Social History Tobacco Use Types Packs/Day Years [...] the past 12 months, has t he [employer], gas, oil or water [employer] threatened to shut off services in your [...] encounter Miscellaneous Notes * Telephone Encounter - Sayra Almeida RN - 02/24/2025 3:13 PM EST LYRIC WRITER checked. Pt received 7 day supply of oxycodone 10mg 02/08/25. To note, pt also receives suboxone . Last received 19 day supply 02/21/25. Pt had right total knee replacement 02/06/25. She is requesting PCP give refill of oxycodone as ortho will no longer Rx. * Telephone Encounter - Sayra Almeida RN - 02/24/2025 3:13 PM EST Tc from pt requesting Oxycodone as a new medication. Contact pt at [phone] * Telephone Encounter - Joya Ruth 02/24/2025 2:13 PM EST Tc from pt stating she had surgery on her knee on 02/06 and is requesting a script for Oxycodone assurgeon office advised contact pcp office for medication Contact pt at [phone] documented in this encounter Plan of Treatment Upcoming Encounters Date Type Department Care Team (Late st Contact Info) Description 03/13/2025 2:15 PM EST Telemedicine [facility] [address] [place] [address] Nalini Blum RN 03/28/2025 2:00 PM EST Office Visit [facility] [address] [place] [address] Juani Sosa ANP [address] [place] [address] documented as of this encounter Visit Diagnoses Not on filedocumented in this encounter Additional Health Concerns Assessment Noted Time PHQ-9 Depression Total Score: 15 025 1:15 PM EDT documented as of this encounter Care Teams Sports Equipment Supervisor Relationship Specialty Start Date End Date Juani Sosa ANP [address] [place] [address] PCP - General Family Medicine 02/11/22 Lilian Varghese Manager EngineProfessor Computer Science 07/02/23 documented as of this encounter
--- OUTSIDE RECORDS SUMMARY | 2025-02-24 19:10 | XMS_ITS | Encounter Summary ---
Author Organization [facility] Address [address] [facility] [address] [place] [address] Phone Care Team Providers Care Veterinary Surgery Technician Name Role Phone Unknown, Unknown Primary Care Provider Ramesh ramos Encounter Details Date Type Department Care Team (Latest Contact Info) Description 08/31/2017 Ancillary Orders [facility] [address] [place] [address] [place] [address] Sabina Barr MD [address] [place] [address] Other coma depth, unspecified coma timing Social [...] timing documented in this encounter Care Teams Veterinary Surgery Technician Relationship Specialty Start Date End Date Unknown, Unknown, MD PCP - General 08/28/17 documented as of this encounter Additional Source Comments The information contained in this document represents components of the legal health record. It is not the complete legal health record.[facility]
--- OUTSIDE RECORDS SUMMARY | 2025-02-24 19:10 | XMS_ITS | Encounter Summary ---
Author Organization [employer] Address [address] [facility] [address] 7t [place] [address] Care Team Providers Care Mirror Fabrication Supervisor Name Role Phone Juani Sosa Primary Care Provider [phone] Aldo Araiza RN Unavailable [phone] Claudine Arnold Unavailable Encounter Details Date Type Department Care Team (Late st Contact Info) Description 08/07/2023 Orders Only [facility] [address] [place] [address] Leeanne Mandel FNP Social History Tobacco Use [...] Info) Description 03/13/2025 2:15 PM EST Telemedicine [address] [address] Nalini Blum RN 03/28/2025 2:00 PM EST Office Visit [address] [address] Juani Sosa ANP [address] [place] [address] documented as of this encounter Visit Diagnoses Not on filedocumented in this encounter Additional Health Concerns Assessment Noted Time PHQ-9 Depression Total Score: 10 024 10:06 AM EST documented as of this encounter Care Teams Mirror Fabrication Supervisor Relationship Specialty Start Date End Date Juani Sosa ANP [address] [place] [address] PCP - General Family Medicine 02/11/22 Aldo Araiza, SIRISHA [address] [place] [address] Registered Nurse Family Medicine 10/20/24 02/03/25 Claudine Arnold 10/20/24 02/03/25 Lilian Varghese Assistant Chief Of PolicePatient Svcs Mgr 07/02/23 documented as of this encounter
--- OUTSIDE RECORDS SUMMARY | 2025-02-24 19:10 | XMS_ITS | Encounter Summary ---
Author Organization [employer] Address [address] [place] [address] 7t [place] [address] Care Team Providers Care Bottom Turning Lathe Tender Name Role Phone Juani Sosa Primary Care Provider [phone] Reason for Visit * Reason Onset Date Comments Medication Question 02/24/2025 Encounter Details Date Type Department Care Team ([facility] Contact Info) Description 02/24/2025 Telephone [facility] 230 [place], [place] [phone] Juani Sosa ANP 230 [place], [place] [phone] Medication Question Social History Tobacco Use Types [...] the past 12 months, has t he [employer], gas, oil or water company threatened to [...] Encounter - Sayra Almeida RN - 02/24/2025 3:16 PM EST See other encounter * Telephone Encounter - Shahid Meeks - 02/24/2025 3:05 PM EST Tc from pt requesting Oxycodone as a new medication. Contact pt at [phone] documented in this encounter Plan of Treatment Upcoming Encounters Date Type Department Care Team (Late st Contact Info) Description 03/13/2025 2:15 PM EST Telemedicine [facility] [address] [place] [address] Nalini Blum RN 03/28/2025 2:00 PM EST Office Visit [facility] [address] [place] [address] Juani Sosa ANP 230 [place] [address] documented as of this encounter Visit Diagnoses Not on filedocumented in this encounter Additional Health Concerns Assessment Noted Time PHQ-9 Depression Total Score: 15 025 1:15 PM EDT documented as of this encounter Care Teams Bottom Turning Lathe Tender Relationship Specialty Start Date End Date Juani Sosa ANP 230 [place] [address] PCP - General Family Medicine 02/11/22 Lilian Varghese Metal Cut Off Saw TenderCustomer Response Representative 07/02/23 documented as of this encounter
--- OUTSIDE RECORDS SUMMARY | 2025-02-24 19:10 | XMS_ITS | Encounter Summary ---
Author Organization [employer] Address [address] [facility] [address] 7t [place] [address] Care Team Providers Care Carbon Sequestration Plant Manager Name Role Phone Juani Sosa Primary Care Provider [phone] Aldo Araiza RN Unavailable [phone] Claudine Arnold Unavailable Reason for Visit * Reason Comments Med Change Request Encounter Details Date Type Department Care Team (Late st Contact Info) Description 08/05/2023 Refill [facility] [address] [place] [address] Leeanne Mandel FNP Moderate persistent asthma with [...] Info) Description 03/13/2025 2:15 PM EST Telemedicine [facility] [address] [place] [address] Nalini Blum RN 03/28/2025 2:00 PM EST Office Visit [facility] [address] [place] [address] Juani Sosa ANP [address] [place] [address] documented as of this encounter Visit Diagnoses Diagnosis Moderate persistent asthma with acute exacerbation documented in this encounter Additional Health Concerns Assessment Noted Time PHQ-9 Depression Total Score: 10 024 10:06 AM EST documented as of this encounter Care Teams Carbon Sequestration Plant Manager Relationship Specialty Start Date End Date Juani Sosa ANP [address] [place] [address] PCP - General Family Medicine 02/11/22 Aldo Araiza RN [address] [place] [address] Abhay ELEANOR [address] Registered Nurse Family Medicine 10/20/24 02/03/25 Claudine Arnold 10/20/24 02/03/25 Lilian Varghese Demonstrator KnittingKnife Setter Assembler 07/02/23 documented as of this encounter
--- OUTSIDE RECORDS SUMMARY | 2025-02-24 19:11 | XMS_ITS | Clinical Summary ---
Author Organization [employer] Address [address] [place] [address] Care Team Providers Care Manager Internship Name Role Phone Alona Crane Primary Care Provider [phone] Allergies Active Allergy Reactions Criticality Noted Date [...] allergic rhinitis due to other allergic trigger [place] 2 sprays into each nostril every day [...] Do not swallow. 30 each 11 Active cetirizine (ZyrTEC) 10 MG tabletIndications :Nasal [...] the tongue 3 times daily. 63 Film 02/22/20 11:32 AM EST 2024 Active hydroCHLOROthiazi de (HYDRODiuril) 25 MG tabletIndications :Bilateral leg edema,Essential hypertension TAKE 1 TABLET BY MOUTH EVERY DAY 90 tablet 025 Active hydroCHLOROthiazi de (HYDRODiuril) 25 MG tabletIndications :Bilateral leg edema,Essential hypertension Take 1 tablet (25 mg) by mouth Once per day. 90 tablet 025 2024 Discontinued amoxicillin (Amoxil) 500 MG capsuleIndication s:Acute non-recurrent frontal sinusitis Take 1 capsule (500 mg) by mouth every 8 (eight) hours for 7 days. 21 capsule 025 2024 Buprenorphine HCl-Naloxone HCl (Suboxone) 8-2 MG SL filmIndications:O pioid use disorder Place 1 Film under the tongue 3 times daily for 21 days. 63 Film 025 2024 Discontinued(R eorder (will not trigger notification to Pharmacy)) Active Problems Problem Noted Date Diagnosed Date S/P total knee arthroplasty, right 02/20/2025 Right wrist pain 07/16/2024 Assessment & Plan [...] think is appropriate to refer to an marketing project specialist she may require further testing. In the meantime I have recommended against the use of NSAIDS going forward and protect herself when outdoors. Since her symptoms are resolved no need for treatment at the moment. Pt has Zyrtec at home which she will continue to take. Abnormal nuclear stress test 08/05/2023 Acute bronchitis with chroni c obstructive pulmonary disease (COPD) (CMS/HCC) ([facility]) 08/05/2023 Dyspnea on exertion 08/05/2023 Gastroparesis 08/05/2023 [...] retiring, pt will be referred to new [facility] Psychiatric provider. Pt is aware that appts will be via televisit and that provider will not be an [facility] employee. She gives permission to share [...] major depre ssive disorder with psychotic features ([facility]) 07/18/2022 Tear of medial meniscus of knee 01/27/2020 01/30/2023 Anxiety 11/18/2017 Essential hypertension 09/03/2016 Moderate alcohol dependence ([facility]) 09/03/2016 Overview (01/11/2025): Stopped drinking 2022 or 2023 Uncomplicated opioid dependence ([facility]/HCC) 2016 Panic disorder 09/03/2016 Tobacco dependence in [...] and Suboxone. She will also F/U with [facility] clinician Nilson and the supports of the [facility] program. F/U with me in 2-3 weeks. She agrees with the plan. Opioid abuse 07/02/2022 05/17/2024 Encounters Date Type Department Care Team Description 02/24/2025 Telephone [facility] [address] [place] [phone] Alona Crane ANP Medication Question 02/24/[address] [phone] Alona Crane ANP Medication Question 02/23/2025 Refill [facility] [address] [place] [address] Alona Crane ANP Bilateral leg edema; Essential hypertension 02/20/2025 1:45 PM EST Telemedicine [facility] [address] [place] [phone] Jacoby Donald MD Uncomplicated opioid dependence (CMS/HCC) (HCC) (Primary Dx); S/P total knee arthroplasty, right 02/13/2025 Refill [facility] [address] [place] [phone] Nalini Blum RN Opioid use disorder 02/09/2025 Refill [facility] [address] [place] [phone] Maxwell Denson MD Right wrist pain 02/08/[address] [phone] Alona Crane ANP Durable Medical Equipment 02/08/2025 Orders Only GENERIC EXTERNAL DATA DEPARTMENT Provider, Generic External Data 02/07/2025 Orders Only GENERIC EXTERNAL DATA DEPARTMENT Provider, Generic External Data 02/06/2025 Orders Only GENERIC EXTERNAL DATA DEPARTMENT Provider, Generic External Data 02/03/2025 Patient Outreach [facility] [address] [place] [phone] Alona Crane ANP Care Management (C3CM- f/u call) 02/02/2025 Orders Only GENERIC EXTERNAL DATA DEPARTMENT Provider, Generic External Data 02/01/2025 Patient Outreach [facility] [address] [place] [phone] Alona Crane ANP Care Coordination (Appointment reminder) 01/30/2025 1:30 PM EST Telemedicine [address] [phone] Jacoyb Donald MD Uncomplicated opioid dependence (CMS/HCC) (HCC) (Primary Dx) 01/30/2025 Travel 01/23/2025 Patient Outreach [address] [address] Alona Crane ANP Care Management (C3CM- f/u call) 01/23/[address] [address] Nalini Blum RN Opioid use disorder 01/20/2025 9:40 AM EDT Office Visit [facility] [address] [place] [phone] Vijay Mojica MD Acute non-recurrent frontal sinusitis (Primary Dx) 01/20/2025 Travel 01/17/2025 Patient Outreach [address] [phone] Alona Crane ANP Care Coordination (Appointment reminder) 01/13/[address] [address] Alona Crane ANP March01/11/2025 2:30 PM EDT Office Visit [address] [address] Alona Crane ANP Preoperative clearance (Primary Dx); Essential hypertension; KENDRA (obstructive sleep apnea); Alcohol dependence in early full remission (CMS/HCC) (HCC); LBBB (left bundle branch block); Primary osteoarthritis of right knee; Dietary counseling; Exercise counseling; Cardiovascular event risk; Constipation by delayed colonic transit; Uses roller walker 01/11/2025 Travel 01/10/[address] [phone] Alona Crane ANP Medication Question 01/10/2025 Patient Outreach [address] [address] Alona Crane ANP Care Coordination (Appointment reminder) 01/09/2025 1:00 PM EDT Clinical Support [address] [address] Nalini Blum RN Uncomplicated opioid dependence (CMS/HCC) (HCC) (Primary Dx) 01/09/[address] [address] Alona Crane ANP chart prep 01/09/2025 Travel 01/06/2025 Patient Outreach [address] [address] Alona Crane ANP Care Management (C3CM- f/u call) 01/05/2025 Orders Only GENERIC EXTERNAL DATA DEPARTMENT Provider, Generic External Data 01/03/2025 Patient Outreach [address] [address] Alona Crane ANP 01/02/[address] [address] Nalini Blum RN Opioid use disorder 01/02/2025 Patient Outreach [address] [address] Alona Crane ANP Care Coordination (Appointment reminders) 12/31/2024 Orders Only GENERIC EXTERNAL DATA DEPARTMENT Provider, Generic External Data 12/30/2024 Orders Only [facility] External Provider, [facility] 12/28/2024 Patient Outreach [address] [address] Alona Crane ANP Care Coordination (SDOH f/u -appointment reminder) 12/27/2024 Patient Outreach [address] [phone] Alona Crane ANP Care Management (C3CM- f/u call) 12/19/2024 2:30 PM EDT Telemedicine [address] [address] Jacoby Donald MD Uncomplicated opioid dependence (CMS/HCC) (Primary Dx) 12/19/2024 Travel 12/14/[address] [address] Nalini Blum RN Opioid use disorder 12/13/2024 Patient Outreach [address] [address] Alona Crane ANP Care Coordination (SDOH f/u) 12/13/2024 Patient Outreach [facility] [address] [place] [phone] Alona Crane ANP Care Management (C3CM- f/u call) 12/05/2024 Patient Outreach [address] [address] Alona Crane ANP 12/01/2024 Patient Outreach [address] [address] Alona Crane ANP Care Management (C3CM- f/u call) 11/30/2024 4:00 PM EDT Office Visit [facility] [address] [place] [phone] Jacoby Donald MD Pharyngitis, unspecified etiology (Primary Dx); Moderate persistent asthma without complication; Diffuse abdominal pain; Viral URI; Acute bronchitis with chronic obstructive pulmonary disease (COPD) ([facility]) ([facility]) 11/30/2024 Travel 11/29/[address] [address] Alona Crane ANP Nurse Triage 11/28/2024 1:45 PM EDT Telemedicine [address] [address] Nalini Blum, RN Uncomplicated opioid dependence ([facility]) 11/28/2024 Travel 11/28/[address] [address] Nalini Blum, SIRISHA 11/28/2024 Patient Outreach [address] [address] Alona Crane ANP Care Coordination (SDOH) from Last 3 Months Immunizations Immunization Administration Dates Next Due Hep A / Hep B 06/04/2010,04/09/2010 Hep B, adult 01/09/2017 HepB-CpG 06/09/2023 Influenza injectable quadriv alent IIV4 with preservative 01/09/2017,01/24/2016 Influenza injectable quadrivalent preservative f ree 05/17/2019 Influenza, IIV3, injectable 01/01/2010, 6 Moderna Covid-19 Vaccine 12+ 07/24/2020 Pfizer Covid-19 Vaccine 12+ 11/01/2021, Pfizer Covid-19 Vaccine 12+ jessica-sucrose (Krish Chow ap) 11/01/2021 Pneumococcal Polysaccharide PPSV23 08/19/2014 Rabies, [...] Info) Description 03/13/2025 2:15 PM EST Telemedicine [facility] [address] [place] [phone] Nalini Blum RN 03/28/2025 2:00 PM EST Office Visit [facility] [address] [place] [phone] Alona Crane ANP [address] [place] [phone] Health Maintenance Due Date Last Done Comments CT Colonography 1965 Colonoscopy 1965 FIT 1965 Sigmoidoscopy 1965 Pap Smear 07/30/1987 Cervical Cancer Screening 1996 HPV/Cotest 1996 Pneumococcal Vaccine: 50+ Years (2 of 2 - PCV) 08/20/2015 08/19/2014 RSV Patients and Patients Aged 60 years or older (1 - Risk 50-74 years 1-dose series) 2016 Zoster Vaccines (2 of 2) 08/04/2023 06/09/2023 COVID-19 Vaccine ( - 2024- season) 2024 11/01/2021, 11/01/2021, 04/12/2021, Additional history exists Influenza Vaccine (#1) 2024 , 01/09/2017, 01/24/2016, Additional history exists Lipid Panel 04/03/2025 04/03/2020 Alcohol/Substance Use Screening 05/02/2025 05/02/2024 Depression Monitoring 05/05/2025 11/02/2024, 025 FOBT 05/27/2025 05/27/2024, 11/08/2019 Mammogram 06/17/2025 06/17/2024, 04/13/2018 SDOH Screening 11/02/2025 11/02/2024 Disability Screening 01/11/2026 01/11/2025 Diabetes: Hemoglobin A1C 02/02/2026 025, 07/21/2024, 07/04/2024, Additional history exists Tobacco Screening 02/20/2026 02/20/2025 Colorectal Cancer Screening 05/28/2027 FIT DNA/Cologuard 05/28/2027 [...] Procedure Name Priority Date/Time Associated Diagnosis Comments BASIC METABOLIC PANEL, FASTING Routine 02/08/2025 6:12 AM EST CBC WITH AUTO DIFFERENTIAL Routine 02/08/2025 5:27 AM EST BASIC METABOLIC PANEL, FASTING Routine 02/07/2025 5:14 AM EST CBC WITH AUTO DIFFERENTIAL Routine 02/07/2025 5:14 AM EST GROSS AND MICROSCOPIC LEVEL 4 Routine 02/06/2025 10:48 AM EST BASIC METABOLIC PANEL Routine 02/02/2025 9:14 AM EST HEMOGLOBIN A1C Routine 02/02/2025 9:14 AM EST CBC Routine 02/02/2025 9:14 AM EST PROTHROMBIN TIME-INR Routine 02/02/2025 9:14 AM EST Preoperative clearance TYPE AND SCREEN Routine 02/02/2025 9:03 AM EST POCT JENNY-14 URINE DRUG SCREEN Routine 01/09/2025 [...] 11/30/2024 4: 03 PM EDT Viral URI HEPATITIS C AB W/REFL TO HCV RNA, [...] Relevant to Health Maintenance Results * (ABNORMAL) Basic Metabolic Panel, Fasting (02/08/2025 6:12 AM EST) Only the most recent of2 resultswithin the time period is included. Sodium 140 135 - 145 mmol/L [facility] Potassium 3.6 3.3 - 5.1 mmol/L [facility] Chloride 105 96 - 108 mmol/L [facility] Carbon Dioxide 28 22 - 29 mmol/L [facility] Anion Gap 11(L) 12 - 20 [facility] Urea Nitrogen (BUN) 16 9 - 16 mg/dL [facility] Creatinine, Serum 0.61 0.5 - 1.4 mg/dL [facility] Creatinine Clr Calc Pharmacy 114.8 [facility] Comment:Provided height and weight: 157.48 cm,105.687 kg.eGFR (calculated from the MDRD study equation) and eCrCl(calculated from the Cockcroft-Gault equation) are based ondifferent parameters and may not yield comparable results.If eCrCl result is absurd, please check patient'sheight/weight. Estimated Glomerular Filt Rate >60 [facility] Comment:Chronic Kidney Disea se: Estimated GFR < 60 mL/min/1.09b0Mzopxb Kidney Disease: Estimated GFR < 15 mL/min/1.73m2 Glucose Fasting 100(H) 60 - 99 mg/dL [facility] Comment:A fasting glucose fr om 100-125 mg/dl is considered impaired(pre-diabetes). Calcium 8.3(L) 8.4 - 10.2 mg/dL [facility] 02/08/2025 6:12 AM EST 02/08/2025 6:12 AM EST us Generic External Data Provider LAB BLOOD ORDERAB LES Final Result [facility] [address] [place] [phone] * (ABNORMAL) CBC auto differential (02/08/2025 5:27 AM EST) Only the most recent of2 resultswithin the time period is included. White Blood Count 9.0 4.8 - 10.8 X10*3/uL [facility] Red Blood Count 3.36(L) 4.20 - 5.50 X10*6/uL [facility] Hemoglobin 9.4(L) 12.0 - 16.0 g/dl [facility] Hematocrit 29.7(L) 37.0 - 47.0 % [facility] Mean Corpuscular Volume 88.4 80.0 - 98.0 fL [facility] Mean Corpuscular Hemoglobin 28.0 27.0 - 33.0 pg [facility] Mean Corpuscular HGB Conc 31.6 31.0 - 35.0 g/dl [facility] Red Cell Distribution Width 13.3 11.0 - 16.0 % [facility] Platelet Count 263 160 - 400 X10*3/uL [facility] Mean Platelet Volume 9.1(L) 9.4 - 12.3 fL [facility] Neutrophils Percent Auto 58.3 45 - 73 % [facility] Imm Gran Pct Auto 0.3 0.0 - 0.4 % [facility] Lymphocytes Percent Auto 25.7 20 - 40 % [facility] Monocytes Percent Auto 12.3(H) 2 - 11 % [facility] Eosinophils Percent Auto 2.8 0 - 4 % [facility] Basophils Percent Auto 0.6 0 - 2 % [facility] NRBC Pct Auto 0.0 0.0 - 0.2 /100WBC [facility] Neutrophils Absolute Auto 5.2 2.0 - 8.3 x10*3/uL [facility] Imm Gran Abs Auto 0.03 0.00 - 0.03 X10*3/uL [facility] Lymphocytes Absolute Auto 2.3 1.2 - 4.9 X10*3/uL [facility] Monocytes Absolute Auto 1.1 0.1 - 1.2 X10*3/uL [facility] Eosinophils Absolute Auto 0.3 0.0 - 0.4 X10*3/uL [facility] Basophils Absolute Auto 0.1 0.0 - 0.2 X10*3/uL [facility] NRBC Abs Auto 0.000 0.0 - 0.012 X10*3/uL [facility] 02/08/2025 5:27 AM EST 02/08/2025 6:12 AM EST us Generic External Data Provider LAB BLOOD ORDERAB LES Final Result [facility] [address] [place] [phone] * Gross and Microscopic Level 4 (02/06/2025 10:48 AM EST) 02/06/2025 10:4 8 AM EST 02/06/2025 1:26 PM EST [facility] - 02/08/2025 3:41 PM EST ----- ------- Name: Gaby Arteaga Age/Sex: 59/F : 1965 Unit#: [id number] Attend Dr: Tim Mcdermott MD Re02/06/25 Status: [facility] Location: [facility] Disch: ----- ------- SPEC : [id number] RECD: 02/06/25 STATUS: CRISTIAN REECE NUM: [id number] KEYUR: 02/06/[address] [facility] [address]: Tim Mcdermott MD ENTERED: 02/06/250 SP TYPE: Surgical OTHR DR: ALONA CRANE NP ORDERED: Gross Micro L4, Decal Diagnosis Bone, right knee (arthroplasty): -Bone and cartilage with degenerative changes consistent with osteoarthritis. -Synovial hyperplasia. Clinical History OA right knee Microscopic Description Microscopic sections reviewed. Material Received Bone right knee Gross Description Received in formalin labeled bone right knee are portions of cortical and cancellous bone, including the tibial plate and femoral condyles, forming in aggregate measuring 11.5 x 7.5 x 2.2 cm. The cartilaginous surfaces are pink white and smooth with areas of erosion and eburnation occupying approximately 40% of the cartilaginous surface. The marrow surface is yellow red in color and firm. Also received is a portion of fibrofatty tissue measuring 3.5 x 2.5 x 1 cm and a crescent shaped portion of yellow castillo cartilage measuring 4.2 x 1.5 x 1.2 cm. Administrative Project Coordinator sections are submitted for microscopic examination, following decalcification, 4 pieces in cassette A1. ([facility]) IHC S/NG Disclaimer NOTE: Unless otherwise stated, all tissue is formalin-fixed and paraffin-embedded. Some or all of the immunohistochemical tests reported herein may have been developed and their performance characteristics determined by [facility]. They have not been cleared or approved by the U.S. Food and Drug Administration (FDA). However, the FDA has determined that such clearance or approval is not necessary. This laboratory is certified under the Clinical Laboratory Improvement Amendments of 1988 (CLIA) as qualified to perform high complexity clinical laboratory testing. CONTINUED ON NEXT PAGE ----- ------- Name: Gaby Arteaga Age/Sex: 59/F : 1965 Unit#: [id number] Attend Dr: Tim Mcdermott MD Re02/06/25 Status: [facility] Location: [facility] Disch: ----- ------- SPEC : [id number] RECD: 02/06/25 STATUS: CRISTIAN REECE NUM: [id number] KEYUR: 02/06/[address]: Tim Mcdermott MD ENTERED: 02/06/25 SP TYPE: Surgical OTHR DR: ALONA CRANE NP ORDERED: Gross Micro L4, Decal Copies To: Tim Mcdermott MD [facility] [address] [place] [address] [address] [place], [place] [phone] [email or web address] ALONA CRANE NP [facility] [address] [place] [address] ----- ------- Signed (signature on file) Blanca Beck MD 02/08/25 1541 ----- ------- END OF REPORT us Generic External Data Provider LAB CYTOLOGY ALEE HILLMAN Final Result [facility] [address] [place], [place] [phone] * Prothrombin Time-INR (02/02/2025 9:14 AM EST) Prothrombin Time 12.0 11.2 - 13.5 SEC [facility] INTERNATIONAL NORM RATIO 1.0 0.9 - 1.1 [facility] Comment:INTERNATIONAL NORMAL IZED RATIO (INR) REFERENCE RANGES Reference RangeFor patients not on anticoagulant therapy: 0.9 - 1.1INR ranges for oral anticoagulanttherapy:For prevention and treatment of venous thrombosis and pulmonary embolism: 2.0 - 3.0For acute myocardial infarction with aspirin therapy: 2.0 - 3.0For acute myocardial infarction without aspirin therapy: 3.0 - 4.0For patients with mechanical prosthetic heart valves: 2.5 - 3.5 Blood Venous blood specimen / Unknown 02/02/2025 9:14 AM EST 02/02/2025 9:14 AM EST Alona MOSCOSO LAB BLOOD ORDERABLES Final Resul t [facility] [address] [place] [phone] * (ABNORMAL) CBC (02/02/2025 9:14 AM EST) White Blood Count 8.8 4.8 - 10.8 X10*3/uL [facility] Red Blood Count 4.21 4.20 - 5.50 X10*6/uL [facility] Hemoglobin 11.9(L) 12.0 - 16.0 g/dl [facility] Hematocrit 37.4 37.0 - 47.0 % [facility] Mean Corpuscular Volume 88.8 80.0 - 98.0 fL [facility] Mean Corpuscular Hemoglobin 28.3 27.0 - 33.0 pg [facility] Mean Corpuscular HGB Conc 31.8 31.0 - 35.0 g/dl [facility] Red Cell Distribution Width 12.8 11.0 - 16.0 % [facility] Platelet Count 322 160 - 400 X10*3/uL [facility] Mean Platelet Volume 8.9(L) 9.4 - 12.3 fL [facility] NRBC Pct Auto 0.0 0.0 - 0.2 /100WBC [facility] NRBC Abs Auto 0.000 0.0 - 0.012 X10*3/uL [facility] 02/02/2025 9:14 AM EST 02/02/2025 9:14 AM EST us Generic External Data Provider LAB BLOOD ORDERAB LES Final Result Performing Organization Address [facility] Co de Phone Number [facility] [address] [place] [phone] * (ABNORMAL) Hemoglobin A1c (02/02/2025 9:14 AM EST) Hemoglobin A1c 6.3(H) <6.0 % [facility] Comment:Hemoglobin A1C Refer ence Range Adults: 4.8 - 6.0 % Non diabetic: < 6.0 % Goal: < 7.0 %Additional Action Suggested: > 8.0 %Note: Hemoglobin A1c results are invalid for patients with abnormal amounts of HbF. Blood transfusions may impact the HbA1c concentration in the patient sample. Estimated Average Glucose 134 mg/dL [facility] Comment:eAG = Estimated ave rage glucose which is %A1C expressed asaverage glucose, using the formula of the C1H-KuthomkAdkujsb Glucose study (ADAG), Diabetes Care, Vol.31,#8,Oct. 2007 02/02/2025 9:14 AM EST 02/02/2025 9:14 AM EST us Generic External Data Provider LAB BLOOD ORDERAB LES Final Result Performing Organization Address [facility] Co de Phone Number [facility] [address] [place] [phone] * (ABNORMAL) Basic Metabolic Panel (02/02/2025 9:14 AM EST) Sodium 141 135 - 145 mmol/L [facility] Potassium 3.6 3.3 - 5.1 mmol/L [facility] Chloride 102 96 - 108 mmol/L [facility] Carbon Dioxide 32(H) 22 - 29 mmol/L [facility] Anion Gap 11(L) 12 - 20 [facility] Urea Nitrogen (BUN) 19(H) 9 - 16 mg/dL [facility] Creatinine, Serum 0.63 0.5 - 1.4 mg/dL [facility] Creatinine Clr Calc Pharmacy 111.1 [facility] Comment:Provided height and weight: 157.48 cm,105.687 kg.eGFR (calculated from the MDRD study equation) and eCrCl(calculated from the Cockcroft-Gault equation) are based ondifferent parameters and may not yield comparable results.If eCrCl result is absurd, please check patient'sheight/weight. Estimated Glomerular Filt Rate >60 [facility] Comment:Chronic Kidney Disea se: Estimated GFR < 60 mL/min/1.49y1Iwnfwx Kidney Disease: Estimated GFR < 15 mL/min/1.73m2 Glucose 112 60 - 115 mg/dL [facility] Calcium 8.9 8.4 - 10.2 mg/dL [facility] 02/02/2025 9:14 AM EST 02/02/2025 9:14 AM EST us Generic External Data Provider LAB BLOOD ORDERAB LES Final Result Performing Organization Address City/State/[facility] Co de Phone Number [facility] [address] [place] [phone] * Type and screen (02/02/2025 9:03 AM EST) Blood Type OP [facility] Antibody Screen NEGATIVE [facility] 02/02/2025 9:03 AM EST 02/02/2025 9:26 AM EST Narrative [facility] - 02/02/2025 10:24 AM EST Spec expiration changed by CELINA on 02/02/25Reason: PATWITNESSED BY ACEVEDMNURSING:Call Blood Bank (ext. [phone]) to band patient on admission.Type and Screen in effect until 2300 on 02/06/2025 us Generic External Data Provider LAB BLOOD BANK TE ST ORDERABLES Final Result [facility] [address] [place] [phone] * (ABNORMAL) POCT JENNY-14 Urine Drug Screen (01/09/2025 1:13 PM EDT) THC Negative Negative Cocaine Screen, Urine Negative [...] MRSA Nasal Screen (01/05/2025 12:00 PM EDT) Pathologist [facility] MRSA Nasal PCR NEGATIVE Negative [facility] SA Nasal PCR POSITIVE(A) Negative [facility] MRSA Interpretation SEE NOTE [facility] Comment:MRSA target DNA not detected; SA target DNA detected.A MRSA NEGATIVE, SA POSITIVE test result does not precludeMRSA nasal colonization. 01/05/2025 12:0 0 PM EDT 01/05/2025 12:45 PM EDT Generic External Data Provider LAB MICROBIOLOGY - GENERAL ORDERABLES Final Result [facility] [address] [place] [phone] * Culture, Urine, Routine (12/31/2024 12:00 AM EDT) Urine Urine specimen obtained by clean catch procedure / Unknown 12/31/2024 12/31/2024 Comment:UACC Narrative [facility] - 01/01/2025 10:03 AM EDT Urine Culture Report Result Urine Culture < 10,000 cfu/ml Specimen Source: Urine clean catch us Generic External Data Provider LAB MICROBIOLOGY - GENERAL ORDERABLES Final Result Performing Organization Address City/[facility]/ZIP Co de Phone Number [facility] [address] [place] [address] [phone] * (ABNORMAL) Urinalysis, Complete, with Reflex to Culture (12/30/2024 11:51 PM EDT) Color Urine Yellow [facility] Appearance Urine Cloudy [facility] PH >=9.0 5.0 - 9.0 [facility] Glucose Urine UA Negative Negative mg/dL [facility] Urine Blood Negative Negative [facility] Specific [place] - Urine 1.020 1.005 - 1.025 [facility] Urine Protein 30 (1+)(A) Neg-Trace mg/dL [facility] Urine Ketones Negative Negative mg/dL [facility] Nitrite Urine Negative Negative [facility] Leukocyte Esterase Urine Small (1+)(A) Negative [facility] RBC Urine 0-2 0 - 2 /HPF [facility] Urine WBC 6-10(A) 0 - 5 /HPF [facility] Urine Squamous Epithelial Cell 3-5 0 - 2 /HPF [facility] Urine Bacteria None Seen None Seen [facility] Hyaline Casts, Urine 0-2 0 - 2 /LPF [facility] 12/30/2024 11:5 1 PM EDT 12/30/2024 11:54 PM EDT [facility] - 12/31/2024 12:04 AM EDT [id number], Clean Catch us Generic External Data Provider LAB URINE ORDERAB LES Final Result Performing Organization Address [facility]/ZIP Co de Phone Number [facility] [address] [place] [address] [phone] * High Sensitivity Troponin I (12/30/2024 11:09 PM EDT) TROPONIN I HIGH SENSITIVITY <2.7 <3.5 - 17.0 ng/L [facility] Comment:The Reynoso high sens itivity Troponin-I results should beused in conjunction with other diagnostic information suchas ECG, clinical observations and information, and patientsymptoms to aid in the diagnosis of NV. 12/30/2024 11:0 9 PM EDT 12/30/2024 11:15 PM EDT us Generic External Data Provider LAB BLOOD ORDERAB LES Final Result Performing Organization Address City/State/[facility] Co de Phone Number [facility] [address] [place] [address] [phone] * CT Abdomen Pelvis w/o Contrast (12/30/2024 10:35 PM EDT) Anatomical Region Laterality Modality Body, Pelvis, Abdomen Computed T omography 12/30/2024 10:3 5 PM EDT Narrative 12/30/2024 10:36 PM EDT [place] [address] CT Scan Report Signed Patient: Gaby Arteaga MR#: [id number] 46 : 1965 Acct:[id number] Age/Sex: 59 / F ADM Date: 12/30/24 Loc: .ED Attending Dr: Ordering Physician: Paul Bolden MD Date of Service: 12/30/24 Procedure(s): CT abdomen pelvis wo IV con Accession Number(s): [id number] cc: Paul Bolden MD; ALONA CRANE NP Report Number: [id number]: Total DLP = 849.00 mGy-cm Reason for [...] in OV> 12/30/242235 DD/ 34 TD/TT: 12/30/242234 Elevator Tender: Procedure Note Donotuseinterpreter, Image - 12/30/[address] [place] [address] [address] Scan Report Signed Patient: Wyatt rAteaga#: [id number] 46 : 1965Acct:[id number] Age/Sex: 59 / FADM Date: 12/30/24 Loc: HO.ED Attending Dr: Ordering Physician: Paul Bolden MD Date of Service: 12/30/24 Procedure(s): CT abdomen pelvis wo IV con Accession Number(s): [id number] cc: Pual Bolden MD; ALONA CRANE NP Report Number: [id number]: Total DLP = 849.00 mGy-cm Reason for [...] in OV> 12/30/242235 DD/ 34 TD/TT: 12/30/242234 Elevator Tender: [facility] External Provider IMG CT PROCEDURES Edited Result - Final * POCT Rapid Influenza B OSOM (11/30/2024 4:16 PM EDT) Rapid Influenza B Ag Negative Negative, Indeterminate QC Media Lot # [id number] Lot# Expiration Date Swab 11/30/2024 4:16 PM EDT Jacoby Donald MD POINT OF CARE TEST ENTER/EDIT OR DERABLES Final Result * POCT Rapid Influenza A OSOM (11/30/2024 4:14 PM EDT) Rapid Influenza A Ag Negative Negative, Indeterminate QC Media Lot # [id number] Lot# Expiration Date Swab Nasopharyngeal structure / Unknown 11/30/2024 4:14 PM EDT Jacoby Donald MD POINT OF CARE TEST ENTER/EDIT OR DERABLES Final Result * POCT Rapid Covid-19 REYNOSO ID NOW (11/30/2024 4:05 PM EDT) [facility] Coronavirus Antigen PCR Negative Negative, Indeterminate, None Detected, Invalid, Specimen unsatisfactory for evaluation, Weakly Positive, 2+ QC Media Lot # [id number] Lot# Expiration Date Swab 11/30/2024 4:05 PM EDT us Jacoby Donald MD POINT OF CARE TEST ENTER/EDIT OR DERABLES Final Result * POCT Rapid Strep A OSOM (11/30/2024 4:03 PM EDT) [facility] Rapid Strep A Screen Negative Negative, None Detected QC Media Lot # [id number] Lot# Expiration Date Swab 11/30/2024 4:03 PM EDT us Jacoby Donald MD POINT OF CARE TEST ENTER/EDIT OR DERABLES Final Result * Hepatitis C Antibody with Reflex to HCV, RNA, Quantitative, Real-Time PCR (07/04/2024 2:31 PM EDT) [facility] Hepatitis C Antibody Nonreactive Nonreactive [facility] Comment:Antibodies to HCV no t detected; does not exclude early acuteHCV infection. 07/04/2024 2:31 PM EDT 07/04/2024 4:02 PM EDT us Jacoby Donald MD LAB BLOOD ORDERABLES Final Resul t [facility] [address] [place] [phone] * HIV-1/2 Antigen and Antibodies, Fourth Generation, with Reflexes (07/04/2024 2:31 PM EDT) [facility] HIV AB/AG Nonreactive Nonreactive [facility] Comment:HIV-1 p24 Ag and/or HIV-1/HIV-2 Ab not detected.A test result that is nonreactive does not exclude thepossibility of exposure to or infection with HIV-1 and/orHIV-2. Nonreactive results in this assay for individualswith prior exposure to HIV-1 and/or HIV-2 may be due toantigen and antibody levels that are below the limit ofdetection of this assay.The [employer] Through [employer] HIV Ag/Ab Combo assay result andsupplemental assay results should be interpreted inconjunction with the patient's clinical presentation,history and other laboratory results. If the results areinconsistent with clinical evidence, additional testing issuggested to confirm the result. 07/04/2024 2:31 PM EDT 07/04/2024 4:02 PM EDT us Jacoby Donald MD LAB BLOOD ORDERABLES Final Resul t [facility] [address] [place] [phone] * BI Mammogram Screening Tomosynthesis Bilateral (06/17/2024 2:15 PM EDT) Anatomical Region Laterality Modality Breast Bilateral Mammography 06/17/2024 2:15 PM EDT Narrative 06/25/2024 3:10 PM EDT [address] [place] [address] Mammography Report Signed Patient: Gaby Arteaga MR#: [id number] 46 : 1965 Acct:[id number] Age/Sex: 58 / F ADM Date: 06/17/24 Loc: HO.MAMMO Attending Dr: Alona Crane NP Ordering Physician: ALONA CRANE NP Results: 1Negative Date of Service: 06/17/24 Follow Up: 1 Year From Orig inal Mammogram Procedure(s): MM tomosynthesis screening BI Accession Number(s): [id number] cc: ALONA CRANE NP EXAMINATION: MM SCREENING [...] 06/25/24 1506 DD/ 1415 TD/TT: 06/17/24 1440 Elevator Tender: Procedure Note Donotuseinterpreter, Image - 06/25/2024 [facility] [address] [place] [address] Mammography Report Signed Patient: Wyatt Arteaga#: [id number] 46 : 1965Acct:[id number] Age/Sex: 58 / FADM Date: 06/17/24 Loc: HOWadeMAMMO Attending Dr: Alona Crane NP Ordering Physician: ALONA CRANE NPResults: 1Negative Date of Service: 06/17/24Follow Up: 1 Year From Orig inal Mammogram Procedure(s): MM tomosynthesis screening BI Accession Number(s): [id number] cc: ALONA CRANE NP EXAMINATION: MM SCREENING [...] 06/25/24 1506 DD/ 1415 TD/TT: 06/17/24 1440 Elevator Tender: Alona KAY BI PROCEDURES Edited Result - Final * (ABNORMAL) Cologuard?? colon cancer screening (05/27/2024 2:49 PM EST) Cologuard Result Positive( A) Negative 06/04/2024 5:36 PM EDT [facility] (CLIA #:[id number]) Comment: POSITIVE TEST RESULT. A positive Cologuard [...] (Roverto Camargo al, N Engl J Med 2014;370(14):3022-7997.) Cologuard may produce a false negative or false positive result (no colorectal cancer or precancerous polyp present at colonoscopy follow up). A negative Cologuard test result does not guarantee the absence of CRC or advanced adenoma (pre-cancer). The current Cologuard screening interval is every 3 years. ([place] [employer] Society and U.S. Multi-Society Task Force). Cologuard performance data in a 10,000 patient pivotal study using colonoscopy as the reference method can be accessed at the following location: www.[employer]Axela/results. Additional description of the Cologuard test process, warnings and precautions can be found at www.[employer]. Stool specimen (specimen) 05/27/2024 2:49 PM EST 05/29/2024 11:29 PM EDT [facility] MOLECULAR DIAGNOSTICS ORDERA BLES Final Result [facility] (CLIA #:[id number]) Atul Smalls . [place] [id number], * (ABNORMAL) LIPID PANEL, STANDARD (04/03/2020 2:27 [...] LDL-C. Faustino SS et al. NICHOLAS. 2013;310(19): 6395-4521 (http://education.[employer]ela/faq/KSA095) Non-HDL Cholesterol 157(H) <130 mg/dL (calc) [facility] Comment: For patients with diabetes plus 1 major ASCVD risk factor, treating to a non-HDL-C goal of <100 mg/dL (LDL-C of <70 mg/dL) is considered a therapeutic option. Triglycerides 165(H) <150 mg/dL [facility] 04/03/2020 2:27 PM EST us Syed Hardy MD LAB BLOOD ORDERABLES Final Resul t [facility] [address] from Last 3 Months or Most Recently Relevant to Health Maintenance [facility] Care Teams Manager Internship Relationship Specialty Start Date End Date Alona Crane ANP [address] [place] [address] PCP - General Family Medicine 02/11/22 Lilian Varghese Press Brake OperatorBookbinder Apprentice 07/02/23
--- OUTSIDE RECORDS SUMMARY | 2025-02-24 19:11 | XMS_ITS | Encounter Summary ---
Author Organization [employer] Address [address] [facility] 7t [place] [address] Care Team Providers Care Screen Printing Machine Loader Unloader Name Role Phone Juani Sosa Primary Care Provider [phone] Aldo Araiza RN Unavailable [phone] Claudine Arnold Unavailable Reason for Visit * Reason Onset Date Comments ER Follow-up 11/10/2023 Encounter Details Date Type Department Care Team ([facility] st Contact Info) Description 11/10/2023 Telephone [facility] [address] [place], [place] [phone] Juani Sosa ANP [address] [place], [place] [phone] ER Follow-up Social History Tobacco Use Types [...] ED visit on : Date: 11/09/23 Hospital: [facility] Seen for: Chest Pain, breathing trouble, and Leg swelling. Patient advised will forward to team nurse for follow up documented in this encounter Plan of Treatment Upcoming Encounters Date Type Department Care Team (Late st Contact Info) Description 03/13/2025 2:15 PM EST Telemedicine [facility] [address] [place] [phone] Nalini Blum RN 03/28/2025 2:00 PM EST Office Visit [facility] [address] [place] [phone] Juani Sosa ANP [address] [place] [phone] documented as of this encounter Visit Diagnoses Not on filedocumented in this encounter Additional Health Concerns Assessment Noted Time PHQ-9 Depression Total Score: 9 10/06/19 24 11:29 AM EDT documented as of this encounter Care Teams Screen Printing Machine Loader Unloader Relationship Specialty Start Date End Date Juani Sosa ANP [address] [place] [address] PCP - General Family Medicine 02/11/22 Aldo Araiza, SIRISHA [address] [place] [address] Registered Nurse Family Medicine 10/20/24 02/03/25 Claudine Arnold 10/20/24 02/03/25 Lilian Varghese Internal Medicine NurseSmokehouse Operator 07/02/23 documented as of this encounter
--- OUTSIDE RECORDS SUMMARY | 2025-02-24 19:11 | XMS_ITS | Encounter Summary ---
Author Organization [employer] Address [address] [facility] 7t [place] [address] Care Team Providers Care Basin Finish Operator Tig Welder Name Role Phone Juani Sosa Primary Care Provider [phone] Aldo Araiza RN Unavailable [phone] Claudine Arnold Unavailable Reason for Visit * Reason Onset Date Comments Pre op 04/13/2023 Encounter Details Date Type Department Care Team ([facility] st Contact Info) Description 04/13/2023 Telephone [facility] [address] [place], [place] [phone] Juani Sosa ANP [address] [place], [place] [phone] Pre op Social History Tobacco Use Types [...] [facility]'s office number: [phone] Surgeon's office fax number: [phone] Contact name (person you spoke with): Ngoc from [facility] Last office note from surgeon requested: no documented in this encounter Plan of Treatment Upcoming Encounters Date Type Department Care Team (Late st Contact Info) Description 03/13/2025 2:15 PM EST Telemedicine [facility] [address] [place] [address] [phone] Nalini Blum RN 03/28/2025 2:00 PM EST Office Visit [facility] [address] [place] [phone] Juani Sosa ANP [address] [place] [address] documented as of this encounter Visit Diagnoses Not on filedocumented in this encounter Additional Health Concerns Assessment Noted Time PHQ-9 Depression Total Score: 14 024 10:44 AM EST documented as of this encounter Care Teams Basin Finish Operator Tig Welder Relationship Specialty Start Date End Date Juani Sosa ANP [address] [place] [address] PCP - General Family Medicine 02/11/22 Aldo Araiza, SIRISHA [address] [place] [address] Registered Nurse Family Medicine 10/20/24 02/03/25 Claudine Arnold 10/20/24 02/03/25 Lilian Varghese Weight Loss Sales ConsultantWiener Packer 07/02/23 documented as of this encounter
--- OUTSIDE RECORDS SUMMARY | 2025-02-24 19:11 | XMS_ITS | Encounter Summary ---
Author Organization [employer] Address [address] 7[address] [place] [address] Care Team Providers Care Oil Plant Operator Name Role Phone Juani Sosa Primary Care Provider [phone] Aldo Araiza RN Unavailable Claudine Arnold Unavailable Reason for Visit * Reason Onset Date Comments Durable Medical Equipment 02/17/2023 Ed[place] Encounter Details Date Type Department Care Team ([facility] st Contact Info) Description 02/17/[address] [facility] [address] [place], [place] [phone] Juani Sosa ANP [address] [place] [address] Durable Medical Equipment (Walker) Social History Tobacco [...] Walker states requested back in November however service writer advisor does not see it on patients chart. documented in this encounter Plan of Treatment Upcoming Encounters Date Type Department Care Team (Late st Contact Info) Description 03/13/2025 2:[address] [facility] [address] [place] [phone] Nalini Blum RN 03/28/2025 2:00 PM EST Office Visit [facility] [address] [place] [phone] Juani Sosa ANP [address] [place] [address] documented as of this encounter Visit Diagnoses Not on filedocumented in this encounter Additional Health Concerns Assessment Noted Time PHQ-9 Depression Total Score: 16 023 9:58 AM EDT documented as of this encounter Care Teams Oil Plant Operator Relationship Specialty Start Date End Date Juani Sosa ANP [address] [place] [address] PCP - General Family Medicine 02/11/22 Aldo Araiza RN [address] [place] [address] Registered Nurse Family Medicine 10/20/24 02/03/25 Claudine Arnold 10/20/24 02/03/25 Lilian Varghese Point Of Care SpecialistPolitical Worker 07/02/23 documented as of this encounter
--- OUTSIDE RECORDS SUMMARY | 2025-02-24 19:11 | XMS_ITS | Encounter Summary ---
Author Organization [email or web address] Address [address] [facility] [facility] [address] 7[address] [place] [address] Care Team Providers Care Aerospace Control And Warning Systems Name Role Phone Sosa Juani MOSCOSO Primary Care Provider [phone] Aldo Araiza RN Unavailable [phone] Claudine Arnold Unavailable Encounter Details Date Type Department Care Team (Late st Contact Info) Description 04/09/2023 Orders Only [facility] [address] [place], [place] [phone] Nalini Blum, SIRISHA Uncomplicated opioid dependence (CMS/HCC) [...] or overeating Several days 04/09/2023 10:44 AM eKyona Vasquez [place] Feeling bad about yourself - [...] Info) Description 03/13/2025 2:15 PM EST Telemedicine [facility] [address] [place] [phone] Nalini Blum RN 03/28/2025 2:00 PM EST Office Visit [facility] [address] [place] [phone] Juani Sosa ANP [address] [place] [address] Scheduled Orders Name Type Priority Associated Diagnoses [...] documented as of this encounter Care Teams Aerospace Control And Warning Systems Relationship Specialty Start Date End Date Juani Sosa ANP [address] [place] [address] PCP - General Family Medicine 02/11/22 Aldo Araiza, RN [address] [place] [address] Registered Nurse Family Medicine 10/20/24 02/03/25 Claudine Arnold 10/20/24 02/03/25 Lilian Varghese Medical DirCoordinate Measuring Equipment Operator 07/02/23 documented as of this encounter
--- OUTSIDE RECORDS SUMMARY | 2025-02-24 19:11 | XMS_ITS | Encounter Summary ---
Author Organization [employer] Address [address] [facility] [facility] [address] 7[address] [place] [address] Care Team Providers Care Naphthalene Still Operator Name Role Phone Juani Sosa Primary Care Provider [phone] Aldo Araiza RN Unavailable [phone] Claudine Arnold Unavailable Reason for Visit * Reason Comments Med Change Request Encounter Details Date Type Department Care Team ([facility] Contact Info) Description 01/13/2023 Refill [facility] [address] [place], [place] [phone] Jacoby Donald MD [address] [place], [place] [phone] Social History Tobacco Use Types Packs/Day Years [...] Info) Description 03/13/2025 2:15 PM EST Telemedicine [address] [address] Nalini Blum RN 03/28/2025 2:00 PM EST Office Visit [address] [address] Juani Sosa ANP [address] [place] [address] documented as of this encounter Visit Diagnoses Not on filedocumented in this encounter Additional Health Concerns Assessment Noted Time PHQ-9 Depression Total Score: 16 023 9:58 AM EDT documented as of this encounter Care Teams Naphthalene Still Operator Relationship Specialty Start Date End Date Juani Sosa ANP [address] [place] [phone] PCP - General Family Medicine 02/11/22 Aldo Araiza, SIRISHA [address] [place] [phone] Registered Nurse Family Medicine 10/20/24 02/03/25 Claudine Arnold 10/20/24 02/03/25 Lilian Varghese Spares SchedulerMachine Specialist 07/02/23 documented as of this encounter
== END 2025-02-23 15:11 | disposition home or self-care (01) ==
LOC: HO.HOSX 15:10
PROVIDERS: Visit Provider Physician Assistant
DX: M25.561 Pain in right knee (principal); Z96.651 Presence of right artificial knee joint
CPT/HCPCS: 73562; 99212

== ENCOUNTER 2025-03-08 11:08 | Outpatient (REF) | payer MEDICAID, SELFPAY ==
--- NOTE | ~2025-03-08 | XR_ITS ---
EXAMINATION: XR RIBS 3 VIEWS MINIMUM WITH CHEST RIGHT HISTORY: pain COMPARISON: Comparison is made with the prior examination of the chest dated 05/11/2024. FINDINGS: A single PA view of the chest and 6 views of the bilateral ribs are submitted. The lungs are expanded and clear. There is no pleural effusion, pneumothorax, or pulmonary vascular congestion. The heart is normal in size. There is degenerative disc disease of the spine. The ribs are intact. No fracture is seen. XR/XR ribs RT min 3V w CXR1V IMPRESSION: No acute cardiopulmonary abnormality. No evidence of fracture of the bilateral ribs. Electronically signed by: Darío Galindo MD 03/08/2025 02:30 PM EST
--- OUTSIDE RECORDS SUMMARY | 2025-03-08 10:15 | XMS_ITS | Encounter Summary ---
Author Organization [employer] Address [address] [facility] 7t [place] [address] Care Team Providers Care Drafting Teacher Name Role Phone Alona Crane Primary Care Provider [phone] Encounter Details Date Type Department Care Team ([facility] st Contact Info) Description 03/08/2025 10:15 AM EST Office Visit [facility] MEDICINE [address] [place], [place] [phone] Tamia Luna MD [address] [place] [address] Influenza (Primary Dx); Urinary tract infection symptoms; Rib pain; Bronchitis; Acute pain of right knee Social History Tobacco Use Types Packs/Day Years [...] Sign Reading Time Taken Comments Blood Pressure 136/80 03/08/2025 10:29 AM EST Pulse 106 03/08/2025 10:29 AM EST Temperature 36.1 C (96.9 F) 03/08/2025 10:29 AM EST Respiratory Rate 20 03/08/2025 10:29 AM EST Oxygen Saturation 90% 03/08/2025 10:29 AM EST Inhaled Oxygen Concentration - - Weight 105 kg (230 lb 6.4 oz) 03/08/2025 10:29 A M EST Height 154.9 cm (5' 1 ) 03/08/2025 10:29 AM EST Body Mass Index 43.53 03/08/2025 10:29 AM EST documented in this encounter Progress Notes * Tamia Beckham MD - 03/08/2025 10:15 AM EST SUBJECTIVE: Gaby Arteaga is a 59 y.o. year old female who presents for acute visit . Gaby Arteaga, 59 years Rib Pain - Persistent rib pain for approximately 2 months prior to visit - Pain described as big and ongoing, not relieved by previous interventions - No history of trauma or heavy lifting associated with onset - Pain not related to leg surgery - Previous emergency room visit for pain approximately 2 months ago - Previous daycare visit last week, received an injection but pain persisted - No sweating reported Cough and Respiratory Symptoms - Cough present for about 2 weeks, worsens at night - Cough productive of brown sputum - Mild shortness of breath, described as tight - Nasal congestion and mucus reported - Denies fever - Cough started after onset of rib pain Knee Pain Post-Surgery - History of knee surgery, unspecified date - Ongoing leg pain attributed to surgery - Advised to follow up with surgeon and physical therapy - Scheduled two-week follow-up appointment with surgeon Antibiotic Use - Currently finishing prescribed antibiotics from previous daycare visit - Last day of current antibiotic course today - Previous antibiotic regimen involved increasing daily doses as described by patient Misc - Former smoker, quit 8 years ago Social History Social History Narrative Not on file Problem List[1] Family History[2] Review of Systems OBJECTIVE: Vitals: 03/08/25 1029 BP: 136/80 BP Location: Left arm Patient Position: Sitting BP Cuff Size: Adult Pulse: 106 Resp: 20 Temp: 96.9 ??F (36.1 ??C) TempSrc: Temporal SpO2: 90% Weight: 230 lb 6.4 oz (105 kg) Height: 5' 1 (1.549 m) Physical Exam Follow Up: No follow-ups on file. Medications Ordered Prior to Encounter[3] Problem List Items Addressed This Visit Rib pain Relevant Medications predniSONE (Deltasone) 20 MG tablet Other Relevant Orders XR Ribs 2 Views Right XR Ribs 2 Views Left POCT Rapid Influenza A REYNOSO ID NOW (Completed) POCT Rapid Influenza B REYNOSO ID NOW (Completed) POCT Rapid Covid-19 BinaxNOW (Completed) Bronchitis Relevant Medications azithromycin (Zithromax) 250 MG tablet predniSONE (Deltasone) 20 MG tablet Other Relevant Orders XR Chest 2 Views Influenza - Primary Today positive for influenza A and B Counseling to rest and drink plenty of fluids Relevant Medications azithromycin (Zithromax) 250 MG tablet Acute pain of right knee Relevant Medications predniSONE (Deltasone) 20 MG tablet Other Visit Diagnoses Urinary tract infection symptoms Relevant Orders POCT Urinalysis (Completed) Rib pain: - Rib pain may be related to inflammation or possible infection; differential includes pneumonia due to proximity of lungs and diaphragm. - Ordered X-ray of ribs to evaluate etiology. Prescribed prednisone for anti- inflammatory effect and pain management. Bronchitis: - Bronchitis suspected due to cough and abnormal lung sounds; pneumonia to be ruled out. - Ordered chest X-ray to rule out pneumonia. Prescribed CPAP (antibiotic) for 5 days. Prescribed prednisone for inflammation. Postoperative knee pain: - Postoperative knee pain following recent surgery. - Recommended follow-up with surgeon and physical therapy as directed by surgical team. Prescribed prednisone for pain and inflammation. This note was drafted using Ambient (AI) technology. 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 pylori) infection Obesity Tear of medial meniscus of knee Asthma PTSD (post-traumatic stress disorder) Bipolar disorder ([facility]) Abnormal nuclear stress test Acute bronchitis with chronic obstructive pulmonary disease (COPD) (CMS/HCC) (CMS/HCC) ([facility]) Dyspnea on exertion Gastroparesis History of heroin use LBBB (left bundle branch block) KENDRA (obstructive sleep apnea) Allergic reaction Constipation by delayed colonic transit Primary osteoarthritis of right knee Sinusitis Chronic pain of both knees Right wrist pain S/P total knee arthroplasty, right Rib pain Bronchitis Influenza Acute pain of right knee [2] Family History Problem Relation Name Age of Onset Cancer Mother 55 breast [3] Current Outpatient Medications on File Prior to Visit Medication Sig Dispense Refill albuterol (ProAir HFA) 108 (90 Base) MCG/ACT inhaler Inhale 2 puffs every 4 (four) hours if needed for shortness of breath or wheezing. 18 g 3 Aspirin Low Dose 81 MG EC tablet Take 1 tablet (81 mg) by mouth Once per day. 90 tablet 3 baclofen (Lioresal) 10 MG tablet Take 1 tablet (10 mg) by mouth if needed in the morning, at noon, and at bedtime for muscle spasms. 60 tablet 1 Blood Pressure Monitoring (Omron 3 Series BP Monitor) device USE TO CHECK BLOOD PRESSURE TWICE DAILY Buprenorphine HCl-Naloxone HCl (Suboxone) 8-[address] 1 Film under the tongue 3 times daily. 63 Film 0 cetirizine (ZyrTEC) 10 MG tablet TAKE 1 TABLET BY MOUTH EVERY DAY 90 tablet 1 Diclofenac Sodium 1 % gel Apply 2 g topically if needed in the morning, at noon, in the evening, and at bedtime (pain). 150 g 3 fluticasone (Flonase) 50 MCG/ACT nasal spray Rulo 2 sprays into each nostril every day as needed 48 mL 0 fluticasone furoate (Arnuity Ellipta) 200 MCG/ACT inhaler Inhale 1 puff Once per day. Rinse mouth with water after use to reduce aftertaste and incidence of candidiasis. Do not swallow. 30 each 11 gabapentin (Neurontin) 100 MG capsule Take 1 capsule (100 mg) by mouth 3 times daily. 90 capsule 1 hydroCHLOROthiazide (HYDRODiuril) 25 MG tablet TAKE 1 TABLET BY MOUTH EVERY DAY 90 tablet 0 lidocaine (Lidoderm) 5 % patch Apply 1-2 patches topically if needed each day for mild pain. Remove& discard patch within 12 hours or as directed by MD. 60 patch 1 methylPREDNISolone (Medrol Dospak) 4 MG tablets Follow schedule on package instructions 21 tablet 0 metoprolol succinate XL (Toprol-XL) 25 MG 24 hr tablet Take 25 mg by mouth in the morning. naproxen (Naprosyn) 500 MG tablet Take 1 tablet (500 mg) by mouth if needed in the morning and at bedtime for mild pain. 30 tablet 1 omeprazole (PriLOSEC) [address] capsule TAKE 1 CAPSULE BY MOUTH DAILY BEFORE BREAKFAST. DO NOT BREAK, CRUSH, DISSOLVE OR CHEW 90 capsule 1 ondansetron ODT (Zofran-ODT) 4 MG disintegrating tablet TAKE 1 TABLET ORALLY EVERY 8 HOURS NEEDED FOR NAUSEA AND VOMITING [] oxyCODONE (Roxicodone) 10 MG immediate release tablet Take 1 tablet (10 mg) by mouth every 6 (six) hours if needed for severe pain or moderate pain for up to 7 days. 28 tablet 0 senna-docusate sodium (Senokot-S) 8.6-50 MG tablet Take 1-2 tabs once daily as needed for constipation 90 tablet 3 Spacer/Aero-Holding Chambers device Use with albuterol 1 each 0 [] traMADol (Ultram) 50 MG tablet Take 1 tablet (50 mg) by mouth if needed in the morning, at noon, and at bedtime for severe pain for up to 3 days. 9 tablet 0 triamcinolone (Kenalog) 0.1 % cream Apply topically 2 times daily. Call clinic if no improvement in2 weeks 45 g 0 No current facility-administered medications on file prior to visit. documented in this encounter Miscellaneous Notes * Assessment & Plan Note - Tamia Beckham MD - 03/08/2025 12:21 PM EST Associated Problem(s): Influenza Today positive for influenza A and B Counseling to rest and drink plenty of fluids documented in this encounter Plan of Treatment Upcoming Encounters Date Type Department Care Team (Late st Contact Info) Description 03/13/2025 2:15 PM EST Telemedicine [address] [address] Nalini Blum RN 03/28/2025 2:00 PM EST Office Visit [facility] MEDICINE [address] [place] [address] Alona Crane ANP [address] [place] [phone] 04/03/2025 1:15 PM EST Office Visit [address] [address] Jacoby Donald MD [address] [place] [phone] Scheduled Orders Name Type Priority Associated Diagnoses Orde r Schedule XR Ribs 2 Views Right Imaging Routine Rib pain Expected: 03/08/2025, Expires: 03/08/2026 XR Chest 2 Views Imaging Routine Bronchitis Expected: 03/08/2025, Expires: 03/08/2026 documented as of this encounter Procedures Procedure Name Priority Date/Time Associated Diagnosis Comments XR RIBS 3 VIEWS RIGHT W CHEST 1 VIEW Routine 03/08/2025 11:45 AM EST POCT INFLUENZA B (ID NOW RAPID MOLECULAR) Routine 03/08/2025 11:13 AM EST Rib pain POCT INFLUENZA A (ID NOW RAPID MOLECULAR) Routine 03/08/2025 11:13 AM EST Rib pain POCT RAPID COVID ANTIGEN Routine 03/08/2025 11:12 AM EST Rib pain POCT URINALYSIS DIPSTICK Routine 03/08/2025 10:43 AM EST Urinary tract infection symptoms documented in this encounter Results * XR Ribs 3 Views Right with Chest 1 View (03/08/2025 11:45 AM EST) Anatomical Region Laterality Modality Radiographic Tricia ging 03/08/2025 11:4 5 AM EST Narrative 03/08/2025 2:33 [place] [address] XRay Report Signed Patient: Gaby Arteaga MR#: [id number] 45 : 1965 Acct:[id number] Age/Sex: 59 / F ADM Date: 03/08/25 Loc: .HHCX Attending Dr: Tamia Beckham MD Ordering Physician: Tamia Luna MD Date of Service: 03/08/25 Procedure(s): XR ribs RT min 3V w CXR1V Accession Number(s): [id number] cc: Tamia Luna MD; ALONA CRANE NP Reason for Exam: pain EXAMINATION: XR RIBS 3 VIEWS MINIMUM WITH CHEST RIGHT HISTORY: pain COMPARISON: Comparison is made with the prior examination of the chest dated 05/11/2024. FINDINGS: A single PA view of the chest and 6 views of the bilateral ribs are submitted. The lungs are expanded and clear. There is no pleural effusion, pneumothorax, or pulmonary vascular congestion. The heart is normal in size. There is degenerative disc disease of the spine. The ribs are intact. No fracture is seen. XR/XR ribs RT min 3V w CXR1V IMPRESSION: No acute cardiopulmonary abnormality. No evidence of fracture of the bilateral ribs. Electronically signed by: Darío Galindo MD 03/08/2025 02:30 PM EST RP Dictated By: Darío Galindo MD Signed By: <Electronically signed by Darío Galindo MD in OV> 03/08/25 1430 DD/ 1145 TD/TT: 03/08/25 1150 Beam House Inspector: Procedure Note Donotuseinterpreter, Image - 03/08/2025 [place] [address] XRay Report Signed Patient: Wyatt Arteaga#: [id number] 46 : 1965Acct:[id number] Age/Sex: 59 / FADM Date: 03/08/25 Loc: HO.HHCX Attending Dr: Tamia Beckham MD Ordering Physician: Tamia Luna MD Date of Service: 03/08/25 Procedure(s): XR ribs RT min 3V w CXR1V Accession Number(s): [id number] cc: Tamia Luna MD; ALONA CRANE NP Reason for Exam: pain EXAMINATION: XR RIBS 3 VIEWS MINIMUM WITH CHEST RIGHT HISTORY: pain COMPARISON: Comparison is made with the prior examination of the chest dated 05/11/2024. FINDINGS: A single PA view of the chest and 6 views of the bilateral ribs are submitted. The lungs are expanded and clear. There is no pleural effusion, pneumothorax, or pulmonary vascular congestion. The heart is normal in size. There is degenerative disc disease of the spine. The ribs are intact. No fracture is seen. XR/XR ribs RT min 3V w CXR1V IMPRESSION: No acute cardiopulmonary abnormality. No evidence of fracture of the bilateral ribs. Electronically signed by: Darío Galindo MD 03/08/2025 02:30 PM EST RP Dictated By: Darío Galindo MD Signed By: <Electronically signed by Darío Galindo MD in OV> 03/08/25 1430 DD/ 1145 TD/TT: 03/08/25 1150 Beam House Inspector: us Tamia Beckham MD IMG XR PROCEDURES Fin al Result * (ABNORMAL) POCT Rapid Influenza B REYNOSO ID NOW (03/08/2025 11:13 AM EST) Influenza B Positive( A) Negative, Indeterminate [facility] QC Media Lot # [id number] [facility] Lot# Expiration Date [facility] Swab 03/08/2025 11:1 3 AM EST Tamia Beckham MD POINT OF CARE TEST ENTER/EDIT ORDERABLES Edited Result - Final Performing Organization Address [facility] Co de Phone Number [facility] [address] [place] [phone] * (ABNORMAL) POCT Rapid Influenza A REYNOSO ID NOW (03/08/2025 11:13 AM EST) Pathologist [facility] Influenza A Positive( A) Negative, Indeterminate [facility] QC Media Lot # [id number] [facility] Lot# Expiration Date [facility] Swab 03/08/2025 11:1 3 AM EST Tamia Beckham MD POINT OF CARE TEST EN TER/EDIT ORDERABLES Final Result Performing Organization Address [facility] Co de Phone Number [facility] [address] [place] [phone] * POCT Rapid Covid-19 BinaxNOW (03/08/2025 11:12 AM EST) Pathologist [facility] Rapid COVID Ag Negative QC Media Lot # [id number] Lot# Expiration Date [id number] Swab 03/08/2025 11:1 2 AM EST Result [facility] Tamia Beckham MD POINT OF CARE TEST EN TER/EDIT ORDERABLES Final Result * (ABNORMAL) POCT Urinalysis (03/08/2025 10:43 AM EST) Color, UA Yellow Clarity, UA Clear Glucose, UA Negative Bilirubin, UA Negative Ketones, UA Negative Spec Grav, UA 1.015 Blood, UA Negative Negative, None Detected pH, UA 7.5 Protein, UA Trace Comment:100mg Urobilinogen, UA 1.0 Leukocytes, UA Trace Negative, Rare, Trace, 1+ (17), 2+ (35), 3+ (70), Trace (15) Comment:small Nitrite, UA Negative Negative, None Detected Appearance, UA clear QC Media Lot # [id number] Lot# Expiration Date 63,026 Urine (Urine, Random) 03/08/2025 10:43 AM EST Tamia Beckham MD POINT OF CARE TEST EN TER/EDIT ORDERABLES Final Result documented in this encounter Visit Diagnoses Diagnosis Influenza- Primary Influenza with other respiratory manifestations Urinary tract infection symptoms Rib pain Unspecified chest pain Bronchitis Bronchitis, not specified as acute or chronic Acute pain of right knee documented in this encounter Additional Health Concerns Assessment Noted Time PHQ-9 Depression Total Score: 15 025 1:15 PM EDT documented as of this encounter Care Teams Drafting Teacher Relationship Specialty Start Date End Date Aloan Crane ANP [address] [place] [address] PCP - General Family Medicine 02/11/22 Lilian Varghese Thread InspectorHvac Project Engineer 07/02/23 documented as of this encounter
--- OUTSIDE RECORDS SUMMARY | 2025-03-08 14:48 | XMS_ITS | Encounter Summary ---
Author Organization [employer] Address [address] [place] [address] 7t [place] [address] Care Team Providers Care Line Maintenance Supervisor Name Role Phone Juani Sosa Primary Care Provider [phone] Reason for Visit * Reason Onset Date Comments Medication Question 02/24/2025 Encounter Details Date Type Department Care Team ([facility] Contact Info) Description 02/24/2025 Telephone [facility] MEDICINE [address] [place], [place] [phone] Juani Sosa ANP [address] [place], [place] [phone] Medication Question Social History Tobacco Use Types [...] with others, in a hotel, in a long term, living outside on the street, on a [...] the past 12 months, has t he [employer], gas, oil or water [employer] threatened to shut off services in your [...] Almeida RN - 02/24/2025 3:13 PM EST LUMBER STICKER checked. Pt received 7 day supply of [...] as a new medication. Contact pt at [phone] * Telephone Encounter - Joya Ruth 02/24/2025 2:13 PM EST Tc from pt stating she had surgery on her knee on 02/06 and is requesting a script for Oxycodone assurgeon office advised contact pcp office for medication Contact pt at [phone] documented in this encounter Plan of Treatment Upcoming Encounters Date Type Department Care Team (Late st Contact Info) Description 03/13/2025 2:15 PM EST Telemedicine [address] [address] Nalini Blum RN 03/28/2025 2:00 PM EST Office Visit [address] [address] Juani Sosa ANP [address] [place] [address] 04/03/2025 1:15 PM EST Office Visit [address] [address] Jacoby Donald MD [address] [place] [address] documented as of this encounter Visit Diagnoses Not on filedocumented in this encounter Additional Health Concerns Assessment Noted Time PHQ-9 Depression Total Score: 15 025 1:15 PM EDT documented as of this encounter Care Teams Line Maintenance Supervisor Relationship Specialty Start Date End Date Juani Sosa ANP [address] [place] [phone] PCP - General Family Medicine 02/11/22 Lilian Varghese Production LaborerSenior Quality Assurance Engineer 07/02/23 documented as of this encounter
--- OUTSIDE RECORDS SUMMARY | 2025-03-08 14:48 | XMS_ITS | Encounter Summary ---
Author Organization [facility] Address [address] [facility] [address] [place] [phone] Phone Care Team Providers Care Content Publisher Name Role Phone Unknown, Unknown Primary Care Provider Ramesh ramos Encounter Details Date Type Department Care Team (Latest Contact Info) Description 08/31/2017 Ancillary Orders [facility] [address] [place] [address] [place] [address] Sabina Barr MD [address] [place] [phone] Other coma depth, unspecified coma timing Social [...] timing documented in this encounter Care Teams Content Publisher Relationship Specialty Start Date End Date Unknown, Unknown, MD PCP - General 08/28/17 documented as of this encounter Additional Source Comments The information contained in this document represents components of the legal health record. It is not the complete legal health record.[facility]
--- OUTSIDE RECORDS SUMMARY | 2025-03-08 14:48 | XMS_ITS | Encounter Summary ---
Author Organization [employer] Address [address] [facility] 7t [place] [address] Care Team Providers Care Staff Air Defense Officer Name Role Phone Juani Sosa Primary Care Provider [phone] Aldo Araiza RN Unavailable [phone] Claudine Arnold Unavailable Reason for Visit * Reason Comments Med Refill Encounter Details Date Type Department Care Team (Late st Contact Info) Description 10/17/[address] [facility] MEDICINE [address] [place], [place] [phone] Juani Sosa ANP [address] [place] [address] Moderate persistent asthma without complication Social History [...] Info) Description 03/13/2025 2:15 PM EST Telemedicine [facility] MEDICINE [address] [place] [address] Nalini Blum RN 03/28/2025 2:00 PM EST Office Visit [facility] MEDICINE [address] [place] [address] Juani Sosa ANP [address] [place], [place] [phone] 04/03/2025 1:15 PM EST Office Visit [facility] MEDICINE [address] [place] [address] Jacoby Donald MD [address] [place] [phone] documented as of this encounter Visit Diagnoses Diagnosis Moderate persistent asthma without complication documented in this encounter Additional Health Concerns Assessment Noted Time PHQ-9 Depression Total Score: 16 05/17/ 025 11:09 AM EST documented as of this encounter Care Teams Staff Air Defense Officer Relationship Specialty Start Date End Date Juani Sosa ANP [address] [place] [address] PCP - General Family Medicine 02/11/22 Aldo Araiza, SIRISHA [address] [place] [phone] Registered Nurse Family Medicine 10/20/24 02/03/25 Claudine Arnold 10/20/24 02/03/25 Lilian Varghese Casket UpholstererSoda Column Operator 07/02/23 documented as of this encounter
--- OUTSIDE RECORDS SUMMARY | 2025-03-08 14:48 | XMS_ITS | Clinical Summary ---
Author Organization [facility] Address [address] [facility] [address] [place] [phone] Phone Care Team Providers Care Workcell Operator Name Role Phone Unknown, Unknown Primary Care [...] ACO C3 ACO C3 ACO Care Teams Workcell Operator Relationship Specialty Start Date End Date Unknown, Unknown, PCP - General 08/28/17 Additional Source Comments The information contained in this document represents components of the legal health record. It is not the complete legal health record.[facility]
--- OUTSIDE RECORDS SUMMARY | 2025-03-08 14:48 | XMS_ITS | Encounter Summary ---
Author Organization [employer] Address [address] [facility] 7t [place] [address] Care Team Providers Care Boiling Tub Operator Name Role Phone Juani Sosa Primary Care Provider [phone] Aldo Araiza RN Unavailable [phone] Claudine Arnold Unavailable Reason for Visit * Reason Onset Date Comments Med Refill 07/18/2024 Encounter Details Date Type Department Care Team (Late st Contact Info) Description 07/18/2024 Telephone [facility] MEDICINE [address] [place], [place] [phone] Juani Sosa ANP [address] [place], [place] [phone] Med Refill Social History Tobacco Use Types [...] AM EDT Medications requested were sent to [facility] Pharm[facility] on 05/02/24 90 day supply and Aspirin not prescribedby PCP. * Telephone Encounter - Sean Arnold - 07/18/2024 11:11 AM EDT TC from pt requesting medication refill. Medications needing refill: albuterol (ProAir HFA) 108 (90 Base) MCG/ACT inhaler Aspirin Low Dose 81 MG EC tablet hydroCHLOROthiazide (HYDRODiuril) 25 MG tablet omeprazole (PriLOSEC) [address] capsule To be sent to: [facility] - [place], [place] - [address] [place] [address] documented in this encounter Plan of Treatment Upcoming Encounters Date Type Department Care Team (Late st Contact Info) Description 03/13/2025 2:15 PM EST Telemedicine [address] [address] Nalini Blum RN 03/28/2025 2:00 PM EST Office Visit [address] [address] Juani Sosa ANP [address] [place] [address] 04/03/2025 1:15 PM EST Office Visit [address] [address] Jacoby Donald MD [address] [place] [phone] documented as of this encounter Visit Diagnoses Not on filedocumented in this encounter Additional Health Concerns Assessment Noted Time PHQ-9 Depression Total Score: 16 025 11:09 AM EST documented as of this encounter Care Teams Boiling Tub Operator Relationship Specialty Start Date End Date Juani Sosa ANP [address] [place] [address] PCP - General Family Medicine 02/11/22 Aldo Araiza, SIRISHA [address] [place] [address] Registered Nurse Family Medicine 10/20/24 02/03/25 Claudine Arnold 10/20/24 02/03/25 Lilian Varghese Boiling Tub OperatorCircuit Walker 07/02/23 documented as of this encounter
--- OUTSIDE RECORDS SUMMARY | 2025-03-08 14:49 | XMS_ITS | Encounter Summary ---
Author Organization [employer] Address [address] [place] [address] 7t [place] [address] Care Team Providers Care Tent Finisher Name Role Phone Juani Sosa Primary Care Provider [phone] Reason for Visit * Reason Onset Date Comments Chart Prep 03/07/2025 Encounter Details Date Type Department Care Team ([facility] Contact Info) Description 03/07/2025 Telephone [facility] [address] [place], [place] [phone] Juani Sosa ANP [address] [place], [place] [phone] Chart Prep Social History Tobacco Use Types Packs/Day Years [...] with others, in a hotel, in a residential, living outside on the street, on a [...] the past 12 months, has t he [employer], gas, oil or water company threatened to [...] encounter Miscellaneous Notes * Telephone Encounter - Alena Fields MA - 03/07/2025 12:29 PM EST Chart Prep Labs: done Images: not applicable Referrals: not applicable Vaccines due: Covid, Flu, PCV20, RSV, and Zoster Screenings: pap smear Overdue care gaps: PHQ-9 and JESUS-7 documented in this encounter Plan of Treatment Upcoming Encounters Date Type Department Care Team (Late st Contact Info) Description 03/13/2025 2:15 PM EST Telemedicine [facility] [address] [place] [address] Nalini Blum, SIRISHA 03/28/2025 2:00 PM EST Office Visit [facility] [address] [place] [address] Juani Sosa ANP [address] [place] [address] 04/03/2025 1:15 PM EST Office Visit [facility] [address] [place], [place] [phone] Jacoby Donald MD [address] [place], [place] [phone] documented as of this encounter Visit Diagnoses Not on filedocumented in this encounter Additional Health Concerns Assessment Noted Time PHQ-9 Depression Total Score: 15 025 1:15 PM EDT documented as of this encounter Care Teams Tent Finisher Relationship Specialty Start Date End Date Juani Sosa ANP [address] [place] [address] [phone] PCP - General Family Medicine 02/11/22 Lilian Varghese Tool DesignerStrap Sewer 07/02/23 documented as of this encounter
--- OUTSIDE RECORDS SUMMARY | 2025-03-08 14:49 | XMS_ITS | Encounter Summary ---
Author Organization [employer] Address [address] [place] [address] 7t [place] [address] Care Team Providers Care Transfer Car Operator Name Role Phone Juani Sosa Primary Care Provider [phone] Reason for Visit * Reason Onset Date Comments Appointment Request 03/06/2025 Encounter Details Date Type Department Care Team ([facility] Contact Info) Description 03/06/2025 Telephone [facility] [address] [place], [place] [phone] Juani Sosa ANP 230 [place] [address] Appointment Request Social History Tobacco Use Types Packs/Day Years [...] Telephone Encounter - Macey Rondon RN - 03/07/2025 12:17 PM EST Return call placed to the pt regarding appointment request after having a surgical procedure on 02/06/2025. Pt confirms that she had a right knee replacement on 02/06/2025 at [facility]. The pt has already followed up with this office for a post operative check up but was calling in to report some new onset respiratory symptoms. The pt endorsed chest congestion, cough, SOB and nausea. Pt denied any CP, known fever or malaise. The pt was advised that these symptoms may or may not be relatedto the pt surgical procedure but further evaluation in office is necessary to rule out a URI. Pt agreeable to scheduling with Dr. Reese on 03/08/2025 for a sick onsite appointment. * Telephone Encounter - Rehana Carty - 03/06/2025 10:33 AM EST TC from patient requesting a follow-up appointment after surgery performed on 02/06. Patient already completed a postoperative follow-up with the surgeon. Contact pt at [phone] documented in this encounter Plan of Treatment Upcoming Encounters Date Type Department Care Team (Late st Contact Info) Description 03/13/2025 2:15 PM EST Telemedicine [address] [address] Nalini Blum RN 03/28/2025 2:00 PM EST Office Visit [address] [address] Juani Sosa ANP [address] [place] [address] 04/03/2025 1:15 PM EST Office Visit [address] [address] Jacoby Donald MD [address] [place] [address] documented as of this encounter Visit Diagnoses Not on filedocumented in this encounter Additional Health Concerns Assessment Noted Time PHQ-9 Depression Total Score: 15 025 1:15 PM EDT documented as of this encounter Care Teams Transfer Car Operator Relationship Specialty Start Date End Date Juani Sosa ANP [address] [place] [address] PCP - General Family Medicine 02/11/22 Lilian Varghese Leveler HelperDust Mop Maker 07/02/23 documented as of this encounter
--- OUTSIDE RECORDS SUMMARY | 2025-03-08 14:49 | XMS_ITS | Encounter Summary ---
Author Organization [employer] Address [address] [facility] [address] 7t [place] [address] Care Team Providers Care Oven Dumper Name Role Phone Sosa Juani MOSCOSO Primary Care Provider [phone] Aldo Araiza RN Unavailable [phone] Claudine Arnold Unavailable Encounter Details Date Type Department Care Team (Late st Contact Info) Description 04/09/2023 Orders Only [facility] 230 [place], [place] [phone] Nalini Blum, SIRISHA Uncomplicated opioid dependence (CMS/HCC) [...] Info) Description 03/13/2025 2:15 PM EST Telemedicine [facility] [address] [place] [address] Nalini Blum RN 03/28/2025 2:00 PM EST Office Visit [facility] [address] [place] [address] [phone] Juani Sosa ANP [address] [place], [place] [phone] 04/03/2025 1:15 PM EST Office Visit [facility] [address] [place], [place] [phone] Jacoby Donald MD 230 [place], [place] [phone] Scheduled Orders Name Type Priority Associated Diagnoses [...] documented as of this encounter Care Teams Oven Dumper Relationship Specialty Start Date End Date Juani Sosa ANP [address] [place] [address] PCP - General Family Medicine 02/11/22 Aldo Araiza RN [address] [place] [address] Registered Nurse Family Medicine 10/20/24 02/03/25 Claudine Arnold 10/20/24 02/03/25 Lilian Varghese Muff WinderLaborer Driver 07/02/23 documented as of this encounter
--- OUTSIDE RECORDS SUMMARY | 2025-03-08 14:49 | XMS_ITS | Encounter Summary ---
Author Organization [employer] Address [address] 7t [place] [address] Care Team Providers Care Offset Plate Preparation Supervisor Name Role Phone Juani Ssoa Primary Care Provider [phone] Aldo Araiza RN Unavailable [phone] Claudine Arnold Unavailable Reason for Visit * Reason Comments Med Change Request Encounter Details Date Type Department Care Team (Late st Contact Info) Description 08/05/2023 Refill [facility] [address] [place] [address] Leeanne Mandel FNP Moderate persistent asthma with [...] Info) Description 03/13/2025 2:15 PM EST Telemedicine [facility] [address] [place] [address] Nalini Blum RN 03/28/2025 2:00 PM EST Office Visit [facility] [address] [place] [address] Juani Sosa ANP [address] [place] [address] 04/03/2025 1:15 PM EST Office Visit [facility] [address] [place] [address] Jacoby Donald MD [address] [place] [address] documented as of this encounter Visit Diagnoses Diagnosis Moderate persistent asthma with acute exacerbation documented in this encounter Additional Health Concerns Assessment Noted Time PHQ-9 Depression Total Score: 10 024 10:06 AM EST documented as of this encounter Care Teams Offset Plate Preparation Supervisor Relationship Specialty Start Date End Date Juani Sosa ANP 230 [place] [address] PCP - General Family Medicine 02/11/22 Aldo Araiza, SIRISHA 505 [place] [address] Registered Nurse Family Medicine 10/20/24 02/03/25 Claudine Arnold 10/20/24 02/03/25 Lilian Varghese Paper SorterCredit Negotiator 07/02/23 documented as of this encounter
--- OUTSIDE RECORDS SUMMARY | 2025-03-08 14:49 | XMS_ITS | Encounter Summary ---
Author Organization [employer] Address [address] [facility] [facility] [address] 7t [place] [address] Care Team Providers Care Master [place] Name Role Phone Juani Sosa Primary Care Provider [phone] Aldo Araiza RN Unavailable [phone] Claudine Arnold Unavailable Encounter Details Date Type Department Care Team (Late st Contact Info) Description 08/07/2023 Orders Only [facility] [address] [place] [address] Leeanne Mandel FNP Social History Tobacco Use [...] Info) Description 03/13/2025 2:15 PM EST Telemedicine [address] [address] Nalini Blum RN 03/28/2025 2:00 PM EST Office Visit [address] [address] Juani Sosa ANP [address] [place] [address] 04/03/2025 1:15 PM EST Office Visit [address] [address] Jacoby Donald MD [address] [place] [address] documented as of this encounter Visit Diagnoses Not on filedocumented in this encounter Additional Health Concerns Assessment Noted Time PHQ-9 Depression Total Score: 10 024 10:06 AM EST documented as of this encounter Care Teams Master [place] Relationship Specialty Start Date End Date Juani Sosa ANP [address] [place] [address] PCP - General Family Medicine 02/11/22 Aldo Araiza RN [address] [place] [address] Registered Nurse Family Medicine 10/20/24 02/03/25 Claudine Arnold 10/20/24 02/03/25 Lilian Varghese Talent Development AnalystNeuroradiologist 07/02/23 documented as of this encounter
--- OUTSIDE RECORDS SUMMARY | 2025-03-08 14:49 | XMS_ITS | Encounter Summary ---
Author Organization [employer] Address [address] [facility] 7t [place] [address] Care Team Providers Care Manager [place] Name Role Phone Juani Sosa Primary Care Provider [phone] Aldo Araiza RN Unavailable [phone] Claudine Arnold Unavailable Reason for Visit * Reason Onset Date Comments ER Follow-up 11/10/2023 Encounter Details Date Type Department Care Team ([facility] st Contact Info) Description 11/10/2023 Telephone [facility] 230 [place], [place] [phone] Juani Sosa ANP 230 [place], [place] [phone] ER Follow-up Social History Tobacco Use Types [...] encounter Miscellaneous Notes * Telephone Encounter - eSan Arnold - 11/10/2023 9:40 AM EDT Patient calling to report ED visit on : Date: 11/09/23 Hospital: [facility] Seen for: Chest Pain, breathing trouble, and Leg swelling. Patient advised will forward to team nurse for follow up documented in this encounter Plan of Treatment Upcoming Encounters Date Type Department Care Team (Late st Contact Info) Description 03/13/2025 2:15 PM EST Telemedicine [facility] [address] [place] [address] Nalini Blum RN 03/28/2025 2:00 PM EST Office Visit [facility] [address] [place] [address] Juani Sosa ANP [address] [place] [address] 04/03/2025 1:15 PM EST Office Visit [address] [address] Jacoby Donald MD [address] [place] [address] documented as of this encounter Visit Diagnoses Not on filedocumented in this encounter Additional Health Concerns Assessment Noted Time PHQ-9 Depression Total Score: 9 10/06/19 24 11:29 AM EDT documented as of this encounter Care Teams Manager Union Relationship Specialty Start Date End Date Juani Sosa ANP [address] [place] [address] PCP - General Family Medicine 02/11/22 Aldo Araiza, SIRISHA [address] [place] [address] Registered Nurse Family Medicine 10/20/24 02/03/25 Claudine Arnold 10/20/24 02/03/25 Lilian Varghese Civil Engineering SpecialistCoverage Specialist Rn 07/02/23 documented as of this encounter
--- OUTSIDE RECORDS SUMMARY | 2025-03-08 14:49 | XMS_ITS | Encounter Summary ---
Author Organization [employer] Address [address] [facility] [address] 7[address] [place] [address] Care Team Providers Care Corporate Strategy Associate Name Role Phone Juani Sosa Primary Care Provider [phone] Aldo Araiza RN Unavailable [phone] Claudine Arnold Unavailable Reason for Visit * Reason Comments Med Change Request Encounter Details Date Type Department Care Team ([facility] Contact Info) Description 01/13/2023 Refill [facility] 230 [place], [place] [phone] Jacoby Donald MD [address] [place], [place] [phone] Social History Tobacco Use Types Packs/Day Years [...] Info) Description 03/13/2025 2:15 PM EST Telemedicine [address] [address] Nalini Blum RN 03/28/2025 2:00 PM EST Office Visit [address] [address] Juani Sosa ANP [address] [place] [address] 04/03/2025 1:15 PM EST Office Visit [address] [address] Jacoby Donald MD [address] [place] [address] documented as of this encounter Visit Diagnoses Not on filedocumented in this encounter Additional Health Concerns Assessment Noted Time PHQ-9 Depression Total Score: 16 023 9:58 AM EDT documented as of this encounter Care Teams Corporate Strategy Associate Relationship Specialty Start Date End Date Juani Sosa ANP [address] [place] [address] PCP - General Family Medicine 02/11/22 Aldo Araiza RN [address] [place] [address] Registered Nurse Family Medicine 10/20/24 02/03/25 Claudine Arnold 10/20/24 02/03/25 Lilian Varghese Occupational Health RnFurniture Finisher Helper 07/02/23 documented as of this encounter
--- OUTSIDE RECORDS SUMMARY | 2025-03-08 14:49 | XMS_ITS | Clinical Summary ---
Author Organization [employer] Address [address] [place] [address] Care Team Providers Care Network Security Consultant Name Role Phone Alona Crane Primary Care Provider [phone] Allergies Active Allergy Reactions Criticality Noted Date [...] allergic rhinitis due to other allergic trigger Artemas 2 sprays into each nostril every day [...] mouth Once per day. 90 tablet 3 Active senna-docusate sodium (Senokot-S) 8.6-50 MG tabletIndications :Constipation by delayed colonic transit Take 1-2 tabs once daily as needed for constipation 90 tablet 3 Active Buprenorphine HCl-Naloxone HCl (Suboxone) 8-2 MG SL filmIndications:O pioid use disorder Place 1 Film under the tongue 3 times daily. 63 Film 02/22/20 11:32 AM EST 2024 Active hydroCHLOROthiazi de (HYDRODiuril) 25 MG tabletIndications :Bilateral leg edema,Essential hypertension TAKE 1 TABLET BY MOUTH EVERY DAY 90 tablet 03/01/20 25 2:48 PM EST Active methylPREDNISolon e (Medrol Dospak) 4 MG tablets Follow schedule on package instructions 21 tablet 03/03/20 25 12:06 PM EST 025 2024 Active naproxen (Naprosyn) 500 MG tablet Take 1 tablet (500 mg) by mouth if needed in the morning and at bedtime for mild pain. 30 tablet 1 03/03/20 25 12:06 PM EST 025 2025 Active baclofen (Lioresal) 10 MG tablet Take 1 tablet (10 mg) by mouth if needed in the morning, at noon, and at bedtime for muscle spasms. 60 tablet 1 03/03/20 25 12:06 PM EST 025 2025 Active Diclofenac Sodium 1 % gel Apply 2 g topically if needed in the morning, at noon, in the evening, and at bedtime (pain). 150 g 3 03/03/20 25 12:06 PM EST Active lidocaine (Lidoderm) 5 % patch Apply 1-2 patches topically if needed each day for mild pain. Remove & discard patch within 12 hours or as directed by MD. 60 patch 1 03/03/20 25 12:06 PM EST Active gabapentin (Neurontin) 100 MG capsule Take 1 capsule (100 mg) by mouth 3 times daily. 90 capsule 1 03/03/20 25 12:06 PM EST 025 2025 Active azithromycin (Zithromax) 250 MG tabletIndications :Bronchitis Take 2 tabs PO daily x 1d then 1 tab PO daily on D2 to D5 6 tablet 03/08/20 12:48 PM EST Active predniSONE (Deltasone) 20 MG tabletIndications :Bronchitis Take 2 tablets (40 mg) by mouth Once per day for 5 days. 10 tablet 03/08/20 12:48 PM EST 025 2024 Active hydroCHLOROthiazi de (HYDRODiuril) 25 MG tabletIndications :Bilateral leg edema,Essential hypertension Take 1 tablet (25 mg) by mouth Once per day. 90 tablet 025 2024 Discontinued Buprenorphine HCl-Naloxone HCl (Suboxone) 8-2 MG SL filmIndications:O pioid use disorder Place 1 Film under the tongue 3 times daily for 21 days. 63 Film 025 2024 Discontinued(R eorder (will not trigger notification to Pharmacy)) oxyCODONE (Roxicodone) 5 MG immediate release tablet Take 10 mg by mouth every 6 (six) hours if needed for severe pain or moderate pain. 2024 Discontinued(R eorder (will not trigger notification to Pharmacy)) oxyCODONE (Roxicodone) 10 MG immediate release tabletIndications :S/P total knee arthroplasty, right Take 1 tablet (10 mg) by mouth every 6 (six) hours if needed for severe pain or moderate pain for up to 7 days. 28 tablet 025 2024 traMADol (Ultram) 50 MG tabletIndications :Mid back pain, chronic Take 1 tablet (50 mg) by mouth if needed in the morning, at noon, and at bedtime for severe pain for up to 3 days. 9 tablet 025 2024 Hospital, Clinic, or Other Facility Administered Medication Ordered Dose Route Frequency Start Date End Date Status ketorolac (Toradol) injection 30 mgIndications:Mid back pain, chronic 30 mg IM Once 03/02/2025 03/02/2025 Ended Active Problems Problem Noted Date Diagnosed Date Rib pain 03/08/2025 Bronchitis 03/08/2025 Influenza 03/08/2025 Assessment & Plan (03/08/2025 12:21 PM EST): Today positive for influenza A and B Counseling to rest and drink plenty of fluids Acute pain of right knee 03/08/2025 S/P total knee arthroplasty, right 02/20/2025 Right [...] think is appropriate to refer to an welding specialist she may require further testing. In the meantime I have recommended against the use of NSAIDS going forward and protect herself when outdoors. Since her symptoms are resolved no need for treatment at the moment. Pt has Zyrtec at home which she will continue to take. Abnormal nuclear stress test 08/05/2023 Acute bronchitis with chroni c obstructive pulmonary disease (COPD) ([facility]) ([facility]) 08/05/2023 Dyspnea on exertion 08/05/2023 Gastroparesis [...] retiring, pt will be referred to new [facility] Psychiatric provider. Pt is aware that appts will be via televisit and that provider will not be an [facility] employee. She gives permission to share [...] hypertension 09/03/2016 Moderate alcohol dependence (CMS/HCC) 09/03/2016 Overview (01/11/2025): Stopped drinking 2022 or [...] and Suboxone. She will also F/U with [facility] clinician Nilson and the supports of the [facility] program. F/U with me in 2-3 weeks. She agrees with the plan. Opioid abuse 07/02/2022 05/17/2024 Encounters Date Type Department Care Team Description 03/08/2025 10:15 AM EST Office Visit [facility] [address] [place] [phone] Tamia Luna MD Influenza (Primary Dx); Urinary tract infection symptoms; Rib pain; Bronchitis; Acute pain of right knee 03/08/2025 Travel 03/07/2025 Telephone [facility] [address] [place] [phone] Alona Crane ANP Prior Authorization 03/07/2025 Telephone [facility] [address] [place] [address] Alona Crane ANP Chart Prep 03/06/2025 Telephone [facility] [address] [place] [phone] Alona Crane ANP Appointment Request 03/02/2025 1:40 PM EST Office Visit [facility] [address] [place] [phone] Selina Escobar DO Mid back pain, chronic (Primary Dx) 03/02/2025 Travel 02/27/2025 Refill [facility] [address] [place] [address] Alona Crane ANP S/P total knee arthroplasty, right 02/24/2025 Telephone [facility] [address] [place] [address] Alona Crane ANP Medication Question 02/24/2025 Telephone [facility] [address] [place] [address] Alona Crane ANP Medication Question 02/23/2025 Refill [facility] [address] [facility] [place] [address] Alona Crane ANP Bilateral leg edema; Essential hypertension 02/20/2025 1:45 PM EST Telemedicine [facility] [address] [place] [address] Jacoby Donald MD Uncomplicated opioid dependence (CMS/HCC) (HCC) (Primary Dx); S/P total knee arthroplasty, right 02/13/2025 Refill [facility] [address] [place] [address] Nalini Blum RN Opioid use disorder 02/09/2025 Refill [facility] [address] [place] [address] Maxwell Denson MD Right wrist pain 02/08/2025 Telephone [facility] [address] [place] [phone] Alona Crane ANP Durable Medical Equipment 02/08/2025 Orders Only GENERIC EXTERNAL DATA DEPARTMENT Provider, Generic External Data 02/07/2025 Orders Only GENERIC EXTERNAL DATA DEPARTMENT Provider, Generic External Data 02/06/2025 Orders Only GENERIC EXTERNAL DATA DEPARTMENT Provider, Generic External Data 02/03/2025 Patient Outreach [facility] [address] [place] [phone] Alona Crane ANP Care Management (C3CM- f/u call) 02/02/2025 Orders Only GENERIC EXTERNAL DATA DEPARTMENT Provider, Generic External Data 02/01/2025 Patient Outreach [facility] [address] [place] [phone] Alona Crane ANP Care Coordination (Appointment reminder) 01/30/2025 1:30 PM EST Telemedicine [address] [address] Jacoby Donald MD Uncomplicated opioid dependence (CMS/HCC) (HCC) (Primary Dx) 01/30/2025 Travel 01/23/2025 Patient Outreach [address] [address] Alona Crane ANP Care Management (C3CM- f/u call) 01/23/[address] [address] Nalini Blum RN Opioid use disorder 01/20/2025 9:40 AM EDT Office Visit [facility] [address] [address] Vijay Mojica MD Acute non-recurrent frontal sinusitis (Primary Dx) 01/20/2025 Travel 01/17/2025 Patient Outreach [address] [address] Alona Crane ANP Care Coordination (Appointment reminder) 01/13/[address] [address] Alona Crane ANP March01/11/2025 2:30 PM EDT Office Visit [address] [address] Alona Crane ANP Preoperative clearance (Primary Dx); Essential hypertension; KENDRA (obstructive sleep apnea); Alcohol dependence in early full remission (CMS/HCC) (HCC); LBBB (left bundle branch block); Primary osteoarthritis of right knee; Dietary counseling; Exercise counseling; Cardiovascular event risk; Constipation by delayed colonic transit; Uses roller walker 01/11/2025 Travel 01/10/[address] [address] Alona Crane ANP Medication Question 01/10/2025 Patient Outreach [address] [address] Alona Crane ANP Care Coordination (Appointment reminder) 01/09/2025 1:00 PM EDT Clinical Support [address] [address] Nalini Blum RN Uncomplicated opioid dependence (CMS/HCC) (HCC) (Primary Dx) 01/09/[address] [address] Alona Craen ANP chart prep 01/09/2025 Travel 01/06/2025 Patient Outreach [address] [address] Alona Crane ANP Care Management (C3CM- f/u call) 01/05/2025 Orders Only GENERIC EXTERNAL DATA DEPARTMENT Provider, Generic External Data 01/03/2025 Patient Outreach [address] [address] Alona Crane ANP 01/02/[address] [address] Nalini Blum RN Opioid use disorder 01/02/2025 Patient Outreach [address] [address] Alona Crane ANP Care Coordination (Appointment reminders) 12/31/2024 Orders Only GENERIC EXTERNAL DATA DEPARTMENT Provider, Generic External Data 12/30/2024 Orders Only [facility] External Provider, [facility] 12/28/2024 Patient Outreach [address] [address] Alona Crane ANP Care Coordination (SDOH f/u -appointment reminder) 12/27/2024 Patient Outreach [address] [address] Alona Crane ANP Care Management (C3CM- f/u call) 12/19/2024 2:30 PM EDT Telemedicine [address] [address] Jacoby Donald MD Uncomplicated opioid dependence (CMS/HCC) (Primary Dx) 12/19/2024 Travel 12/14/[address] [address] Nalini Blum, RN Opioid use disorder 12/13/2024 Patient Outreach [address] [address] Alona Crane ANP Care Coordination (SDOH f/u) 12/13/2024 Patient Outreach [address] [address] Alona Crane ANP Care Management (C3CM- f/u call) from Last 3 Months Immunizations Immunization Administration [...] Mass Index 43.53 03/08/2025 10:29 AM EST Plan of Treatment Upcoming Encounters Date Type Department Care Team (Late st Contact Info) Description 03/13/2025 2:15 PM EST Telemedicine [facility] [address] [place] [address] [phone] Nalini Blum RN 03/28/2025 2:00 PM EST Office Visit [facility] [address] [place] [address] Alona Crane ANP [address] [place], [place] [phone] 04/03/2025 1:15 PM EST Office Visit [facility] [address], [place] [phone] Jacoby Donald MD [address] [place], [place] [phone] Health Maintenance Due Date Last Done Comments [...] 07/21/2024, 07/04/2024, Additional history exists Tobacco Screening 03/08/2026 03/08/2025 Colorectal Cancer Screening 05/28/2027 FIT DNA/Cologuard 05/28/2027 [...] 10:43 AM EST Urinary tract infection symptoms BASIC METABOLIC PANEL, FASTING Routine 02/08/2025 6:12 [...] WO CONTRAST Routine 12/30/2024 10:35 PM EDT HEPATITIS C AB W/REFL TO [...] Recently Relevant to Health Maintenance Results * XR Ribs 3 Views Right with Chest 1 View (03/08/2025 11:45 AM EST) Anatomical Region Laterality Modality Radiographic Tricia ging 03/08/2025 11:4 5 AM EST Narrative 03/08/2025 2:33 [place] [address] XRay Report Signed Patient: Gaby Arteaga MR#: [id number] 46 : 1965 Acct:[id number] Age/Sex: 59 / F ADM Date: 03/08/25 Loc: .HHCX Attending Dr: Tamia Beckham MD Ordering Physician: Tamia Luna MD Date of Service: 03/08/25 Procedure(s): XR ribs RT min 3V w CXR1V Accession Number(s): [id number] cc: Tamia Luna MD; ALONA CRANE NP [...] 03/08/25 1430 DD/ 1145 TD/TT: 03/08/25 1150 Bond Runner: Procedure Note Donotuseinterpreter, Image - 03/08/[address] [address] XRay Report Signed Patient: Wyatt Arteaga#: [id number] 46 : 1965Acct:[id number] Age/Sex: 59 / FADM Date: 03/08/25 Loc: HO.HHCX Attending Dr: Tamia Beckham MD Ordering Physician: Tamia Luna MD Date of Service: 03/08/25 Procedure(s): XR ribs RT min 3V w CXR1V Accession Number(s): [id number] cc: Tamia Luna MD; ALONA CRANE NP [...] 03/08/25 1430 DD/ 1145 TD/TT: 03/08/25 1150 Bond Runner: Tamia Beckham MD IMG XR PROCEDURES Fin al Result * (ABNORMAL) POCT Rapid Influenza B REYNOSO ID NOW (03/08/2025 11:13 AM EST) Influenza B Positive( A) Negative, Indeterminate [facility] QC Media Lot # [id number] [facility] Lot# Expiration Date [facility] Swab 03/08/2025 11:1 3 AM EST Tamia Beckham MD POINT OF CARE TEST ENTER/EDIT ORDERABLES Edited Result - Final Performing Organization Address [facility] Co de Phone Number [facility] [address] [place] [phone] * (ABNORMAL) POCT Rapid Influenza A REYNOSO ID NOW (03/08/2025 11:13 AM EST) Influenza A Positive( A) Negative, Indeterminate [facility] QC Media Lot # [id number] [facility] Lot# Expiration Date [facility] Swab 03/08/2025 11:1 3 AM EST Tamia Beckham MD POINT OF CARE TEST EN TER/EDIT ORDERABLES Final Result Performing Organization Address City/[facility] Co de Phone Number [facility] [address] [place] [phone] * POCT Rapid Covid-19 BinaxNOW (03/08/2025 11:12 AM EST) Rapid COVID Ag Negative QC Media Lot # [id number] Lot# Expiration Date 82,426 Swab 03/08/2025 11:1 2 AM EST Tamia Beckham MD POINT OF [...] Media Lot # [id number] Lot# Expiration Date 95 Urine (Urine, Random) 03/08/2025 10:43 AM EST Tamia Beckham MD POINT OF CARE TEST EN TER/EDIT ORDERABLES Final Result * (ABNORMAL) Basic Metabolic Panel, Fasting (02/08/2025 6:12 AM EST) Only the most recent of2 resultswithin the time period is included. Sodium 140 135 - 145 mmol/L [facility] Potassium 3.6 3.3 - 5.1 mmol/L [facility] Chloride 105 96 - 108 mmol/L [facility] Carbon Dioxide 28 22 - 29 mmol/L [facility] Anion Gap 11(L) 12 - 20 [facility] Urea Nitrogen (BUN) 16 9 - 16 mg/dL [facility] Creatinine, Serum 0.61 0.5 - 1.4 mg/dL [facility] Creatinine Clr Calc Pharmacy 114.8 [facility] Comment:Provided height and weight: 157.48 cm,105.687 kg.eGFR (calculated from the MDRD study equation) and eCrCl(calculated from the Cockcroft-Gault equation) are based ondifferent parameters and may not yield comparable results.If eCrCl result is absurd, please check patient'sheight/weight. Estimated Glomerular Filt Rate >60 [facility] Comment:Chronic Kidney Disea se: Estimated GFR < 60 mL/min/[id number] Kidney Disease: Estimated GFR < 15 mL/min/1.73m2 Glucose Fasting 100(H) 60 - 99 mg/dL [facility] Comment:A fasting glucose fr om 100-125 mg/dl is considered impaired(pre-diabetes). Calcium 8.3(L) 8.4 - 10.2 mg/dL [facility] 02/08/2025 6:1 2 AM EST 02/08/2025 6:12 AM EST us Generic External Data Provider LAB BLOOD ORDERAB LES Final Result [facility] [address] [place] [phone] * (ABNORMAL) CBC auto differential (02/08/2025 5:27 AM EST) Only the most recent of2 resultswithin the time period is included. White Blood Count 9.0 4.8 - 10.8 X10*3/uL [facility] Red Blood Count 3.36(L) 4.20 - 5.50 X10*6/uL [facility] Hemoglobin 9.4(L) 12.0 - 16.0 g/dl [facility] Hematocrit 29.7(L) 37.0 - 47.0 % [facility] Mean Corpuscular Volume 88.4 80.0 - 98.0 fL [facility] Mean Corpuscular Hemoglobin 28.0 27.0 - 33.0 pg [facility] Mean Corpuscular HGB Conc 31.6 31.0 - 35.0 g/dl [facility] Red Cell Distribution Width 13.3 11.0 - 16.0 % [facility] Platelet Count 263 160 - 400 X10*3/uL [facility] Mean Platelet Volume 9.1(L) 9.4 - 12.3 fL [facility] Neutrophils Percent Auto 58.3 45 - 73 % [facility] Imm Gran Pct Auto 0.3 0.0 - 0.4 % [facility] Lymphocytes Percent Auto 25.7 20 - 40 % [facility] Monocytes Percent Auto 12.3(H) 2 - 11 % [facility] Eosinophils Percent Auto 2.8 0 - 4 % [facility] Basophils Percent Auto 0.6 0 - 2 % [facility] NRBC Pct Auto 0.0 0.0 - 0.2 /100WBC [facility] Neutrophils Absolute Auto 5.2 2.0 - 8.3 x10*3/uL [facility] Imm Gran Abs Auto 0.03 0.00 - 0.03 X10*3/uL [facility] Lymphocytes Absolute Auto 2.3 1.2 - 4.9 X10*3/uL [facility] Monocytes Absolute Auto 1.1 0.1 - 1.2 X10*3/uL [facility] Eosinophils Absolute Auto 0.3 0.0 - 0.4 X10*3/uL [facility] Basophils Absolute Auto 0.1 0.0 - 0.2 X10*3/uL [facility] NRBC Abs Auto 0.000 0.0 - 0.012 X10*3/uL [facility] 02/08/2025 5:27 AM EST 02/08/2025 6:12 AM EST us Generic External Data Provider LAB BLOOD ORDERAB LES Final Result Performing Organization Address City/State/[facility] Co de Phone Number [facility] [address] [place] [phone] * Gross and Microscopic Level 4 (02/06/2025 10:48 AM EST) 02/06/2025 10:4 8 AM EST 02/06/2025 1:26 PM EST Narrative [facility] - 02/08/2025 3:41 PM EST ----- ------- Name: Gaby Arteaga Age/Sex: 59/F : 1965 [id number] Unit#: [id number] Attend Dr: Tim Mcdermott MD Re02/06/25 Status: [facility] Location: [facility] Disch: ----- ------- SPEC : [id number] RECD: 02/06/25 STATUS: CRISTIAN REECE NUM: [id number] KEYUR: 02/06/25-[address] [facility] [address]: Tim Mcdermott MD ENTERED: 02/06/25 SP TYPE: Surgical OTHR DR: ALONA CRANE MAIL SERVICE COORDINATOR ORDERED: Gross Micro L4, Decal Diagnosis Bone, [...] measuring 4.2 x 1.5 x 1.2 cm. Batter Mixer Helper sections are submitted for microscopic examination, following decalcification, 4 pieces in cassette A1. ([facility]) IHC S/NG Disclaimer NOTE: Unless otherwise stated, all tissue is formalin-fixed and paraffin-embedded. Some or all of the immunohistochemical tests reported herein may have been developed and their performance characteristics determined by [facility]. They have not been cleared or [...] Gaby Arteaga Age/Sex: 59/F : 1965 Unit#: [id number] Attend Dr: Tim Mcdermott MD Re02/06/25 Status: [facility] Location: [facility] Disch: ----- ------- SPEC : [id number] RECD: 02/06/25 STATUS: CRISTIAN REECE NUM: [id number] KEYUR: 02/06/[address]: Tim Mcdermott MD ENTERED: 02/06/25 SP TYPE: Surgical OTHR DR: ALONA CRANE NP ORDERED: Gross Adal L4, Decal Copies To: Tim Mcdermott MD [facility] [address] [place] [address] [address] [place] [address] [email or web address] ALONA CRANE NP [address] [address] ----- ------- Signed (signature on file) Blanca Beck MD 02/08/25 1541 ----- ------- END OF REPORT Generic External Data Provider LAB SETH ALEE HILLMAN Final Result [facility] [address] [place] [phone] * Prothrombin Time-INR (02/02/2025 9:14 AM EST) Prothrombin Time 12.0 11.2 - 13.5 SEC [facility] INTERNATIONAL NORM RATIO 1.0 0.9 - 1.1 [facility] Comment:INTERNATIONAL NORMAL IZED RATIO (INR) [...] AM EST 02/02/2025 9:14 AM EST us Alona Crane ANP LAB BLOOD ORDERABLES Final Resul t [facility] [address] [place] [address] [phone] * (ABNORMAL) CBC (02/02/2025 9:14 AM EST) White Blood Count 8.8 4.8 - 10.8 X10*3/uL [facility] Red Blood Count 4.21 4.20 - 5.50 X10*6/uL [facility] Hemoglobin 11.9(L) 12.0 - 16.0 g/dl [facility] Hematocrit 37.4 37.0 - 47.0 % [facility] Mean Corpuscular Volume 88.8 80.0 - 98.0 fL [facility] Mean Corpuscular Hemoglobin 28.3 27.0 - 33.0 pg [facility] Mean Corpuscular HGB Conc 31.8 31.0 - 35.0 g/dl [facility] Red Cell Distribution Width 12.8 11.0 - 16.0 % [facility] Platelet Count 322 160 - 400 X10*3/uL [facility] Mean Platelet Volume 8.9(L) 9.4 - 12.3 fL [facility] NRBC Pct Auto 0.0 0.0 - 0.2 /100WBC [facility] NRBC Abs Auto 0.000 0.0 - 0.012 X10*3/uL [facility] 02/02/2025 9:14 AM EST 02/02/2025 9:14 AM EST us Generic External Data Provider LAB BLOOD ORDERAB LES Final Result Performing Organization Address City/[facility]/ZIP Co de Phone Number [facility] [address] [place] [phone] * (ABNORMAL) Hemoglobin A1c (02/02/2025 9:14 AM EST) Hemoglobin A1c 6.3(H) <6.0 % [facility] Comment:Hemoglobin A1C Refer ence Range Adults: 4.8 - 6.0 % Non diabetic: < 6.0 % Goal: < 7.0 %Additional Action Suggested: > 8.0 %Note: Hemoglobin A1c results are invalid for patients with abnormal amounts of HbF. Blood transfusions may impact the HbA1c concentration in the patient sample. Estimated Average Glucose 134 mg/dL [facility] Comment:eAG = Estimated ave rage glucose which is %A1C expressed asaverage glucose, using the formula of the W5Z-OdcnzmsGyiswex Glucose study (ADAG), Diabetes Care, Vol.31,#8,2007 02/02/2025 9:14 AM EST 02/02/2025 9:14 AM EST us Generic External Data Provider LAB BLOOD ORDERAB LES Final Result [facility] [address] [place] [phone] * (ABNORMAL) Basic Metabolic Panel (02/02/2025 9:14 AM EST) Sodium 141 135 - 145 mmol/L [facility] Potassium 3.6 3.3 - 5.1 mmol/L [facility] Chloride 102 96 - 108 mmol/L [facility] Carbon Dioxide 32(H) 22 - 29 mmol/L [facility] Anion Gap 11(L) 12 - 20 [facility] Urea Nitrogen (BUN) 19(H) 9 - 16 mg/dL [facility] Creatinine, Serum 0.63 0.5 - 1.4 mg/dL [facility] Creatinine Clr Calc Pharmacy 111.1 [facility] Comment:Provided height and weight: 157.48 cm,105.687 kg.eGFR (calculated from the MDRD study equation) and eCrCl(calculated from the Cockcroft-Gault equation) are based ondifferent parameters and may not yield comparable results.If eCrCl result is absurd, please check patient'sheight/weight. Estimated Glomerular Filt Rate >60 [facility] Comment:Chronic Kidney Disea se: Estimated GFR < 60 mL/min/[id number] Kidney Disease: Estimated GFR < 15 mL/min/1.73m2 Glucose 112 60 - 115 mg/dL [facility] Calcium 8.9 8.4 - 10.2 mg/dL [facility] 02/02/2025 9:14 AM EST 02/02/2025 9:14 AM EST Generic External Data Provider LAB BLOOD ORDERAB LES Final Result Performing Organization Address [facility] Co de Phone Number [facility] [address] [place] [address] [phone] * Type and screen (02/02/2025 9:03 AM EST) Blood Type OP [facility] Antibody Screen NEGATIVE [facility] 02/02/2025 9:03 AM EST 02/02/2025 9:26 AM EST Narrative [facility] - 02/02/2025 10:24 AM EST Spec expiration changed by CELINA on 02/02/25Reason: PATWITNESSED BY ZULEYMAMNURSING:Call Blood Bank (ext. [phone]) to band patient on admission.Type and Screen in effect until 2300 on 02/06/2025 Generic External Data Provider LAB BLOOD BANK TE ST ORDERABLES Final Result Performing Organization Address [facility] Co de Phone Number [facility] [address] [place] [address] [phone] * (ABNORMAL) POCT [id number] Urine Drug [...] PM EDT) MRSA Nasal PCR NEGATIVE Negative [facility] SA Nasal PCR POSITIVE(A) Negative [facility] MRSA Interpretation SEE NOTE [facility] Comment:MRSA target DNA not detected; SA target DNA detected.A MRSA NEGATIVE, SA POSITIVE test result does not precludeMRSA nasal colonization. 01/05/2025 12:0 0 PM EDT 01/05/2025 12:45 PM EDT Generic External Data Provider LAB MICROBIOLOGY - GENERAL ORDERABLES Final Result Performing Organization Address City/[facility]/ZIP Co de Phone Number [facility] [address] [place] [phone] * Culture, Urine, Routine (12/31/2024 12:00 AM EDT) Urine Urine specimen obtained by clean catch procedure / Unknown 12/31/2024 12/31/2024 Comment:UACC Narrative [facility] - 01/01/2025 10:03 AM EDT Urine Culture Report Result Urine Culture < 10,000 cfu/ml Specimen Source: Urine clean catch Generic External Data Provider LAB MICROBIOLOGY - GENERAL ORDERABLES Final Result Performing Organization Address City/[facility]/ZIP Co de Phone Number [facility] [address] [place] [phone] * (ABNORMAL) Urinalysis, Complete, with Reflex to Culture (12/30/2024 11:51 PM EDT) Color Urine Yellow [facility] Appearance Urine Cloudy [facility] PH >=9.0 5.0 - 9.0 [facility] Glucose Urine UA Negative Negative mg/dL [facility] Urine Blood Negative Negative [facility] Specific [place] - Urine 1.020 1.005 - 1.025 [facility] Urine Protein 30 (1+)(A) Neg-Trace mg/dL [facility] Urine Ketones Negative Negative mg/dL [facility] Nitrite Urine Negative Negative [facility] Leukocyte Esterase Urine Small (1+)(A) Negative [facility] RBC Urine 0-2 0 - 2 /HPF [facility] Urine WBC 6-10(A) 0 - 5 /HPF [facility] Urine Squamous Epithelial Cell 3-5 0 - 2 /HPF [facility] Urine Bacteria None Seen None Seen [facility] Hyaline Casts, Urine 0-2 0 - 2 /LPF [facility] 12/30/2024 11:5 1 PM EDT 12/30/2024 11:54 PM EDT Narrative [facility] - 12/31/2024 12:04 AM EDT [id number], Clean Catch us Generic External Data Provider LAB URINE ORDERAB LES Final Result [facility] [address] [place] [phone] * High Sensitivity Troponin I (12/30/2024 11:09 PM EDT) TROPONIN I HIGH SENSITIVITY <2.7 <3.5 - 17.0 ng/L [facility] Comment:The [place] high sens itivity Troponin-I results should beused in conjunction with other diagnostic information suchas ECG, clinical observations and information, and patientsymptoms to aid in the diagnosis of AL. 12/30/2024 11:0 9 PM EDT 12/30/2024 11:15 PM EDT us Generic External Data Provider LAB BLOOD ORDERAB LES Final Result [facility] [address] [place] [phone] * CT Abdomen Pelvis w/o Contrast (12/30/2024 10:35 PM EDT) Anatomical Region Laterality Modality Body, Pelvis, Abdomen Computed T omography 12/30/2024 10:3 5 PM EDT Narrative 12/30/2024 10:36 PM EDT [address] [address] [address] Scan Report Signed Patient: Gaby Arteaga MR#: [id number] 46 : 1965 Acct:[id number] Age/Sex: 59 / F ADM Date: 12/30/24 Loc: HO.ED Attending Dr: Ordering Physician: Paul Bolden MD Date of Service: 12/30/24 Procedure(s): CT abdomen pelvis wo IV con Accession Number(s): [id number] cc: aPul Bolden MD; ALONA CRANE NP Report Number: [id number]: Total DLP = 849.00 mGy-cm Reason for [...] in OV> 12/30/242235 DD/ 34 TD/TT: 12/30/242234 Bond Runner: Procedure Note Donotuseinterpreter, Image - 12/30/[address] [address] [address] Scan Report Signed Patient: Wyatt Arteaga#: [id number] 46 : 1965Acct:[id number] Age/Sex: 59 / FADM Date: 12/30/24 Loc: .ED Attending Dr: Ordering Physician: Paul Bolden MD Date of Service: 12/30/24 Procedure(s): CT abdomen pelvis wo IV con Accession Number(s): [id number] cc: Paul Bolden MD; ALONA CRANE NP Report Number: [id number]: Total DLP = 849.00 mGy-cm Reason for [...] in OV> 12/30/242235 DD/ 34 TD/TT: 12/30/242234 Bond Runner: [facility] External Provider IMG CT PROCEDURES Edited Result - Final * Hepatitis C Antibody with Reflex to HCV, RNA, Quantitative, Real-Time PCR (07/04/2024 2:31 PM EDT) Hepatitis C Antibody Nonreactive Nonreactive [facility] Comment:Antibodies to HCV no t detected; does not exclude early acuteHCV infection. 07/04/2024 2:31 PM EDT 07/04/2024 4:02 PM EDT Result [facility] Jacoby Donald MD LAB BLOOD ORDERABLES Final Resul t [facility] [address] [place] [phone] * HIV-1/2 Antigen and Antibodies, Fourth Generation, with Reflexes (07/04/2024 2:31 PM EDT) HIV AB/AG Nonreactive Nonreactive [facility] Comment:HIV-1 p24 Ag and/or HIV-1/HIV-2 Ab not detected.A test result that is nonreactive does not exclude thepossibility of exposure to or infection with HIV-1 and/orHIV-2. Nonreactive results in this assay for individualswith prior exposure to HIV-1 and/or HIV-2 may be due toantigen and antibody levels that are below the limit ofdetection of this assay.The [employer] HIV Ag/Ab Combo assay result andsupplemental assay results should be interpreted inconjunction with the patient's clinical presentation,history and other laboratory results. If the results areinconsistent with clinical evidence, additional testing issuggested to confirm the result. 07/04/2024 2:31 PM EDT 07/04/2024 4:02 PM EDT us Jacoby Donald MD LAB BLOOD ORDERABLES Final Resul t [facility] [address] [facility] [place] [address] [phone] * BI Mammogram Screening Tomosynthesis Bilateral (06/17/2024 2:15 PM EDT) Anatomical Region Laterality Modality Breast Bilateral Mammography 06/17/2024 2:15 PM EDT Narrative 06/25/2024 3:10 PM EDT [facility] [address] [place] [address] Mammography Report Signed Patient: Gaby Arteaga MR#: [id number] 46 : 1965 Acct:[id number] Age/Sex: 58 / F ADM Date: 06/17/24 Loc: HO.MAMMO Attending Dr: Alona Crane NP Ordering Physician: ALONA CRANE NP Results: 1Negative Date of Service: 06/17/24 Follow Up: 1 Year From Orig inal Mammogram Procedure(s): MM tomosynthesis screening BI Accession Number(s): [id number] cc: ALNOA CRANE NP EXAMINATION: MM SCREENING DIGITAL BREAST [...] 06/25/24 1506 DD/ 1415 TD/TT: 06/17/24 1440 Bond Runner: Procedure Note Donotuseinterpreter, Image - 06/25/20[facility] [address] [place] [address] Mammography Report Signed Patient: Wyatt Arteaga#: [id number] 46 : 1965Acct:[id number] Age/Sex: 58 / FADM Date: 06/17/24 Loc: MAMMO Attending Dr: Alona Crane NP Ordering Physician: ALONA CRANE NPResults: 1Negative Date of Service: 06/17/24Follow Up: 1 Year From Orig inal Mammogram Procedure(s): MM tomosynthesis screening BI Accession Number(s): [id number] cc: ALONA CRANE NP EXAMINATION: MM SCREENING [...] 06/25/24 1506 DD/ 1415 TD/TT: 06/17/24 1440 Bond Runner: Alona Crane BLANKA IM BI PROCEDURES Edited Result - Final * (ABNORMAL) Cologuard?? colon cancer screening (05/27/2024 2:49 PM EST) Cologuard Result Positive( A) Negative 06/04/2024 5:36 PM EDT [facility] (CLIA #:[id number]) Comment: POSITIVE TEST RESULT. A positive Cologuard [...] (Roverto Camargo al, N Engl J Med 2014;370(14):3888-8930.) Cologuard may produce a false negative or false positive result (no colorectal cancer or precancerous polyp present at colonoscopy follow up). A negative Cologuard test result does not guarantee the absence of CRC or advanced adenoma (pre-cancer). The current Cologuard screening interval is every 3 years. ([employer] Society and U.S. Multi-Society Task Force). Cologuard performance data in a 10,000 patient pivotal study using colonoscopy as the reference method can be accessed at the following location: www.Anxa/results. Additional description of the Cologuard test process, warnings and precautions can be found at www.Kleermail.com. Stool specimen (specimen) 05/27/2024 2:49 PM EST 05/29/2024 11:29 PM EDT [facility] MOLECULAR DIAGNOSTICS ORDERA BLES Final Result [facility] (CLIA #:[id number]) [place] [address], * (ABNORMAL) LIPID PANEL, STANDARD (04/03/2020 2:27 [...] factors. LDL-C is now calculated using the Faustino-Misael calculation, which is a validated novel method providing better accuracy than the Friedewald equation in the estimation of LDL-C. Faustino MCLAIN et al. NICHOLAS. 2013;310(19): 5459-1245 (http://education.bop.fm.com/faq/ESX993) Non-HDL Cholesterol 157(H) <130 mg/dL (calc) [facility] [address] [place] [address], from Last 3 Months or Most Recently Relevant to Health Maintenance Insurance [employer] C3 Care Teams Network Security Consultant Relationship Specialty Start Date End Date Alona Crane ANP [address] [place] [address] PCP - General Family Medicine 02/11/22 Lilian Varghese Knit Goods WasherChildren Teacher 07/02/23
--- OUTSIDE RECORDS SUMMARY | 2025-03-08 14:49 | XMS_ITS | Encounter Summary ---
Author Organization [employer] Address [address] [facility] 7t [place] [address] Care Team Providers Care Maintenance Mgr Name Role Phone Juani Sosa Primary Care Provider [phone] Aldo Araiza RN Unavailable [phone] Claudine Arnold Unavailable Reason for Visit * Reason Onset Date Comments Pre op 04/13/2023 Encounter Details Date Type Department Care Team ([facility] st Contact Info) Description 04/13/2023 Telephone [facility] [address] [place], [place] [phone] Juani Sosa ANP [address] [place], [place] [phone] Pre op Social History Tobacco Use Types [...] Surgeon's name: Dr Tim Mcdermott Facility name: [facility] Ortho Surgeon's office number: [phone] Surgeon's office fax number: [phone] Contact name (person you spoke with): Ngoc [facility] Last office note from surgeon requested: no documented in this encounter Plan of Treatment Upcoming Encounters Date Type Department Care Team (Late st Contact Info) Description 03/13/2025 2:15 PM EST Telemedicine [facility] [address] [place] [phone] Nalini Blum RN 03/28/2025 2:00 PM EST Office Visit [facility] [address] [place] [phone] Juani Sosa ANP [address] [place] [address] 04/03/2025 1:15 PM EST Office Visit [facility] [address] [place] [address] Jacoby Donald MD [address] [place], [place] [phone] documented as of this encounter Visit Diagnoses Not on filedocumented in this encounter Additional Health Concerns Assessment Noted Time PHQ-9 Depression Total Score: 14 024 10:44 AM EST documented as of this encounter Care Teams Maintenance Mgr Relationship Specialty Start Date End Date Juani Sosa ANP [address] [place] [address] PCP - General Family Medicine 02/11/22 Aldo Araiza, SIRISHA [address] [place] [phone] Registered Nurse Family Medicine 10/20/24 02/03/25 Claudine Arnold 10/20/24 02/03/25 Lilian Varghese Tech Brazer TesterSupervisor Hot Dip Tinning 07/02/23 documented as of this encounter
--- OUTSIDE RECORDS SUMMARY | 2025-03-08 14:49 | XMS_ITS | Encounter Summary ---
Author Organization [employer] Address [address] [facility] [address] [place] [address] Care Team Providers Care Observer Helper Name Role Phone Juani Sosa Primary Care Provider Aldo Araiza RN Unavailable [phone] Claudine Arnold Unavailable Reason for Visit * Reason Onset Date Comments Durable Medical Equipment 02/17/2023 Edvin Encounter Details Date Type Department Care Team ([facility] st Contact Info) Description 02/17/2023 Telephone [facility] [address] [place], [place] [phone] Juani Sosa ANP [address] [place] [address] Durable Medical Equipment (Walker) Social History Tobacco [...] Walker states requested back in November however instructional writer does not see it on patients chart. documented in this encounter Plan of Treatment Upcoming Encounters Date Type Department Care Team (Late st Contact Info) Description 03/13/2025 2:15 PM EST Telemedicine [facility] [address] [place] [address] Nalini Blum RN 03/28/2025 2:00 PM EST Office Visit [facility] [address] [place] [phone] Juani Sosa ANP [address] [place] [phone] 04/03/2025 1:15 PM EST Office Visit [address] [address] Jacoby Donald MD [address] [place] [address] documented as of this encounter Visit Diagnoses Not on filedocumented in this encounter Additional Health Concerns Assessment Noted Time PHQ-9 Depression Total Score: 16 023 9:58 AM EDT documented as of this encounter Care Teams Observer Helper Relationship Specialty Start Date End Date Juani Sosa ANP [address] [place] [address] PCP - General Family Medicine 02/11/22 Aldo Araiza, SIRISHA [address] [place] [address] Registered Nurse Family Medicine 10/20/24 02/03/25 Claudine Arnold 10/20/24 02/03/25 Lilian Varghese Head OperatorCommissary Assistant 07/02/23 documented as of this encounter
--- OUTSIDE RECORDS SUMMARY | 2025-03-08 14:49 | XMS_ITS | Encounter Summary ---
Author Organization [employer] Address [address] [facility] [address] 7[address] [place] [address] Care Team Providers Care Digital Media Associate Name Role Phone Ian Juani MOSCOSO Primary Care Provider [phone] Aldo Araiza RN Unavailable [phone] Claudine Arnold Unavailable Reason for Visit * Reason Onset Date Comments Med Refill Appointment 09/10/2023 - [facility] Encounter Details Date Type Department Care Team (Late st Contact Info) Description 09/10/2023 Refill [facility] [address] [place] [address] Rafael Shahid FNP Social History Tobacco Use [...] prescriber. Abhi-schedule an apt for 10/06/23 as auxg-exfci-PT-. documented in this encounter Plan of Treatment Upcoming Encounters Date Type Department Care Team (Late st Contact Info) Description 03/13/2025 2:15 PM EST Telemedicine [facility] [address] [place] [phone] Nalini Blum RN 03/28/2025 2:00 PM EST Office Visit [facility] [address] [place] [phone] Juani Sosa ANP [address] [place] [address] 04/03/2025 1:15 PM EST Office Visit [facility] [address] [place] [phone] Jacoby Donald MD [address] [place] [address] documented as of this encounter Visit Diagnoses Not on filedocumented in this encounter Additional Health Concerns Assessment Noted Time PHQ-9 Depression Total Score: 10 024 10:06 AM EST documented as of this encounter Care Teams Digital Media Associate Relationship Specialty Start Date End Date Juani Sosa ANP [address] [place] [address] PCP - General Family Medicine 02/11/22 Aldo Araiza, SIRISHA [address] [place] [phone] Registered Nurse Family Medicine 10/20/24 02/03/25 Claudine Arnold 10/20/24 02/03/25 Lilian Varghese Pool CoordinatorBow String Maker 07/02/23 documented as of this encounter
--- OUTSIDE RECORDS SUMMARY | 2025-03-08 14:49 | XMS_ITS | Encounter Summary ---
Author Organization [employer] Address [address] [facility] 7t [place] [address] Care Team Providers Care Counselor Dormitory Name Role Phone Juani Sosa Primary Care Provider [phone] Encounter Details Date Type Department Care Team (Latest Contact Info) Description 03/08/2025 Travel Social History Tobacco Use Types Packs/Day [...] Info) Description 03/13/2025 2:15 PM EST Telemedicine [facility] [address] [place] [phone] Nalini Blum RN 03/28/2025 2:00 PM EST Office Visit [address] [address] Juani Sosa ANP [address] [place] [address] 04/03/2025 1:15 PM EST Office Visit [address] [address] Jacoby Donald MD [address] [place] [address] documented as of this encounter Visit Diagnoses Not on filedocumented in this encounter Additional Health Concerns Assessment Noted Time PHQ-9 Depression Total Score: 15 025 1:15 PM EDT documented as of this encounter Care Teams Counselor Dormitory Relationship Specialty Start Date End Date Juani Sosa ANP [address] [place] [address] PCP - General Family Medicine 02/11/22 Lilian Varghese Supervisor Pipeline MaintenanceSupervisor Wool Shearing 07/02/23 documented as of this encounter
--- OUTSIDE RECORDS SUMMARY | 2025-03-08 14:50 | XMS_ITS | Encounter Summary ---
Author Organization [employer] Address [address] [place] [address] 7t [place] [address] Care Team Providers Care Pulley Maintainer Name Role Phone Juani Sosa Primary Care Provider [phone] Reason for Visit * Reason Onset Date Comments Prior Authorization 03/07/2025 Encounter Details Date Type Department Care Team ([facility] Contact Info) Description 03/07/2025 Telephone [facility] [address] [place], [place] [phone] Juani Sosa ANP [address] [place], [place] [phone] Prior Authorization Social History Tobacco Use Types Packs/Day Years [...] * Telephone Encounter - Lisa Muse - 03/07/2025 4:21 PM EST PA generated and sent to PCP for signature via [employer]. Once signed, will be faxed to [facility] and sent to scan. If patient calls to check status on above, please advise them to contact Pharmacy . documented in this encounter Plan of Treatment Upcoming Encounters Date Type Department Care Team (Late st Contact Info) Description 03/13/2025 2:15 PM EST Telemedicine [facility] [address] [place] [phone] Nalini Blum, SIRISHA 03/28/2025 2:00 PM EST Office Visit [facility] [address] [place] [phone] Juani Sosa ANP [address] [place] [phone] 04/03/2025 1:15 PM EST Office Visit [facility] [address] [place] [address] Jacoby Donald MD [address] [place] [address] documented as of this encounter Visit Diagnoses Not on filedocumented in this encounter Additional Health Concerns Assessment Noted Time PHQ-9 Depression Total Score: 15 025 1:15 PM EDT documented as of this encounter Care Teams Pulley Maintainer Relationship Specialty Start Date End Date Juani Sosa ANP [address] [place] [address] PCP - General Family Medicine 02/11/22 Lilian Varghese Sorting SupervisorEnergy Systems Laboratory Director 07/02/23 documented as of this encounter
== END 2025-03-08 11:09 | disposition home or self-care (01) ==
LOC: HO.HHCX 11:08
PROVIDERS: PCP Nurse Practitioner Primary Care; Referring Provider Internal Medicine; Visit Provider Internal Medicine
DX: R07.89 Other chest pain (principal)
CPT/HCPCS: 71101

== ENCOUNTER → 2025-03-08 11:24 | Outpatient (BNV) | payer MEDICAID, SELFPAY | PROVIDERS: PCP Nurse Practitioner Primary Care; Referring Provider Internal Medicine; Visit Provider Radiology Diagnostic Radiology | DX: R07.89 Other chest pain (principal) | CPT/HCPCS: 71101 ==